=== PATIENT | male | born 1950 | race African-American/Black ===

== ENCOUNTER 2016-07-19 22:43 | Inpatient (IN) | payer MEDICARE ==
[2016-07-19 23:11] VITALS: BMI 27.8
--- NOTE | 2016-07-19 23:11 | HP ---
[id number] 4d 3 Anxiety: 4-Mod. Anxious/Guarded Agitation: 4-Moderately Restless Paroxysmal Sweats: 2 Orientation: 3-Disoriented Date>2 days Tacttile Disturbances: 0-None Auditory Disturbances: 0-None Visual Disturbances: 0-None Headache: 0-None Present CIWA-Ar Total Score: 17 Admission ROS BHS - HPI Chief Complaint: withdrawal sx Allergies/Adverse Reactions: Allergies Allergy/AdvReac Type Severity Reaction Status Date / Time No Known Allergies Allergy Verified 07/19/16 22:47 History of Present Illness: 66 years old male with long history of alcohol nicotine cocaine dependence denies medical denies mental illness is admitted to detox Exam Limitations: No Limitations - Ebola screening Have you traveled outside of the country in the last 21 days: No Have you had contact with anyone from an Ebola affected area: No Have you been sick,other than usual withdrawal symptoms: No Do you have a fever: No - Review of Systems Constitutional: Chills, Loss of Appetite, Changes in sleep, Unexplained wgt Loss EENT: reports: Dental Problems (few teeth missing), Other (eye glasses) Respiratory: reports: No Symptoms reported Cardiac: reports: No Symptoms Reported GI: reports: Nausea, Poor Appetite, Poor Fluid Intake, Abdominal cramping : reports: No Symptoms Reported Musculoskeletal: reports: No Symptoms Reported Integumentary: reports: No Symptoms Reported Neuro: reports: Tremors Endocrine: reports: No Symptoms Reported Hematology: reports: No Symptoms Reported Psychiatric: reports: Judgement Intact, Mood/Affect Appropiate Other Systems: Reviewed and Negative Patient History - Patient Medical History Hx Anemia: No Hx Asthma: No Hx Chronic Obstructive Pulmonary Disease (COPD): No Hx Cancer: No Hx Cardiac Disorders: No Hx Congestive Heart Failure: No Hx Hypertension: No Hx Hypercholesterolemia: No Hx Pacemaker: No HX Cerebrovascular Accident: No Hx Seizures: No Hx Dementia: No Hx Diabetes: No Hx Gastrointestinal Disorders: No Hx Liver Disease: No Hx Genitourinary Disorders: No Hx Sexually Transmitted Disorders: No Hx Renal Disease (ESRD): No Hx Thyroid Disease: No Hx Human Immunodeficiency Virus (HIV): No (neg in 2011) Hx Hepatitis C: No (Does not remember when last tested.) Hx Depression: No Hx Suicide Attempt: No Hx Bipolar Disorder: No Hx Schizophrenia: No - Patient Surgical History Past Surgical History: No Hx Neurologic Surgery: No Hx Cataract Extraction: No Hx Cardiac Surgery: No Hx Lung Surgery: No Hx Breast Surgery: No Hx Breast Biopsy: No Hx Abdominal Surgery: No Hx Appendectomy: No Hx Cholecystectomy: No Hx Genitourinary Surgery: No Hx Orthopedic Surgery: No - PPD History Previous Implant?: Yes Documented Results: Negative w/proof Implanted On Prior [facility] Admission?: Yes Date: 05/30/16 Results: 0 PPD to be Administered?: No - Smoking Cessation Smoking history: Current every day smoker Have you smoked in the past 12 months: Yes Aproximately how many cigarettes per day: 40 Cigars Per Day: 0 Hx Chewing Tobacco Use: No Initiated information on smoking cessation: Yes 'Breaking Loose' booklet given: 07/19/16 - Substance & Tx. History Hx Alcohol Use: Yes Hx Substance Use: Yes Substance Use Type: Alcohol, Cocaine Hx Substance Use Treatment: Yes - Substances Abused Alcohol Route: Oral Frequency: Daily Amount used: 6 beer 16 [id number] Age of first use: 16 Date of Last Use: 07/19/16 Cocaine Route: Smoking Frequency: Daily Amount used: $100 Age of first use: 36 Date of Last Use: 07/18/16 Family Disease History - Family Disease History Family Disease History: Diabetes: Mother, Brother (.), Other: Father ( no contact) Admission Physical Exam [facility] - Physical General Appearance: Yes: Nourished, Appropriately Dressed, Mild Distress, Alcohol on Breath, Tremorous, Sweating, Anxious HEENTM: Yes: Hearing grossly Normal, Normal ENT Inspection, Normocephalic, Normal Voice Respiratory: Yes: Chest Non-Tender, Lungs Clear, Normal Breath Sounds, No Respiratory Distress, No Accessory Muscle Use Neck: Yes: Supple, Trachea in good position Breast: Yes: Breasts Symetrical Cardiology: Yes: Regular Rhythm, Regular Rate, S1, S2 Abdominal: Yes: Non Tender, Soft Genitourinary: Yes: Within Normal Limits Musculoskeletal: Yes: full range of Motion, Gait Steady Extremities: Yes: Normal Range of Motion, Non-Tender, Tremors 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: Yes: Alert, Motor Strength 5/5, Normal Mood/Affect, Normal Response Integumentary: Yes: Warm Lymphatic: Yes: Within Normal Limits - Diagnostic (1) Alcohol dependence with uncomplicated withdrawal Current Visit: Yes Status: Acute (2) Nicotine dependence Current Visit: Yes Status: Acute Qualifiers: Nicotine product type: cigarettes Substance use status: in withdrawal Qualified Code(s): F17.213 - Nicotine dependence, cigarettes, with withdrawal (3) Cocaine dependence, uncomplicated Current Visit: Yes Status: Chronic Cleared for Admission [facility] - Detox or Rehab [facility] Level of Care: Medically Managed Detox Regimen/Protocol: Librium BHS Breath Alcohol Content Breath Alcohol Content: 0.039 Vital Signs - Vital Signs Vital Signs Refused: No Temperature: 97.6 F Temperature Source: Oral Pulse Rate: 94 Respiratory Rate: 20 Blood Pressure: 119/72 BP Location: Left Arm Blood Pressure Position: Sitting - Height Height: 5 ft 10 in - Weight Weight: 194 lb Weight Measurement Method: Standing Scale Body Mass Index (BMI): 27.8 - Bowel Function Bowel Movement: Yes Urine Drug Screen - Control Is Test Valid: Yes - Results Drug Screen Negative: No Urine Drug Screen Results: MADHURI-Cocaine
[2016-07-19] MEDS ORDERED: P-EPHED 60MG/TRIPROLIDI 2.5MG TABLET PO PRN (23:15)
[2016-07-19] MEDS ORDERED: MENTHOL/PHENOL 1 EACH UD MM PRN (23:15)
[2016-07-19] MEDS ORDERED: MAG HYDROX/AL HYDROX/SIMETH 30 ML UNIT-DOSE CUP PO PRN (23:15)
[2016-07-19] MEDS ORDERED: guaiFENesin/D-METHORPHAN HB 10 ML UNIT-DOSE CUPS PO PRN (23:15)
[2016-07-19] MEDS ORDERED: hydrOXYzine PAMOATE 50 MG CAPSULE (FP) PO PRN (23:15)
[2016-07-19] MEDS ORDERED: diphenhydrAMINE HCL 50 MG CAPSULE PO PRN (23:15)
[2016-07-19] MEDS ORDERED: IBUPROFEN 400 MG TABLET (FP) PO PRN (23:15)
[2016-07-19] MEDS ORDERED: NICOTINE POLACRILEX 4 MG GUM BC PRN (23:15)
[2016-07-19] MEDS ORDERED: MAGNESIUM CITRATE 300 ML BOTTLE PO PRN (23:15)
[2016-07-19] MEDS ORDERED: chlordiazePOXIDE HCL 25 MG CAPSULE PO PRN (23:15)
[2016-07-19] MEDS ORDERED: NICOTINE 21 MG/24 HOURS TOPICAL PATCH TD PRN (23:15)
[2016-07-19] MEDS ORDERED: ACETAMINOPHEN 325 MG TABLET (FP) PO PRN (23:15)
[2016-07-19] MEDS ORDERED: LOPERAMIDE HCL 2 MG CAPSULE PO PRN (23:15)
[2016-07-19] MEDS ORDERED: MAGNESIUM HYDROX 2400MG/30ML ORAL SUSPENSION 30 ML CUP PO PRN (23:15)
[2016-07-19] MEDS: chlordiazePOXIDE HCL 25 MG CAPSULE PO SCH (23:46)
[2016-07-20] MEDS: chlordiazePOXIDE HCL 25 MG CAPSULE PO SCH ×4 (05:28→22:09)
--- NOTE | 2016-07-20 09:54 | PN ---
S CIWA - CIWA Score Nausea/Vomitin Muscle Tremors: 3 Anxiety: 3 Agitation: 2 Paroxysmal Sweats: 1-Minimal Palms Moist Orientation: 0-Oriented Tacttile Disturbances: 1-Very Mild Itch/Numbness Auditory Disturbances: 1-Very Mild Visual Disturbances: 1-Very Mild Sensitivity Headache: 2-Mild CIWA-Ar Total Score: 17 BHS Progress Note (SOAP) Subjective: ALERT,IRRITABLE,ANXIOUS,INTERRUPTED SLEEP,TREMOR Objective: 07/20/16 09:52 Vital Signs Temperature 97.2 F L 07/20/16 09:46 Pulse Rate 84 07/20/16 09:46 Respiratory Rate 18 07/20/16 09:46 Blood Pressure 119/76 07/20/16 09:46 O2 Sat by Pulse Oximetry (%) EKG NSR LABS PENDING Assessment: 07/20/16 09:54 WITHDRAWAL SYMPTOM Plan: CONTINUE DETOX
[2016-07-20 09:59] LABS: MCH 27.4 pg (25.7-33.7); MCHC 33.4 g/dl (32.0-35.9); MEAN PLT VOLUME 7.9 fl (7.5-11.1); PLATELET COUNT 211 K/MM3 (134-434); RDW 15.2 % (11.9-15.9); WHITE BLOOD COUNT 4.3 K/mm3 (4.0-10.0)
[2016-07-20] MEDS: PRENATAL VITAMINS W/ FOLIC ACID TABLET (FP) PO SCH (10:21)
[2016-07-20 10:44] LABS: ALBUMIN 3.3 g/dl (3.4-5.0); ALK PHOS 73 U/L (45-117); ANION GAP 8 (8-16); BILIRUBIN,TOTAL 0.7 mg/dL (0.2-1.0); CALCIUM 8.8 mg/dL (8.5-10.1); CO2 28 mmol/L (21-32); GLUCOSE,RANDOM 83 mg/dL (74-106); SGOT/AST 37 U/L (15-37); SGPT/ALT 30 U/L (12-78)
--- NOTE | 2016-07-20 15:26 | EKG ---
Test Reason : Blood Pressure : / mmHG Vent. Rate : 076 BPM Atrial Rate : 076 BPM P-R Int : 186 ms QRS Dur : 106 ms QT Int : 394 ms P-R-T Axes : 082 -46 -03 degrees QTc Int : 443 ms NORMAL SINUS RHYTHM LEFT ANTERIOR FASCICULAR BLOCK MINIMAL VOLTAGE CRITERIA FOR LVH, MAY BE NORMAL VARIANT SEPTAL INFARCT (CITED ON OR BEFORE 28-MAY-2016) ABNORMAL ECG WHEN COMPARED WITH ECG OF 28-MAY-2016 13:35, QUESTIONABLE CHANGE IN INITIAL FORCES OF SEPTAL LEADS T WAVE AMPLITUDE HAS INCREASED IN LATERAL LEADS Confirmed by DEMETRIS YAÑEZ MD ([id number]) on 07/20/2016 3:25:45 PM Referred By: Confirmed By:DEMETRIS YAÑEZ MD
[2016-07-20] MEDS: THIAMINE HCL 100 MG TABLET (FP) PO SCH (22:09)
[2016-07-20 23:05] LABS: URINE APPEARANCE CLEAR; URINE BILIRUBIN NEGATIVE (NEGATIVE); URINE BLOOD NEGATIVE (NEGATIVE); URINE COLOR LTYELLOW; URINE GLUCOSE (UA) NEGATIVE (NEGATIVE); URINE KETONE NEGATIVE (NEGATIVE); URINE LEUK ESTERASE NEGATIVE (NEGATIVE); URINE NITRITE NEGATIVE (NEGATIVE); URINE PROTEIN NEGATIVE (NEGATIVE); URINE UROBILINOGEN NEGATIVE E.U./dl (0.2-1.0)
[2016-07-21] MEDS: chlordiazePOXIDE HCL 25 MG CAPSULE PO SCH ×3 (05:28→17:29)
[2016-07-21] MEDS: PRENATAL VITAMINS W/ FOLIC ACID TABLET (FP) PO SCH (11:54)
--- NOTE | 2016-07-21 14:27 | PN ---
[facility] CIWA - CIWA Score Nausea/Vomitin-Mild Nausea/No Vomiting Muscle Tremors: 4-Moderate,w/Arms Extend Anxiety: 1-Mildly Anxious Agitation: 0-Normal Activity Paroxysmal Sweats: 3 Orientation: 1-Uncertain about Date Tacttile Disturbances: 2-Mild Itch/Numbness/Burn Auditory Disturbances: 2-Mild Harshness/Frighten Visual Disturbances: 0-None Headache: 0-None Present CIWA-Ar Total Score: 14 S Progress Note (SOAP) Subjective: Fatigue, Sweating, Tremors. Objective: PT. A & 0 X 2 (DISORIENTED ABOUT DAY / DATE). 07/21/16 14:24 Vital Signs Temperature 98.4 F 07/21/16 14:17 Pulse Rate 86 07/21/16 14:17 Respiratory Rate 20 07/21/16 14:17 Blood Pressure 136/87 07/21/16 14:17 O2 Sat by Pulse Oximetry (%) Laboratory Last Values WBC 4.3 K/mm3 (4.0-10.0) 07/20/16 07:00 RBC 4.54 M/mm3 (4.00-5.60) 07/20/16 07:00 Hgb 12.5 GM/dL (11.7-16.9) 07/20/16 07:00 Hct 37.3 % (35.4-49) 07/20/16 07:00 MCV 82.0 fl (80-96) 07/20/16 07:00 MCHC 33.4 g/dl (32.0-35.9) 07/20/16 07:00 RDW 15.2 % (11.9-15.9) 07/20/16 07:00 Plt Count 211 K/MM3 (134-434) 07/20/16 07:00 MPV 7.9 fl (7.5-11.1) 07/20/16 07:00 Sodium 143 mmol/L (136-145) 07/20/16 07:00 Potassium 3.6 mmol/L (3.5-5.1) 07/20/16 07:00 Chloride 107 mmol/L (98-107) 07/20/16 07:00 Carbon Dioxide 28 mmol/L (21-32) 07/20/16 07:00 Anion Gap 8 (8-16) 07/20/16 07:00 BUN 10 mg/dL (7-18) D 07/20/16 07:00 Creatinine 1.0 mg/dL (0.7-1.3) 07/20/16 07:00 Creat Clearance w eGFR > 60 (>60) 07/20/16 07:00 Random Glucose 83 mg/dL (74-106) D 07/20/16 07:00 Calcium 8.8 mg/dL (8.5-10.1) 07/20/16 07:00 Total Bilirubin 0.7 mg/dL (0.2-1.0) D 07/20/16 07:00 AST 37 U/L (15-37) D 07/20/16 07:00 ALT 30 U/L (12-78) D 07/20/16 07:00 Alkaline Phosphatase 73 U/L (45-117) 07/20/16 07:00 Total Protein 6.0 g/dl (6.4-8.2) L 07/20/16 07:00 Albumin 3.3 g/dl (3.4-5.0) L 07/20/16 07:00 Urine Color Ltyellow 07/20/16 22:29 Urine Appearance Clear 07/20/16 22:29 Urine pH 6.0 (5.0-8.0) 07/20/16 22:29 Ur Specific [place] 1.014 (1.001-1.035) 07/20/16 22:29 Urine Protein Negative (NEGATIVE) 07/20/16 22:29 Urine Glucose (UA) Negative (NEGATIVE) 07/20/16 22:29 Urine Ketones Negative (NEGATIVE) 07/20/16 22:29 Urine Blood Negative (NEGATIVE) 07/20/16 22:29 Urine Nitrite Negative (NEGATIVE) 07/20/16 22:29 Urine Bilirubin Negative (NEGATIVE) 07/20/16 22:29 Urine Urobilinogen Negative E.U./dl (0.2-1.0) 07/20/16 22:29 Ur Leukocyte Esterase Negative (NEGATIVE) 07/20/16 22:29 RPR Titer Nonreactive (NONREACTIVE) 07/20/16 07:00 Hepatitis C Antibody 0.1 s/co ratio (0.0-0.9) 07/19/16 07:00 LABS NOTED. Assessment: 07/21/16 14:26 WITHDRAWAL SYMPTOMS. Plan: CONTINUE DETOX.
[2016-07-21] MEDS: THIAMINE HCL 100 MG TABLET (FP) PO SCH (22:18)
[2016-07-21] MEDS: chlordiazePOXIDE 5 MG CAPSULE PO SCH (22:18)
[2016-07-22] MEDS: chlordiazePOXIDE 5 MG CAPSULE PO SCH ×2 (05:16→10:18)
[2016-07-22 09:37] VITALS: BP 125/86; PULSE 85; TEMP 96.4
[2016-07-22] MEDS: PRENATAL VITAMINS W/ FOLIC ACID TABLET (FP) PO SCH (10:18)
--- NOTE | 2016-07-22 14:23 | DS ---
[facility] Detox Discharge Summary Admission Date: 07/19/16 Discharge Date: 07/22/16 - History Present History: Alcohol Dependence, Cocaine Dependence Additional Comments: ADVISED PATIENT TO FOLLOW-UP WITH [facility] FOR GENERAL MEDICAL ASSESSMENT. - Physical Exam Results Vital Signs: Vital Signs Temperature 96.4 F L 07/22/16 09:37 Pulse Rate 85 07/22/16 09:37 Respiratory Rate 18 07/22/16 09:37 Blood Pressure 125/86 07/22/16 09:37 O2 Sat by Pulse Oximetry (%) Pertinent Admission Physical Exam Findings: WITHDRAWAL SYMPTOMS. Laboratory Last Values WBC 4.3 K/mm3 (4.0-10.0) 07/20/16 07:00 RBC 4.54 M/mm3 (4.00-5.60) 07/20/16 07:00 Hgb 12.5 GM/dL (11.7-16.9) 07/20/16 07:00 Hct 37.3 % (35.4-49) 07/20/16 07:00 MCV 82.0 fl (80-96) 07/20/16 07:00 MCHC 33.4 g/dl (32.0-35.9) 07/20/16 07:00 RDW 15.2 % (11.9-15.9) 07/20/16 07:00 Plt Count 211 K/MM3 (134-434) 07/20/16 07:00 MPV 7.9 fl (7.5-11.1) 07/20/16 07:00 Sodium 143 mmol/L (136-145) 07/20/16 07:00 Potassium 3.6 mmol/L (3.5-5.1) 07/20/16 07:00 Chloride 107 mmol/L (98-107) 07/20/16 07:00 Carbon Dioxide 28 mmol/L (21-32) 07/20/16 07:00 Anion Gap 8 (8-16) 07/20/16 07:00 BUN 10 mg/dL (7-18) D 07/20/16 07:00 Creatinine 1.0 mg/dL (0.7-1.3) 07/20/16 07:00 Creat Clearance w eGFR > 60 (>60) 07/20/16 07:00 Random Glucose 83 mg/dL (74-106) D 07/20/16 07:00 Calcium 8.8 mg/dL (8.5-10.1) 07/20/16 07:00 Total Bilirubin 0.7 mg/dL (0.2-1.0) D 07/20/16 07:00 AST 37 U/L (15-37) D 07/20/16 07:00 ALT 30 U/L (12-78) D 07/20/16 07:00 Alkaline Phosphatase 73 U/L (45-117) 07/20/16 07:00 Total Protein 6.0 g/dl (6.4-8.2) L 07/20/16 07:00 Albumin 3.3 g/dl (3.4-5.0) L 07/20/16 07:00 Urine Color Ltyellow 07/20/16 22:29 Urine Appearance Clear 07/20/16 22:29 Urine pH 6.0 (5.0-8.0) 07/20/16 22:29 Ur Specific [place] 1.014 (1.001-1.035) 07/20/16 22:29 Urine Protein Negative (NEGATIVE) 07/20/16 22:29 Urine Glucose (UA) Negative (NEGATIVE) 07/20/16 22:29 Urine Ketones Negative (NEGATIVE) 07/20/16 22:29 Urine Blood Negative (NEGATIVE) 07/20/16 22:29 Urine Nitrite Negative (NEGATIVE) 07/20/16 22:29 Urine Bilirubin Negative (NEGATIVE) 07/20/16 22:29 Urine Urobilinogen Negative E.U./dl (0.2-1.0) 07/20/16 22:29 Ur Leukocyte Esterase Negative (NEGATIVE) 07/20/16 22:29 RPR Titer Nonreactive (NONREACTIVE) 07/20/16 07:00 Hepatitis C Antibody 0.1 s/co ratio (0.0-0.9) 07/19/16 07:00 LABS NOTED. - Treatment Hospital Course: Detoxed Safely - Medication Discharge Medications: Ambulatory Orders NK [No Known Home Medication] 03/19/14 - Diagnosis (1) Alcohol dependence with uncomplicated withdrawal Status: Acute (2) Nicotine dependence Status: Chronic Qualifiers: Nicotine product type: cigarettes Substance use status: in withdrawal Qualified Code(s): F17.213 - Nicotine dependence, cigarettes, with withdrawal (3) Cocaine dependence, uncomplicated Status: Acute - AMA Did Patient Leave Against Medical Advice: Yes (PATIENT DID NOT WANT TO STAY TO COMPLETE DETOX PROTOCOL.)
[2016-07-22] MEDS ORDERED: chlordiazePOXIDE HCL 10 MG CAPSULE PO SCH (23:00)
== END 2016-07-22 11:00 | disposition left against medical advice (07) | DRG 770 ==
LOC: YASAS 22:43 → Y3N 23:04
PROVIDERS: ADMIT Internal Medicine; ATTEND Internal Medicine
PROC: HZ2ZZZZ Detoxification Services for Substance Abuse Treatment (ICD-10-PCS; principal; 2016-07-22)
DX: F10.230 Alcohol dependence with withdrawal, uncomplicated (principal); F14.20 Cocaine dependence, uncomplicated; F17.213 Nicotine dependence, cigarettes, with withdrawal
CPT/HCPCS: 36415; 80053; 81003; 85027; 86593; 93005; 93010

== ENCOUNTER 2016-12-29 08:36 | Inpatient (IN) | payer SELFPAY ==
[2016-12-29 09:22] VITALS: BMI 22.9
--- NOTE | 2016-12-29 15:05 | HP ---
CIWA Score - CIWA Score Nausea/Vomitin Muscle Tremors: 3 Anxiety: 3 Agitation: 3 Paroxysmal Sweats: 1-Minimal Palms Moist Orientation: 0-Oriented Tacttile Disturbances: 2-Mild Itch/Numbness/Burn Auditory Disturbances: 2-Mild Harshness/Frighten Visual Disturbances: 2-Mild Sensitivity Headache: 2-Mild CIWA-Ar Total Score: 21 Admission ROS BHS - HPI Chief Complaint: i need help to stop drinking alcohol and cocaine Allergies/Adverse Reactions: Allergies Allergy/AdvReac Type Severity Reaction Status Date / Time No Known Allergies Allergy Verified 12/29/16 12:48 History of Present Illness: this 66 years old male with alcohol and cocaine dependence,seeking detox,last treatment [facility] 07/19/16 tp 07/22/16 syncope multiple admissions in detox nicotine dependence longest period of sobriety 2 years Exam Limitations: No Limitations - Ebola screening Have you traveled outside of the country in the last 21 days: No Have you been sick,other than usual withdrawal symptoms: No - Review of Systems Constitutional: Loss of Appetite, Malaise, Night Sweats, Changes in sleep, Unintentional Wgt. Loss EENT: reports: Nose Congestion Respiratory: reports: No Symptoms reported GI: reports: No Symptoms Reported : reports: No Symptoms Reported Musculoskeletal: reports: Back Pain, Muscle Pain Integumentary: reports: Dryness Neuro: reports: Tremors Endocrine: reports: No Symptoms Reported Hematology: reports: No Symptoms Reported Psychiatric: reports: No Sypmtoms Reported, Judgement Intact, Mood/Affect Appropiate, Orientated x3 Patient History - Patient Medical History Hx Anemia: No Hx Asthma: No Hx Chronic Obstructive Pulmonary Disease (COPD): No Hx Cancer: No Hx Cardiac Disorders: No Hx Congestive Heart Failure: No Hx Hypertension: No Hx Hypercholesterolemia: No Hx Pacemaker: No HX Cerebrovascular Accident: No Hx Seizures: No Hx Dementia: No Hx Diabetes: No Hx Gastrointestinal Disorders: No Hx Liver Disease: No Hx Genitourinary Disorders: No Hx Sexually Transmitted Disorders: No Hx Renal Disease (ESRD): No Hx Thyroid Disease: No Hx Human Immunodeficiency Virus (HIV): No (2014 last negative) Hx Hepatitis C: No Hx Depression: No Hx Suicide Attempt: No Hx Bipolar Disorder: No Hx Schizophrenia: No Other Medical History: no suicidal,no homicdal - Patient Surgical History Past Surgical History: No Hx Neurologic Surgery: No Hx Cataract Extraction: No Hx Cardiac Surgery: No Hx Lung Surgery: No Hx Breast Surgery: No Hx Breast Biopsy: No Hx Abdominal Surgery: No Hx Appendectomy: No Hx Cholecystectomy: No Hx Genitourinary Surgery: No Hx Section: No Hx Orthopedic Surgery: No Anesthesia Reaction: No - PPD History Previous Implant?: Yes Documented Results: Negative w/proof Implanted On Prior [facility] Admission?: Yes Date: 05/30/16 Results: 0 mm PPD to be Administered?: No - Smoking Cessation Smoking history: Current every day smoker Have you smoked in the past 12 months: Yes Aproximately how many cigarettes per day: 40 Cigars Per Day: 0 Hx Chewing Tobacco Use: No Initiated information on smoking cessation: Yes 'Breaking Loose' booklet given: 12/29/16 - Substance & Tx. History Hx Alcohol Use: Yes Hx Substance Use: Yes Substance Use Type: Alcohol, Cocaine Hx Substance Use Treatment: Yes ([facility] last 07/19 17 tp 09/21/16) - Substances Abused Crack Route: Smoking Frequency: Daily Amount used: $50-60 Age of first use: 36 Date of Last Use: 12/28/16 Alcohol-beer Route: Oral Frequency: Daily Amount used: 2-6 pks. Age of first use: 16 Date of Last Use: 12/28/16 Family Disease History - Family Disease History Family Disease History: Diabetes: Mother, Brother (.), Other: Father ( no contact) Admission Physical Exam BHS - Vital Signs Vital Signs: Vital Signs - 24 hr 12/29/16 09:10 Temperature 96.9 F L Pulse Rate 70 Respiratory 18 Rate Blood Pressure 134/60 - Physical General Appearance: Yes: Moderate Distress, Tremorous, Irritable, Anxious HEENTM: Yes: Normal ENT Inspection, DAVIS, Pharynx Normal Respiratory: Yes: Lungs Clear, Normal Breath Sounds, No Respiratory Distress Neck: Yes: Within Normal Limits Breast: Yes: Within Normal Limits Cardiology: Yes: Within Normal Limits, Regular Rhythm, Regular Rate, S1, S2 Abdominal: Yes: Normal Bowel Sounds, Non Tender, Soft, Organomegaly Genitourinary: Yes: Within Normal Limits Back: Yes: Muscle Spasm Musculoskeletal: Yes: full range of Motion, Back pain, Muscle Pain Extremities: Yes: Normal Range of Motion, Tremors 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: Yes: make up worker II-XII NML intact, Fully Oriented, Alert, Motor Strength 5/5 Integumentary: Yes: Dry Lymphatic: Yes: Within Normal Limits - Diagnostic (1) Alcohol dependence with uncomplicated withdrawal Current Visit: No Status: Acute (2) Cocaine dependence Current Visit: No Status: Acute Qualifiers: Substance use status: uncomplicated Qualified Code(s): F14.20 - Cocaine dependence, uncomplicated (3) Nicotine dependence Current Visit: No Status: Chronic Qualifiers: Nicotine product type: cigarettes Substance use status: in withdrawal Qualified Code(s): F17.213 - Nicotine dependence, cigarettes, with withdrawal (4) Syncope Current Visit: Yes Status: Acute (5) Weight loss Current Visit: Yes Status: Acute Cleared for Admission S - Detox or Rehab S Level of Care: Medically Managed Detox Regimen/Protocol: Librium S Breath Alcohol Content Breath Alcohol Content: 0 Urine Drug Screen - Results Drug Screen Negative: No Urine Drug Screen Results: MADHURI-Cocaine
[2016-12-29] MEDS ORDERED: hydrOXYzine PAMOATE 25 MG CAPSULE (FP) PO PRN (15:14)
[2016-12-29] MEDS ORDERED: MAG HYDROX/AL HYDROX/SIMETH 30 ML UNIT-DOSE CUP PO PRN (15:14)
[2016-12-29] MEDS ORDERED: IBUPROFEN 400 MG TABLET (FP) PO PRN (15:14)
[2016-12-29] MEDS ORDERED: diphenhydrAMINE HCL 50 MG CAPSULE PO PRN (15:14)
[2016-12-29] MEDS ORDERED: P-EPHED 60MG/TRIPROLIDI 2.5MG TABLET PO PRN (15:14)
[2016-12-29] MEDS ORDERED: LOPERAMIDE HCL 2 MG CAPSULE PO PRN (15:14)
[2016-12-29] MEDS ORDERED: MENTHOL/PHENOL 1 EACH UD MM PRN (15:14)
[2016-12-29] MEDS ORDERED: chlordiazePOXIDE HCL 25 MG CAPSULE PO PRN (15:14)
[2016-12-29] MEDS ORDERED: ACETAMINOPHEN 325 MG TABLET (FP) PO PRN (15:14)
[2016-12-29] MEDS ORDERED: guaiFENesin/D-METHORPHAN HB 10 ML UNIT-DOSE CUPS PO PRN (15:14)
[2016-12-29] MEDS ORDERED: MAGNESIUM HYDROX 2400MG/30ML ORAL SUSPENSION 30 ML CUP PO PRN (15:14)
[2016-12-29] MEDS ORDERED: MAGNESIUM CITRATE 300 ML BOTTLE PO PRN (15:14)
[2016-12-29] MEDS ORDERED: chlordiazePOXIDE HCL 25 MG CAPSULE PO ONE (15:45)
[2016-12-29] MEDS: chlordiazePOXIDE HCL 25 MG CAPSULE PO SCH ×2 (16:49→22:17)
[2016-12-29 18:21] LABS: URINE APPEARANCE CLEAR; URINE BILIRUBIN NEGATIVE (NEGATIVE); URINE BLOOD NEGATIVE (NEGATIVE); URINE COLOR YELLOW; URINE GLUCOSE (UA) NEGATIVE (NEGATIVE); URINE KETONE NEGATIVE (NEGATIVE); URINE LEUK ESTERASE NEGATIVE (NEGATIVE); URINE NITRITE NEGATIVE (NEGATIVE); URINE PROTEIN NEGATIVE (NEGATIVE); URINE UROBILINOGEN NEGATIVE mg/dL (0.2-1.0)
[2016-12-29] MEDS: THIAMINE HCL 100 MG TABLET (FP) PO SCH (22:17)
[2016-12-30] MEDS: chlordiazePOXIDE HCL 25 MG CAPSULE PO SCH ×4 (06:23→22:34)
[2016-12-30 10:39] LABS: MCH 29.1 pg (25.7-33.7); MCHC 33.3 g/dl (32.0-35.9); MEAN CELL VOLUME 87.4 fl (80-96); MEAN PLT VOLUME 8.5 fl (7.5-11.1); PLATELET COUNT 241 K/MM3 (134-434); RDW 14.9 % (11.9-15.9); WHITE BLOOD COUNT 3.6 K/mm3 (4.0-10.0)
[2016-12-30 10:50] LABS: ALBUMIN 3.9 g/dl (3.4-5.0); ANION GAP 5 (8-16); CALCIUM 9.7 mg/dL (8.5-10.1); CO2 32 mmol/L (21-32); GLUCOSE,RANDOM 109 mg/dL (74-106)
[2016-12-30 10:53] LABS: ALK PHOS 87 U/L (45-117); BILIRUBIN,TOTAL 0.7 mg/dL (0.2-1.0); CREATININE 1.2 mg/dL (0.7-1.3); SGOT/AST 43 U/L (15-37); SGPT/ALT 35 U/L (12-78); TOT PROT 7.3 g/dl (6.4-8.2)
[2016-12-30] MEDS: PRENATAL VITAMINS W/ FOLIC ACID TABLET (FP) PO SCH (11:26)
--- NOTE | 2016-12-30 14:47 | PN ---
S CIWA - CIWA Score Nausea/Vomitin Muscle Tremors: 3 Anxiety: 3 Agitation: 3 Paroxysmal Sweats: 1-Minimal Palms Moist Orientation: 0-Oriented Tacttile Disturbances: 1-Very Mild Itch/Numbness Auditory Disturbances: 1-Very Mild Visual Disturbances: 1-Very Mild Sensitivity Headache: 2-Mild CIWA-Ar Total Score: 18 S Progress Note (SOAP) Subjective: ALERT,IRRITABLE,ANXIOUS,INTERRUPTED SLEEP,TREMOR Objective: 12/30/16 14:44 Vital Signs Temperature 97.3 F L 12/30/16 14:32 Pulse Rate 78 12/30/16 14:32 Respiratory Rate 18 12/30/16 14:32 Blood Pressure 104/66 12/30/16 14:32 O2 Sat by Pulse Oximetry (%) EKS NSR,INVERTED TIN 2.3.AVF,V5 TO V6 RATE 59/MIN NO CHEST PAIN,NO SOB,NO DIZZINESS Laboratory Last Values WBC 3.6 K/mm3 (4.0-10.0) L 12/30/16 06:10 RBC 4.85 M/mm3 (4.00-5.60) 12/30/16 06:10 Hgb 14.1 GM/dL (11.7-16.9) D 12/30/16 06:10 Hct 42.4 % (35.4-49) 12/30/16 06:10 MCV 87.4 fl (80-96) 12/30/16 06:10 MCH 29.1 pg (25.7-33.7) 12/30/16 06:10 MCHC 33.3 g/dl (32.0-35.9) 12/30/16 06:10 RDW 14.9 % (11.9-15.9) 12/30/16 06:10 Plt Count 241 K/MM3 (134-434) 12/30/16 06:10 MPV 8.5 fl (7.5-11.1) 12/30/16 06:10 Sodium 142 mmol/L (136-145) 12/30/16 06:10 Potassium 4.5 mmol/L (3.5-5.1) D 12/30/16 06:10 Chloride 105 mmol/L (98-107) 12/30/16 06:10 Carbon Dioxide 32 mmol/L (21-32) 12/30/16 06:10 Anion Gap 5 (8-16) L 12/30/16 06:10 BUN 16 mg/dL (7-18) D 12/30/16 06:10 Creatinine 1.2 mg/dL (0.7-1.3) 12/30/16 06:10 Creat Clearance w eGFR > 60 (>60) 12/30/16 06:10 Random Glucose 109 mg/dL (74-106) H D 12/30/16 06:10 Calcium 9.7 mg/dL (8.5-10.1) 12/30/16 06:10 Total Bilirubin 0.7 mg/dL (0.2-1.0) 12/30/16 06:10 AST 43 U/L (15-37) H 12/30/16 06:10 ALT 35 U/L (12-78) 12/30/16 06:10 Alkaline Phosphatase 87 U/L (45-117) 12/30/16 06:10 Total Protein 7.3 g/dl (6.4-8.2) D 12/30/16 06:10 Albumin 3.9 g/dl (3.4-5.0) 12/30/16 06:10 Urine Color Yellow 12/29/16 17:50 Urine Appearance Clear 12/29/16 17:50 Urine pH 5.0 (5.0-8.0) 12/29/16 17:50 Ur Specific [place] 1.020 (1.005-1.025) 12/29/16 17:50 Urine Protein Negative (NEGATIVE) 12/29/16 17:50 Urine Glucose (UA) Negative (NEGATIVE) 12/29/16 17:50 Urine Ketones Negative (NEGATIVE) 12/29/16 17:50 Urine Blood Negative (NEGATIVE) 12/29/16 17:50 Urine Nitrite Negative (NEGATIVE) 12/29/16 17:50 Urine Bilirubin Negative (NEGATIVE) 12/29/16 17:50 Urine Urobilinogen Negative mg/dL (0.2-1.0) 12/29/16 17:50 Ur Leukocyte Esterase Negative (NEGATIVE) 12/29/16 17:50 RPR Titer Nonreactive (NONREACTIVE) 12/30/16 06:10 Assessment: 12/30/16 14:46 WITHDRAWAL SYMPTOM Plan: CONTINUE DETOX
[2016-12-30] MEDS: THIAMINE HCL 100 MG TABLET (FP) PO SCH (22:34)
[2016-12-31] MEDS: chlordiazePOXIDE HCL 25 MG CAPSULE PO SCH ×2 (06:47→11:28)
[2016-12-31] MEDS: PRENATAL VITAMINS W/ FOLIC ACID TABLET (FP) PO SCH (11:30)
--- NOTE | 2016-12-31 12:23 | PN ---
S CIWA - CIWA Score Nausea/Vomitin Muscle Tremors: 3 Anxiety: 3 Agitation: 2 Paroxysmal Sweats: 1-Minimal Palms Moist Orientation: 0-Oriented Tacttile Disturbances: 1-Very Mild Itch/Numbness Auditory Disturbances: 1-Very Mild Visual Disturbances: 1-Very Mild Sensitivity Headache: 1-Very Mild CIWA-Ar Total Score: 16 S Progress Note (SOAP) Subjective: ALERT,IRRITABLE,ANXIOUS,INTERRUPTED SLEEP,TREMOR Objective: 12/31/16 12:22 Vital Signs Temperature 98.1 F 12/31/16 10:00 Pulse Rate 69 12/31/16 10:00 Respiratory Rate 16 12/31/16 10:00 Blood Pressure 120/71 12/31/16 10:00 O2 Sat by Pulse Oximetry (%) 12/31/16 12:22 Laboratory Last Values WBC 3.6 K/mm3 (4.0-10.0) L 12/30/16 06:10 RBC 4.85 M/mm3 (4.00-5.60) 12/30/16 06:10 Hgb 14.1 GM/dL (11.7-16.9) D 12/30/16 06:10 Hct 42.4 % (35.4-49) 12/30/16 06:10 MCV 87.4 fl (80-96) 12/30/16 06:10 MCH 29.1 pg (25.7-33.7) 12/30/16 06:10 MCHC 33.3 g/dl (32.0-35.9) 12/30/16 06:10 RDW 14.9 % (11.9-15.9) 12/30/16 06:10 Plt Count 241 K/MM3 (134-434) 12/30/16 06:10 MPV 8.5 fl (7.5-11.1) 12/30/16 06:10 Sodium 142 mmol/L (136-145) 12/30/16 06:10 Potassium 4.5 mmol/L (3.5-5.1) D 12/30/16 06:10 Chloride 105 mmol/L (98-107) 12/30/16 06:10 Carbon Dioxide 32 mmol/L (21-32) 12/30/16 06:10 Anion Gap 5 (8-16) L 12/30/16 06:10 BUN 16 mg/dL (7-18) D 12/30/16 06:10 Creatinine 1.2 mg/dL (0.7-1.3) 12/30/16 06:10 Creat Clearance w eGFR > 60 (>60) 12/30/16 06:10 Random Glucose 109 mg/dL (74-106) H D 12/30/16 06:10 Calcium 9.7 mg/dL (8.5-10.1) 12/30/16 06:10 Total Bilirubin 0.7 mg/dL (0.2-1.0) 12/30/16 06:10 AST 43 U/L (15-37) H 12/30/16 06:10 ALT 35 U/L (12-78) 12/30/16 06:10 Alkaline Phosphatase 87 U/L (45-117) 12/30/16 06:10 Total Protein 7.3 g/dl (6.4-8.2) D 12/30/16 06:10 Albumin 3.9 g/dl (3.4-5.0) 12/30/16 06:10 Urine Color Yellow 12/29/16 17:50 Urine Appearance Clear 12/29/16 17:50 Urine pH 5.0 (5.0-8.0) 12/29/16 17:50 Ur Specific [place] 1.020 (1.005-1.025) 12/29/16 17:50 Urine Protein Negative (NEGATIVE) 12/29/16 17:50 Urine Glucose (UA) Negative (NEGATIVE) 12/29/16 17:50 Urine Ketones Negative (NEGATIVE) 12/29/16 17:50 Urine Blood Negative (NEGATIVE) 12/29/16 17:50 Urine Nitrite Negative (NEGATIVE) 12/29/16 17:50 Urine Bilirubin Negative (NEGATIVE) 12/29/16 17:50 Urine Urobilinogen Negative mg/dL (0.2-1.0) 12/29/16 17:50 Ur Leukocyte Esterase Negative (NEGATIVE) 12/29/16 17:50 RPR Titer Nonreactive (NONREACTIVE) 12/30/16 06:10 Assessment: 12/31/16 12:22 WITHDRAWAL SYMPTOM Plan: CONTINUE DETOX
[2016-12-31] MEDS: chlordiazePOXIDE 5 MG CAPSULE PO SCH ×2 (17:25→22:17)
[2016-12-31] MEDS: THIAMINE HCL 100 MG TABLET (FP) PO SCH (22:17)
--- NOTE | 2016-12-31 22:34 | EKG ---
Test Reason : Blood Pressure : / mmHG Vent. Rate : 059 BPM Atrial Rate : 059 BPM P-R Int : 170 ms QRS Dur : 120 ms QT Int : 416 ms P-R-T Axes : 074 -39 -44 degrees QTc Int : 411 ms SINUS BRADYCARDIA LEFT AXIS DEVIATION NON-SPECIFIC INTRA-VENTRICULAR CONDUCTION DELAY T WAVE ABNORMALITY, CONSIDER INFEROLATERAL ISCHEMIA ABNORMAL ECG WHEN COMPARED WITH ECG OF 19-JUL-2016 22:49, CRITERIA FOR SEPTAL INFARCT ARE NO LONGER PRESENT T WAVE INVERSION MORE EVIDENT IN INFERIOR LEADS T WAVE INVERSION NOW EVIDENT IN LATERAL LEADS Confirmed by OSCAR JAIME MD ([id number]) on 12/31/2016 10:33:56 PM Referred By: Frederick Metzger Confirmed By:OSCAR JAIME MD
[2017-01-01] MEDS: chlordiazePOXIDE 5 MG CAPSULE PO SCH ×2 (06:31→10:40)
[2017-01-01] MEDS: PRENATAL VITAMINS W/ FOLIC ACID TABLET (FP) PO SCH (10:40)
--- NOTE | 2017-01-01 11:10 | PN ---
S Progress Note (SOAP) Subjective: ALERT,IRRITABLE,ANXIOUS,INTERRUPTED SLEEP Objective: 01/01/17 11:09 Vital Signs Temperature 98.2 F 01/01/17 10:00 Pulse Rate 78 01/01/17 10:00 Respiratory Rate 18 01/01/17 10:00 Blood Pressure 104/71 01/01/17 10:00 O2 Sat by Pulse Oximetry (%) Assessment: 01/01/17 11:10 WITHDRAWAL SYMPTOM Plan: CONTINUE DETOX,DISCHARGE IN AM
[2017-01-01] MEDS: chlordiazePOXIDE HCL 10 MG CAPSULE PO SCH ×2 (17:05→22:11)
[2017-01-01] MEDS: THIAMINE HCL 100 MG TABLET (FP) PO SCH (22:11)
[2017-01-02 06:26] VITALS: BP 113/67; PULSE 67; TEMP 96.3
[2017-01-02] MEDS: chlordiazePOXIDE HCL 10 MG CAPSULE PO SCH (06:34)
--- NOTE | 2017-01-02 08:13 | DS ---
[facility] Detox Discharge Summary Admission Date: 12/29/16 Discharge Date: 01/02/17 - History Present History: Alcohol Dependence, Cocaine Dependence Additional Comments: follow up with after care program as arrangement Pertinent Past History: syncope nicotine dependence weight loss - Physical Exam Results Vital Signs: Vital Signs Temperature 96.3 F L 01/02/17 06:00 Pulse Rate 67 01/02/17 06:00 Respiratory Rate 18 01/02/17 06:00 Blood Pressure 113/67 01/02/17 06:00 O2 Sat by Pulse Oximetry (%) Pertinent Admission Physical Exam Findings: withdrawal symptom - Treatment Hospital Course: Detox Protocol Followed, Detoxed Safely, Responded well, Discharged Condition Good Patient has Accepted a Rehab Referral to: declined - Medication Discharge Medications: Ambulatory Orders NK [No Known Home Medication] 03/19/14 - Diagnosis (1) Alcohol dependence with uncomplicated withdrawal Current Visit: No Status: Acute (2) Cocaine dependence Current Visit: No Status: Acute Qualifiers: Substance use status: uncomplicated Qualified Code(s): F14.20 - Cocaine dependence, uncomplicated (3) Nicotine dependence Current Visit: No Status: Chronic Qualifiers: Nicotine product type: cigarettes Substance use status: in withdrawal Qualified Code(s): F17.213 - Nicotine dependence, cigarettes, with withdrawal (4) Syncope Current Visit: Yes Status: Acute (5) Weight loss Current Visit: Yes Status: Acute - AMA Did Patient Leave Against Medical Advice: No
== END 2017-01-02 09:02 | disposition home or self-care (01) | DRG 774 ==
LOC: YASAS 08:36 → Y6N 15:13
PROVIDERS: ADMIT Internal Medicine Addiction Medicine; ATTEND Internal Medicine Addiction Medicine
PROC: HZ2ZZZZ Detoxification Services for Substance Abuse Treatment (ICD-10-PCS; principal; 2017-01-02)
DX: F10.230 Alcohol dependence with withdrawal, uncomplicated (principal); F14.20 Cocaine dependence, uncomplicated; F17.210 Nicotine dependence, cigarettes, uncomplicated; R55 Syncope and collapse; R63.4 Abnormal weight loss; Z68.23 Body mass index [BMI] 23.0-23.9, adult
CPT/HCPCS: 36415; 80053; 81003; 85027; 86593; 93005; 93010

== ENCOUNTER 2017-02-21 12:50 | Inpatient (IN) | payer OTHER ==
[2017-02-21 15:27] VITALS: BMI 22.9
--- NOTE | 2017-02-21 16:40 | HP ---
CIWA Score - CIWA Score Nausea/Vomitin-No Nausea/No Vomiting Muscle Tremors: 4-Moderate,w/Arms Extend Anxiety: 4-Mod. Anxious/Guarded Agitation: 4-Moderately Restless Paroxysmal Sweats: 2 Orientation: 1-Uncertain about Date Tacttile Disturbances: 1-Very Mild Itch/Numbness Auditory Disturbances: 0-None Visual Disturbances: 0-None Headache: 0-None Present CIWA-Ar Total Score: 16 Admission ROS S - HPI Chief Complaint: Alcohol withdrawal Allergies/Adverse Reactions: Allergies Allergy/AdvReac Type Severity Reaction Status Date / Time No Known Allergies Allergy Verified 12/29/16 12:48 History of Present Illness: 66 years old AA male with a long hx of alcohol and cocaine dependence is admitted for detox. Patient has been in previous detox. Reports 8 months of sobriety. Exam Limitations: No Limitations - Ebola screening Have you traveled outside of the country in the last 21 days: No Have you had contact with anyone from an Ebola affected area: No Have you been sick,other than usual withdrawal symptoms: No Do you have a fever: No - Review of Systems Constitutional: Malaise, Night Sweats, Changes in sleep, Weakness, Unexplained wgt Loss EENT: reports: Other (missing upper teeth) Respiratory: reports: No Symptoms reported Cardiac: reports: No Symptoms Reported GI: reports: Poor Appetite, Poor Fluid Intake Musculoskeletal: reports: No Symptoms Reported Neuro: reports: Tingling, Tremors Endocrine: reports: Flushing Hematology: reports: No Symptoms Reported Psychiatric: reports: Mood/Affect Appropiate, Orientated x3, Anxious Other Systems: Reviewed and Negative Patient History - Patient Medical History Hx Anemia: No Hx Asthma: No Hx Chronic Obstructive Pulmonary Disease (COPD): No Hx Cancer: No Hx Cardiac Disorders: Yes (Diagnosis unknown. ) Hx Congestive Heart Failure: No Hx Hypertension: No Hx Hypercholesterolemia: No Hx Pacemaker: No HX Cerebrovascular Accident: No Hx Seizures: No Hx Dementia: No Hx Diabetes: No Hx Gastrointestinal Disorders: No Hx Liver Disease: No Hx Genitourinary Disorders: No Hx Sexually Transmitted Disorders: No Hx Renal Disease (ESRD): No Hx Thyroid Disease: No Hx Human Immunodeficiency Virus (HIV): No (NEGATIVE 2014) Hx Hepatitis C: No Hx Depression: No Hx Suicide Attempt: No Hx Bipolar Disorder: No Hx Schizophrenia: No - Patient Surgical History Past Surgical History: No Hx Neurologic Surgery: No Hx Cataract Extraction: No Hx Cardiac Surgery: No Hx Lung Surgery: No Hx Breast Surgery: No Hx Breast Biopsy: No Hx Abdominal Surgery: No Hx Appendectomy: No Hx Cholecystectomy: No Hx Genitourinary Surgery: No Hx Section: No Hx Orthopedic Surgery: No Anesthesia Reaction: No - PPD History Previous Implant?: Yes Documented Results: Negative w/proof Implanted On Prior [facility] Admission?: Yes Date: 05/30/16 Results: 0 mm PPD to be Administered?: No - Reproductive History Patient is a Female of Child Bearing Age (11 -55 yrs old): No (MALE) - Smoking Cessation Smoking history: Current every day smoker Have you smoked in the past 12 months: Yes Aproximately how many cigarettes per day: 40 Cigars Per Day: 0 Hx Chewing Tobacco Use: No Initiated information on smoking cessation: Yes 'Breaking Loose' booklet given: 02/21/17 - Substance & Tx. History Hx Alcohol Use: Yes (BEER) Hx Substance Use: Yes (COCAINE) Substance Use Type: Alcohol, Cocaine Hx Substance Use Treatment: Yes ([facility] 12/2016) - Substances Abused Alcohol Route: Oral Frequency: Daily Amount used: 2 X 6 PACKS Age of first use: 16 Date of Last Use: 02/20/17 Cocaine Route: Smoking Frequency: Daily Amount used: $50 (2 PACKS A DAY) Age of first use: 36 Date of Last Use: 02/20/17 Family Disease History - Family Disease History Family Disease History: Diabetes: Mother (), Brother (), Other: Father (no contact) Admission Physical Exam S - Vital Signs Vital Signs: Vital Signs - 24 hr 02/21/17 15:25 Temperature 96.2 F L Pulse Rate 78 Respiratory 20 Rate Blood Pressure 101/74 - Physical General Appearance: Yes: Moderate Distress, Tremorous, Anxious HEENTM: Yes: Normal Voice, DAVIS, Other (RIGHT UPPER EYELID STYE) Respiratory: Yes: Lungs Clear, Normal Breath Sounds, No Respiratory Distress Neck: Yes: Supple Breast: Yes: Breast Exam Deferred Cardiology: Yes: Regular Rhythm, Regular Rate, S1, S2 Abdominal: Yes: Normal Bowel Sounds, Non Tender, Soft Genitourinary: Yes: Within Normal Limits Back: Yes: Within Normal Limits Musculoskeletal: Yes: Within Normal Limits Extremities: Yes: Tremors 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: Yes: Alert, Normal Mood/Affect, Normal Response Integumentary: Yes: Dry Lymphatic: Yes: Within Normal Limits - Diagnostic (1) Alcohol dependence with uncomplicated withdrawal Current Visit: Yes Status: Acute (2) Cocaine dependence, uncomplicated Current Visit: Yes Status: Acute (3) Nicotine dependence Current Visit: Yes Status: Acute Qualifiers: Nicotine product type: cigarettes Substance use status: in withdrawal Qualified Code(s): F17.213 - Nicotine dependence, cigarettes, with withdrawal; F17.213 - Nicotine dependence, cigarettes, with withdrawal Cleared for Admission [facility] - Detox or Rehab [facility] Level of Care: Medically Managed Detox Regimen/Protocol: Librium [facility] Breath Alcohol Content Breath Alcohol Content: 0 Urine Drug Screen - Results Drug Screen Negative: No Urine Drug Screen Results: MADHURI-Cocaine
[2017-02-21] MEDS ORDERED: chlordiazePOXIDE HCL 25 MG CAPSULE PO PRN (17:03)
[2017-02-21] MEDS ORDERED: NICOTINE POLACRILEX 2 MG GUM BC PRN (17:03)
[2017-02-21] MEDS ORDERED: MENTHOL/PHENOL 1 EACH UD MM PRN (17:03)
[2017-02-21] MEDS ORDERED: MAGNESIUM CITRATE 300 ML BOTTLE PO PRN (17:03)
[2017-02-21] MEDS ORDERED: MAGNESIUM HYDROX 2400MG/30ML ORAL SUSPENSION 30 ML CUP PO PRN (17:03)
[2017-02-21] MEDS ORDERED: hydrOXYzine PAMOATE 50 MG CAPSULE (FP) PO PRN (17:03)
[2017-02-21] MEDS ORDERED: diphenhydrAMINE HCL 50 MG CAPSULE PO PRN (17:03)
[2017-02-21] MEDS ORDERED: MAG HYDROX/AL HYDROX/SIMETH 30 ML UNIT-DOSE CUP PO PRN (17:03)
[2017-02-21] MEDS ORDERED: IBUPROFEN 400 MG TABLET (FP) PO PRN (17:03)
[2017-02-21] MEDS ORDERED: guaiFENesin/D-METHORPHAN HB 10 ML UNIT-DOSE CUPS PO PRN (17:03)
[2017-02-21] MEDS ORDERED: LOPERAMIDE HCL 2 MG CAPSULE PO PRN (17:03)
[2017-02-21] MEDS ORDERED: P-EPHED 60MG/TRIPROLIDI 2.5MG TABLET PO PRN (17:03)
[2017-02-21] MEDS ORDERED: ACETAMINOPHEN 325 MG TABLET (FP) PO PRN (17:03)
[2017-02-21] MEDS: THIAMINE HCL 100 MG TABLET (FP) PO SCH (22:23)
[2017-02-21] MEDS: chlordiazePOXIDE HCL 25 MG CAPSULE PO SCH (22:24)
[2017-02-22] MEDS: chlordiazePOXIDE HCL 25 MG CAPSULE PO SCH ×4 (05:31→22:21)
[2017-02-22 10:45] LABS: MCH 28.9 pg (25.7-33.7); MCHC 33.7 g/dl (32.0-35.9); MEAN CELL VOLUME 85.7 fl (80-96); MEAN PLT VOLUME 8.1 fl (7.5-11.1); PLATELET COUNT 227 K/MM3 (134-434); RDW 14.4 % (11.9-15.9); WHITE BLOOD COUNT 3.5 K/mm3 (4.0-10.0)
[2017-02-22] MEDS: PRENATAL VITAMINS W/ FOLIC ACID TABLET (FP) PO SCH (10:52)
[2017-02-22] MEDS: NICOTINE 14 MG/24 HOURS TOPICAL PATCH TD SCH (10:53)
[2017-02-22 11:06] LABS: ALBUMIN 3.1 g/dl (3.4-5.0); ALK PHOS 72 U/L (45-117); ANION GAP 9 (8-16); BILIRUBIN,TOTAL 0.8 mg/dL (0.2-1.0); CALCIUM 8.4 mg/dL (8.5-10.1); CO2 27 mmol/L (21-32); CREATININE 0.9 mg/dL (0.7-1.3); GLUCOSE,RANDOM 82 mg/dL (74-106); SGOT/AST 23 U/L (15-37); SGPT/ALT 26 U/L (12-78); TOT PROT 5.8 g/dl (6.4-8.2)
--- NOTE | 2017-02-22 13:07 | EKG ---
Test Reason : Blood Pressure : / mmHG Vent. Rate : 072 BPM Atrial Rate : 072 BPM P-R Int : 162 ms QRS Dur : 108 ms QT Int : 386 ms P-R-T Axes : 074 -49 -30 degrees QTc Int : 422 ms NORMAL SINUS RHYTHM LEFT ANTERIOR FASCICULAR BLOCK SEPTAL INFARCT , AGE UNDETERMINED ABNORMAL ECG WHEN COMPARED WITH ECG OF 29-DEC-2016 15:51, SEPTAL INFARCT IS NOW PRESENT T WAVE INVERSION NO LONGER EVIDENT IN LATERAL LEADS Confirmed by DEMETRIS YAÑEZ MD ([id number]) on 02/22/2017 1:07:16 PM Referred By: Confirmed By:DEMETRIS YAÑEZ MD
--- NOTE | 2017-02-22 13:24 | PN ---
S CIWA - CIWA Score Nausea/Vomitin Muscle Tremors: 4-Moderate,w/Arms Extend Anxiety: 4-Mod. Anxious/Guarded Agitation: 4-Moderately Restless Paroxysmal Sweats: 5 Orientation: 0-Oriented Tacttile Disturbances: 1-Very Mild Itch/Numbness Auditory Disturbances: 0-None Visual Disturbances: 0-None Headache: 1-Very Mild CIWA-Ar Total Score: 22 [facility] Progress Note (SOAP) Subjective: Sweating, nausea, interrupted sleep, anxious Objective: 02/22/17 13:21 Last Vital Signs Temp Pulse Resp BP Pulse Ox 98.8 F 86 18 91/75 02/22/17 13:12 02/22/17 13:12 02/22/17 13:12 02/22/17 13:12 Noted with hypotension: b/p Laboratory Tests 02/22/17 02/22/17 02/22/17 07:20 07:20 07:20 WBC 3.5 L RBC 4.56 Hgb 13.2 Hct 39.1 MCV 85.7 MCH 28.9 MCHC 33.7 RDW 14.4 Plt Count 227 MPV 8.1 Sodium 144 Potassium 4.1 Chloride 108 H Carbon Dioxide 27 Anion Gap 9 BUN 14 Creatinine 0.9 D Creat Clearance w eGFR > 60 Random Glucose 82 D Calcium 8.4 L Total Bilirubin 0.8 AST 23 D ALT 26 D Alkaline Phosphatase 72 Total Protein 5.8 L D Albumin 3.1 L D RPR Titer Nonreactive Labs noted Assessment: 02/22/17 13:22 Withdrawal symptoms Noted with hypotension Plan: Continue detox Hypotension: asymptomatic, encouraged to drink lots of water (water pitcher ordered); librium dose held
[2017-02-22 18:14] LABS: URINE APPEARANCE CLEAR; URINE BILIRUBIN NEGATIVE (NEGATIVE); URINE BLOOD NEGATIVE (NEGATIVE); URINE COLOR LTYELLOW; URINE GLUCOSE (UA) NEGATIVE (NEGATIVE); URINE KETONE NEGATIVE (NEGATIVE); URINE NITRITE NEGATIVE (NEGATIVE); URINE PROTEIN NEGATIVE (NEGATIVE); URINE UROBILINOGEN NEGATIVE mg/dL (0.2-1.0)
[2017-02-22 21:08] LABS: URINE LEUK ESTERASE Negative (NEGATIVE)
[2017-02-22] MEDS: THIAMINE HCL 100 MG TABLET (FP) PO SCH (22:20)
[2017-02-23] MEDS: chlordiazePOXIDE HCL 25 MG CAPSULE PO SCH ×3 (05:59→17:04)
[2017-02-23] MEDS: PRENATAL VITAMINS W/ FOLIC ACID TABLET (FP) PO SCH (10:57)
[2017-02-23] MEDS: NICOTINE 14 MG/24 HOURS TOPICAL PATCH TD SCH (10:58)
--- NOTE | 2017-02-23 11:23 | PN ---
[facility] CIWA - CIWA Score Nausea/Vomitin-No Nausea/No Vomiting Muscle Tremors: 3 Anxiety: 2 Agitation: 2 Paroxysmal Sweats: 3 Orientation: 0-Oriented Tacttile Disturbances: 0-None Auditory Disturbances: 0-None Visual Disturbances: 0-None Headache: 0-None Present CIWA-Ar Total Score: 10 S Progress Note (SOAP) Subjective: Anxiety,tremors,sweating,interrupted sleep,restless Objective: 02/23/17 11:22 Vital Signs - 8 hr 02/23/17 02/23/17 04:04 06:33 Temperature 97.7 F Pulse Rate 64 Respiratory 18 18 Rate Blood Pressure 113/65 Laboratory Tests 02/22/17 02/22/17 02/22/17 07:20 07:20 07:20 WBC 3.5 L RBC 4.56 Hgb 13.2 Hct 39.1 MCV 85.7 MCH 28.9 MCHC 33.7 RDW 14.4 Plt Count 227 MPV 8.1 Sodium 144 Potassium 4.1 Chloride 108 H Carbon Dioxide 27 Anion Gap 9 BUN 14 Creatinine 0.9 D Creat Clearance w eGFR > 60 Random Glucose 82 D Calcium 8.4 L Total Bilirubin 0.8 AST 23 D ALT 26 D Alkaline Phosphatase 72 Total Protein 5.8 L D Albumin 3.1 L D Urine Color Urine Appearance Urine pH Ur Specific [place] Urine Protein Urine Glucose (UA) Urine Ketones Urine Blood Urine Nitrite Urine Bilirubin Urine Urobilinogen Ur Leukocyte Esterase RPR Titer Nonreactive 02/22/17 13:42 WBC RBC Hgb Hct MCV MCH MCHC RDW Plt Count MPV Sodium Potassium Chloride Carbon Dioxide Anion Gap BUN Creatinine Creat Clearance w eGFR Random Glucose Calcium Total Bilirubin AST ALT Alkaline Phosphatase Total Protein Albumin Urine Color Ltyellow Urine Appearance Clear Urine pH 7.0 D Ur Specific [place] 1.020 Urine Protein Negative Urine Glucose (UA) Negative Urine Ketones Negative Urine Blood Negative Urine Nitrite Negative Urine Bilirubin Negative Urine Urobilinogen Negative Ur Leukocyte Esterase Negative RPR Titer labs noted Assessment: 02/23/17 11:22 Withdrawal sx. Plan: Continue detox
--- NOTE | 2017-02-23 15:49 | PN ---
[facility] Progress Note Note: EKG x 2 reveal Septal infarct, new from previous admission in December 2016. When I informed pt. of findings he told me that he had cocaine induced ischemia a few weeks ago. He was hospitalized and told to stop using cocaine, he could not. Pt. denies chest pain, he feels fine. Vital Signs - 8 hr 02/23/17 02/23/17 11:29 13:59 Temperature 97.4 F L 97 F L Pulse Rate 73 70 Respiratory 18 20 Rate Blood Pressure 107/57 97/56 Dx. : Cocaine induced Ischemia P : Aspirin 81mg daily
[2017-02-23] MEDS: ASPIRIN COATED 81 MG TABLET.EC PO SCH (17:03)
[2017-02-23] MEDS: chlordiazePOXIDE 5 MG CAPSULE PO SCH (22:15)
[2017-02-23] MEDS: THIAMINE HCL 100 MG TABLET (FP) PO SCH (22:15)
[2017-02-24] MEDS: chlordiazePOXIDE 5 MG CAPSULE PO SCH ×3 (06:04→17:55)
[2017-02-24] MEDS: ASPIRIN COATED 81 MG TABLET.EC PO SCH (10:52)
[2017-02-24] MEDS: NICOTINE 14 MG/24 HOURS TOPICAL PATCH TD SCH (10:53)
[2017-02-24] MEDS: PRENATAL VITAMINS W/ FOLIC ACID TABLET (FP) PO SCH (10:53)
--- NOTE | 2017-02-24 12:52 | PN ---
[facility] Progress Note (SOAP) Subjective: Sweating,interrupted sleep,restless Objective: 02/24/17 12:51 Vital Signs - 8 hr 02/24/17 02/24/17 06:00 09:25 Temperature 97.7 F 97.2 F L Pulse Rate 66 82 Respiratory 18 18 Rate Blood Pressure 114/75 117/64 Laboratory Tests 02/22/17 02/22/17 02/22/17 07:20 07:20 07:20 WBC 3.5 L RBC 4.56 Hgb 13.2 Hct 39.1 MCV 85.7 MCH 28.9 MCHC 33.7 RDW 14.4 Plt Count 227 MPV 8.1 Sodium 144 Potassium 4.1 Chloride 108 H Carbon Dioxide 27 Anion Gap 9 BUN 14 Creatinine 0.9 D Creat Clearance w eGFR > 60 Random Glucose 82 D Calcium 8.4 L Total Bilirubin 0.8 AST 23 D ALT 26 D Alkaline Phosphatase 72 Total Protein 5.8 L D Albumin 3.1 L D Urine Color Urine Appearance Urine pH Ur Specific [place] Urine Protein Urine Glucose (UA) Urine Ketones Urine Blood Urine Nitrite Urine Bilirubin Urine Urobilinogen Ur Leukocyte Esterase RPR Titer Nonreactive 02/22/17 13:42 WBC RBC Hgb Hct MCV MCH MCHC RDW Plt Count MPV Sodium Potassium Chloride Carbon Dioxide Anion Gap BUN Creatinine Creat Clearance w eGFR Random Glucose Calcium Total Bilirubin AST ALT Alkaline Phosphatase Total Protein Albumin Urine Color Ltyellow Urine Appearance Clear Urine pH 7.0 D Ur Specific [place] 1.020 Urine Protein Negative Urine Glucose (UA) Negative Urine Ketones Negative Urine Blood Negative Urine Nitrite Negative Urine Bilirubin Negative Urine Urobilinogen Negative Ur Leukocyte Esterase Negative RPR Titer labs noted Assessment: 02/24/17 12:51 Withdrawal sx. Plan: Continue detox
--- NOTE | 2017-02-24 13:24 | EKG ---
Test Reason : Blood Pressure : / mmHG Vent. Rate : 073 BPM Atrial Rate : 073 BPM P-R Int : 180 ms QRS Dur : 102 ms QT Int : 380 ms P-R-T Axes : 069 -56 -05 degrees QTc Int : 418 ms NORMAL SINUS RHYTHM INCOMPLETE RIGHT BUNDLE BRANCH BLOCK LEFT ANTERIOR FASCICULAR BLOCK ABNORMAL ECG WHEN COMPARED WITH ECG OF 21-FEB-2017 18:43, NO SIGNIFICANT CHANGE WAS FOUND Confirmed by DIDIER SCOTT, CHICHI ([id number]) on 02/24/2017 1:24:28 PM Referred By: Confirmed By:CHICHI VELÁSQUEZ MD
[2017-02-24] MEDS: THIAMINE HCL 100 MG TABLET (FP) PO SCH (22:54)
[2017-02-24] MEDS: chlordiazePOXIDE HCL 10 MG CAPSULE PO SCH (22:54)
[2017-02-25] MEDS: chlordiazePOXIDE HCL 10 MG CAPSULE PO SCH ×2 (06:19→11:14)
[2017-02-25 09:27] VITALS: BP 144/69; PULSE 79; TEMP 97
[2017-02-25] MEDS: NICOTINE 14 MG/24 HOURS TOPICAL PATCH TD SCH (11:14)
[2017-02-25] MEDS: PRENATAL VITAMINS W/ FOLIC ACID TABLET (FP) PO SCH (11:14)
[2017-02-25] MEDS: ASPIRIN COATED 81 MG TABLET.EC PO SCH (11:14)
--- NOTE | 2017-02-25 13:59 | DS ---
[facility] Detox Discharge Summary Admission Date: 02/21/17 Discharge Date: 02/25/17 - History Present History: Alcohol Dependence, Cocaine Dependence Pertinent Past History: Denies - Physical Exam Results Vital Signs: Vital Signs Temperature 97.0 F L 02/25/17 09:26 Pulse Rate 79 02/25/17 09:26 Respiratory Rate 18 02/25/17 09:26 Blood Pressure 144/69 02/25/17 09:26 O2 Sat by Pulse Oximetry (%) Pertinent Admission Physical Exam Findings: Withdrawal symptoms Laboratory Tests 02/22/17 02/22/17 02/22/17 07:20 07:20 07:20 WBC 3.5 L RBC 4.56 Hgb 13.2 Hct 39.1 MCV 85.7 MCH 28.9 MCHC 33.7 RDW 14.4 Plt Count 227 MPV 8.1 Sodium 144 Potassium 4.1 Chloride 108 H Carbon Dioxide 27 Anion Gap 9 BUN 14 Creatinine 0.9 D Creat Clearance w eGFR > 60 Random Glucose 82 D Calcium 8.4 L Total Bilirubin 0.8 AST 23 D ALT 26 D Alkaline Phosphatase 72 Total Protein 5.8 L D Albumin 3.1 L D Urine Color Urine Appearance Urine pH Ur Specific [place] Urine Protein Urine Glucose (UA) Urine Ketones Urine Blood Urine Nitrite Urine Bilirubin Urine Urobilinogen Ur Leukocyte Esterase RPR Titer Nonreactive 02/22/17 13:42 WBC RBC Hgb Hct MCV MCH MCHC RDW Plt Count MPV Sodium Potassium Chloride Carbon Dioxide Anion Gap BUN Creatinine Creat Clearance w eGFR Random Glucose Calcium Total Bilirubin AST ALT Alkaline Phosphatase Total Protein Albumin Urine Color Ltyellow Urine Appearance Clear Urine pH 7.0 D Ur Specific [place] 1.020 Urine Protein Negative Urine Glucose (UA) Negative Urine Ketones Negative Urine Blood Negative Urine Nitrite Negative Urine Bilirubin Negative Urine Urobilinogen Negative Ur Leukocyte Esterase Negative RPR Titer Labs noted - Treatment Hospital Course: Detox Protocol Followed, Detoxed Safely, Responded well, Discharged Condition Good - Medication Discharge Medications: Ambulatory Orders NK [No Known Home Medication] 02/21/17 - Diagnosis (1) Alcohol dependence with uncomplicated withdrawal Status: Acute (2) Cocaine dependence, uncomplicated Status: Chronic (3) Nicotine dependence Status: Chronic Qualifiers: Nicotine product type: cigarettes Substance use status: in withdrawal Qualified Code(s): F17.213 - Nicotine dependence, cigarettes, with withdrawal; F17.213 - Nicotine dependence, cigarettes, with withdrawal - AMA Did Patient Leave Against Medical Advice: No (Follow up with your PCP in 1-2 weeks)
== END 2017-02-25 09:50 | disposition home or self-care (01) | DRG 774 ==
LOC: YASAS 12:50 → Y3N 18:02
PROVIDERS: ADMIT Internal Medicine; ATTEND Internal Medicine
PROC: HZ2ZZZZ Detoxification Services for Substance Abuse Treatment (ICD-10-PCS; principal; 2017-02-21)
DX: F10.230 Alcohol dependence with withdrawal, uncomplicated (principal); F14.20 Cocaine dependence, uncomplicated; F14.288 Cocaine dependence with other cocaine-induced disorder; F17.213 Nicotine dependence, cigarettes, with withdrawal; I95.9 Hypotension, unspecified; Z79.82 Long term (current) use of aspirin
CPT/HCPCS: 36415; 80053; 81003; 85027; 86593; 93005; 93010

== ENCOUNTER 2017-04-11 12:01 | Inpatient (IN) | payer OTHER ==
[2017-04-11] MEDS ORDERED: ACETAMINOPHEN 325 MG TABLET (FP) PO PRN (16:59)
[2017-04-11] MEDS ORDERED: MAGNESIUM HYDROX 2400MG/30ML ORAL SUSPENSION 30 ML CUP PO PRN (16:59)
[2017-04-11] MEDS ORDERED: chlordiazePOXIDE HCL 25 MG CAPSULE PO PRN (16:59)
[2017-04-11] MEDS ORDERED: guaiFENesin/D-METHORPHAN HB 10 ML UNIT-DOSE CUPS PO PRN (16:59)
[2017-04-11] MEDS ORDERED: MAGNESIUM CITRATE 300 ML BOTTLE PO PRN (16:59)
[2017-04-11] MEDS ORDERED: P-EPHED 60MG/TRIPROLIDI 2.5MG TABLET PO PRN (16:59)
[2017-04-11] MEDS ORDERED: IBUPROFEN 400 MG TABLET (FP) PO PRN (16:59)
[2017-04-11] MEDS ORDERED: MAG HYDROX/AL HYDROX/SIMETH 30 ML UNIT-DOSE CUP PO PRN (16:59)
[2017-04-11] MEDS ORDERED: NICOTINE POLACRILEX 4 MG GUM BC PRN (16:59)
[2017-04-11] MEDS ORDERED: MENTHOL/PHENOL 1 EACH UD MM PRN (16:59)
[2017-04-11] MEDS ORDERED: LOPERAMIDE HCL 2 MG CAPSULE PO PRN (16:59)
[2017-04-11] MEDS: THIAMINE HCL 100 MG TABLET (FP) PO SCH (22:23)
[2017-04-11] MEDS: chlordiazePOXIDE HCL 25 MG CAPSULE PO SCH (22:23)
[2017-04-11 23:45] LABS: URINE APPEARANCE CLEAR; URINE BILIRUBIN NEGATIVE (NEGATIVE); URINE BLOOD NEGATIVE (NEGATIVE); URINE COLOR YELLOW; URINE GLUCOSE (UA) 1+ (NEGATIVE); URINE KETONE NEGATIVE (NEGATIVE); URINE LEUK ESTERASE NEGATIVE (NEGATIVE); URINE NITRITE NEGATIVE (NEGATIVE); URINE PROTEIN NEGATIVE (NEGATIVE); URINE UROBILINOGEN NEGATIVE mg/dL (0.2-1.0)
[2017-04-12] MEDS: chlordiazePOXIDE HCL 25 MG CAPSULE PO SCH ×4 (05:36→22:08)
[2017-04-12 10:08] LABS: MCH 29.3 pg (25.7-33.7); MCHC 33.7 g/dl (32.0-35.9); MEAN CELL VOLUME 87.1 fl (80-96); MEAN PLT VOLUME 7.9 fl (7.5-11.1); PLATELET COUNT 214 K/MM3 (134-434); RDW 14.7 % (11.9-15.9); WHITE BLOOD COUNT 3.9 K/mm3 (4.0-10.0)
[2017-04-12 10:18] LABS: ALBUMIN 3.1 g/dl (3.4-5.0); ALK PHOS 61 U/L (45-117); ANION GAP 3 (8-16); BILIRUBIN,TOTAL 0.6 mg/dL (0.2-1.0); CALCIUM 8.5 mg/dL (8.5-10.1); CO2 31 mmol/L (21-32); CREATININE 0.9 mg/dL (0.7-1.3); GLUCOSE,RANDOM 91 mg/dL (74-106); SGOT/AST 20 U/L (15-37); SGPT/ALT 21 U/L (12-78); TOT PROT 5.9 g/dl (6.4-8.2)
[2017-04-12] MEDS: PRENATAL VITAMINS W/ FOLIC ACID TABLET (FP) PO SCH (11:15)
[2017-04-12] MEDS: NICOTINE 21 MG/24 HOURS TOPICAL PATCH TD SCH (11:16)
--- NOTE | 2017-04-12 11:45 | EKG ---
Test Reason : Blood Pressure : / mmHG Vent. Rate : 063 BPM Atrial Rate : 063 BPM P-R Int : 172 ms QRS Dur : 112 ms QT Int : 398 ms P-R-T Axes : 075 -31 -14 degrees QTc Int : 407 ms NORMAL SINUS RHYTHM LEFT AXIS DEVIATION INCOMPLETE RIGHT BUNDLE BRANCH BLOCK SEPTAL INFARCT (CITED ON OR BEFORE 11-APR-2017) ABNORMAL ECG WHEN COMPARED WITH ECG OF 23-FEB-2017 11:32, QUESTIONABLE CHANGE IN INITIAL FORCES OF SEPTAL LEADS Confirmed by DEMETRIS YAÑEZ MD ([id number]) on 04/12/2017 11:45:06 AM Referred By: Confirmed By:DEMETRIS YAÑEZ MD
[2017-04-12 15:18] LABS: URINE LEUK ESTERASE Negative (NEGATIVE)
--- NOTE | 2017-04-12 15:45 | PN ---
S CIWA - CIWA Score Nausea/Vomitin-No Nausea/No Vomiting Muscle Tremors: 4-Moderate,w/Arms Extend Anxiety: 3 Agitation: 2 Paroxysmal Sweats: 3 Orientation: 0-Oriented Tacttile Disturbances: 0-None Auditory Disturbances: 0-None Visual Disturbances: 0-None Headache: 1-Very Mild CIWA-Ar Total Score: 13 S Progress Note (SOAP) Subjective: night sweats, anxiety, tremors, tiredness, interrupted sleep Objective: 04/12/17 15:44 Vital Signs (72 hours) 04/11/17 04/12/17 04/12/17 23:02 00:30 03:30 Temperature 98 F Pulse Rate 89 Respiratory 18 18 18 Rate Blood Pressure 110/73 04/12/17 04/12/17 04/12/17 06:00 09:39 13:22 Temperature 97.5 F L 97.7 F 100.2 F H Pulse Rate 62 74 75 Respiratory 18 18 18 Rate Blood Pressure 108/68 98/63 100/66 Laboratory Last Values WBC 3.9 K/mm3 (4.0-10.0) L 04/12/17 07:30 RBC 4.40 M/mm3 (4.00-5.60) 04/12/17 07:30 Hgb 12.9 GM/dL (11.7-16.9) 04/12/17 07:30 Hct 38.3 % (35.4-49) 04/12/17 07:30 MCV 87.1 fl (80-96) 04/12/17 07:30 MCH 29.3 pg (25.7-33.7) 04/12/17 07:30 MCHC 33.7 g/dl (32.0-35.9) 04/12/17 07:30 RDW 14.7 % (11.9-15.9) 04/12/17 07:30 Plt Count 214 K/MM3 (134-434) 04/12/17 07:30 MPV 7.9 fl (7.5-11.1) 04/12/17 07:30 Sodium 143 mmol/L (136-145) 04/12/17 07:30 Potassium 4.2 mmol/L (3.5-5.1) 04/12/17 07:30 Chloride 109 mmol/L (98-107) H 04/12/17 07:30 Carbon Dioxide 31 mmol/L (21-32) 04/12/17 07:30 Anion Gap 3 (8-16) L 04/12/17 07:30 BUN 15 mg/dL (7-18) 04/12/17 07:30 Creatinine 0.9 mg/dL (0.7-1.3) 04/12/17 07:30 Creat Clearance w eGFR > 60 (>60) 04/12/17 07:30 Random Glucose 91 mg/dL (74-106) 04/12/17 07:30 Calcium 8.5 mg/dL (8.5-10.1) 04/12/17 07:30 Total Bilirubin 0.6 mg/dL (0.2-1.0) D 04/12/17 07:30 AST 20 U/L (15-37) 04/12/17 07:30 ALT 21 U/L (12-78) 04/12/17 07:30 Alkaline Phosphatase 61 U/L (45-117) 04/12/17 07:30 Total Protein 5.9 g/dl (6.4-8.2) L 04/12/17 07:30 Albumin 3.1 g/dl (3.4-5.0) L 04/12/17 07:30 Urine Color Yellow 04/11/17 21:35 Urine Appearance Clear 04/11/17 21:35 Urine pH 5.0 (5.0-8.0) D 04/11/17 21:35 Ur Specific [place] 1.020 (1.001-1.035) 04/11/17 21:35 Urine Protein Negative (NEGATIVE) 04/11/17 21:35 Urine Glucose (UA) 1+ (NEGATIVE) H 04/11/17 21:35 Urine Ketones Negative (NEGATIVE) 04/11/17 21:35 Urine Blood Negative (NEGATIVE) 04/11/17 21:35 Urine Nitrite Negative (NEGATIVE) 04/11/17 21:35 Urine Bilirubin Negative (NEGATIVE) 04/11/17 21:35 Urine Urobilinogen Negative mg/dL (0.2-1.0) 04/11/17 21:35 Ur Leukocyte Esterase Negative (NEGATIVE) 04/11/17 21:35 RPR Titer Nonreactive (NONREACTIVE) 04/12/17 07:30 labs reviewed Assessment: 04/12/17 15:46 withdrawal symptoms Plan: Continue detox, fluid hydration
[2017-04-12] MEDS: THIAMINE HCL 100 MG TABLET (FP) PO SCH (22:08)
[2017-04-13] MEDS: chlordiazePOXIDE HCL 25 MG CAPSULE PO SCH ×2 (06:03→11:07)
[2017-04-13 10:17] VITALS: BP 109/68; PULSE 72; TEMP 97.3
[2017-04-13] MEDS: PRENATAL VITAMINS W/ FOLIC ACID TABLET (FP) PO SCH (11:06)
[2017-04-13] MEDS: NICOTINE 21 MG/24 HOURS TOPICAL PATCH TD SCH (11:07)
--- NOTE | 2017-04-13 13:00 | DS ---
[facility] Detox Discharge Summary Admission Date: 04/11/17 Discharge Date: 04/13/17 - History Present History: Alcohol Dependence, Cocaine Dependence Pertinent Past History: Heart disease,not sure what - Physical Exam Results Vital Signs: Vital Signs Temperature 97.3 F L 04/13/17 10:00 Pulse Rate 72 04/13/17 10:00 Respiratory Rate 20 04/13/17 10:00 Blood Pressure 109/68 04/13/17 10:00 O2 Sat by Pulse Oximetry (%) Pertinent Admission Physical Exam Findings: Withdrawal sx. Laboratory Last Values WBC 3.9 K/mm3 (4.0-10.0) L 04/12/17 07:30 RBC 4.40 M/mm3 (4.00-5.60) 04/12/17 07:30 Hgb 12.9 GM/dL (11.7-16.9) 04/12/17 07:30 Hct 38.3 % (35.4-49) 04/12/17 07:30 MCV 87.1 fl (80-96) 04/12/17 07:30 MCH 29.3 pg (25.7-33.7) 04/12/17 07:30 MCHC 33.7 g/dl (32.0-35.9) 04/12/17 07:30 RDW 14.7 % (11.9-15.9) 04/12/17 07:30 Plt Count 214 K/MM3 (134-434) 04/12/17 07:30 MPV 7.9 fl (7.5-11.1) 04/12/17 07:30 Sodium 143 mmol/L (136-145) 04/12/17 07:30 Potassium 4.2 mmol/L (3.5-5.1) 04/12/17 07:30 Chloride 109 mmol/L (98-107) H 04/12/17 07:30 Carbon Dioxide 31 mmol/L (21-32) 04/12/17 07:30 Anion Gap 3 (8-16) L 04/12/17 07:30 BUN 15 mg/dL (7-18) 04/12/17 07:30 Creatinine 0.9 mg/dL (0.7-1.3) 04/12/17 07:30 Creat Clearance w eGFR > 60 (>60) 04/12/17 07:30 Random Glucose 91 mg/dL (74-106) 04/12/17 07:30 Calcium 8.5 mg/dL (8.5-10.1) 04/12/17 07:30 Total Bilirubin 0.6 mg/dL (0.2-1.0) D 04/12/17 07:30 AST 20 U/L (15-37) 04/12/17 07:30 ALT 21 U/L (12-78) 04/12/17 07:30 Alkaline Phosphatase 61 U/L (45-117) 04/12/17 07:30 Total Protein 5.9 g/dl (6.4-8.2) L 04/12/17 07:30 Albumin 3.1 g/dl (3.4-5.0) L 04/12/17 07:30 Urine Color Yellow 04/11/17 21:35 Urine Appearance Clear 04/11/17 21:35 Urine pH 5.0 (5.0-8.0) D 04/11/17 21:35 Ur Specific [place] 1.020 (1.001-1.035) 04/11/17 21:35 Urine Protein Negative (NEGATIVE) 04/11/17 21:35 Urine Glucose (UA) 1+ (NEGATIVE) H 04/11/17 21:35 Urine Ketones Negative (NEGATIVE) 04/11/17 21:35 Urine Blood Negative (NEGATIVE) 04/11/17 21:35 Urine Nitrite Negative (NEGATIVE) 04/11/17 21:35 Urine Bilirubin Negative (NEGATIVE) 04/11/17 21:35 Urine Urobilinogen Negative mg/dL (0.2-1.0) 04/11/17 21:35 Ur Leukocyte Esterase Negative (NEGATIVE) 04/11/17 21:35 RPR Titer Nonreactive (NONREACTIVE) 04/12/17 07:30 labs noted - Treatment Patient has Accepted a Rehab Referral to: Refused pending resolution of legal case - Medication Discharge Medications: Ambulatory Orders NK [No Known Home Medication] 02/21/17 - Diagnosis (1) Alcohol dependence with uncomplicated withdrawal Status: Acute (2) Cocaine dependence, uncomplicated Status: Acute (3) Nicotine dependence Status: Acute Qualifiers: Nicotine product type: cigarettes Substance use status: uncomplicated Qualified Code(s): F17.210 - Nicotine dependence, cigarettes, uncomplicated - AMA Did Patient Leave Against Medical Advice: Yes (pt. does not want to complete detox.)
[2017-04-13] MEDS ORDERED: chlordiazePOXIDE 5 MG CAPSULE PO SCH (23:00)
[2017-04-14] MEDS ORDERED: chlordiazePOXIDE HCL 10 MG CAPSULE PO SCH (23:00)
== END 2017-04-13 12:39 | disposition left against medical advice (07) | DRG 770 ==
LOC: YASAS 12:01 → Y6N 17:35
PROVIDERS: ADMIT Internal Medicine; ATTEND Internal Medicine
PROC: HZ2ZZZZ Detoxification Services for Substance Abuse Treatment (ICD-10-PCS; principal; 2017-04-11)
DX: F10.20 Alcohol dependence, uncomplicated (principal); F14.20 Cocaine dependence, uncomplicated; F17.210 Nicotine dependence, cigarettes, uncomplicated
CPT/HCPCS: 36415; 80053; 81003; 85027; 86593; 93005; 93010

== ENCOUNTER 2017-05-02 08:36 | Inpatient (IN) | payer OTHER ==
[2017-05-02 10:16] VITALS: BMI 22.6
--- NOTE | 2017-05-02 12:14 | HP ---
Admission [facility] - [facility] Chief Complaint: REHAB TX FOR ALCOHOL AND DRUG DEPENDENCE Allergies/Adverse Reactions: Allergies Allergy/AdvReac Type Severity Reaction Status Date / Time No Known Allergies Allergy Verified 05/02/17 10:55 History of Present Illness: 67 Y/O AA/MALE WITH A HX OF COCAINE AND ALCOHOL DEPENDENCE SEEKING REHAB TX. Exam Limitations: No Limitations - Ebola screening Have you traveled outside of the country in the last 21 days: No (N) Have you had contact with anyone from an Ebola affected area: No Have you been sick,other than usual withdrawal symptoms: No Do you have a fever: No - Review of Systems Constitutional: Chills, Night Sweats, Unintentional Wgt. Loss EENT: reports: Blurred Vision (WEARS GLASSES), Tearing, Nose Congestion, Dental Problems Respiratory: reports: No Symptoms reported Cardiac: reports: Chest Pain ("I WAS AT [facility] SOMETIM[facility] LAST WEEK OR SO FOR CHEST PAIN" DUE TO "SMOKING COCAINE"), Lightheadedness GI: reports: Poor Fluid Intake : reports: Frequency Musculoskeletal: reports: No Symptoms Reported Integumentary: reports: No Symptoms Reported Neuro: reports: Headache, Numbness, Tingling, Tremors Endocrine: reports: No Symptoms Reported Hematology: reports: No Symptoms Reported Psychiatric: reports: Orientated x3, Anxious Other Systems: Reviewed and Negative Patient History - Patient Medical History Hx Anemia: No Hx Asthma: No Hx Chronic Obstructive Pulmonary Disease (COPD): No Hx Cancer: No Hx Cardiac Disorders: Yes (was admitted in [facility], 2016 for chest pain) Hx Congestive Heart Failure: No Hx Hypertension: No Hx Hypercholesterolemia: No Hx Pacemaker: No HX Cerebrovascular Accident: No Hx Seizures: No Hx Dementia: No Hx Diabetes: No Hx Gastrointestinal Disorders: No Hx Liver Disease: No Hx Genitourinary Disorders: No Hx Sexually Transmitted Disorders: Yes (gonorrhea at age 22) Hx Renal Disease (ESRD): No Hx Thyroid Disease: No Hx Human Immunodeficiency Virus (HIV): No (NEGATIVE HX 2014) Hx Hepatitis C: No (NEGATIVE HX) Hx Depression: No Hx Suicide Attempt: No (DENIES) Hx Bipolar Disorder: No Hx Schizophrenia: No - Patient Surgical History Past Surgical History: No Hx Neurologic Surgery: No Hx Cataract Extraction: No Hx Cardiac Surgery: No Hx Lung Surgery: No Hx Breast Surgery: No Hx Breast Biopsy: No Hx Abdominal Surgery: No Hx Appendectomy: No Hx Cholecystectomy: No Hx Genitourinary Surgery: No Hx Orthopedic Surgery: No Anesthesia Reaction: No - PPD History Previous Implant?: Yes Documented Results: Negative w/proof Implanted On Prior [facility] Admission?: Yes Date: 05/30/16 Results: 0 mm PPD to be Administered?: No - Reproductive History Patient is a Female of Child Bearing Age (11 -55 yrs old): No (MALE) - Smoking Cessation Smoking history: Current every day smoker Have you smoked in the past 12 months: Yes Aproximately how many cigarettes per day: 40 Cigars Per Day: 0 Hx Chewing Tobacco Use: No Initiated information on smoking cessation: Yes 'Breaking Loose' booklet given: 05/02/17 - Substance & Tx. History Hx Alcohol Use: Yes (BEER) Hx Substance Use: Yes (COCAINE) Substance Use Type: Alcohol, Cocaine Hx Substance Use Treatment: Yes ([facility]) - Substances Abused Crack Route: Smoking Frequency: Daily Amount used: $50 Age of first use: 36 Date of Last Use: 04/24/17 Alcohol-beer Route: Oral Frequency: Daily Amount used: 1-6 pk. Age of first use: 16 Date of Last Use: 04/24/17 Family Disease History - Family Disease History Family Disease History: Diabetes: Mother (), Brother (), Other: Father (no contact) Admission Physical Exam BHS - Vital Signs Vital Signs: Vital Signs - 24 hr 05/02/17 10:12 Temperature 96.4 F L Pulse Rate 68 Respiratory 20 Rate Blood Pressure 109/73 - Physical General Appearance: Yes: No Apparent Distress, Anxious HEENTM: Yes: EOMI, Normocephalic, DAVIS, Pharynx Normal Respiratory: Yes: Chest Non-Tender, Lungs Clear, Normal Breath Sounds, No Respiratory Distress Neck: Yes: No masses,lesions,Nodules, Supple, Trachea in good position Breast: Yes: Breast Exam Deferred Cardiology: Yes: Regular Rhythm, Regular Rate, S1, S2 Abdominal: Yes: Normal Bowel Sounds, Non Tender, Flat Genitourinary: Yes: Other (N/C) Back: Yes: Within Normal Limits Musculoskeletal: Yes: full range of Motion, Gait Steady Extremities: Yes: Normal Range of Motion, Non-Tender 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 intact, Fully Oriented, Alert, Motor Strength 5/5 Integumentary: Yes: Dry, Warm Lymphatic: Yes: Within Normal Limits - Diagnostic (1) Alcohol dependence with uncomplicated withdrawal Current Visit: Yes Status: Chronic (2) Cocaine dependence, uncomplicated Current Visit: Yes Status: Chronic (3) Nicotine dependence Current Visit: Yes Status: Acute Qualifiers: Nicotine product type: cigarettes Substance use status: in withdrawal Qualified Code(s): F17.213 - Nicotine dependence, cigarettes, with withdrawal (4) Weight loss Current Visit: Yes Status: Acute (5) History of chest pain Current Visit: Yes Status: Acute Comment: DUE TO COCAINE SMOKING. Cleared for Admission [facility] - Detox or Rehab Claeared for Rehab Admission: Yes S Breath Alcohol Content Breath Alcohol Content: 0 Urine Drug Screen - Results Drug Screen Negative: No Urine Drug Screen Results: MADHURI-Cocaine, BZO-Benzodiazepines Inpatient Rehab Admission - Initial Determination Are CD services needed?: Yes Free of communicable disease: Yes Not in need of hospitalization: Yes - Rehab Admission Criteria Patient is meeting Inpatient Rehab admission criteria:: Yes
[2017-05-02] MEDS ORDERED: MAG HYDROX/AL HYDROX/SIMETH 30 ML UNIT-DOSE CUP PO PRN (12:34)
[2017-05-02] MEDS ORDERED: MAGNESIUM HYDROX 2400MG/30ML ORAL SUSPENSION 30 ML CUP PO PRN (12:34)
[2017-05-02] MEDS ORDERED: P-EPHED 60MG/TRIPROLIDI 2.5MG TABLET PO PRN (12:34)
[2017-05-02] MEDS ORDERED: ACETAMINOPHEN 325 MG TABLET (FP) PO PRN (12:34)
[2017-05-02] MEDS ORDERED: MENTHOL/PHENOL 1 EACH UD MM PRN (12:34)
[2017-05-02] MEDS ORDERED: MAGNESIUM CITRATE 300 ML BOTTLE PO PRN (12:34)
[2017-05-02] MEDS ORDERED: hydrOXYzine PAMOATE 25 MG CAPSULE (FP) PO PRN (12:34)
[2017-05-02] MEDS ORDERED: IBUPROFEN 400 MG TABLET (FP) PO PRN (12:34)
[2017-05-02] MEDS ORDERED: NICOTINE POLACRILEX 4 MG GUM BUC PRN (12:34)
[2017-05-02] MEDS ORDERED: guaiFENesin/D-METHORPHAN HB 10 ML UNIT-DOSE CUPS PO PRN (12:34)
[2017-05-02] MEDS ORDERED: LOPERAMIDE HCL 2 MG CAPSULE PO PRN (12:34)
[2017-05-02] MEDS: NICOTINE 21 MG/24 HOURS TOPICAL PATCH TD SCH (14:08)
[2017-05-02 17:45] LABS: URINE APPEARANCE CLEAR; URINE BILIRUBIN NEGATIVE (NEGATIVE); URINE BLOOD NEGATIVE (NEGATIVE); URINE COLOR LTYELLOW; URINE GLUCOSE (UA) NEGATIVE (NEGATIVE); URINE KETONE NEGATIVE (NEGATIVE); URINE LEUK ESTERASE NEGATIVE (NEGATIVE); URINE NITRITE NEGATIVE (NEGATIVE); URINE PROTEIN NEGATIVE (NEGATIVE); URINE UROBILINOGEN NEGATIVE mg/dL (0.2-1.0)
[2017-05-02] MEDS: THIAMINE HCL 100 MG TABLET (FP) PO SCH (21:40)
[2017-05-03] MEDS: PRENATAL VITAMINS W/ FOLIC ACID TABLET (FP) PO SCH (10:50)
[2017-05-03] MEDS: NICOTINE 21 MG/24 HOURS TOPICAL PATCH TD SCH (11:00)
--- NOTE | 2017-05-03 13:15 | HP ---
Psychiatrist Admission - Data Date of interview: 05/03/17 Admission source: [facility] Identifying data: This is the first 5N inpatient rehabilitation admission for this 67 year old single AA male , father of one, he is homeless. 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 Psychiatric History: Patient denies history of psychiatric treatment. Physical/Sexual Abuse/Trauma History: Patient denies. Vital Signs: Vital Signs - 24 hr 05/02/17 05/03/17 05/03/17 14:04 00:38 03:29 Temperature Pulse Rate 78 Respiratory 18 18 Rate Blood Pressure 110/70 05/03/17 07:05 Temperature 97.6 F Pulse Rate 57 L Respiratory 18 Rate Blood Pressure 117/74 Allergies/Adverse Reactions: Allergies Allergy/AdvReac Type Severity Reaction Status Date / Time No Known Allergies Allergy Verified 05/02/17 10:55 Date of last physical exam: 05/02/17 Concur with the findings of this exam: Yes - Substance Abuse/Tx History Hx Alcohol Use: Yes Hx Substance Use: Yes Substance Use Type: Alcohol (6 cans daily), Cocaine ($50 daily) Hx Substance Use Treatment: Yes ([facility] Mental Status Exam - Mental Status Exam Alert and Oriented to: Time, Place, Person Cognitive Function: Grossly Intact Patient Appearance: Well Groomed Mood: Sad Affect: Appropriate, Constricted Patient Behavior: Appropriate, Cooperative Speech Pattern: Clear, Appropriate Voice Loudness: Normal Thought Process: Intact, Goal Oriented Thought Disorder: Not Present Hallucinations: Denies Suicidal Ideation: Denies Insight/Judgement: Fair Appetite: Weight loss (lost 30 lbs over the year) Muscle strength/Tone: Normal Gait/Station: Normal Psychiatric Findings - Problem List ([place] 1, 2,3) (1) Alcohol dependence Current Visit: Yes Status: Acute (2) Cocaine dependence Current Visit: Yes Status: Acute (3) Nicotine dependence Current Visit: Yes Status: Acute Qualifiers: Nicotine product type: cigarettes Substance use status: in withdrawal Qualified Code(s): F17.213 - Nicotine dependence, cigarettes, with withdrawal - Initial Treatment Plan Initial Treatment Plan: Will monitor progress as needed.
[2017-05-03] MEDS: THIAMINE HCL 100 MG TABLET (FP) PO SCH (21:49)
[2017-05-04] MEDS: NICOTINE 21 MG/24 HOURS TOPICAL PATCH TD SCH (10:17)
[2017-05-04] MEDS: PRENATAL VITAMINS W/ FOLIC ACID TABLET (FP) PO SCH (10:17)
[2017-05-04] MEDS: THIAMINE HCL 100 MG TABLET (FP) PO SCH (21:33)
[2017-05-05] MEDS: PRENATAL VITAMINS W/ FOLIC ACID TABLET (FP) PO SCH (10:24)
[2017-05-05] MEDS: NICOTINE 21 MG/24 HOURS TOPICAL PATCH TD SCH (10:24)
[2017-05-05] MEDS: THIAMINE HCL 100 MG TABLET (FP) PO SCH (21:39)
[2017-05-06] MEDS: NICOTINE 21 MG/24 HOURS TOPICAL PATCH TD SCH (10:03)
[2017-05-06] MEDS: PRENATAL VITAMINS W/ FOLIC ACID TABLET (FP) PO SCH (10:03)
[2017-05-06] MEDS: THIAMINE HCL 100 MG TABLET (FP) PO SCH (21:50)
[2017-05-07] MEDS: NICOTINE 21 MG/24 HOURS TOPICAL PATCH TD SCH (10:13)
[2017-05-07] MEDS: PRENATAL VITAMINS W/ FOLIC ACID TABLET (FP) PO SCH (10:13)
[2017-05-07] MEDS: THIAMINE HCL 100 MG TABLET (FP) PO SCH (21:39)
[2017-05-08] MEDS: NICOTINE 21 MG/24 HOURS TOPICAL PATCH TD SCH (10:20)
[2017-05-08] MEDS: PRENATAL VITAMINS W/ FOLIC ACID TABLET (FP) PO SCH (10:20)
[2017-05-08] MEDS: THIAMINE HCL 100 MG TABLET (FP) PO SCH (21:49)
[2017-05-09] MEDS: NICOTINE 21 MG/24 HOURS TOPICAL PATCH TD SCH (10:05)
[2017-05-09] MEDS: PRENATAL VITAMINS W/ FOLIC ACID TABLET (FP) PO SCH (10:05)
[2017-05-09] MEDS: THIAMINE HCL 100 MG TABLET (FP) PO SCH (21:45)
[2017-05-10] MEDS: NICOTINE 21 MG/24 HOURS TOPICAL PATCH TD SCH (10:04)
[2017-05-10] MEDS: PRENATAL VITAMINS W/ FOLIC ACID TABLET (FP) PO SCH (10:04)
[2017-05-11] MEDS: NICOTINE 21 MG/24 HOURS TOPICAL PATCH TD SCH (10:20)
[2017-05-11] MEDS: PRENATAL VITAMINS W/ FOLIC ACID TABLET (FP) PO SCH (10:20)
[2017-05-12] MEDS: PRENATAL VITAMINS W/ FOLIC ACID TABLET (FP) PO SCH (11:03)
[2017-05-12] MEDS: NICOTINE 21 MG/24 HOURS TOPICAL PATCH TD SCH (11:03)
[2017-05-13] MEDS: NICOTINE 21 MG/24 HOURS TOPICAL PATCH TD SCH (10:40)
[2017-05-13] MEDS: PRENATAL VITAMINS W/ FOLIC ACID TABLET (FP) PO SCH (10:40)
[2017-05-14] MEDS: NICOTINE 21 MG/24 HOURS TOPICAL PATCH TD SCH (10:11)
[2017-05-14] MEDS: PRENATAL VITAMINS W/ FOLIC ACID TABLET (FP) PO SCH (10:11)
[2017-05-15] MEDS: PRENATAL VITAMINS W/ FOLIC ACID TABLET (FP) PO SCH (10:13)
[2017-05-15] MEDS: NICOTINE 21 MG/24 HOURS TOPICAL PATCH TD SCH (10:13)
[2017-05-16] MEDS: PRENATAL VITAMINS W/ FOLIC ACID TABLET (FP) PO SCH (10:11)
[2017-05-16] MEDS: NICOTINE 21 MG/24 HOURS TOPICAL PATCH TD SCH (10:11)
[2017-05-17] MEDS: PRENATAL VITAMINS W/ FOLIC ACID TABLET (FP) PO SCH (10:59)
[2017-05-17] MEDS: NICOTINE 21 MG/24 HOURS TOPICAL PATCH TD SCH (10:59)
[2017-05-18] MEDS: NICOTINE 21 MG/24 HOURS TOPICAL PATCH TD SCH (10:32)
[2017-05-18] MEDS: PRENATAL VITAMINS W/ FOLIC ACID TABLET (FP) PO SCH (10:32)
[2017-05-19] MEDS: NICOTINE 21 MG/24 HOURS TOPICAL PATCH TD SCH (09:24)
[2017-05-19] MEDS: PRENATAL VITAMINS W/ FOLIC ACID TABLET (FP) PO SCH (09:24)
[2017-05-20] MEDS: NICOTINE 21 MG/24 HOURS TOPICAL PATCH TD SCH (09:11)
[2017-05-20] MEDS: PRENATAL VITAMINS W/ FOLIC ACID TABLET (FP) PO SCH (09:11)
[2017-05-21] MEDS: NICOTINE 21 MG/24 HOURS TOPICAL PATCH TD SCH (10:42)
[2017-05-21] MEDS: PRENATAL VITAMINS W/ FOLIC ACID TABLET (FP) PO SCH (10:43)
[2017-05-22] MEDS: NICOTINE 21 MG/24 HOURS TOPICAL PATCH TD SCH (11:00)
[2017-05-22] MEDS: PRENATAL VITAMINS W/ FOLIC ACID TABLET (FP) PO SCH (11:00)
[2017-05-23] MEDS: NICOTINE 21 MG/24 HOURS TOPICAL PATCH TD SCH (10:27)
[2017-05-23] MEDS: PRENATAL VITAMINS W/ FOLIC ACID TABLET (FP) PO SCH (10:28)
[2017-05-24] MEDS: NICOTINE 21 MG/24 HOURS TOPICAL PATCH TD SCH (10:31)
[2017-05-24] MEDS: PRENATAL VITAMINS W/ FOLIC ACID TABLET (FP) PO SCH (10:31)
[2017-05-25] MEDS: PRENATAL VITAMINS W/ FOLIC ACID TABLET (FP) PO SCH (10:33)
[2017-05-25] MEDS: NICOTINE 21 MG/24 HOURS TOPICAL PATCH TD SCH (10:33)
[2017-05-26] MEDS: NICOTINE 21 MG/24 HOURS TOPICAL PATCH TD SCH (10:46)
[2017-05-26] MEDS: PRENATAL VITAMINS W/ FOLIC ACID TABLET (FP) PO SCH (10:46)
[2017-05-27] MEDS: NICOTINE 21 MG/24 HOURS TOPICAL PATCH TD SCH (10:32)
[2017-05-27] MEDS: PRENATAL VITAMINS W/ FOLIC ACID TABLET (FP) PO SCH (10:32)
[2017-05-28] MEDS: PRENATAL VITAMINS W/ FOLIC ACID TABLET (FP) PO SCH (10:34)
[2017-05-28] MEDS: NICOTINE 21 MG/24 HOURS TOPICAL PATCH TD SCH (10:34)
[2017-05-29 07:10] VITALS: PULSE 76
[2017-05-29] MEDS: PRENATAL VITAMINS W/ FOLIC ACID TABLET (FP) PO SCH (10:22)
[2017-05-29] MEDS: NICOTINE 21 MG/24 HOURS TOPICAL PATCH TD SCH (10:22)
[2017-05-30 07:01] VITALS: BP 113/75; TEMP 97.5
--- NOTE | 2017-05-30 10:05 | PN ---
Psychiatric Progress Note Vital Signs: Vital Signs Period Temp Pulse Resp BP Sys/Mon Pulse Ox Last 24 Hr 97.5 F 76 16-18 113/75 Date of Session: 05/30/17 Chief Complaint:: discharge visit HPI: Patient has addressed alcohol, cocaine and nicotine dependence. Current Medications: Active Medications Generic Name Dose Route Start Last Admin Trade Name Freq PRN Reason Stop Dose Admin Acetaminophen 650 mg 05/02/17 12:34 Tylenol - PO Q4H PRN PAIN Al Hydroxide/Mg Hydroxide 30 ml 05/02/17 12:34 Mylanta Oral Suspension - PO Q6H PRN DYSPEPSIA Eucalyptus/Menthol/Phenol/Sorbitol 1 each 05/02/17 12:34 Cepastat Lozenge - MM Q4H PRN SORE THROAT Guaifenesin 10 ml 05/02/17 12:34 Robitussin Dm - PO Q6H PRN COUGH Hydroxyzine Pamoate 25 mg 05/02/17 12:34 Vistaril - PO Q4H PRN AGITATION Ibuprofen 400 mg 05/02/17 12:34 Motrin - PO Q6H PRN SEVERE PAIN Loperamide HCl 4 mg 05/02/17 12:34 Imodium - PO Q6H PRN DIARRHEA Magnesium Citrate 300 ml 05/02/17 12:34 Citroma - PO Q48H PRN CONSTIPATION Magnesium Hydroxide 30 ml 05/02/17 12:34 Milk Of Magnesia - PO DAILY PRN CONSTIPATION Nicotine 21 mg 05/02/17 12:45 05/29/17 10:22 Nicoderm Patch - TD Not Given DAILY MIGUEL Nicotine Polacrilex 4 mg 05/02/17 12:34 Nicorette Gum - BUC Q2H PRN NICOTINE REPLACEMENT RX Multivit/Folic Acid/Iron 1 tab 05/03/17 10:00 05/29/17 10:22 Vitamins (Sjr) - PO Not Given DAILY MIGUEL Pseudoephedrine/Triprolidine 1 combo 05/02/17 12:34 Actifed - PO TID PRN NASAL CONGESTION Current Side Effect: No Lab tests ordered: No Lab tests reviewed: Yes Provider note:: Patient has completed today this program and has met his treatment goals and will continue to address his issues at [facility] program. Patient focuses on insight he gained in this treatment and identified behaviors which contribute to his relapse. Coping skills, support utilizations discussed with the patient, he was encouraged to utilize all supports to prevent relapses. Patient is stable for discharge today. Total face to face time:: 35 Mental Status Exam - Mental Status Exam Alert and Oriented to: Time, Place, Person Cognitive Function: Good Patient Appearance: Well Groomed Mood: Hopeful Affect: Appropriate, Mood Congruent Patient Behavior: Appropriate, Cooperative Speech Pattern: Clear, Appropriate Voice Loudness: Normal Thought Process: Intact, Goal Oriented Thought Disorder: Not Present Hallucinations: Denies Suicidal Ideation: Denies Homicidal Ideation: Denies Insight/Judgement: Fair Sleep: Fair Appetite: Fair Muscle strength/Tone: Normal Gait/Station: Normal Psychiatric Treatment Plan - Problem List (1) Alcohol dependence Current Visit: Yes (2) Cocaine dependence Current Visit: Yes (3) Nicotine dependence Current Visit: Yes Qualifiers: Nicotine product type: cigarettes Substance use status: in withdrawal Qualified Code(s): F17.213 - Nicotine dependence, cigarettes, with withdrawal
[2017-05-30] MEDS: NICOTINE 21 MG/24 HOURS TOPICAL PATCH TD SCH (10:24)
[2017-05-30] MEDS: PRENATAL VITAMINS W/ FOLIC ACID TABLET (FP) PO SCH (10:24)
== END 2017-05-30 11:00 | disposition home or self-care (01) | DRG 772 ==
LOC: YASAS 08:36 → Y5N 12:18
PROVIDERS: ADMIT Psychiatry & Neurology Psychiatry; ATTEND Psychiatry & Neurology Psychiatry
PROC: HZ42ZZZ Group Counseling for Substance Abuse Treatment, Cognitive-Behavioral (ICD-10-PCS; principal; 2017-05-02)
DX: F10.20 Alcohol dependence, uncomplicated (principal); F14.20 Cocaine dependence, uncomplicated; F17.213 Nicotine dependence, cigarettes, with withdrawal; Z87.438 Personal history of other diseases of male genital organs; Z87.898 Personal history of other specified conditions
CPT/HCPCS: 81003

== ENCOUNTER 2017-09-21 11:44 | Inpatient (IN) | payer OTHER ==
[2017-09-21 12:15] VITALS: BMI 25.8
--- NOTE | 2017-09-21 13:59 | HP ---
CIWA Score - CIWA Score Nausea/Vomitin-Mild Nausea/No Vomiting Muscle Tremors: 4-Moderate,w/Arms Extend Anxiety: 3 Agitation: 3 Paroxysmal Sweats: 1-Minimal Palms Moist Orientation: 0-Oriented Tacttile Disturbances: 1-Very Mild Itch/Numbness Auditory Disturbances: 0-None Visual Disturbances: 0-None Headache: 2-Mild CIWA-Ar Total Score: 15 Admission ROS BHS - HPI Chief Complaint: alcohol withdrawal sx Allergies/Adverse Reactions: Allergies Allergy/AdvReac Type Severity Reaction Status Date / Time No Known Allergies Allergy Verified 09/21/17 14:02 History of Present Illness: 67 years old male with long history of alcohol nicotine dependence denies medical issue denies psychiatric issue is admitted to detox Exam Limitations: No Limitations - Ebola screening Have you traveled outside of the country in the last 21 days: No (N) Have you had contact with anyone from an Ebola affected area: No Have you been sick,other than usual withdrawal symptoms: No Do you have a fever: No - Review of Systems Constitutional: Chills, Weight Stable EENT: reports: Blurred Vision (eye glasses) Respiratory: reports: SOB with Exertion Cardiac: reports: No Symptoms Reported GI: reports: Nausea, Poor Fluid Intake, Abdominal cramping : reports: No Symptoms Reported Musculoskeletal: reports: No Symptoms Reported Integumentary: reports: No Symptoms Reported Neuro: reports: Tremors Endocrine: reports: No Symptoms Reported Hematology: reports: No Symptoms Reported Psychiatric: reports: Judgement Intact, Mood/Affect Appropiate, Orientated x3 Other Systems: Reviewed and Negative Patient History - Patient Medical History Hx Anemia: No Hx Asthma: No Hx Chronic Obstructive Pulmonary Disease (COPD): No Hx Cancer: No Hx Cardiac Disorders: Yes (was admitted in [facility], 2016 for chest pain) Hx Congestive Heart Failure: No Hx Hypertension: No Hx Hypercholesterolemia: No Hx Pacemaker: No HX Cerebrovascular Accident: No Hx Seizures: No Hx Dementia: No Hx Diabetes: No Hx Gastrointestinal Disorders: No Hx Liver Disease: No Hx Genitourinary Disorders: No Hx Sexually Transmitted Disorders: Yes (gonorrhea at age 22) Hx Renal Disease (ESRD): No Hx Thyroid Disease: No Hx Human Immunodeficiency Virus (HIV): No (NEGATIVE HX 2014) Hx Hepatitis C: No (NEGATIVE HX) Hx Depression: Yes Hx Suicide Attempt: No (DENIES) Hx Bipolar Disorder: No Hx Schizophrenia: No - Patient Surgical History Past Surgical History: No Hx Neurologic Surgery: No Hx Cataract Extraction: No Hx Cardiac Surgery: No Hx Lung Surgery: No Hx Breast Surgery: No Hx Breast Biopsy: No Hx Abdominal Surgery: No Hx Appendectomy: No Hx Cholecystectomy: No Hx Genitourinary Surgery: No Hx Orthopedic Surgery: No - PPD History Previous Implant?: Yes Documented Results: Negative w/proof Implanted On Prior [facility] Admission?: Yes Date: 08/08/17 Results: 0 mm PPD to be Administered?: No - Smoking Cessation Smoking history: Current every day smoker Have you smoked in the past 12 months: Yes Aproximately how many cigarettes per day: 40 Cigars Per Day: 0 Hx Chewing Tobacco Use: No Initiated information on smoking cessation: Yes 'Breaking Loose' booklet given: 09/21/17 - Substance & Tx. History Hx Alcohol Use: Yes Hx Substance Use: Yes Substance Use Type: Alcohol, Cocaine Hx Substance Use Treatment: Yes (08/2017 [facility] Family Disease History - Family Disease History Family Disease History: Diabetes: Mother (), Brother (), Other: Father (no contact) Admission Physical Exam S - Vital Signs Vital Signs: Vital Signs - 24 hr 09/21/17 12:09 Temperature 97.0 F L Pulse Rate 80 Respiratory 18 Rate Blood Pressure 91/69 - Physical General Appearance: Yes: Nourished, Appropriately Dressed, Mild Distress, Tremorous, Irritable, Sweating, Anxious HEENTM: Yes: Hearing grossly Normal, Normocephalic, Normal Voice Respiratory: Yes: Chest Non-Tender, Lungs Clear, Normal Breath Sounds, No Respiratory Distress, No Accessory Muscle Use Neck: Yes: Supple, Trachea in good position Breast: Yes: Breasts Symetrical, No Discharge Cardiology: Yes: Regular Rhythm, S1, S2, Tachycardia Abdominal: Yes: Normal Bowel Sounds, Non Tender, Flat Genitourinary: Yes: Within Normal Limits Back: Yes: Normal Inspection Musculoskeletal: Yes: full range of Motion, Gait Steady Extremities: Yes: Normal Inspection, Normal Range of Motion, Non-Tender, Tremors , Other 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: Yes: Fully Oriented, Motor Strength 5/5, Normal Mood/Affect, Normal Response Integumentary: Yes: Warm Lymphatic: Yes: Within Normal Limits - Diagnostic (1) Nicotine dependence Current Visit: Yes Status: Acute Qualifiers: Nicotine product type: cigarettes Substance use status: in withdrawal Qualified Code(s): F17.213 - Nicotine dependence, cigarettes, with withdrawal (2) Alcohol dependence with uncomplicated withdrawal Current Visit: Yes Status: Acute Cleared for Admission S - Detox or Rehab [facility] Level of Care: Medically Managed Detox Regimen/Protocol: Librium BHS Breath Alcohol Content Breath Alcohol Content: 0 Urine Drug Screen - Results Drug Screen Negative: No Urine Drug Screen Results: MADHURI-Cocaine
[2017-09-21] MEDS ORDERED: ACETAMINOPHEN 325 MG TABLET (FP) PO PRN (14:06)
[2017-09-21] MEDS ORDERED: NICOTINE 21 MG/24 HOURS TOPICAL PATCH TD PRN (14:06)
[2017-09-21] MEDS ORDERED: chlordiazePOXIDE HCL 25 MG CAPSULE PO PRN (14:06)
[2017-09-21] MEDS ORDERED: MAGNESIUM CITRATE 300 ML BOTTLE PO PRN (14:06)
[2017-09-21] MEDS ORDERED: NICOTINE POLACRILEX 4 MG GUM BUC PRN (14:06)
[2017-09-21] MEDS ORDERED: IBUPROFEN 400 MG TABLET (FP) PO PRN (14:06)
[2017-09-21] MEDS ORDERED: MAG HYDROX/AL HYDROX/SIMETH 30 ML UNIT-DOSE CUP PO PRN (14:06)
[2017-09-21] MEDS ORDERED: MENTHOL/PHENOL 1 EACH UD MM PRN (14:06)
[2017-09-21] MEDS ORDERED: MAGNESIUM HYDROX 2400MG/30ML ORAL SUSPENSION 30 ML CUP PO PRN (14:06)
[2017-09-21] MEDS ORDERED: LOPERAMIDE HCL 2 MG CAPSULE PO PRN (14:06)
[2017-09-21] MEDS ORDERED: P-EPHED 60MG/TRIPROLIDI 2.5MG TABLET PO PRN (14:06)
[2017-09-21] MEDS ORDERED: guaiFENesin/D-METHORPHAN HB 10 ML UNIT-DOSE CUPS PO PRN (14:06)
[2017-09-21 19:40] LABS: URINE APPEARANCE CLOUDY; URINE BILIRUBIN NEGATIVE (<2.0 mg/dL); URINE COLOR AMBER; URINE GLUCOSE (UA) NEGATIVE (NEGATIVE); URINE KETONE NEGATIVE (NEGATIVE); URINE LEUK ESTERASE NEGATIVE (NEGATIVE); URINE NITRITE NEGATIVE (NEGATIVE); URINE PROTEIN NEGATIVE (NEGATIVE)
[2017-09-21 20:05] LABS: EPI CELLS RARE /HPF (FEW); URINE BACTERIA RARE /hpf (NONE SEEN); URINE MUCUS FEW
[2017-09-21] MEDS ORDERED: MELATONIN 5 MG TABLETS PO PRN (22:00)
[2017-09-21] MEDS: THIAMINE HCL 100 MG TABLET (FP) PO SCH (22:07)
[2017-09-21] MEDS: chlordiazePOXIDE HCL 25 MG CAPSULE PO SCH (22:07)
[2017-09-22] MEDS: chlordiazePOXIDE HCL 25 MG CAPSULE PO SCH ×4 (06:55→22:01)
[2017-09-22] MEDS: PRENATAL VITAMINS W/ FOLIC ACID TABLET (FP) PO SCH (10:11)
[2017-09-22 10:41] LABS: HEMATOCRIT 36.9 % (35.4-49); HEMOGLOBIN 12.7 GM/dL (11.7-16.9); MCH 28.5 pg (25.7-33.7); MCHC 34.4 g/dl (32.0-35.9); MEAN CELL VOLUME 82.7 fl (80-96); MEAN PLT VOLUME 7.9 fl (7.5-11.1); PLATELET COUNT 203 K/MM3 (134-434); RBC 4.46 M/mm3 (4.00-5.60); RDW 15.1 % (11.9-15.9); WHITE BLOOD COUNT 4.2 K/mm3 (4.0-10.0)
[2017-09-22 10:56] LABS: CHLORIDE 107 mmol/L (98-107); POTASSIUM 4.3 mmol/L (3.5-5.1); SODIUM 143 mmol/L (136-145)
[2017-09-22 11:26] LABS: ALBUMIN 3.3 g/dl (3.4-5.0); ALK PHOS 91 U/L (45-117); ANION GAP 7 (8-16); BILIRUBIN,TOTAL 0.4 mg/dL (0.2-1.0); BLOOD UREA NITROGEN 14 mg/dL (7-18); CALCIUM 8.4 mg/dL (8.5-10.1); CO2 29 mmol/L (21-32); GLUCOSE,RANDOM 99 mg/dL (74-106); SGOT/AST 24 U/L (15-37); SGPT/ALT 27 U/L (12-78); TOT PROT 6.7 g/dl (6.4-8.2)
--- NOTE | 2017-09-22 16:17 | PN ---
[facility] CIWA - CIWA Score Nausea/Vomitin-No Nausea/No Vomiting Muscle Tremors: 2 Anxiety: 4-Mod. Anxious/Guarded Agitation: 3 Paroxysmal Sweats: 2 Orientation: 0-Oriented Tacttile Disturbances: 2-Mild Itch/Numbness/Burn Auditory Disturbances: 0-None Visual Disturbances: 2-Mild Sensitivity Headache: 0-None Present CIWA-Ar Total Score: 15 S Progress Note (SOAP) Subjective: Fatigue, Sweating, Tremors, Anxious. Objective: PATIENT A & O X 3, OBSERVED AMBULATING ON UNIT. NO ACUTE DISTRESS. 09/22/17 16:15 Vital Signs Temperature 96.8 F L 09/22/17 13:05 Pulse Rate 77 09/22/17 13:05 Respiratory Rate 18 09/22/17 13:05 Blood Pressure 97/67 09/22/17 13:05 O2 Sat by Pulse Oximetry (%) Laboratory Tests 09/21/17 09/22/17 09/22/17 18:00 07:50 07:50 WBC 4.2 RBC 4.46 Hgb 12.7 Hct 36.9 MCV 82.7 MCH 28.5 MCHC 34.4 RDW 15.1 Plt Count 203 MPV 7.9 Sodium 143 Potassium 4.3 Chloride 107 Carbon Dioxide 29 Anion Gap 7 L BUN 14 Creatinine 1.0 Creat Clearance w eGFR > 60 Random Glucose 99 Calcium 8.4 L Total Bilirubin 0.4 D AST 24 ALT 27 D Alkaline Phosphatase 91 Total Protein 6.7 Albumin 3.3 L Urine Color Sherine Urine Appearance Cloudy Urine pH 5.0 Ur Specific [place] 1.025 Urine Protein Negative Urine Glucose (UA) Negative Urine Ketones Negative Urine Blood 1+ H Urine Nitrite Negative Urine Bilirubin Negative Urine Urobilinogen 2.0 Ur Leukocyte Esterase Negative Urine WBC (Auto) 5 Urine RBC (Auto) <1 Ur Epithelial Cells Rare Urine Bacteria Rare Urine Mucus Few RPR Titer 09/22/17 07:50 WBC RBC Hgb Hct MCV MCH MCHC RDW Plt Count MPV Sodium Potassium Chloride Carbon Dioxide Anion Gap BUN Creatinine Creat Clearance w eGFR Random Glucose Calcium Total Bilirubin AST ALT Alkaline Phosphatase Total Protein Albumin Urine Color Urine Appearance Urine pH Ur Specific [place] Urine Protein Urine Glucose (UA) Urine Ketones Urine Blood Urine Nitrite Urine Bilirubin Urine Urobilinogen Ur Leukocyte Esterase Urine WBC (Auto) Urine RBC (Auto) Ur Epithelial Cells Urine Bacteria Urine Mucus RPR Titer Nonreactive LABS NOTED. Assessment: 09/22/17 16:16 WITHDRAWAL SYMPTOMS. Plan: CONTINUE DETOX. INCREASE DAILY PO FLUID INTAKE.
[2017-09-22] MEDS: THIAMINE HCL 100 MG TABLET (FP) PO SCH (22:01)
[2017-09-23] MEDS: chlordiazePOXIDE HCL 25 MG CAPSULE PO SCH ×3 (05:45→17:22)
[2017-09-23] MEDS: PRENATAL VITAMINS W/ FOLIC ACID TABLET (FP) PO SCH (10:03)
--- NOTE | 2017-09-23 11:45 | PN ---
S CIWA - CIWA Score Nausea/Vomitin Muscle Tremors: 4-Moderate,w/Arms Extend Anxiety: 3 Agitation: 3 Paroxysmal Sweats: 3 Orientation: 0-Oriented Tacttile Disturbances: 1-Very Mild Itch/Numbness Auditory Disturbances: 0-None Visual Disturbances: 0-None Headache: 2-Mild CIWA-Ar Total Score: 18 BHS Progress Note (SOAP) Subjective: Sweating, anxious, interrupted sleep Objective: 09/23/17 11:43 Last Vital Signs Temp Pulse Resp BP Pulse Ox 97.7 F 76 18 106/69 09/23/17 09:20 09/23/17 09:20 09/23/17 09:20 09/23/17 09:20 Laboratory Tests 09/21/17 09/22/17 09/22/17 18:00 07:50 07:50 WBC 4.2 RBC 4.46 Hgb 12.7 Hct 36.9 MCV 82.7 MCH 28.5 MCHC 34.4 RDW 15.1 Plt Count 203 MPV 7.9 Sodium 143 Potassium 4.3 Chloride 107 Carbon Dioxide 29 Anion Gap 7 L BUN 14 Creatinine 1.0 Creat Clearance w eGFR > 60 Random Glucose 99 Calcium 8.4 L Total Bilirubin 0.4 D AST 24 ALT 27 D Alkaline Phosphatase 91 Total Protein 6.7 Albumin 3.3 L Urine Color Sherine Urine Appearance Cloudy Urine pH 5.0 Ur Specific [place] 1.025 Urine Protein Negative Urine Glucose (UA) Negative Urine Ketones Negative Urine Blood 1+ H Urine Nitrite Negative Urine Bilirubin Negative Urine Urobilinogen 2.0 Ur Leukocyte Esterase Negative Urine WBC (Auto) 5 Urine RBC (Auto) <1 Ur Epithelial Cells Rare Urine Bacteria Rare Urine Mucus Few RPR Titer 09/22/17 07:50 WBC RBC Hgb Hct MCV MCH MCHC RDW Plt Count MPV Sodium Potassium Chloride Carbon Dioxide Anion Gap BUN Creatinine Creat Clearance w eGFR Random Glucose Calcium Total Bilirubin AST ALT Alkaline Phosphatase Total Protein Albumin Urine Color Urine Appearance Urine pH Ur Specific [place] Urine Protein Urine Glucose (UA) Urine Ketones Urine Blood Urine Nitrite Urine Bilirubin Urine Urobilinogen Ur Leukocyte Esterase Urine WBC (Auto) Urine RBC (Auto) Ur Epithelial Cells Urine Bacteria Urine Mucus RPR Titer Nonreactive Labs reviewed: UA shows 1+ blood Assessment: 09/23/17 11:44 Withdrawal symptoms Noted with microscopic hematuria Plan: Continue detox Microscopic hematuria: encouraged PO hydration (water), repeat UA
[2017-09-23] MEDS: THIAMINE HCL 100 MG TABLET (FP) PO SCH (22:10)
[2017-09-23] MEDS: chlordiazePOXIDE 5 MG CAPSULE PO SCH (22:11)
[2017-09-24] MEDS: chlordiazePOXIDE 5 MG CAPSULE PO SCH ×3 (05:00→17:31)
--- NOTE | 2017-09-24 09:59 | PN ---
BHS Progress Note (SOAP) Subjective: Shakes sweats Objective: 09/24/17 09:57 In bed, A& O x 3 No new complaints offered No acute distress noted Vital Signs Temperature 97.8 F 09/24/17 09:15 Pulse Rate 84 09/24/17 09:15 Respiratory Rate 18 09/24/17 09:15 Blood Pressure 111/71 09/24/17 09:15 O2 Sat by Pulse Oximetry (%) Assessment: 09/24/17 09:58 withdrawal sx Plan: Continue detox continue hydration
[2017-09-24] MEDS: PRENATAL VITAMINS W/ FOLIC ACID TABLET (FP) PO SCH (10:17)
[2017-09-24] MEDS: THIAMINE HCL 100 MG TABLET (FP) PO SCH (22:04)
[2017-09-24] MEDS: chlordiazePOXIDE HCL 10 MG CAPSULE PO SCH (22:04)
--- NOTE | 2017-09-25 00:53 | EKG ---
Test Reason : Blood Pressure : / mmHG Vent. Rate : 079 BPM Atrial Rate : 079 BPM P-R Int : 136 ms QRS Dur : 108 ms QT Int : 406 ms P-R-T Axes : -86 -57 -32 degrees QTc Int : 465 ms UNUSUAL P AXIS, POSSIBLE ECTOPIC ATRIAL RHYTHM LEFT ANTERIOR FASCICULAR BLOCK ABNORMAL ECG WHEN COMPARED WITH ECG OF 07-AUG-2017 09:02, ECTOPIC ATRIAL RHYTHM IS PRESENT Confirmed by MONICA SCOTT, ENE ([id number]) on 09/25/2017 12:53:29 AM Referred By: Confirmed By:ENE ANDERSON MD
[2017-09-25 06:12] VITALS: BP 101/63; PULSE 73; TEMP 97.2
[2017-09-25] MEDS: chlordiazePOXIDE HCL 10 MG CAPSULE PO SCH (06:31)
--- NOTE | 2017-09-25 16:30 | PN ---
BHS Progress Note (SOAP) Subjective: Patient denies current Detox symptoms and reports that he feels well overall. Objective: PATIENT A & O X 3, OBSERVED AMBULATING ON UNIT. NO ACUTE DISTRESS. 09/25/17 16:28 Vital Signs Temperature 97.2 F L 09/25/17 06:12 Pulse Rate 73 09/25/17 06:12 Respiratory Rate 18 09/25/17 06:12 Blood Pressure 101/63 09/25/17 06:12 O2 Sat by Pulse Oximetry (%) Laboratory Tests 09/21/17 09/22/17 09/22/17 18:00 07:50 07:50 WBC 4.2 RBC 4.46 Hgb 12.7 Hct 36.9 MCV 82.7 MCH 28.5 MCHC 34.4 RDW 15.1 Plt Count 203 MPV 7.9 Sodium 143 Potassium 4.3 Chloride 107 Carbon Dioxide 29 Anion Gap 7 L BUN 14 Creatinine 1.0 Creat Clearance w eGFR > 60 Random Glucose 99 Calcium 8.4 L Total Bilirubin 0.4 D AST 24 ALT 27 D Alkaline Phosphatase 91 Total Protein 6.7 Albumin 3.3 L Urine Color Sherine Urine Appearance Cloudy Urine pH 5.0 Ur Specific [place] 1.025 Urine Protein Negative Urine Glucose (UA) Negative Urine Ketones Negative Urine Blood 1+ H Urine Nitrite Negative Urine Bilirubin Negative Urine Urobilinogen 2.0 Ur Leukocyte Esterase Negative Urine WBC (Auto) 5 Urine RBC (Auto) <1 Ur Epithelial Cells Rare Urine Bacteria Rare Urine Mucus Few RPR Titer 09/22/17 07:50 WBC RBC Hgb Hct MCV MCH MCHC RDW Plt Count MPV Sodium Potassium Chloride Carbon Dioxide Anion Gap BUN Creatinine Creat Clearance w eGFR Random Glucose Calcium Total Bilirubin AST ALT Alkaline Phosphatase Total Protein Albumin Urine Color Urine Appearance Urine pH Ur Specific [place] Urine Protein Urine Glucose (UA) Urine Ketones Urine Blood Urine Nitrite Urine Bilirubin Urine Urobilinogen Ur Leukocyte Esterase Urine WBC (Auto) Urine RBC (Auto) Ur Epithelial Cells Urine Bacteria Urine Mucus RPR Titer Nonreactive LABS NOTED. Assessment: 09/25/17 16:29 COMPLETION OF DETOX REGIMEN. Plan: PATIENT SCHEDULED FOR DISCHARGE FROM DETOX UNIT TODAY.
--- NOTE | 2017-09-25 16:34 | DS ---
[facility] Detox Discharge Summary Admission Date: 09/21/17 Discharge Date: 09/25/17 - History Present History: Alcohol Dependence Additional Comments: PATIENT GOING HOME. PATIENT ADVISED TO CONSIDER LOCAL 12- STEP / AA OUTPATIENT SUPPORT GROUPS FOR AFTERCARE. PATIENT WAS DISCHARGED FORM DETOX UNIT IN STABLE MEDICAL CONDITION. Pertinent Past History: Depression, Nicotine Dependence. - Physical Exam Results Vital Signs: Vital Signs Temperature 97.2 F L 09/25/17 06:12 Pulse Rate 73 09/25/17 06:12 Respiratory Rate 18 09/25/17 06:12 Blood Pressure 101/63 09/25/17 06:12 O2 Sat by Pulse Oximetry (%) Pertinent Admission Physical Exam Findings: WITHDRAWAL SYMPTOMS. Laboratory Tests 09/21/17 09/22/17 09/22/17 18:00 07:50 07:50 WBC 4.2 RBC 4.46 Hgb 12.7 Hct 36.9 MCV 82.7 MCH 28.5 MCHC 34.4 RDW 15.1 Plt Count 203 MPV 7.9 Sodium 143 Potassium 4.3 Chloride 107 Carbon Dioxide 29 Anion Gap 7 L BUN 14 Creatinine 1.0 Creat Clearance w eGFR > 60 Random Glucose 99 Calcium 8.4 L Total Bilirubin 0.4 D AST 24 ALT 27 D Alkaline Phosphatase 91 Total Protein 6.7 Albumin 3.3 L Urine Color [place] Urine Appearance Cloudy Urine pH 5.0 Ur Specific [place] 1.025 Urine Protein Negative Urine Glucose (UA) Negative Urine Ketones Negative Urine Blood 1+ H Urine Nitrite Negative Urine Bilirubin Negative Urine Urobilinogen 2.0 Ur Leukocyte Esterase Negative Urine WBC (Auto) 5 Urine RBC (Auto) <1 Ur Epithelial Cells Rare Urine Bacteria Rare Urine Mucus Few RPR Titer 09/22/17 07:50 WBC RBC Hgb Hct MCV MCH MCHC RDW Plt Count MPV Sodium Potassium Chloride Carbon Dioxide Anion Gap BUN Creatinine Creat Clearance w eGFR Random Glucose Calcium Total Bilirubin AST ALT Alkaline Phosphatase Total Protein Albumin Urine Color Urine Appearance Urine pH Ur Specific [place] Urine Protein Urine Glucose (UA) Urine Ketones Urine Blood Urine Nitrite Urine Bilirubin Urine Urobilinogen Ur Leukocyte Esterase Urine WBC (Auto) Urine RBC (Auto) Ur Epithelial Cells Urine Bacteria Urine Mucus RPR Titer Nonreactive LABS NOTED. - Treatment Hospital Course: Detox Protocol Followed, Detoxed Safely, Responded well, Discharged Condition Good Patient has Accepted a Rehab Referral to: PATIENT ADVISED TO CONSIDER LOCAL 12- STEP/AA OUTPATIENT SUPPORT GROUPS. - Medication Discharge Medications: Ambulatory Orders NK [No Known Home Medication] 02/21/17 - Diagnosis (1) Alcohol dependence with uncomplicated withdrawal Status: Acute (2) Nicotine dependence Status: Chronic Qualifiers: Nicotine product type: cigarettes Substance use status: in withdrawal Qualified Code(s): F17.213 - Nicotine dependence, cigarettes, with withdrawal - AMA Did Patient Leave Against Medical Advice: No
== END 2017-09-25 09:10 | disposition home or self-care (01) | DRG 774 ==
LOC: YASAS 11:44 → Y3N 15:04
PROVIDERS: ADMIT Internal Medicine; ATTEND Internal Medicine
PROC: HZ2ZZZZ Detoxification Services for Substance Abuse Treatment (ICD-10-PCS; principal; 2017-09-21)
DX: F10.230 Alcohol dependence with withdrawal, uncomplicated (principal); F14.20 Cocaine dependence, uncomplicated; F17.213 Nicotine dependence, cigarettes, with withdrawal; R31.29 Other microscopic hematuria; Z86.69 Personal history of other diseases of the nervous system and sense organs; Z59.0 Homelessness
CPT/HCPCS: 36415; 80053; 81003; 81015; 85027; 86593; 93005; 93010

== ENCOUNTER 2017-10-04 08:25 | Inpatient (IN) | payer OTHER ==
[2017-10-04 09:23] VITALS: BMI 24.0
--- NOTE | 2017-10-04 12:45 | HP ---
[facility] Rehab Assess/Revision - Admission History Admitted to Rehab from: [facility] Date of Admission to Rehab: 01/04/18 - Vital signs Vital Signs: Vital Signs Period Temp Pulse Resp BP Sys/Mon Pulse Ox Last 24 Hr 97.7 F 93 20 111/69 - Findings Detox History & Physical reviewed: Yes Concur with findings: Yes Comments/Additional Findings: for rehab as protocol Inpatient Rehab Admission - Initial Determination Are CD services needed?: Yes Free of communicable disease: Yes Not in need of hospitalization: Yes - Rehab Admission Criteria Previous failed treatment: Yes Poor recovery environment: Yes Comorbidities: Yes Lacks judgement: No Patient is meeting Inpatient Rehab admission criteria:: Yes
[2017-10-04] MEDS ORDERED: MAGNESIUM CITRATE 300 ML BOTTLE PO PRN (12:47)
[2017-10-04] MEDS ORDERED: ACETAMINOPHEN 325 MG TABLET (FP) PO PRN (12:47)
[2017-10-04] MEDS ORDERED: MAGNESIUM HYDROX 2400MG/30ML ORAL SUSPENSION 30 ML CUP PO PRN (12:47)
[2017-10-04] MEDS ORDERED: IBUPROFEN 400 MG TABLET (FP) PO PRN (12:47)
[2017-10-04] MEDS ORDERED: guaiFENesin/D-METHORPHAN HB 10 ML UNIT-DOSE CUPS PO PRN (12:47)
[2017-10-04] MEDS ORDERED: MENTHOL/PHENOL 1 EACH UD MM PRN (12:47)
[2017-10-04] MEDS ORDERED: LOPERAMIDE HCL 2 MG CAPSULE PO PRN (12:47)
[2017-10-04] MEDS ORDERED: P-EPHED 60MG/TRIPROLIDI 2.5MG TABLET PO PRN (12:47)
[2017-10-04] MEDS ORDERED: hydrOXYzine PAMOATE 50 MG CAPSULE (FP) PO PRN (12:47)
[2017-10-04] MEDS ORDERED: MAG HYDROX/AL HYDROX/SIMETH 30 ML UNIT-DOSE CUP PO PRN (12:47)
[2017-10-04] MEDS: THIAMINE HCL 100 MG TABLET (FP) PO SCH (21:19)
[2017-10-04] MEDS ORDERED: MELATONIN 5 MG TABLETS PO PRN (22:00)
--- NOTE | 2017-10-05 09:53 | HP ---
Psychiatrist Admission - Data Date of interview: 10/05/17 Admission source: 3N Identifying data: This is the second 5N inpatient rehabilitation admission for this 67 year old single AA male , father of one, he is homeless. 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 Psychiatric History: Patient denies history of psychiatric treatment Physical/Sexual Abuse/Trauma History: denies history of abuse Vital Signs: Vital Signs - 24 hr 10/05/17 10/05/17 10/05/17 00:30 03:30 07:00 Temperature 98.0 F Pulse Rate 81 Respiratory 18 18 Rate Blood Pressure 137/65 Allergies/Adverse Reactions: Allergies Allergy/AdvReac Type Severity Reaction Status Date / Time No Known Allergies Allergy Verified 10/04/17 09:36 Date of last physical exam: 10/05/17 Concur with the findings of this exam: Yes - Substance Abuse/Tx History Hx Alcohol Use: Yes Hx Substance Use: Yes Substance Use Type: Alcohol, Cocaine Hx Substance Use Treatment: Yes Mental Status Exam - Mental Status Exam Alert and Oriented to: Time, Place, Person Cognitive Function: Good Patient Appearance: Well Groomed Mood: Hopeful Affect: Appropriate, Mood Congruent Patient Behavior: Appropriate, Cooperative Speech Pattern: Clear, Appropriate Voice Loudness: Normal Thought Process: Intact, Goal Oriented Thought Disorder: Not Present Hallucinations: Denies Suicidal Ideation: Denies Homicidal Ideation: Denies Insight/Judgement: Fair Sleep: Fair Appetite: Fair Muscle strength/Tone: Normal Gait/Station: Normal Psychiatric Findings - Problem List ([place] 1, 2,3) (1) Alcohol dependence Current Visit: Yes Status: Acute (2) Cocaine dependence, uncomplicated Current Visit: No Status: Chronic (3) Nicotine dependence Current Visit: No Status: Chronic Qualifiers: - Initial Treatment Plan Initial Treatment Plan: monitor progress as needed.
[2017-10-05] MEDS: PRENATAL VITAMINS W/ FOLIC ACID TABLET (FP) PO SCH (10:39)
[2017-10-05] MEDS: THIAMINE HCL 100 MG TABLET (FP) PO SCH (21:10)
[2017-10-06] MEDS: PRENATAL VITAMINS W/ FOLIC ACID TABLET (FP) PO SCH (09:51)
[2017-10-06] MEDS: THIAMINE HCL 100 MG TABLET (FP) PO SCH (21:05)
[2017-10-07] MEDS: PRENATAL VITAMINS W/ FOLIC ACID TABLET (FP) PO SCH (09:56)
[2017-10-07] MEDS: THIAMINE HCL 100 MG TABLET (FP) PO SCH (22:03)
--- NOTE | 2017-10-07 22:48 | EKG ---
Test Reason : Blood Pressure : / mmHG Vent. Rate : 082 BPM Atrial Rate : 082 BPM P-R Int : 158 ms QRS Dur : 108 ms QT Int : 384 ms P-R-T Axes : 054 -60 022 degrees QTc Int : 448 ms NORMAL SINUS RHYTHM LEFT ANTERIOR FASCICULAR BLOCK ABNORMAL ECG Confirmed by BRITTANI OLIVA MD ([id number]) on 10/07/2017 10:47:58 PM Referred By: Confirmed By:BRITTANI OLIVA MD
[2017-10-08] MEDS: PRENATAL VITAMINS W/ FOLIC ACID TABLET (FP) PO SCH (10:22)
[2017-10-08] MEDS: THIAMINE HCL 100 MG TABLET (FP) PO SCH (21:38)
[2017-10-09] MEDS: PRENATAL VITAMINS W/ FOLIC ACID TABLET (FP) PO SCH (10:06)
[2017-10-09] MEDS: THIAMINE HCL 100 MG TABLET (FP) PO SCH (22:06)
[2017-10-10] MEDS: PRENATAL VITAMINS W/ FOLIC ACID TABLET (FP) PO SCH (10:16)
[2017-10-10] MEDS: THIAMINE HCL 100 MG TABLET (FP) PO SCH (21:09)
[2017-10-11] MEDS: PRENATAL VITAMINS W/ FOLIC ACID TABLET (FP) PO SCH (10:04)
[2017-10-11] MEDS: THIAMINE HCL 100 MG TABLET (FP) PO SCH (21:35)
[2017-10-12] MEDS: PRENATAL VITAMINS W/ FOLIC ACID TABLET (FP) PO SCH (10:39)
[2017-10-12] MEDS: THIAMINE HCL 100 MG TABLET (FP) PO SCH (21:26)
[2017-10-13] MEDS: PRENATAL VITAMINS W/ FOLIC ACID TABLET (FP) PO SCH (11:00)
[2017-10-13] MEDS: THIAMINE HCL 100 MG TABLET (FP) PO SCH (21:15)
[2017-10-14] MEDS: PRENATAL VITAMINS W/ FOLIC ACID TABLET (FP) PO SCH (10:12)
[2017-10-14] MEDS: THIAMINE HCL 100 MG TABLET (FP) PO SCH (21:15)
[2017-10-15] MEDS: PRENATAL VITAMINS W/ FOLIC ACID TABLET (FP) PO SCH (09:49)
[2017-10-15] MEDS: THIAMINE HCL 100 MG TABLET (FP) PO SCH (21:24)
[2017-10-16 06:40] VITALS: BP 107/74; PULSE 77; TEMP 98
[2017-10-16] MEDS: PRENATAL VITAMINS W/ FOLIC ACID TABLET (FP) PO SCH (10:01)
--- NOTE | 2017-10-16 10:34 | PN ---
Psychiatric Progress Note Vital Signs: Vital Signs Period Temp Pulse Resp BP Sys/Mon Pulse Ox Last 24 Hr 98.0 F 77 18-18 107/74 Date of Session: 10/16/17 Chief Complaint:: Discharge Note HPI: Patient addressing Alcohol and Cocaine Dependence comorbid with Nicotine Dependence Current Medications: Active Medications Generic Name Dose Route Start Last Admin Trade Name Freq PRN Reason Stop Dose Admin Acetaminophen 650 mg 10/04/17 12:47 Tylenol - PO Q4H PRN FEVER Al Hydroxide/Mg Hydroxide 30 ml 10/04/17 12:47 Mylanta Oral Suspension - PO Q6H PRN DYSPEPSIA Eucalyptus/Menthol/Phenol/Sorbitol 1 each 10/04/17 12:47 Cepastat Lozenge - MM Q4H PRN SORE THROAT Guaifenesin 10 ml 10/04/17 12:47 Robitussin Dm - PO Q6H PRN COUGH Hydroxyzine Pamoate 50 mg 10/04/17 12:47 Vistaril - PO Q4H PRN AGITATION Ibuprofen 400 mg 10/04/17 12:47 Motrin - PO Q6H PRN Pain Level 4-6 Loperamide HCl 4 mg 10/04/17 12:47 Imodium - PO Q6H PRN DIARRHEA Magnesium Citrate 300 ml 10/04/17 12:47 Citroma - PO Q48H PRN CONSTIPATION Magnesium Hydroxide 30 ml 10/04/17 12:47 Milk Of Magnesia - PO DAILY PRN CONSTIPATION Melatonin 5 mg 10/04/17 22:00 Melatonin PO HS PRN INSOMNIA Multivit/Folic Acid/Iron 1 tab 10/05/17 10:00 10/16/17 10:01 Vitamins ([facility]) - PO Not Given DAILY MIGUEL Pseudoephedrine/Triprolidine 1 combo 10/04/17 12:47 Actifed - PO TID PRN NASAL CONGESTION Thiamine HCl 100 mg 10/04/17 22:00 10/15/17 21:24 Vitamin B1 - PO Not Given HS MIGUEL Current Side Effect: No Lab tests ordered: Yes Lab tests reviewed: Yes Provider note:: Patient has completed this program today. He has met his treatment goals and will continue to address his issues in outpatient program at [facility]. 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.He is stable for discharge today Total face to face time:: 35 Mental Status Exam - Mental Status Exam Alert and Oriented to: Time, Place, Person Cognitive Function: Fair Patient Appearance: Well Groomed Mood: Hopeful, Euthymic Affect: Appropriate Patient Behavior: Cooperative Speech Pattern: Clear Voice Loudness: Normal Thought Process: Intact, Goal Oriented Thought Disorder: Not Present Hallucinations: Denies Suicidal Ideation: Denies Homicidal Ideation: Denies Insight/Judgement: Fair Sleep: Fair Appetite: Good Muscle strength/Tone: Normal Gait/Station: Normal Psychiatric Treatment Plan - Problem List (1) Alcohol dependence Current Visit: Yes (2) Cocaine dependence Current Visit: Yes (3) Nicotine dependence Current Visit: No Qualifiers: Initial treatment plan: Patient is discharged today and referred to [facility] for outpatient treatment
== END 2017-10-16 11:05 | disposition home or self-care (01) | DRG 772 ==
LOC: YASAS 08:25 → Y5N 12:56
PROVIDERS: ADMIT Psychiatry & Neurology Psychiatry; ATTEND Psychiatry & Neurology Psychiatry
PROC: HZ42ZZZ Group Counseling for Substance Abuse Treatment, Cognitive-Behavioral (ICD-10-PCS; principal; 2017-10-04)
DX: F10.20 Alcohol dependence, uncomplicated (principal); F14.20 Cocaine dependence, uncomplicated; F17.210 Nicotine dependence, cigarettes, uncomplicated; Z86.79 Personal history of other diseases of the circulatory system; Z87.898 Personal history of other specified conditions
CPT/HCPCS: 93005; 93010

== ENCOUNTER 2018-07-01 08:15 | Inpatient (IN) | payer OTHER ==
[2018-07-01 08:25] VITALS: BMI 22.4
--- NOTE | 2018-07-01 08:29 | HP ---
CIWA Score Nausea/Vomitin Muscle Tremors: 2 Anxiety: 2 Agitation: 2 Paroxysmal Sweats: 1-Minimal Palms Moist Orientation: 0-Oriented Tacttile Disturbances: 1-Very Mild Itch/Numbness Auditory Disturbances: 1-Very Mild Visual Disturbances: 0-None Headache: 2-Mild CIWA-Ar Total Score: 13 - Admission Criteria OASAS Guidelines: Admission for Medically Managed Detox: Requires at least one of the followin. CIWA greater than 12 2. Seizures within the past 24 hours 3. Delirium tremens within the past 24 hours 4. Hallucinations within the past 24 hours 5. Acute intervention needed for co occurring medical disorder 6. Acute intervention needed for co occurring psychiatric disorder 7. Severe withdrawal that cannot be handled at a lower level of care (continued vomiting, continued diarrhea, abnormal vital signs) requiring intravenous medication and/or fluids 8. Patient presents the following: CIWA greater than 12 Admission Criteria Met: Admission criteria met Admission ROS [facility] - HPI Chief Complaint: i need help to stop drinking alcohol and cocaine Allergies/Adverse Reactions: Allergies Allergy/AdvReac Type Severity Reaction Status Date / Time No Known Allergies Allergy Verified 07/01/18 09:43 History of Present Illness: this 68 years old male with alcohol and cocaine dependence,seeking detox, withdrawal symptom, multiple admissions but keep relapsing,syncope alcohol related last detox [facility] 09/21/17 to 09/25/17,rehab 10/04/17 to 10/16/17 nicotine dependence 1 pack/day weight loss need ed help to stop drinking alcohol and cocaine plan to got o rehab after detox Exam Limitations: No Limitations - Ebola screening Have you traveled outside of the country in the last 21 days: No Have you had contact with anyone from an Ebola affected area: No Have you been sick,other than usual withdrawal symptoms: No Do you have a fever: No - Review of Systems Constitutional: No Symptoms Reported, Loss of Appetite, Night Sweats, Unintentional Wgt. Loss EENT: reports: Nose Congestion Respiratory: reports: No Symptoms reported Cardiac: reports: No Symptoms Reported GI: reports: Nausea, Vomiting, Indigestion, Abdominal cramping : reports: No Symptoms Reported Musculoskeletal: reports: Back Pain, Muscle Pain Integumentary: reports: Dryness Neuro: reports: Headache, Tremors Endocrine: reports: No Symptoms Reported Hematology: reports: No Symptoms Reported Psychiatric: reports: No Sypmtoms Reported, Judgement Intact, Mood/Affect Appropiate, Orientated x3, other Other Systems: Reviewed and Negative Patient History - Patient Medical History Hx Anemia: No Hx Asthma: No Hx Chronic Obstructive Pulmonary Disease (COPD): No Hx Cancer: No Hx Cardiac Disorders: Yes (was admitted in [facility], 2016 for chest pain) Hx Congestive Heart Failure: No Hx Hypertension: No Hx Hypercholesterolemia: No Hx Pacemaker: No HX Cerebrovascular Accident: No Hx Seizures: No Hx Dementia: No Hx Diabetes: No Hx Gastrointestinal Disorders: No Hx Liver Disease: No Hx Genitourinary Disorders: No Hx Sexually Transmitted Disorders: Yes (gonorrhea at age 22) Hx Renal Disease (ESRD): No Hx Thyroid Disease: No Hx Human Immunodeficiency Virus (HIV): No (2018 negative) Hx Hepatitis C: No (NEGATIVE HX) Hx Depression: Yes (no med) Hx Suicide Attempt: No (DENIES) Hx Bipolar Disorder: No Hx Schizophrenia: No Other Medical History: no suicidal,no homicidal - Patient Surgical History Past Surgical History: No Hx Neurologic Surgery: No Hx Cataract Extraction: No Hx Cardiac Surgery: No Hx Lung Surgery: No Hx Breast Surgery: No Hx Breast Biopsy: No Hx Abdominal Surgery: No Hx Appendectomy: No Hx Cholecystectomy: No Hx Genitourinary Surgery: No Hx Section: No Hx Orthopedic Surgery: No Anesthesia Reaction: No - PPD History Previous Implant?: Yes Documented Results: Negative w/proof Date: 08/08/17 Results: 0 mm PPD to be Administered?: No - Smoking Cessation Smoking history: Current every day smoker Have you smoked in the past 12 months: Yes Aproximately how many cigarettes per day: 20 Cigars Per Day: 0 Hx Chewing Tobacco Use: No Initiated information on smoking cessation: Yes 'Breaking Loose' booklet given: 07/01/18 - Substance & Tx. History Hx Alcohol Use: Yes Hx Substance Use: Yes Substance Use Type: Alcohol, Cocaine Hx Substance Use Treatment: Yes ([facility] 09/21/17 to 09/25/17 detox,rehab 10/04/17 to 10/16/17) - Substances Abused Alcohol Route: Oral Frequency: Daily Amount used: 1/2 pint of bacardi,rum/6 packs of 16 ozs of beer Age of first use: 16 Date of Last Use: 06/30/18 Cocaine Route: Smoking Frequency: Daily Amount used: 50$ Age of first use: 36 Date of Last Use: 06/30/18 Family Disease History - Family Disease History Family Disease History: Diabetes: Mother (), Brother (), Other: Father (no contact) Admission Physical Exam [facility] - Vital Signs Vital Signs: Vital Signs Temperature 98.6 F 07/01/18 08:24 Pulse Rate 95 H 07/01/18 08:24 Respiratory Rate 18 07/01/18 08:24 Blood Pressure 115/69 07/01/18 08:24 O2 Sat by Pulse Oximetry (%) - Physical General Appearance: Yes: Moderate Distress, Tremorous, Irritable, Sweating, Anxious HEENTM: Yes: Normal ENT Inspection, Normocephalic, DAVIS, Pharynx Normal Respiratory: Yes: Lungs Clear, Normal Breath Sounds, No Respiratory Distress Neck: Yes: Within Normal Limits, Supple, Trachea in good position Breast: Yes: Within Normal Limits Cardiology: Yes: Within Normal Limits, Regular Rhythm, Regular Rate, S1, S2 Abdominal: Yes: Within Normal Limits, Normal Bowel Sounds, Non Tender, Soft Genitourinary: Yes: Within Normal Limits Back: Yes: Muscle Spasm Musculoskeletal: Yes: full range of Motion, Back pain, Muscle Pain Extremities: Yes: Within Normal Limits, Tremors 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 NML intact, Fully Oriented, Alert Integumentary: Yes: Dry Lymphatic: Yes: Within Normal Limits - Diagnostic (1) Alcohol dependence with uncomplicated withdrawal Current Visit: No Status: Acute (2) Cocaine dependence Current Visit: No Status: Acute (3) Weight loss Current Visit: No Status: Acute (4) Nicotine dependence Current Visit: No Status: Chronic Qualifiers: (5) Syncope Current Visit: No Status: Acute Cleared for Admission [facility] - Detox or Rehab [facility] Level of Care: Medically Managed Detox Regimen/Protocol: Librium [facility] Breath Alcohol Content Breath Alcohol Content: 0 Inpatient Rehab Admission - Rehab Decision to Admit Inpatient rehab admission?: No - Initial Determination Are CD services needed?: Yes Free of communicable disease: Yes Not in need of hospitalization: Yes - Rehab Admission Criteria Previous failed treatment: Yes Poor recovery environment: Yes Comorbidities: Yes Lacks judgement: No Patient is meeting Inpatient Rehab admission criteria:: Yes
[2018-07-01] MEDS ORDERED: chlordiazePOXIDE HCL 25 MG CAPSULE PO PRN (08:38)
[2018-07-01] MEDS ORDERED: MAGNESIUM CITRATE 300 ML BOTTLE PO PRN (08:38)
[2018-07-01] MEDS ORDERED: LOPERAMIDE HCL 2 MG CAPSULE PO PRN (08:38)
[2018-07-01] MEDS ORDERED: ACETAMINOPHEN 325 MG TABLET (FP) PO PRN (08:38)
[2018-07-01] MEDS ORDERED: hydrOXYzine PAMOATE 50 MG CAPSULE (FP) PO PRN (08:38)
[2018-07-01] MEDS ORDERED: P-EPHED 60MG/TRIPROLIDI 2.5MG TABLET PO PRN (08:38)
[2018-07-01] MEDS ORDERED: MENTHOL/PHENOL 1 EACH UD MM PRN (08:38)
[2018-07-01] MEDS ORDERED: guaiFENesin/D-METHORPHAN HB 10 ML UNIT-DOSE CUPS PO PRN (08:38)
[2018-07-01] MEDS ORDERED: MAGNESIUM HYDROX 2400MG/30ML ORAL SUSPENSION 30 ML CUP PO PRN (08:38)
[2018-07-01] MEDS ORDERED: IBUPROFEN 400 MG TABLET (FP) PO PRN (08:38)
[2018-07-01] MEDS ORDERED: MAG HYDROX/AL HYDROX/SIMETH 30 ML UNIT-DOSE CUP PO PRN (08:38)
[2018-07-01] MEDS: chlordiazePOXIDE HCL 25 MG CAPSULE PO SCH ×3 (10:50→23:01)
[2018-07-01] MEDS: PRENATAL VITAMINS W/ FOLIC ACID TABLET (FP) PO SCH (10:50)
[2018-07-01] MEDS ORDERED: MELATONIN 5 MG TABLETS PO PRN (22:00)
[2018-07-01] MEDS: THIAMINE HCL 100 MG TABLET (FP) PO SCH (23:01)
[2018-07-02 01:23] LABS: URINE APPEARANCE CLEAR; URINE BILIRUBIN NEGATIVE (<2.0 mg/dL); URINE COLOR YELLOW; URINE GLUCOSE (UA) NEGATIVE (NEGATIVE); URINE KETONE NEGATIVE (NEGATIVE); URINE LEUK ESTERASE NEGATIVE (NEGATIVE); URINE NITRITE NEGATIVE (NEGATIVE); URINE PROTEIN NEGATIVE (NEGATIVE)
[2018-07-02] MEDS: chlordiazePOXIDE HCL 25 MG CAPSULE PO SCH (05:12)
[2018-07-02 10:04] LABS: ALBUMIN 4.1 g/dl (3.4-5.0); ALK PHOS 125 U/L (45-117); ANION GAP 9 MMOL/L (8-16); BILIRUBIN,TOTAL 0.9 mg/dL (0.2-1); BLOOD UREA NITROGEN 12 mg/dL (7-18); CALCIUM 9.5 mg/dL (8.5-10.1); CHLORIDE 103 mmol/L (98-107); CO2 27 mmol/L (21-32); CREATININE 1.4 mg/dL (0.55-1.3); GLUCOSE,RANDOM 136 mg/dL (74-106); HEMATOCRIT 39.9 % (35.4-49); HEMOGLOBIN 13.5 GM/dL (11.7-16.9); MCH 27.1 pg (25.7-33.7); MCHC 33.9 g/dl (32.0-35.9); MEAN CELL VOLUME 79.9 fl (80-96); MEAN PLT VOLUME 8.4 fl (7.5-11.1); PLATELET COUNT 261 K/MM3 (134-434); POTASSIUM 4.5 mmol/L (3.5-5.1); RDW 16.9 % (11.9-15.9); SGOT/AST 36 U/L (15-37); SGPT/ALT 29 U/L (13-61); SODIUM 139 mmol/L (136-145); TOT PROT 7.8 g/dl (6.4-8.2); WHITE BLOOD COUNT 4.9 K/mm3 (4.0-10.0)
[2018-07-02] MEDS: PRENATAL VITAMINS W/ FOLIC ACID TABLET (FP) PO SCH (10:15)
--- NOTE | 2018-07-02 10:37 | PN ---
[facility] CIWA - CIWA Score Nausea/Vomitin-No Nausea/No Vomiting Muscle Tremors: 3 Anxiety: 2 Agitation: 2 Paroxysmal Sweats: 1-Minimal Palms Moist Orientation: 1-Uncertain about Date Tacttile Disturbances: 0-None Auditory Disturbances: 0-None Visual Disturbances: 0-None Headache: 1-Very Mild CIWA-Ar Total Score: 10 S Progress Note (SOAP) Subjective: requests adjusting librium dosage patient presenting tremor sweating anxiety review librium dosage reduce librium 25 mg to 15 mg Objective: 07/02/18 10:35 Vital Signs Temperature 97.1 F L 07/02/18 09:44 Pulse Rate 98 H 07/02/18 09:44 Respiratory Rate 20 07/02/18 09:44 Blood Pressure 101/54 L 07/02/18 09:44 O2 Sat by Pulse Oximetry (%) Laboratory Last Values WBC 4.9 K/mm3 (4.0-10.0) 07/02/18 06:00 RBC 5.00 M/mm3 (4.00-5.60) 07/02/18 06:00 Hgb 13.5 GM/dL (11.7-16.9) 07/02/18 06:00 Hct 39.9 % (35.4-49) 07/02/18 06:00 MCV 79.9 fl (80-96) L 07/02/18 06:00 MCH 27.1 pg (25.7-33.7) 07/02/18 06:00 MCHC 33.9 g/dl (32.0-35.9) 07/02/18 06:00 RDW 16.9 % (11.9-15.9) H 07/02/18 06:00 Plt Count 261 K/MM3 (134-434) D 07/02/18 06:00 MPV 8.4 fl (7.5-11.1) 07/02/18 06:00 Sodium 139 mmol/L (136-145) 07/02/18 06:00 Potassium 4.5 mmol/L (3.5-5.1) 07/02/18 06:00 Chloride 103 mmol/L (98-107) 07/02/18 06:00 Carbon Dioxide 27 mmol/L (21-32) 07/02/18 06:00 Anion Gap 9 MMOL/L (8-16) 07/02/18 06:00 BUN 12 mg/dL (7-18) 07/02/18 06:00 Creatinine 1.4 mg/dL (0.55-1.3) H 07/02/18 06:00 Creat Clearance w eGFR 50.55 (>60) 07/02/18 06:00 Random Glucose 136 mg/dL (74-106) H 07/02/18 06:00 Calcium 9.5 mg/dL (8.5-10.1) 07/02/18 06:00 Total Bilirubin 0.9 mg/dL (0.2-1) 07/02/18 06:00 AST 36 U/L (15-37) 07/02/18 06:00 ALT 29 U/L (13-61) 07/02/18 06:00 Alkaline Phosphatase 125 U/L (45-117) H 07/02/18 06:00 Total Protein 7.8 g/dl (6.4-8.2) 07/02/18 06:00 Albumin 4.1 g/dl (3.4-5.0) 07/02/18 06:00 Urine Color Yellow 07/01/18 20:34 Urine Appearance Clear 07/01/18 20:34 Urine pH 5.0 (5.0-8.0) 07/01/18 20:34 Ur Specific [place] 1.017 (1.010-1.035) 07/01/18 20:34 Urine Protein Negative (NEGATIVE) 07/01/18 20:34 Urine Glucose (UA) Negative (NEGATIVE) 07/01/18 20:34 Urine Ketones Negative (NEGATIVE) 07/01/18 20:34 Urine Blood Negative (NEGATIVE) 07/01/18 20:34 Urine Nitrite Negative (NEGATIVE) 07/01/18 20:34 Urine Bilirubin Negative (<2.0 mg/dL) 07/01/18 20:34 Urine Urobilinogen 2.0 mg/dL (0.2-1.0) 07/01/18 20:34 Ur Leukocyte Esterase Negative (NEGATIVE) 07/01/18 20:34 lab noted Assessment: 07/02/18 10:36 withdrawal sx Plan: continue detox
[2018-07-02] MEDS ORDERED: chlordiazePOXIDE HCL 25 MG CAPSULE PO SCH ×2 (11:00)
[2018-07-02] MEDS: chlordiazePOXIDE 5 MG CAPSULE PO SCH ×2 (17:24→23:00)
[2018-07-02] MEDS: THIAMINE HCL 100 MG TABLET (FP) PO SCH (22:59)
[2018-07-03] MEDS: chlordiazePOXIDE 5 MG CAPSULE PO SCH ×4 (05:23→22:45)
--- NOTE | 2018-07-03 09:40 | PN ---
[facility] CIWA - CIWA Score Nausea/Vomitin-No Nausea/No Vomiting Muscle Tremors: 2 Anxiety: 1-Mildly Anxious Agitation: 1-Slight > Activity Paroxysmal Sweats: 1-Minimal Palms Moist Orientation: 1-Uncertain about Date Tacttile Disturbances: 0-None Auditory Disturbances: 0-None Visual Disturbances: 0-None Headache: 1-Very Mild CIWA-Ar Total Score: 7 S Progress Note (SOAP) Subjective: tremor sweating trouble sleep at night low energy Objective: 07/03/18 09:39 Vital Signs Temperature 96.6 F L 07/03/18 09:06 Pulse Rate 90 07/03/18 09:06 Respiratory Rate 18 07/03/18 09:06 Blood Pressure 94/64 07/03/18 09:06 O2 Sat by Pulse Oximetry (%) Laboratory Last Values WBC 4.9 K/mm3 (4.0-10.0) 07/02/18 06:00 RBC 5.00 M/mm3 (4.00-5.60) 07/02/18 06:00 Hgb 13.5 GM/dL (11.7-16.9) 07/02/18 06:00 Hct 39.9 % (35.4-49) 07/02/18 06:00 MCV 79.9 fl (80-96) L 07/02/18 06:00 MCH 27.1 pg (25.7-33.7) 07/02/18 06:00 MCHC 33.9 g/dl (32.0-35.9) 07/02/18 06:00 RDW 16.9 % (11.9-15.9) H 07/02/18 06:00 Plt Count 261 K/MM3 (134-434) D 07/02/18 06:00 MPV 8.4 fl (7.5-11.1) 07/02/18 06:00 Sodium 139 mmol/L (136-145) 07/02/18 06:00 Potassium 4.5 mmol/L (3.5-5.1) 07/02/18 06:00 Chloride 103 mmol/L (98-107) 07/02/18 06:00 Carbon Dioxide 27 mmol/L (21-32) 07/02/18 06:00 Anion Gap 9 MMOL/L (8-16) 07/02/18 06:00 BUN 12 mg/dL (7-18) 07/02/18 06:00 Creatinine 1.4 mg/dL (0.55-1.3) H 07/02/18 06:00 Creat Clearance w eGFR 50.55 (>60) 07/02/18 06:00 Random Glucose 136 mg/dL (74-106) H 07/02/18 06:00 Calcium 9.5 mg/dL (8.5-10.1) 07/02/18 06:00 Total Bilirubin 0.9 mg/dL (0.2-1) 07/02/18 06:00 AST 36 U/L (15-37) 07/02/18 06:00 ALT 29 U/L (13-61) 07/02/18 06:00 Alkaline Phosphatase 125 U/L (45-117) H 07/02/18 06:00 Total Protein 7.8 g/dl (6.4-8.2) 07/02/18 06:00 Albumin 4.1 g/dl (3.4-5.0) 07/02/18 06:00 Urine Color Yellow 07/01/18 20:34 Urine Appearance Clear 07/01/18 20:34 Urine pH 5.0 (5.0-8.0) 07/01/18 20:34 Ur Specific [place] 1.017 (1.010-1.035) 07/01/18 20:34 Urine Protein Negative (NEGATIVE) 07/01/18 20:34 Urine Glucose (UA) Negative (NEGATIVE) 07/01/18 20:34 Urine Ketones Negative (NEGATIVE) 07/01/18 20:34 Urine Blood Negative (NEGATIVE) 07/01/18 20:34 Urine Nitrite Negative (NEGATIVE) 07/01/18 20:34 Urine Bilirubin Negative (<2.0 mg/dL) 07/01/18 20:34 Urine Urobilinogen 2.0 mg/dL (0.2-1.0) 07/01/18 20:34 Ur Leukocyte Esterase Negative (NEGATIVE) 07/01/18 20:34 RPR Titer Nonreactive (NONREACTIVE) 07/02/18 06:00 lab noted Assessment: 07/03/18 09:39 alcohol withdrawal sx Plan: continue alcohol detox regimen that the patient is doing well with the regimen
[2018-07-03] MEDS: PRENATAL VITAMINS W/ FOLIC ACID TABLET (FP) PO SCH (10:13)
[2018-07-03] MEDS: THIAMINE HCL 100 MG TABLET (FP) PO SCH (22:45)
[2018-07-04] MEDS: chlordiazePOXIDE 5 MG CAPSULE PO SCH (07:23)
--- NOTE | 2018-07-04 08:52 | PN ---
[facility] CIWA - CIWA Score Nausea/Vomitin-No Nausea/No Vomiting Muscle Tremors: 1-None Visible, but [place] Anxiety: 1-Mildly Anxious Agitation: 1-Slight > Activity Paroxysmal Sweats: No Perspiration Orientation: 0-Oriented Tacttile Disturbances: 0-None Auditory Disturbances: 0-None Visual Disturbances: 0-None Headache: 1-Very Mild CIWA-Ar Total Score: 4 BHS Progress Note (SOAP) Subjective: feeling better less tremor mild sweating tolerate food and fluid well Objective: 07/04/18 09:22 Vital Signs Temperature 98.2 F 07/04/18 09:10 Pulse Rate 95 H 07/04/18 09:10 Respiratory Rate 18 07/04/18 09:10 Blood Pressure 112/70 07/04/18 09:10 O2 Sat by Pulse Oximetry (%) Laboratory Last Values WBC 4.9 K/mm3 (4.0-10.0) 07/02/18 06:00 RBC 5.00 M/mm3 (4.00-5.60) 07/02/18 06:00 Hgb 13.5 GM/dL (11.7-16.9) 07/02/18 06:00 Hct 39.9 % (35.4-49) 07/02/18 06:00 MCV 79.9 fl (80-96) L 07/02/18 06:00 MCH 27.1 pg (25.7-33.7) 07/02/18 06:00 MCHC 33.9 g/dl (32.0-35.9) 07/02/18 06:00 RDW 16.9 % (11.9-15.9) H 07/02/18 06:00 Plt Count 261 K/MM3 (134-434) D 07/02/18 06:00 MPV 8.4 fl (7.5-11.1) 07/02/18 06:00 Sodium 139 mmol/L (136-145) 07/02/18 06:00 Potassium 4.5 mmol/L (3.5-5.1) 07/02/18 06:00 Chloride 103 mmol/L (98-107) 07/02/18 06:00 Carbon Dioxide 27 mmol/L (21-32) 07/02/18 06:00 Anion Gap 9 MMOL/L (8-16) 07/02/18 06:00 BUN 12 mg/dL (7-18) 07/02/18 06:00 Creatinine 1.4 mg/dL (0.55-1.3) H 07/02/18 06:00 Creat Clearance w eGFR 50.55 (>60) 07/02/18 06:00 Random Glucose 136 mg/dL (74-106) H 07/02/18 06:00 Calcium 9.5 mg/dL (8.5-10.1) 07/02/18 06:00 Total Bilirubin 0.9 mg/dL (0.2-1) 07/02/18 06:00 AST 36 U/L (15-37) 07/02/18 06:00 ALT 29 U/L (13-61) 07/02/18 06:00 Alkaline Phosphatase 125 U/L (45-117) H 07/02/18 06:00 Total Protein 7.8 g/dl (6.4-8.2) 07/02/18 06:00 Albumin 4.1 g/dl (3.4-5.0) 07/02/18 06:00 Urine Color Yellow 07/01/18 20:34 Urine Appearance Clear 07/01/18 20:34 Urine pH 5.0 (5.0-8.0) 07/01/18 20:34 Ur Specific [place] 1.017 (1.010-1.035) 07/01/18 20:34 Urine Protein Negative (NEGATIVE) 07/01/18 20:34 Urine Glucose (UA) Negative (NEGATIVE) 07/01/18 20:34 Urine Ketones Negative (NEGATIVE) 07/01/18 20:34 Urine Blood Negative (NEGATIVE) 07/01/18 20:34 Urine Nitrite Negative (NEGATIVE) 07/01/18 20:34 Urine Bilirubin Negative (<2.0 mg/dL) 07/01/18 20:34 Urine Urobilinogen 2.0 mg/dL (0.2-1.0) 07/01/18 20:34 Ur Leukocyte Esterase Negative (NEGATIVE) 07/01/18 20:34 RPR Titer Nonreactive (NONREACTIVE) 07/02/18 06:00 lab noted Assessment: 07/04/18 09:23 mild alcohol withdrawal sx Plan: continue detox
[2018-07-04] MEDS: PRENATAL VITAMINS W/ FOLIC ACID TABLET (FP) PO SCH (10:22)
[2018-07-04] MEDS: chlordiazePOXIDE HCL 10 MG CAPSULE PO SCH ×3 (10:23→22:35)
[2018-07-04] MEDS: THIAMINE HCL 100 MG TABLET (FP) PO SCH (22:35)
[2018-07-05 06:02] VITALS: BP 113/72; PULSE 80; TEMP 98.1
[2018-07-05] MEDS: chlordiazePOXIDE HCL 10 MG CAPSULE PO SCH (06:18)
--- NOTE | 2018-07-05 19:01 | DS ---
[facility] Detox Discharge Summary Admission Date: 07/01/18 Discharge Date: 07/05/18 - History Present History: Alcohol Dependence, Cocaine Dependence Additional Comments: PATIENT GOING HOME FOR TIME BEING TO ATTEND TO SOME PERSONAL AFFAIRS, THEN WILL EITHER ATTEND [facility] ([place], [place]) AND/OR [facility] OUTPATIENT SUBSTANCE USE TREATMENT PROGRAM ([place], [place]) FOR AFTERCARE. PATIENT WAS DISCHARGED FROM DETOX UNIT IN STABLE MEDICAL CONDITION. Pertinent Past History: Nicotine Dependence, Syncope, History of Weight Loss. - Physical Exam Results Vital Signs: Vital Signs Temperature 98.1 F 07/05/18 06:02 Pulse Rate 80 07/05/18 06:02 Respiratory Rate 18 07/05/18 06:30 Blood Pressure 113/72 07/05/18 06:02 O2 Sat by Pulse Oximetry (%) Pertinent Admission Physical Exam Findings: WITHDRAWAL SYMPTOMS. Laboratory Tests 07/01/18 07/02/18 07/02/18 20:34 06:00 06:00 WBC 4.9 RBC 5.00 Hgb 13.5 Hct 39.9 MCV 79.9 L MCH 27.1 MCHC 33.9 RDW 16.9 H Plt Count 261 D MPV 8.4 Sodium 139 Potassium 4.5 Chloride 103 Carbon Dioxide 27 Anion Gap 9 BUN 12 Creatinine 1.4 H Creat Clearance w eGFR 50.55 Random Glucose 136 H Calcium 9.5 Total Bilirubin 0.9 AST 36 ALT 29 Alkaline Phosphatase 125 H Total Protein 7.8 Albumin 4.1 Urine Color Yellow Urine Appearance Clear Urine pH 5.0 Ur Specific [place] 1.017 Urine Protein Negative Urine Glucose (UA) Negative Urine Ketones Negative Urine Blood Negative Urine Nitrite Negative Urine Bilirubin Negative Urine Urobilinogen 2.0 Ur Leukocyte Esterase Negative RPR Titer 07/02/18 06:00 WBC RBC Hgb Hct MCV MCH MCHC RDW Plt Count MPV Sodium Potassium Chloride Carbon Dioxide Anion Gap BUN Creatinine Creat Clearance w eGFR Random Glucose Calcium Total Bilirubin AST ALT Alkaline Phosphatase Total Protein Albumin Urine Color Urine Appearance Urine pH Ur Specific [place] Urine Protein Urine Glucose (UA) Urine Ketones Urine Blood Urine Nitrite Urine Bilirubin Urine Urobilinogen Ur Leukocyte Esterase RPR Titer Nonreactive LABS NOTED. - Treatment Hospital Course: Detox Protocol Followed, Detoxed Safely, Responded well, Discharged Condition Good Patient has Accepted a Rehab Referral to: PT. WILL CONSIDER [facility] ADMISSION FOR FUTURE. - Medication Discharge Medications: Ambulatory Orders NK [No Known Home Medication] 02/21/17 - Diagnosis (1) Alcohol dependence with uncomplicated withdrawal Status: Acute (2) Syncope Status: Acute Qualifiers: Syncope type: unspecified Qualified Code(s): R55 - Syncope and collapse (3) Weight loss Status: Acute (4) Cocaine dependence, uncomplicated Status: Chronic (5) Nicotine dependence Status: Chronic Qualifiers: Nicotine product type: cigarettes Substance use status: uncomplicated Qualified Code(s): F17.210 - Nicotine dependence, cigarettes, uncomplicated - AMA Did Patient Leave Against Medical Advice: No
== END 2018-07-05 09:10 | disposition home or self-care (01) | DRG 774 ==
LOC: YASAS 08:15 → Y3N 09:46
PROVIDERS: ADMIT Surgery; ATTEND Surgery
PROC: HZ2ZZZZ Detoxification Services for Substance Abuse Treatment (ICD-10-PCS; principal; 2018-07-01)
DX: F10.230 Alcohol dependence with withdrawal, uncomplicated (principal); F14.20 Cocaine dependence, uncomplicated; F17.210 Nicotine dependence, cigarettes, uncomplicated; R55 Syncope and collapse; R63.4 Abnormal weight loss; Z68.22 Body mass index [BMI] 22.0-22.9, adult; Z86.19 Personal history of other infectious and parasitic diseases
CPT/HCPCS: 36415; 80053; 81003; 85027; 86593

== ENCOUNTER 2018-07-08 09:18 | Inpatient (IN) | payer OTHER ==
[2018-07-08 10:18] VITALS: BMI 30.4
--- NOTE | 2018-07-08 10:18 | HP ---
[facility] Rehab Assess/Revision - Admission History Admitted to Rehab from: [facility] Date of Admission to Rehab: 07/08/18 - Findings Detox History & Physical reviewed: Yes Concur with findings: Yes Comments/Additional Findings: for rehab as protocol Inpatient Rehab Admission - Rehab Decision to Admit Inpatient rehab admission?: Yes - Initial Determination Are CD services needed?: Yes Free of communicable disease: Yes Not in need of hospitalization: Yes - Rehab Admission Criteria Previous failed treatment: Yes Poor recovery environment: Yes Comorbidities: Yes Lacks judgement: No Patient is meeting Inpatient Rehab admission criteria:: Yes
[2018-07-08] MEDS ORDERED: guaiFENesin/D-METHORPHAN HB 10 ML UNIT-DOSE CUPS PO PRN (10:19)
[2018-07-08] MEDS ORDERED: MAG HYDROX/AL HYDROX/SIMETH 30 ML UNIT-DOSE CUP PO PRN (10:19)
[2018-07-08] MEDS ORDERED: P-EPHED 60MG/TRIPROLIDI 2.5MG TABLET PO PRN (10:19)
[2018-07-08] MEDS ORDERED: hydrOXYzine PAMOATE 50 MG CAPSULE (FP) PO PRN (10:19)
[2018-07-08] MEDS ORDERED: ACETAMINOPHEN 325 MG TABLET (FP) PO PRN (10:19)
[2018-07-08] MEDS ORDERED: MAGNESIUM HYDROX 2400MG/30ML ORAL SUSPENSION 30 ML CUP PO PRN (10:19)
[2018-07-08] MEDS ORDERED: MAGNESIUM CITRATE 300 ML BOTTLE PO PRN (10:19)
[2018-07-08] MEDS ORDERED: MENTHOL/PHENOL 1 EACH UD MM PRN (10:19)
[2018-07-08] MEDS ORDERED: IBUPROFEN 400 MG TABLET (FP) PO PRN (10:19)
[2018-07-08] MEDS ORDERED: LOPERAMIDE HCL 2 MG CAPSULE PO PRN (10:19)
[2018-07-08] MEDS: THIAMINE HCL 100 MG TABLET (FP) PO SCH (21:49)
[2018-07-08] MEDS ORDERED: MELATONIN 5 MG TABLETS PO PRN (22:00)
[2018-07-09] MEDS: PRENATAL VITAMINS W/ FOLIC ACID TABLET (FP) PO SCH (10:15)
[2018-07-09] MEDS: THIAMINE HCL 100 MG TABLET (FP) PO SCH (21:58)
[2018-07-10 08:01] VITALS: BP 132/69; PULSE 75; TEMP 97.8
[2018-07-10] MEDS: PRENATAL VITAMINS W/ FOLIC ACID TABLET (FP) PO SCH (10:05)
--- NOTE | 2018-07-11 12:21 | PN ---
S Progress Note Note: LATE ENTRY: INFORMED THIS MORNING BY NURSE JEAN CLAUDE THAT PT SIGNED OUT AMA YESTERDAY WHO REPORTS PT DECLINED TO WAIT FOR THIS PROVIDER TO SEE HIM BEFORE EXITING. PLEASE SEE NURSES NOTES.
== END 2018-07-10 13:15 | disposition left against medical advice (07) | DRG 770 ==
LOC: YASAS 09:18 → Y5N 10:21
PROVIDERS: ADMIT Neuromusculoskeletal Medicine & OMM; ATTEND Neuromusculoskeletal Medicine & OMM
PROC: HZ42ZZZ Group Counseling for Substance Abuse Treatment, Cognitive-Behavioral (ICD-10-PCS; principal; 2018-07-08)
DX: F10.20 Alcohol dependence, uncomplicated (principal); F14.20 Cocaine dependence, uncomplicated; F17.210 Nicotine dependence, cigarettes, uncomplicated; Z87.438 Personal history of other diseases of male genital organs

== ENCOUNTER 2018-07-30 08:30 | Inpatient (IN) | payer OTHER ==
[2018-07-30 09:17] VITALS: BMI 29.5
--- NOTE | 2018-07-30 10:29 | HP ---
CIWA Score Nausea/Vomitin-No Nausea/No Vomiting Muscle Tremors: None Anxiety: 0-No Anxiety, at Ease Agitation: 0-Normal Activity Paroxysmal Sweats: 2 Orientation: 1-Uncertain about Date Tacttile Disturbances: 0-None Auditory Disturbances: 0-None Visual Disturbances: 1-Very Mild Sensitivity Headache: 0-None Present CIWA-Ar Total Score: 4 - Admission Criteria OASAS Guidelines: Admission for Medically Managed Detox: Requires at least one of the followin. CIWA greater than 12 2. Seizures within the past 24 hours 3. Delirium tremens within the past 24 hours 4. Hallucinations within the past 24 hours 5. Acute intervention needed for co occurring medical disorder 6. Acute intervention needed for co occurring psychiatric disorder 7. Severe withdrawal that cannot be handled at a lower level of care (continued vomiting, continued diarrhea, abnormal vital signs) requiring intravenous medication and/or fluids 8. Admission ROS S - HPI Allergies/Adverse Reactions: Allergies Allergy/AdvReac Type Severity Reaction Status Date / Time No Known Allergies Allergy Verified 07/30/18 09:19 History of Present Illness: pt here requesting detox from etoh use , reports 1 x 6-pk/day since , latest use yesterday evening , current symptoms as above , reports some tremors if not drinking , starts drinking in the mornings , denies seizures, blackouts , denies falls while intoxicated . Most recent detox per MR -07/05/18 , rehab 07/08/18 -07/10/18. cocaine : 50 $/day denies IVDU , first use , daily use tobacco: 1 ppd PMHX : denies PSHX : denies PSych : denies meds : denies Shx : lives in fpc , unemployed Exam Limitations: No Limitations - Ebola screening Have you traveled outside of the country in the last 21 days: No Have you had contact with anyone from an Ebola affected area: No Have you been sick,other than usual withdrawal symptoms: No Do you have a fever: No - Review of Systems Constitutional: See HPI EENT: reports: See HPI Respiratory: reports: No Symptoms reported Cardiac: reports: No Symptoms Reported GI: reports: No Symptoms Reported : reports: No Symptoms Reported Musculoskeletal: reports: Joint Pain (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, knees, hip R) Integumentary: reports: No Symptoms Reported Neuro: reports: No Symptoms reported Endocrine: reports: No Symptoms Reported Psychiatric: reports: Orientated x3 Patient History - Patient Medical History Hx Anemia: No Hx Asthma: No Hx Chronic Obstructive Pulmonary Disease (COPD): No Hx Cancer: No Hx Cardiac Disorders: No Hx Congestive Heart Failure: No Hx Hypertension: No Hx Hypercholesterolemia: No Hx Pacemaker: No HX Cerebrovascular Accident: No Hx Seizures: No Hx Dementia: No Hx Diabetes: No Hx Gastrointestinal Disorders: No Hx Liver Disease: No Hx Genitourinary Disorders: No Hx Sexually Transmitted Disorders: No Hx Renal Disease (ESRD): No Hx Thyroid Disease: No Hx Human Immunodeficiency Virus (HIV): No (2018 negative) Hx Hepatitis C: No (NEGATIVE HX) Hx Depression: No Hx Suicide Attempt: No Hx Bipolar Disorder: No Hx Schizophrenia: No - Patient Surgical History Past Surgical History: No Hx Neurologic Surgery: No Hx Cataract Extraction: No Hx Cardiac Surgery: No Hx Lung Surgery: No Hx Breast Surgery: No Hx Breast Biopsy: No Hx Abdominal Surgery: No Hx Appendectomy: No Hx Cholecystectomy: No Hx Genitourinary Surgery: No Hx Section: No Hx Orthopedic Surgery: No Anesthesia Reaction: No - PPD History Previous Implant?: Yes Documented Results: Negative w/proof Implanted On Prior R Admission?: Yes Date: 08/08/17 Results: 0 mm - Smoking Cessation Smoking history: Current every day smoker Have you smoked in the past 12 months: Yes Aproximately how many cigarettes per day: 40 Cigars Per Day: 0 Hx Chewing Tobacco Use: No Initiated information on smoking cessation: No - Substances Abused Alcohol Route: Oral Frequency: Daily Amount used: 2 6pk of beer Age of first use: 16 Date of Last Use: 07/29/18 Crack Route: Smoking Frequency: Daily Amount used: $50 Age of first use: 36 Date of Last Use: 07/29/18 Family Disease History - Family Disease History Family Disease History: Diabetes: Mother (), Brother (), Other: Father (no contact) Admission Physical Exam [facility] - Vital Signs Vital Signs: Vital Signs - 24 hr 07/30/18 09:13 Temperature 97.4 F L Pulse Rate 85 Respiratory 20 Rate Blood Pressure 109/66 - Physical General Appearance: Yes: No Apparent Distress HEENTM: Yes: EOMI, Hearing grossly Normal, Normocephalic, Normal Voice, Other ( poor dentition, many missing teeth) Respiratory: Yes: Chest Non-Tender, Lungs Clear, Normal Breath Sounds Neck: Yes: No masses,lesions,Nodules, Trachea in good position Cardiology: Yes: Regular Rhythm, Regular Rate, S1, S2 Abdominal: Yes: Non Tender, Soft Genitourinary: Yes: Within Normal Limits Back: Yes: Normal Inspection Musculoskeletal: Yes: Joint Stiffness Extremities: Yes: Normal Capillary Refill, Non-Tender 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: Yes: Motor Strength 5/5 Integumentary: Yes: Normal Color, Dry - Diagnostic (1) Alcohol dependence Current Visit: Yes Status: Chronic Qualifiers: Substance use status: uncomplicated Qualified Code(s): F10.20 - Alcohol dependence, uncomplicated (2) Cocaine dependence Current Visit: Yes Status: Chronic Qualifiers: Substance use status: uncomplicated Qualified Code(s): F14.20 - Cocaine dependence, uncomplicated (3) Nicotine dependence Current Visit: Yes Status: Chronic Qualifiers: Nicotine product type: cigarettes Substance use status: uncomplicated Qualified Code(s): F17.210 - Nicotine dependence, cigarettes, uncomplicated BHS Breath Alcohol Content Breath Alcohol Content: 0 Urine Drug Screen - Results Drug Screen Negative: No Urine Drug Screen Results: MADHURI-Cocaine, BZO-Benzodiazepines Inpatient Rehab Admission - Rehab Decision to Admit Inpatient rehab admission?: Yes - Initial Determination Are CD services needed?: Yes Free of communicable disease: Yes Not in need of hospitalization: Yes - Rehab Admission Criteria Previous failed treatment: Yes Poor recovery environment: Yes Comorbidities: No Lacks judgement: Yes Patient is meeting Inpatient Rehab admission criteria:: Yes
[2018-07-30] MEDS ORDERED: MAG HYDROX/AL HYDROX/SIMETH 30 ML UNIT-DOSE CUP PO PRN (10:31)
[2018-07-30] MEDS ORDERED: ACETAMINOPHEN 325 MG TABLET (FP) PO PRN (10:31)
[2018-07-30] MEDS ORDERED: MAGNESIUM CITRATE 300 ML BOTTLE PO PRN (10:31)
[2018-07-30] MEDS ORDERED: NICOTINE POLACRILEX 2 MG GUM BUC PRN (10:31)
[2018-07-30] MEDS ORDERED: MAGNESIUM HYDROX 2400MG/30ML ORAL SUSPENSION 30 ML CUP PO PRN (10:31)
[2018-07-30] MEDS ORDERED: P-EPHED 60MG/TRIPROLIDI 2.5MG TABLET PO PRN (10:31)
[2018-07-30] MEDS ORDERED: IBUPROFEN 400 MG TABLET (FP) PO PRN (10:31)
[2018-07-30] MEDS ORDERED: MENTHOL/PHENOL 1 EACH UD MM PRN (10:31)
[2018-07-30] MEDS ORDERED: guaiFENesin 200 MG/10 ML 10 ML UNIT-DOSE CUPS PO PRN (10:31)
[2018-07-30] MEDS ORDERED: TUBERCULIN PPD 5 TU/0.1ML VIAL ID ONE (19:50)
[2018-07-30] MEDS: THIAMINE HCL 100 MG TABLET (FP) PO SCH (21:47)
[2018-07-30] MEDS ORDERED: MELATONIN 5 MG TABLETS PO PRN (22:00)
[2018-07-31 01:27] LABS: URINE APPEARANCE CLEAR; URINE BILIRUBIN NEGATIVE (NEGATIVE); URINE COLOR YELLOW; URINE GLUCOSE (UA) 1+ (NEGATIVE); URINE KETONE NEGATIVE (NEGATIVE); URINE LEUK ESTERASE NEGATIVE (NEGATIVE); URINE NITRITE NEGATIVE (NEGATIVE); URINE PROTEIN NEGATIVE (NEGATIVE); URINE UROBILINOGEN 0.2 mg/dL (0.2-1.0)
[2018-07-31] MEDS: PRENATAL VITAMINS W/ FOLIC ACID TABLET (FP) PO SCH (10:40)
[2018-07-31 12:45] LABS: HEMATOCRIT 39.3 % (35.4-49); HEMOGLOBIN 13.1 GM/dL (11.7-16.9); MCH 27.3 pg (25.7-33.7); MCHC 33.4 g/dl (32.0-35.9); MEAN CELL VOLUME 81.6 fl (80-96); MEAN PLT VOLUME 8.5 fl (7.5-11.1); PLATELET COUNT 256 K/MM3 (134-434); RBC 4.82 M/mm3 (4.00-5.60); RDW 18.3 % (11.9-15.9); WHITE BLOOD COUNT 4.8 K/mm3 (4.0-10.0)
[2018-07-31 13:20] LABS: ANION GAP 9 MMOL/L (8-16); BLOOD UREA NITROGEN 19 mg/dL (7-18); CALCIUM 9.3 mg/dL (8.5-10.1); CHLORIDE 107 mmol/L (98-107); CO2 26 mmol/L (21-32); CREATININE 1.3 mg/dL (0.55-1.3); GLUCOSE,RANDOM 74 mg/dL (74-106); POTASSIUM 5.6 mmol/L (3.5-5.1); SODIUM 142 mmol/L (136-145)
[2018-07-31] MEDS: THIAMINE HCL 100 MG TABLET (FP) PO SCH (21:31)
[2018-08-01] MEDS: PRENATAL VITAMINS W/ FOLIC ACID TABLET (FP) PO SCH (09:14)
--- NOTE | 2018-08-01 14:19 | PN ---
S Progress Note Note: labs show elevated potassium 5.6 (upper level5.1). Asymptomatic. Labs to be re- drawn tomorrow. Nurses instructed to increase patient's fluids and decrease intake of potassium
[2018-08-01] MEDS: THIAMINE HCL 100 MG TABLET (FP) PO SCH (22:04)
[2018-08-02] MEDS: PRENATAL VITAMINS W/ FOLIC ACID TABLET (FP) PO SCH (10:25)
--- NOTE | 2018-08-02 15:13 | PN ---
[facility] Progress Note Note: REPEAT K+ TODAY 3.9. NO TREATMENT WARRANTED AT THIS TIME.
[2018-08-02] MEDS: THIAMINE HCL 100 MG TABLET (FP) PO SCH (22:39)
[2018-08-03] MEDS: PRENATAL VITAMINS W/ FOLIC ACID TABLET (FP) PO SCH (10:32)
[2018-08-03] MEDS: THIAMINE HCL 100 MG TABLET (FP) PO SCH (22:30)
[2018-08-04 07:11] VITALS: PULSE 73
[2018-08-04] MEDS: PRENATAL VITAMINS W/ FOLIC ACID TABLET (FP) PO SCH (10:28)
[2018-08-04] MEDS: THIAMINE HCL 100 MG TABLET (FP) PO SCH (22:13)
[2018-08-05 07:26] VITALS: BP 119/73; TEMP 97.7
--- NOTE | 2018-08-05 10:54 | PN ---
[facility] Progress Note Note: PATIENT REQUESTED TO SIGN OUT AMA HE HAS PERSONAL MATTERS TO ATTEND TO. PATIENT ENCOURAGED TO COMPLETE REHAB AND EXPLAINED RISK FACTORS OF RELAPSE WITH SIGNING OUT BUT PATIENT REFUSED TO STAY IN REHAB. PATIENT IS MEDICALLY STABLE AT THIS TIME AND DENIES SI/HI. DESPITE STAFF INTERVENTIONS PATIENT CONTINUED WITH AMA PROCESS. PATIENT ENCOURAGED TO ATTEND AA TO PREVENT RELAPSE AND TO FOLLOW UP WITH PCP WITHIN 72 HOURS TO CONTINUE MEDICAL MANAGEMENT. Vital Signs Temperature 97.7 F 08/05/18 06:00 Pulse Rate 73 08/05/18 06:00 Respiratory Rate 18 08/05/18 06:00 Blood Pressure 119/73 08/05/18 06:00 O2 Sat by Pulse Oximetry (%) Laboratory Tests 07/30/18 07/31/18 07/31/18 17:03 06:30 06:30 WBC 4.8 RBC 4.82 Hgb 13.1 Hct 39.3 MCV 81.6 MCH 27.3 MCHC 33.4 RDW 18.3 H Plt Count 256 MPV 8.5 Sodium 142 Potassium 5.6 H Chloride 107 Carbon Dioxide 26 Anion Gap 9 BUN 19 H Creatinine 1.3 Creat Clearance w eGFR 55.06 Random Glucose 74 Calcium 9.3 Urine Color Yellow Urine Appearance Clear Urine pH 5.0 Ur Specific [place] 1.021 Urine Protein Negative Urine Glucose (UA) 1+ H Urine Ketones Negative Urine Blood Negative Urine Nitrite Negative Urine Bilirubin Negative Urine Urobilinogen 0.2 Ur Leukocyte Esterase Negative 08/02/18 10:00 WBC RBC Hgb Hct MCV MCH MCHC RDW Plt Count MPV Sodium Potassium 3.9 Chloride Carbon Dioxide Anion Gap BUN Creatinine Creat Clearance w eGFR Random Glucose Calcium Urine Color Urine Appearance Urine pH Ur Specific [place] Urine Protein Urine Glucose (UA) Urine Ketones Urine Blood Urine Nitrite Urine Bilirubin Urine Urobilinogen Ur Leukocyte Esterase Home Medications Medication Instructions Recorded NK [No Known Home Medication] 02/21/17
== END 2018-08-05 10:25 | disposition left against medical advice (07) | DRG 770 ==
LOC: YASAS 08:30 → Y3W 10:50 → Y5N 08-01 14:01 → Y3W 08-01 14:03
PROVIDERS: ADMIT Neuromusculoskeletal Medicine & OMM; ATTEND Neuromusculoskeletal Medicine & OMM
PROC: HZ42ZZZ Group Counseling for Substance Abuse Treatment, Cognitive-Behavioral (ICD-10-PCS; principal; 2018-07-30)
DX: F10.20 Alcohol dependence, uncomplicated (principal); F14.20 Cocaine dependence, uncomplicated; F17.210 Nicotine dependence, cigarettes, uncomplicated
CPT/HCPCS: 36415; 80048; 81003; 84132; 85027

== ENCOUNTER 2018-08-16 08:44 | Inpatient (IN) | payer OTHER ==
[2018-08-16 09:37] VITALS: BMI 29.7
--- NOTE | 2018-08-16 10:10 | HP ---
CIWA Score Nausea/Vomitin-No Nausea/No Vomiting Muscle Tremors: 1-None Visible, but [place] Anxiety: 2 Agitation: 1-Slight > Activity Paroxysmal Sweats: 3 Orientation: 0-Oriented Tacttile Disturbances: 1-Very Mild Itch/Numbness Auditory Disturbances: 2-Mild Harshness/Frighten Visual Disturbances: 0-None Headache: 2-Mild CIWA-Ar Total Score: 12 - Admission Criteria OASAS Guidelines: Admission for Medically Managed Detox: Requires at least one of the followin. CIWA greater than 12 2. Seizures within the past 24 hours 3. Delirium tremens within the past 24 hours 4. Hallucinations within the past 24 hours 5. Acute intervention needed for co occurring medical disorder 6. Acute intervention needed for co occurring psychiatric disorder 7. Severe withdrawal that cannot be handled at a lower level of care (continued vomiting, continued diarrhea, abnormal vital signs) requiring intravenous medication and/or fluids 8. Admission ROS BHS - HPI Allergies/Adverse Reactions: Allergies Allergy/AdvReac Type Severity Reaction Status Date / Time No Known Allergies Allergy Verified 08/16/18 09:09 History of Present Illness: pt here requesting detox from etoh use , reports 12 x 6-pk/day since , latest use yesterday , current symptoms as above , reports tremors if not drinking , starts drinking around 9 am, denies seizures, blackouts , falls while intoxicated . Most recent detox at this facility , left rehab AMA , reports relapse since . cocaine : 50 $/day denies IVDU , first use tobacco: 1 ppd PMHX : denies PSHX : denies PSych : denies meds : denies Shx : lives in senior care , unemployed Exam Limitations: Clinical Condition - Ebola screening Have you traveled outside of the country in the last 21 days: No Have you had contact with anyone from an Ebola affected area: No - Review of Systems Constitutional: See HPI EENT: reports: Other (glasses) Respiratory: reports: No Symptoms reported Cardiac: reports: No Symptoms Reported GI: reports: No Symptoms Reported : reports: Frequency Musculoskeletal: reports: Other (" i have arthritis knees, hip ") Integumentary: reports: No Symptoms Reported Neuro: reports: See HPI Endocrine: reports: No Symptoms Reported Psychiatric: reports: Orientated x3, Agitated, Anxious Patient History - Patient Medical History Hx Anemia: No Hx Asthma: No Hx Chronic Obstructive Pulmonary Disease (COPD): No Hx Cancer: No Hx Cardiac Disorders: No Hx Congestive Heart Failure: No Hx Hypertension: No Hx Hypercholesterolemia: No Hx Pacemaker: No HX Cerebrovascular Accident: No Hx Seizures: No Hx Dementia: No Hx Diabetes: No Hx Gastrointestinal Disorders: No Hx Liver Disease: No Hx Genitourinary Disorders: No Hx Sexually Transmitted Disorders: No Hx Renal Disease (ESRD): No Hx Thyroid Disease: No Hx Human Immunodeficiency Virus (HIV): No (2018 negative) Hx Hepatitis C: No (NEGATIVE HX) Hx Depression: No Hx Suicide Attempt: No Hx Bipolar Disorder: No Hx Schizophrenia: No - Patient Surgical History Past Surgical History: No Hx Neurologic Surgery: No Hx Cataract Extraction: No Hx Cardiac Surgery: No Hx Lung Surgery: No Hx Breast Surgery: No Hx Breast Biopsy: No Hx Abdominal Surgery: No Hx Appendectomy: No Hx Cholecystectomy: No Hx Genitourinary Surgery: No Hx Section: No Hx Orthopedic Surgery: No Anesthesia Reaction: No - PPD History Date: 08/01/18 Results: 0 mm - Smoking Cessation Smoking history: Current every day smoker Have you smoked in the past 12 months: Yes Aproximately how many cigarettes per day: 40 Cigars Per Day: 0 Hx Chewing Tobacco Use: No Initiated information on smoking cessation: No - Substances abused Alcohol Substance route: Oral Frequency: Daily Amount used: 3 six pk beers ( 24 oz cans), 1 pt. rum Age of first use: 16 Date of last use: 08/15/18 Cocaine Substance route: Oral Frequency: Daily Amount used: $60 Age of first use: 36 Date of last use: 08/15/18 Family Disease History - Family Disease History Family Disease History: Diabetes: Mother (), Brother (), Other: Father (no contact) Admission Physical Exam BHS - Vital Signs Vital Signs: Vital Signs - 24 hr 08/16/18 08:55 Temperature 98.2 F Pulse Rate 83 Respiratory 18 Rate Blood Pressure 122/77 - Physical General Appearance: Yes: Disheveled, Mild Distress, Irritable, Anxious HEENTM: Yes: EOMI, Hearing grossly Normal, Normocephalic, Normal Voice, Other ( poor dentition , missing teeth) Respiratory: Yes: Chest Non-Tender, Lungs Clear, Normal Breath Sounds Neck: Yes: No masses,lesions,Nodules, Trachea in good position Cardiology: Yes: Regular Rhythm, Regular Rate, S1, S2 Abdominal: Yes: Non Tender, Soft Back: Yes: Normal Inspection Musculoskeletal: Yes: full range of Motion Extremities: Yes: Normal Range of Motion 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: Yes: Motor Strength 5/5 Integumentary: Yes: Normal Color, Warm - Addiitonal Findings: did not order bloodwork due to recent admission at this facility ( within last 3 weeks ) - Diagnostic (1) Alcohol dependence with uncomplicated withdrawal Current Visit: Yes Status: Acute (2) Cocaine dependence Current Visit: Yes Status: Chronic Qualifiers: Substance use status: uncomplicated Qualified Code(s): F14.20 - Cocaine dependence, uncomplicated (3) Nicotine dependence Current Visit: Yes Status: Chronic Qualifiers: Nicotine product type: cigarettes Breathalyzer - Breathalyzer Breathalyzer: 0 Urine Drug Screen - Test Device Lot number: [id number] Expiration date: 04/05/20 - Control Is test valid?: Yes - Results Drug screen NEGATIVE: No Urine drug screen results: MADHURI-Cocaine Inpatient Rehab Admission - Rehab Decision to Admit Inpatient rehab admission?: No
[2018-08-16] MEDS ORDERED: MAGNESIUM HYDROX 2400MG/30ML ORAL SUSPENSION 30 ML CUP PO PRN (10:17)
[2018-08-16] MEDS ORDERED: MAG HYDROX/AL HYDROX/SIMETH 30 ML UNIT-DOSE CUP PO PRN (10:17)
[2018-08-16] MEDS ORDERED: chlordiazePOXIDE HCL 10 MG CAPSULE PO PRN (10:17)
[2018-08-16] MEDS ORDERED: NICOTINE POLACRILEX 2 MG GUM BUC PRN (10:17)
[2018-08-16] MEDS ORDERED: MELATONIN 5 MG TABLETS PO PRN (10:17)
[2018-08-16] MEDS ORDERED: MENTHOL/PHENOL 1 EACH UD MM PRN (10:17)
[2018-08-16] MEDS ORDERED: IBUPROFEN 400 MG TABLET (FP) PO PRN (10:17)
[2018-08-16] MEDS ORDERED: ACETAMINOPHEN 325 MG TABLET (FP) PO PRN ×2 (10:17)
[2018-08-16] MEDS ORDERED: BISMUTH SUBSALICYLATE 262 MG/15 ML BTL PO PRN (10:17)
[2018-08-16] MEDS ORDERED: MAGNESIUM CITRATE 300 ML BOTTLE PO PRN (10:17)
[2018-08-16] MEDS: chlordiazePOXIDE HCL 25 MG CAPSULE PO SCH ×2 (14:00→22:35)
[2018-08-16 14:08] LABS: HEMATOCRIT 39.4 % (35.4-49); HEMOGLOBIN 13.2 GM/dL (11.7-16.9); MCH 26.9 pg (25.7-33.7); MCHC 33.5 g/dl (32.0-35.9); MEAN CELL VOLUME 80.2 fl (80-96); MEAN PLT VOLUME 8.1 fl (7.5-11.1); PLATELET COUNT 292 K/MM3 (134-434); RBC 4.91 M/mm3 (4.00-5.60); RDW 18.2 % (11.9-15.9); WHITE BLOOD COUNT 4.6 K/mm3 (4.0-10.0)
[2018-08-16 14:28] LABS: ALBUMIN 3.8 g/dl (3.4-5.0); ALK PHOS 107 U/L (45-117); ANION GAP 4 MMOL/L (8-16); BILIRUBIN,TOTAL 0.6 mg/dL (0.2-1); BLOOD UREA NITROGEN 15 mg/dL (7-18); CALCIUM 9.2 mg/dL (8.5-10.1); CHLORIDE 106 mmol/L (98-107); CO2 28 mmol/L (21-32); CREATININE 1.1 mg/dL (0.55-1.3); GLUCOSE,RANDOM 125 mg/dL (74-106); POTASSIUM 4.1 mmol/L (3.5-5.1); SGOT/AST 34 U/L (15-37); SGPT/ALT 33 U/L (13-61); SODIUM 137 mmol/L (136-145); TOT PROT 7.3 g/dl (6.4-8.2)
[2018-08-16] MEDS: THIAMINE HCL 100 MG TABLET (FP) PO SCH (22:35)
[2018-08-17] MEDS: chlordiazePOXIDE HCL 25 MG CAPSULE PO SCH (05:51)
[2018-08-17] MEDS: PRENATAL VITAMINS W/ FOLIC ACID TABLET (FP) PO SCH (09:46)
--- NOTE | 2018-08-17 11:08 | PN ---
S CIWA - CIWA Score Nausea/Vomitin Muscle Tremors: 2 Anxiety: 1-Mildly Anxious Agitation: 2 Paroxysmal Sweats: 2 Orientation: 0-Oriented Tacttile Disturbances: 1-Very Mild Itch/Numbness Auditory Disturbances: 0-None Visual Disturbances: 0-None Headache: 1-Very Mild CIWA-Ar Total Score: 11 S Progress Note (SOAP) Subjective: Mild shakes and sweats, back pain and interrupted sleep Objective: 08/17/18 11:07 Last Vital Signs Temp Pulse Resp BP Pulse Ox 97.9 F 77 18 106/51 L 08/17/18 10:16 08/17/18 10:16 08/17/18 10:16 08/17/18 10:16 Laboratory Last Values WBC 4.6 K/mm3 (4.0-10.0) 08/16/18 10:48 RBC 4.91 M/mm3 (4.00-5.60) 08/16/18 10:48 Hgb 13.2 GM/dL (11.7-16.9) 08/16/18 10:48 Hct 39.4 % (35.4-49) 08/16/18 10:48 MCV 80.2 fl (80-96) 08/16/18 10:48 MCH 26.9 pg (25.7-33.7) 08/16/18 10:48 MCHC 33.5 g/dl (32.0-35.9) 08/16/18 10:48 RDW 18.2 % (11.9-15.9) H 08/16/18 10:48 Plt Count 292 K/MM3 (134-434) 08/16/18 10:48 MPV 8.1 fl (7.5-11.1) 08/16/18 10:48 Sodium 137 mmol/L (136-145) 08/16/18 10:48 Potassium 4.1 mmol/L (3.5-5.1) 08/16/18 10:48 Chloride 106 mmol/L (98-107) 08/16/18 10:48 Carbon Dioxide 28 mmol/L (21-32) 08/16/18 10:48 Anion Gap 4 MMOL/L (8-16) L 08/16/18 10:48 BUN 15 mg/dL (7-18) 08/16/18 10:48 Creatinine 1.1 mg/dL (0.55-1.3) 08/16/18 10:48 Creat Clearance w eGFR 66.77 (>60) 08/16/18 10:48 Random Glucose 125 mg/dL (74-106) H 08/16/18 10:48 Calcium 9.2 mg/dL (8.5-10.1) 08/16/18 10:48 Total Bilirubin 0.6 mg/dL (0.2-1) 08/16/18 10:48 AST 34 U/L (15-37) 08/16/18 10:48 ALT 33 U/L (13-61) 08/16/18 10:48 Alkaline Phosphatase 107 U/L (45-117) 08/16/18 10:48 Total Protein 7.3 g/dl (6.4-8.2) 08/16/18 10:48 Albumin 3.8 g/dl (3.4-5.0) 08/16/18 10:48 RPR Titer Nonreactive (NONREACTIVE) 08/16/18 10:48 Labs noted Assessment: 08/17/18 11:07 Withdrawal sx Plan: Continue detox
[2018-08-17] MEDS: chlordiazePOXIDE 5 MG CAPSULE PO SCH ×2 (13:29→21:50)
[2018-08-17] MEDS: THIAMINE HCL 100 MG TABLET (FP) PO SCH (22:41)
[2018-08-18] MEDS: chlordiazePOXIDE 5 MG CAPSULE PO SCH (06:22)
[2018-08-18] MEDS: PRENATAL VITAMINS W/ FOLIC ACID TABLET (FP) PO SCH (10:11)
--- NOTE | 2018-08-18 10:51 | PN ---
[facility] CIWA - CIWA Score Nausea/Vomitin-No Nausea/No Vomiting Muscle Tremors: None Anxiety: 1-Mildly Anxious Agitation: 1-Slight > Activity Paroxysmal Sweats: No Perspiration Orientation: 0-Oriented Tacttile Disturbances: 0-None Auditory Disturbances: 0-None Visual Disturbances: 0-None Headache: 0-None Present CIWA-Ar Total Score: 2 BHS Progress Note (SOAP) Subjective: PATIENT CONTINUES WITH ETOH DETOX, C/O MILD ANXIETY AND INTERRUPTED SLEEP. Objective: 08/18/18 10:49 ALERT AND ORIENTED X 3 SKIN WARM AND DRY EXT NO VISIBLE TREMORS MILD ANXIOUS Assessment: 08/18/18 10:50 WITHDRAWAL SX Plan: CONTINUE DETOX ENCOURAGE FLUIDS CONTINUE TO MONITOR CLINICALLY
[2018-08-18] MEDS: chlordiazePOXIDE HCL 10 MG CAPSULE PO SCH ×2 (12:06→23:05)
[2018-08-18] MEDS ORDERED: chlordiazePOXIDE HCL 10 MG CAPSULE PO PRN (13:00)
[2018-08-18] MEDS: THIAMINE HCL 100 MG TABLET (FP) PO SCH (23:05)
[2018-08-19] MEDS: chlordiazePOXIDE HCL 10 MG CAPSULE PO SCH (06:55)
[2018-08-19 09:42] VITALS: BP 146/77; PULSE 93; TEMP 97.7
--- NOTE | 2018-08-19 14:20 | DS ---
[facility] Detox Discharge Summary Admission Date: 08/16/18 Discharge Date: 08/19/18 - History Present History: Alcohol Dependence, Cocaine Dependence Additional Comments: PATIENT RETURNING TO [facility] OUTPATIENT SUBSTANCE USE TREATMENT PROGRAM ( [place], [place]), WHERE HE HAS PREVIOUSLY BEEN A CLIENT, FOR AFTERCARE. PATIENT WAS DISCHARGED FROM DETOX UNIT IN STABLE MEDICAL CONDITION. Pertinent Past History: Nicotine Dependence. - Physical Exam Results Vital Signs: Vital Signs Temperature 97.7 F 08/19/18 09:40 Pulse Rate 93 H 08/19/18 09:40 Respiratory Rate 18 08/19/18 09:40 Blood Pressure 146/77 08/19/18 09:40 O2 Sat by Pulse Oximetry (%) Pertinent Admission Physical Exam Findings: WITHDRAWAL SYMPTOMS. Laboratory Tests 08/16/18 08/16/18 08/16/18 10:48 10:48 10:48 WBC 4.6 RBC 4.91 Hgb 13.2 Hct 39.4 MCV 80.2 MCH 26.9 MCHC 33.5 RDW 18.2 H Plt Count 292 MPV 8.1 Sodium 137 Potassium 4.1 Chloride 106 Carbon Dioxide 28 Anion Gap 4 L BUN 15 Creatinine 1.1 Creat Clearance w eGFR 66.77 Random Glucose 125 H Calcium 9.2 Total Bilirubin 0.6 AST 34 ALT 33 Alkaline Phosphatase 107 Total Protein 7.3 Albumin 3.8 RPR Titer Nonreactive LABS NOTED. - Treatment Hospital Course: Detox Protocol Followed, Detoxed Safely, Responded well, Discharged Condition Good Patient has Accepted a Rehab Referral to: PT. RETURNING TO [facility] SUBSTANCE USE TREATMENT OP PROGRAM ([place], [place]) - Medication Discharge Medications: Ambulatory Orders NK [No Known Home Medication] 02/21/17 - Diagnosis (1) Alcohol dependence with uncomplicated withdrawal Status: Acute (2) Cocaine dependence, uncomplicated Status: Chronic (3) Nicotine dependence Status: Chronic Qualifiers: Nicotine product type: cigarettes Substance use status: uncomplicated Qualified Code(s): F17.210 - Nicotine dependence, cigarettes, uncomplicated - AMA Did Patient Leave Against Medical Advice: No
== END 2018-08-19 09:37 | disposition home or self-care (01) | DRG 774 ==
LOC: YASAS 08:44 → Y6N 10:41
PROVIDERS: ADMIT Surgery; ATTEND Surgery
PROC: HZ2ZZZZ Detoxification Services for Substance Abuse Treatment (ICD-10-PCS; principal; 2018-08-16)
DX: F10.230 Alcohol dependence with withdrawal, uncomplicated (principal); F14.20 Cocaine dependence, uncomplicated; F17.210 Nicotine dependence, cigarettes, uncomplicated; Z59.0 Homelessness
CPT/HCPCS: 36415; 80053; 85027; 86593

== ENCOUNTER 2018-09-16 09:28 | Inpatient (IN) | payer OTHER ==
[2018-09-16 10:01] VITALS: BMI 28.7
--- NOTE | 2018-09-16 10:51 | HP ---
CIWA Score Nausea/Vomitin Muscle Tremors: 2 Anxiety: 2 Agitation: 2 Paroxysmal Sweats: 1-Minimal Palms Moist Orientation: 0-Oriented Tacttile Disturbances: 1-Very Mild Itch/Numbness Auditory Disturbances: 1-Very Mild Visual Disturbances: 0-None Headache: 2-Mild CIWA-Ar Total Score: 13 - Admission Criteria OASAS Guidelines: Admission for Medically Managed Detox: Requires at least one of the followin. CIWA greater than 12 2. Seizures within the past 24 hours 3. Delirium tremens within the past 24 hours 4. Hallucinations within the past 24 hours 5. Acute intervention needed for co occurring medical disorder 6. Acute intervention needed for co occurring psychiatric disorder 7. Severe withdrawal that cannot be handled at a lower level of care (continued vomiting, continued diarrhea, abnormal vital signs) requiring intravenous medication and/or fluids 8. Admission ROS BHS - HPI Chief Complaint: i need help to stop drinking alcohol and crack Allergies/Adverse Reactions: Allergies Allergy/AdvReac Type Severity Reaction Status Date / Time No Known Allergies Allergy Verified 09/16/18 09:52 History of Present Illness: this 68 years old male with alcohol and crack dependence,seeking detox, withdrawal symptom, multiple admissions in detox,last C 08/16/18 to 08/19/18 syncope alcohol related nicotine dependence 2 packs/day,does not want nicotine replacement longest sobriety 8 months plan for [facility] [employer] [facility] residential - Ebola screening Have you traveled outside of the country in the last 21 days: No Have you had contact with anyone from an Ebola affected area: No Do you have a fever: No - Review of Systems Constitutional: Loss of Appetite, Malaise, Night Sweats, Changes in sleep, Weakness EENT: reports: Nose Congestion Respiratory: reports: No Symptoms reported Cardiac: reports: No Symptoms Reported GI: reports: Nausea, Poor Appetite, Abdominal cramping : reports: No Symptoms Reported Musculoskeletal: reports: Back Pain, Muscle Pain Integumentary: reports: Dryness Neuro: reports: Headache, Tremors Endocrine: reports: No Symptoms Reported Hematology: reports: No Symptoms Reported Psychiatric: reports: No Sypmtoms Reported, Judgement Intact, Mood/Affect Appropiate, Orientated x3 Other Systems: Reviewed and Negative Patient History - Patient Medical History Hx Anemia: No Hx Asthma: No Hx Chronic Obstructive Pulmonary Disease (COPD): No Hx Cancer: No Hx Cardiac Disorders: No Hx Congestive Heart Failure: No Hx Hypertension: No Hx Hypercholesterolemia: No Hx Pacemaker: No HX Cerebrovascular Accident: No Hx Seizures: No Hx Dementia: No Hx Diabetes: No Hx Gastrointestinal Disorders: No Hx Liver Disease: No Hx Genitourinary Disorders: No Hx Sexually Transmitted Disorders: No Hx Renal Disease (ESRD): No Hx Thyroid Disease: No Hx Human Immunodeficiency Virus (HIV): No (2018 negative) Hx Hepatitis C: No (NEGATIVE HX) Hx Depression: No Hx Suicide Attempt: No Hx Bipolar Disorder: No Hx Schizophrenia: No Other Medical History: no suicidal,no homicidal - Patient Surgical History Past Surgical History: No Hx Neurologic Surgery: No Hx Cataract Extraction: No Hx Cardiac Surgery: No Hx Lung Surgery: No Hx Breast Surgery: No Hx Breast Biopsy: No Hx Abdominal Surgery: No Hx Appendectomy: No Hx Cholecystectomy: No Hx Genitourinary Surgery: No Hx Section: No Hx Orthopedic Surgery: No Anesthesia Reaction: No - PPD History Previous Implant?: Yes Documented Results: Negative w/proof Implanted On Prior [facility] Admission?: Yes Date: 08/01/18 Results: 0 mm PPD to be Administered?: No - Smoking Cessation Smoking history: Current every day smoker Have you smoked in the past 12 months: Yes Aproximately how many cigarettes per day: 40 Cigars Per Day: 0 Hx Chewing Tobacco Use: No Initiated information on smoking cessation: Yes 'Breaking Loose' booklet given: 09/16/18 - Substance & Tx. History Hx Alcohol Use: Yes Hx Substance Use: Yes Substance Use Type: Alcohol, Cocaine Hx Substance Use Treatment: Yes ([facility] 08/16/18 to 08/19/18) - Substances abused Alcohol Substance route: Oral Frequency: Daily Amount used: 3 six pk beers ( 24 oz cans), 1 pt. rum Age of first use: 16 Date of last use: 09/15/18 Cocaine Substance route: Smoking Frequency: Daily Amount used: $100 Age of first use: 16 Date of last use: 09/15/18 Crack Substance route: Smoking Frequency: Daily Amount used: $100 Age of first use: 16 Date of last use: 09/15/18 Family Disease History - Family Disease History Family Disease History: Diabetes: Mother (), Brother (), Other: Father (no contact) Admission Physical Exam BHS - Vital Signs Vital Signs: Vital Signs - 24 hr 09/16/18 09/16/18 09:51 10:42 Temperature 97.7 F 97.7 F Pulse Rate 75 75 Respiratory 20 20 Rate Blood Pressure 109/71 109/71 - Physical General Appearance: Yes: Moderate Distress, Tremorous, Irritable, Sweating HEENTM: Yes: Normal ENT Inspection, DAVIS, Pharynx Normal Respiratory: Yes: Lungs Clear, Normal Breath Sounds, No Respiratory Distress Neck: Yes: Within Normal Limits, Supple, Trachea in good position Breast: Yes: Within Normal Limits Cardiology: Yes: Within Normal Limits, Regular Rhythm, Regular Rate, S1, S2 Abdominal: Yes: Within Normal Limits, Normal Bowel Sounds, Non Tender, Flat, Soft Genitourinary: Yes: Within Normal Limits Back: Yes: Muscle Spasm Musculoskeletal: Yes: Back pain, Muscle Pain Extremities: Yes: Within Normal Limits, Normal Range of Motion, Tremors 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: Yes: behavioral services tech II-XII NML intact, Fully Oriented, Alert, Motor Strength 5/5 Integumentary: Yes: Dry Lymphatic: Yes: Within Normal Limits - Diagnostic (1) Alcohol dependence with uncomplicated withdrawal Current Visit: No Status: Acute (2) Syncope Current Visit: No Status: Acute Qualifiers: Syncope type: unspecified Qualified Code(s): R55 - Syncope and collapse (3) Weight loss Current Visit: No Status: Acute (4) Cocaine dependence, uncomplicated Current Visit: No Status: Chronic Cleared for Admission S - Detox or Rehab [facility] Level of Care: Medically Managed Detox Regimen/Protocol: Librium Breathalyzer - Breathalyzer Breathalyzer: 0 Urine Drug Screen - Test Device Lot number: [id number] Expiration date: 06/06/20 - Control Is test valid?: Yes - Results Drug screen NEGATIVE: No Urine drug screen results: MADHURI-Cocaine Inpatient Rehab Admission - Rehab Decision to Admit Inpatient rehab admission?: No
[2018-09-16] MEDS ORDERED: MAGNESIUM HYDROX 2400MG/30ML ORAL SUSPENSION 30 ML CUP PO PRN (10:57)
[2018-09-16] MEDS ORDERED: MELATONIN 5 MG TABLETS PO PRN (10:57)
[2018-09-16] MEDS ORDERED: METHOCARBAMOL 500 MG TABLET PO PRN (10:57)
[2018-09-16] MEDS ORDERED: hydrOXYzine PAMOATE 25 MG CAPSULE (FP) PO PRN (10:57)
[2018-09-16] MEDS ORDERED: ACETAMINOPHEN 325 MG TABLET (FP) PO PRN ×2 (10:57)
[2018-09-16] MEDS ORDERED: MENTHOL/PHENOL 1 EACH UD MM PRN (10:57)
[2018-09-16] MEDS ORDERED: MAG HYDROX/AL HYDROX/SIMETH 30 ML UNIT-DOSE CUP PO PRN (10:57)
[2018-09-16] MEDS ORDERED: chlordiazePOXIDE HCL 25 MG CAPSULE PO PRN (10:57)
[2018-09-16] MEDS ORDERED: BISMUTH SUBSALICYLATE 262 MG/15 ML BTL PO PRN (10:57)
[2018-09-16] MEDS ORDERED: MAGNESIUM CITRATE 300 ML BOTTLE PO PRN (10:57)
[2018-09-16 16:56] LABS: HEMATOCRIT 41.4 % (35.4-49); HEMOGLOBIN 13.6 GM/dL (11.7-16.9); MCH 26.9 pg (25.7-33.7); MCHC 32.8 g/dl (32.0-35.9); MEAN CELL VOLUME 81.8 fl (80-96); MEAN PLT VOLUME 8.3 fl (7.5-11.1); PLATELET COUNT 247 K/MM3 (134-434); RBC 5.07 M/mm3 (4.00-5.60); RDW 17.7 % (11.9-15.9); WHITE BLOOD COUNT 4.7 K/mm3 (4.0-10.0)
[2018-09-16 17:15] LABS: ALBUMIN 3.8 g/dl (3.4-5.0); BILIRUBIN,TOTAL 0.5 mg/dL (0.2-1); CALCIUM 9.2 mg/dL (8.5-10.1); POTASSIUM 4.8 mmol/L (3.5-5.1); TOT PROT 7.2 g/dl (6.4-8.2)
[2018-09-16] MEDS: chlordiazePOXIDE HCL 25 MG CAPSULE PO SCH ×2 (17:34→22:07)
[2018-09-16] MEDS: THIAMINE HCL 100 MG TABLET (FP) PO SCH (22:07)
[2018-09-17] MEDS: chlordiazePOXIDE HCL 25 MG CAPSULE PO SCH ×4 (05:26→21:59)
--- NOTE | 2018-09-17 09:34 | PN ---
S CIWA - CIWA Score Nausea/Vomitin-Mild Nausea/No Vomiting Muscle Tremors: 2 Anxiety: 2 Agitation: 2 Paroxysmal Sweats: 1-Minimal Palms Moist Orientation: 0-Oriented Tacttile Disturbances: 1-Very Mild Itch/Numbness Auditory Disturbances: 0-None Visual Disturbances: 0-None Headache: 1-Very Mild CIWA-Ar Total Score: 10 S Progress Note (SOAP) Subjective: doing ok with librium alcohol detox regimen mild headaches otherwise feeling fine Objective: 09/17/18 09:35 Vital Signs Temperature 96 F L 09/17/18 09:01 Pulse Rate 71 09/17/18 09:01 Respiratory Rate 20 09/17/18 09:01 Blood Pressure 107/59 L 09/17/18 09:01 O2 Sat by Pulse Oximetry (%) Laboratory Last Values WBC 4.7 K/mm3 (4.0-10.0) 09/16/18 11:20 RBC 5.07 M/mm3 (4.00-5.60) 09/16/18 11:20 Hgb 13.6 GM/dL (11.7-16.9) 09/16/18 11:20 Hct 41.4 % (35.4-49) 09/16/18 11:20 MCV 81.8 fl (80-96) 09/16/18 11:20 MCH 26.9 pg (25.7-33.7) 09/16/18 11:20 MCHC 32.8 g/dl (32.0-35.9) 09/16/18 11:20 RDW 17.7 % (11.9-15.9) H 09/16/18 11:20 Plt Count 247 K/MM3 (134-434) 09/16/18 11:20 MPV 8.3 fl (7.5-11.1) 09/16/18 11:20 Sodium 138 mmol/L (136-145) 09/16/18 11:20 Potassium 4.8 mmol/L (3.5-5.1) 09/16/18 11:20 Chloride 105 mmol/L (98-107) 09/16/18 11:20 Carbon Dioxide 29 mmol/L (21-32) 09/16/18 11:20 Anion Gap 4 MMOL/L (8-16) L 09/16/18 11:20 BUN 14 mg/dL (7-18) 09/16/18 11:20 Creatinine 1.0 mg/dL (0.55-1.3) 09/16/18 11:20 Est GFR (CKD-EPI)AfAm 89.86 09/16/18 11:20 Est GFR (CKD-EPI)NonAf 77.54 09/16/18 11:20 Random Glucose 80 mg/dL (74-106) 09/16/18 11:20 Calcium 9.2 mg/dL (8.5-10.1) 09/16/18 11:20 Total Bilirubin 0.5 mg/dL (0.2-1) 09/16/18 11:20 AST 33 U/L (15-37) 09/16/18 11:20 ALT 31 U/L (13-61) 09/16/18 11:20 Alkaline Phosphatase 96 U/L (45-117) 09/16/18 11:20 Total Protein 7.2 g/dl (6.4-8.2) 09/16/18 11:20 Albumin 3.8 g/dl (3.4-5.0) 09/16/18 11:20 Urine Color Yellow 09/16/18 18:40 Urine Appearance Clear 09/16/18 18:40 Urine pH Cancelled 09/16/18 15:20 Urine pH (Auto) 6.0 (5.0-8.0) 09/16/18 18:40 Ur Specific [place] Cancelled 09/16/18 15:20 Specific [place] (Auto) 1.015 (1.010-1.035) 09/16/18 18:40 Urine Protein Cancelled 09/16/18 15:20 Urine Protein (Auto) Negative (NEGATIVE) 09/16/18 18:40 Urine Glucose (UA) Cancelled 09/16/18 15:20 Glucose (UA)(Auto) Negative (NEGATIVE) 09/16/18 18:40 Urine Ketones Cancelled 09/16/18 15:20 Urine Ketones (Auto) Negative (NEGATIVE) 09/16/18 18:40 Urine Blood Cancelled 09/16/18 15:20 Urine Blood (Auto) Negative (NEGATIVE) 09/16/18 18:40 Urine Nitrite Cancelled 09/16/18 15:20 Urine Nitrite (Auto) Negative (NEGATIVE) 09/16/18 18:40 Urine Bilirubin Negative (<2.0 mg/dL) 09/16/18 18:40 Urine Urobilinogen Cancelled 09/16/18 15:20 Urine Urobilinogen (Auto) 0.2 mg/dL (0.2-1.0) 09/16/18 18:40 Ur Leukocyte Esterase Cancelled 09/16/18 15:20 Leukocyte Esterase (Auto) Negative (NEGATIVE) 09/16/18 18:40 Urine WBC (Auto) Cancelled 09/16/18 15:20 Urine RBC (Auto) Cancelled 09/16/18 15:20 Urine Casts (Auto) Cancelled 09/16/18 15:20 U Pathogenic Cast Auto Cancelled 09/16/18 15:20 U Epithel Cells (Auto) Cancelled 09/16/18 15:20 U Sm Round Cell (Auto) Cancelled 09/16/18 15:20 Urine Crystals (Auto) Cancelled 09/16/18 15:20 Urine Bacteria (Auto) Cancelled 09/16/18 15:20 Urine Yeast (Auto) Cancelled 09/16/18 15:20 RPR Titer Nonreactive (NONREACTIVE) 09/16/18 11:20 lab noted Assessment: 09/17/18 09:35 alcohol withdrawal sx Plan: continue detox
[2018-09-17] MEDS: PRENATAL VITAMINS W/ FOLIC ACID TABLET (FP) PO SCH (10:52)
[2018-09-17] MEDS: THIAMINE HCL 100 MG TABLET (FP) PO SCH (21:59)
[2018-09-18] MEDS: chlordiazePOXIDE HCL 25 MG CAPSULE PO SCH ×2 (06:11→11:09)
[2018-09-18] MEDS: IBUPROFEN 400 MG TABLET (FP) PO PRN (06:51)
[2018-09-18] MEDS: PRENATAL VITAMINS W/ FOLIC ACID TABLET (FP) PO SCH (11:11)
--- NOTE | 2018-09-18 14:56 | PN ---
S CIWA - CIWA Score Nausea/Vomitin-No Nausea/No Vomiting Muscle Tremors: 2 Anxiety: 2 Agitation: 1-Slight > Activity Paroxysmal Sweats: No Perspiration Orientation: 0-Oriented Tacttile Disturbances: 0-None Auditory Disturbances: 0-None Visual Disturbances: 0-None Headache: 1-Very Mild CIWA-Ar Total Score: 6 BHS Progress Note (SOAP) Subjective: patient preferring supportive therapy received tylenal for headache Objective: 09/18/18 14:55 Vital Signs Temperature 97 F L 09/18/18 13:17 Pulse Rate 74 09/18/18 13:17 Respiratory Rate 18 09/18/18 13:17 Blood Pressure 123/74 09/18/18 13:17 O2 Sat by Pulse Oximetry (%) Laboratory Last Values WBC 4.7 K/mm3 (4.0-10.0) 09/16/18 11:20 RBC 5.07 M/mm3 (4.00-5.60) 09/16/18 11:20 Hgb 13.6 GM/dL (11.7-16.9) 09/16/18 11:20 Hct 41.4 % (35.4-49) 09/16/18 11:20 MCV 81.8 fl (80-96) 09/16/18 11:20 MCH 26.9 pg (25.7-33.7) 09/16/18 11:20 MCHC 32.8 g/dl (32.0-35.9) 09/16/18 11:20 RDW 17.7 % (11.9-15.9) H 09/16/18 11:20 Plt Count 247 K/MM3 (134-434) 09/16/18 11:20 MPV 8.3 fl (7.5-11.1) 09/16/18 11:20 Sodium 138 mmol/L (136-145) 09/16/18 11:20 Potassium 4.8 mmol/L (3.5-5.1) 09/16/18 11:20 Chloride 105 mmol/L (98-107) 09/16/18 11:20 Carbon Dioxide 29 mmol/L (21-32) 09/16/18 11:20 Anion Gap 4 MMOL/L (8-16) L 09/16/18 11:20 BUN 14 mg/dL (7-18) 09/16/18 11:20 Creatinine 1.0 mg/dL (0.55-1.3) 09/16/18 11:20 Est GFR (CKD-EPI)AfAm 89.86 09/16/18 11:20 Est GFR (CKD-EPI)NonAf 77.54 09/16/18 11:20 Random Glucose 80 mg/dL (74-106) 09/16/18 11:20 Calcium 9.2 mg/dL (8.5-10.1) 09/16/18 11:20 Total Bilirubin 0.5 mg/dL (0.2-1) 09/16/18 11:20 AST 33 U/L (15-37) 09/16/18 11:20 ALT 31 U/L (13-61) 09/16/18 11:20 Alkaline Phosphatase 96 U/L (45-117) 09/16/18 11:20 Total Protein 7.2 g/dl (6.4-8.2) 09/16/18 11:20 Albumin 3.8 g/dl (3.4-5.0) 09/16/18 11:20 Urine Color Yellow 09/16/18 18:40 Urine Appearance Clear 09/16/18 18:40 Urine pH Cancelled 09/16/18 15:20 Urine pH (Auto) 6.0 (5.0-8.0) 09/16/18 18:40 Ur Specific [place] Cancelled 09/16/18 15:20 Specific [place] (Auto) 1.015 (1.010-1.035) 09/16/18 18:40 Urine Protein Cancelled 09/16/18 15:20 Urine Protein (Auto) Negative (NEGATIVE) 09/16/18 18:40 Urine Glucose (UA) Cancelled 09/16/18 15:20 Glucose (UA)(Auto) Negative (NEGATIVE) 09/16/18 18:40 Urine Ketones Cancelled 09/16/18 15:20 Urine Ketones (Auto) Negative (NEGATIVE) 09/16/18 18:40 Urine Blood Cancelled 09/16/18 15:20 Urine Blood (Auto) Negative (NEGATIVE) 09/16/18 18:40 Urine Nitrite Cancelled 09/16/18 15:20 Urine Nitrite (Auto) Negative (NEGATIVE) 09/16/18 18:40 Urine Bilirubin Negative (<2.0 mg/dL) 09/16/18 18:40 Urine Urobilinogen Cancelled 09/16/18 15:20 Urine Urobilinogen (Auto) 0.2 mg/dL (0.2-1.0) 09/16/18 18:40 Ur Leukocyte Esterase Cancelled 09/16/18 15:20 Leukocyte Esterase (Auto) Negative (NEGATIVE) 09/16/18 18:40 Urine WBC (Auto) Cancelled 09/16/18 15:20 Urine RBC (Auto) Cancelled 09/16/18 15:20 Urine Casts (Auto) Cancelled 09/16/18 15:20 U Pathogenic Cast Auto Cancelled 09/16/18 15:20 U Epithel Cells (Auto) Cancelled 09/16/18 15:20 U Sm Round Cell (Auto) Cancelled 09/16/18 15:20 Urine Crystals (Auto) Cancelled 09/16/18 15:20 Urine Bacteria (Auto) Cancelled 09/16/18 15:20 Urine Yeast (Auto) Cancelled 09/16/18 15:20 RPR Titer Nonreactive (NONREACTIVE) 09/16/18 11:20 lab noted Assessment: 09/18/18 14:56 withdrawal sx Plan: continue detox
[2018-09-18] MEDS ORDERED: chlordiazePOXIDE HCL 10 MG CAPSULE PO PRN (17:00)
[2018-09-18] MEDS: chlordiazePOXIDE HCL 10 MG CAPSULE PO SCH ×2 (17:21→23:08)
[2018-09-18] MEDS: THIAMINE HCL 100 MG TABLET (FP) PO SCH (23:08)
[2018-09-19] MEDS: IBUPROFEN 400 MG TABLET (FP) PO PRN (05:42)
[2018-09-19] MEDS: chlordiazePOXIDE HCL 10 MG CAPSULE PO SCH ×3 (05:43→19:14)
[2018-09-19] MEDS: PRENATAL VITAMINS W/ FOLIC ACID TABLET (FP) PO SCH (09:34)
--- NOTE | 2018-09-19 15:23 | PN ---
S CIWA - CIWA Score Nausea/Vomitin-No Nausea/No Vomiting Muscle Tremors: 1-None Visible, but [place] Anxiety: 1-Mildly Anxious Agitation: 1-Slight > Activity Paroxysmal Sweats: No Perspiration Orientation: 0-Oriented Tacttile Disturbances: 0-None Auditory Disturbances: 0-None Visual Disturbances: 0-None Headache: 0-None Present CIWA-Ar Total Score: 3 BHS Progress Note (SOAP) Subjective: feeling better today discuss aftercare with staff Objective: 09/19/18 15:23 Vital Signs Temperature 99.2 F 09/19/18 14:15 Pulse Rate 85 09/19/18 14:15 Respiratory Rate 18 09/19/18 14:15 Blood Pressure 107/63 09/19/18 14:15 O2 Sat by Pulse Oximetry (%) Laboratory Last Values WBC 4.7 K/mm3 (4.0-10.0) 09/16/18 11:20 RBC 5.07 M/mm3 (4.00-5.60) 09/16/18 11:20 Hgb 13.6 GM/dL (11.7-16.9) 09/16/18 11:20 Hct 41.4 % (35.4-49) 09/16/18 11:20 MCV 81.8 fl (80-96) 09/16/18 11:20 MCH 26.9 pg (25.7-33.7) 09/16/18 11:20 MCHC 32.8 g/dl (32.0-35.9) 09/16/18 11:20 RDW 17.7 % (11.9-15.9) H 09/16/18 11:20 Plt Count 247 K/MM3 (134-434) 09/16/18 11:20 MPV 8.3 fl (7.5-11.1) 09/16/18 11:20 Sodium 138 mmol/L (136-145) 09/16/18 11:20 Potassium 4.8 mmol/L (3.5-5.1) 09/16/18 11:20 Chloride 105 mmol/L (98-107) 09/16/18 11:20 Carbon Dioxide 29 mmol/L (21-32) 09/16/18 11:20 Anion Gap 4 MMOL/L (8-16) L 09/16/18 11:20 BUN 14 mg/dL (7-18) 09/16/18 11:20 Creatinine 1.0 mg/dL (0.55-1.3) 09/16/18 11:20 Est GFR (CKD-EPI)AfAm 89.86 09/16/18 11:20 Est GFR (CKD-EPI)NonAf 77.54 09/16/18 11:20 Random Glucose 80 mg/dL (74-106) 09/16/18 11:20 Calcium 9.2 mg/dL (8.5-10.1) 09/16/18 11:20 Total Bilirubin 0.5 mg/dL (0.2-1) 09/16/18 11:20 AST 33 U/L (15-37) 09/16/18 11:20 ALT 31 U/L (13-61) 09/16/18 11:20 Alkaline Phosphatase 96 U/L (45-117) 09/16/18 11:20 Total Protein 7.2 g/dl (6.4-8.2) 09/16/18 11:20 Albumin 3.8 g/dl (3.4-5.0) 09/16/18 11:20 Urine Color Yellow 09/16/18 18:40 Urine Appearance Clear 09/16/18 18:40 Urine pH Cancelled 09/16/18 15:20 Urine pH (Auto) 6.0 (5.0-8.0) 09/16/18 18:40 Ur Specific [place] Cancelled 09/16/18 15:20 Specific [place] (Auto) 1.015 (1.010-1.035) 09/16/18 18:40 Urine Protein Cancelled 09/16/18 15:20 Urine Protein (Auto) Negative (NEGATIVE) 09/16/18 18:40 Urine Glucose (UA) Cancelled 09/16/18 15:20 Glucose (UA)(Auto) Negative (NEGATIVE) 09/16/18 18:40 Urine Ketones Cancelled 09/16/18 15:20 Urine Ketones (Auto) Negative (NEGATIVE) 09/16/18 18:40 Urine Blood Cancelled 09/16/18 15:20 Urine Blood (Auto) Negative (NEGATIVE) 09/16/18 18:40 Urine Nitrite Cancelled 09/16/18 15:20 Urine Nitrite (Auto) Negative (NEGATIVE) 09/16/18 18:40 Urine Bilirubin Negative (<2.0 mg/dL) 09/16/18 18:40 Urine Urobilinogen Cancelled 09/16/18 15:20 Urine Urobilinogen (Auto) 0.2 mg/dL (0.2-1.0) 09/16/18 18:40 Ur Leukocyte Esterase Cancelled 09/16/18 15:20 Leukocyte Esterase (Auto) Negative (NEGATIVE) 09/16/18 18:40 Urine WBC (Auto) Cancelled 09/16/18 15:20 Urine RBC (Auto) Cancelled 09/16/18 15:20 Urine Casts (Auto) Cancelled 09/16/18 15:20 U Pathogenic Cast Auto Cancelled 09/16/18 15:20 U Epithel Cells (Auto) Cancelled 09/16/18 15:20 U Sm Round Cell (Auto) Cancelled 09/16/18 15:20 Urine Crystals (Auto) Cancelled 09/16/18 15:20 Urine Bacteria (Auto) Cancelled 09/16/18 15:20 Urine Yeast (Auto) Cancelled 09/16/18 15:20 RPR Titer Nonreactive (NONREACTIVE) 09/16/18 11:20 lab noted Assessment: 09/19/18 15:24 alcohol withdrawal sx Plan: continue detox
[2018-09-19] MEDS: THIAMINE HCL 100 MG TABLET (FP) PO SCH (22:32)
[2018-09-20] MEDS: chlordiazePOXIDE HCL 10 MG CAPSULE PO SCH (05:22)
[2018-09-20 06:15] VITALS: BP 108/66; PULSE 73; TEMP 97.6
--- NOTE | 2018-09-20 18:45 | DS ---
[facility] Detox Discharge Summary Admission Date: 09/16/18 Discharge Date: 09/20/18 - History Present History: Alcohol Dependence, Cocaine Dependence Additional Comments: PATIENT INITIALLY INTENT ON GOING ON TO [facility] ([place], [place]) FOR AFTERCARE. HOWEVER, PATIENT DECLINED REHAB REFERRAL BEFORE DISCHARGE FORM DETOX UNIT AND ELECTED TO GO HOME INSTEAD. PATIENT ADVISED TO CONSIDER LOCAL 12-STEP / NA / AA OUTPATIENT SUPPORT GROUP PROGRAM FOR AFTERCARE. PATIENT WAS DISCHARGED FROM DETOX UNIT IN STABLE MEDICAL CONDITION. Pertinent Past History: Nicotine Dependence, History Of Syncope, Weight Loss. - Physical Exam Results Vital Signs: Vital Signs Temperature 97.6 F 09/20/18 06:13 Pulse Rate 73 09/20/18 06:13 Respiratory Rate 18 09/20/18 06:13 Blood Pressure 108/66 09/20/18 06:13 O2 Sat by Pulse Oximetry (%) Pertinent Admission Physical Exam Findings: WITHDRAWAL SYMPTOMS. Laboratory Tests 09/16/18 09/16/18 09/16/18 11:20 11:20 11:20 WBC 4.7 RBC 5.07 Hgb 13.6 Hct 41.4 MCV 81.8 MCH 26.9 MCHC 32.8 RDW 17.7 H Plt Count 247 MPV 8.3 Sodium 138 Potassium 4.8 Chloride 105 Carbon Dioxide 29 Anion Gap 4 L BUN 14 Creatinine 1.0 Est GFR (CKD-EPI)AfAm 89.86 Est GFR (CKD-EPI)NonAf 77.54 Random Glucose 80 Calcium 9.2 Total Bilirubin 0.5 AST 33 ALT 31 Alkaline Phosphatase 96 Total Protein 7.2 Albumin 3.8 Urine Color Urine Appearance Urine pH Urine pH (Auto) Ur Specific [place] Specific [place] (Auto) Urine Protein Urine Protein (Auto) Urine Glucose (UA) Glucose (UA)(Auto) Urine Ketones Urine Ketones (Auto) Urine Blood Urine Blood (Auto) Urine Nitrite Urine Nitrite (Auto) Urine Bilirubin Urine Urobilinogen Urine Urobilinogen (Auto) Ur Leukocyte Esterase Leukocyte Esterase (Auto) Urine WBC (Auto) Urine RBC (Auto) Urine Casts (Auto) U Pathogenic Cast Auto U Epithel Cells (Auto) U Sm Round Cell (Auto) Urine Crystals (Auto) Urine Bacteria (Auto) Urine Yeast (Auto) RPR Titer Nonreactive 09/16/18 09/16/18 15:20 18:40 WBC RBC Hgb Hct MCV MCH MCHC RDW Plt Count MPV Sodium Potassium Chloride Carbon Dioxide Anion Gap BUN Creatinine Est GFR (CKD-EPI)AfAm Est GFR (CKD-EPI)NonAf Random Glucose Calcium Total Bilirubin AST ALT Alkaline Phosphatase Total Protein Albumin Urine Color Cancelled Yellow Urine Appearance Cancelled Clear Urine pH Cancelled Urine pH (Auto) 6.0 Ur Specific [place] Cancelled Specific [place] (Auto) 1.015 Urine Protein Cancelled Urine Protein (Auto) Negative Urine Glucose (UA) Cancelled Glucose (UA)(Auto) Negative Urine Ketones Cancelled Urine Ketones (Auto) Negative Urine Blood Cancelled Urine Blood (Auto) Negative Urine Nitrite Cancelled Urine Nitrite (Auto) Negative Urine Bilirubin Cancelled Negative Urine Urobilinogen Cancelled Urine Urobilinogen (Auto) 0.2 Ur Leukocyte Esterase Cancelled Leukocyte Esterase (Auto) Negative Urine WBC (Auto) Cancelled Urine RBC (Auto) Cancelled Urine Casts (Auto) Cancelled U Pathogenic Cast Auto Cancelled U Epithel Cells (Auto) Cancelled U Sm Round Cell (Auto) Cancelled Urine Crystals (Auto) Cancelled Urine Bacteria (Auto) Cancelled Urine Yeast (Auto) Cancelled RPR Titer LABS NOTED. - Treatment Hospital Course: Detox Protocol Followed, Detoxed Safely, Responded well, Discharged Condition Good Patient has Accepted a Rehab Referral to: PATIENT ADVISED TO CONSIDER LOCAL 12- STEP/NA/AA OUTPATIENT SUPPORT GROUPS. - Medication Discharge Medications: Ambulatory Orders NK [No Known Home Medication] 02/21/17 - Diagnosis (1) Alcohol dependence with uncomplicated withdrawal Status: Acute (2) Syncope Status: Acute Qualifiers: Syncope type: unspecified Qualified Code(s): R55 - Syncope and collapse (3) Weight loss Status: Acute (4) Cocaine dependence, uncomplicated Status: Chronic - AMA Did Patient Leave Against Medical Advice: No
== END 2018-09-20 09:00 | disposition home or self-care (01) | DRG 774 ==
LOC: YASAS 09:28 → Y3N 11:23
PROVIDERS: ADMIT Surgery; ATTEND Surgery
PROC: HZ2ZZZZ Detoxification Services for Substance Abuse Treatment (ICD-10-PCS; principal; 2018-09-16)
DX: F10.230 Alcohol dependence with withdrawal, uncomplicated (principal); F14.20 Cocaine dependence, uncomplicated; F17.210 Nicotine dependence, cigarettes, uncomplicated; R63.4 Abnormal weight loss
CPT/HCPCS: 36415; 80053; 81003; 85027; 86593

== ENCOUNTER 2018-10-01 11:11 | Inpatient (IN) | payer OTHER ==
[2018-10-01 12:38] VITALS: BMI 27.2
--- NOTE | 2018-10-01 14:10 | HP ---
CIWA Score Nausea/Vomitin-No Nausea/No Vomiting Muscle Tremors: 1-None Visible, but [place] Anxiety: 1-Mildly Anxious Agitation: 0-Normal Activity Paroxysmal Sweats: No Perspiration Orientation: 0-Oriented Tacttile Disturbances: 0-None Auditory Disturbances: 0-None Visual Disturbances: 0-None Headache: 1-Very Mild CIWA-Ar Total Score: 3 - Admission Criteria OASAS Guidelines: Admission for Medically Managed Detox: Requires at least one of the followin. CIWA greater than 12 2. Seizures within the past 24 hours 3. Delirium tremens within the past 24 hours 4. Hallucinations within the past 24 hours 5. Acute intervention needed for co occurring medical disorder 6. Acute intervention needed for co occurring psychiatric disorder 7. Severe withdrawal that cannot be handled at a lower level of care (continued vomiting, continued diarrhea, abnormal vital signs) requiring intravenous medication and/or fluids 8. Admission ROS S - HPI Chief Complaint: I am here for rehab from alcohol and cocaine Allergies/Adverse Reactions: Allergies Allergy/AdvReac Type Severity Reaction Status Date / Time No Known Allergies Allergy Verified 10/01/18 12:32 History of Present Illness: this 68 years old male with alcohol and cocaine dependence,seeking rehab multiple admissions in detox ,last detox 09/16/18 to 09/20/18 here for rehab nicotine dependence 2 packs/day,did not want any nicotine replacement denied psychiatric problem need rehab Exam Limitations: No Limitations - Ebola screening Have you traveled outside of the country in the last 21 days: No (N) Have you had contact with anyone from an Ebola affected area: No Do you have a fever: No - Review of Systems Constitutional: No Symptoms Reported EENT: reports: No Symptoms Reported Respiratory: reports: No Symptoms reported Cardiac: reports: No Symptoms Reported GI: reports: No Symptoms Reported : reports: No Symptoms Reported Musculoskeletal: reports: No Symptoms Reported Integumentary: reports: No Symptoms Reported Neuro: reports: No Symptoms reported Endocrine: reports: No Symptoms Reported Hematology: reports: No Symptoms Reported Psychiatric: reports: No Sypmtoms Reported, Judgement Intact, Orientated x3, Disorientated Other Systems: Reviewed and Negative Patient History - Patient Medical History Hx Anemia: No Hx Asthma: No Hx Chronic Obstructive Pulmonary Disease (COPD): No Hx Cancer: No Hx Cardiac Disorders: No Hx Congestive Heart Failure: No Hx Hypertension: No Hx Hypercholesterolemia: No Hx Pacemaker: No HX Cerebrovascular Accident: No Hx Seizures: No Hx Dementia: No Hx Diabetes: No Hx Gastrointestinal Disorders: No Hx Liver Disease: No Hx Genitourinary Disorders: No Hx Sexually Transmitted Disorders: No Hx Renal Disease (ESRD): No Hx Thyroid Disease: No Hx Human Immunodeficiency Virus (HIV): No (2018 negative) Hx Hepatitis C: No (NEGATIVE HX) Hx Depression: No Hx Suicide Attempt: No Hx Bipolar Disorder: No Hx Schizophrenia: No Other Medical History: no suicidal,no homicidal - Patient Surgical History Past Surgical History: No Hx Neurologic Surgery: No Hx Cataract Extraction: No Hx Cardiac Surgery: No Hx Lung Surgery: No Hx Breast Surgery: No Hx Breast Biopsy: No Hx Abdominal Surgery: No Hx Appendectomy: No Hx Cholecystectomy: No Hx Genitourinary Surgery: No Hx Section: No Hx Orthopedic Surgery: No Anesthesia Reaction: No - PPD History Previous Implant?: Yes Documented Results: Negative w/proof Implanted On Prior [facility] Admission?: Yes Date: 08/01/18 Results: 0 mm PPD to be Administered?: No - Smoking Cessation Smoking history: Current every day smoker Have you smoked in the past 12 months: Yes Aproximately how many cigarettes per day: 40 Cigars Per Day: 0 Hx Chewing Tobacco Use: No Initiated information on smoking cessation: Yes 'Breaking Loose' booklet given: 10/01/18 - Substance & Tx. History Hx Alcohol Use: Yes Hx Substance Use: Yes Substance Use Type: Alcohol, Cocaine Hx Substance Use Treatment: Yes ([facility] 09/16/18 to 09/20/18) - Substances abused Alcohol Substance route: Oral Frequency: Daily Amount used: 3 six pk beers ( 24 oz cans), 1 pt. rum Age of first use: 16 Date of last use: 09/30/18 Cocaine Substance route: Smoking Frequency: Daily Amount used: $100 Age of first use: 16 Date of last use: 09/30/18 Crack Substance route: Smoking Frequency: Daily Amount used: $100 Age of first use: 16 Date of last use: 09/30/18 Family Disease History - Family Disease History Family Disease History: Diabetes: Mother (), Brother (), Other: Father (no contact) Admission Physical Exam BHS - Vital Signs Vital Signs: Vital Signs - 24 hr 10/01/18 10/01/18 12:33 13:55 Temperature 97.6 F 97.6 F Pulse Rate 67 67 Respiratory 20 20 Rate Blood Pressure 127/81 127/81 - Physical General Appearance: Yes: Within Normal Limits HEENTM: Yes: Normal ENT Inspection, Normal Voice, DAVIS, Pharynx Normal Respiratory: Yes: Within Normal Limits, Lungs Clear, Normal Breath Sounds Neck: Yes: Within Normal Limits, Supple, Trachea in good position Breast: Yes: Within Normal Limits Cardiology: Yes: Within Normal Limits, Regular Rhythm, Regular Rate, S1, S2 Abdominal: Yes: Within Normal Limits, Normal Bowel Sounds, Non Tender, Flat, Soft Genitourinary: Yes: Within Normal Limits Back: Yes: Within Normal Limits Musculoskeletal: Yes: Within Normal Limits Extremities: Yes: Within Normal Limits 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: Yes: seat installer II-XII NML intact, Fully Oriented, Alert, Motor Strength 5/5 Integumentary: Yes: Within Normal Limits Lymphatic: Yes: Within Normal Limits - Diagnostic (1) Alcohol dependence Current Visit: No Status: Chronic Qualifiers: Substance use status: uncomplicated Qualified Code(s): F10.20 - Alcohol dependence, uncomplicated (2) Cocaine dependence Current Visit: No Status: Chronic Qualifiers: Substance use status: uncomplicated Qualified Code(s): F14.20 - Cocaine dependence, uncomplicated (3) Nicotine dependence Current Visit: No Status: Chronic Qualifiers: Nicotine product type: cigarettes Substance use status: uncomplicated Qualified Code(s): F17.210 - Nicotine dependence, cigarettes, uncomplicated Cleared for Admission BHS - Detox or Rehab Claeared for Rehab Admission: Yes Breathalyzer - Breathalyzer Breathalyzer: 0 Urine Drug Screen - Test Device Lot number: [id number] Expiration date: 09/04/19 - Control Is test valid?: Yes - Results Drug screen NEGATIVE: No Urine drug screen results: MADHURI-Cocaine, BZO-Benzodiazepines Inpatient Rehab Admission - Rehab Decision to Admit Inpatient rehab admission?: Yes - Initial Determination Are CD services needed?: Yes Free of communicable disease: Yes Not in need of hospitalization: Yes - Rehab Admission Criteria Previous failed treatment: Yes Poor recovery environment: Yes Comorbidities: Yes Lacks judgement: No Patient is meeting Inpatient Rehab admission criteria:: Yes
[2018-10-01] MEDS ORDERED: MAGNESIUM CITRATE 300 ML BOTTLE PO PRN (14:15)
[2018-10-01] MEDS ORDERED: LOPERAMIDE HCL 2 MG CAPSULE PO PRN (14:15)
[2018-10-01] MEDS ORDERED: IBUPROFEN 400 MG TABLET (FP) PO PRN (14:15)
[2018-10-01] MEDS ORDERED: hydrOXYzine PAMOATE 50 MG CAPSULE (FP) PO PRN (14:15)
[2018-10-01] MEDS ORDERED: MAG HYDROX/AL HYDROX/SIMETH 30 ML UNIT-DOSE CUP PO PRN (14:15)
[2018-10-01] MEDS ORDERED: ACETAMINOPHEN 325 MG TABLET (FP) PO PRN (14:15)
[2018-10-01] MEDS ORDERED: P-EPHED 60MG/TRIPROLIDI 2.5MG TABLET PO PRN (14:15)
[2018-10-01] MEDS ORDERED: MAGNESIUM HYDROX 2400MG/30ML ORAL SUSPENSION 30 ML CUP PO PRN (14:15)
[2018-10-01] MEDS ORDERED: MENTHOL/PHENOL 1 EACH UD MM PRN (14:15)
[2018-10-01] MEDS ORDERED: guaiFENesin 200 MG/10 ML 10 ML UNIT-DOSE CUPS PO PRN (14:15)
[2018-10-01 20:45] LABS: PH,URINE 5.5 (5.0-8.0); URINE APPEARANCE CLEAR; URINE BILIRUBIN NEGATIVE (NEGATIVE); URINE COLOR YELLOW; URINE GLUCOSE (UA) 2+ (NEGATIVE); URINE KETONE NEGATIVE (NEGATIVE); URINE LEUK ESTERASE NEGATIVE (NEGATIVE); URINE NITRITE NEGATIVE (NEGATIVE); URINE PROTEIN NEGATIVE (NEGATIVE)
[2018-10-01] MEDS: THIAMINE HCL 100 MG TABLET (FP) PO SCH (21:28)
[2018-10-01] MEDS ORDERED: MELATONIN 5 MG TABLETS PO PRN (22:00)
[2018-10-02] MEDS: PRENATAL VITAMINS W/ FOLIC ACID TABLET (FP) PO SCH (10:07)
[2018-10-02] MEDS: THIAMINE HCL 100 MG TABLET (FP) PO SCH (21:42)
[2018-10-03] MEDS: PRENATAL VITAMINS W/ FOLIC ACID TABLET (FP) PO SCH (10:11)
[2018-10-03] MEDS: THIAMINE HCL 100 MG TABLET (FP) PO SCH (22:00)
[2018-10-04] MEDS: PRENATAL VITAMINS W/ FOLIC ACID TABLET (FP) PO SCH (10:01)
[2018-10-04] MEDS: THIAMINE HCL 100 MG TABLET (FP) PO SCH (21:36)
[2018-10-05] MEDS: PRENATAL VITAMINS W/ FOLIC ACID TABLET (FP) PO SCH (09:46)
[2018-10-05] MEDS: THIAMINE HCL 100 MG TABLET (FP) PO SCH (21:42)
[2018-10-06] MEDS: PRENATAL VITAMINS W/ FOLIC ACID TABLET (FP) PO SCH (10:26)
[2018-10-06] MEDS: THIAMINE HCL 100 MG TABLET (FP) PO SCH (21:38)
[2018-10-07 06:56] VITALS: BP 132/66; PULSE 69; TEMP 98.1
[2018-10-07] MEDS: PRENATAL VITAMINS W/ FOLIC ACID TABLET (FP) PO SCH (10:45)
--- NOTE | 2018-10-07 14:51 | PN ---
[facility] Progress Note (SOAP) Subjective: PT WAS ADMITTED ON 10/01/18 BUT NOW WANTS TO DISCONTINUE REHAB TREATMENT STATING "I HAVE MANY THINGS TO DO". PT WAS SEEN BY [facility] BEFORE EXITING AND HAS BEEN REFERRED TO [facility], [address] [place] [address]. PT REPORTS WILL SEEK PRIMARY CARE AT [facility] FOR MEDICAL MANAGEMENT. AMBULATING WITH [facility]. PT IS ALERT O X 3. DENIES S/H/I. Objective: 10/07/18 14:51 Vital Signs 10/07/18 06:55 Temperature 98.1 F Pulse Rate 69 Respiratory 18 Rate Blood Pressure 132/66 Laboratory Tests 10/01/18 14:23 Urine Color Yellow Urine Appearance Clear Urine pH 5.5 Ur Specific [place] 1.019 Urine Protein Negative Urine Glucose (UA) 2+ H Urine Ketones Negative Urine Blood Negative Urine Nitrite Negative Urine Bilirubin Negative Urine Urobilinogen 1.0 Ur Leukocyte Esterase Negative Assessment: 10/07/18 14:51 NAD Plan: PT SIGNED OUT AMA FOLLOW UP AT [facility] FOR CD AFTERCARE RECOMMENDED. FOLLOW UP WITH PRIMARY CARE AT [facility] CENTER [facility] WITHIN 1- 2 WEEKS AFTER DISCHARGE.
== END 2018-10-07 13:22 | disposition left against medical advice (07) | DRG 770 ==
LOC: YASAS 11:11 → Y3W 14:04
PROVIDERS: ADMIT Neuromusculoskeletal Medicine & OMM; ATTEND Neuromusculoskeletal Medicine & OMM
PROC: HZ42ZZZ Group Counseling for Substance Abuse Treatment, Cognitive-Behavioral (ICD-10-PCS; principal; 2018-10-01)
DX: F10.20 Alcohol dependence, uncomplicated (principal); F14.20 Cocaine dependence, uncomplicated; F17.210 Nicotine dependence, cigarettes, uncomplicated
CPT/HCPCS: 81003

== ENCOUNTER 2018-10-24 08:41 | Inpatient (IN) | payer OTHER ==
[2018-10-24 09:54] VITALS: BMI 28.7
--- NOTE | 2018-10-24 12:24 | HP ---
CIWA Score Nausea/Vomitin Muscle Tremors: 4-Moderate,w/Arms Extend Anxiety: 4-Mod. Anxious/Guarded Agitation: 1-Slight > Activity Paroxysmal Sweats: 2 Orientation: 0-Oriented Tacttile Disturbances: 0-None Auditory Disturbances: 2-Mild Harshness/Frighten Visual Disturbances: 2-Mild Sensitivity Headache: 0-None Present CIWA-Ar Total Score: 17 - Admission Criteria OASAS Guidelines: Admission for Medically Managed Detox: Requires at least one of the followin. CIWA greater than 12 2. Seizures within the past 24 hours 3. Delirium tremens within the past 24 hours 4. Hallucinations within the past 24 hours 5. Acute intervention needed for co occurring medical disorder 6. Acute intervention needed for co occurring psychiatric disorder 7. Severe withdrawal that cannot be handled at a lower level of care (continued vomiting, continued diarrhea, abnormal vital signs) requiring intravenous medication and/or fluids 8. Admission ROS S - HPI Allergies/Adverse Reactions: Allergies Allergy/AdvReac Type Severity Reaction Status Date / Time No Known Allergies Allergy Verified 10/24/18 09:50 History of Present Illness: pt here requesting detox from etoh use , reports 12 beers /day since , latest use yesterday , current symptoms as above , reports tremors if not drinking , starts drinking around 9 am, denies seizures, blackouts or falls while intoxicated . Most recent detox at this facility , left rehab 10/07/18 , reports relapse since . cocaine : 50 $/day denies IVDU , first use tobacco: 1 ppd PMHX : denies PSHX : denies PSych : denies meds : denies Shx : lives in group home , unemployed Exam Limitations: No Limitations - Ebola screening Have you traveled outside of the country in the last 21 days: No Have you had contact with anyone from an Ebola affected area: No Do you have a fever: No - Review of Systems Constitutional: See HPI, Loss of Appetite EENT: reports: See HPI, Other (glasses) Respiratory: reports: No Symptoms reported Cardiac: reports: No Symptoms Reported GI: reports: See HPI, Nausea : reports: No Symptoms Reported Musculoskeletal: reports: Joint Pain (chronic OA r hip , r knee) Integumentary: reports: No Symptoms Reported Neuro: reports: See HPI Endocrine: reports: No Symptoms Reported Psychiatric: reports: Orientated x3, Anxious Patient History - Patient Medical History Hx Anemia: No Hx Asthma: No Hx Chronic Obstructive Pulmonary Disease (COPD): No Hx Cancer: No Hx Cardiac Disorders: No Hx Congestive Heart Failure: No Hx Hypertension: No Hx Hypercholesterolemia: No Hx Pacemaker: No HX Cerebrovascular Accident: No Hx Seizures: No Hx Dementia: No Hx Diabetes: No Hx Gastrointestinal Disorders: No Hx Liver Disease: No Hx Genitourinary Disorders: No Hx Sexually Transmitted Disorders: No Hx Renal Disease (ESRD): No Hx Thyroid Disease: No Hx Human Immunodeficiency Virus (HIV): No (2018 negative) Hx Hepatitis C: No (NEGATIVE HX) Hx Depression: No Hx Suicide Attempt: No Hx Bipolar Disorder: No Hx Schizophrenia: No - Patient Surgical History Past Surgical History: No Hx Neurologic Surgery: No Hx Cataract Extraction: No Hx Cardiac Surgery: No Hx Lung Surgery: No Hx Breast Surgery: No Hx Breast Biopsy: No Hx Abdominal Surgery: No Hx Appendectomy: No Hx Cholecystectomy: No Hx Genitourinary Surgery: No Hx Section: No Hx Orthopedic Surgery: No Anesthesia Reaction: No - PPD History Date: 08/01/18 Results: 0 mm - Smoking Cessation Smoking history: Current every day smoker Have you smoked in the past 12 months: Yes Aproximately how many cigarettes per day: 40 Cigars Per Day: 0 Hx Chewing Tobacco Use: No Initiated information on smoking cessation: No - Substances abused Alcohol Substance route: Oral Frequency: Daily Amount used: 3 six pk beers ( 24 oz cans), 1 pt. rum Age of first use: 16 Date of last use: 10/23/18 Cocaine Substance route: Smoking Frequency: Daily Amount used: $100 Age of first use: 16 Date of last use: 09/30/18 Crack Substance route: Smoking Frequency: Daily Amount used: $50 Age of first use: 36 Date of last use: 10/23/18 Family Disease History - Family Disease History Family Disease History: Diabetes: Mother (), Brother (), Other: Father (no contact) Admission Physical Exam BHS - Vital Signs Vital Signs: Vital Signs - 24 hr 10/24/18 09:50 Temperature 97.5 F L Pulse Rate 70 Respiratory 16 Rate Blood Pressure 139/80 - Physical General Appearance: Yes: Mild Distress, Irritable, Anxious HEENTM: Yes: EOMI, Normocephalic, Normal Voice Respiratory: Yes: Lungs Clear, Normal Breath Sounds, No Respiratory Distress, No Accessory Muscle Use Neck: Yes: No masses,lesions,Nodules, Trachea in good position Cardiology: Yes: Regular Rhythm, Regular Rate, S1, S2 Abdominal: Yes: Non Tender, Soft Musculoskeletal: Yes: Gait Steady Extremities: Yes: Normal Range of Motion, Tremors 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: Yes: Alert, Motor Strength 5/5 Integumentary: Yes: Warm - Diagnostic (1) Alcohol dependence with uncomplicated withdrawal Current Visit: Yes Status: Acute (2) Cocaine dependence, uncomplicated Current Visit: Yes Status: Chronic (3) Nicotine dependence Current Visit: Yes Status: Chronic Qualifiers: Nicotine product type: cigarettes Breathalyzer - Breathalyzer Breathalyzer: 0 Urine Drug Screen - Test Device Lot number: [id number] Expiration date: 07/04/20 - Control Is test valid?: Yes - Results Drug screen NEGATIVE: No Urine drug screen results: MADHURI-Cocaine Inpatient Rehab Admission - Rehab Decision to Admit Inpatient rehab admission?: No
[2018-10-24] MEDS ORDERED: MAGNESIUM HYDROX 2400MG/30ML ORAL SUSPENSION 30 ML CUP PO PRN (12:29)
[2018-10-24] MEDS ORDERED: MENTHOL/PHENOL 1 EACH UD MM PRN (12:29)
[2018-10-24] MEDS ORDERED: MAG HYDROX/AL HYDROX/SIMETH 30 ML UNIT-DOSE CUP PO PRN (12:29)
[2018-10-24] MEDS ORDERED: METHOCARBAMOL 500 MG TABLET PO PRN (12:29)
[2018-10-24] MEDS ORDERED: MELATONIN 5 MG TABLETS PO PRN (12:29)
[2018-10-24] MEDS ORDERED: IBUPROFEN 400 MG TABLET (FP) PO PRN (12:29)
[2018-10-24] MEDS ORDERED: BISMUTH SUBSALICYLATE 524 MG/30 ML UD PO PRN (12:29)
[2018-10-24] MEDS ORDERED: MAGNESIUM CITRATE 300 ML BOTTLE PO PRN (12:29)
[2018-10-24] MEDS ORDERED: hydrOXYzine PAMOATE 25 MG CAPSULE (FP) PO PRN (12:29)
[2018-10-24] MEDS ORDERED: ACETAMINOPHEN 325 MG TABLET (FP) PO PRN ×2 (12:29)
[2018-10-24] MEDS ORDERED: chlordiazePOXIDE HCL 10 MG CAPSULE PO PRN (12:33)
[2018-10-24] MEDS: chlordiazePOXIDE HCL 25 MG CAPSULE PO SCH ×2 (13:44→22:14)
[2018-10-24] MEDS: THIAMINE HCL 100 MG TABLET (FP) PO SCH (22:15)
[2018-10-25] MEDS: chlordiazePOXIDE HCL 25 MG CAPSULE PO SCH (05:22)
[2018-10-25] MEDS: PRENATAL VITAMINS W/ FOLIC ACID TABLET (FP) PO SCH (11:04)
[2018-10-25 11:41] LABS: HEMATOCRIT 41.4 % (35.4-49); HEMOGLOBIN 13.9 GM/dL (11.7-16.9); MCH 27.4 pg (25.7-33.7); MCHC 33.5 g/dl (32.0-35.9); MEAN CELL VOLUME 81.9 fl (80-96); PLATELET COUNT 241 K/MM3 (134-434); RBC 5.06 M/mm3 (4.00-5.60); RDW 16.8 % (11.9-15.9); WHITE BLOOD COUNT 3.4 K/mm3 (4.0-10.0)
--- NOTE | 2018-10-25 12:05 | PN ---
S CIWA - CIWA Score Nausea/Vomitin-No Nausea/No Vomiting Muscle Tremors: 4-Moderate,w/Arms Extend Anxiety: 3 Agitation: 3 Paroxysmal Sweats: 2 Orientation: 0-Oriented Tacttile Disturbances: 0-None Auditory Disturbances: 0-None Visual Disturbances: 0-None Headache: 0-None Present CIWA-Ar Total Score: 12 S Progress Note (SOAP) Subjective: body aches sweats shakes irritable Objective: 10/25/18 12:04 Vital Signs Temperature 97.5 F L 10/25/18 10:16 Pulse Rate 85 10/25/18 10:16 Respiratory Rate 19 10/25/18 10:16 Blood Pressure 115/56 L 10/25/18 10:16 O2 Sat by Pulse Oximetry (%) Laboratory Tests 10/25/18 07:00 WBC 3.4 L RBC 5.06 Hgb 13.9 Hct 41.4 MCV 81.9 MCH 27.4 MCHC 33.5 RDW 16.8 H Plt Count 241 MPV 8.0 rest of labs pending aaox3 ambulating no acute distress Assessment: 10/25/18 12:04 withdrawal sx Plan: continue detox increase fluids f/u pending labs
[2018-10-25] MEDS: chlordiazePOXIDE 5 MG CAPSULE PO SCH ×2 (12:48→22:41)
[2018-10-25 14:14] LABS: ALBUMIN 3.7 g/dl (3.4-5.0); BILIRUBIN,TOTAL 0.4 mg/dL (0.2-1); BLOOD UREA NITROGEN 14.7 mg/dL (7-18); CALCIUM 9.2 mg/dL (8.5-10.1); CREATININE 1.1 mg/dL (0.55-1.3); POTASSIUM 4.2 mmol/L (3.5-5.1)
[2018-10-25] MEDS: THIAMINE HCL 100 MG TABLET (FP) PO SCH (22:41)
[2018-10-26] MEDS: chlordiazePOXIDE 5 MG CAPSULE PO SCH (06:47)
[2018-10-26] MEDS: PRENATAL VITAMINS W/ FOLIC ACID TABLET (FP) PO SCH (10:27)
[2018-10-26] MEDS ORDERED: chlordiazePOXIDE HCL 10 MG CAPSULE PO PRN (13:00)
--- NOTE | 2018-10-26 13:03 | PN ---
BHS CIWA - CIWA Score Nausea/Vomitin Muscle Tremors: 1-None Visible, but [place] Anxiety: 1-Mildly Anxious Agitation: 1-Slight > Activity Paroxysmal Sweats: 1-Minimal Palms Moist Orientation: 0-Oriented Tacttile Disturbances: 2-Mild Itch/Numbness/Burn Auditory Disturbances: 0-None Visual Disturbances: 0-None Headache: 2-Mild CIWA-Ar Total Score: 10 BHS Progress Note (SOAP) Subjective: PATIENT C/O MILD ANXIETY, NIGHT SWEATS AND HEADACHE. Objective: 10/26/18 13:00 Vital Signs Temperature 97.3 F L 10/26/18 09:56 Pulse Rate 86 10/26/18 09:56 Respiratory Rate 18 10/26/18 09:56 Blood Pressure 105/66 10/26/18 09:56 O2 Sat by Pulse Oximetry (%) Laboratory Tests 10/25/18 10/25/18 07:00 07:00 WBC 3.4 L RBC 5.06 Hgb 13.9 Hct 41.4 MCV 81.9 MCH 27.4 MCHC 33.5 RDW 16.8 H Plt Count 241 MPV 8.0 Sodium 142 Potassium 4.2 Chloride 108 H Carbon Dioxide 27 Anion Gap 7 L BUN 14.7 Creatinine 1.1 Est GFR (CKD-EPI)AfAm 80.08 Est GFR (CKD-EPI)NonAf 69.10 Random Glucose 104 Calcium 9.2 Total Bilirubin 0.4 AST 23 ALT 21 Alkaline Phosphatase 100 Total Protein 7.0 Albumin 3.7 PE: ALERT AND ORIENTED X 3 SKIN WARM AND DRY +PERRLA, EOMS INTACT BL EXT FULL ROM, NO TREMORS AMB AD JUAN Assessment: 10/26/18 13:02 WITHDRAWAL SX Plan: CONTINUE DETOX MONITOR CLINICALLY
[2018-10-26] MEDS: chlordiazePOXIDE HCL 10 MG CAPSULE PO SCH ×2 (13:47→22:53)
[2018-10-26] MEDS: THIAMINE HCL 100 MG TABLET (FP) PO SCH (22:54)
[2018-10-27] MEDS: chlordiazePOXIDE HCL 10 MG CAPSULE PO SCH (06:19)
[2018-10-27 10:10] VITALS: BP 108/69; PULSE 49; TEMP 98.6
--- NOTE | 2018-10-27 14:20 | DS ---
[facility] Detox Discharge Summary Admission Date: 10/24/18 Discharge Date: 10/27/18 - History Present History: Alcohol Dependence, Cannabis Dependence, Cocaine Dependence Additional Comments: Patient completed detox and was discharged safely Pertinent Past History: Nicotine dependence Alcohol dependence Cocaine dependence - Physical Exam Results Vital Signs: Vital Signs Temperature 98.6 F 10/27/18 09:56 Pulse Rate 49 L 10/27/18 09:56 Respiratory Rate 18 10/27/18 09:56 Blood Pressure 108/69 10/27/18 09:56 O2 Sat by Pulse Oximetry (%) Pertinent Admission Physical Exam Findings: Withdrawal symptoms Laboratory Tests 10/25/18 10/25/18 07:00 07:00 WBC 3.4 L RBC 5.06 Hgb 13.9 Hct 41.4 MCV 81.9 MCH 27.4 MCHC 33.5 RDW 16.8 H Plt Count 241 MPV 8.0 Sodium 142 Potassium 4.2 Chloride 108 H Carbon Dioxide 27 Anion Gap 7 L BUN 14.7 Creatinine 1.1 Est GFR (CKD-EPI)AfAm 80.08 Est GFR (CKD-EPI)NonAf 69.10 Random Glucose 104 Calcium 9.2 Total Bilirubin 0.4 AST 23 ALT 21 Alkaline Phosphatase 100 Total Protein 7.0 Albumin 3.7 Labs reviewed - Treatment Hospital Course: Detox Protocol Followed, Detoxed Safely, Responded well, Discharged Condition Good - Medication Discharge Medications: Ambulatory Orders NK [No Known Home Medication] 02/21/17 - Diagnosis (1) Alcohol dependence with uncomplicated withdrawal Status: Acute (2) Cocaine dependence, uncomplicated Status: Chronic (3) Nicotine dependence Status: Chronic Qualifiers: Nicotine product type: cigarettes - AMA Did Patient Leave Against Medical Advice: No (F/U with PCP within 1-2 weeks)
== END 2018-10-27 09:51 | disposition home or self-care (01) | DRG 774 ==
LOC: YASAS 08:41 → Y6N 12:46
PROVIDERS: ADMIT Surgery; ATTEND Surgery
PROC: HZ2ZZZZ Detoxification Services for Substance Abuse Treatment (ICD-10-PCS; principal; 2018-10-24)
DX: F10.230 Alcohol dependence with withdrawal, uncomplicated (principal); F14.20 Cocaine dependence, uncomplicated; F12.20 Cannabis dependence, uncomplicated; F17.213 Nicotine dependence, cigarettes, with withdrawal; Z59.0 Homelessness
CPT/HCPCS: 36415; 80053; 85027

== ENCOUNTER 2018-11-13 08:24 | Inpatient (IN) | payer OTHER ==
[2018-11-13 09:47] VITALS: BMI 28.7
--- NOTE | 2018-11-13 10:08 | HP ---
CIWA Score Nausea/Vomitin Muscle Tremors: 2 Anxiety: 2 Agitation: 2 Paroxysmal Sweats: 1-Minimal Palms Moist Orientation: 0-Oriented Tacttile Disturbances: 1-Very Mild Itch/Numbness Auditory Disturbances: 1-Very Mild Visual Disturbances: 0-None Headache: 2-Mild CIWA-Ar Total Score: 13 - Admission Criteria OASAS Guidelines: Admission for Medically Managed Detox: Requires at least one of the followin. CIWA greater than 12 2. Seizures within the past 24 hours 3. Delirium tremens within the past 24 hours 4. Hallucinations within the past 24 hours 5. Acute intervention needed for co occurring medical disorder 6. Acute intervention needed for co occurring psychiatric disorder 7. Severe withdrawal that cannot be handled at a lower level of care (continued vomiting, continued diarrhea, abnormal vital signs) requiring intravenous medication and/or fluids 8. Admission ROS BHS - HPI Chief Complaint: i need help to stop drinking alcohol and cocaine Allergies/Adverse Reactions: Allergies Allergy/AdvReac Type Severity Reaction Status Date / Time No Known Allergies Allergy Verified 11/13/18 09:33 History of Present Illness: this 68 years - Ebola screening Have you traveled outside of the country in the last 21 days: No (N) Have you had contact with anyone from an Ebola affected area: No Do you have a fever: No - Review of Systems Constitutional: Loss of Appetite, Malaise, Night Sweats, Changes in sleep, Weakness EENT: reports: Nose Congestion Respiratory: reports: No Symptoms reported Cardiac: reports: No Symptoms Reported GI: reports: Nausea, Poor Appetite, Abdominal cramping Musculoskeletal: reports: Back Pain, Muscle Pain Integumentary: reports: Dryness Neuro: reports: No Symptoms reported, Headache, Tremors Endocrine: reports: No Symptoms Reported Hematology: reports: No Symptoms Reported Psychiatric: reports: No Sypmtoms Reported, Judgement Intact, Mood/Affect Appropiate, Orientated x3 Other Systems: Reviewed and Negative Patient History - Patient Medical History Hx Anemia: No Hx Asthma: No Hx Chronic Obstructive Pulmonary Disease (COPD): No Hx Cancer: No Hx Cardiac Disorders: No Hx Congestive Heart Failure: No Hx Hypertension: No Hx Hypercholesterolemia: No Hx Pacemaker: No HX Cerebrovascular Accident: No Hx Seizures: No Hx Dementia: No Hx Diabetes: No Hx Gastrointestinal Disorders: No Hx Liver Disease: No Hx Genitourinary Disorders: No Hx Sexually Transmitted Disorders: No Hx Renal Disease (ESRD): No Hx Thyroid Disease: No Hx Human Immunodeficiency Virus (HIV): No (2018 negative) Hx Hepatitis C: No (NEGATIVE HX) Hx Depression: No Hx Suicide Attempt: No Hx Bipolar Disorder: No Hx Schizophrenia: No Other Medical History: no suicidal,no homicidal - Patient Surgical History Past Surgical History: No Hx Neurologic Surgery: No Hx Cataract Extraction: No Hx Cardiac Surgery: No Hx Lung Surgery: No Hx Breast Surgery: No Hx Breast Biopsy: No Hx Abdominal Surgery: No Hx Appendectomy: No Hx Cholecystectomy: No Hx Genitourinary Surgery: No Hx Section: No Hx Orthopedic Surgery: No Anesthesia Reaction: No - PPD History Previous Implant?: Yes Documented Results: Negative w/o proof Date: 08/01/18 Results: 0 mm PPD to be Administered?: No - Smoking Cessation Smoking history: Current every day smoker Have you smoked in the past 12 months: Yes Aproximately how many cigarettes per day: 40 Cigars Per Day: 0 Hx Chewing Tobacco Use: No Initiated information on smoking cessation: Yes 'Breaking Loose' booklet given: 11/13/18 - Substance & Tx. History Substance Use Type: Alcohol, Cocaine Hx Substance Use Treatment: Yes ([facility] 10/24/18 to ) - Substances abused Alcohol Substance route: Oral Frequency: Daily Amount used: 2-3 6pks beer Age of first use: 16 Date of last use: 11/12/18 Cocaine Substance route: Smoking Frequency: Daily Amount used: $100 Age of first use: 16 Date of last use: 11/12/18 Crack Substance route: Smoking Frequency: Daily Amount used: $50 Age of first use: 36 Date of last use: 11/12/18 Family Disease History - Family Disease History Family Disease History: Diabetes: Mother (), Brother (), Other: Father (no contact) Admission Physical Exam B[facility] - Vital Signs Vital Signs: Vital Signs - 24 hr 11/13/18 09:40 Temperature 97.1 F L Pulse Rate 78 Respiratory 18 Rate Blood Pressure 126/70 - Physical General Appearance: Yes: Moderate Distress, Tremorous, Irritable, Anxious HEENTM: Yes: Normal ENT Inspection, DAVIS, Pharynx Normal Respiratory: Yes: Lungs Clear, Normal Breath Sounds, No Respiratory Distress Neck: Yes: Within Normal Limits, Supple, Trachea in good position Breast: Yes: Within Normal Limits Cardiology: Yes: Within Normal Limits, Regular Rhythm, Regular Rate, S1, S2 Abdominal: Yes: Within Normal Limits, Normal Bowel Sounds, Non Tender, Flat, Soft Genitourinary: Yes: Within Normal Limits Back: Yes: Within Normal Limits Musculoskeletal: Yes: Back pain, Muscle Pain Extremities: Yes: Within Normal Limits, Normal Range of Motion, Tremors 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: 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: 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, Alert, Motor Strength 5/5 Integumentary: Yes: Dry Lymphatic: Yes: Within Normal Limits - Diagnostic (1) Alcohol dependence with uncomplicated withdrawal Current Visit: No Status: Acute (2) Syncope Current Visit: No Status: Acute Qualifiers: Syncope type: unspecified Qualified Code(s): R55 - Syncope and collapse (3) Weight loss Current Visit: No Status: Acute (4) Cocaine dependence Current Visit: No Status: Chronic Qualifiers: Substance use status: uncomplicated Qualified Code(s): F14.20 - Cocaine dependence, uncomplicated (5) Nicotine dependence Current Visit: No Status: Chronic Qualifiers: Nicotine product type: cigarettes Cleared for Admission S - Detox or Rehab [facility] Level of Care: Medically Managed Detox Regimen/Protocol: Librium Breathalyzer - Breathalyzer Breathalyzer: 0 Urine Drug Screen - Test Device Lot number: [id number] Expiration date: 07/04/20 - Control Is test valid?: Yes - Results Drug screen NEGATIVE: No Urine drug screen results: MADHURI-Cocaine, BZO-Benzodiazepines Inpatient Rehab Admission - Rehab Decision to Admit Inpatient rehab admission?: No
[2018-11-13] MEDS ORDERED: chlordiazePOXIDE HCL 25 MG CAPSULE PO PRN (10:20)
[2018-11-13] MEDS ORDERED: hydrOXYzine HCL 25 MG TABLET (FP) PO PRN (10:20)
[2018-11-13] MEDS ORDERED: MELATONIN 5 MG TABLETS PO PRN (10:20)
[2018-11-13] MEDS ORDERED: MENTHOL/PHENOL 1 EACH UD MM PRN (10:20)
[2018-11-13] MEDS ORDERED: METHOCARBAMOL 500 MG TABLET PO PRN (10:20)
[2018-11-13] MEDS ORDERED: IBUPROFEN 400 MG TABLET (FP) PO PRN (10:20)
[2018-11-13] MEDS ORDERED: BISMUTH SUBSALICYLATE 524 MG/30 ML UD PO PRN (10:20)
[2018-11-13] MEDS ORDERED: ACETAMINOPHEN 325 MG TABLET (FP) PO PRN ×2 (10:20)
[2018-11-13] MEDS ORDERED: MAG HYDROX/AL HYDROX/SIMETH 30 ML UNIT-DOSE CUP PO PRN (10:20)
[2018-11-13] MEDS ORDERED: MAGNESIUM CITRATE 300 ML BOTTLE PO PRN (10:20)
[2018-11-13] MEDS ORDERED: MAGNESIUM HYDROX 2400MG/30ML ORAL SUSPENSION 30 ML CUP PO PRN (10:20)
[2018-11-13 14:27] LABS: HEMATOCRIT 38.7 % (35.4-49); HEMOGLOBIN 13.2 GM/dL (11.7-16.9); MCH 27.8 pg (25.7-33.7); MEAN CELL VOLUME 81.9 fl (80-96); MEAN PLT VOLUME 7.7 fl (7.5-11.1); RBC 4.73 M/mm3 (4.00-5.60); RDW 16.2 % (11.9-15.9); WHITE BLOOD COUNT 4.5 K/mm3 (4.0-10.0)
[2018-11-13 14:38] LABS: ALBUMIN 3.6 g/dl (3.4-5.0); BILIRUBIN,TOTAL 0.5 mg/dL (0.2-1); BLOOD UREA NITROGEN 17.5 mg/dL (7-18); CREATININE 1.2 mg/dL (0.55-1.3); POTASSIUM 4.7 mmol/L (3.5-5.1); TOT PROT 7.1 g/dl (6.4-8.2)
[2018-11-13 14:40] LABS: PLATELET COUNT 252 K/MM3 (134-434)
[2018-11-13 14:41] LABS: URINE APPEARANCE CLEAR; URINE BILIRUBIN NEGATIVE (NEGATIVE); URINE COLOR YELLOW; URINE GLUCOSE (UA) TRACE (NEGATIVE); URINE KETONE NEGATIVE (NEGATIVE); URINE LEUK ESTERASE NEGATIVE (NEGATIVE); URINE NITRITE NEGATIVE (NEGATIVE); URINE PROTEIN NEGATIVE (NEGATIVE); URINE UROBILINOGEN 0.2 mg/dL (0.2-1.0)
[2018-11-13] MEDS: chlordiazePOXIDE HCL 25 MG CAPSULE PO SCH ×2 (17:10→22:17)
[2018-11-13] MEDS: THIAMINE HCL 100 MG TABLET (FP) PO SCH (22:17)
[2018-11-14] MEDS: chlordiazePOXIDE HCL 25 MG CAPSULE PO SCH ×4 (05:47→22:33)
--- NOTE | 2018-11-14 10:06 | PN ---
S CIWA - CIWA Score Nausea/Vomitin-Mild Nausea/No Vomiting Muscle Tremors: 1-None Visible, but [place] Anxiety: 3 Agitation: 2 Paroxysmal Sweats: 1-Minimal Palms Moist Orientation: 1-Uncertain about Date Tacttile Disturbances: 1-Very Mild Itch/Numbness Auditory Disturbances: 0-None Visual Disturbances: 0-None Headache: 2-Mild CIWA-Ar Total Score: 12 BHS Progress Note (SOAP) Subjective: 68 years old male admitted on 11/13/18 for alcohol withdrawal sx patient has long history of battling with alcohol addiction denies medical condition discuss preventable alcohol related health issues report feeling tired prefers sleeping on bed today Objective: 11/14/18 10:05 Vital Signs Temperature 97.3 F L 11/14/18 09:22 Pulse Rate 72 11/14/18 09:22 Respiratory Rate 18 11/14/18 09:22 Blood Pressure 109/68 11/14/18 09:22 O2 Sat by Pulse Oximetry (%) Laboratory Last Values WBC 4.5 K/mm3 (4.0-10.0) 11/13/18 10:40 RBC 4.73 M/mm3 (4.00-5.60) 11/13/18 10:40 Hgb 13.2 GM/dL (11.7-16.9) 11/13/18 10:40 Hct 38.7 % (35.4-49) 11/13/18 10:40 MCV 81.9 fl (80-96) 11/13/18 10:40 MCH 27.8 pg (25.7-33.7) 11/13/18 10:40 MCHC 34.0 g/dl (32.0-35.9) 11/13/18 10:40 RDW 16.2 % (11.9-15.9) H 11/13/18 10:40 Plt Count 252 K/MM3 (134-434) 11/13/18 10:40 MPV 7.7 fl (7.5-11.1) 11/13/18 10:40 Sodium 143 mmol/L (136-145) 11/13/18 10:40 Potassium 4.7 mmol/L (3.5-5.1) 11/13/18 10:40 Chloride 108 mmol/L (98-107) H 11/13/18 10:40 Carbon Dioxide 29 mmol/L (21-32) 11/13/18 10:40 Anion Gap 6 MMOL/L (8-16) L 11/13/18 10:40 BUN 17.5 mg/dL (7-18) 11/13/18 10:40 Creatinine 1.2 mg/dL (0.55-1.3) 11/13/18 10:40 Est GFR (CKD-EPI)AfAm 72.09 11/13/18 10:40 Est GFR (CKD-EPI)NonAf 62.20 11/13/18 10:40 Random Glucose 68 mg/dL (74-106) L 11/13/18 10:40 Calcium 9.0 mg/dL (8.5-10.1) 11/13/18 10:40 Total Bilirubin 0.5 mg/dL (0.2-1) 11/13/18 10:40 AST 26 U/L (15-37) 11/13/18 10:40 ALT 31 U/L (13-61) 11/13/18 10:40 Alkaline Phosphatase 92 U/L (45-117) 11/13/18 10:40 Total Protein 7.1 g/dl (6.4-8.2) 11/13/18 10:40 Albumin 3.6 g/dl (3.4-5.0) 11/13/18 10:40 Urine Color Yellow 11/13/18 11:30 Urine Appearance Clear 11/13/18 11:30 Urine pH 5.0 (5.0-8.0) 11/13/18 11:30 Ur Specific [place] 1.020 (1.010-1.035) 11/13/18 11:30 Urine Protein Negative (NEGATIVE) 11/13/18 11:30 Urine Glucose (UA) Trace (NEGATIVE) 11/13/18 11:30 Urine Ketones Negative (NEGATIVE) 11/13/18 11:30 Urine Blood Negative (NEGATIVE) 11/13/18 11:30 Urine Nitrite Negative (NEGATIVE) 11/13/18 11:30 Urine Bilirubin Negative (NEGATIVE) 11/13/18 11:30 Urine Urobilinogen 0.2 mg/dL (0.2-1.0) 11/13/18 11:30 Ur Leukocyte Esterase Negative (NEGATIVE) 11/13/18 11:30 RPR Titer Nonreactive (NONREACTIVE) 11/13/18 10:40 lab noted Assessment: 11/14/18 10:06 alcohol withdrawal sx Plan: continue alcohol detox
[2018-11-14] MEDS: PRENATAL VITAMINS W/ FOLIC ACID TABLET (FP) PO SCH (10:47)
[2018-11-14] MEDS: THIAMINE HCL 100 MG TABLET (FP) PO SCH (22:33)
[2018-11-15] MEDS: chlordiazePOXIDE HCL 25 MG CAPSULE PO SCH ×4 (06:24→22:13)
[2018-11-15] MEDS: PRENATAL VITAMINS W/ FOLIC ACID TABLET (FP) PO SCH (10:29)
--- NOTE | 2018-11-15 14:51 | PN ---
[facility] CIWA - CIWA Score Nausea/Vomitin-No Nausea/No Vomiting Muscle Tremors: None Anxiety: 3 Agitation: 1-Slight > Activity Paroxysmal Sweats: 3 Orientation: 2-Disoriented Date<2 days Tacttile Disturbances: 0-None Auditory Disturbances: 0-None Visual Disturbances: 2-Mild Sensitivity Headache: 0-None Present CIWA-Ar Total Score: 11 S Progress Note (SOAP) Subjective: Fatigue, Sweating, Anxious. Objective: PATIENT A & O X 2 (UNCERTAIN ABOUT CURRENT DAY / DATE). PATIENT OBSERVED AMBULATING ON UNIT UNASSISTED. IN NO ACUTE DISTRESS. 11/15/18 14:51 Vital Signs Temperature 97 F L 11/15/18 13:23 Pulse Rate 67 11/15/18 13:23 Respiratory Rate 17 11/15/18 13:23 Blood Pressure 115/71 11/15/18 13:23 O2 Sat by Pulse Oximetry (%) Laboratory Tests 11/13/18 11/13/18 11/13/18 10:40 10:40 10:40 WBC 4.5 RBC 4.73 Hgb 13.2 Hct 38.7 MCV 81.9 MCH 27.8 MCHC 34.0 RDW 16.2 H Plt Count 252 MPV 7.7 Sodium 143 Potassium 4.7 Chloride 108 H Carbon Dioxide 29 Anion Gap 6 L BUN 17.5 Creatinine 1.2 Est GFR (CKD-EPI)AfAm 72.09 Est GFR (CKD-EPI)NonAf 62.20 Random Glucose 68 L Calcium 9.0 Total Bilirubin 0.5 AST 26 ALT 31 Alkaline Phosphatase 92 Total Protein 7.1 Albumin 3.6 Urine Color Urine Appearance Urine pH Ur Specific [place] Urine Protein Urine Glucose (UA) Urine Ketones Urine Blood Urine Nitrite Urine Bilirubin Urine Urobilinogen Ur Leukocyte Esterase RPR Titer Nonreactive 11/13/18 11:30 WBC RBC Hgb Hct MCV MCH MCHC RDW Plt Count MPV Sodium Potassium Chloride Carbon Dioxide Anion Gap BUN Creatinine Est GFR (CKD-EPI)AfAm Est GFR (CKD-EPI)NonAf Random Glucose Calcium Total Bilirubin AST ALT Alkaline Phosphatase Total Protein Albumin Urine Color Yellow Urine Appearance Clear Urine pH 5.0 Ur Specific [place] 1.020 Urine Protein Negative Urine Glucose (UA) Trace Urine Ketones Negative Urine Blood Negative Urine Nitrite Negative Urine Bilirubin Negative Urine Urobilinogen 0.2 Ur Leukocyte Esterase Negative RPR Titer LABS NOTED. Assessment: 11/15/18 14:52 WITHDRAWAL SYMPTOMS. Plan: CONTINUE DETOX.
[2018-11-15] MEDS: THIAMINE HCL 100 MG TABLET (FP) PO SCH (22:13)
[2018-11-16] MEDS ORDERED: chlordiazePOXIDE HCL 10 MG CAPSULE PO PRN
[2018-11-16] MEDS: chlordiazePOXIDE HCL 10 MG CAPSULE PO SCH ×4 (07:12→22:17)
[2018-11-16] MEDS: PRENATAL VITAMINS W/ FOLIC ACID TABLET (FP) PO SCH (10:23)
--- NOTE | 2018-11-16 15:13 | PN ---
S CIWA - CIWA Score Nausea/Vomitin-No Nausea/No Vomiting Muscle Tremors: None Anxiety: 3 Agitation: 1-Slight > Activity Paroxysmal Sweats: 2 Orientation: 2-Disoriented Date<2 days Tacttile Disturbances: 0-None Auditory Disturbances: 0-None Visual Disturbances: 2-Mild Sensitivity Headache: 0-None Present CIWA-Ar Total Score: 10 BHS Progress Note (SOAP) Subjective: Anxious, Sweating. Objective: PATIENT A & O X 2 (UNCERTAIN ABOUT CURRENT DAY / DATE). PATIENT OBSERVED AMBULATING ON UNIT UNASSISTED. IN NO ACUTE DISTRESS. 11/16/18 15:13 Vital Signs Temperature 96.9 F L 11/16/18 14:30 Pulse Rate 78 11/16/18 14:30 Respiratory Rate 16 11/16/18 14:30 Blood Pressure 140/83 11/16/18 14:30 O2 Sat by Pulse Oximetry (%) Laboratory Tests 11/13/18 11/13/18 11/13/18 10:40 10:40 10:40 WBC 4.5 RBC 4.73 Hgb 13.2 Hct 38.7 MCV 81.9 MCH 27.8 MCHC 34.0 RDW 16.2 H Plt Count 252 MPV 7.7 Sodium 143 Potassium 4.7 Chloride 108 H Carbon Dioxide 29 Anion Gap 6 L BUN 17.5 Creatinine 1.2 Est GFR (CKD-EPI)AfAm 72.09 Est GFR (CKD-EPI)NonAf 62.20 Random Glucose 68 L Calcium 9.0 Total Bilirubin 0.5 AST 26 ALT 31 Alkaline Phosphatase 92 Total Protein 7.1 Albumin 3.6 Urine Color Urine Appearance Urine pH Ur Specific [place] Urine Protein Urine Glucose (UA) Urine Ketones Urine Blood Urine Nitrite Urine Bilirubin Urine Urobilinogen Ur Leukocyte Esterase RPR Titer Nonreactive 11/13/18 11:30 WBC RBC Hgb Hct MCV MCH MCHC RDW Plt Count MPV Sodium Potassium Chloride Carbon Dioxide Anion Gap BUN Creatinine Est GFR (CKD-EPI)AfAm Est GFR (CKD-EPI)NonAf Random Glucose Calcium Total Bilirubin AST ALT Alkaline Phosphatase Total Protein Albumin Urine Color Yellow Urine Appearance Clear Urine pH 5.0 Ur Specific [place] 1.020 Urine Protein Negative Urine Glucose (UA) Trace Urine Ketones Negative Urine Blood Negative Urine Nitrite Negative Urine Bilirubin Negative Urine Urobilinogen 0.2 Ur Leukocyte Esterase Negative RPR Titer LABS NOTED. Assessment: 11/16/18 15:14 WITHDRAWAL SYMPTOMS. Plan: CONTINUE DETOX.
[2018-11-16] MEDS: THIAMINE HCL 100 MG TABLET (FP) PO SCH (22:18)
[2018-11-17] MEDS: chlordiazePOXIDE HCL 10 MG CAPSULE PO SCH ×2 (06:49→17:54)
[2018-11-17] MEDS: PRENATAL VITAMINS W/ FOLIC ACID TABLET (FP) PO SCH (10:43)
--- NOTE | 2018-11-17 14:26 | PN ---
[facility] CIWA - CIWA Score Nausea/Vomitin-No Nausea/No Vomiting Muscle Tremors: 2 Anxiety: 1-Mildly Anxious Agitation: 2 Paroxysmal Sweats: No Perspiration Orientation: 0-Oriented Tacttile Disturbances: 0-None Auditory Disturbances: 0-None Visual Disturbances: 0-None Headache: 0-None Present CIWA-Ar Total Score: 5 S Progress Note (SOAP) Subjective: 68 years old male admitted on 11/13/18 for alcohol withdrawal sx denies medical problem ambulating on hallway discuss aftercare with peers patient prefers to go to [facility] for alcohol recovery Objective: 11/17/18 14:30 Vital Signs Temperature 97.0 F L 11/17/18 13:09 Pulse Rate 64 11/17/18 13:09 Respiratory Rate 18 11/17/18 13:09 Blood Pressure 131/75 11/17/18 13:09 O2 Sat by Pulse Oximetry (%) Laboratory Last Values WBC 4.5 K/mm3 (4.0-10.0) 11/13/18 10:40 RBC 4.73 M/mm3 (4.00-5.60) 11/13/18 10:40 Hgb 13.2 GM/dL (11.7-16.9) 11/13/18 10:40 Hct 38.7 % (35.4-49) 11/13/18 10:40 MCV 81.9 fl (80-96) 11/13/18 10:40 MCH 27.8 pg (25.7-33.7) 11/13/18 10:40 MCHC 34.0 g/dl (32.0-35.9) 11/13/18 10:40 RDW 16.2 % (11.9-15.9) H 11/13/18 10:40 Plt Count 252 K/MM3 (134-434) 11/13/18 10:40 MPV 7.7 fl (7.5-11.1) 11/13/18 10:40 Sodium 143 mmol/L (136-145) 11/13/18 10:40 Potassium 4.7 mmol/L (3.5-5.1) 11/13/18 10:40 Chloride 108 mmol/L (98-107) H 11/13/18 10:40 Carbon Dioxide 29 mmol/L (21-32) 11/13/18 10:40 Anion Gap 6 MMOL/L (8-16) L 11/13/18 10:40 BUN 17.5 mg/dL (7-18) 11/13/18 10:40 Creatinine 1.2 mg/dL (0.55-1.3) 11/13/18 10:40 Est GFR (CKD-EPI)AfAm 72.09 11/13/18 10:40 Est GFR (CKD-EPI)NonAf 62.20 11/13/18 10:40 Random Glucose 68 mg/dL (74-106) L 11/13/18 10:40 Calcium 9.0 mg/dL (8.5-10.1) 11/13/18 10:40 Total Bilirubin 0.5 mg/dL (0.2-1) 11/13/18 10:40 AST 26 U/L (15-37) 11/13/18 10:40 ALT 31 U/L (13-61) 11/13/18 10:40 Alkaline Phosphatase 92 U/L (45-117) 11/13/18 10:40 Total Protein 7.1 g/dl (6.4-8.2) 11/13/18 10:40 Albumin 3.6 g/dl (3.4-5.0) 11/13/18 10:40 Urine Color Yellow 11/13/18 11:30 Urine Appearance Clear 11/13/18 11:30 Urine pH 5.0 (5.0-8.0) 11/13/18 11:30 Ur Specific [place] 1.020 (1.010-1.035) 11/13/18 11:30 Urine Protein Negative (NEGATIVE) 11/13/18 11:30 Urine Glucose (UA) Trace (NEGATIVE) 11/13/18 11:30 Urine Ketones Negative (NEGATIVE) 11/13/18 11:30 Urine Blood Negative (NEGATIVE) 11/13/18 11:30 Urine Nitrite Negative (NEGATIVE) 11/13/18 11:30 Urine Bilirubin Negative (NEGATIVE) 11/13/18 11:30 Urine Urobilinogen 0.2 mg/dL (0.2-1.0) 11/13/18 11:30 Ur Leukocyte Esterase Negative (NEGATIVE) 11/13/18 11:30 RPR Titer Nonreactive (NONREACTIVE) 11/13/18 10:40 lab noted Assessment: 11/17/18 14:30 alcohol withdrawal sx Plan: continue alcohol detox
[2018-11-17] MEDS: THIAMINE HCL 100 MG TABLET (FP) PO SCH (22:47)
[2018-11-18] MEDS ORDERED: chlordiazePOXIDE HCL 10 MG CAPSULE PO ONE (05:00)
[2018-11-18 06:15] VITALS: BP 102/68; PULSE 64; TEMP 97
--- NOTE | 2018-11-18 14:13 | DS ---
[facility] Detox Discharge Summary Admission Date: 11/13/18 Discharge Date: 11/18/18 - History Present History: Alcohol Dependence Additional Comments: 68 years old male admitted on 11/13/18 for alcohol withdrawal sx denies medical history doing well through out the detox stay aftercare new focus - Physical Exam Results Vital Signs: Vital Signs Temperature 97.0 F L 11/18/18 06:14 Pulse Rate 64 11/18/18 06:14 Respiratory Rate 18 11/18/18 06:30 Blood Pressure 102/68 11/18/18 06:14 O2 Sat by Pulse Oximetry (%) Pertinent Admission Physical Exam Findings: alcohol withdrawal sx Laboratory Last Values WBC 4.5 K/mm3 (4.0-10.0) 11/13/18 10:40 RBC 4.73 M/mm3 (4.00-5.60) 11/13/18 10:40 Hgb 13.2 GM/dL (11.7-16.9) 11/13/18 10:40 Hct 38.7 % (35.4-49) 11/13/18 10:40 MCV 81.9 fl (80-96) 11/13/18 10:40 MCH 27.8 pg (25.7-33.7) 11/13/18 10:40 MCHC 34.0 g/dl (32.0-35.9) 11/13/18 10:40 RDW 16.2 % (11.9-15.9) H 11/13/18 10:40 Plt Count 252 K/MM3 (134-434) 11/13/18 10:40 MPV 7.7 fl (7.5-11.1) 11/13/18 10:40 Sodium 143 mmol/L (136-145) 11/13/18 10:40 Potassium 4.7 mmol/L (3.5-5.1) 11/13/18 10:40 Chloride 108 mmol/L (98-107) H 11/13/18 10:40 Carbon Dioxide 29 mmol/L (21-32) 11/13/18 10:40 Anion Gap 6 MMOL/L (8-16) L 11/13/18 10:40 BUN 17.5 mg/dL (7-18) 11/13/18 10:40 Creatinine 1.2 mg/dL (0.55-1.3) 11/13/18 10:40 Est GFR (CKD-EPI)AfAm 72.09 11/13/18 10:40 Est GFR (CKD-EPI)NonAf 62.20 11/13/18 10:40 Random Glucose 68 mg/dL (74-106) L 11/13/18 10:40 Calcium 9.0 mg/dL (8.5-10.1) 11/13/18 10:40 Total Bilirubin 0.5 mg/dL (0.2-1) 11/13/18 10:40 AST 26 U/L (15-37) 11/13/18 10:40 ALT 31 U/L (13-61) 11/13/18 10:40 Alkaline Phosphatase 92 U/L (45-117) 11/13/18 10:40 Total Protein 7.1 g/dl (6.4-8.2) 11/13/18 10:40 Albumin 3.6 g/dl (3.4-5.0) 11/13/18 10:40 Urine Color Yellow 11/13/18 11:30 Urine Appearance Clear 11/13/18 11:30 Urine pH 5.0 (5.0-8.0) 11/13/18 11:30 Ur Specific [place] 1.020 (1.010-1.035) 11/13/18 11:30 Urine Protein Negative (NEGATIVE) 11/13/18 11:30 Urine Glucose (UA) Trace (NEGATIVE) 11/13/18 11:30 Urine Ketones Negative (NEGATIVE) 11/13/18 11:30 Urine Blood Negative (NEGATIVE) 11/13/18 11:30 Urine Nitrite Negative (NEGATIVE) 11/13/18 11:30 Urine Bilirubin Negative (NEGATIVE) 11/13/18 11:30 Urine Urobilinogen 0.2 mg/dL (0.2-1.0) 11/13/18 11:30 Ur Leukocyte Esterase Negative (NEGATIVE) 11/13/18 11:30 RPR Titer Nonreactive (NONREACTIVE) 11/13/18 10:40 lab noted - Treatment Hospital Course: Detox Protocol Followed, Detoxed Safely, Responded well, Discharged Condition Good, Rehab Referral Accepted Patient has Accepted a Rehab Referral to: new focus - Medication Discharge Medications: Ambulatory Orders NK [No Known Home Medication] 02/21/17 - Diagnosis (1) Alcohol dependence with uncomplicated withdrawal Status: Acute (2) Nicotine dependence Status: Acute Qualifiers: Nicotine product type: cigarettes Substance use status: in withdrawal Qualified Code(s): F17.213 - Nicotine dependence, cigarettes, with withdrawal (3) Substance induced mood disorder Status: Suspected - AMA Did Patient Leave Against Medical Advice: No
== END 2018-11-18 09:17 | disposition home or self-care (01) | DRG 774 ==
LOC: YASAS 08:24 → Y3N 11:06
PROVIDERS: ADMIT Surgery; ATTEND Surgery
PROC: HZ2ZZZZ Detoxification Services for Substance Abuse Treatment (ICD-10-PCS; principal; 2018-11-13)
DX: F10.230 Alcohol dependence with withdrawal, uncomplicated (principal); F14.20 Cocaine dependence, uncomplicated; F17.213 Nicotine dependence, cigarettes, with withdrawal; F19.24 Other psychoactive substance dependence with psychoactive substance-induced mood disorder; R63.4 Abnormal weight loss
CPT/HCPCS: 36415; 80053; 81003; 85027; 86593

== ENCOUNTER 2018-12-13 01:01 | Inpatient (IN) | payer OTHER ==
--- NOTE | 2018-12-13 01:18 | HP ---
CIWA Score Nausea/Vomitin-No Nausea/No Vomiting Muscle Tremors: 4-Moderate,w/Arms Extend Anxiety: 1-Mildly Anxious Agitation: 1-Slight > Activity Paroxysmal Sweats: 3 (Increased facial moisture.) Orientation: 0-Oriented Tacttile Disturbances: 0-None Auditory Disturbances: 0-None Visual Disturbances: 0-None Headache: 2-Mild CIWA-Ar Total Score: 11 - Admission Criteria OASAS Guidelines: Admission for Medically Managed Detox: Requires at least one of the followin. CIWA greater than 12 2. Seizures within the past 24 hours 3. Delirium tremens within the past 24 hours 4. Hallucinations within the past 24 hours 5. Acute intervention needed for co occurring medical disorder 6. Acute intervention needed for co occurring psychiatric disorder 7. Severe withdrawal that cannot be handled at a lower level of care (continued vomiting, continued diarrhea, abnormal vital signs) requiring intravenous medication and/or fluids 8. Patient presents the following: Acute intervention needed for co-occurring med or psych disorder (KIA 0.038) Admission Criteria Met: Admission criteria met Admission ROS [facility] Chief Complaint: I'm having alcohol withdrawal symptoms and I want detox. Allergies/Adverse Reactions: Allergies Allergy/AdvReac Type Severity Reaction Status Date / Time No Known Allergies Allergy Verified 12/13/18 02:07 History of Present Illness: 68 y.o. presents w/ mild alcohol withdrawal and a KIA 0.038. Requesting detox and rehab. UTox: + MADHURI Multiple monthly detox and rehab admissions to [facility] for past several months. Last discharge from rehab on 11/18/18. Alcohol use since age 16. States currently 3- six pack 16 oz beers daily. States drank just before coming into [facility]. States relapsed a couple of days after leaving last rehab on 11/18. States did not not utilize community support after discharge. Cocaine use since age16/Crack use since age 36. Current use is $50/day - smokes. Last smoked 12/12/18. Nicotine use since age 16. Current use is 2 packs/day. Declines nicotine replacement. Hx: alcohol related syncope Denies hx seizures, DT's, or overdoses States longest sobriety 1 yr in 2015. Lives in a senior living. Unemployed. PMHx: Urinary frequency (Encouraged to f/u w/ PCP); Last EKG @ [facility]: 10/04/17: NSR w/ (L) [employer]. MHHx: c/o nervousness. Denies depression. Denies thoughts of harming self or others. Search Terms: Cruz Carrington, 1950 Search Date: 12/13/2018 01:21:32 AM The Drug Utilization Report below displays all of the controlled substance prescriptions, if any, that your patient has filled in the last twelve months. The information displayed on this report is compiled from pharmacy submissions to the Department, and accurately reflects the information as submitted by the pharmacies. This report was requested by: Meme Modi | Reference #: [id number] There are no results for the search terms that you entered. Exam Limitations: No Limitations - Ebola screening Have you traveled outside of the country in the last 21 days: No Have you had contact with anyone from an Ebola affected area: No Have you been sick,other than usual withdrawal symptoms: No (Denies recent exposure to measles) Do you have a fever: No - Review of Systems Constitutional: No Symptoms Reported EENT: reports: Blurred Vision, Dental Problems ("Teeth messed up". Chews and swallows ok.) Respiratory: reports: No Symptoms reported Cardiac: reports: No Symptoms Reported GI: reports: Diarrhea (3 days ago.) : reports: Frequency (4-5 x/ night nocturia.) Musculoskeletal: reports: No Symptoms Reported Integumentary: reports: No Symptoms Reported Neuro: reports: Headache ((L) frontal area - moderate. Denies head injury) Endocrine: reports: Increased Thirst, Increased Urine Hematology: reports: No Symptoms Reported Psychiatric: reports: Judgement Intact, Orientated x3, Agitated Patient History - Patient Medical History Hx Anemia: No Hx Asthma: No Hx Chronic Obstructive Pulmonary Disease (COPD): No Hx Cancer: No Hx Cardiac Disorders: No Hx Congestive Heart Failure: No Hx Hypertension: No Hx Hypercholesterolemia: No Hx Pacemaker: No HX Cerebrovascular Accident: No Hx Seizures: No Hx Dementia: No Hx Diabetes: No Hx Gastrointestinal Disorders: No Hx Liver Disease: No Hx Genitourinary Disorders: No Hx Sexually Transmitted Disorders: No Hx Renal Disease (ESRD): No Hx Thyroid Disease: No Hx Human Immunodeficiency Virus (HIV): No (2018 negative) Hx Hepatitis C: No (NEGATIVE HX) Hx Depression: No Hx Suicide Attempt: No Hx Bipolar Disorder: No Hx Schizophrenia: No - Patient Surgical History Past Surgical History: No Hx Neurologic Surgery: No Hx Cataract Extraction: No Hx Cardiac Surgery: No Hx Lung Surgery: No Hx Breast Surgery: No Hx Breast Biopsy: No Hx Abdominal Surgery: No Hx Appendectomy: No Hx Cholecystectomy: No Hx Genitourinary Surgery: No Hx Section: No Hx Orthopedic Surgery: No Anesthesia Reaction: No - PPD History Previous Implant?: Yes Documented Results: Negative w/proof Implanted On Prior [facility] Admission?: Yes Date: 08/01/18 Results: 0 mm PPD to be Administered?: No - Smoking Cessation Smoking history: Current every day smoker Have you smoked in the past 12 months: Yes Aproximately how many cigarettes per day: 40 Cigars Per Day: 0 Hx Chewing Tobacco Use: No Initiated information on smoking cessation: Yes 'Breaking Loose' booklet given: 12/13/18 - Substance & Tx. History Hx Substance Use: Yes Substance Use Type: Alcohol, Cocaine Hx Substance Use Treatment: Yes (DETOX, REHAB) - Substances abused Alcohol Substance route: Oral Frequency: Daily Amount used: 2-3 6pks beer Age of first use: 16 Date of last use: 11/12/18 Cocaine Substance route: Smoking Frequency: Daily Amount used: $100 Age of first use: 16 Date of last use: 11/12/18 Crack Substance route: Smoking Frequency: Daily Amount used: $50 Age of first use: 36 Date of last use: 11/12/18 Family Disease History - Family Disease History Family Disease History: Diabetes: Mother (), Brother (), Other: Father (no contact) Admission Physical Exam [facility] Physical General Appearance: Yes: Nourished, Mild Distress, Tremorous, Irritable, Sweating (Increased facial moisture.), Anxious HEENTM: Yes: EOMI, Hearing grossly Normal, Normocephalic, Normal Voice, Pharynx Normal, Other (Irregular shaped pupil (R) eye. (L) eye responds slowly to light. Jean arcus senilis present.) Respiratory: Yes: Lungs Clear, Normal Breath Sounds, No Respiratory Distress Neck: Yes: No masses,lesions,Nodules, Supple Breast: Yes: Breast Exam Deferred Cardiology: Yes: Regular Rhythm, Regular Rate, S1, S2 Abdominal: Yes: Non Tender, Soft, Increased Bowel Sounds, Protuberent ( Increased abdominal adiposity) Genitourinary: Yes: Frequency (w/o burning or pain.), Nocturia (4 x/ night nocturia) Back: Yes: Normal Inspection Musculoskeletal: Yes: full range of Motion, Gait Steady Extremities: Yes: Normal Capillary Refill, Tremors (Gross tremors of hands w/ arms elevated) 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, Fully Oriented, Alert, Motor Strength 5/5 Integumentary: Yes: Normal Color, Warm, Moist (Increased facial moisture) Lymphatic: Yes: Within Normal Limits - Diagnostic (1) History of urinary frequency Current Visit: Yes Status: Chronic Comment: w/ nocturia (2) Alcohol dependence with uncomplicated withdrawal Current Visit: Yes Status: Acute (3) Nicotine dependence Current Visit: Yes Status: Chronic Qualifiers: Nicotine product type: cigarettes Substance use status: uncomplicated Qualified Code(s): F17.210 - Nicotine dependence, cigarettes, uncomplicated (4) Cocaine dependence, uncomplicated Current Visit: Yes Status: Chronic (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
[2018-12-13 01:27] VITALS: BMI 28.7
[2018-12-13] MEDS ORDERED: MAGNESIUM HYDROX 2400MG/30ML ORAL SUSPENSION 30 ML CUP PO PRN (02:37)
[2018-12-13] MEDS ORDERED: METHOCARBAMOL 500 MG TABLET PO PRN (02:37)
[2018-12-13] MEDS ORDERED: MENTHOL/PHENOL 1 EACH UD MM PRN (02:37)
[2018-12-13] MEDS ORDERED: MAG HYDROX/AL HYDROX/SIMETH 30 ML UNIT-DOSE CUP PO PRN (02:37)
[2018-12-13] MEDS ORDERED: MELATONIN 5 MG TABLETS PO PRN (02:37)
[2018-12-13] MEDS ORDERED: BISMUTH SUBSALICYLATE 524 MG/30 ML UD PO PRN (02:37)
[2018-12-13] MEDS ORDERED: IBUPROFEN 400 MG TABLET (FP) PO PRN (02:37)
[2018-12-13] MEDS ORDERED: MAGNESIUM CITRATE 300 ML BOTTLE PO PRN (02:37)
[2018-12-13] MEDS ORDERED: ACETAMINOPHEN 325 MG TABLET (FP) PO PRN ×2 (02:37)
[2018-12-13] MEDS ORDERED: hydrOXYzine PAMOATE 25 MG CAPSULE (FP) PO PRN (02:37)
[2018-12-13] MEDS ORDERED: chlordiazePOXIDE HCL 10 MG CAPSULE PO PRN (02:37)
[2018-12-13] MEDS ORDERED: ONDANSETRON *ODT* 4 MG TABLET SL PRN (02:37)
[2018-12-13] MEDS: chlordiazePOXIDE HCL 25 MG CAPSULE PO SCH ×3 (06:24→23:01)
[2018-12-13] MEDS: PRENATAL VITAMINS W/ FOLIC ACID TABLET (FP) PO SCH (10:28)
--- NOTE | 2018-12-13 13:21 | PN ---
S CIWA - CIWA Score Nausea/Vomitin-No Nausea/No Vomiting Muscle Tremors: 2 Anxiety: 3 Agitation: 1-Slight > Activity Paroxysmal Sweats: 2 Orientation: 0-Oriented Tacttile Disturbances: 2-Mild Itch/Numbness/Burn Auditory Disturbances: 0-None Visual Disturbances: 1-Very Mild Sensitivity Headache: 3-Moderate CIWA-Ar Total Score: 14 BHS Progress Note (SOAP) Subjective: Tremors, Anxious, Sweating, H/A. Objective: PATIENT A & O X 3, OBSERVED AMBULATING ON DETOX UNIT UNASSISTED. IN NO ACUTE DISTRESS. 12/13/18 13:20 Vital Signs Temperature 97.5 F L 12/13/18 09:10 Pulse Rate 55 L 12/13/18 09:10 Respiratory Rate 16 12/13/18 09:10 Blood Pressure 106/59 L 12/13/18 09:10 O2 Sat by Pulse Oximetry (%) DETOX ADMISSION LAB RESULTS PENDING. ADMISSION LAB RESULTS FROM DETOX ADMISSION ON 11/13/2018 NOTED. Assessment: 12/13/18 13:18 WITHDRAWAL SYMPTOMS. Plan: CONTINUE DETOX.
[2018-12-13] MEDS: THIAMINE HCL 100 MG TABLET (FP) PO SCH (23:01)
[2018-12-14] MEDS: chlordiazePOXIDE 5 MG CAPSULE PO SCH ×3 (05:29→22:53)
[2018-12-14 10:07] LABS: HEMATOCRIT 37.5 % (35.4-49); HEMOGLOBIN 12.9 GM/dL (11.7-16.9); MCH 28.3 pg (25.7-33.7); MCHC 34.4 g/dl (32.0-35.9); MEAN CELL VOLUME 82.2 fl (80-96); MEAN PLT VOLUME 7.9 fl (7.5-11.1); PLATELET COUNT 261 K/MM3 (134-434); RBC 4.57 M/mm3 (4.00-5.60); RDW 15.8 % (11.9-15.9); WHITE BLOOD COUNT 6.6 K/mm3 (4.0-10.0)
[2018-12-14 10:08] LABS: ALBUMIN 3.3 g/dl (3.4-5.0); BILIRUBIN,TOTAL 0.4 mg/dL (0.2-1); BLOOD UREA NITROGEN 14.4 mg/dL (7-18); CALCIUM 8.9 mg/dL (8.5-10.1); POTASSIUM 4.2 mmol/L (3.5-5.1); TOT PROT 6.6 g/dl (6.4-8.2)
--- NOTE | 2018-12-14 10:33 | PN ---
S CIWA - CIWA Score Nausea/Vomitin-No Nausea/No Vomiting Muscle Tremors: 2 Anxiety: 2 Agitation: 2 Paroxysmal Sweats: 3 Orientation: 0-Oriented Tacttile Disturbances: 0-None Auditory Disturbances: 0-None Visual Disturbances: 0-None Headache: 2-Mild CIWA-Ar Total Score: 11 S Progress Note (SOAP) Subjective: c/o anxiety, sweats, shakes, and headache. Objective: 12/14/18 10:33 Vital Signs 12/14/18 12/14/18 12/14/18 03:30 06:29 09:20 Temperature 97 F L 97.5 F L Pulse Rate 70 76 Respiratory 18 18 18 Rate Blood Pressure 107/70 120/81 Lab Results WBC 6.6 K/mm3 (4.0-10.0) 12/14/18 08:00 RBC 4.57 M/mm3 (4.00-5.60) 12/14/18 08:00 Hgb 12.9 GM/dL (11.7-16.9) 12/14/18 08:00 Hct 37.5 % (35.4-49) 12/14/18 08:00 MCV 82.2 fl (80-96) 12/14/18 08:00 MCHC 34.4 g/dl (32.0-35.9) 12/14/18 08:00 RDW 15.8 % (11.9-15.9) 12/14/18 08:00 Plt Count 261 K/MM3 (134-434) 12/14/18 08:00 Sodium 142 mmol/L (136-145) 12/14/18 08:00 Potassium 4.2 mmol/L (3.5-5.1) 12/14/18 08:00 Chloride 107 mmol/L (98-107) 12/14/18 08:00 Carbon Dioxide 28 mmol/L (21-32) 12/14/18 08:00 Anion Gap 7 MMOL/L (8-16) L 12/14/18 08:00 BUN 14.4 mg/dL (7-18) 12/14/18 08:00 Creatinine 1.0 mg/dL (0.55-1.3) 12/14/18 08:00 Random Glucose 95 mg/dL (74-106) 12/14/18 08:00 Calcium 8.9 mg/dL (8.5-10.1) 12/14/18 08:00 Labs noted. Assessment: 12/14/18 10:33 AOX3, in no acute respiratory distress Full ROM, ambulating in the unit. withdrawal symptoms. Plan: continue detox.
[2018-12-14] MEDS: PRENATAL VITAMINS W/ FOLIC ACID TABLET (FP) PO SCH (11:15)
[2018-12-14] MEDS: THIAMINE HCL 100 MG TABLET (FP) PO SCH (22:53)
[2018-12-15] MEDS ORDERED: chlordiazePOXIDE HCL 10 MG CAPSULE PO PRN
[2018-12-15] MEDS: chlordiazePOXIDE HCL 10 MG CAPSULE PO SCH ×3 (06:17→23:15)
--- NOTE | 2018-12-15 10:07 | PN ---
[facility] CIWA - CIWA Score Nausea/Vomitin-No Nausea/No Vomiting Muscle Tremors: 3 Anxiety: 2 Agitation: 2 Paroxysmal Sweats: No Perspiration Orientation: 0-Oriented Tacttile Disturbances: 0-None Auditory Disturbances: 0-None Visual Disturbances: 0-None Headache: 0-None Present CIWA-Ar Total Score: 7 S Progress Note (SOAP) Subjective: 68years old male admitted on 12/13/18 for acute alcohol sx management report doing well with librium detox regimen less tremor no headache hesitate to discuss aftercare with staff Objective: 12/15/18 10:12 Vital Signs Temperature 98.4 F 12/15/18 09:28 Pulse Rate 82 12/15/18 09:28 Respiratory Rate 18 12/15/18 09:28 Blood Pressure 128/77 12/15/18 09:28 O2 Sat by Pulse Oximetry (%) Laboratory Last Values WBC 6.6 K/mm3 (4.0-10.0) 12/14/18 08:00 RBC 4.57 M/mm3 (4.00-5.60) 12/14/18 08:00 Hgb 12.9 GM/dL (11.7-16.9) 12/14/18 08:00 Hct 37.5 % (35.4-49) 12/14/18 08:00 MCV 82.2 fl (80-96) 12/14/18 08:00 MCH 28.3 pg (25.7-33.7) 12/14/18 08:00 MCHC 34.4 g/dl (32.0-35.9) 12/14/18 08:00 RDW 15.8 % (11.9-15.9) 12/14/18 08:00 Plt Count 261 K/MM3 (134-434) 12/14/18 08:00 MPV 7.9 fl (7.5-11.1) 12/14/18 08:00 Sodium 142 mmol/L (136-145) 12/14/18 08:00 Potassium 4.2 mmol/L (3.5-5.1) 12/14/18 08:00 Chloride 107 mmol/L (98-107) 12/14/18 08:00 Carbon Dioxide 28 mmol/L (21-32) 12/14/18 08:00 Anion Gap 7 MMOL/L (8-16) L 12/14/18 08:00 BUN 14.4 mg/dL (7-18) 12/14/18 08:00 Creatinine 1.0 mg/dL (0.55-1.3) 12/14/18 08:00 Est GFR (CKD-EPI)AfAm 89.86 12/14/18 08:00 Est GFR (CKD-EPI)NonAf 77.54 12/14/18 08:00 Random Glucose 95 mg/dL (74-106) 12/14/18 08:00 Calcium 8.9 mg/dL (8.5-10.1) 12/14/18 08:00 Total Bilirubin 0.4 mg/dL (0.2-1) 12/14/18 08:00 AST 20 U/L (15-37) 12/14/18 08:00 ALT 25 U/L (13-61) 12/14/18 08:00 Alkaline Phosphatase 104 U/L (45-117) 12/14/18 08:00 Total Protein 6.6 g/dl (6.4-8.2) 12/14/18 08:00 Albumin 3.3 g/dl (3.4-5.0) L 12/14/18 08:00 lab noted Assessment: 12/15/18 10:13 mild alcohol withdrawal sx Plan: continue librium detox regimen
[2018-12-15] MEDS: PRENATAL VITAMINS W/ FOLIC ACID TABLET (FP) PO SCH (11:18)
[2018-12-15] MEDS: THIAMINE HCL 100 MG TABLET (FP) PO SCH (23:15)
[2018-12-16] MEDS ORDERED: chlordiazePOXIDE HCL 10 MG CAPSULE PO ONE (05:00)
[2018-12-16 06:00] VITALS: BP 114/76; PULSE 66; TEMP 97.1
--- NOTE | 2018-12-16 14:33 | DS ---
[facility] Detox Discharge Summary Admission Date: 12/13/18 Discharge Date: 12/16/18 - History Present History: Alcohol Dependence Additional Comments: 68 years old male admitted on 12/13/18 for acute alcohol withdrawal sx management doing well with librium detox regimen no complication through out the detox stay denies pain denies dizziness no burning urination denies suicidal ideation no muscle spasm - Physical Exam Results Vital Signs: Vital Signs Temperature 97.1 F L 12/16/18 05:59 Pulse Rate 66 12/16/18 05:59 Respiratory Rate 18 12/16/18 05:59 Blood Pressure 114/76 12/16/18 05:59 O2 Sat by Pulse Oximetry (%) Pertinent Admission Physical Exam Findings: alcohol withdrawal sx Laboratory Last Values WBC 6.6 K/mm3 (4.0-10.0) 12/14/18 08:00 RBC 4.57 M/mm3 (4.00-5.60) 12/14/18 08:00 Hgb 12.9 GM/dL (11.7-16.9) 12/14/18 08:00 Hct 37.5 % (35.4-49) 12/14/18 08:00 MCV 82.2 fl (80-96) 12/14/18 08:00 MCH 28.3 pg (25.7-33.7) 12/14/18 08:00 MCHC 34.4 g/dl (32.0-35.9) 12/14/18 08:00 RDW 15.8 % (11.9-15.9) 12/14/18 08:00 Plt Count 261 K/MM3 (134-434) 12/14/18 08:00 MPV 7.9 fl (7.5-11.1) 12/14/18 08:00 Sodium 142 mmol/L (136-145) 12/14/18 08:00 Potassium 4.2 mmol/L (3.5-5.1) 12/14/18 08:00 Chloride 107 mmol/L (98-107) 12/14/18 08:00 Carbon Dioxide 28 mmol/L (21-32) 12/14/18 08:00 Anion Gap 7 MMOL/L (8-16) L 12/14/18 08:00 BUN 14.4 mg/dL (7-18) 12/14/18 08:00 Creatinine 1.0 mg/dL (0.55-1.3) 12/14/18 08:00 Est GFR (CKD-EPI)AfAm 89.86 12/14/18 08:00 Est GFR (CKD-EPI)NonAf 77.54 12/14/18 08:00 Random Glucose 95 mg/dL (74-106) 12/14/18 08:00 Calcium 8.9 mg/dL (8.5-10.1) 12/14/18 08:00 Total Bilirubin 0.4 mg/dL (0.2-1) 12/14/18 08:00 AST 20 U/L (15-37) 12/14/18 08:00 ALT 25 U/L (13-61) 12/14/18 08:00 Alkaline Phosphatase 104 U/L (45-117) 12/14/18 08:00 Total Protein 6.6 g/dl (6.4-8.2) 12/14/18 08:00 Albumin 3.3 g/dl (3.4-5.0) L 12/14/18 08:00 lab noted alert oriented x 3 S1S2 clear lung bilaterally abdomen soft none tender - Treatment Hospital Course: Detox Protocol Followed, Detoxed Safely, Responded well, Discharged Condition Good, Rehab Referral Accepted Patient has Accepted a Rehab Referral to: community support approach - Medication Discharge Medications: Ambulatory Orders NK [No Known Home Medication] 02/21/17 - Diagnosis (1) Alcohol dependence with uncomplicated withdrawal Status: Acute (2) Nicotine dependence Status: Acute Qualifiers: Nicotine product type: cigarettes Substance use status: in withdrawal Qualified Code(s): F17.213 - Nicotine dependence, cigarettes, with withdrawal (3) Substance induced mood disorder Status: Suspected - AMA Did Patient Leave Against Medical Advice: No CIWA Score - CIWA Score Nausea/Vomitin-No Nausea/No Vomiting Muscle Tremors: 1-None Visible, but [place] Anxiety: 1-Mildly Anxious Agitation: 1-Slight > Activity Paroxysmal Sweats: No Perspiration Orientation: 0-Oriented Tacttile Disturbances: 0-None Auditory Disturbances: 0-None Visual Disturbances: 0-None Headache: 0-None Present CIWA-Ar Total Score: 3
== END 2018-12-16 09:04 | disposition home or self-care (01) | DRG 774 ==
LOC: YASAS 01:01 → Y3N 01:51
PROVIDERS: ADMIT Surgery; ATTEND Surgery
PROC: HZ2ZZZZ Detoxification Services for Substance Abuse Treatment (ICD-10-PCS; principal; 2018-12-13)
DX: F10.230 Alcohol dependence with withdrawal, uncomplicated (principal); F14.20 Cocaine dependence, uncomplicated; F17.213 Nicotine dependence, cigarettes, with withdrawal; F19.24 Other psychoactive substance dependence with psychoactive substance-induced mood disorder; H18.413 Arcus senilis, bilateral; H21.569 Pupillary abnormality, unspecified eye; Z87.440 Personal history of urinary (tract) infections
CPT/HCPCS: 36415; 80053; 85027

== ENCOUNTER 2019-02-17 08:41 | Inpatient (IN) | payer OTHER ==
--- NOTE | 2019-02-17 09:13 | HP ---
CIWA Score Nausea/Vomitin Muscle Tremors: 3 Anxiety: 1-Mildly Anxious Agitation: 1-Slight > Activity Paroxysmal Sweats: 1-Minimal Palms Moist Orientation: 0-Oriented Tacttile Disturbances: 1-Very Mild Itch/Numbness Auditory Disturbances: 0-None Visual Disturbances: 0-None Headache: 0-None Present (not appropriate for detox but can e admitted for rehab) CIWA-Ar Total Score: 9 - Admission Criteria OASAS Guidelines: Admission for Medically Managed Detox: Requires at least one of the followin. CIWA greater than 12 2. Seizures within the past 24 hours 3. Delirium tremens within the past 24 hours 4. Hallucinations within the past 24 hours 5. Acute intervention needed for co occurring medical disorder 6. Acute intervention needed for co occurring psychiatric disorder 7. Severe withdrawal that cannot be handled at a lower level of care (continued vomiting, continued diarrhea, abnormal vital signs) requiring intravenous medication and/or fluids 8. Admitting History and Physical - Admission Chief Complaint: " I want to be admitted for rehab." History of Present Illness: 68 year old black male with alcohol dependence with withdrawals. He denies any black outs. No seizures from withdrawals. He drinks 2 six packs of beer per day. He last drank yesterday morning. He smokes crack $50 per day. He last smoked yesterday morning. He is here for rehab. CIWA was 9 PMH: None Psurg: None Psych: None Meds: None All: NKDA Patient is homeless and not in prison system. He stays on occasion in friends ' houses. - Smoking History Smoking history: Current every day smoker Have you smoked in the past 12 months: Yes Aproximately how many cigarettes per day: 20 - Alcohol/Substance Use Hx Alcohol Use: Yes Admission ROS [facility] Chief Complaint: " I want to be admitted for rehab." Allergies/Adverse Reactions: Allergies Allergy/AdvReac Type Severity Reaction Status Date / Time No Known Allergies Allergy Verified 01/12/19 08:49 History of Present Illness: 68 year old black male with alcohol dependence with withdrawals. He denies any black outs. No seizures from withdrawals. He drinks 2 six packs of beer per day. He last drank yesterday morning. He smokes crack $50 per day. He last smoked yesterday morning. He is here for rehab. CIWA was 9 PMH: None Psurg: None Psych: None Meds: None All: NKDA Patient is homeless and not in prison system. He stays on occasion in friends ' houses. Patient has poor coping skills and poor support systems. - Ebola screening Have you traveled outside of the country in the last 21 days: No Have you had contact with anyone from an Ebola affected area: No Do you have a fever: No Patient History - Patient Medical History Hx Anemia: No Hx Asthma: No Hx Chronic Obstructive Pulmonary Disease (COPD): No Hx Cancer: No Hx Cardiac Disorders: No Hx Congestive Heart Failure: No Hx Hypertension: No Hx Hypercholesterolemia: No Hx Pacemaker: No HX Cerebrovascular Accident: No Hx Seizures: No Hx Dementia: No Hx Diabetes: No Hx Gastrointestinal Disorders: No Hx Liver Disease: No Hx Genitourinary Disorders: No Hx Sexually Transmitted Disorders: No Hx Renal Disease (ESRD): No Hx Thyroid Disease: No Hx Human Immunodeficiency Virus (HIV): No (2018 negative) Hx Hepatitis C: No (NEGATIVE HX) Hx Depression: No Hx Suicide Attempt: No Hx Bipolar Disorder: No Hx Schizophrenia: No - Patient Surgical History Past Surgical History: No Hx Neurologic Surgery: No Hx Cataract Extraction: No Hx Cardiac Surgery: No Hx Lung Surgery: No Hx Breast Surgery: No Hx Breast Biopsy: No Hx Abdominal Surgery: No Hx Appendectomy: No Hx Cholecystectomy: No Hx Genitourinary Surgery: No Hx Section: No Hx Orthopedic Surgery: No Anesthesia Reaction: No - PPD History Previous Implant?: Yes Documented Results: Negative w/proof Implanted On Prior [facility] Admission?: Yes Date: 08/01/18 Results: 0 mm PPD to be Administered?: Yes - Smoking Cessation Smoking history: Current every day smoker Have you smoked in the past 12 months: Yes Aproximately how many cigarettes per day: 20 Cigars Per Day: 0 Hx Chewing Tobacco Use: No Initiated information on smoking cessation: Yes 'Breaking Loose' booklet given: 02/17/19 - Substances abused Alcohol Substance route: Oral Frequency: Daily Amount used: 2-3 6pks beer Age of first use: 16 Date of last use: 02/16/19 Cocaine Substance route: Smoking Frequency: Daily Amount used: $100 Age of first use: 16 Date of last use: 02/16/19 Crack Substance route: Smoking Frequency: Daily Amount used: $50 Age of first use: 36 Date of last use: 02/16/19 Admission Physical Exam [facility] - Vital Signs Vital Signs: Vital Signs - 24 hr 02/17/19 08:52 Temperature 97.2 F L Pulse Rate 82 Respiratory 14 Rate Blood Pressure 103/60 - Physical General Appearance: Yes: Mild Distress HEENTM: Yes: EOMI, Hearing grossly Normal, Normocephalic, Pharynx Normal, Tm's normal Respiratory: Yes: Chest Non-Tender, Lungs Clear, Normal Breath Sounds, No Respiratory Distress, No Accessory Muscle Use Neck: Yes: No masses,lesions,Nodules, Trachea in good position Breast: Yes: Within Normal Limits Abdominal: Yes: Normal Bowel Sounds, Non Tender, Protuberent Genitourinary: Yes: Within Normal Limits Back: Yes: Normal Inspection Musculoskeletal: Yes: full range of Motion, Gait Steady Extremities: Yes: Normal Capillary Refill, Normal Inspection, Normal Range of Motion, Non-Tender 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 - Detox or Rehab [facility] Level of Care: Medically Supervised Screened but not Admitted - Documentation of Visit Screened but not Admitted: No Breathalyzer - Breathalyzer Breathalyzer: 0 Vital Signs - Vital Signs Vital signs refused: No Temperature: 97.2 F Temperature source: Oral Pulse Rate: 82 Respiratory Rate: 14 Blood Pressure: 103/60 BP Location: Left Arm Blood Pressure position: Sitting - Height Height: 5 ft 9 in - Weight Weight: 192 lb Weight measurement method: Standing scale - BMI Body Mass Index (BMI): 28.3 - Bowel Function Bowel Movement: Yes Urine Drug Screen - Test Device Lot number: [id number] Expiration date: 10/04/20 - Control Is test valid?: Yes - Results Drug screen NEGATIVE: No Urine drug screen results: [facility] Inpatient Rehab Admission - Rehab Decision to Admit Inpatient rehab admission?: Yes - Initial Determination Are CD services needed?: Yes Free of communicable disease: Yes Not in need of hospitalization: Yes - Rehab Admission Criteria Previous failed treatment: Yes Poor recovery environment: Yes Comorbidities: Yes Lacks judgement: Yes Patient is meeting Inpatient Rehab admission criteria:: Yes
[2019-02-17 09:22] VITALS: BMI 28.3
[2019-02-17] MEDS ORDERED: MAGNESIUM CITRATE 300 ML BOTTLE PO PRN (09:22)
[2019-02-17] MEDS ORDERED: MAGNESIUM HYDROX 2400MG/30ML ORAL SUSPENSION 30 ML CUP PO PRN (09:22)
[2019-02-17] MEDS ORDERED: MENTHOL/PHENOL 1 EACH UD MM PRN (09:22)
[2019-02-17] MEDS ORDERED: ACETAMINOPHEN 325 MG TABLET (FP) PO PRN (09:22)
[2019-02-17] MEDS ORDERED: MAG HYDROX/AL HYDROX/SIMETH 30 ML UNIT-DOSE CUP PO PRN (09:22)
[2019-02-17] MEDS ORDERED: P-EPHED 60MG/TRIPROLIDI 2.5MG TABLET PO PRN (09:22)
[2019-02-17] MEDS ORDERED: LOPERAMIDE HCL 2 MG CAPSULE PO PRN (09:22)
[2019-02-17] MEDS ORDERED: guaiFENesin 200 MG/10 ML 10 ML UNIT-DOSE CUPS PO PRN (09:22)
[2019-02-17] MEDS: PRENATAL VITAMINS W/ FOLIC ACID TABLET (FP) PO SCH (11:09)
[2019-02-17 13:00] LABS: HEMATOCRIT 41.9 % (35.4-49); HEMOGLOBIN 14.3 GM/dL (11.7-16.9); MCH 28.5 pg (25.7-33.7); MEAN CELL VOLUME 83.8 fl (80-96); MEAN PLT VOLUME 8.1 fl (7.5-11.1); PLATELET COUNT 271 K/MM3 (134-434); RDW 15.3 % (11.9-15.9)
[2019-02-17 13:57] LABS: ALBUMIN 3.8 g/dl (3.4-5.0); BILIRUBIN,TOTAL 0.5 mg/dL (0.2-1); BLOOD UREA NITROGEN 20.6 mg/dL (7-18); CALCIUM 9.5 mg/dL (8.5-10.1); CREATININE 1.2 mg/dL (0.55-1.3); POTASSIUM 4.1 mmol/L (3.5-5.1); TOT PROT 7.4 g/dl (6.4-8.2)
[2019-02-17] MEDS: THIAMINE HCL 100 MG TABLET (FP) PO SCH (21:46)
[2019-02-17] MEDS ORDERED: MELATONIN 5 MG TABLETS PO PRN (22:00)
[2019-02-18] MEDS: PRENATAL VITAMINS W/ FOLIC ACID TABLET (FP) PO SCH (10:31)
[2019-02-18 12:09] LABS: URINE APPEARANCE CLEAR; URINE BILIRUBIN NEGATIVE (NEGATIVE); URINE COLOR YELLOW; URINE GLUCOSE (UA) NEGATIVE (NEGATIVE); URINE KETONE NEGATIVE (NEGATIVE); URINE LEUK ESTERASE NEGATIVE (NEGATIVE); URINE NITRITE NEGATIVE (NEGATIVE); URINE PROTEIN NEGATIVE (NEGATIVE); URINE UROBILINOGEN 0.2 mg/dL (0.2-1.0)
[2019-02-18] MEDS: THIAMINE HCL 100 MG TABLET (FP) PO SCH (21:33)
[2019-02-19] MEDS: IBUPROFEN 400 MG TABLET (FP) PO PRN (04:55)
[2019-02-19] MEDS: PRENATAL VITAMINS W/ FOLIC ACID TABLET (FP) PO SCH (10:54)
[2019-02-19] MEDS: THIAMINE HCL 100 MG TABLET (FP) PO SCH (21:32)
[2019-02-20] MEDS: IBUPROFEN 400 MG TABLET (FP) PO PRN (10:30)
[2019-02-20] MEDS: PRENATAL VITAMINS W/ FOLIC ACID TABLET (FP) PO SCH (10:30)
[2019-02-20] MEDS: THIAMINE HCL 100 MG TABLET (FP) PO SCH (21:44)
[2019-02-21] MEDS: PRENATAL VITAMINS W/ FOLIC ACID TABLET (FP) PO SCH (10:55)
[2019-02-21] MEDS: IBUPROFEN 400 MG TABLET (FP) PO PRN (10:56)
[2019-02-21] MEDS: THIAMINE HCL 100 MG TABLET (FP) PO SCH (21:32)
[2019-02-22 07:36] VITALS: BP 121/68; PULSE 67; TEMP 97.6
[2019-02-22] MEDS: PRENATAL VITAMINS W/ FOLIC ACID TABLET (FP) PO SCH (10:31)
--- NOTE | 2019-02-22 10:49 | DS ---
[facility] Rehab Discharge Summary - [facility] Rehab Discharge Summary Admission Date: 02/17/19 Discharge Date: 02/22/19 - History Present History: Alcohol dependence, Cannabis dependence, Cocaine dependence - Discharge Physical Exam Vital Signs: Vital Signs Temperature 97.6 F 02/22/19 07:34 Pulse Rate 67 02/22/19 07:34 Respiratory Rate 18 02/22/19 07:34 Blood Pressure 121/68 02/22/19 07:34 O2 Sat by Pulse Oximetry (%) Pertinent Admission Physical Exam Findings: Requesting rehab Laboratory Last Values WBC 4.0 K/mm3 (4.0-10.0) 02/17/19 09:30 RBC 5.00 M/mm3 (4.00-5.60) 02/17/19 09:30 Hgb 14.3 GM/dL (11.7-16.9) 02/17/19 09:30 Hct 41.9 % (35.4-49) 02/17/19 09:30 MCV 83.8 fl (80-96) 02/17/19 09:30 MCH 28.5 pg (25.7-33.7) 02/17/19 09:30 MCHC 34.0 g/dl (32.0-35.9) 02/17/19 09:30 RDW 15.3 % (11.9-15.9) 02/17/19 09:30 Plt Count 271 K/MM3 (134-434) 02/17/19 09:30 MPV 8.1 fl (7.5-11.1) 02/17/19 09:30 Sodium 140 mmol/L (136-145) 02/17/19 09:30 Potassium 4.1 mmol/L (3.5-5.1) 02/17/19 09:30 Chloride 109 mmol/L (98-107) H 02/17/19 09:30 Carbon Dioxide 25 mmol/L (21-32) 02/17/19 09:30 Anion Gap 7 MMOL/L (8-16) L 02/17/19 09:30 BUN 20.6 mg/dL (7-18) H 02/17/19 09:30 Creatinine 1.2 mg/dL (0.55-1.3) 02/17/19 09:30 Est GFR (CKD-EPI)AfAm 72.09 02/17/19 09:30 Est GFR (CKD-EPI)NonAf 62.20 02/17/19 09:30 Random Glucose 104 mg/dL (74-106) 02/17/19 09:30 Calcium 9.5 mg/dL (8.5-10.1) 02/17/19 09:30 Total Bilirubin 0.5 mg/dL (0.2-1) 02/17/19 09:30 AST 34 U/L (15-37) 02/17/19 09:30 ALT 33 U/L (13-61) 02/17/19 09:30 Alkaline Phosphatase 111 U/L (45-117) 02/17/19 09:30 Total Protein 7.4 g/dl (6.4-8.2) 02/17/19 09:30 Albumin 3.8 g/dl (3.4-5.0) 02/17/19 09:30 Urine Color Yellow 02/18/19 08:43 Urine Appearance Clear 02/18/19 08:43 Urine pH 5.0 (5.0-8.0) 02/18/19 08:43 Ur Specific [place] 1.018 (1.010-1.035) 02/18/19 08:43 Urine Protein Negative (NEGATIVE) 02/18/19 08:43 Urine Glucose (UA) Negative (NEGATIVE) 02/18/19 08:43 Urine Ketones Negative (NEGATIVE) 02/18/19 08:43 Urine Blood Negative (NEGATIVE) 02/18/19 08:43 Urine Nitrite Negative (NEGATIVE) 02/18/19 08:43 Urine Bilirubin Negative (NEGATIVE) 02/18/19 08:43 Urine Urobilinogen 0.2 mg/dL (0.2-1.0) 02/18/19 08:43 Ur Leukocyte Esterase Negative (NEGATIVE) 02/18/19 08:43 RPR Titer Nonreactive (NONREACTIVE) 02/17/19 09:30 HIV 1&2 Antibody Screen Negative 02/17/19 09:30 HIV P24 Antigen Negative 02/17/19 09:30 - Treatment Discharge Condition: Responded well Hospital Course: Patient with no incidents during the course of stay, he has requested early discharge with no significant reason - Medication Discharge Medications: Ambulatory Orders NK [No Known Home Medication] 02/21/17 - Medication-Assisted Treatment (MAT) Medication-Assisted Treatment (MAT): No - Discharge Instructions Diet, activity, other medical instructions: Diet: Regular Activity: No restrictions Other medical instructions: NA - Diagnosis (1) Alcohol dependence with uncomplicated withdrawal Current Visit: Yes Status: Acute (2) Cocaine dependence, uncomplicated Current Visit: Yes Status: Chronic (3) Nicotine dependence Current Visit: No Status: Acute Qualifiers: Nicotine product type: cigarettes Substance use status: in withdrawal Qualified Code(s): F17.213 - Nicotine dependence, cigarettes, with withdrawal - AMA Did Patient Leave Against Medical Advice: No Additional Comments: Early discharge
== END 2019-02-22 11:00 | disposition home or self-care (01) | DRG 772 ==
LOC: YASAS 08:41 → Y5N 10:01
PROVIDERS: ADMIT Neuromusculoskeletal Medicine & OMM; ATTEND Neuromusculoskeletal Medicine & OMM
PROC: HZ42ZZZ Group Counseling for Substance Abuse Treatment, Cognitive-Behavioral (ICD-10-PCS; principal; 2019-02-17)
DX: F10.20 Alcohol dependence, uncomplicated (principal); F14.20 Cocaine dependence, uncomplicated; F12.20 Cannabis dependence, uncomplicated; F17.210 Nicotine dependence, cigarettes, uncomplicated; Z59.0 Homelessness
CPT/HCPCS: 36415; 80053; 81003; 85027; 86593; 87389

== ENCOUNTER 2019-11-17 09:43 | Inpatient (IN) | payer OTHER ==
--- NOTE | 2019-11-17 10:04 | BHS.RME ---
Substance Use & Tx History - Substance Use History Alcohol Substance amount: 6 pack beers Frequency of use: Daily Substance route: Oral Date of Last Use: 11/16/19 Cocaine-Crack Substance amount: $50 Frequency of use: Daily Substance route: Smoking Date of Last Use: 11/16/19 Nicotine Substance amount: 2 packs Frequency of use: Daily Substance route: Smoking Date of Last Use: 11/17/19 Physical/Psych/Mental Status - Behavior General Behavior: Increased activity (restlessness, agitation) Eye Contact: Normal - Cooperativeness Cooperativeness: Cooperative - Thinking Thought Processes: Tight, Logical, Goal Directed - Physical Health Problems Is patient presently having any pain?: No Does patient presently have any injuries (include location): No Does patient currently have a fever: No Is patient : No CIWA Nausea/Vomitin-No Nausea/No Vomiting Muscle Tremors: 3 Anxiety: 3 Agitation: 3 Paroxysmal Sweats: 2 Orientation: 1-Uncertain about Date Tacttile Disturbances: 0-None Auditory Disturbances: 0-None Visual Disturbances: 0-None Headache: 2-Mild CIWA-Ar Total Score: 14
[2019-11-17 10:48] VITALS: BMI 25.4
--- NOTE | 2019-11-17 11:25 | HP ---
CIWA Score Nausea/Vomitin-No Nausea/No Vomiting Muscle Tremors: 3 Anxiety: 3 Agitation: 3 Paroxysmal Sweats: 2 Orientation: 1-Uncertain about Date Tacttile Disturbances: 0-None Auditory Disturbances: 0-None Visual Disturbances: 0-None Headache: 2-Mild CIWA-Ar Total Score: 14 - Admission Criteria OASAS Guidelines: Admission for Medically Managed Detox: Requires at least one of the followin. CIWA greater than 12 2. Seizures within the past 24 hours 3. Delirium tremens within the past 24 hours 4. Hallucinations within the past 24 hours 5. Acute intervention needed for co occurring medical disorder 6. Acute intervention needed for co occurring psychiatric disorder 7. Severe withdrawal that cannot be handled at a lower level of care (continued vomiting, continued diarrhea, abnormal vital signs) requiring intravenous medication and/or fluids 8. Admitting History and Physical - Admission Chief Complaint: Mr. Carrington is a 69 yo man who presents to [facility] stating "I need help". He is here requesting detox from alcohol. History of Present Illness: Mr. Carrington is a 69 yo man who presents to [facility] stating "I need help". He is here requesting detox from alcohol. He was last here between October 17 an 2019. He completed detox and left, "on the streets", and relapsed immediately. PMH/PSH/Psych/Legal: none SoC: homeless, on the streets Substance Use History Alcohol Substance amount: 6 pack beers Frequency of use: Daily Substance route: Oral Date of Last Use: 11/16/19 First use age 16 y No seizures. Blackout 2 days ago Cocaine-Crack Substance amount: $50 Frequency of use: Daily Substance route: Smoking Date of Last Use: 11/16/19 First use age 36 y Nicotine Substance amount: 2 packs Frequency of use: Daily Substance route: Smoking Date of Last Use: 11/17/19 First use age 16 y History Source: Patient Limitations to Obtaining History: No Limitations - Smoking History Smoking history: Current every day smoker Have you smoked in the past 12 months: Yes Aproximately how many cigarettes per day: 30 - Alcohol/Substance Use Hx Alcohol Use: Yes Admission ROS S - HPI Allergies/Adverse Reactions: Allergies Allergy/AdvReac Type Severity Reaction Status Date / Time No Known Allergies Allergy Verified 11/17/19 10:43 Exam Limitations: No Limitations - Ebola screening Have you been sick,other than usual withdrawal symptoms: No Do you have a fever: No - Review of Systems Constitutional: Unintentional Wgt. Loss (15 lbs in an unspecified period of time) EENT: reports: Blurred Vision (reading glasses with him) Respiratory: reports: No Symptoms reported Cardiac: reports: No Symptoms Reported GI: reports: No Symptoms Reported : reports: No Symptoms Reported Musculoskeletal: reports: Joint Pain (knees, arthritis) Integumentary: reports: No Symptoms Reported Neuro: reports: Headache Endocrine: reports: No Symptoms Reported Hematology: reports: No Symptoms Reported Psychiatric: reports: No Sypmtoms Reported Patient History - Patient Medical History Hx Anemia: No Hx Asthma: No Hx Chronic Obstructive Pulmonary Disease (COPD): No Hx Cancer: No Hx Cardiac Disorders: No Hx Congestive Heart Failure: No Hx Hypertension: No Hx Hypercholesterolemia: No Hx Pacemaker: No HX Cerebrovascular Accident: No Hx Seizures: No Hx Dementia: No Hx Diabetes: No Hx Gastrointestinal Disorders: No Hx Liver Disease: No Hx Genitourinary Disorders: No Hx Sexually Transmitted Disorders: No Hx Renal Disease (ESRD): No Hx Thyroid Disease: No Hx Human Immunodeficiency Virus (HIV): No Hx Hepatitis C: No Hx Depression: No Hx Suicide Attempt: No Hx Bipolar Disorder: No Hx Schizophrenia: No - Patient Surgical History Past Surgical History: No Hx Neurologic Surgery: No Hx Cataract Extraction: No Hx Cardiac Surgery: No Hx Lung Surgery: No Hx Breast Surgery: No Hx Breast Biopsy: No Hx Abdominal Surgery: No Hx Appendectomy: No Hx Cholecystectomy: No Hx Genitourinary Surgery: No Hx Section: No Hx Orthopedic Surgery: No Anesthesia Reaction: No - PPD History Previous Implant?: Yes Documented Results: Negative w/proof Implanted On Prior R Admission?: Yes Date: 10/20/19 Results: neg - Smoking Cessation Smoking history: Current every day smoker Have you smoked in the past 12 months: Yes Aproximately how many cigarettes per day: 30 Cigars Per Day: 0 Hx Chewing Tobacco Use: No Initiated information on smoking cessation: Yes 'Breaking Loose' booklet given: 11/17/19 - Substances abused Alcohol Substance route: Oral Frequency: Daily Amount used: 2 six pk beer Age of first use: 16 Date of last use: 11/16/19 Crack Substance route: Smoking Frequency: Daily Amount used: $50-100 Age of first use: 16 Date of last use: 11/16/19 Admission Physical Exam [facility] - Vital Signs Vital Signs: Vital Signs - 24 hr 11/17/19 10:44 Temperature 97.1 F L Pulse Rate 79 Respiratory 20 Rate Blood Pressure 140/82 - Physical General Appearance: Yes: No Apparent Distress, Nourished, Appropriately Dressed HEENTM: Yes: EOMI, Hearing grossly Normal, Normocephalic, Normal Voice, Other (increased blink frequency) Respiratory: Yes: Lungs Clear, Normal Breath Sounds, No Accessory Muscle Use Neck: Yes: Within Normal Limits, Supple Breast: Yes: Breast Exam Deferred Cardiology: Yes: Regular Rhythm, Regular Rate, S1, S2 Abdominal: Yes: Normal Bowel Sounds, Non Tender, Flat, Soft Back: Yes: Normal Inspection Musculoskeletal: Yes: Gait Steady Extremities: Yes: Normal Inspection, Non-Tender 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: Yes: Within Normal Limits Integumentary: Yes: Normal Color, Dry, Warm - Diagnostic (1) Alcohol dependence with uncomplicated withdrawal Current Visit: Yes Status: Acute (2) Cocaine dependence, uncomplicated Current Visit: Yes Status: Acute (3) Nicotine dependence Current Visit: Yes Status: Acute Qualifiers: Nicotine product type: cigarettes Substance use status: in withdrawal Qualified Code(s): F17.213 - Nicotine dependence, cigarettes, with withdrawal Cleared for Admission [facility] - Detox or Rehab [facility] Level of Care: Medically Managed Detox Regimen/Protocol: Librium Breathalyzer - Breathalyzer Breathalyzer: 0 Urine Drug Screen - Test Device Lot number: [id number] Expiration date: 01/04/21 - Control Is test valid?: Yes - Results Drug screen NEGATIVE: No Urine drug screen results: [facility] Inpatient Rehab Admission - Rehab Decision to Admit Inpatient rehab admission?: No
[2019-11-17] MEDS ORDERED: MAGNESIUM CITRATE 300 ML BOTTLE PO PRN (11:31)
[2019-11-17] MEDS ORDERED: MENTHOL/PHENOL 1 EACH UD MM PRN (11:31)
[2019-11-17] MEDS ORDERED: MAGNESIUM HYDROX 2400MG/30ML ORAL SUSPENSION 30 ML CUP PO PRN (11:31)
[2019-11-17] MEDS ORDERED: MAG HYDROX/AL HYDROX/SIMETH 30 ML UNIT-DOSE CUP PO PRN (11:31)
[2019-11-17] MEDS ORDERED: NICOTINE POLACRILEX 2 MG GUM BUC PRN (11:31)
[2019-11-17] MEDS ORDERED: IBUPROFEN 400 MG TABLET (FP) PO PRN (11:31)
[2019-11-17] MEDS ORDERED: ONDANSETRON *ODT* 4 MG TABLET SL PRN (11:31)
[2019-11-17] MEDS ORDERED: ACETAMINOPHEN 325 MG TABLET (FP) PO PRN ×2 (11:31)
[2019-11-17] MEDS ORDERED: METHOCARBAMOL 500 MG TABLET PO PRN (11:31)
[2019-11-17] MEDS ORDERED: chlordiazePOXIDE HCL 25 MG CAPSULE PO PRN (11:31)
[2019-11-17] MEDS ORDERED: BISMUTH SUBSALICYLATE 262 MG/15 ML BTL PO PRN (11:31)
[2019-11-17] MEDS ORDERED: hydrOXYzine PAMOATE 25 MG CAPSULE (FP) PO PRN (11:47)
[2019-11-17] MEDS: NICOTINE 21 MG/24 HOURS TOPICAL PATCH TD SCH (12:14)
[2019-11-17] MEDS: PRENATAL VITAMINS W/ FOLIC ACID TABLET (FP) PO SCH (12:15)
[2019-11-17] MEDS ORDERED: hydrOXYzine PAMOATE 25 MG CAPSULE (FP) PO SCH (14:00)
[2019-11-17 16:15] LABS: HEMATOCRIT 40.1 % (35.4-49); HEMOGLOBIN 13.3 GM/dL (11.7-16.9); MCH 28.8 pg (25.7-33.7); MCHC 33.2 g/dl (32.0-35.9); MEAN CELL VOLUME 86.9 fl (80-96); MEAN PLT VOLUME 8.1 fl (7.5-11.1); PLATELET COUNT 258 K/MM3 (134-434); RBC 4.61 M/mm3 (4.00-5.60); RDW 15.4 % (11.9-15.9); WHITE BLOOD COUNT 4.1 K/mm3 (4.0-10.0)
[2019-11-17] MEDS: chlordiazePOXIDE HCL 25 MG CAPSULE PO SCH ×2 (17:36→22:37)
[2019-11-17 18:05] LABS: ALBUMIN 3.7 g/dl (3.4-5.0); ALK PHOS 81 U/L (45-117); BLOOD UREA NITROGEN 11.9 mg/dL (7-18); CALCIUM 9.3 mg/dL (8.5-10.1); CHLORIDE 108 mmol/L (98-107); CO2 25 mmol/L (21-32); CREATININE 1.1 mg/dL (0.55-1.3); GLUCOSE,RANDOM 97 mg/dL (74-106); POTASSIUM 3.9 mmol/L (3.5-5.1); SGOT/AST 26 U/L (15-37); SGPT/ALT 21 U/L (13-61); SODIUM 143 mmol/L (136-145)
[2019-11-17] MEDS: THIAMINE HCL 100 MG TABLET (FP) PO SCH (22:37)
[2019-11-17] MEDS: MELATONIN 5 MG TABLETS PO SCH (22:42)
[2019-11-18] MEDS: chlordiazePOXIDE HCL 25 MG CAPSULE PO SCH ×4 (05:39→22:03)
--- NOTE | 2019-11-18 10:29 | PN ---
[facility] CIWA - CIWA Score Nausea/Vomitin-No Nausea/No Vomiting Muscle Tremors: 3 Anxiety: 2 Agitation: 3 Paroxysmal Sweats: 2 Orientation: 0-Oriented Tacttile Disturbances: 0-None Auditory Disturbances: 0-None Visual Disturbances: 0-None Headache: 0-None Present CIWA-Ar Total Score: 10 S Progress Note (SOAP) Subjective: body aches sweats shakes interrupted sleep irritable Objective: 11/18/19 10:20 Vital Signs Temperature 97.3 F L 11/18/19 08:43 Pulse Rate 73 11/18/19 08:43 Respiratory Rate 17 11/18/19 08:43 Blood Pressure 115/63 11/18/19 08:43 O2 Sat by Pulse Oximetry (%) 98 11/18/19 05:35 Laboratory Tests 11/17/19 11/17/19 11/17/19 11:40 11:40 11:40 WBC 4.1 RBC 4.61 Hgb 13.3 Hct 40.1 MCV 86.9 MCH 28.8 MCHC 33.2 RDW 15.4 Plt Count 258 MPV 8.1 Sodium 143 Potassium 3.9 Chloride 108 H Carbon Dioxide 25 Anion Gap No Result Required. BUN 11.9 Creatinine 1.1 Est GFR (CKD-EPI)AfAm 79.52 Est GFR (CKD-EPI)NonAf 68.61 Random Glucose 97 Calcium 9.3 Total Bilirubin 1.0 AST 26 ALT 21 Alkaline Phosphatase 81 Total Protein 7.0 Albumin 3.7 Syphilis Serology Non-reactive COVID-19 (AIRAM) 11/17/19 11:40 WBC RBC Hgb Hct MCV MCH MCHC RDW Plt Count MPV Sodium Potassium Chloride Carbon Dioxide Anion Gap BUN Creatinine Est GFR (CKD-EPI)AfAm Est GFR (CKD-EPI)NonAf Random Glucose Calcium Total Bilirubin AST ALT Alkaline Phosphatase Total Protein Albumin Syphilis Serology COVID-19 (AIRAM) Not detected lab noted aaox3 ambulating no acute distress Assessment: 11/18/19 10:29 withdrawals Plan: continue detox increase fluids
[2019-11-18] MEDS: PRENATAL VITAMINS W/ FOLIC ACID TABLET (FP) PO SCH (10:56)
[2019-11-18] MEDS: NICOTINE 21 MG/24 HOURS TOPICAL PATCH TD SCH (10:56)
[2019-11-18] MEDS: THIAMINE HCL 100 MG TABLET (FP) PO SCH (22:03)
[2019-11-18] MEDS: MELATONIN 5 MG TABLETS PO SCH (22:04)
[2019-11-19] MEDS: chlordiazePOXIDE HCL 25 MG CAPSULE PO SCH ×4 (05:35→22:26)
[2019-11-19] MEDS: PRENATAL VITAMINS W/ FOLIC ACID TABLET (FP) PO SCH (11:03)
[2019-11-19] MEDS: NICOTINE 21 MG/24 HOURS TOPICAL PATCH TD SCH (11:03)
--- NOTE | 2019-11-19 13:47 | PN ---
S CIWA - CIWA Score Nausea/Vomitin-Mild Nausea/No Vomiting Muscle Tremors: 2 Anxiety: 2 Agitation: 2 Paroxysmal Sweats: No Perspiration Orientation: 0-Oriented Tacttile Disturbances: 0-None Auditory Disturbances: 0-None Visual Disturbances: 0-None Headache: 1-Very Mild CIWA-Ar Total Score: 8 BHS Progress Note (SOAP) Subjective: alert,irritable,anxious ,interrupted sleep,aching pain in the body,tremor Objective: 11/19/19 13:46 Vital Signs Temperature 97.5 F L 11/19/19 08:55 Pulse Rate 70 11/19/19 08:55 Respiratory Rate 19 11/19/19 08:55 Blood Pressure 123/67 11/19/19 08:55 O2 Sat by Pulse Oximetry (%) 95 11/19/19 08:55 11/19/19 13:46 Laboratory Last Values WBC 4.1 K/mm3 (4.0-10.0) 11/17/19 11:40 RBC 4.61 M/mm3 (4.00-5.60) 11/17/19 11:40 Hgb 13.3 GM/dL (11.7-16.9) 11/17/19 11:40 Hct 40.1 % (35.4-49) 11/17/19 11:40 MCV 86.9 fl (80-96) 11/17/19 11:40 MCH 28.8 pg (25.7-33.7) 11/17/19 11:40 MCHC 33.2 g/dl (32.0-35.9) 11/17/19 11:40 RDW 15.4 % (11.9-15.9) 11/17/19 11:40 Plt Count 258 K/MM3 (134-434) 11/17/19 11:40 MPV 8.1 fl (7.5-11.1) 11/17/19 11:40 Sodium 143 mmol/L (136-145) 11/17/19 11:40 Potassium 3.9 mmol/L (3.5-5.1) 11/17/19 11:40 Chloride 108 mmol/L (98-107) H 11/17/19 11:40 Carbon Dioxide 25 mmol/L (21-32) 11/17/19 11:40 Anion Gap No Result Required. 11/17/19 11:40 BUN 11.9 mg/dL (7-18) 11/17/19 11:40 Creatinine 1.1 mg/dL (0.55-1.3) 11/17/19 11:40 Est GFR (CKD-EPI)AfAm 79.52 11/17/19 11:40 Est GFR (CKD-EPI)NonAf 68.61 11/17/19 11:40 Random Glucose 97 mg/dL (74-106) 11/17/19 11:40 Calcium 9.3 mg/dL (8.5-10.1) 11/17/19 11:40 Total Bilirubin 1.0 mg/dL (0.2-1) 11/17/19 11:40 AST 26 U/L (15-37) 11/17/19 11:40 ALT 21 U/L (13-61) 11/17/19 11:40 Alkaline Phosphatase 81 U/L (45-117) 11/17/19 11:40 Total Protein 7.0 g/dl (6.4-8.2) 11/17/19 11:40 Albumin 3.7 g/dl (3.4-5.0) 11/17/19 11:40 Syphilis Serology Non-reactive (NONREACTIVE) 11/17/19 11:40 COVID-19 (AIRAM) Not detected (Not Detected) 11/17/19 11:40 Assessment: 11/19/19 13:47 withdrawal symptom Plan: continue detox librium regimen
[2019-11-19] MEDS: THIAMINE HCL 100 MG TABLET (FP) PO SCH (22:26)
[2019-11-19] MEDS: MELATONIN 5 MG TABLETS PO SCH (22:27)
[2019-11-20] MEDS ORDERED: chlordiazePOXIDE HCL 10 MG CAPSULE PO PRN
[2019-11-20] MEDS: chlordiazePOXIDE HCL 10 MG CAPSULE PO SCH ×4 (06:37→23:00)
--- NOTE | 2019-11-20 09:45 | PN ---
S CIWA - CIWA Score Nausea/Vomitin-No Nausea/No Vomiting Muscle Tremors: 2 Anxiety: 2 Agitation: 2 Paroxysmal Sweats: 2 Orientation: 0-Oriented Tacttile Disturbances: 0-None Auditory Disturbances: 0-None Visual Disturbances: 0-None Headache: 0-None Present CIWA-Ar Total Score: 8 BHS Progress Note (SOAP) Subjective: tired body aches Objective: 11/20/19 09:47 Vital Signs Temperature 98.0 F 11/20/19 05:28 Pulse Rate 61 11/20/19 05:28 Respiratory Rate 16 11/20/19 05:28 Blood Pressure 116/74 11/20/19 05:28 O2 Sat by Pulse Oximetry (%) 95 11/20/19 05:28 aaox3 ambulating no acute distress Assessment: 11/20/19 09:47 withdrawals Plan: continue detox
[2019-11-20] MEDS: NICOTINE 21 MG/24 HOURS TOPICAL PATCH TD SCH (10:56)
[2019-11-20] MEDS: PRENATAL VITAMINS W/ FOLIC ACID TABLET (FP) PO SCH (10:56)
[2019-11-20] MEDS: MELATONIN 5 MG TABLETS PO SCH (23:00)
[2019-11-20] MEDS: THIAMINE HCL 100 MG TABLET (FP) PO SCH (23:00)
[2019-11-21] MEDS ORDERED: chlordiazePOXIDE HCL 10 MG CAPSULE PO SCH (05:00)
--- NOTE | 2019-11-21 10:06 | PN ---
[facility] CIWA - CIWA Score Nausea/Vomitin-No Nausea/No Vomiting Muscle Tremors: None Anxiety: 1-Mildly Anxious Agitation: 0-Normal Activity Paroxysmal Sweats: No Perspiration Orientation: 0-Oriented Tacttile Disturbances: 0-None Auditory Disturbances: 0-None Visual Disturbances: 0-None Headache: 0-None Present CIWA-Ar Total Score: 1 BHS Progress Note (SOAP) Subjective: alert,no complaint Objective: 11/21/19 10:05 Vital Signs Temperature 97.8 F 11/21/19 08:30 Pulse Rate 75 11/21/19 08:30 Respiratory Rate 16 11/21/19 08:30 Blood Pressure 120/62 11/21/19 08:30 O2 Sat by Pulse Oximetry (%) 96 11/21/19 05:29 Assessment: 11/21/19 10:05 no withdrawal symptom Plan: stable for discharge today ,follow up with after care as arrangement revelation
--- NOTE | 2019-11-21 10:12 | DS ---
[facility] Detox Discharge Summary Admission Date: 11/17/19 Discharge Date: 11/21/19 - History Present History: Alcohol Dependence, Cocaine Dependence Additional Comments: alert,oriented x 3 ambulation on the unit lung clear on auscultation bilaterally abdomen soft,no pain,no tenderness no withdrawal symptom stable for discharge today follow up with after care program as arrangement revelation total time spending on discharge 35 minutes Pertinent Past History: syncope nicotine dependence - Physical Exam Results Vital Signs: Vital Signs Temperature 97.8 F 11/21/19 08:30 Pulse Rate 75 11/21/19 08:30 Respiratory Rate 16 11/21/19 08:30 Blood Pressure 120/62 11/21/19 08:30 O2 Sat by Pulse Oximetry (%) 96 11/21/19 05:29 Pertinent Admission Physical Exam Findings: withdrawal signs and symptom Laboratory Last Values WBC 4.1 K/mm3 (4.0-10.0) 11/17/19 11:40 RBC 4.61 M/mm3 (4.00-5.60) 11/17/19 11:40 Hgb 13.3 GM/dL (11.7-16.9) 11/17/19 11:40 Hct 40.1 % (35.4-49) 11/17/19 11:40 MCV 86.9 fl (80-96) 11/17/19 11:40 MCH 28.8 pg (25.7-33.7) 11/17/19 11:40 MCHC 33.2 g/dl (32.0-35.9) 11/17/19 11:40 RDW 15.4 % (11.9-15.9) 11/17/19 11:40 Plt Count 258 K/MM3 (134-434) 11/17/19 11:40 MPV 8.1 fl (7.5-11.1) 11/17/19 11:40 Sodium 143 mmol/L (136-145) 11/17/19 11:40 Potassium 3.9 mmol/L (3.5-5.1) 11/17/19 11:40 Chloride 108 mmol/L (98-107) H 11/17/19 11:40 Carbon Dioxide 25 mmol/L (21-32) 11/17/19 11:40 Anion Gap No Result Required. 11/17/19 11:40 BUN 11.9 mg/dL (7-18) 11/17/19 11:40 Creatinine 1.1 mg/dL (0.55-1.3) 11/17/19 11:40 Est GFR (CKD-EPI)AfAm 79.52 11/17/19 11:40 Est GFR (CKD-EPI)NonAf 68.61 11/17/19 11:40 Random Glucose 97 mg/dL (74-106) 11/17/19 11:40 Calcium 9.3 mg/dL (8.5-10.1) 11/17/19 11:40 Total Bilirubin 1.0 mg/dL (0.2-1) 11/17/19 11:40 AST 26 U/L (15-37) 11/17/19 11:40 ALT 21 U/L (13-61) 11/17/19 11:40 Alkaline Phosphatase 81 U/L (45-117) 11/17/19 11:40 Total Protein 7.0 g/dl (6.4-8.2) 11/17/19 11:40 Albumin 3.7 g/dl (3.4-5.0) 11/17/19 11:40 Syphilis Serology Non-reactive (NONREACTIVE) 11/17/19 11:40 COVID-19 (AIRAM) Not detected (Not Detected) 11/17/19 11:40 Vital Signs Temperature 97.8 F 11/21/19 08:30 Pulse Rate 75 11/21/19 08:30 Respiratory Rate 16 11/21/19 08:30 Blood Pressure 120/62 11/21/19 08:30 O2 Sat by Pulse Oximetry (%) 96 11/21/19 05:29 - Treatment Hospital Course: Detox Protocol Followed, Detoxed Safely, Responded well, Rehab Referral Accepted (revelation) - Medication Discharge Medications: Ambulatory Orders NK [No Known Home Medication] 02/21/17 - Diagnosis (1) Alcohol dependence with uncomplicated withdrawal Current Visit: Yes Status: Acute (2) Cocaine dependence, uncomplicated Current Visit: Yes Status: Acute (3) Nicotine dependence Current Visit: Yes Status: Acute Qualifiers: Nicotine product type: cigarettes Substance use status: in withdrawal Qualified Code(s): F17.213 - Nicotine dependence, cigarettes, with withdrawal (4) Syncope Current Visit: No Status: Acute Qualifiers: Syncope type: unspecified Qualified Code(s): R55 - Syncope and collapse (5) Syncope Current Visit: Yes Status: Acute - AMA Did Patient Leave Against Medical Advice: No
[2019-11-21] MEDS: NICOTINE 21 MG/24 HOURS TOPICAL PATCH TD SCH (11:11)
[2019-11-21] MEDS: PRENATAL VITAMINS W/ FOLIC ACID TABLET (FP) PO SCH (11:11)
[2019-11-21 14:10] VITALS: BP 132/56; PULSE 79; TEMP 97.3
[2019-11-22] MEDS ORDERED: chlordiazePOXIDE HCL 10 MG CAPSULE PO ONE (05:00)
== END 2019-11-21 15:03 | disposition other institution (70) | DRG 774 ==
LOC: YASAS 09:43 → Y6N 11:02
PROVIDERS: ADMIT Allergy & Immunology; ATTEND Allergy & Immunology
PROC: HZ2ZZZZ Detoxification Services for Substance Abuse Treatment (ICD-10-PCS; principal; 2019-11-17)
DX: F10.230 Alcohol dependence with withdrawal, uncomplicated (principal); F14.20 Cocaine dependence, uncomplicated; F17.210 Nicotine dependence, cigarettes, uncomplicated; M17.0 Bilateral primary osteoarthritis of knee; R55 Syncope and collapse; R63.4 Abnormal weight loss; Z68.25 Body mass index [BMI] 25.0-25.9, adult; Z59.0 Homelessness
CPT/HCPCS: 36415; 80053; 85027; 86780; U0003

== ENCOUNTER 2019-11-21 15:05 | Inpatient (IN) | payer OTHER ==
[2019-11-21] MEDS ORDERED: NICOTINE POLACRILEX 2 MG GUM BUC PRN (15:09)
[2019-11-21] MEDS ORDERED: P-EPHED 60MG/TRIPROLIDI 2.5MG TABLET PO PRN (15:09)
[2019-11-21] MEDS ORDERED: MENTHOL/PHENOL 1 EACH UD MM PRN (15:09)
[2019-11-21] MEDS ORDERED: MAG HYDROX/AL HYDROX/SIMETH 30 ML UNIT-DOSE CUP PO PRN (15:09)
[2019-11-21] MEDS ORDERED: MAGNESIUM HYDROX 2400MG/30ML ORAL SUSPENSION 30 ML CUP PO PRN (15:09)
[2019-11-21] MEDS ORDERED: guaiFENesin 200 MG/10 ML 10 ML UNIT-DOSE CUPS PO PRN (15:09)
[2019-11-21] MEDS ORDERED: IBUPROFEN 400 MG TABLET (FP) PO PRN (15:09)
[2019-11-21] MEDS ORDERED: MAGNESIUM CITRATE 300 ML BOTTLE PO PRN (15:09)
[2019-11-21] MEDS ORDERED: ACETAMINOPHEN 325 MG TABLET (FP) PO PRN (15:09)
[2019-11-21] MEDS ORDERED: LOPERAMIDE HCL 2 MG CAPSULE PO PRN (15:09)
--- NOTE | 2019-11-21 15:09 | HP ---
[facility] Rehab Assess/Revision - Admission History Admitted to Rehab from: [facility] Date of Admission to Rehab: 11/21/2019 - Findings Detox History & Physical reviewed: Yes Concur with findings: Yes Comments/Additional Findings: for rehab as protocol Inpatient Rehab Admission - Rehab Decision to Admit Inpatient rehab admission?: Yes - Initial Determination Are CD services needed?: Yes Free of communicable disease: Yes Not in need of hospitalization: Yes - Rehab Admission Criteria Previous failed treatment: Yes Poor recovery environment: Yes Comorbidities: Yes Lacks judgement: No Patient is meeting Inpatient Rehab admission criteria:: Yes
[2019-11-21] MEDS: hydrOXYzine PAMOATE 25 MG CAPSULE (FP) PO SCH ×2 (18:20→22:00)
[2019-11-21] MEDS ORDERED: MELATONIN 5 MG TABLETS PO SCH (22:00)
[2019-11-21] MEDS ORDERED: THIAMINE HCL 100 MG TABLET (FP) PO SCH (22:00)
[2019-11-22] MEDS: hydrOXYzine PAMOATE 25 MG CAPSULE (FP) PO SCH ×3 (05:56→14:33)
[2019-11-22 07:00] VITALS: BP 114/70; PULSE 67; TEMP 97.5
[2019-11-22] MEDS ORDERED: NICOTINE 21 MG/24 HOURS TOPICAL PATCH TD SCH (10:00)
[2019-11-22] MEDS ORDERED: PRENATAL VITAMINS W/ FOLIC ACID TABLET (FP) PO SCH (10:00)
[2019-11-22] MEDS ORDERED: NICOTINE 7 MG/24 HOURS TOPICAL PATCH TD SCH (10:00)
--- NOTE | 2019-11-22 16:06 | DS ---
[facility] Rehab Discharge Summary - [facility] Rehab Discharge Summary Admission Date: 11/21/19 Discharge Date: 11/24/19 - History Present History: Alcohol dependence, Cocaine dependence Additional Comments: alert,oriented x 3 ambulation on the unit lung clear on auscultation bilaterally no abdominal pain stable for discharge total time spending 30 minutes follow up with after care program as arrangement,he stated he will go to [facility] by himself - Discharge Physical Exam Vital Signs: Vital Signs Temperature 97.5 F L 11/22/19 06:58 Pulse Rate 67 11/22/19 06:58 Respiratory Rate 18 11/22/19 06:58 Blood Pressure 114/70 11/22/19 06:58 O2 Sat by Pulse Oximetry (%) 97 11/22/19 15:55 Pertinent Admission Physical Exam Findings: Vital Signs Temperature 97.5 F L 11/22/19 06:58 Pulse Rate 67 11/22/19 06:58 Respiratory Rate 18 11/22/19 06:58 Blood Pressure 114/70 11/22/19 06:58 O2 Sat by Pulse Oximetry (%) 97 11/22/19 15:55 - Treatment Discharge Condition: Responded well Hospital Course: patient has to leave due to personal issue - Medication Discharge Medications: Ambulatory Orders NK [No Known Home Medication] 02/21/17 - Medication-Assisted Treatment (MAT) Medication-Assisted Treatment (MAT): No - Discharge Instructions Diet, activity, other medical instructions: Diet: Activity: Other medical instructions: - Diagnosis (1) Alcohol dependence Status: Acute (2) Cocaine dependence, uncomplicated Status: Acute (3) Nicotine dependence Status: Acute Qualifiers: Nicotine product type: cigarettes Substance use status: in withdrawal Qualified Code(s): F17.213 - Nicotine dependence, cigarettes, with withdrawal - AMA Did Patient Leave Against Medical Advice: No
--- NOTE | 2019-11-22 20:20 | PN ---
[facility] Progress Note Note: patient did not want to continue treatment due to personal issue to be taken care off
== END 2019-11-22 15:40 | disposition home or self-care (01) | DRG 772 ==
LOC: YASAS 15:05 → Y3W 15:06 → UNDOADMIN 15:06 → UNDODISIN 11-22 15:40
PROVIDERS: ADMIT Allergy & Immunology; ATTEND Allergy & Immunology
PROC: HZ42ZZZ Group Counseling for Substance Abuse Treatment, Cognitive-Behavioral (ICD-10-PCS; principal; 2019-11-21)
DX: F10.20 Alcohol dependence, uncomplicated (principal); F14.20 Cocaine dependence, uncomplicated; F17.210 Nicotine dependence, cigarettes, uncomplicated; Z59.0 Homelessness

== ENCOUNTER 2020-02-03 11:03 | Inpatient (IN) | payer OTHER ==
--- NOTE | 2020-02-03 11:13 | BHS.RME ---
Substance Use & Tx History - Substance Use History Alcohol Substance amount: 3 six packs beer + 1/2 pint vodka Frequency of use: Daily Substance route: Oral Date of Last Use: 02/03/20 (started age 16) Cocaine-Crack Substance amount: $100 Frequency of use: Daily Substance route: Smoking Date of Last Use: 02/02/20 (started age 36) Nicotine Substance amount: 2 packs Frequency of use: Daily Substance route: Smoking Date of Last Use: 02/03/20 (started age 14) - Last Treatment Date of last treatment: 12/28-01/02/20 Treatment type: Substance Use Disorder (SANDRO) Where was last treatment: Detox Physical/Psych/Mental Status - Behavior General Behavior: Increased activity (restlessness, agitation) Eye Contact: Normal - Cooperativeness Cooperativeness: Cooperative - Thinking Thought Processes: Tight, Logical, Goal Directed - Physical Health Problems Is patient presently having any pain?: No Does patient presently have any injuries (include location): No Does patient currently have a fever: No Is patient : No CIWA Nausea/Vomitin-No Nausea/No Vomiting Muscle Tremors: 3 Anxiety: 3 Agitation: 3 Paroxysmal Sweats: 4-Forehead w/Sweat Beads Orientation: 1-Uncertain about Date Tacttile Disturbances: 0-None Auditory Disturbances: 0-None Visual Disturbances: 0-None Headache: 2-Mild CIWA-Ar Total Score: 16
[2020-02-03 11:30] VITALS: BMI 25.0
--- NOTE | 2020-02-03 11:42 | HP ---
CIWA Score Nausea/Vomitin-No Nausea/No Vomiting Muscle Tremors: 3 Anxiety: 3 Agitation: 3 Paroxysmal Sweats: 4-Forehead w/Sweat Beads Orientation: 1-Uncertain about Date Tacttile Disturbances: 0-None Auditory Disturbances: 0-None Visual Disturbances: 0-None Headache: 2-Mild CIWA-Ar Total Score: 16 - Admission Criteria [facility]ASAS Guidelines: Admission for Medically Managed Detox: Requires at least one of the followin. CIWA greater than 12 2. Seizures within the past 24 hours 3. Delirium tremens within the past 24 hours 4. Hallucinations within the past 24 hours 5. Acute intervention needed for co occurring medical disorder 6. Acute intervention needed for co occurring psychiatric disorder 7. Severe withdrawal that cannot be handled at a lower level of care (continued vomiting, continued diarrhea, abnormal vital signs) requiring intravenous medication and/or fluids 8. Admitting History and Physical - Admission Chief Complaint: Mr. Carrington is a 69 yo man who presents to [facility] stating "I want to stop getting high, I'm tired". He is requesting admission to detox. History of Present Illness: Mr. Carrington is a 69 yo man who presents to [facility] stating "I want to stop getting high, I'm tired". He is requesting admission to detox. PMH: [place] associated with cocaine use, last was one year ago PSH/Psych/Legal: none SOC: homeless on the streets Substance Use History Alcohol Substance amount: 3 six packs beer + 1/2 pint vodka Frequency of use: Daily Substance route: Oral Date of Last Use: 02/03/20 (started age 16) No seizures Blackouts, last was 2 days ago Cocaine-Crack Substance amount: $100 Frequency of use: Daily Substance route: Smoking Date of Last Use: 02/02/20 (started age 36) Nicotine Substance amount: 2 packs Frequency of use: Daily Substance route: Smoking Date of Last Use: 02/03/20 (started age 14) - Last Treatment Date of last treatment: 12/28-01/02/20 Treatment type: Substance Use Disorder (SANDRO) Where was last treatment: Detox - Past Surgical History Past Surgical History: Yes: None - Smoking History Smoking history: Current every day smoker Have you smoked in the past 12 months: Yes Aproximately how many cigarettes per day: 40 - Alcohol/Substance Use Hx Alcohol Use: Yes - Social History ADL: Independent Occupation: unemployed and homeless History of Recent Travel: No Admission ROS S - HPI Allergies/Adverse Reactions: Allergies Allergy/AdvReac Type Severity Reaction Status Date / Time No Known Allergies Allergy Verified 02/03/20 11:31 Exam Limitations: No Limitations - Ebola screening Have you traveled outside of the country in the last 21 days: No Have you been sick,other than usual withdrawal symptoms: No Do you have a fever: No - Review of Systems Constitutional: Unintentional Wgt. Loss (lost about 20 lbs over the past 5 weeks) EENT: reports: Blurred Vision (has glasses on, for reading and distance), Other (no diplopia) Respiratory: reports: No Symptoms reported Cardiac: reports: No Symptoms Reported GI: reports: No Symptoms Reported : reports: No Symptoms Reported Musculoskeletal: reports: Joint Pain (knees, he attributes to arthritis) Integumentary: reports: No Symptoms Reported Neuro: reports: Headache Endocrine: reports: No Symptoms Reported, Unexplained Weight Loss Psychiatric: reports: No Sypmtoms Reported Patient History - Patient Medical History Hx Anemia: No Hx Asthma: No Hx Chronic Obstructive Pulmonary Disease (COPD): No Hx Cancer: No Hx Cardiac Disorders: No Hx Congestive Heart Failure: No Hx Hypertension: No Hx Hypercholesterolemia: No Hx Pacemaker: No HX Cerebrovascular Accident: No Hx Seizures: No Hx Dementia: No Hx Diabetes: No Hx Gastrointestinal Disorders: No Hx Liver Disease: No Hx Genitourinary Disorders: No Hx Sexually Transmitted Disorders: No Hx Renal Disease (ESRD): No Hx Thyroid Disease: No Hx Human Immunodeficiency Virus (HIV): No Hx Hepatitis C: No Hx Depression: No Hx Suicide Attempt: No Hx Bipolar Disorder: No Hx Schizophrenia: No - Patient Surgical History Past Surgical History: No Hx Neurologic Surgery: No Hx Cataract Extraction: No Hx Cardiac Surgery: No Hx Lung Surgery: No Hx Breast Surgery: No Hx Breast Biopsy: No Hx Abdominal Surgery: No Hx Appendectomy: No Hx Cholecystectomy: No Hx Genitourinary Surgery: No Hx Section: No Hx Orthopedic Surgery: No Anesthesia Reaction: No - PPD History Previous Implant?: Yes Documented Results: Negative w/proof Implanted On Prior [facility] Admission?: Yes Date: 10/20/19 Results: 0 mm - Smoking Cessation Smoking history: Current every day smoker Have you smoked in the past 12 months: Yes Aproximately how many cigarettes per day: 40 Cigars Per Day: 0 Hx Chewing Tobacco Use: No Initiated information on smoking cessation: Yes 'Breaking Loose' booklet given: 02/03/20 Admission Physical Exam [facility] - Vital Signs Vital Signs: Vital Signs - 24 hr 02/03/20 11:29 Temperature 97.3 F L Pulse Rate 87 Respiratory 20 Rate Blood Pressure 110/70 - Physical General Appearance: Yes: No Apparent Distress, Nourished, Appropriately Dressed HEENTM: Yes: EOMI, Hearing grossly Normal, Normocephalic, Normal Voice, Other (forehead muscles twitching,he attributes to cocaine, ? bilateral ptosis) Respiratory: Yes: Lungs Clear, No Respiratory Distress, No Accessory Muscle Use Neck: Yes: Within Normal Limits, Supple Breast: Yes: Breast Exam Deferred Cardiology: Yes: Regular Rhythm, Regular Rate Abdominal: Yes: Normal Bowel Sounds, Non Tender, Flat, Soft Genitourinary: Yes: Other (deferred) Back: Yes: Normal Inspection Musculoskeletal: Yes: Gait Steady Extremities: Yes: Normal Inspection, Non-Tender 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: Yes: Alert, Normal Response Integumentary: Yes: Normal Color, Dry, Warm - Diagnostic (1) Alcohol dependence with uncomplicated withdrawal Current Visit: Yes Status: Acute (2) Cocaine dependence Current Visit: Yes Status: Acute Qualifiers: (3) Nicotine dependence Current Visit: Yes Status: Chronic Qualifiers: Nicotine product type: cigarettes Substance use status: uncomplicated Qualified Code(s): F17.210 - Nicotine dependence, cigarettes, uncomplicated Cleared for Admission [facility] - Detox or Rehab [facility] Level of Care: Medically Managed Detox Regimen/Protocol: Librium Breathalyzer - Breathalyzer Breathalyzer: 0.030 Urine Drug Screen - Test Device Lot number: [id number] Expiration date: 08/12/21 - Control Is test valid?: Yes - Results Drug screen NEGATIVE: No Urine drug screen results: MADHURI-Cocaine Inpatient Rehab Admission - Rehab Decision to Admit Inpatient rehab admission?: No
[2020-02-03] MEDS ORDERED: BISMUTH SUBSALICYLATE 262 MG/15 ML BTL PO PRN (11:46)
[2020-02-03] MEDS ORDERED: MAGNESIUM CITRATE 300 ML BOTTLE PO PRN (11:46)
[2020-02-03] MEDS ORDERED: NICOTINE POLACRILEX 2 MG GUM BUC PRN (11:46)
[2020-02-03] MEDS ORDERED: ACETAMINOPHEN 325 MG TABLET (FP) PO PRN ×2 (11:46)
[2020-02-03] MEDS ORDERED: MAG HYDROX/AL HYDROX/SIMETH 30 ML UNIT-DOSE CUP PO PRN (11:46)
[2020-02-03] MEDS ORDERED: MAGNESIUM HYDROX 2400MG/30ML ORAL SUSPENSION 30 ML CUP PO PRN (11:46)
[2020-02-03] MEDS ORDERED: METHOCARBAMOL 500 MG TABLET PO PRN (11:46)
[2020-02-03] MEDS ORDERED: chlordiazePOXIDE HCL 25 MG CAPSULE PO PRN (11:46)
[2020-02-03] MEDS ORDERED: MENTHOL/PHENOL 1 EACH UD MM PRN (11:46)
[2020-02-03] MEDS ORDERED: ONDANSETRON *ODT* 4 MG TABLET SL PRN (11:46)
[2020-02-03 12:53] LABS: HEMOGLOBIN 14.2 GM/dL (11.7-16.9); MCH 28.5 pg (25.7-33.7); MCHC 33.8 g/dl (32.0-35.9); MEAN CELL VOLUME 84.3 fl (80-96); MEAN PLT VOLUME 7.9 fl (7.5-11.1); PLATELET COUNT 244 K/MM3 (134-434); RBC 4.98 M/mm3 (4.00-5.60); RDW 14.1 % (11.9-15.9)
[2020-02-03] MEDS: NICOTINE 21 MG/24 HOURS TOPICAL PATCH TD SCH (13:01)
[2020-02-03 13:10] LABS: BILIRUBIN,TOTAL 0.7 mg/dL (0.2-1); BLOOD UREA NITROGEN 13.7 mg/dL (7-18); CALCIUM 8.9 mg/dL (8.5-10.1); CREATININE 1.3 mg/dL (0.55-1.3); POTASSIUM 3.8 mmol/L (3.5-5.1); TOT PROT 7.5 g/dl (6.4-8.2)
[2020-02-03] MEDS ORDERED: hydrOXYzine PAMOATE 25 MG CAPSULE (FP) PO SCH (14:00)
[2020-02-03] MEDS ORDERED: hydrOXYzine PAMOATE 25 MG CAPSULE (FP) PO PRN (14:48)
[2020-02-03] MEDS: chlordiazePOXIDE HCL 25 MG CAPSULE PO SCH ×2 (18:25→22:42)
[2020-02-03] MEDS: MELATONIN 5 MG TABLETS PO SCH (22:42)
[2020-02-03] MEDS: THIAMINE HCL 100 MG TABLET (FP) PO SCH (22:42)
[2020-02-04] MEDS: chlordiazePOXIDE HCL 25 MG CAPSULE PO SCH ×4 (05:08→22:56)
[2020-02-04] MEDS: PRENATAL VITAMINS W/ FOLIC ACID TABLET (FP) PO SCH (10:42)
[2020-02-04] MEDS: NICOTINE 21 MG/24 HOURS TOPICAL PATCH TD SCH (10:43)
--- NOTE | 2020-02-04 12:00 | PN ---
S CIWA - CIWA Score Nausea/Vomitin-No Nausea/No Vomiting Muscle Tremors: 3 Anxiety: 2 Agitation: 2 Paroxysmal Sweats: 1-Minimal Palms Moist Orientation: 0-Oriented Tacttile Disturbances: 0-None Auditory Disturbances: 0-None Visual Disturbances: 0-None Headache: 0-None Present CIWA-Ar Total Score: 8 BHS Progress Note (SOAP) Subjective: agitation sweats body aches Objective: 02/04/20 12:00 Vital Signs Temperature 97.8 F 02/04/20 05:03 Pulse Rate 62 02/04/20 05:03 Respiratory Rate 16 02/04/20 05:03 Blood Pressure 115/66 02/04/20 05:03 O2 Sat by Pulse Oximetry (%) 95 02/04/20 05:03 Laboratory Tests 02/03/20 02/03/20 02/03/20 11:50 11:50 11:50 WBC 4.0 RBC 4.98 Hgb 14.2 Hct 42.0 MCV 84.3 MCH 28.5 MCHC 33.8 RDW 14.1 Plt Count 244 MPV 7.9 Sodium 140 Potassium 3.8 Chloride 107 Carbon Dioxide 28 Anion Gap 5 L BUN 13.7 Creatinine 1.3 Est GFR (CKD-EPI)AfAm 64.98 Est GFR (CKD-EPI)NonAf 56.06 Random Glucose 130 H Calcium 8.9 Total Bilirubin 0.7 AST 28 ALT 24 Alkaline Phosphatase 105 Total Protein 7.5 Albumin 4.0 Syphilis Serology Non-reactive COVID-19 (AIRAM) 02/03/20 13:10 WBC RBC Hgb Hct MCV MCH MCHC RDW Plt Count MPV Sodium Potassium Chloride Carbon Dioxide Anion Gap BUN Creatinine Est GFR (CKD-EPI)AfAm Est GFR (CKD-EPI)NonAf Random Glucose Calcium Total Bilirubin AST ALT Alkaline Phosphatase Total Protein Albumin Syphilis Serology COVID-19 (AIRAM) Not detected labs noted aaox3 ambulating no acute distress Assessment: 02/04/20 12:00 withdrawal Plan: continue detox
[2020-02-04] MEDS: THIAMINE HCL 100 MG TABLET (FP) PO SCH (22:56)
[2020-02-04] MEDS: MELATONIN 5 MG TABLETS PO SCH (22:56)
[2020-02-05] MEDS: chlordiazePOXIDE HCL 25 MG CAPSULE PO SCH ×4 (07:17→23:05)
--- NOTE | 2020-02-05 10:41 | PN ---
[facility] CIWA - CIWA Score Nausea/Vomitin-No Nausea/No Vomiting Muscle Tremors: 2 Anxiety: 1-Mildly Anxious Agitation: 1-Slight > Activity Paroxysmal Sweats: 1-Minimal Palms Moist Orientation: 0-Oriented Tacttile Disturbances: 0-None Auditory Disturbances: 0-None Visual Disturbances: 0-None Headache: 0-None Present CIWA-Ar Total Score: 5 BHS Progress Note (SOAP) Subjective: feeling good sweats Objective: 02/05/20 10:40 Vital Signs Temperature 96.6 F L 02/05/20 08:56 Pulse Rate 73 02/05/20 08:56 Respiratory Rate 16 02/05/20 08:56 Blood Pressure 107/60 02/05/20 08:56 O2 Sat by Pulse Oximetry (%) 97 02/05/20 05:13 Laboratory Tests 02/03/20 02/03/20 02/03/20 11:50 11:50 11:50 WBC 4.0 RBC 4.98 Hgb 14.2 Hct 42.0 MCV 84.3 MCH 28.5 MCHC 33.8 RDW 14.1 Plt Count 244 MPV 7.9 Sodium 140 Potassium 3.8 Chloride 107 Carbon Dioxide 28 Anion Gap 5 L BUN 13.7 Creatinine 1.3 Est GFR (CKD-EPI)AfAm 64.98 Est GFR (CKD-EPI)NonAf 56.06 Random Glucose 130 H Calcium 8.9 Total Bilirubin 0.7 AST 28 ALT 24 Alkaline Phosphatase 105 Total Protein 7.5 Albumin 4.0 Syphilis Serology Non-reactive COVID-19 (AIRAM) 02/03/20 13:10 WBC RBC Hgb Hct MCV MCH MCHC RDW Plt Count MPV Sodium Potassium Chloride Carbon Dioxide Anion Gap BUN Creatinine Est GFR (CKD-EPI)AfAm Est GFR (CKD-EPI)NonAf Random Glucose Calcium Total Bilirubin AST ALT Alkaline Phosphatase Total Protein Albumin Syphilis Serology COVID-19 (AIRAM) Not detected labs noted aaox3 ambulating no acute distress Assessment: 02/05/20 10:41 withdrawals Plan: continue detox
[2020-02-05] MEDS: NICOTINE 21 MG/24 HOURS TOPICAL PATCH TD SCH (11:40)
[2020-02-05] MEDS: PRENATAL VITAMINS W/ FOLIC ACID TABLET (FP) PO SCH (11:40)
[2020-02-05] MEDS: IBUPROFEN 400 MG TABLET (FP) PO PRN (17:17)
[2020-02-05] MEDS: THIAMINE HCL 100 MG TABLET (FP) PO SCH (23:05)
[2020-02-05] MEDS: MELATONIN 5 MG TABLETS PO SCH (23:05)
[2020-02-06] MEDS ORDERED: chlordiazePOXIDE HCL 10 MG CAPSULE PO PRN
[2020-02-06] MEDS: chlordiazePOXIDE HCL 10 MG CAPSULE PO SCH ×2 (05:35→10:14)
--- NOTE | 2020-02-06 09:11 | DS ---
[facility] Detox Discharge Summary Admission Date: 02/03/20 Discharge Date: 02/06/20 - History Present History: Alcohol Dependence, Cocaine Dependence - Physical Exam Results Vital Signs: Vital Signs Temperature 97.3 F L 02/06/20 05:06 Pulse Rate 64 02/06/20 05:06 Respiratory Rate 16 02/06/20 05:06 Blood Pressure 110/63 02/06/20 05:06 O2 Sat by Pulse Oximetry (%) 95 02/06/20 05:06 Pertinent Admission Physical Exam Findings: Vital Signs Temperature 97.3 F L 02/06/20 05:06 Pulse Rate 64 02/06/20 05:06 Respiratory Rate 16 02/06/20 05:06 Blood Pressure 110/63 02/06/20 05:06 O2 Sat by Pulse Oximetry (%) 95 02/06/20 05:06 Laboratory Tests 02/03/20 02/03/20 02/03/20 11:50 11:50 11:50 WBC 4.0 RBC 4.98 Hgb 14.2 Hct 42.0 MCV 84.3 MCH 28.5 MCHC 33.8 RDW 14.1 Plt Count 244 MPV 7.9 Sodium 140 Potassium 3.8 Chloride 107 Carbon Dioxide 28 Anion Gap 5 L BUN 13.7 Creatinine 1.3 Est GFR (CKD-EPI)AfAm 64.98 Est GFR (CKD-EPI)NonAf 56.06 Random Glucose 130 H Calcium 8.9 Total Bilirubin 0.7 AST 28 ALT 24 Alkaline Phosphatase 105 Total Protein 7.5 Albumin 4.0 Syphilis Serology Non-reactive COVID-19 ([facility]) 02/03/20 13:10 WBC RBC Hgb Hct MCV MCH MCHC RDW Plt Count MPV Sodium Potassium Chloride Carbon Dioxide Anion Gap BUN Creatinine Est GFR (CKD-EPI)AfAm Est GFR (CKD-EPI)NonAf Random Glucose Calcium Total Bilirubin AST ALT Alkaline Phosphatase Total Protein Albumin Syphilis Serology COVID-19 ([facility]) Not detected labs noted aaox3 ambulating no acute distress lungs CTA - Treatment Hospital Course: Detox Protocol Followed, Detoxed Safely, Responded well, Discharged Condition Good, Rehab Referral Accepted - Medication Discharge Medications: Ambulatory Orders NK [No Known Home Medication] 02/21/17 - Diagnosis (1) Alcohol dependence with uncomplicated withdrawal Current Visit: Yes Status: Chronic (2) Cocaine dependence Current Visit: Yes Status: Chronic Qualifiers: Substance use status: uncomplicated (3) Nicotine dependence Current Visit: Yes Status: Chronic Qualifiers: Nicotine product type: cigarettes Substance use status: uncomplicated Qualified Code(s): F17.210 - Nicotine dependence, cigarettes, uncomplicated (4) At risk for dehydration due to poor fluid intake Current Visit: No Status: Acute (5) Risk for falls Current Visit: No Status: Acute (6) Syncope Current Visit: No Status: Acute Qualifiers: Syncope type: unspecified Qualified Code(s): R55 - Syncope and collapse (7) Syncope Current Visit: No Status: Acute (8) Weight loss Current Visit: No Status: Acute (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
[2020-02-06 09:23] VITALS: BP 114/69; PULSE 84; TEMP 97.1
[2020-02-06] MEDS: PRENATAL VITAMINS W/ FOLIC ACID TABLET (FP) PO SCH (10:14)
[2020-02-06] MEDS: IBUPROFEN 400 MG TABLET (FP) PO PRN (10:14)
[2020-02-06] MEDS: NICOTINE 21 MG/24 HOURS TOPICAL PATCH TD SCH (10:14)
[2020-02-07] MEDS ORDERED: chlordiazePOXIDE HCL 10 MG CAPSULE PO SCH (05:00)
[2020-02-08] MEDS ORDERED: chlordiazePOXIDE HCL 10 MG CAPSULE PO ONE (05:00)
== END 2020-02-06 11:28 | disposition home or self-care (01) | DRG 774 ==
LOC: YASAS 11:03 → Y6N 12:00
PROVIDERS: ADMIT Allergy & Immunology; ATTEND Allergy & Immunology
PROC: HZ2ZZZZ Detoxification Services for Substance Abuse Treatment (ICD-10-PCS; principal; 2020-02-03)
DX: F10.230 Alcohol dependence with withdrawal, uncomplicated (principal); F14.20 Cocaine dependence, uncomplicated; F17.210 Nicotine dependence, cigarettes, uncomplicated; F19.24 Other psychoactive substance dependence with psychoactive substance-induced mood disorder; H18.413 Arcus senilis, bilateral; R55 Syncope and collapse; I25.2 Old myocardial infarction; R63.8 Other symptoms and signs concerning food and fluid intake; R63.4 Abnormal weight loss; Z68.25 Body mass index [BMI] 25.0-25.9, adult; Z91.81 History of falling
CPT/HCPCS: 36415; 80053; 85027; 86780; U0003

== ENCOUNTER 2020-02-16 20:37 | Inpatient (IN) | payer OTHER ==
--- OUTSIDE RECORDS SUMMARY | 2020-02-16 20:45 | XMS ---
:1950 Author Organization [facility] Care Team Providers Name Role Phone CHELE JOEL Unavailable Unavailable ED STAFF PHYSICIAN, STAFF Unavailable Unavailable ED STAFF PHYSICIAN Unavailable Unavailable ED STAFF PHYSICIAN Unavailable Unavailable JESUS Urban Unavailable Unavailable ED STAFF PHYSICIAN Unavailable Unavailable Re-disclosure Warning The records that you are about to access may contain information from federally- assisted alcohol or drug abuse programs. If such information is present, then the following federally mandated warning applies: This information has been disclosed to you from records protected by federal confidentiality rules (42 CFR part 2). The federal rules prohibit you from making any further disclosure of this information unless further disclosure is expressly permitted by the written consent of the person to whom it pertains or as otherwise permitted by 42 CFR part 2. A general authorization for the release of medical or other information is NOT sufficient for this purpose. The Federal rules restrict any use of the information to criminally investigate or prosecute any alcohol or drug abuse patient.The records that you are about to access may contain highly sensitive health information, the redisclosure of which is protected by Article 27-F of the [place] State Public Health law. If you continue you may haveaccess to information: Regarding HIV / AIDS; Provided by facilities licensed or operated by the [facility] Office of Mental Health; or Provided by the [facility] Office for People With Developmental Disabilities. If such information is present, then the following [facility] mandated warning applies: This information has been disclosed to you from confidential records which are protected by state law. State law prohibits you from making any further disclosure of this information without the specific written consent of the person to whom it pertains, or as otherwise permitted by law. Any unauthorized further disclosure in violation of state law may result in a fine or penitentiary sentence or both. A general authorization for the release of medical or other information is NOT sufficient authorization for further disclosure. Encounters Encounter Providers Location Date Indications Data Source(s ) Outpatient STV 02/06/2020 12:21:00 [facility] PM EDT - 02/06/2020 03:37:00 PM EDT Patient discharged. Emergency Attender: ED STAFF H 08/20/2019 07:13:00 PM [facility] PHYSICIANAttender: ED STAFF EDT - 08/20/2019 [facility] PHYSICIANAttender: STAFF ED 09:29:00 PM EDT STAFF PHYSICIANAdmitter: ED STAFF PHYSICIAN Patient discharged. Emergency Attender: JESUS Miranda 08/20/2019 05:07:00 AM [facility] Stephanie: STAFF ED STAFF EDT - 08/20/2019 [facility] PHYSICIANAdmitter: JESUS 10:05:00 AM EDT ALFONSO Urban Patient discharged. Emergency Attender: JESUS Miranda 08/17/2019 11:51:00 PM [facility] Stephanie: STAFF ED STAFF EDT - 08/18/2019 [facility] PHYSICIANAdmitter: JESUS 04:26:00 AM EDT ALFONSO Garcia: STAFF ED STAFF PHYSICIAN Patient discharged. Emergency Attender: ED STAFF H 05/19/2019 01:33:00 AM [facility] PHYSICIANAttender: STAFF ED EST - 05/19/2019 [facility] STAFF PHYSICIANAdmitter: ED 05:14:00 AM EST STAFF PHYSICIAN Patient discharged. Emergency Attender: STAFF ED STAFF H 04/03/2019 01:11:00 AM [facility] PHYSICIAN EST - 04/03/2019 05:15:00 Center AM EST Patient discharged. Inpatient Attender: CHELE JACKSON H-HAL5 01/31/2019 09:00:00 A M [facility] MAHERAdmitter: CHELE EDT - 02/03/2019 [facility] RENETTA BARAHONAeferrer: 08:50:00 AM EDT CHELE ELAINE Patient discharged. Insurance Providers Payer name Policy type Policy ID Covered Covered democrat's Policy P yanick / Coverage democrat ID relationship to Jama Inf ormation type jama [employer] MEDICAID [id number] SP [id number] COMM PL[employer] [facility] MED[facility]ID [id number] SP [id number] COMM PLAN MEDICAID [id number] SP [id number] SELF PAY SP INSURANCE PEND. ([facility]) HMO MEDICAID W [id number] 01 [id number] [facility] OP O HMO MEDICAID W [id number] 01 [id number] 31 [facility] OP W [id number] HMO MEDICAID W [id number] [facility] IP DRG [employer] MEDICAID [id number] SP [id number] COMM PLAN W [id number] Problems, Conditions, and Diagnoses Code Display Name Description Problem Type Effective Data Dates Source(s) F17.210 Nicotine dependence, NICOTINE Diagnosis 08/20/2019 [facility] cigarettes, DEPENDENCE, 07:13:00 PM Medical uncomplicated CIGARETTES, EDT Center UNCOMPLICATED I10 Essential (primary) ESSENTIAL Diagnosis 08/20/2019 [facility] hypertension (PRIMARY) 07:13:00 PM Medical HYPERTENSION EDT Center R50.9 Fever, unspecified FEVER, UNSPECIFIED Diagnosis 0 [place] 07:13:00 PM Medical EDT Center J06.9 Acute upper ACUTE UPPER Diagnosis 08/20/2019 [facility] respiratory RESPIRATORY 07:13:00 PM Medical infection, INFECTION, EDT Center unspecified UNSPECIFIED R05 Cough COUGH Diagnosis 08/20/2019 [place] 07:13:00 PM Medical EDT Center Z20.828 Contact with and CONTACT W AND Diagnosis 08/20/2019 [facility] (suspected) exposure EXPOSURE TO OTH 05:07:00 A M Medical to other viral VIRAL COMMUNICABLE EDT Ce nter communicable DISEASES diseases B34.9 Viral infection, VIRAL INFECTION, Diagnosis 08/20/2019 [facility] unspecified UNSPECIFIED 05:07:00 AM Medical EDT Center R52 Pain, unspecified PAIN, UNSPECIFIED Diagnosis 08/20/2019 [facility] 05:07:00 AM Medical EDT Center Z72.0 Tobacco use TOBACCO USE Diagnosis 05/19/2019 [facility] 01:33:00 AM Medical EST Center R07.89 Other chest pain OTHER CHEST PAIN Diagnosis 05/19/2019 [facility] 01:33:00 AM Medical EST Center R07.9 Chest pain, CHEST PAIN, Diagnosis 05/19/2019 [facility] unspecified UNSPECIFIED 01:33:00 AM Medical EST Center F10.10 Alcohol abuse, ALCOHOL ABUSE, Diagnosis 04/03/2019 [facility] uncomplicated UNCOMPLICATED 01:11:00 AM Medical EST Center Z87.898 Personal history of PERSONAL HISTORY Diagnosis 04/03/2019 [facility] other specified OF OTHER SPECIFIED 01:11:00 AM Medical conditions CONDITIONS EST Center Z00.00 Encounter for ENCNTR FOR GENERAL Diagnosis 04/03/2019 [facility] general adult ADULT MEDICAL EXAM 01:11:00 AM Me dical medical examination W/O ABNORMAL EST [address] without abnormal FINDINGS findings I25.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 02/03/2019 [facility] heart disease of DISEASE OF [place] 08:50:00 AM Medical [place] coronary CORONARY ARTERY EDT Cent er artery without W/O ANG PCTRS angina pectoris I11.0 Hypertensive heart HYPERTENSIVE HEART Diagnosis 9 [facility] disease with heart DISEASE WITH HEART 08:50:00 AM Medical failure FAILURE EDT Center Y90.0 Blood alcohol level BLOOD ALCOHOL Diagnosis 02/03/2019 [facility] of less than 20 LEVEL OF LESS THAN 08:50:00 AM Medical mg/100 ml 20 MG/100 ML EDT Center I50.22 Chronic systolic CHRONIC SYSTOLIC Diagnosis 02/03/2019 [facility] (congestive) heart (CONGESTIVE) HEART 08:50:00 AM Medical failure FAILURE EDT Center 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 ID Date Data Source [id number] 12/29/2019 12:40:00 PM EDT [facility] Name Value Range Interpretation Description Data Sup porting Code Source(s) Document(s ) SARS [facility] coronavirus 2 RNA This lab was ordered by [facility] and reported by [facility]. ID Date Data Source [id number] 11/17/2019 11:40:00 AM EDT [facility] Name Value Range Interpretation Description Data Sup porting Code Source(s) Document(s ) SARS [facility] coronavirus 2 RNA This lab was ordered by [facility] and reported by [facility]. ID Date Data Source Urinalysis.[id number] 08/20/2019 08:32:00 AM EDT [facility] 0 Name Value Range Interpretation Description Data Sup porting Code Source(s) Document(s ) UNK CLEAR <content Saint styleCode="Rodney Anthony d">Urine Medical Clarity Center </content>PAM R <content styleCode="Eliza lics"> (CLEAR )</content> Color of Urine YELLOW <content Saint styleCode="Rodney Anthony d">Color, Medical Urine Center </content>YELL OW <content styleCode="Eliza lics"> (YELLOW )</content> Specific 1.015-1.02 Below low normal <content [facility] gravity of 5 styleCode="Rodney Anthony Urine by Test d">Urine Medical strip Specific Center [place] </content><= 1.005 L<content styleCode="Eliza lics"> (1.015-1.025 )</content> Ketones NEGATIVE <content Saint [Mass/volume] styleCode="Rodney Anthony in Urine by d">Urine Medical Test strip Ketone Center </content>NEGA TIVE MG/DL<content styleCode="Eliza lics"> (NEGATIVE MG/DL)</conten t> UNK NEGATIVE <content Saint styleCode="Rodney Anthony d">Urine Medical Bilirubin Center </content>NEGA TIVE <content styleCode="Eliza lics"> (NEGATIVE )</content> Hemoglobin NEGATIVE <content Saint [Presence] in styleCode="Rodney Anthony Urine by Test d">Urine Blood Medical strip </content>TRAC Center E <content styleCode="Eliza lics"> (NEGATIVE )</content> Glucose NEGATIVE <content Saint [Mass/volume] styleCode="Rodney Anthony in Urine by d">Urine Medical Test strip Glucose Center </content>NEGA TIVE MG/DL<content styleCode="Eliza lics"> (NEGATIVE MG/DL)</conten t> Nitrite NEGATIVE <content Saint [Presence] in styleCode="Rodney Newtons Urine by Test d">Urine Medical strip Nitrite Center </content>POSI TIVE <content styleCode="Eliza lics"> (NEGATIVE )</content> Urobilinogen 0.2-1.0 <content Saint [Units/volume] styleCode="Rodney Newtons in Urine by d">Urine Medical Test strip Urobilinogen Center </content>0.2 MG/DL<content styleCode="Eliza lics"> (0.2-1.0 MG/DL)</conten t> Protein NEGATIVE <content Saint [Mass/volume] styleCode="Rodney Newtons in Urine by d">Urine Medical Test strip Protein Center </content>NEGA TIVE MG/DL<content styleCode="Eliza lics"> (NEGATIVE MG/DL)</conten t> pH of Urine by 4.5-8.0 <content Saint Test strip styleCode="Rodney Anthony d">Urine pH Medical </content>6.0 Center <content styleCode="Eliza lics"> (4.5-8.0 )</content> UNK 0-3 <content Saint styleCode="Rodney Anthony d">Urine Red Medical Blood Cell Center </content>5 - 10 HPF<content styleCode="Eliza lics"> (0-3 HPF)</content> UNK 0-3 <content Saint styleCode="Rodney Anthony d">Urine White Medical Blood Cell Center </content>3-5 HPF<content styleCode="Eliza lics"> (0-3 HPF)</content> UNK NEGATIVE <content Saint styleCode="Rodney Anthony d">Urine Medical Bacteria Center </content>FEW HPF<content styleCode="Eliza lics"> (NEGATIVE HPF)</content> Leukocyte NEGATIVE <content Saint esterase styleCode="Rodney Cruz [Presence] in d">Urine Medical Urine by Test Leukocyte Center strip </content>NEGA TIVE <content styleCode="Eliza lics"> (NEGATIVE )</content> ID Date Data Source Microbiology.[id number] 08/20/2019 08:32:00 AM EDT [facility] Name Value Range Interpretation Code Description Data Ofelia rce(s) Supporting Document(s ) UNK <item><content [facility] styleCode="Bold"> Medical [facility] er Culture Status </content>
<t able><tbody><tr>< td>Specimen Number:</td><td>[id number]</td></tr ><tr><td>Sample Collection Date/Time: </td><td> 0 8:32 AM</td></tr><tr>< td>Specimen Source:</td><td>U RINE</td></tr><tr ><td>Culture Status:</td><td>P reliminary </td></tr><tr><td >Culture Report:</td><td>C ulture in progress </td></tr><tr><td >Urine Culture:</td><td> Collection Plate Date: 08/20/2019 08:38 </td></tr></tbody ></table></item> UNK <item><content [facility] styleCode="Bold"> Medical [facility] er Culture Report </content>
<t able><tbody><tr>< td>Specimen Number:</td><td>[id number]</td></tr ><tr><td>Sample Collection Date/Time: </td><td> 0 8:32 AM</td></tr><tr>< td>Specimen Source:</td><td>U RINE</td></tr><tr ><td>Urine Culture:</td><td> Collection Plate Date: 08/20/2019 08:38 </td></tr><tr><td >Culture Status:</td><td>P reliminary </td></tr><tr><td >Culture Report:</td><td>C ulture in progress </td></tr></tbody ></table></item> ID Date Data Source Liver 08/20/2019 06:17:00 AM EDT [facility] Profile.[id number] Name Value Range Interpretation Description Data Sup porting Code Source(s) Document(s ) Aspartate 17-59 Above high <content [facility] aminotransferase normal styleCode="Bold"> [facility] [Enzymatic Aspartate Medical activity/volume] Aminotransferase Center in Serum or Plasma (AST) </content>73 IU/L H<content styleCode="Italic s"> (17-59 IU/L)</content> Albumin 3.5-5.0 <content [facility] [Mass/volume] in styleCode="Bold"> [facility] hs Serum or Plasma Albumin Medical </content>3.8 Center G/DL<content styleCode="Italic s"> (3.5-5.0 G/DL)</content> UNK 0.0-0.3 <content Saint styleCode="Bold"> [facility] Bilirubin, Direct Medical </content>< 0.2 Center MG/DL<content styleCode="Italic s"> (0.0-0.3 MG/DL)</content> Alkaline 38-126 <content Saint phosphatase styleCode="Bold"> [facility] [Enzymatic Alkaline Medical activity/volume] Phosphatase (ALP) Cente r in Serum or Plasma </content>79 IU/L<content styleCode="Italic s"> (38-126 IU/L)</content> Alanine 7-50 <content [facility] aminotransferase styleCode="Bold"> [facility] [Enzymatic Alanine Medical activity/volume] Aminotransferase Center in Serum or Plasma (ALT) </content>32 IU/L<content styleCode="Italic s"> (7-50 IU/L)</content> Bilirubin.total 0.2-1.3 <content [facility] [Mass/volume] in styleCode="Bold"> [facility] hs Serum or Plasma Bilirubin Total Medical </content>1.0 Center MG/DL<content styleCode="Italic s"> (0.2-1.3 MG/DL)</content> ID Date Data Source CHMROUTINECCDA.[id number] 08/20/2019 06:17:00 AM EDT [facility] -0400 Name Value Range Interpretation Description Data Sup porting Code Source(s) Document(s ) Lipase 23-300 <content [facility] [Enzymatic styleCode="Bold Medical activity/vo ">Lipase Center lume] in </content>161 Serum or IU/L<content Plasma styleCode="Ital ics"> (23-300 IU/L)</content> ID Date Data Source [facility].[id number] 08/20/2019 06:17:00 AM EDT [facility] Name Value Range Interpretation Description Data Sup porting Code Source(s) Document(s ) Aspartate 17-59 Above high <content [facility] aminotransferase normal styleCode="Bold"> [facility] [Enzymatic Aspartate Medical activity/volume] Aminotransferase Center in Serum or Plasma (AST) </content>73 IU/L H<content styleCode="Italic s"> (17-59 IU/L)</content> Albumin 3.5-5.0 <content Saint [Mass/volume] in styleCode="Bold"> [facility] Serum or Plasma Albumin Medical </content>3.8 Center G/DL<content styleCode="Italic s"> (3.5-5.0 G/DL)</content> Bilirubin.total 0.2-1.3 <content [facility] [Mass/volume] in styleCode="Bold"> [facility] Serum or Plasma Bilirubin Total Medical </content>1.0 Center MG/DL<content styleCode="Italic s"> (0.2-1.3 MG/DL)</content> Alanine 7-50 <content [facility] aminotransferase styleCode="Bold"> [facility] [Enzymatic Alanine Medical activity/volume] Aminotransferase Center in Serum or Plasma (ALT) </content>32 IU/L<content styleCode="Italic s"> (7-50 IU/L)</content> Alkaline 38-126 <content [facility] phosphatase styleCode="Bold"> [facility] [Enzymatic Alkaline Medical activity/volume] Phosphatase (ALP) [place] r in Serum or Plasma </content>79 IU/L<content styleCode="Italic s"> (38-126 IU/L)</content> ID Date Data Source [id number] 08/20/2019 06:15:00 AM EDT [facility] Name Value Range Interpretation Code Description Data Ofelia rce(s) Supporting Document(s ) COV2 [facility] This lab was ordered by [facility] and reported by [facility]. ID Date Data Source Microbiology.[id number] 08/20/2019 06:10:00 AM EDT [facility] 400 Name Value Range Interpretation Code Description Data Ofelia rce(s) Supporting Document(s ) UNK <item><content [facility] styleCode="Bold"> Medical Cent er Culture Status </content>
<t able><tbody><tr>< td>Specimen Number:</td><td>[id number]</td></tr ><tr><td>Sample Collection Date/Time: </td><td> 0 6:10 AM</td></tr><tr>< td>Specimen Source:</td><td>B LOOD</td></tr><tr ><td>Blood Culture:</td><td> Collection Plate Date: 08/20/2019 06:16 </td></tr><tr><td >Culture Report:</td><td>C ulture in progress </td></tr><tr><td >Culture Status:</td><td>P reliminary </td></tr></tbody ></table></item> UNK <item><content [facility] styleCode="Bold"> Medical Cent er Culture Report </content>
<t able><tbody><tr>< td>Specimen Number:</td><td>[id number]</td></tr ><tr><td>Sample Collection Date/Time: </td><td> 0 6:10 AM</td></tr><tr>< td>Specimen Source:</td><td>B LOOD</td></tr><tr ><td>Blood Culture:</td><td> Collection Plate Date: 08/20/2019 06:16 </td></tr><tr><td >Culture Status:</td><td>P reliminary </td></tr><tr><td >Culture Report:</td><td>C ulture in progress </td></tr></tbody ></table></item> ID Date Data Source MROUTINECC.[id number] 08/20/2019 06:08:00 AM EDT [facility] -0400 Name Value Range Interpretation Description Data Sup porting Code Source(s) Document(s ) Lactate 0.7-2.0 <content [facility] [Mass/volum styleCode="Bold Medical e] in Serum ">Lactic Acid Center or Plasma </content>1.0 MMOLL<content styleCode="Ital ics"> (0.7-2.0 MMOLL)</content > ID Date Data Source Microbiology.[id number] 08/20/2019 05:50:00 AM EDT [facility] 400 Name Value Range Interpretation Code Description Data Ofelia rce(s) Supporting Document(s ) UNK <item><content [facility] styleCode="Bold"> Medical Cent er Culture Status </content>
<t able><tbody><tr>< td>Specimen Number:</td><td>[id number]</td></tr ><tr><td>Sample Collection Date/Time: </td><td> 0 5:50 AM</td></tr><tr>< td>Specimen Source:</td><td>B LOOD</td></tr><tr ><td>Culture Report:</td><td>C ulture in progress </td></tr><tr><td >Culture Status:</td><td>P reliminary </td></tr><tr><td >Blood Culture:</td><td> Collection Plate Date: 08/20/2019 06:17 </td></tr></tbody ></table></item> UNK <item><content [facility] styleCode="Bold"> Medical [facility] Culture Report </content>
<t able><tbody><tr>< td>Specimen Number:</td><td>[id number]</td></tr ><tr><td>Sample Collection Date/Time: </td><td> 0 5:50 AM</td></tr><tr>< td>Specimen Source:</td><td>B LOOD</td></tr><tr ><td>Blood Culture:</td><td> Collection Plate Date: 08/20/2019 06:17 </td></tr><tr><td >Culture Status:</td><td>P reliminary </td></tr><tr><td >Culture Report:</td><td>C ulture in progress </td></tr></tbody ></table></item> ID Date Data Source HematologyRou.[id number] 08/20/2019 05:50:00 AM EDT [facility] 0400 Name Value Range Interpretation Description Data Sup porting Code Source(s) Document(s ) Erythrocytes 4.4-5.9 <content [facility] [#/volume] in styleCode="Bold [facility] Blood by ">Red Blood Medical Automated count Cell Count Center </content>4.72 MCUMM<content styleCode="Ital ics"> (4.4-5.9 MCUMM)</content > Leukocytes 4.4-11.0 <content [facility] [#/volume] in styleCode="Bold [facility] Blood by ">White Blood Medical Automated count Cell Count Center </content>7.76 KCUMM<content styleCode="Ital ics"> (4.4-11.0 KCUMM)</content > Hematocrit 41.0-53. Below low normal <content [facility] [Volume 0 styleCode="Bold Anthony Fraction] of ">Hematocrit Medical Blood by </content>38.0 Center Automated count % L<content styleCode="Ital ics"> (41.0-53.0 %)</content> Erythrocyte mean 26.0-34. <content [facility] corpuscular 0 styleCode="Bold Anthony hemoglobin ">Mean Medical [Entitic mass] Corposcular Center by Automated Hemoglobin count </content>28.4 PG<content styleCode="Ital ics"> (26.0-34.0 PG)</content> Hemoglobin 13.5-17. Below low normal <content [facility] [Mass/volume] in 5 styleCode="Bold Anthony Blood ">Hemoglobin Medical </content>13.4 Center G/DL L<content styleCode="Ital ics"> (13.5-17.5 G/DL)</content> Erythrocyte mean 80.0-100 <content [facility] corpuscular .0 styleCode="Bold Anthony volume [Entitic ">Mean Medical volume] by Corpuscular Center Automated count Volume </content>80.5 FL<content styleCode="Ital ics"> (80.0-100.0 FL)</content> Erythrocyte mean 32.0-37. <content [facility] corpuscular 0 styleCode="Bold Anthony hemoglobin ">Mean Corpus. Medical concentration Hgb Center [Mass/volume] by Concentration Automated count (MCHC) </content>35.3 G/DL<content styleCode="Ital ics"> (32.0-37.0 G/DL)</content> Platelet mean 8.0-11.0 Above high <content Saint volume [Entitic normal styleCode="Bold Anthony volume] in Blood ">Mean Platelet Medical by Automated Volume Center count </content>11.7 FL H<content styleCode="Ital ics"> (8.0-11.0 FL)</content> Erythrocyte 11.5-14. <content [facility] distribution 5 styleCode="Bold Anthony width [Ratio] by ">Red Cell Medical Automated count Distribution Center Width </content>13.3 %<content styleCode="Ital ics"> (11.5-14.5 %)</content> Neutrophils 36-66 Above high <content Saint [#/volume] in normal styleCode="Bold [facility] Blood by ">Neutrophil Medical Automated count </content>74.8 Center % H<content styleCode="Ital ics"> (36-66 %)</content> Platelets 130-400 <content Saint [#/volume] in styleCode="Bold [facility] Blood by ">Platelet Medical Automated count Count Center </content>207 KCUMM<content styleCode="Ital ics"> (130-400 KCUMM)</content > UNK 1.6-7.3 <content Saint styleCode="Bold Anthony ">Neutrophil Medical Count Center </content>5.81 KCUMM<content styleCode="Ital ics"> (1.6-7.3 KCUMM)</content > UNK 0.2-0.9 <content Saint styleCode="Bold Anthony ">Monocyte Medical Count Center </content>0.75 KCUMM<content styleCode="Ital ics"> (0.2-0.9 KCUMM)</content > UNK 1.0-4.8 <content Saint styleCode="Bold Anthony ">Lymphocyte Medical Count Center </content>1.17 KCUMM<content styleCode="Ital ics"> (1.0-4.8 KCUMM)</content > Eosinophils 0-5.0 <content Saint [#/volume] in styleCode="Bold [facility] Blood by ">Eosinophil Medical Automated count </content>0.0 Center %<content styleCode="Ital ics"> (0-5.0 %)</content> Lymphocytes 24.0-44. Below low normal <content Saint [#/volume] in 0 styleCode="Bold Anthony Blood by ">Lymphocyte Medical Automated count </content>15.1 Center % L<content styleCode="Ital ics"> (24.0-44.0 %)</content> UNK 0.0-0.6 <content Saint styleCode="Bold Anthony ">Eosinophil Medical Count Center </content>0.00 KCUMM<content styleCode="Ital ics"> (0.0-0.6 KCUMM)</content > Monocytes 3.0-10.0 <content Saint [#/volume] in styleCode="Bold Anthony Blood by ">Monocyte Medical Automated count </content>9.7 Center %<content styleCode="Ital ics"> (3.0-10.0 %)</content> Basophils 0.0-1.0 <content [facility] [#/volume] in styleCode="Bold Anthony Blood by ">Basophil Medical Automated count </content>0.1 Center %<content styleCode="Ital ics"> (0.0-1.0 %)</content> UNK 0 <content Saint styleCode="Bold Anthony ">Nucleated Red Medical Blood Cell Center </content>0.0 /100<content styleCode="Ital ics"> (0 /100)</content> UNK 0-0.1 <content [facility] styleCode="Bold Anthony ">Immature Medical Granulocyte Center Count </content>0.02 KCUMM<content styleCode="Ital ics"> (0-0.1 KCUMM)</content > UNK 0.0-0.3 <content Saint styleCode="Bold Anthony ">Basophil Medical Count Center </content>0.01 KCUMM<content styleCode="Ital ics"> (0.0-0.3 KCUMM)</content > UNK 0.0 <content Saint styleCode="Bold Anthony ">Nucleated Red Medical Blood Cell Center Count </content>0.00 KCUMM<content styleCode="Ital ics"> (0.0 KCUMM)</content > UNK < 1 <content [facility] styleCode="Bold Anthony ">Immature Medical Granulocyte Center Ratio </content>0.3 %<content styleCode="Ital ics"> (< 1 %)</content> ID Date Data Source GFR(Creatinine).[id number] 08/20/2019 05:50:00 AM EDT [facility] 0-0400 Name Value Range Interpretation Code Description Data Ofelia rce(s) Supporting Document(s ) UNK > 60 <content [facility] styleCode="Bold"> Medical Cent er EGFR </content>64 GFR<content styleCode="Italic s"> (> 60 GFR)</content> ID Date Data Source Coagulation 08/20/2019 05:50:00 AM [facility] Center Rout.[id number] EDT Name Value Range Interpretation Description Data Sup porting Code Source(s) Document(s ) UNK 9.0-13.0 Above high normal <content [facility] styleCode="Bold" Anthony >Protime Medical </content>14.0 Center SEC H<content styleCode="Itali cs"> (9.0-13.0 SEC)</content> INR in 0.80-1.2 Above high normal <content [facility] Platelet poor 0 styleCode="Bold" Anthony plasma by >INR Medical Coagulation </content>1.26 # Center assay H<content styleCode="Itali cs"> (0.80-1.20 #)</content> aPTT in 25.1-36. Below low normal <content [facility] Platelet poor 5 styleCode="Bold" Anthony plasma by >Partial Medical Coagulation Thromboplastin Center assay Time </content>22.8 SEC L<content styleCode="Itali cs"> (25.1-36.5 SEC)</content> ID Date Data Source BMP.[id number] 08/20/2019 05:50:00 AM EDT [facility] Name Value Range Interpretation Description Data Sup porting Code Source(s) Document(s ) Chloride 98-107 <content [facility] [Moles/volume] styleCode="Rodney Anthony in Serum or d">Chloride Medical Plasma </content>100 Center MEQ/L<content styleCode="Eliza lics"> (98-107 MEQ/L)</conten t> UNK 9-20 <content [facility] styleCode="Rodney Anthony d">BUN Medical </content>16 Center MG/DL<content styleCode="Eliza lics"> (9-20 MG/DL)</conten t> Potassium 3.5-5.3 <content [facility] [Moles/volume] styleCode="Rodney Anthony in Serum or d">Potassium Medical Plasma </content>5.0 Center MEQ/L<content styleCode="Eliza lics"> (3.5-5.3 MEQ/L)</conten t> Creatinine 0.5-1.3 <content [facility] [Mass/volume] styleCode="Rodney Anthony in Serum or d">Creatinine Medical Plasma </content>1.2 Center MG/DL<content styleCode="Eliza lics"> (0.5-1.3 MG/DL)</conten t> Carbon 22-30 <content [facility] dioxide, total styleCode="Rodney Anthony [Moles/volume] d">Carbon Medical in Serum or Dioxide Center Plasma </content>23 MEQ/L<content styleCode="Eliza lics"> (22-30 MEQ/L)</conten t> Sodium 137-145 Below low normal <content [facility] [Moles/volume] styleCode="Rodney Anthony in Serum or d">Sodium Medical Plasma </content>133 Center MEQ/L L<content styleCode="Eliza lics"> (137-145 MEQ/L)</conten t> Glucose 74-106 Above high normal <content [facility] [Mass/volume] styleCode="Rodney Anthony in Serum or d">Glucose Medical Plasma </content>109 Center MG/DL H<content styleCode="Eliza lics"> (74-106 MG/DL)</conten t> UNK > 60 <content [facility] styleCode="Rodney Anthony d">EGFR Medical </content>64 Center GFR<content styleCode="Eliza lics"> (> 60 GFR)</content> Calcium 8.4-10.2 <content [facility] [Mass/volume] styleCode="Rodney Anthony in Serum or d">Calcium Medical Plasma </content>8.7 Center MG/DL<content styleCode="Eliza lics"> (8.4-10.2 MG/DL)</conten t> ID Date Data Source Urinalysis.[id number] 05/19/2019 02:05:00 AM [facility] 0 Name Value Range Interpretation Description Data Sup porting Code Source(s) Document(s ) Glucose NEGATIVE <content [facility] [Mass/volume] styleCode="Rodney Cruz in Urine by d">Urine Medical Test strip Glucose Center </content>NEGA TIVE MG/DL<content styleCode="Eliza lics"> (NEGATIVE MG/DL)</conten t> UNK NEGATIVE <content [facility] styleCode="Rodney Newtons d">Urine Medical Bilirubin Center </content>NEGA TIVE <content styleCode="Eliza lics"> (NEGATIVE )</content> Color of Urine YELLOW <content [facility] styleCode="Rodney Newtons d">Color, Medical Urine Center </content>YELL OW <content styleCode="Eliza lics"> (YELLOW )</content> UNK CLEAR <content [facility] styleCode="Rodney Newtons d">Urine Medical Clarity Center </content>PAM R <content styleCode="Eliza lics"> (CLEAR )</content> Ketones NEGATIVE <content [facility] [Mass/volume] styleCode="Rodney Cruz in Urine by d">Urine Medical Test strip Ketone Center </content>NEGA TIVE MG/DL<content styleCode="Eliza lics"> (NEGATIVE MG/DL)</conten t> Specific 1.015-1.02 Below low normal <content [facility] gravity of 5 styleCode="Rodney Cruz Urine by Test d">Urine Medical strip Specific Center [place] </content>1.01 0 L<content styleCode="Eliza lics"> (1.015-1.025 )</content> Protein NEGATIVE <content [facility] [Mass/volume] styleCode="Rodney Cruz in Urine by d">Urine Medical Test strip Protein Center </content>NEGA TIVE MG/DL<content styleCode="Eliza lics"> (NEGATIVE MG/DL)</conten t> pH of Urine by 4.5-8.0 <content [facility] Test strip styleCode="Rodney Anthony d">Urine pH Medical </content>5.5 Center <content styleCode="Eliza lics"> (4.5-8.0 )</content> Nitrite NEGATIVE <content [facility] [Presence] in styleCode="Rodney Anthony Urine by Test d">Urine Medical strip Nitrite Center </content>NEGA TIVE <content styleCode="Eliza lics"> (NEGATIVE )</content> Hemoglobin NEGATIVE <content [facility] [Presence] in styleCode="Rodney Newtons Urine by Test d">Urine Blood Medical strip </content>TRAC Center E <content styleCode="Eliza lics"> (NEGATIVE )</content> Urobilinogen 0.2-1.0 <content [facility] [Units/volume] styleCode="Rodney Anthony in Urine by d">Urine Medical Test strip Urobilinogen Center </content>0.2 MG/DL<content styleCode="Eliza lics"> (0.2-1.0 MG/DL)</conten t> UNK NEGATIVE <content [facility] styleCode="Rodney Anthony d">Urine Medical Bacteria Center </content>FEW HPF<content styleCode="Eliza lics"> (NEGATIVE HPF)</content> UNK 0-3 <content [facility] styleCode="Rodney Anthony d">Urine White Medical Blood Cell Center </content>0-3 HPF<content styleCode="Eliza lics"> (0-3 HPF)</content> UNK 0-3 <content [facility] styleCode="Rodney Anthony d">Urine Red Medical Blood Cell Center </content>0-3 HPF<content styleCode="Eliza lics"> (0-3 HPF)</content> Leukocyte NEGATIVE <content [facility] esterase styleCode="Rodney Anthony [Presence] in d">Urine Medical Urine by Test Leukocyte Center strip </content>NEGA TIVE <content styleCode="Eliza lics"> (NEGATIVE )</content> ID Date Data Source HematologyRou.[id number] 05/19/2019 02:05:00 AM [facility] 0500 Name Value Range Interpretation Description Data Sup porting Code Source(s) Document(s ) Leukocytes 4.4-11.0 <content [facility] [#/volume] in styleCode="Bold Anthony Blood by ">White Blood Medical Automated count Cell Count Center </content>5.06 KCUMM<content styleCode="Ital ics"> (4.4-11.0 KCUMM)</content > Erythrocytes 4.4-5.9 <content [facility] [#/volume] in styleCode="Bold Anthony Blood by ">Red Blood Medical Automated count Cell Count Center </content>5.20 MCUMM<content styleCode="Ital ics"> (4.4-5.9 MCUMM)</content > Hemoglobin 13.5-17. <content [facility] [Mass/volume] in 5 styleCode="Bold Anthony Blood ">Hemoglobin Medical </content>14.6 Center G/DL<content styleCode="Ital ics"> (13.5-17.5 G/DL)</content> Hematocrit 41.0-53. <content [facility] [Volume 0 styleCode="Bold [facility] Fraction] of ">Hematocrit Medical Blood by </content>41.2 Center Automated count %<content styleCode="Ital ics"> (41.0-53.0 %)</content> Erythrocyte mean 80.0-100 Below low normal <content [facility] corpuscular .0 styleCode="Bold Anthony volume [Entitic ">Mean Medical volume] by Corpuscular Center Automated count Volume </content>79.2 FL L<content styleCode="Ital ics"> (80.0-100.0 FL)</content> Erythrocyte mean 26.0-34. <content [facility] corpuscular 0 styleCode="Bold Anthony hemoglobin ">Mean Medical [Entitic mass] Corposcular Center by Automated Hemoglobin count </content>28.1 PG<content styleCode="Ital ics"> (26.0-34.0 PG)</content> Platelet mean 8.0-11.0 <content [facility] volume [Entitic styleCode="Bold Anthony volume] in Blood ">Mean Platelet Medical by Automated Volume Center count </content>9.3 FL<content styleCode="Ital ics"> (8.0-11.0 FL)</content> Erythrocyte mean 32.0-37. <content [facility] corpuscular 0 styleCode="Bold Anthony hemoglobin ">Mean Corpus. Medical concentration Hgb Center [Mass/volume] by Concentration Automated count (MCHC) </content>35.4 G/DL<content styleCode="Ital ics"> (32.0-37.0 G/DL)</content> UNK 0.0 <content [facility] styleCode="Bold Anthony ">Nucleated Red Medical Blood Cell Center Count </content>0.00 KCUMM<content styleCode="Ital ics"> (0.0 KCUMM)</content > Platelets 130-400 <content [facility] [#/volume] in styleCode="Bold Anthony Blood by ">Platelet Medical Automated count Count Center </content>275 KCUMM<content styleCode="Ital ics"> (130-400 KCUMM)</content > UNK 0 <content [facility] styleCode="Bold Anthony ">Nucleated Red Medical Blood Cell Center </content>0.0 /100<content styleCode="Ital ics"> (0 /100)</content> Erythrocyte 11.5-14. <content [facility] distribution 5 styleCode="Ray Cruz width [Ratio] by ">Red Cell Medical Automated count Distribution Center Width </content>14.5 %<content styleCode="Ital ics"> (11.5-14.5 %)</content> ID Date Data Source GFR(Creatinine).[id number] 05/19/2019 02:05:00 AM EST [facility] 0-0500 Name Value Range Interpretation Code Description Data Ofelia rce(s) Supporting Document(s ) UNK > 60 <content [facility] styleCode="Bold"> Medical Cent er EGFR </content>77 GFR<content styleCode="Italic s"> (> 60 GFR)</content> ID Date Data Source GIOOUTINECCDA.[id number] 05/19/2019 02:05:00 AM [facility] -0500 Name Value Range Interpretation Description Data Sup porting Code Source(s) Document(s ) Cannabinoids <content [facility] [Presence] in styleCode="Rodney Newtons Urine by Screen d">Cannabinoid Medical method >50 ng/mL s Center </content>NEGA TIVE NG/ML (Reference Range: not available)<br/ > ID Date Data Source CardiacMarkers.[id number] 05/19/2019 02:05:00 AM [facility] -0500 Name Value Range Interpretation Description Data Sup porting Code Source(s) Document(s ) Troponin < 0.034 <content [facility] I.cardiac styleCode="Bold Anthony [Mass/volume ">Troponin I Medical ] in Serum </content>< Center or Plasma 0.012 NG/ML<content styleCode="Ital ics"> (< 0.034 NG/ML)</content > ID Date Data Source BMP.[id number] 05/19/2019 02:05:00 AM EST [facility] Name Value Range Interpretation Description Data Sup porting Code Source(s) Document(s ) UNK 9-20 <content [facility] styleCode="Rodney Anthony d">BUN Medical </content>19 Center MG/DL<content styleCode="Eliza lics"> (9-20 MG/DL)</conten t> Creatinine 0.5-1.3 <content [facility] [Mass/volume] styleCode="Rodney Anthony in Serum or d">Creatinine Medical Plasma </content>1.2 Center MG/DL<content styleCode="Eliza lics"> (0.5-1.3 MG/DL)</conten t> Potassium 3.5-5.3 <content [facility] [Moles/volume] styleCode="Rodney Anthony in Serum or d">Potassium Medical Plasma </content>4.3 Center MEQ/L<content styleCode="Eliza lics"> (3.5-5.3 MEQ/L)</conten t> Carbon 22-30 <content [facility] dioxide, total styleCode="Rodney Anthony [Moles/volume] d">Carbon Medical in Serum or Dioxide Center Plasma </content>27 MEQ/L<content styleCode="Eliza lics"> (22-30 MEQ/L)</conten t> Sodium 137-145 <content [facility] [Moles/volume] styleCode="Rodney Newtons in Serum or d">Sodium Medical Plasma </content>141 Center MEQ/L<content styleCode="Eliza lics"> (137-145 MEQ/L)</conten t> Chloride 98-107 <content [facility] [Moles/volume] styleCode="Rodney Newtons in Serum or d">Chloride Medical Plasma </content>104 Center MEQ/L<content styleCode="Eliza lics"> (98-107 MEQ/L)</conten t> Calcium 8.4-10.2 <content [facility] [Mass/volume] styleCode="Rodney Cruz in Serum or d">Calcium Medical Plasma </content>10.1 Center MG/DL<content styleCode="Eliza lics"> (8.4-10.2 MG/DL)</conten t> Glucose 74-106 <content [facility] [Mass/volume] styleCode="Rodney Cruz in Serum or d">Glucose Medical Plasma </content>84 Center MG/DL<content styleCode="Eliza lics"> (74-106 MG/DL)</conten t> UNK > 60 <content [facility] styleCode="Rodney Cruz d">EGFR Medical </content>77 Center GFR<content styleCode="Eliza lics"> (> 60 GFR)</content> ID Date Data Source Liver 04/03/2019 02:00:00 AM EST [facility] Profile.[id number] Name Value Range Interpretation Description Data Sup porting Code Source(s) Document(s ) Alanine 7-50 <content [facility] aminotransferase styleCode="Bold"> Torin hs [Enzymatic Alanine Medical activity/volume] Aminotransferase Center in Serum or Plasma (ALT) </content>25 IU/L<content styleCode="Italic s"> (7-50 IU/L)</content> Aspartate 17-59 <content [facility] aminotransferase styleCode="Bold"> Torin hs [Enzymatic Aspartate Medical activity/volume] Aminotransferase Center in Serum or Plasma (AST) </content>41 IU/L<content styleCode="Italic s"> (17-59 IU/L)</content> UNK 0.0-0.3 <content [facility] styleCode="Bold"> Anthony Bilirubin, Direct Medical </content>< 0.2 Center MG/DL<content styleCode="Italic s"> (0.0-0.3 MG/DL)</content> Albumin 3.5-5.0 <content [facility] [Mass/volume] in styleCode="Bold"> Torin hs Serum or Plasma Albumin Medical </content>4.4 Center G/DL<content styleCode="Italic s"> (3.5-5.0 G/DL)</content> Bilirubin.total 0.2-1.3 <content [facility] [Mass/volume] in styleCode="Bold"> Torin hs Serum or Plasma Bilirubin Total Medical </content>0.7 Center MG/DL<content styleCode="Italic s"> (0.2-1.3 MG/DL)</content> Alkaline 38-126 <content [facility] phosphatase styleCode="Bold"> Anthony [Enzymatic Alkaline Medical activity/volume] Phosphatase (ALP) Cente r in Serum or Plasma </content>93 IU/L<content styleCode="Italic s"> (38-126 IU/L)</content> ID Date Data Source HematologyRou.[id number] 04/03/2019 02:00:00 AM [facility] 0500 Name Value Range Interpretation Description Data Sup porting Code Source(s) Document(s ) Leukocytes 4.4-11.0 <content [facility] [#/volume] in styleCode="Bold [facility] Blood by ">White Blood Medical Automated count Cell Count Center </content>5.39 KCUMM<content styleCode="Ital ics"> (4.4-11.0 KCUMM)</content > Hemoglobin 13.5-17. <content [facility] [Mass/volume] in 5 styleCode="Bold Anthony Blood ">Hemoglobin Medical </content>13.8 Center G/DL<content styleCode="Ital ics"> (13.5-17.5 G/DL)</content> Erythrocytes 4.4-5.9 <content [facility] [#/volume] in styleCode="Bold Anthony Blood by ">Red Blood Medical Automated count Cell Count Center </content>4.96 MCUMM<content styleCode="Ital ics"> (4.4-5.9 MCUMM)</content > Erythrocyte mean 80.0-100 Below low normal <content [facility] corpuscular .0 styleCode="Bold Anthony volume [Entitic ">Mean Medical volume] by Corpuscular Center Automated count Volume </content>79.6 FL L<content styleCode="Ital ics"> (80.0-100.0 FL)</content> Hematocrit 41.0-53. Below low normal <content [facility] [Volume 0 styleCode="Bold Anthony Fraction] of ">Hematocrit Medical Blood by </content>39.5 Center Automated count % L<content styleCode="Ital ics"> (41.0-53.0 %)</content> Platelets 130-400 <content [facility] [#/volume] in styleCode="Bold Anthony Blood by ">Platelet Medical Automated count Count Center </content>254 KCUMM<content styleCode="Ital ics"> (130-400 KCUMM)</content > Erythrocyte mean 26.0-34. <content [facility] corpuscular 0 styleCode="Bold Anthony hemoglobin ">Mean Medical [Entitic mass] Corposcular Center by Automated Hemoglobin count </content>27.8 PG<content styleCode="Ital ics"> (26.0-34.0 PG)</content> Erythrocyte 11.5-14. Above high <content [facility] distribution 5 normal styleCode="Bold Anthony width [Ratio] by ">Red Cell Medical Automated count Distribution Center Width </content>14.6 % H<content styleCode="Ital ics"> (11.5-14.5 %)</content> Erythrocyte mean 32.0-37. <content [facility] corpuscular 0 styleCode="Bold Anthony hemoglobin ">Mean Corpus. Medical concentration Hgb Center [Mass/volume] by Concentration Automated count (MCHC) </content>34.9 G/DL<content styleCode="Ital ics"> (32.0-37.0 G/DL)</content> Platelet mean 8.0-11.0 <content [facility] volume [Entitic styleCode="Bold Anthony volume] in Blood ">Mean Platelet Medical by Automated Volume Center count </content>9.5 FL<content styleCode="Ital ics"> (8.0-11.0 FL)</content> UNK 0.0 <content [facility] styleCode="Bold Anthony ">Nucleated Red Medical Blood Cell Center Count </content>0.00 KCUMM<content styleCode="Ital ics"> (0.0 KCUMM)</content > UNK 0 <content [facility] styleCode="Bold Anthony ">Nucleated Red Medical Blood Cell Center </content>0.0 /100<content styleCode="Ital ics"> (0 /100)</content> ID Date Data Source GFR(Creatinine).[id number] 04/03/2019 02:00:00 AM [facility] 0-0500 Name Value Range Interpretation Code Description Data Ofelia rce(s) Supporting Document(s ) UNK > 60 <content [facility] styleCode="Bold"> Medical Cent er EGFR </content>86 GFR<content styleCode="Italic s"> (> 60 GFR)</content> ID Date Data Source BMP.[id number] 04/03/2019 02:00:00 AM [facility] Name Value Range Interpretation Description Data Sup porting Code Source(s) Document(s ) Sodium 137-145 <content [facility] [Moles/volume] in styleCode="Bold"> [facility] Serum or Plasma Sodium Medical </content>143 Center MEQ/L<content styleCode="Italic s"> (137-145 MEQ/L)</content> Chloride 98-107 <content [facility] [Moles/volume] in styleCode="Bold"> [facility] Serum or Plasma Chloride Medical </content>106 Center MEQ/L<content styleCode="Italic s"> (98-107 MEQ/L)</content> Potassium 3.5-5.3 <content [facility] [Moles/volume] in styleCode="Bold"> [facility] Serum or Plasma Potassium Medical </content>3.9 Center MEQ/L<content styleCode="Italic s"> (3.5-5.3 MEQ/L)</content> Glucose 74-106 <content [facility] [Mass/volume] in styleCode="Bold"> Torin hs Serum or Plasma Glucose Medical </content>89 Center MG/DL<content styleCode="Italic s"> (74-106 MG/DL)</content> Carbon dioxide, 22-30 <content [facility] total styleCode="Bold"> Anthony [Moles/volume] in Carbon Dioxide Medical Serum or Plasma </content>24 Center MEQ/L<content styleCode="Italic s"> (22-30 MEQ/L)</content> UNK 9-20 <content [facility] styleCode="Bold"> Anthony BUN </content>19 Medical MG/DL<content Center styleCode="Italic s"> (9-20 MG/DL)</content> Creatinine 0.5-1.3 <content [facility] [Mass/volume] in styleCode="Bold"> Torin hs Serum or Plasma Creatinine Medical </content>1.1 Center MG/DL<content styleCode="Italic s"> (0.5-1.3 MG/DL)</content> Calcium 8.4-10. <content [facility] [Mass/volume] in 2 styleCode="Bold"> Torin hs Serum or Plasma Calcium Medical </content>9.9 Center MG/DL<content styleCode="Italic s"> (8.4-10.2 MG/DL)</content> Alkaline 38-126 <content [facility] phosphatase styleCode="Bold"> Anthony [Enzymatic Alkaline Medical activity/volume] Phosphatase (ALP) Cente r in Serum or Plasma </content>93 IU/L<content styleCode="Italic s"> (38-126 IU/L)</content> UNK > 60 <content [facility] styleCode="Bold"> Anthony EGFR </content>86 Medical GFR<content Center styleCode="Italic s"> (> 60 GFR)</content> Aspartate 17-59 <content [facility] aminotransferase styleCode="Bold"> Torin hs [Enzymatic Aspartate Medical activity/volume] Aminotransferase Center in Serum or Plasma (AST) </content>41 IU/L<content styleCode="Italic s"> (17-59 IU/L)</content> Alanine 7-50 <content [facility] aminotransferase styleCode="Bold"> Tor[place] hs [Enzymatic Alanine Medical activity/volume] Aminotransferase Center in Serum or Plasma (ALT) </content>25 IU/L<content styleCode="Italic s"> (7-50 IU/L)</content> Bilirubin.total 0.2-1.3 <content [facility] [Mass/volume] in styleCode="Bold"> Tor[place] hs Serum or Plasma Bilirubin Total Medical </content>0.7 Center MG/DL<content styleCode="Italic s"> (0.2-1.3 MG/DL)</content> Albumin 3.5-5.0 <content [facility] [Mass/volume] in styleCode="Bold"> Torin hs Serum or Plasma Albumin Medical </content>4.4 Center G/DL<content styleCode="Italic s"> (3.5-5.0 G/DL)</content> ID Date Data Source Liver 01/31/2019 10:54:00 AM EDT [facility] Profile.[id number] Name Value Range Interpretation Description Data Sup porting Code Source(s) Document(s ) Aspartate 17-59 <content [facility] aminotransferase styleCode="Bold"> Torin hs [Enzymatic Aspartate Medical activity/volume] Aminotransferase Center in Serum or Plasma (AST) </content>37 IU/L<content styleCode="Italic s"> (17-59 IU/L)</content> Alkaline 38-126 <content [facility] phosphatase styleCode="Bold"> Anthony [Enzymatic Alkaline Medical activity/volume] Phosphatase (ALP) Cente r in Serum or Plasma </content>106 IU/L<content styleCode="Italic s"> (38-126 IU/L)</content> Alanine 7-50 <content [facility] aminotransferase styleCode="Bold"> Tor[place] hs [Enzymatic Alanine Medical activity/volume] Aminotransferase Center in Serum or Plasma (ALT) </content>21 IU/L<content styleCode="Italic s"> (7-50 IU/L)</content> Albumin 3.5-5.0 <content [facility] [Mass/volume] in styleCode="Bold"> Torin hs Serum or Plasma Albumin Medical </content>4.5 Center G/DL<content styleCode="Italic s"> (3.5-5.0 G/DL)</content> UNK 0.0-0.3 <content Saint styleCode="Bold"> [facility] Bilirubin, Direct Medical </content>< 0.2 Center MG/DL<content styleCode="Italic s"> (0.0-0.3 MG/DL)</content> Bilirubin.total 0.2-1.3 <content [facility] [Mass/volume] in styleCode="Bold"> Torin hs Serum or Plasma Bilirubin Total Medical </content>0.6 Center MG/DL<content styleCode="Italic s"> (0.2-1.3 MG/DL)</content> ID Date Data Source HematologyRou.[id number] 01/31/2019 10:54:00 AM EDT [facility] 0400 Name Value Range Interpretation Description Data Sup porting Code Source(s) Document(s ) Erythrocytes 4.4-5.9 <content [facility] [#/volume] in styleCode="Bold [facility] Blood by ">Red Blood Medical Automated count Cell Count Center </content>5.14 MCUMM<content styleCode="Ital ics"> (4.4-5.9 MCUMM)</content > Leukocytes 4.4-11.0 <content Saint [#/volume] in styleCode="Bold Anthony Blood by ">White Blood Medical Automated count Cell Count Center </content>4.80 KCUMM<content styleCode="Ital ics"> (4.4-11.0 KCUMM)</content > Erythrocyte mean 26.0-34. <content [facility] corpuscular 0 styleCode="Bold [facility] hemoglobin ">Mean Medical [Entitic mass] Corposcular Center by Automated Hemoglobin count </content>28.0 PG<content styleCode="Ital ics"> (26.0-34.0 PG)</content> Erythrocyte mean 80.0-100 <content [facility] corpuscular .0 styleCode="Bold Anthony volume [Entitic ">Mean Medical volume] by Corpuscular Center Automated count Volume </content>80.7 FL<content styleCode="Ital ics"> (80.0-100.0 FL)</content> Hematocrit 41.0-53. <content [facility] [Volume 0 styleCode="Bold Anthony Fraction] of ">Hematocrit Medical Blood by </content>41.5 Center Automated count %<content styleCode="Ital ics"> (41.0-53.0 %)</content> Hemoglobin 13.5-17. <content [facility] [Mass/volume] in 5 styleCode="Bold Anthony Blood ">Hemoglobin Medical </content>14.4 Center G/DL<content styleCode="Ital ics"> (13.5-17.5 G/DL)</content> UNK 0 <content Saint styleCode="Bold Anthony ">Nucleated Red Medical Blood Cell Center </content>0.0 /100<content styleCode="Ital ics"> (0 /100)</content> Platelets 130-400 <content Saint [#/volume] in styleCode="Bold Anthony Blood by ">Platelet Medical Automated count Count Center </content>266 KCUMM<content styleCode="Ital ics"> (130-400 KCUMM)</content > Erythrocyte mean 32.0-37. <content [facility] corpuscular 0 styleCode="Bold Anthony hemoglobin ">Mean Corpus. Medical concentration Hgb Center [Mass/volume] by Concentration Automated count (MCHC) </content>34.7 G/DL<content styleCode="Ital ics"> (32.0-37.0 G/DL)</content> Platelet mean 8.0-11.0 <content [facility] volume [Entitic styleCode="Bold Anthony volume] in Blood ">Mean Platelet Medical by Automated Volume Center count </content>9.2 FL<content styleCode="Ital ics"> (8.0-11.0 FL)</content> Erythrocyte 11.5-14. Above high <content [facility] distribution 5 normal styleCode="Ray Newtons width [Ratio] by ">Red Cell Medical Automated count Distribution Center Width </content>14.7 % H<content styleCode="Ital ics"> (11.5-14.5 %)</content> UNK 0.0 <content Saint styleCode="Bold Anthony ">Nucleated Red Medical Blood Cell Center Count </content>0.00 KCUMM<content styleCode="Ital ics"> (0.0 KCUMM)</content > ID Date Data Source GFR(Creatinine).[id number] 01/31/2019 10:54:00 AM EDT [facility] 0-0400 Name Value Range Interpretation Code Description Data Ofelia rce(s) Supporting Document(s ) UNK > 60 <content [facility] styleCode="Bold"> Medical Cent er EGFR </content>86 GFR<content styleCode="Italic s"> (> 60 GFR)</content> ID Date Data Source [facility].[id number] 01/31/2019 10:54:00 AM EDT [facility] Name Value Range Interpretation Description Data Sup porting Code Source(s) Document(s ) Sodium 137-145 <content [facility] [Moles/volume] in styleCode="Bold"> [facility] Serum or Plasma Sodium Medical </content>143 Center MEQ/L<content styleCode="Italic s"> (137-145 MEQ/L)</content> Potassium 3.5-5.3 <content [facility] [Moles/volume] in styleCode="Bold"> [facility] Serum or Plasma Potassium Medical </content>4.5 Center MEQ/L<content styleCode="Italic s"> (3.5-5.3 MEQ/L)</content> Chloride 98-107 <content [facility] [Moles/volume] in styleCode="Bold"> [facility] Serum or Plasma Chloride Medical </content>105 Center MEQ/L<content styleCode="Italic s"> (98-107 MEQ/L)</content> Creatinine 0.5-1.3 <content [facility] [Mass/volume] in styleCode="Bold"> [facility] Serum or Plasma Creatinine Medical </content>1.1 Center MG/DL<content styleCode="Italic s"> (0.5-1.3 MG/DL)</content> UNK 9-20 <content [facility] styleCode="Bold"> [facility] BUN </content>13 Medical MG/DL<content Center styleCode="Italic s"> (9-20 MG/DL)</content> Carbon dioxide, 22-30 <content [facility] total styleCode="Bold"> [facility] [Moles/volume] in Carbon Dioxide Medical Serum or Plasma </content>28 Center MEQ/L<content styleCode="Italic s"> (22-30 MEQ/L)</content> UNK > 60 <content [facility] styleCode="Bold"> [facility] EGFR </content>86 Medical GFR<content Center styleCode="Italic s"> (> 60 GFR)</content> Alanine 7-50 <content [facility] aminotransferase styleCode="Bold"> [facility] [Enzymatic Alanine Medical activity/volume] Aminotransferase Center in Serum or Plasma (ALT) </content>21 IU/L<content styleCode="Italic s"> (7-50 IU/L)</content> Aspartate 17-59 <content [facility] aminotransferase styleCode="Bold"> [facility] [Enzymatic Aspartate Medical activity/volume] Aminotransferase Center in Serum or Plasma (AST) </content>37 IU/L<content styleCode="Italic s"> (17-59 IU/L)</content> Calcium 8.4-10. <content [facility] [Mass/volume] in 2 styleCode="Bold"> [facility] [facility] Serum or Plasma Calcium Medical </content>10.0 Center MG/DL<content styleCode="Italic s"> (8.4-10.2 MG/DL)</content> Alkaline 38-126 <content [facility] phosphatase styleCode="Bold"> Anthony [Enzymatic Alkaline Medical activity/volume] Phosphatase (ALP) Cente r in Serum or Plasma </content>106 IU/L<content styleCode="Italic s"> (38-126 IU/L)</content> Glucose 74-106 <content [facility] [Mass/volume] in styleCode="Bold"> [facility] Serum or Plasma Glucose Medical </content>86 Center MG/DL<content styleCode="Italic s"> (74-106 MG/DL)</content> Bilirubin.total 0.2-1.3 <content [facility] [Mass/volume] in styleCode="Bold"> [facility] [facility] Serum or Plasma Bilirubin Total Medical </content>0.6 Center MG/DL<content styleCode="Italic s"> (0.2-1.3 MG/DL)</content> Albumin 3.5-5.0 <content [facility] [Mass/volume] in styleCode="Bold"> [facility] Serum or Plasma Albumin Medical </content>4.5 Center G/DL<content styleCode="Italic s"> (3.5-5.0 G/DL)</content> ID Date Data Source Urinalysis.[id number] 01/31/2019 10:45:00 AM EDT [facility] 0 Name Value Range Interpretation Description Data Sup porting Code Source(s) Document(s ) Color of Urine YELLOW <content [facility] styleCode="Rodney Newtons d">Color, Medical Urine Center </content>YELL OW <content styleCode="Eliza lics"> (YELLOW )</content> UNK CLEAR <content [facility] styleCode="[facility] d">Urine Medical Clarity Center </content>PAM R <content styleCode="Eliza lics"> (CLEAR )</content> Glucose NEGATIVE <content [facility] [Mass/volume] styleCode="Rodney Cruz in Urine by d">Urine Medical Test strip Glucose Center </content>NEGA TIVE MG/DL<content styleCode="Eliza lics"> (NEGATIVE MG/DL)</conten t> Specific 1.015-1.02 <content [facility] gravity of 5 styleCode="Rodney [facility] Urine by Test d">Urine Medical strip Specific Center [place] </content>1.02 5 <content styleCode="Eliza lics"> (1.015-1.025 )</content> Hemoglobin NEGATIVE <content [facility] [Presence] in styleCode="Rodney Cruz Urine by Test d">Urine Blood Medical strip </content>TRAC Center E <content styleCode="Eliza lics"> (NEGATIVE )</content> Ketones NEGATIVE <content [facility] [Mass/volume] styleCode="Rodney Newtons in Urine by d">Urine Medical Test strip Ketone Center </content>NEGA TIVE MG/DL<content styleCode="Eliza lics"> (NEGATIVE MG/DL)</conten t> UNK NEGATIVE <content Saint styleCode="Rodney Anthony d">Urine Medical Bilirubin Center </content>NEGA TIVE <content styleCode="Eliza lics"> (NEGATIVE )</content> Protein NEGATIVE <content [facility] [Mass/volume] styleCode="Rodney Newtons in Urine by d">Urine Medical Test strip Protein Center </content>NEGA TIVE MG/DL<content styleCode="Eliza lics"> (NEGATIVE MG/DL)</conten t> Nitrite NEGATIVE <content [facility] [Presence] in styleCode="Rodney Newtons Urine by Test d">Urine Medical strip Nitrite Center </content>NEGA TIVE <content styleCode="Eliza lics"> (NEGATIVE )</content> Urobilinogen 0.2-1.0 <content [facility] [Units/volume] styleCode="Rodney Newtons in Urine by d">Urine Medical Test strip Urobilinogen Center </content>0.2 MG/DL<content styleCode="Eliza lics"> (0.2-1.0 MG/DL)</conten t> Leukocyte NEGATIVE <content [facility] esterase styleCode="Rodney Anthony [Presence] in d">Urine Medical Urine by Test Leukocyte Center strip </content>NEGA TIVE <content styleCode="Eliza lics"> (NEGATIVE )</content> pH of Urine by 4.5-8.0 <content [facility] Test strip styleCode="Rodney Anthony d">Urine pH Medical </content>5.5 Center <content styleCode="Eliza lics"> (4.5-8.0 )</content> UNK 0-3 <content Saint styleCode="Rodney Anthony d">Urine Red Medical Blood Cell Center </content>0-3 HPF<content styleCode="Eliza lics"> (0-3 HPF)</content> ID Date Data Source SILVESTREMROUTFLASHCCYOKO.[id number] 01/31/2019 10:45:00 AM EDT [facility] -0400 Name Value Range Interpretation Description Data Sup porting Code Source(s) Document(s ) Cannabinoids <content Saint [Presence] in styleCode="Rodney Cruz Urine by Screen d">Cannabinoid Medical method >50 ng/mL s Center </content>NEGA TIVE NG/ML (Reference Range: not available)<br/ > Procedure Social History Code Duration Value Status Description Data Source(s ) Smoking 08/20/2019 07:45:00 Daily Smoker completed Daily Smoker S [facility] EDT Center Smoking 08/20/2019 07:35:00 Daily Smoker completed Daily Smoker S [facility] EDT Center Smoking 08/20/2019 07:17:00 Daily Smoker completed Daily Smoker S [facility] EDT Center Smoking 08/20/2019 07:02:00 Daily Smoker completed Daily Smoker S [facility] EDT Center Smoking 08/20/2019 06:42:00 Daily Smoker completed Daily Smoker S [facility] EDT Center Smoking 08/20/2019 05:42:00 Daily Smoker completed Daily Smoker S [facility] EDT Center Smoking 08/20/2019 05:22:00 Daily Smoker completed Daily Smoker S [facility] EDT Center Smoking 05/19/2019 02:37:00 Daily Smoker completed Daily Smoker S [facility] EST Center Smoking 05/19/2019 02:12:00 Daily Smoker completed Daily Smoker S [facility] EST Center Smoking 05/19/2019 01:36:00 Daily Smoker completed Daily Smoker S [facility] EST Center Smoking 04/03/2019 03:33:00 Daily Smoker completed Daily Smoker S [facility] EST Center Smoking 04/03/2019 01:30:00 Daily Smoker completed Daily Smoker S [facility] EST Center Smoking 04/03/2019 01:23:00 Daily Smoker completed Daily Smoker S [facility] EST Center Smoking 01/31/2019 06:00:00 Daily Smoker completed Daily Smoker S [facility] EDT Center Smoking 01/31/2019 12:12:00 Daily Smoker completed Daily Smoker S [facility] EDT Center Smoking 01/31/2019 10:18:00 Daily Smoker completed Daily Smoker S [facility] EDT Center Smoking 01/31/2019 09:08:00 Daily Smoker completed Daily Smoker S [facility] EDT Center Vital Signs ID Date Data Source UNK Name Value Range Interpretation Code Description Data Source(s) Body weight 86.562667 kg 86.143717 kg [facility] Body temperature 37.622102 37.181183 [facility] Respiratory rate 18 /min 18 /min [facility] Oxygen saturation 97 % 97 % [facility] by Pulse oximetry Heart rate 80 /min 80 /min [facility] Body height 177.187531 177.287342 cm [facility] Diastolic blood 80 mm[Hg] 80 mm[Hg] [facility] Systolic blood 132 mm[Hg] 132 mm[Hg] [facility] Body mass index 27.2 kg/m2 27.2 kg/m2 [facility] (BMI) [Ratio] Medical [facility] ter Body temperature 36.028543 36.905020 [facility] Respiratory rate 18 /min 18 /min [facility] Oxygen saturation 94 % 94 % [facility] by Pulse oximetry Heart rate 85 /min 85 /min [facility] Diastolic blood 57 mm[Hg] 57 mm[Hg] [facility] Systolic blood 110 mm[Hg] 110 mm[Hg] [facility] Body temperature 37.920154 37.533452 [facility] Respiratory rate 20 /min 20 /min [facility] Oxygen saturation 94 % 94 % [facility] by Pulse oximetry Heart rate 90 /min 90 /min [facility] Diastolic blood 65 mm[Hg] 65 mm[Hg] [facility] Systolic blood 106 mm[Hg] 106 mm[Hg] [facility] Body temperature 39.831263 39.954922 [facility] Respiratory rate 20 /min 20 /min [facility] Oxygen saturation 94 % 94 % [facility] in Arterial blood Medical Center by Pulse oximetry Heart rate 83 /min 83 /min [facility] Diastolic blood 98 mm[Hg] 98 mm[Hg] [facility] pressure Medical [place] Systolic blood 154 mm[Hg] 154 mm[Hg] [facility] Body temperature 36.228345 36.526112 [facility] Respiratory rate 16 /min 16 /min [facility] Oxygen saturation 98 % 98 % [facility] in Arterial blood Medical Center by Pulse oximetry Heart rate 82 /min 82 /min [facility] Diastolic blood 77 mm[Hg] 77 mm[Hg] [facility] Systolic blood 130 mm[Hg] 130 mm[Hg] [facility] Body temperature 36.411265 36.215239 [facility] Respiratory rate 18 /min 18 /min [facility] Oxygen saturation 99 % 99 % [facility] Arterial blood Medical Center by Pulse oximetry Heart rate 86 /min 86 /min [facility] Diastolic blood 77 mm[Hg] 77 mm[Hg] [facility] Systolic blood 127 mm[Hg] 127 mm[Hg] [facility] Body temperature 36.213964 36.277238 [facility] Respiratory rate 17 /min 17 /min [facility] Oxygen saturation 97 % 97 % [facility] Arterial blood Medical Center by Pulse oximetry Heart rate 105 /min 105 /min [facility] Diastolic blood 100 mm[Hg] 100 mm[Hg] [facility] Systolic blood 160 mm[Hg] 160 mm[Hg] [facility] Body temperature 36.643607 36.815101 [facility] Respiratory rate 17 /min 17 /min [facility] Oxygen saturation 98 % 98 % [facility] Arterial blood Medical Center by Pulse oximetry Heart rate 75 /min 75 /min [facility] Diastolic blood 70 mm[Hg] 70 mm[Hg] [facility] Systolic blood 124 mm[Hg] 124 mm[Hg] [facility] Body weight 77.105035 kg 77.945632 kg [facility] Measured [facility] Body temperature 36.179780 36.675094 [facility] Respiratory rate 18 /min 18 /min [facility] Oxygen saturation 97 % 97 % [facility] Nohelia osephs in Arterial blood Medical Center by Pulse oximetry Heart rate 86 /min 86 /min [facility] Body height 177.082731 177.053230 cm [facility] Medical [place] Diastolic blood 75 mm[Hg] 75 mm[Hg] [facility] pressure Medical Center Systolic blood 129 mm[Hg] 129 mm[Hg] [facility] Body mass index 24.3 kg/m2 24.3 kg/m2 [facility] (BMI) [Ratio] Medical [facility] ter Body weight 85.705914 kg 85.451137 kg [facility] Measured [facility] Body height 177.871250 177.929312 cm [facility] Body mass index 26.95 kg/m2 26.95 kg/m2 [facility] J osephs (BMI) [Ratio] Medical [place] ter Body temperature 36.143891 36.795136 [facility] Respiratory rate 18 /min 18 /min [facility] Heart rate 76 /min 76 /min [facility] Diastolic blood 68 mm[Hg] 68 mm[Hg] [facility] Center Systolic blood 110 mm[Hg] 110 mm[Hg] [facility] Body temperature 36.307040 36.851346 [facility] Respiratory rate 18 /min 18 /min [facility] Heart rate 76 /min 76 /min [facility] Diastolic blood 70 mm[Hg] 70 mm[Hg] [facility] Center Systolic blood 125 mm[Hg] 125 mm[Hg] [facility] Body weight 85.475887 kg 85.294370 kg [facility] Measured Medical Center Body height 177.842226 177.013227 cm [facility] Body mass index 26.95 kg/m2 26.95 kg/m2 [facility] (BMI) [Ratio] Medical [facility] ter Body temperature 36.717458 36.582167 [facility] Respiratory rate 18 /min 18 /min [facility] Heart rate 79 /min 79 /min [facility] Diastolic blood 59 mm[Hg] 59 mm[Hg] [facility] Center Systolic blood 120 mm[Hg] 120 mm[Hg] [facility] Body temperature 36.206603 36.125713 Val[facility] Respiratory rate 18 /min 18 /min [facility] Heart rate 75 /min 75 /min [facility] Diastolic blood 74 mm[Hg] 74 mm[Hg] [facility] Systolic blood 106 mm[Hg] 106 mm[Hg] [facility] Body temperature 36.094810 36.892258 [facility] Respiratory rate 20 /min 20 /min [facility] Heart rate 76 /min 76 /min [facility] Diastolic blood 60 mm[Hg] 60 mm[Hg] [facility] Systolic blood 120 mm[Hg] 120 mm[Hg] [facility] Body weight 85.399792 kg 85.709181 kg [facility] Measured [facility] Center Body height 177.766832 177.718036 cm [facility] Body mass index 26.95 kg/m2 26.95 kg/m2 [facility] Medical [facility] ter Body weight 85.673650 kg 85.289904 kg [facility] Measured [facility] Center Body height 177.297821 177.484662 cm [facility] Body mass index 26.89 kg/m2 26.89 kg/m2 [facility] osephs (BMI) [Ratio] Medical [facility] ter Body temperature 36.063638 36.796394 [facility] Respiratory rate 18 /min 18 /min [facility] Heart rate 73 /min 73 /min [facility] Diastolic blood 76 mm[Hg] 76 mm[Hg] [facility] Systolic blood 116 mm[Hg] 116 mm[Hg] [facility] Center Body weight 85.776622 kg 85.316463 kg [facility] Measured Medical Center Body height 177.591764 177.901016 cm [facility] Body mass index 26.89 kg/m2 26.89 kg/m2 [facility] Nohelia osep (BMI) [Ratio] Medical [facility] ter Body temperature 35.844359 35.290111 [facility] Respiratory rate 18 /min 18 /min [facility] Heart rate 74 /min 74 /min [facility] Diastolic blood 61 mm[Hg] 61 mm[Hg] [facility] pressure Medical Center Systolic blood 126 mm[Hg] 126 mm[Hg] [facility] Body temperature 36.632156 36.509638 [facility] Respiratory rate 20 /min 20 /min [facility] Heart rate 78 /min 78 /min [facility] Diastolic blood 66 mm[Hg] 66 mm[Hg] [facility] Center Systolic blood 110 mm[Hg] 110 mm[Hg] [facility] Body weight 85.450202 kg 85.292062 kg [facility] Measured Medical Center Body height 177.922602 177.174516 cm [facility] Body mass index 26.89 kg/m2 26.89 kg/m2 [facility] Medical [facility] ter Body weight 85.915465 kg 85.072843 kg [facility] Measured Medical Center Body temperature 36.947501 36.722211 [facility] Respiratory rate 20 /min 20 /min [facility] Heart rate 72 /min 72 /min [facility] Body height 177.217936 177.695810 cm [facility] Diastolic blood 87 mm[Hg] 87 mm[Hg] [facility] Center Systolic blood 134 mm[Hg] 134 mm[Hg] [facility] Center Body mass index 26.89 kg/m2 26.89 kg/m2 [facility] osep (BMI) [Ratio] Medical [facility] ter Oxygen saturation 97 % 97 % [facility] Nohelia garner in Arterial blood Medical Center by Pulse oximetry Body temperature 36.081569 36.894800 [facility] Respiratory rate 18 /min 18 /min [facility] Heart rate 68 /min 68 /min [facility] Diastolic blood 82 mm[Hg] 82 mm[Hg] [facility] pressure Medical Center Systolic blood 131 mm[Hg] 131 mm[Hg] [facility] pressure Medical Center Oxygen saturation 98 % 98 % [facility] Nohelia garner in Arterial blood Medical Center by Pulse oximetry
[2020-02-16 23:13] VITALS: BMI 25.8
--- NOTE | 2020-02-17 00:23 | HP ---
CIWA Score Nausea/Vomitin Muscle Tremors: 1-None Visible, but [place] Anxiety: 0-No Anxiety, at Ease Agitation: 1-Slight > Activity Paroxysmal Sweats: 3 Orientation: 0-Oriented Tacttile Disturbances: 0-None Auditory Disturbances: 0-None Visual Disturbances: 2-Mild Sensitivity (to light) Headache: 4-Moderately Severe (8/10) CIWA-Ar Total Score: 16 - Admission Criteria OASAS Guidelines: Admission for Medically Managed Detox: Requires at least one of the followin. CIWA greater than 12 2. Seizures within the past 24 hours 3. Delirium tremens within the past 24 hours 4. Hallucinations within the past 24 hours 5. Acute intervention needed for co occurring medical disorder 6. Acute intervention needed for co occurring psychiatric disorder 7. Severe withdrawal that cannot be handled at a lower level of care (continued vomiting, continued diarrhea, abnormal vital signs) requiring intravenous medication and/or fluids 8. Admitting History and Physical - Past Surgical History Past Surgical History: Yes: None - Smoking History Smoking history: Current every day smoker Have you smoked in the past 12 months: Yes Aproximately how many cigarettes per day: 40 - Alcohol/Substance Use Hx Alcohol Use: Yes - Social History ADL: Independent Occupation: unemployed and homeless History of Recent Travel: No Admission ROS [facility] - [facility] Chief Complaint: c/o withdrawal sx'. seeking detox Allergies/Adverse Reactions: Allergies Allergy/AdvReac Type Severity Reaction Status Date / Time No Known Allergies Allergy Verified 02/03/20 11:31 History of Present Illness: HERE FOR ALCOHOL DETOX. CLIENT IS SELF REFERRED. KNOWN TO PROGRAM. DC 10 DAYS AGO . CLIENT REPORTS IMMEDIATELY RELAPSING AFTER DC. DRINK 2 SIX PACKS DAILY. LAST USE THIS MORNING. DENIES ANY SIGNIFICANT PERIOD OF CLEAN TIME IN THE PAST 12 MONTHS. + HX/O BLACK OUTS, MOST RECENT 2 DAYS AGO. DENIES HX/O SZ. LIVES ALONE, UNEMPLOYED, DENIES LEGALS. Exam Limitations: No Limitations - Ebola screening Have you traveled outside of the country in the last 21 days: No Have you had contact with anyone from an Ebola affected area: No Have you been sick,other than usual withdrawal symptoms: No Do you have a fever: No - Review of Systems Constitutional: Chills, Night Sweats, Unintentional Wgt. Loss EENT: reports: Blurred Vision (CORRECTIVE LENSES), Dental Problems (MISSING TEETH) Respiratory: reports: No Symptoms reported Cardiac: reports: No Symptoms Reported GI: reports: Diarrhea, Nausea, Poor Fluid Intake, Vomiting : reports: No Symptoms Reported Musculoskeletal: reports: Back Pain Integumentary: reports: No Symptoms Reported Neuro: reports: Headache, Tremors Endocrine: reports: No Symptoms Reported Hematology: reports: No Symptoms Reported Psychiatric: reports: Orientated x3, Agitated (IRRITABLE), Depressed (DENIES SI/HI/AVH) Other Systems: Reviewed and Negative Patient History - Patient Medical History Hx Anemia: No Hx Asthma: No Hx Chronic Obstructive Pulmonary Disease (COPD): No Hx Cancer: No Hx Cardiac Disorders: No Hx Congestive Heart Failure: No Hx Hypertension: No Hx Hypercholesterolemia: No Hx Pacemaker: No HX Cerebrovascular Accident: No Hx Seizures: No Hx Dementia: No Hx Diabetes: No Hx Gastrointestinal Disorders: No Hx Liver Disease: No Hx Genitourinary Disorders: No Hx Sexually Transmitted Disorders: No Hx Renal Disease (ESRD): No Hx Thyroid Disease: No Hx Human Immunodeficiency Virus (HIV): No Hx Hepatitis C: No Hx Depression: No Hx Suicide Attempt: No Hx Bipolar Disorder: No Hx Schizophrenia: No Other Medical History: DENIES - Patient Surgical History Past Surgical History: No Hx Neurologic Surgery: No Hx Cataract Extraction: No Hx Cardiac Surgery: No Hx Lung Surgery: No Hx Breast Surgery: No Hx Breast Biopsy: No Hx Abdominal Surgery: No Hx Appendectomy: No Hx Cholecystectomy: No Hx Genitourinary Surgery: No Hx Section: No Hx Orthopedic Surgery: No Anesthesia Reaction: No - PPD History Previous Implant?: Yes Documented Results: Negative w/proof Implanted On Prior [facility] Admission?: Yes Date: 10/20/19 Results: 0 mm PPD to be Administered?: No - Smoking Cessation Smoking history: Current every day smoker Have you smoked in the past 12 months: Yes Aproximately how many cigarettes per day: 40 Cigars Per Day: 0 Hx Chewing Tobacco Use: No Initiated information on smoking cessation: Yes 'Breaking Loose' booklet given: 02/17/20 - Substance & Tx. History Hx Alcohol Use: Yes Hx Substance Use: Yes Substance Use Type: Alcohol Hx Substance Use Treatment: Yes ([facility]) - Substances abused Alcohol Other (specify): BEER Substance route: Oral Frequency: Daily Amount used: 2-3 -6 PACKS Age of first use: 16 Date of last use: 02/16/20 Admission Physical Exam [facility] - Vital Signs Vital Signs: Vital Signs - 24 hr 02/16/20 23:12 Temperature 98.3 F Pulse Rate 83 Respiratory 18 Rate Blood Pressure 106/52 L - Physical General Appearance: Yes: Tremorous, Anxious HEENTM: Yes: EOMI, Normocephalic, Normal Voice, DAVIS, Pharynx Normal, Other (missing teeth) Respiratory: Yes: Chest Non-Tender, Lungs Clear, Normal Breath Sounds, No Respiratory Distress, No Accessory Muscle Use Neck: Yes: No masses,lesions,Nodules, Supple, Trachea in good position Breast: Yes: Breasts Symetrical Cardiology: Yes: Regular Rhythm, Regular Rate, S1, S2 Abdominal: Yes: Normal Bowel Sounds, Non Tender, Soft Genitourinary: Yes: Within Normal Limits Back: Yes: Normal Inspection Musculoskeletal: Yes: full range of Motion, Gait Steady Extremities: Yes: Normal Capillary Refill, Normal Range of Motion, Non-Tender, Tremors 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: Yes: Fully Oriented, Alert, Motor Strength 5/5 Integumentary: Yes: Dry, Warm, Other (dry calluses of feet.) Lymphatic: Yes: Within Normal Limits - Diagnostic (1) At risk for dehydration due to poor fluid intake Current Visit: Yes Status: Acute (2) Risk for falls Current Visit: Yes Status: Acute (3) Alcohol dependence with uncomplicated withdrawal Current Visit: Yes Status: Acute (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 (5) Cocaine dependence, uncomplicated Current Visit: Yes Status: Chronic (6) Nicotine dependence Current Visit: Yes Status: Chronic Qualifiers: Nicotine product type: cigarettes Substance use status: uncomplicated Qualified Code(s): F17.210 - Nicotine dependence, cigarettes, uncomplicated (7) Substance induced mood disorder Current Visit: Yes Status: Acute Cleared for Admission [facility] - Detox or Rehab [facility] Level of Care: Medically Managed Detox Regimen/Protocol: Ativan Claeared for Rehab Admission: No Breathalyzer - Breathalyzer Breathalyzer: 0 Urine Drug Screen - Test Device Lot number: [id number] Expiration date: 08/12/21 - Control Is test valid?: Yes - Results Drug screen NEGATIVE: No Urine drug screen results: MADHURI-Cocaine, BZO-Benzodiazepines Inpatient Rehab Admission - Rehab Decision to Admit Inpatient rehab admission?: No
[2020-02-17] MEDS ORDERED: IBUPROFEN 400 MG TABLET (FP) PO PRN (00:26)
[2020-02-17] MEDS ORDERED: MENTHOL/PHENOL 1 EACH UD MM PRN (00:26)
[2020-02-17] MEDS ORDERED: DICYCLOMINE HCL 10 MG CAPSULE PO PRN (00:26)
[2020-02-17] MEDS ORDERED: METHOCARBAMOL 500 MG TABLET PO PRN (00:26)
[2020-02-17] MEDS ORDERED: guaiFENesin 200 MG/10 ML 10 ML UNIT-DOSE CUPS PO PRN (00:26)
[2020-02-17] MEDS ORDERED: ACETAMINOPHEN 325 MG TABLET (FP) PO PRN ×2 (00:26)
[2020-02-17] MEDS ORDERED: ONDANSETRON *ODT* 4 MG TABLET SL PRN (00:26)
[2020-02-17] MEDS ORDERED: P-EPHED 60MG/TRIPROLIDI 2.5MG TABLET PO PRN (00:26)
[2020-02-17] MEDS ORDERED: BISMUTH SUBSALICYLATE 524 MG/30 ML UD PO PRN (00:26)
[2020-02-17] MEDS ORDERED: NICOTINE POLACRILEX 4 MG GUM BUC PRN (00:26)
[2020-02-17] MEDS ORDERED: MAG HYDROX/AL HYDROX/SIMETH 30 ML UNIT-DOSE CUP PO PRN (00:26)
[2020-02-17] MEDS ORDERED: MAGNESIUM HYDROX 2400MG/30ML ORAL SUSPENSION 30 ML CUP PO PRN (00:26)
[2020-02-17] MEDS ORDERED: MAGNESIUM CITRATE 300 ML BOTTLE PO PRN (00:26)
[2020-02-17] MEDS ORDERED: LORazepam 1 MG TABLET PO PRN (00:26)
--- OUTSIDE RECORDS SUMMARY | 2020-02-17 01:07 | XMS ---
:1950 Author Organization [facility] Care Team Providers Name Role Phone CHELE [...] is protected by Article 27-F of the [place] State Public Health law. If you continue you may haveaccess to information: Regarding HIV / AIDS; Provided by facilities licensed or operated by the [facility] Office of Mental Health; or Provided by the [facility] Office for People With Developmental Disabilities. If such information is present, then the following [facility] mandated warning applies: This information has been [...] law may result in a fine or correction sentence or both. A general authorization for the release of medical or other information is NOT sufficient authorization for further disclosure. Encounters Encounter Providers Location Date Indications Data Source(s ) Outpatient STV 02/06/2020 12:21:00 [facility] PM EDT - 02/06/2020 03:37:00 PM EDT Patient discharged. Emergency Attender: ED STAFF H 08/20/2019 07:13:00 PM [facility] PHYSICIANAttender: ED STAFF EDT - 08/20/2019 [facility] PHYSICIANAttender: STAFF ED 09:29:00 PM EDT STAFF PHYSICIANAdmitter: ED STAFF PHYSICIAN Patient discharged. Emergency Attender: JESUS Miranda 08/20/2019 05:07:00 AM [facility] Stephanie: STAFF ED STAFF EDT - 08/20/2019 [facility] PHYSICIANAdmitter: JESUS 10:05:00 AM EDT ALFONSO Urban Patient discharged. Emergency Attender: JESUS Miranda 08/17/2019 11:51:00 PM [facility] Stephanie: STAFF ED STAFF EDT - 08/18/2019 [facility] PHYSICIANAdmitter: JESUS 04:26:00 AM EDT ALFONSO Garcia: STAFF ED STAFF PHYSICIAN Patient discharged. Emergency Attender: ED STAFF H 05/19/2019 01:33:00 AM [facility] PHYSICIANAttender: STAFF ED EST - 05/19/2019 [facility] STAFF PHYSICIANAdmitter: ED 05:14:00 AM EST STAFF PHYSICIAN Patient discharged. Emergency Attender: STAFF ED STAFF H 04/03/2019 01:11:00 AM [facility] PHYSICIAN EST - 04/03/2019 05:15:00 Center AM EST Patient discharged. Inpatient Attender: CHELE JACKSON H-HAL5 01/31/2019 09:00:00 A M [facility] MAHERAdmitter: CHELE EDT - 02/03/2019 [facility] RENETTA BARAHONAeferrer: 08:50:00 AM EDT CHELE ELAINE Patient discharged. Insurance Providers Payer name Policy type Policy ID Covered Covered constitution party's Policy P yanick / Coverage constitution party ID relationship to Jama Inf ormation type jama [employer] MEDICAID [id number] SP [id number] [address]AN [facility] MEDICAID [id number] SP [id number] COMM PLAN MEDICAID [id number] SP [id number] SELF PAY SP INSURANCE PEND. ([facility]) HMO MEDICAID W [id number] 01 [id number] [facility] OP O HMO MEDICAID W [id number] 01 [id number] 31 [facility] OP W [id number] HMO MEDICAID W [id number] 31 [facility] IP DRG [employer] MEDICAID [id number] SP [id number] COMM PLAN W [id number] Problems, Conditions, and Diagnoses Code Display Name Description Problem Type Effective Data Dates Source(s) F17.210 Nicotine dependence, NICOTINE Diagnosis 08/20/2019 Radhika Cruz cigarettes, DEPENDENCE, 07:13:00 PM Medical uncomplicated CIGARETTES, EDT Center UNCOMPLICATED I10 Essential (primary) ESSENTIAL Diagnosis 08/20/2019 [facility] hypertension (PRIMARY) 07:13:00 PM Medical HYPERTENSION EDT Center R50.9 Fever, unspecified FEVER, UNSPECIFIED Diagnosis 0 [place] 07:13:00 PM Medical EDT Center J06.9 Acute upper ACUTE UPPER Diagnosis 08/20/2019 [place] respiratory RESPIRATORY 07:13:00 PM Medical infection, INFECTION, EDT Center unspecified UNSPECIFIED R05 Cough COUGH Diagnosis 08/20/2019 [place] 07:13:00 PM Medical EDT Center Z20.828 Contact with and CONTACT W AND Diagnosis 08/20/2019 [facility] (suspected) exposure EXPOSURE TO OTH 05:07:00 A M Medical to other viral VIRAL COMMUNICABLE EDT Ce nter communicable DISEASES diseases B34.9 Viral infection, VIRAL INFECTION, Diagnosis 08/20/2019 int [facility] unspecified UNSPECIFIED 05:07:00 AM Medical EDT Center R52 Pain, unspecified PAIN, UNSPECIFIED Diagnosis 08/20/2019 [facility] 05:07:00 AM Medical EDT Center Z72.0 Tobacco use TOBACCO USE Diagnosis 05/19/2019 [place] 01:33:00 AM Medical EST Center R07.89 [...] findings I25.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 02/03/2019 [facility] heart disease of DISEASE OF [place] 08:50:00 AM Medical [place] coronary CORONARY ARTERY EDT Cent er artery [...] EDT Center Results ID Date Data Source [id number] 02/03/2020 01:10:00 PM EDT [facility] Name Value Range Interpretation Description Data Sup porting Code Source(s) Document(s ) SARS [facility] coronavirus 2 RNA This lab was ordered by [facility] and reported by [facility]. ID Date Data Source [id number] 12/29/2019 12:40:00 PM EDT [facility] Name Value Range Interpretation Description Data Sup porting Code Source(s) Document(s ) SARS [facility] coronavirus 2 RNA This lab was ordered by [facility] and reported by [facility]. ID Date Data Source [id number] 11/17/2019 11:40:00 AM EDT [facility] Name Value Range Interpretation Description Data Sup porting Code Source(s) Document(s ) SARS [facility] coronavirus 2 RNA This lab was ordered by [facility] and reported by [facility]. ID Date Data Source Urinalysis.[id number] 08/20/2019 08:32:00 AM EDT [facility] 0 Name Value Range Interpretation Description [...] by Test d">Urine Medical strip Specific [place] </content><= 1.005 L<content styleCode="Eliza lics"> (1.015-1.025 )</content> [...] lics"> (NEGATIVE )</content> ID Date Data Source Microbiology.[id number] 08/20/2019 08:32:00 AM [facility] Name Value Range Interpretation Code Description Data Ofelia rce(s) Supporting Document(s ) UNK <item><content [facility] styleCode="Bold"> Medical [facility] er Culture Status </content>
<t able><tbody><tr>< td>Specimen Number:</td><td>[id number]</td></tr ><tr><td>Sample Collection Date/Time: </td><td> 0 8:32 AM</td></tr><tr>< td>Specimen Source:</td><td>U RINE</td></tr><tr ><td>Culture Status:</td><td>P reliminary </td></tr><tr><td >Culture Report:</td><td>C ulture in progress </td></tr><tr><td >Urine Culture:</td><td> Collection Plate Date: 08/20/2019 08:38 </td></tr></tbody ></table></item> UNK <item><content [facility] styleCode="Bold"> Medical [facility] er Culture Report </content>
<t able><tbody><tr>< td>Specimen Number:</td><td>[id number]</td></tr ><tr><td>Sample Collection Date/Time: </td><td> 0 8:32 AM</td></tr><tr>< td>Specimen Source:</td><td>U RINE</td></tr><tr ><td>Urine Culture:</td><td> Collection Plate Date: 08/20/2019 08:38 </td></tr><tr><td >Culture Status:</td><td>P reliminary </td></tr><tr><td >Culture Report:</td><td>C ulture in progress </td></tr></tbody ></table></item> ID Date Data Source Liver 08/20/2019 06:17:00 AM EDT [facility] Profile.[id number] Name Value Range Interpretation Description Data Sup [...] s"> (0.2-1.3 MG/DL)</content> ID Date Data Source CHMROUTINECCDA.[id number] 08/20/2019 06:17:00 AM EDT [facility] -0400 Name Value Range Interpretation Description Data Sup porting Code Source(s) Document(s ) Lipase 23-300 <content [facility] [Enzymatic styleCode="Bold Medical activity/vo ">Lipase Center lume] in </content>161 Serum or IU/L<content Plasma styleCode="Ital ics"> (23-300 IU/L)</content> ID Date Data Source [facility].[id number] 08/20/2019 06:17:00 AM EDT [facility] Name Value Range Interpretation Description Data [...] IU/L)</content> Alkaline 38-126 <content [facility] phosphatase styleCode="Bold"> [facility] [Enzymatic Alkaline Medical activity/volume] Phosphatase (ALP) Mandye r in Serum or Plasma </content>79 IU/L<content styleCode="Italic s"> (38-126 IU/L)</content> ID Date Data Source [id number] 08/20/2019 06:15:00 AM EDT [facility] Name Value Range Interpretation Code Description Data Ofelia rce(s) Supporting Document(s ) COV2 [facility] This lab was ordered by [facility] and reported by [facility]. ID Date Data Source Microbiology.[id number] 08/20/2019 06:10:00 AM EDT [facility] 400 Name Value Range Interpretation Code Description Data Ofelia rce(s) Supporting Document(s ) UNK <item><content [facility] styleCode="Bold"> Medical Cent er Culture Status </content>
<t able><tbody><tr>< td>Specimen Number:</td><td>[id number]</td></tr ><tr><td>Sample Collection Date/Time: </td><td> 0 6:10 AM</td></tr><tr>< td>Specimen Source:</td><td>B LOOD</td></tr><tr ><td>Blood Culture:</td><td> Collection Plate Date: 08/20/2019 06:16 </td></tr><tr><td >Culture Report:</td><td>C ulture in progress </td></tr><tr><td >Culture Status:</td><td>P reliminary </td></tr></tbody ></table></item> UNK <item><content [facility] styleCode="Bold"> Medical Cent er Culture Report </content>
<t able><tbody><tr>< td>Specimen Number:</td><td>[id number]</td></tr ><tr><td>Sample Collection Date/Time: </td><td> 0 6:10 AM</td></tr><tr>< td>Specimen Source:</td><td>B LOOD</td></tr><tr ><td>Blood Culture:</td><td> Collection Plate Date: 08/20/2019 06:16 </td></tr><tr><td >Culture Status:</td><td>P reliminary </td></tr><tr><td >Culture Report:</td><td>C ulture in progress </td></tr></tbody ></table></item> ID Date Data Source MROUTINECC.[id number] 08/20/2019 06:08:00 AM EDT [facility] -0400 Name Value Range Interpretation Description Data Sup porting Code Source(s) Document(s ) Lactate 0.7-2.0 <content [facility] [Mass/volum styleCode="Bold Medical e] in Serum ">Lactic Acid Center or Plasma </content>1.0 MMOLL<content styleCode="Ital ics"> (0.7-2.0 MMOLL)</content > ID Date Data Source Microbiology.[id number] 08/20/2019 05:50:00 AM EDT [facility] 400 Name Value Range Interpretation Code Description Data Ofelia rce(s) Supporting Document(s ) UNK <item><content [facility] styleCode="Bold"> Medical Cent er Culture Status </content>
<t able><tbody><tr>< td>Specimen Number:</td><td>[id number]</td></tr ><tr><td>Sample Collection Date/Time: </td><td> 0 5:50 AM</td></tr><tr>< td>Specimen Source:</td><td>B LOOD</td></tr><tr ><td>Culture Report:</td><td>C ulture in progress </td></tr><tr><td >Culture Status:</td><td>P reliminary </td></tr><tr><td >Blood Culture:</td><td> Collection Plate Date: 08/20/2019 06:17 </td></tr></tbody ></table></item> UNK <item><content [facility] styleCode="Bold"> Medical [facility] Culture Report </content>
<t able><tbody><tr>< td>Specimen Number:</td><td>[id number]</td></tr ><tr><td>Sample Collection Date/Time: </td><td> 0 5:50 AM</td></tr><tr>< td>Specimen Source:</td><td>B LOOD</td></tr><tr ><td>Blood Culture:</td><td> Collection Plate Date: 08/20/2019 06:17 </td></tr><tr><td >Culture Status:</td><td>P reliminary </td></tr><tr><td >Culture Report:</td><td>C ulture in progress </td></tr></tbody ></table></item> ID Date Data Source HematologyRou.[id number] 08/20/2019 05:50:00 AM EDT [facility] 0400 Name Value Range Interpretation Description Data Sup porting Code Source(s) Document(s ) Erythrocytes 4.4-5.9 <content Saint [#/volume] in styleCode="Bold [facility] Blood by ">Red Blood Medical Automated count [...] (< 1 %)</content> ID Date Data Source GFR(Creatinine).[id number] 08/20/2019 05:50:00 AM EDT [facility] 0-0400 Name Value Range Interpretation Code Description Data Ofelia rce(s) Supporting Document(s ) UNK > 60 <content [facility] styleCode="Bold"> Medical Cent er EGFR </content>64 GFR<content styleCode="Italic s"> (> 60 GFR)</content> ID Date Data Source Coagulation 08/20/2019 05:50:00 AM [facility] Center Rout.[id number] EDT Name Value Range Interpretation Description Data [...] normal <content Saint Platelet poor 5 styleCode="Bold" [place] plasma by >Partial Medical Coagulation Thromboplastin Center assay Time </content>22.8 SEC L<content styleCode="Itali cs"> (25.1-36.5 SEC)</content> ID Date Data Source BMP.[id number] 08/20/2019 05:50:00 AM EDT [facility] Name Value Range Interpretation Description Data [...] Below low normal <content Saint [Moles/volume] styleCode="Rodney Nathony in Serum or d">Sodium Medical Plasma </content>133 [...] (8.4-10.2 MG/DL)</conten t> ID Date Data Source Urinalysis.[id number] 05/19/2019 02:05:00 AM [facility] 0 Name Value Range Interpretation Description [...] by Test d">Urine Medical strip Specific [place] </content>1.01 0 L<content styleCode="Eliza lics"> (1.015-1.025 )</content> [...] lics"> (NEGATIVE )</content> ID Date Data Source HematologyRou.[id number] 05/19/2019 02:05:00 AM [facility] 0500 Name Value Range Interpretation Description [...] Hematocrit 41.0-53. <content Saint [Volume 0 styleCode="Bold [facility] Fraction] of ">Hematocrit Medical Blood by </content>41.2 [...] ics"> (11.5-14.5 %)</content> ID Date Data Source GFR(Creatinine).[id number] 05/19/2019 02:05:00 AM EST [facility] 0-0500 Name Value Range Interpretation Code Description Data Ofelia rce(s) Supporting Document(s ) UNK > 60 <content [facility] styleCode="Bold"> Medical Cent er EGFR </content>77 GFR<content styleCode="Italic s"> (> 60 GFR)</content> ID Date Data Source GIOOUTINECCDA.[id number] 05/19/2019 02:05:00 AM [facility] -0500 Name Value Range Interpretation Description Data Sup porting Code Source(s) Document(s ) Cannabinoids <content Saint [Presence] in styleCode="Rodney Newtons Urine by Screen d">Cannabinoid Medical method >50 ng/mL s Center </content>NEGA TIVE NG/ML (Reference Range: not available)<br/ > ID Date Data Source CardiacMarkers.[id number] 05/19/2019 02:05:00 AM [facility] -0500 Name Value Range Interpretation Description Data Sup porting Code Source(s) Document(s ) Troponin < 0.034 <content Saint I.cardiac styleCode="Bold [facility] [Mass/volume ">Troponin I Medical ] in Serum </content>< Center or Plasma 0.012 NG/ML<content styleCode="Ital ics"> (< 0.034 NG/ML)</content > ID Date Data Source BMP.[id number] 05/19/2019 02:05:00 AM EST [facility] Name Value Range Interpretation Description Data Sup [...] Data Source Liver 04/03/2019 02:00:00 AM EST [facility] Profile.[id number] Name Value Range Interpretation Description Data Sup [...] s"> (38-126 IU/L)</content> ID Date Data Source HematologyRou.[id number] 04/03/2019 02:00:00 AM [facility] 0500 Name Value Range Interpretation Description Data Sup porting Code Source(s) Document(s ) Leukocytes 4.4-11.0 <content Saint [#/volume] in styleCode="Bold [facility] Blood by ">White Blood Medical Automated count [...] ics"> (0 /100)</content> ID Date Data Source GFR(Creatinine).[id number] 04/03/2019 02:00:00 AM [facility] 0-0500 Name Value Range Interpretation Code Description Data Ofelia rce(s) Supporting Document(s ) UNK > 60 <content [facility] styleCode="Bold"> Medical Cent er EGFR </content>86 GFR<content styleCode="Italic s"> (> 60 GFR)</content> ID Date Data Source BMP.[id number] 04/03/2019 02:00:00 AM [facility] Name Value Range Interpretation Description Data [...] Data Source Liver 01/31/2019 10:54:00 AM EDT [facility] Profile.[id number] Name Value Range Interpretation Description Data Sup [...] (3.5-5.0 G/DL)</content> UNK 0.0-0.3 <content Saint styleCode="Bold"> [facility] Bilirubin, Direct Medical </content>< 0.2 Center MG/DL<content styleCode="Italic s"> (0.0-0.3 MG/DL)</content> Bilirubin.total 0.2-1.3 <content [facility] [Mass/volume] in styleCode="Bold"> [place] hs Serum or Plasma Bilirubin Total Medical </content>0.6 Center MG/DL<content styleCode="Italic s"> (0.2-1.3 MG/DL)</content> ID Date Data Source HematologyRou.[id number] 01/31/2019 10:54:00 AM EDT [facility] 0400 Name Value Range Interpretation Description Data Sup porting Code Source(s) Document(s ) Erythrocytes 4.4-5.9 <content Saint [#/volume] in styleCode="Bold [facility] Blood by ">Red Blood Medical Automated count Cell Count Center </content>5.14 MCUMM<content styleCode="Ital ics"> (4.4-5.9 MCUMM)</content > Leukocytes 4.4-11.0 <content [facility] [#/volume] in styleCode="Bold [facility] Blood by ">White Blood Medical Automated count Cell Count Center </content>4.80 KCUMM<content styleCode="Ital ics"> (4.4-11.0 KCUMM)</content > Erythrocyte mean 26.0-34. <content Saint corpuscular 0 styleCode="Bold [facility] hemoglobin ">Mean Medical [Entitic mass] Corposcular Center [...] (0.0 KCUMM)</content > ID Date Data Source GFR(Creatinine).[id number] 01/31/2019 10:54:00 AM EDT [facility] 0-0400 Name Value Range Interpretation Code Description Data Ofelia rce(s) Supporting Document(s ) UNK > 60 <content [facility] styleCode="Bold"> Medical Cent er EGFR </content>86 GFR<content styleCode="Italic s"> (> 60 GFR)</content> ID Date Data Source [facility].[id number] 01/31/2019 10:54:00 AM EDT [facility] Name Value Range Interpretation Description Data Sup porting Code Source(s) Document(s ) Sodium 137-145 <content [facility] [Moles/volume] in styleCode="Bold"> [facility] Serum or Plasma Sodium Medical </content>143 Center MEQ/L<content styleCode="Italic s"> (137-145 MEQ/L)</content> Potassium 3.5-5.3 <content [facility] [Moles/volume] in styleCode="Bold"> [facility] Serum or Plasma Potassium Medical </content>4.5 Center MEQ/L<content styleCode="Italic s"> (3.5-5.3 MEQ/L)</content> Chloride 98-107 <content [facility] [Moles/volume] in styleCode="Bold"> [facility] Serum or Plasma Chloride Medical </content>105 Center [...] s"> (3.5-5.0 G/DL)</content> ID Date Data Source Urinalysis.[id number] 01/31/2019 10:45:00 AM EDT [facility] 0 Name Value Range Interpretation Description Data Sup porting Code Source(s) Document(s ) Color of Urine YELLOW <content Saint styleCode="Rodney Newtons d">Color, Medical Urine Center </content>YELL OW <content styleCode="Eliza lics"> (YELLOW )</content> UNK CLEAR <content Saint styleCode="[facility] d">Urine Medical Clarity Center </content>PAM R <content styleCode="Eliza lics"> (CLEAR )</content> Glucose NEGATIVE <content [facility] [Mass/volume] styleCode="Rodney Cruz in Urine by d">Urine Medical Test strip Glucose Center </content>NEGA TIVE MG/DL<content styleCode="Eliza lics"> (NEGATIVE MG/DL)</conten t> Specific 1.015-1.02 <content Saint gravity of 5 styleCode="Rodney [facility] Urine by Test d">Urine Medical strip Specific [facility] [place] </content>1.02 5 <content styleCode="Eliza lics"> (1.015-1.025 )</content> [...] Medical strip Nitrite Center </content>NEGA TIVE <content styleCode="Leiza lics"> (NEGATIVE )</content> Urobilinogen 0.2-1.0 <content Saint [...] lics"> (0-3 HPF)</content> ID Date Data Source SILVESTREMROUTFLASHCCYOKO.[id number] 01/31/2019 10:45:00 AM EDT [facility] -0400 Name Value Range Interpretation Description Data Sup porting Code Source(s) Document(s ) Cannabinoids <content [facility] [Presence] in styleCode="Rodney Cruz Urine by Screen d">Cannabinoid Medical method >50 ng/mL s Center </content>NEGA TIVE NG/ML (Reference Range: not available)<br/ > Procedure Social History Code Duration Value Status Description Data Source(s ) Smoking 08/20/2019 07:45:00 Daily Smoker completed Daily Smoker S [facility] EDT Center Smoking 08/20/2019 07:35:00 Daily Smoker completed Daily Smoker S [facility] EDT Center Smoking 08/20/2019 07:17:00 Daily Smoker completed Daily Smoker S [facility] EDT Center Smoking 08/20/2019 07:02:00 Daily Smoker completed Daily Smoker S [facility] EDT Center Smoking 08/20/2019 06:42:00 Daily Smoker completed Daily Smoker S [facility] EDT Center Smoking 08/20/2019 05:42:00 Daily Smoker completed Daily Smoker S [facility] EDT Center Smoking 08/20/2019 05:22:00 Daily Smoker completed Daily Smoker S [facility] EDT Center Smoking 05/19/2019 02:37:00 Daily Smoker completed Daily Smoker S [facility] EST Center Smoking 05/19/2019 02:12:00 Daily Smoker completed Daily Smoker S [facility] EST Center Smoking 05/19/2019 01:36:00 Daily Smoker completed Daily Smoker S [facility] EST Center Smoking 04/03/2019 03:33:00 Daily Smoker completed Daily Smoker S [facility] EST Center Smoking 04/03/2019 01:30:00 Daily Smoker completed Daily Smoker S [facility] EST Center Smoking 04/03/2019 01:23:00 Daily Smoker completed Daily Smoker S [facility] EST Center Smoking 01/31/2019 06:00:00 Daily Smoker completed Daily Smoker S [facility] EDT Center Smoking 01/31/2019 12:12:00 Daily Smoker completed Daily Smoker S [facility] EDT Center Smoking 01/31/2019 10:18:00 Daily Smoker completed Daily Smoker S [facility] EDT Center Smoking 01/31/2019 09:08:00 Daily Smoker completed Daily Smoker S [facility] EDT Center Vital Signs ID Date Data Source UNK Name Value Range Interpretation Code Description Data Source(s) Body weight 86.195974 kg 86.293664 kg [facility] Body temperature 37.788900 37.477139 [facility] Respiratory rate 18 /min 18 /min [facility] Oxygen saturation 97 % 97 % [facility] by Pulse oximetry Heart rate 80 /min 80 /min [facility] Body height 177.388032 177.820221 cm [facility] Diastolic blood 80 mm[Hg] 80 mm[Hg] [facility] Systolic blood 132 mm[Hg] 132 mm[Hg] [facility] Body mass index 27.2 kg/m2 27.2 kg/m2 [facility] (BMI) [Ratio] Medical [facility] ter Body temperature 36.131727 36.975141 [facility] Respiratory rate 18 /min 18 /min [facility] Oxygen saturation 94 % 94 % [facility] by Pulse oximetry Heart rate 85 /min 85 /min [facility] Diastolic blood 57 mm[Hg] 57 mm[Hg] [facility] Systolic blood 110 mm[Hg] 110 mm[Hg] [facility] Body temperature 37.245253 37.703029 [facility] Respiratory rate 20 /min 20 /min [facility] Oxygen saturation 94 % 94 % [facility] by Pulse oximetry Heart rate 90 /min 90 /min [facility] Diastolic blood 65 mm[Hg] 65 mm[Hg] [facility] Systolic blood 106 mm[Hg] 106 mm[Hg] [facility] Body temperature 39.775220 39.613489 [facility] Respiratory rate 20 /min 20 /min [facility] Oxygen saturation 94 % 94 % [facility] Center by Pulse oximetry Heart rate 83 /min 83 /min [facility] Diastolic blood 98 mm[Hg] 98 mm[Hg] [facility] pressure Medical [place] Systolic blood 154 mm[Hg] 154 mm[Hg] [facility] Body temperature 36.154665 36.775799 [facility] Respiratory rate 16 /min 16 /min [facility] Oxygen saturation 98 % 98 % [facility] by Pulse oximetry Heart rate 82 /min 82 /min [facility] Diastolic blood 77 mm[Hg] 77 mm[Hg] [facility] Systolic blood 130 mm[Hg] 130 mm[Hg] [facility] Body temperature 36.391833 36.978159 [facility] Respiratory rate 18 /min 18 /min [facility] Oxygen saturation 99 % 99 % [facility] by Pulse oximetry Heart rate 86 /min 86 /min [facility] Diastolic blood 77 mm[Hg] 77 mm[Hg] [facility] Systolic blood 127 mm[Hg] 127 mm[Hg] [facility] Body temperature 36.894122 36.789101 [facility] Respiratory rate 17 /min 17 /min [facility] Oxygen saturation 97 % 97 % [facility] by Pulse oximetry Heart rate 105 /min 105 /min [facility] Diastolic blood 100 mm[Hg] 100 mm[Hg] [facility] Systolic blood 160 mm[Hg] 160 mm[Hg] [facility] Body temperature 36.118762 36.074788 [facility] Respiratory rate 17 /min 17 /min [facility] Oxygen saturation 98 % 98 % [facility] by Pulse oximetry Heart rate 75 /min 75 /min [facility] Diastolic blood 70 mm[Hg] 70 mm[Hg] [facility] Systolic blood 124 mm[Hg] 124 mm[Hg] [facility] Body weight 77.580536 kg 77.438554 kg [facility] Center Body temperature 36.109387 36.362799 [facility] Respiratory rate 18 /min 18 /min [facility] Oxygen saturation 97 % 97 % [facility] in Arter[facility] blood [facility] by Pulse oximetry Heart rate 86 /min 86 /min [facility] Body height 177.486117 177.973474 cm [facility] [place] Diastolic blood 75 mm[Hg] 75 mm[Hg] [facility] pressure Medical Center Systolic blood 129 mm[Hg] 129 mm[Hg] [facility] Body mass index 24.3 kg/m2 24.3 kg/m2 [facility] (BMI) [Ratio] Medical [facility] ter Body weight 85.812390 kg 85.902859 kg [facility] Center Body height 177.598086 177.064009 cm [facility] Body mass index 26.95 kg/m2 26.95 kg/m2 [facility] (BMI) [Ratio] Medical [address] Body temperature 36.098956 36.319181 [facility] Respiratory rate 18 /min 18 /min [facility] Heart rate 76 /min 76 /min [facility] Diastolic blood 68 mm[Hg] 68 mm[Hg] [facility] Systolic blood 110 mm[Hg] 110 mm[Hg] [facility] Body temperature 36.958978 36.520409 [facility] Respiratory rate 18 /min 18 /min [facility] Heart rate 76 /min 76 /min [facility] Diastolic blood 70 mm[Hg] 70 mm[Hg] [facility] Systolic blood 125 mm[Hg] 125 mm[Hg] [facility] Body weight 85.107115 kg 85.150799 kg [facility] Body height 177.359081 177.108930 cm [facility] Body mass index 26.95 kg/m2 26.95 kg/m2 [facility] (BMI) [Ratio] Medical [facility] ter Body temperature 36.149181 36.816965 [facility] Respiratory rate 18 /min 18 /min [facility] Heart rate 79 /min 79 /min [facility] Diastolic blood 59 mm[Hg] 59 mm[Hg] [facility] Systolic blood 120 mm[Hg] 120 mm[Hg] [facility] Body temperature 36.692729 36.922097 [facility] Respiratory rate 18 /min 18 /min [facility] Heart rate 75 /min 75 /min [facility] Diastolic blood 74 mm[Hg] 74 mm[Hg] [facility] Systolic blood 106 mm[Hg] 106 mm[Hg] [facility] Body temperature 36.953460 36.491421 [facility] Respiratory rate 20 /min 20 /min [facility] Heart rate 76 /min 76 /min [facility] Diastolic blood 60 mm[Hg] 60 mm[Hg] [facility] Systolic blood 120 mm[Hg] 120 mm[Hg] [facility] Body weight 85.361312 kg 85.141284 kg [facility] Center Body height 177.920574 177.051694 cm [facility] Body mass index 26.95 kg/m2 26.95 kg/m2 [facility] (BMI) [Ratio] Medical [facility] ter Body weight 85.544239 kg 85.048951 kg [facility] Center Body height 177.830952 177.363871 cm [facility] Body mass index 26.89 kg/m2 26.89 kg/m2 [facility] (BMI) [Ratio] Medical [facility] ter Body temperature 36.583608 36.953631 [facility] Respiratory rate 18 /min 18 /min [facility] Heart rate 73 /min 73 /min [facility] Diastolic blood 76 mm[Hg] 76 mm[Hg] [facility] Center Systolic blood 116 mm[Hg] 116 mm[Hg] [facility] Body weight 85.684143 kg 85.790037 kg [facility]asured [facility] Body height 177.866966 177.805374 cm [facility] Body mass index 26.89 kg/m2 26.89 kg/m2 [facility] (BMI) [Ratio] Medical [facility] ter Body temperature 35.685810 35.043894 [facility] Respiratory rate 18 /min 18 /min [facility] Heart rate 74 /min 74 /min [facility] Diastolic blood 61 mm[Hg] 61 mm[Hg] [facility] pressure Medical Center Systolic blood 126 mm[Hg] 126 mm[Hg] [facility] Body temperature 36.431219 36.710713 [facility] Respiratory rate 20 /min 20 /min [facility] Heart rate 78 /min 78 /min [facility] Diastolic blood 66 mm[Hg] 66 mm[Hg] [facility] Systolic blood 110 mm[Hg] 110 mm[Hg] [facility] Body weight 85.896702 kg 85.426992 kg [facility]asured [facility] Body height 177.107083 177.577157 cm [facility] Body mass index 26.89 kg/m2 26.89 kg/m2 [facility] (BMI) [Ratio] Medical [facility] ter Body weight 85.721123 kg 85.265399 kg [facility] Body temperature 36.511101 36.872367 [facility] Respiratory rate 20 /min 20 /min [facility] Heart rate 72 /min 72 /min [facility] Body height 177.620086 177.111109 cm [facility] Diastolic blood 87 mm[Hg] 87 mm[Hg] [facility] Center Systolic blood 134 mm[Hg] 134 mm[Hg] [facility] Body mass index 26.89 kg/m2 26.89 kg/m2 [facility] (BMI) [Ratio] Medical [facility] ter Oxygen saturation 97 % 97 % [facility] in Arterial blood [facility] by Pulse oximetry Body temperature 36.400700 36.870620 [facility] Respiratory rate 18 /min 18 /min [facility] Heart rate 68 /min 68 /min [facility] Diastolic blood 82 mm[Hg] 82 mm[Hg] [facility] Systolic blood 131 mm[Hg] 131 mm[Hg] [facility] pressure [facility] Center Oxygen saturation 98 % 98 % [facility] in Ar[facility] blood [facility] by Pulse oximetry
[2020-02-17] MEDS ORDERED: LORazepam 2 MG TABLET PO SCH (05:00)
[2020-02-17] MEDS: LORazepam 1 MG TABLET PO SCH ×4 (06:23→22:29)
[2020-02-17] MEDS: PRENATAL VITAMINS W/ FOLIC ACID TABLET (FP) PO SCH (10:48)
[2020-02-17] MEDS: NICOTINE 21 MG/24 HOURS TOPICAL PATCH TD SCH (10:48)
--- NOTE | 2020-02-17 13:19 | CONSULT ---
[facility] Psychiatric Consult - Data Date of interview: 02/17/20 Admission source: [facility] Identifying data: Patient is a 69 year old black male, father of one, unemployed, homeless, and is supported with welfare. This is one of multiple admissions for patient. Patient admitted to for alcohol dependence. Substance Abuse History: - Smoking Cessation. Smoking history: Current every day smoker. Have you smoked in the past 12 months: Yes. Aproximately how many cigarettes per day: 40. Cigars Per Day: 0. Hx Chewing Tobacco Use: No. Initiated information on smoking cessation: Yes. 'Breaking Loose' booklet given: 02/17/20. - Substance & Tx. History. Hx Alcohol Use: Yes. Hx Substance Use: Yes. Substance Use Type: Alcohol. Hx Substance Use Treatment: Yes ([facility]). - Substances abused. Alcohol. Other (specify): BEER. Substance route: Oral. Frequency: Daily. Amount used: 2-3 -6 PACKS. Age of first use: 16. Date of last use: 02/16/20 Medical History: [place] associated with cocaine use, last was one year ago Psychiatric History: Patient denies history of psychiatric hospitalizations, outpatient psychiatric care, and suicide attempt. Physical/Sexual Abuse/Trauma History: denies. Mental Status Exam - Mental Status Exam Alert and Oriented to: Time, Place, Person Cognitive Function: Good Patient Appearance: Disheveled Mood: Withdrawn Affect: Mood Congruent Patient Behavior: Fatigued, Cooperative Speech Pattern: Slurred (Patient presents as fatigue.) Voice Loudness: Normal Thought Process: Goal Oriented Thought Disorder: Not Present Hallucinations: Denies Suicidal Ideation: Denies Homicidal Ideation: Denies Insight/Judgement: Poor Sleep: Fair Appetite: Fair Muscle strength/Tone: Normal Gait/Station: Normal Psychiatric Findings - Problem List ([place] 1, 2,3) (1) Alcohol dependence with uncomplicated withdrawal Current Visit: Yes Status: Acute (2) Substance induced mood disorder Current Visit: Yes Status: Acute (3) Cocaine dependence, uncomplicated Current Visit: Yes Status: Chronic - Initial Treatment Plan Initial Treatment Plan: Psychoeducation provided. Detoxification in progress. Observation.
--- NOTE | 2020-02-17 14:43 | PN ---
S CIWA - CIWA Score Nausea/Vomitin-Mild Nausea/No Vomiting Muscle Tremors: 3 Anxiety: 3 Agitation: 2 Paroxysmal Sweats: 1-Minimal Palms Moist Orientation: 0-Oriented Tacttile Disturbances: 0-None Auditory Disturbances: 0-None Visual Disturbances: 1-Very Mild Sensitivity Headache: 1-Very Mild CIWA-Ar Total Score: 12 S Progress Note (SOAP) Subjective: 69 years old male was admitted on 02/17/20 for alcohol withdrawal sx management treating with ativan detox regiment feels tired "came up here late" ate small amount of meals resting in bed limited conversation with staff Objective: 02/17/20 14:45 Vital Signs - 24 hr 02/16/20 02/17/20 02/17/20 23:12 01:32 06:28 Temperature 98.3 F 97.5 F L 97.3 F L Pulse Rate 83 76 69 Respiratory 18 18 18 Rate Blood Pressure 106/52 L 151/86 122/69 O2 Sat by Pulse 97 95 Oximetry (%) 02/17/20 09:10 Temperature 96.9 F L Pulse Rate 68 Respiratory 18 Rate Blood Pressure 125/77 O2 Sat by Pulse Oximetry (%) Assessment: 02/17/20 14:49 alcohol withdrawal Plan: ativan regiment
[2020-02-17] MEDS: THIAMINE HCL 100 MG TABLET (FP) PO SCH (22:28)
[2020-02-17] MEDS: MELATONIN 5 MG TABLETS PO SCH (22:28)
[2020-02-18] MEDS ORDERED: LORazepam 1 MG TABLET PO SCH (05:00)
[2020-02-18] MEDS: LORazepam 0.5 MG TABLET PO SCH ×4 (07:41→22:37)
[2020-02-18] MEDS: PRENATAL VITAMINS W/ FOLIC ACID TABLET (FP) PO SCH (10:09)
[2020-02-18] MEDS: NICOTINE 21 MG/24 HOURS TOPICAL PATCH TD SCH (10:10)
--- NOTE | 2020-02-18 13:55 | PN ---
S CIWA - CIWA Score Nausea/Vomitin-Mild Nausea/No Vomiting Muscle Tremors: 2 Anxiety: 2 Agitation: 0-Normal Activity Paroxysmal Sweats: No Perspiration Orientation: 0-Oriented Tacttile Disturbances: 1-Very Mild Itch/Numbness Auditory Disturbances: 0-None Visual Disturbances: 2-Mild Sensitivity Headache: 2-Mild CIWA-Ar Total Score: 10 [facility] Progress Note (SOAP) Subjective: 69 years old male was admitted on 02/17/20 for alcohol withdrawal sx management treating with ativan detox regiment feels ok today but tired and prefers to resting in bed limited conversation with staff Objective: 02/18/20 14:03 Vital Signs - 24 hr 02/17/20 02/17/20 02/18/20 16:47 20:54 06:27 Temperature 98.1 F 97.5 F L 97.3 F L Pulse Rate 75 81 64 Respiratory 18 16 18 Rate Blood Pressure 135/80 131/77 121/77 O2 Sat by Pulse 96 95 Oximetry (%) 02/18/20 02/18/20 08:58 12:39 Temperature 98.0 F 98.6 F Pulse Rate 81 75 Respiratory 18 18 Rate Blood Pressure 118/67 122/70 O2 Sat by Pulse 99 Oximetry (%) 02/18/20 14:07 lab see 10 days ago 6N admission Assessment: 02/18/20 14:08 alcohol withdrawal Plan: ativan regiment
[2020-02-18] MEDS: MELATONIN 5 MG TABLETS PO SCH (22:37)
[2020-02-18] MEDS: THIAMINE HCL 100 MG TABLET (FP) PO SCH (22:37)
[2020-02-19] MEDS ORDERED: LORazepam 0.5 MG TABLET PO PRN
[2020-02-19] MEDS: LORazepam 0.5 MG TABLET PO SCH ×4 (06:31→22:48)
[2020-02-19] MEDS: PRENATAL VITAMINS W/ FOLIC ACID TABLET (FP) PO SCH (10:21)
[2020-02-19] MEDS: NICOTINE 21 MG/24 HOURS TOPICAL PATCH TD SCH (10:23)
--- NOTE | 2020-02-19 10:56 | PN ---
[facility] CIWA - CIWA Score Nausea/Vomitin-No Nausea/No Vomiting Muscle Tremors: None Anxiety: 2 Agitation: 0-Normal Activity Paroxysmal Sweats: 2 Orientation: 0-Oriented Tacttile Disturbances: 0-None Auditory Disturbances: 0-None Visual Disturbances: 0-None Headache: 1-Very Mild CIWA-Ar Total Score: 5 [facility] Progress Note (SOAP) Subjective: c/o mild withdrawal symptoms. Objective: 02/19/20 10:52 Vital Signs 02/19/20 02/19/20 06:14 08:34 Temperature 97.9 F 97.3 F L Pulse Rate 62 84 Respiratory 18 18 Rate Blood Pressure 115/68 101/66 O2 Sat by Pulse 98 Oximetry (%) Laboratory Last Values COVID-19 ([facility]) Not detected (Not Detected) 02/17/20 01:35 02/19/20 10:52 Assessment: 02/19/20 10:52 AOX3, in no acute respiratory distress. Full ROM, ambulating in the unit. Mild Withdrawal symptoms. For d/c tomorrow. Plan: continue detox. D/C in AM.
[2020-02-19 17:29] VITALS: TEMP 97.5
[2020-02-19 21:17] VITALS: BP 122/76; PULSE 76
[2020-02-19] MEDS: MELATONIN 5 MG TABLETS PO SCH (22:48)
[2020-02-19] MEDS: THIAMINE HCL 100 MG TABLET (FP) PO SCH (22:48)
[2020-02-20] MEDS ORDERED: LORazepam 0.5 MG TABLET PO ONE (05:00)
--- NOTE | 2020-02-20 09:45 | DS ---
[facility] Detox Discharge Summary Admission Date: 02/17/20 Discharge Date: 02/20/20 - History Present History: Alcohol Dependence Additional Comments: HERE FOR ALCOHOL DETOX. CLIENT IS SELF REFERRED. KNOWN TO PROGRAM. DC 10 DAYS AGO . CLIENT REPORTS IMMEDIATELY RELAPSING AFTER DC. DRINK 2 SIX PACKS DAILY. LAST USE THIS MORNING. DENIES ANY SIGNIFICANT PERIOD OF CLEAN TIME IN THE PAST 12 MONTHS. + HX/O BLACK OUTS, MOST RECENT 2 DAYS AGO. DENIES HX/O SZ. LIVES ALONE, UNEMPLOYED, DENIES LEGALS. PE Gnl: WDWN, in no disress MS: agitated "everyone is calling my name" Motor: moves limbs well Gait: steady Laboratory Tests 02/17/20 01:35 COVID-19 ([facility]) Not detected Home Medication List Medication Instructions Recorded Confirmed Type NK [No Known Home Medication] 02/21/17 02/17/20 History Active Medications Generic Name Dose Route Start Last Admin Trade Name Lowellq PRN Reason Stop Dose Admin Acetaminophen 650 mg 02/17/20 00:26 Tylenol - PO Q6H PRN PAIN LEVEL 4 - 6 Acetaminophen 650 mg 02/17/20 00:26 Tylenol - PO Q6H PRN FEVER Al Hydroxide/Mg Hydroxide 30 ml 02/17/20 00:26 Mylanta Oral Suspension - PO Q6H PRN DYSPEPSIA Bismuth Subsalicylate 524 mg 02/17/20 00:26 Pepto-Bismol - PO Q1H PRN DIARRHEA Dicyclomine HCl 10 mg 02/17/20 00:26 Bentyl - PO 02/23/20 00:28 Q6H PRN Abdominal Cramping Eucalyptus/Menthol/Phenol/Sorbitol 1 each 02/17/20 00:26 Cepastat Lozenge - MM 02/23/20 00:27 Q4H PRN SORE THROAT Guaifenesin 10 ml 02/17/20 00:26 Robitussin - PO Q6H PRN COUGH Ibuprofen 400 mg 02/17/20 00:26 Motrin - PO Q6H PRN PAIN LEVEL 1 - 3 Magnesium Citrate 300 ml 02/17/20 00:26 Citroma - PO Q48H PRN CONSTIPATION Magnesium Hydroxide 30 ml 02/17/20 00:26 Milk Of Magnesia - PO PRN PRN CONSTIPATION Melatonin 5 mg 02/17/20 22:00 02/19/20 22:48 Melatonin PO Not Given HS MIGUEL Methocarbamol 500 mg 02/17/20 00:26 02/17/20 22:28 Robaxin - PO 02/23/20 00:27 500 mg Q6H PRN Administration MUSCLE SPASMS Nicotine 21 mg 02/17/20 10:00 02/19/20 10:23 Nicoderm Patch - TD Not Given DAILY MIGUEL Nicotine Polacrilex 4 mg 02/17/20 00:26 Nicorette Gum - BUC Q2H PRN NICOTINE REPLACEMENT RX Ondansetron HCl 4 mg 02/17/20 00:26 Zofran Odt - SL Q8H PRN Nausea/Vomiting Multivit/Folic Acid/Iron 1 tab 02/17/20 10:00 02/19/20 10:21 Vitamins (Sjr) - PO 1 tab DAILY MIGUEL Administration Pseudoephedrine/Triprolidine 1 combo 02/17/20 00:26 Actifed - PO Q6H PRN NASAL CONGESTION Thiamine HCl 100 mg 02/17/20 22:00 02/19/20 22:48 Vitamin B1 - PO Not Given HS MIGUEL 1. Alcohol withdrawal uncomplicated Plan 1. Discharge today s/p Ativan detox protocol - Physical Exam Results Vital Signs: Vital Signs Temperature 97.5 F L 02/19/20 20:01 Pulse Rate 76 02/19/20 20:01 Respiratory Rate 18 02/19/20 20:01 Blood Pressure 122/76 02/19/20 20:01 O2 Sat by Pulse Oximetry (%) 96 02/19/20 20:01 - Medication Discharge Medications: Ambulatory Orders NK [No Known Home Medication] 02/21/17
== END 2020-02-20 09:45 | disposition home or self-care (01) | DRG 774 ==
LOC: YASAS 20:37 → Y3N 02-17 01:03
PROVIDERS: ADMIT Allergy & Immunology; ATTEND Allergy & Immunology
PROC: HZ2ZZZZ Detoxification Services for Substance Abuse Treatment (ICD-10-PCS; principal; 2020-02-17)
DX: F10.230 Alcohol dependence with withdrawal, uncomplicated (principal); F14.20 Cocaine dependence, uncomplicated; F17.210 Nicotine dependence, cigarettes, uncomplicated; F19.24 Other psychoactive substance dependence with psychoactive substance-induced mood disorder; I25.2 Old myocardial infarction; Z56.0 Unemployment, unspecified; Z59.0 Homelessness; Z87.898 Personal history of other specified conditions
CPT/HCPCS: C9803; U0003

== ENCOUNTER 2020-05-31 22:51 | Inpatient (IN) | payer OTHER ==
[2020-05-31 23:12] VITALS: BMI 25.1
[2020-05-31] MEDS ORDERED: ACETAMINOPHEN 325 MG TABLET (FP) PO PRN ×2 (23:46)
[2020-05-31] MEDS ORDERED: BISMUTH SUBSALICYLATE 524 MG/30 ML UD PO PRN (23:46)
[2020-05-31] MEDS ORDERED: NICOTINE POLACRILEX 2 MG GUM BUC PRN (23:46)
[2020-05-31] MEDS ORDERED: ONDANSETRON *ODT* 4 MG TABLET SL PRN (23:46)
[2020-05-31] MEDS ORDERED: MENTHOL/PHENOL 1 EACH UD MM PRN (23:46)
[2020-05-31] MEDS ORDERED: MAGNESIUM HYDROX 2400MG/30ML ORAL SUSPENSION 30 ML CUP PO PRN (23:46)
[2020-05-31] MEDS ORDERED: MAG HYDROX/AL HYDROX/SIMETH 30 ML UNIT-DOSE CUP PO PRN (23:46)
[2020-05-31] MEDS ORDERED: MAGNESIUM CITRATE 300 ML BOTTLE PO PRN (23:46)
[2020-06-01] MEDS ORDERED: chlordiazePOXIDE HCL 25 MG CAPSULE PO PRN (00:06)
[2020-06-01] MEDS: chlordiazePOXIDE HCL 25 MG CAPSULE PO SCH ×4 (05:54→22:26)
[2020-06-01] MEDS: NICOTINE 14 MG/24 HOURS TOPICAL PATCH TD SCH (10:50)
[2020-06-01] MEDS: PRENATAL VITAMINS W/ FOLIC ACID TABLET (FP) PO SCH (10:50)
[2020-06-01 11:34] LABS: HEMATOCRIT 37.9 % (35.4-49); HEMOGLOBIN 12.9 GM/dL (11.7-16.9); MCH 28.8 pg (25.7-33.7); MCHC 34.1 g/dl (32.0-35.9); MEAN CELL VOLUME 84.4 fl (80-96); MEAN PLT VOLUME 7.9 fl (7.5-11.1); PLATELET COUNT 215 K/MM3 (134-434); RBC 4.49 M/mm3 (4.00-5.60); RDW 14.6 % (11.9-15.9); WHITE BLOOD COUNT 4.3 K/mm3 (4.0-10.0)
[2020-06-01 11:40] LABS: POTASSIUM 3.7 mmol/L (3.5-5.1)
[2020-06-01 11:50] LABS: ALBUMIN 3.3 g/dl (3.4-5.0)
[2020-06-01 11:51] LABS: BLOOD UREA NITROGEN 15.6 mg/dL (7-18); CALCIUM 8.9 mg/dL (8.5-10.1)
[2020-06-01 11:54] LABS: CREATININE 1.1 mg/dL (0.55-1.3)
[2020-06-01 11:55] LABS: BILIRUBIN,TOTAL 0.4 mg/dL (0.2-1); TOT PROT 6.5 g/dl (6.4-8.2)
[2020-06-01] MEDS: IBUPROFEN 400 MG TABLET (FP) PO PRN ×2 (14:59→22:25)
[2020-06-01] MEDS: METHOCARBAMOL 500 MG TABLET PO PRN ×2 (14:59→22:25)
[2020-06-01] MEDS: THIAMINE HCL 100 MG TABLET (FP) PO SCH (22:23)
[2020-06-01] MEDS: MELATONIN 5 MG TABLETS PO SCH (22:24)
[2020-06-02] MEDS: chlordiazePOXIDE HCL 25 MG CAPSULE PO SCH ×4 (06:04→23:23)
[2020-06-02] MEDS: PRENATAL VITAMINS W/ FOLIC ACID TABLET (FP) PO SCH (10:24)
[2020-06-02] MEDS: METHOCARBAMOL 500 MG TABLET PO PRN ×2 (10:24→17:45)
[2020-06-02] MEDS: IBUPROFEN 400 MG TABLET (FP) PO PRN ×2 (10:25→17:45)
[2020-06-02] MEDS: NICOTINE 14 MG/24 HOURS TOPICAL PATCH TD SCH (10:26)
[2020-06-02] MEDS: THIAMINE HCL 100 MG TABLET (FP) PO SCH (23:23)
[2020-06-02] MEDS: MELATONIN 5 MG TABLETS PO SCH (23:23)
[2020-06-03] MEDS ORDERED: chlordiazePOXIDE HCL 10 MG CAPSULE PO PRN
[2020-06-03] MEDS: chlordiazePOXIDE HCL 10 MG CAPSULE PO SCH ×4 (05:59→22:26)
[2020-06-03] MEDS: IBUPROFEN 400 MG TABLET (FP) PO PRN ×3 (06:02→17:24)
[2020-06-03] MEDS: METHOCARBAMOL 500 MG TABLET PO PRN ×3 (06:02→17:24)
[2020-06-03] MEDS: NICOTINE 14 MG/24 HOURS TOPICAL PATCH TD SCH (10:22)
[2020-06-03] MEDS: PRENATAL VITAMINS W/ FOLIC ACID TABLET (FP) PO SCH (10:24)
[2020-06-03] MEDS: THIAMINE HCL 100 MG TABLET (FP) PO SCH (22:25)
[2020-06-03] MEDS: MELATONIN 5 MG TABLETS PO SCH (22:25)
[2020-06-04] MEDS: chlordiazePOXIDE HCL 10 MG CAPSULE PO SCH ×2 (06:37→17:33)
[2020-06-04] MEDS: NICOTINE 14 MG/24 HOURS TOPICAL PATCH TD SCH (09:53)
[2020-06-04] MEDS: PRENATAL VITAMINS W/ FOLIC ACID TABLET (FP) PO SCH (09:53)
[2020-06-04] MEDS: IBUPROFEN 400 MG TABLET (FP) PO PRN (17:34)
[2020-06-04] MEDS: METHOCARBAMOL 500 MG TABLET PO PRN (17:34)
[2020-06-04 21:43] VITALS: TEMP 97.5
[2020-06-04] MEDS: MELATONIN 5 MG TABLETS PO SCH (22:31)
[2020-06-04] MEDS: THIAMINE HCL 100 MG TABLET (FP) PO SCH (22:31)
[2020-06-05] MEDS ORDERED: chlordiazePOXIDE HCL 10 MG CAPSULE PO ONE (05:00)
[2020-06-05 09:58] VITALS: BP 125/82; PULSE 69
[2020-06-05] MEDS: PRENATAL VITAMINS W/ FOLIC ACID TABLET (FP) PO SCH (10:37)
[2020-06-05] MEDS: NICOTINE 14 MG/24 HOURS TOPICAL PATCH TD SCH (10:37)
== END 2020-06-05 10:07 | disposition home or self-care (01) | DRG 774 ==
LOC: YASAS 22:51 → Y3N 23:46
PROVIDERS: ADMIT Allergy & Immunology; ATTEND Allergy & Immunology
PROC: HZ2ZZZZ Detoxification Services for Substance Abuse Treatment (ICD-10-PCS; principal; 2020-05-31)
DX: F10.230 Alcohol dependence with withdrawal, uncomplicated (principal); F14.20 Cocaine dependence, uncomplicated; F17.210 Nicotine dependence, cigarettes, uncomplicated; Z56.0 Unemployment, unspecified
CPT/HCPCS: 36415; 80053; 85027; 86780; 93005; 93010; C9803; U0003

== ENCOUNTER 2020-07-01 21:37 | Inpatient (IN) | payer OTHER ==
[2020-07-01] MEDS ORDERED: MAG HYDROX/AL HYDROX/SIMETH 30 ML UNIT-DOSE CUP PO PRN (23:45)
[2020-07-01] MEDS ORDERED: BISMUTH SUBSALICYLATE 524 MG/30 ML UD PO PRN (23:45)
[2020-07-01] MEDS ORDERED: MENTHOL/PHENOL 1 EACH UD MM PRN (23:45)
[2020-07-01] MEDS ORDERED: MAGNESIUM CITRATE 300 ML BOTTLE PO PRN (23:45)
[2020-07-01] MEDS ORDERED: NICOTINE POLACRILEX 4 MG GUM BUC PRN (23:45)
[2020-07-01] MEDS ORDERED: guaiFENesin 200 MG/10 ML 10 ML UNIT-DOSE CUPS PO PRN (23:45)
[2020-07-01] MEDS ORDERED: ACETAMINOPHEN 325 MG TABLET (FP) PO PRN ×2 (23:45)
[2020-07-01] MEDS ORDERED: ONDANSETRON *ODT* 4 MG TABLET SL PRN (23:45)
[2020-07-01] MEDS ORDERED: MAGNESIUM HYDROX 2400MG/30ML ORAL SUSPENSION 30 ML CUP PO PRN (23:45)
[2020-07-01] MEDS ORDERED: DICYCLOMINE HCL 10 MG CAPSULE PO PRN (23:45)
[2020-07-01] MEDS ORDERED: LORazepam 1 MG TABLET PO PRN (23:45)
[2020-07-01] MEDS ORDERED: METHOCARBAMOL 500 MG TABLET PO PRN (23:45)
[2020-07-01] MEDS ORDERED: P-EPHED 60MG/TRIPROLIDI 2.5MG TABLET PO PRN (23:45)
[2020-07-01 23:51] VITALS: BMI 27.2
[2020-07-02] MEDS: LORazepam 2 MG TABLET PO SCH ×5 (03:34→23:09)
[2020-07-02] MEDS: PRENATAL VITAMINS W/ FOLIC ACID TABLET (FP) PO SCH (10:39)
[2020-07-02] MEDS: NICOTINE 21 MG/24 HOURS TOPICAL PATCH TD SCH (10:39)
[2020-07-02 11:55] LABS: HEMATOCRIT 39.1 % (35.4-49); HEMOGLOBIN 13.4 GM/dL (11.7-16.9); MCH 28.8 pg (25.7-33.7); MCHC 34.4 g/dl (32.0-35.9); MEAN CELL VOLUME 83.8 fl (80-96); MEAN PLT VOLUME 7.7 fl (7.5-11.1); PLATELET COUNT 239 K/MM3 (134-434); RBC 4.66 M/mm3 (4.00-5.60); RDW 15.1 % (11.9-15.9); WHITE BLOOD COUNT 4.1 K/mm3 (4.0-10.0)
[2020-07-02 12:09] LABS: POTASSIUM 3.9 mmol/L (3.5-5.1)
[2020-07-02 13:06] LABS: CALCIUM 9.5 mg/dL (8.5-10.1)
[2020-07-02 13:07] LABS: ALBUMIN 3.6 g/dl (3.4-5.0); BLOOD UREA NITROGEN 17.2 mg/dL (7-18)
[2020-07-02 13:08] LABS: CREATININE 1.1 mg/dL (0.55-1.3)
[2020-07-02 13:09] LABS: BILIRUBIN,TOTAL 0.6 mg/dL (0.2-1)
[2020-07-02 13:10] LABS: TOT PROT 7.1 g/dl (6.4-8.2)
[2020-07-02] MEDS: MELATONIN 5 MG TABLETS PO SCH (23:09)
[2020-07-02] MEDS: THIAMINE HCL 100 MG TABLET (FP) PO SCH (23:09)
[2020-07-03] MEDS: LORazepam 1 MG TABLET PO SCH ×4 (07:02→22:56)
[2020-07-03] MEDS: PRENATAL VITAMINS W/ FOLIC ACID TABLET (FP) PO SCH (10:29)
[2020-07-03] MEDS: NICOTINE 21 MG/24 HOURS TOPICAL PATCH TD SCH (10:29)
[2020-07-03] MEDS: MELATONIN 5 MG TABLETS PO SCH (22:56)
[2020-07-03] MEDS: THIAMINE HCL 100 MG TABLET (FP) PO SCH (22:56)
[2020-07-04] MEDS ORDERED: LORazepam 0.5 MG TABLET PO PRN
[2020-07-04 02:14] LABS: PH,URINE 6.5 (5.0-8.0); URINE APPEARANCE CLEAR; URINE BILIRUBIN NEGATIVE (NEGATIVE); URINE COLOR YELLOW; URINE GLUCOSE (UA) NEGATIVE (NEGATIVE); URINE KETONE NEGATIVE (NEGATIVE); URINE LEUK ESTERASE NEGATIVE (NEGATIVE); URINE NITRITE NEGATIVE (NEGATIVE); URINE PROTEIN NEGATIVE (NEGATIVE); URINE UROBILINOGEN 0.2 mg/dL (0.2-1.0)
[2020-07-04] MEDS: LORazepam 0.5 MG TABLET PO SCH ×4 (07:02→22:28)
[2020-07-04] MEDS: PRENATAL VITAMINS W/ FOLIC ACID TABLET (FP) PO SCH (10:48)
[2020-07-04] MEDS: NICOTINE 21 MG/24 HOURS TOPICAL PATCH TD SCH (10:48)
[2020-07-04] MEDS: IBUPROFEN 400 MG TABLET (FP) PO PRN ×2 (10:49→17:15)
[2020-07-04] MEDS: MELATONIN 5 MG TABLETS PO SCH (22:28)
[2020-07-04] MEDS: THIAMINE HCL 100 MG TABLET (FP) PO SCH (22:28)
[2020-07-05] MEDS ORDERED: LORazepam 0.5 MG TABLET PO ONE (05:00)
[2020-07-05] MEDS: IBUPROFEN 400 MG TABLET (FP) PO PRN (06:40)
[2020-07-05 08:16] VITALS: BP 112/69; PULSE 64; TEMP 97.3
== END 2020-07-05 09:20 | disposition home or self-care (01) | DRG 774 ==
LOC: YASAS 21:37 → Y3N 07-02 09:19
PROVIDERS: ADMIT Allergy & Immunology; ATTEND Allergy & Immunology
PROC: HZ2ZZZZ Detoxification Services for Substance Abuse Treatment (ICD-10-PCS; principal; 2020-07-02)
DX: F10.230 Alcohol dependence with withdrawal, uncomplicated (principal); F14.20 Cocaine dependence, uncomplicated; F17.210 Nicotine dependence, cigarettes, uncomplicated; F19.24 Other psychoactive substance dependence with psychoactive substance-induced mood disorder; F32.9 Major depressive disorder, single episode, unspecified; H18.413 Arcus senilis, bilateral; R63.8 Other symptoms and signs concerning food and fluid intake; Z91.81 History of falling
CPT/HCPCS: 36415; 80053; 81003; 85027; 86780; C9803; U0003

== ENCOUNTER 2020-07-22 12:46 | Inpatient (IN) | payer OTHER ==
[2020-07-22 13:42] VITALS: BMI 26.6
[2020-07-22] MEDS ORDERED: NICOTINE POLACRILEX 2 MG GUM BUC PRN (14:15)
[2020-07-22] MEDS ORDERED: MENTHOL/PHENOL 1 EACH UD MM PRN (14:15)
[2020-07-22] MEDS ORDERED: BISMUTH SUBSALICYLATE 262 MG/15 ML BTL PO PRN (14:15)
[2020-07-22] MEDS ORDERED: MAGNESIUM CITRATE 300 ML BOTTLE PO PRN (14:15)
[2020-07-22] MEDS ORDERED: chlordiazePOXIDE HCL 25 MG CAPSULE PO PRN (14:15)
[2020-07-22] MEDS ORDERED: MAGNESIUM HYDROX 2400MG/30ML ORAL SUSPENSION 30 ML CUP PO PRN (14:15)
[2020-07-22] MEDS ORDERED: MAG HYDROX/AL HYDROX/SIMETH 30 ML UNIT-DOSE CUP PO PRN (14:15)
[2020-07-22] MEDS ORDERED: ONDANSETRON *ODT* 4 MG TABLET SL PRN (14:15)
[2020-07-22] MEDS ORDERED: ACETAMINOPHEN 325 MG TABLET (FP) PO PRN ×2 (14:15)
[2020-07-22] MEDS: PRENATAL VITAMINS W/ FOLIC ACID TABLET (FP) PO SCH (15:01)
[2020-07-22] MEDS: NICOTINE 21 MG/24 HOURS TOPICAL PATCH TD SCH (15:03)
[2020-07-22 16:25] LABS: POTASSIUM 4.1 mmol/L (3.5-5.1)
[2020-07-22 16:28] LABS: HEMATOCRIT 41.9 % (35.4-49); HEMOGLOBIN 14.1 GM/dL (11.7-16.9); MCH 28.6 pg (25.7-33.7); MCHC 33.6 g/dl (32.0-35.9); MEAN CELL VOLUME 85.2 fl (80-96); MEAN PLT VOLUME 8.2 fl (7.5-11.1); PLATELET COUNT 277 K/MM3 (134-434); RBC 4.91 M/mm3 (4.00-5.60); WHITE BLOOD COUNT 4.9 K/mm3 (4.0-10.0)
[2020-07-22 16:32] LABS: BLOOD UREA NITROGEN 26.4 mg/dL (7-18); CALCIUM 9.9 mg/dL (8.5-10.1)
[2020-07-22 16:33] LABS: ALBUMIN 3.9 g/dl (3.4-5.0)
[2020-07-22 16:36] LABS: CREATININE 1.2 mg/dL (0.55-1.3)
[2020-07-22 16:37] LABS: BILIRUBIN,TOTAL 0.6 mg/dL (0.2-1); TOT PROT 7.9 g/dl (6.4-8.2)
[2020-07-22] MEDS: hydrOXYzine PAMOATE 25 MG CAPSULE (FP) PO SCH ×2 (17:40→22:35)
[2020-07-22] MEDS: chlordiazePOXIDE HCL 25 MG CAPSULE PO SCH ×2 (17:40→22:35)
[2020-07-22] MEDS: THIAMINE HCL 100 MG TABLET (FP) PO SCH (22:35)
[2020-07-22] MEDS: MELATONIN 5 MG TABLETS PO SCH (22:35)
[2020-07-23] MEDS: hydrOXYzine PAMOATE 25 MG CAPSULE (FP) PO SCH ×5 (07:03→23:05)
[2020-07-23] MEDS: chlordiazePOXIDE HCL 25 MG CAPSULE PO SCH ×4 (07:04→23:06)
[2020-07-23] MEDS: PRENATAL VITAMINS W/ FOLIC ACID TABLET (FP) PO SCH (10:49)
[2020-07-23] MEDS: NICOTINE 21 MG/24 HOURS TOPICAL PATCH TD SCH (10:49)
[2020-07-23] MEDS: MELATONIN 5 MG TABLETS PO SCH (23:05)
[2020-07-23] MEDS: THIAMINE HCL 100 MG TABLET (FP) PO SCH (23:05)
[2020-07-24] MEDS: chlordiazePOXIDE HCL 25 MG CAPSULE PO SCH ×4 (05:42→22:40)
[2020-07-24] MEDS: IBUPROFEN 400 MG TABLET (FP) PO PRN (05:43)
[2020-07-24] MEDS: hydrOXYzine PAMOATE 25 MG CAPSULE (FP) PO SCH ×5 (05:43→22:40)
[2020-07-24] MEDS: NICOTINE 21 MG/24 HOURS TOPICAL PATCH TD SCH (10:55)
[2020-07-24] MEDS: PRENATAL VITAMINS W/ FOLIC ACID TABLET (FP) PO SCH (10:55)
[2020-07-24] MEDS: THIAMINE HCL 100 MG TABLET (FP) PO SCH (22:40)
[2020-07-24] MEDS: METHOCARBAMOL 500 MG TABLET PO PRN (22:41)
[2020-07-24] MEDS: MELATONIN 5 MG TABLETS PO SCH (22:41)
[2020-07-25] MEDS ORDERED: chlordiazePOXIDE HCL 10 MG CAPSULE PO PRN
[2020-07-25] MEDS: IBUPROFEN 400 MG TABLET (FP) PO PRN ×2 (06:18→22:11)
[2020-07-25] MEDS: hydrOXYzine PAMOATE 25 MG CAPSULE (FP) PO SCH ×5 (06:18→22:12)
[2020-07-25] MEDS: chlordiazePOXIDE HCL 10 MG CAPSULE PO SCH ×4 (06:18→22:12)
[2020-07-25] MEDS: NICOTINE 21 MG/24 HOURS TOPICAL PATCH TD SCH (10:42)
[2020-07-25] MEDS: PRENATAL VITAMINS W/ FOLIC ACID TABLET (FP) PO SCH (10:42)
[2020-07-25] MEDS: MELATONIN 5 MG TABLETS PO SCH (22:11)
[2020-07-25] MEDS: METHOCARBAMOL 500 MG TABLET PO PRN (22:11)
[2020-07-25] MEDS: THIAMINE HCL 100 MG TABLET (FP) PO SCH (22:12)
[2020-07-26] MEDS: hydrOXYzine PAMOATE 25 MG CAPSULE (FP) PO SCH ×5 (06:52→22:11)
[2020-07-26] MEDS: chlordiazePOXIDE HCL 10 MG CAPSULE PO SCH ×2 (06:52→18:58)
[2020-07-26] MEDS: NICOTINE 21 MG/24 HOURS TOPICAL PATCH TD SCH (10:28)
[2020-07-26] MEDS: PRENATAL VITAMINS W/ FOLIC ACID TABLET (FP) PO SCH (10:28)
[2020-07-26] MEDS: THIAMINE HCL 100 MG TABLET (FP) PO SCH (22:11)
[2020-07-26] MEDS: MELATONIN 5 MG TABLETS PO SCH (22:11)
[2020-07-26] MEDS: IBUPROFEN 400 MG TABLET (FP) PO PRN (22:12)
[2020-07-27] MEDS ORDERED: chlordiazePOXIDE HCL 10 MG CAPSULE PO ONE (05:00)
[2020-07-27] MEDS: hydrOXYzine PAMOATE 25 MG CAPSULE (FP) PO SCH ×3 (06:27→14:46)
[2020-07-27] MEDS: NICOTINE 21 MG/24 HOURS TOPICAL PATCH TD SCH (10:30)
[2020-07-27] MEDS: PRENATAL VITAMINS W/ FOLIC ACID TABLET (FP) PO SCH (10:30)
[2020-07-27 16:46] VITALS: BP 143/82; PULSE 82; TEMP 97.3
== END 2020-07-27 17:26 | disposition other institution (70) | DRG 774 ==
LOC: YASAS 12:46 → Y6N 14:08
PROVIDERS: ADMIT Allergy & Immunology; ATTEND Allergy & Immunology
PROC: HZ2ZZZZ Detoxification Services for Substance Abuse Treatment (ICD-10-PCS; principal; 2020-07-22)
DX: F10.230 Alcohol dependence with withdrawal, uncomplicated (principal); F14.20 Cocaine dependence, uncomplicated; F17.213 Nicotine dependence, cigarettes, with withdrawal; F19.24 Other psychoactive substance dependence with psychoactive substance-induced mood disorder; M17.11 Unilateral primary osteoarthritis, right knee; R79.89 Other specified abnormal findings of blood chemistry; R73.9 Hyperglycemia, unspecified
CPT/HCPCS: 36415; 80053; 82947; 84520; 85027; 86780; C9803; U0003

== ENCOUNTER 2020-07-27 17:36 | Inpatient (IN) | payer OTHER ==
[2020-07-28] MEDS ORDERED: hydrOXYzine PAMOATE 25 MG CAPSULE (FP) PO PRN (00:31)
[2020-07-28] MEDS ORDERED: P-EPHED 60MG/TRIPROLIDI 2.5MG TABLET PO PRN (00:31)
[2020-07-28] MEDS ORDERED: MENTHOL/PHENOL 1 EACH UD MM PRN (00:31)
[2020-07-28] MEDS ORDERED: ACETAMINOPHEN 325 MG TABLET (FP) PO PRN (00:31)
[2020-07-28] MEDS ORDERED: MAGNESIUM CITRATE 300 ML BOTTLE PO PRN (00:31)
[2020-07-28] MEDS ORDERED: MAG HYDROX/AL HYDROX/SIMETH 30 ML UNIT-DOSE CUP PO PRN (00:31)
[2020-07-28] MEDS ORDERED: guaiFENesin 200 MG/10 ML 10 ML UNIT-DOSE CUPS PO PRN (00:31)
[2020-07-28] MEDS ORDERED: LOPERAMIDE HCL 2 MG CAPSULE PO PRN (00:31)
[2020-07-28] MEDS ORDERED: NICOTINE POLACRILEX 2 MG GUM BUC PRN (00:31)
[2020-07-28] MEDS ORDERED: MAGNESIUM HYDROX 2400MG/30ML ORAL SUSPENSION 30 ML CUP PO PRN (00:31)
[2020-07-28] MEDS ORDERED: METHOCARBAMOL 500 MG TABLET PO PRN (10:10)
[2020-07-28] MEDS: NICOTINE 14 MG/24 HOURS TOPICAL PATCH TD SCH (11:11)
[2020-07-28] MEDS: PRENATAL VITAMINS W/ FOLIC ACID TABLET (FP) PO SCH (11:12)
[2020-07-28] MEDS: IBUPROFEN 400 MG TABLET (FP) PO PRN ×2 (11:12→21:21)
[2020-07-28] MEDS: BACLOFEN 10 MG TABLET (FP) PO PRN ×2 (11:13→21:21)
[2020-07-28] MEDS: MELATONIN 5 MG TABLETS PO SCH (21:23)
[2020-07-28] MEDS: THIAMINE HCL 100 MG TABLET (FP) PO SCH (21:23)
[2020-07-29] MEDS: PRENATAL VITAMINS W/ FOLIC ACID TABLET (FP) PO SCH (10:16)
[2020-07-29] MEDS: BACLOFEN 10 MG TABLET (FP) PO PRN ×2 (10:16→21:36)
[2020-07-29] MEDS: IBUPROFEN 400 MG TABLET (FP) PO PRN ×2 (10:17→21:36)
[2020-07-29] MEDS: NICOTINE 14 MG/24 HOURS TOPICAL PATCH TD SCH (10:18)
[2020-07-29] MEDS: MELATONIN 5 MG TABLETS PO SCH (21:37)
[2020-07-29] MEDS: THIAMINE HCL 100 MG TABLET (FP) PO SCH (21:37)
[2020-07-30] MEDS: NICOTINE 14 MG/24 HOURS TOPICAL PATCH TD SCH (10:03)
[2020-07-30] MEDS: PRENATAL VITAMINS W/ FOLIC ACID TABLET (FP) PO SCH (10:03)
[2020-07-30] MEDS: BACLOFEN 10 MG TABLET (FP) PO PRN ×2 (10:04→21:14)
[2020-07-30] MEDS: IBUPROFEN 400 MG TABLET (FP) PO PRN ×2 (10:04→21:14)
[2020-07-30] MEDS: MELATONIN 5 MG TABLETS PO SCH (21:13)
[2020-07-30] MEDS: THIAMINE HCL 100 MG TABLET (FP) PO SCH (21:13)
[2020-07-31] MEDS: PRENATAL VITAMINS W/ FOLIC ACID TABLET (FP) PO SCH (09:42)
[2020-07-31] MEDS: NICOTINE 14 MG/24 HOURS TOPICAL PATCH TD SCH (09:43)
[2020-07-31] MEDS: IBUPROFEN 400 MG TABLET (FP) PO PRN ×2 (09:44→21:14)
[2020-07-31] MEDS: BACLOFEN 10 MG TABLET (FP) PO PRN ×2 (09:44→21:14)
[2020-07-31] MEDS: THIAMINE HCL 100 MG TABLET (FP) PO SCH (21:15)
[2020-07-31] MEDS: MELATONIN 5 MG TABLETS PO SCH (21:15)
[2020-08-01] MEDS: BACLOFEN 10 MG TABLET (FP) PO PRN ×2 (09:39→22:09)
[2020-08-01] MEDS: PRENATAL VITAMINS W/ FOLIC ACID TABLET (FP) PO SCH (09:39)
[2020-08-01] MEDS: IBUPROFEN 400 MG TABLET (FP) PO PRN ×2 (09:40→22:08)
[2020-08-01] MEDS: NICOTINE 14 MG/24 HOURS TOPICAL PATCH TD SCH (09:40)
[2020-08-01] MEDS: MELATONIN 5 MG TABLETS PO SCH (22:06)
[2020-08-01] MEDS: THIAMINE HCL 100 MG TABLET (FP) PO SCH (22:08)
[2020-08-02] MEDS: BACLOFEN 10 MG TABLET (FP) PO PRN ×2 (09:36→21:39)
[2020-08-02] MEDS: PRENATAL VITAMINS W/ FOLIC ACID TABLET (FP) PO SCH (09:36)
[2020-08-02] MEDS: NICOTINE 14 MG/24 HOURS TOPICAL PATCH TD SCH (09:36)
[2020-08-02] MEDS: IBUPROFEN 400 MG TABLET (FP) PO PRN ×2 (09:36→21:40)
[2020-08-02] MEDS: THIAMINE HCL 100 MG TABLET (FP) PO SCH (21:38)
[2020-08-02] MEDS: MELATONIN 5 MG TABLETS PO SCH (21:38)
[2020-08-03] MEDS: NICOTINE 14 MG/24 HOURS TOPICAL PATCH TD SCH (09:36)
[2020-08-03] MEDS: PRENATAL VITAMINS W/ FOLIC ACID TABLET (FP) PO SCH (09:36)
[2020-08-03] MEDS: THIAMINE HCL 100 MG TABLET (FP) PO SCH (21:24)
[2020-08-03] MEDS: IBUPROFEN 400 MG TABLET (FP) PO PRN (21:24)
[2020-08-03] MEDS: MELATONIN 5 MG TABLETS PO SCH (21:24)
[2020-08-03] MEDS: BACLOFEN 10 MG TABLET (FP) PO PRN (21:25)
[2020-08-04] MEDS: NICOTINE 14 MG/24 HOURS TOPICAL PATCH TD SCH (09:19)
[2020-08-04] MEDS: PRENATAL VITAMINS W/ FOLIC ACID TABLET (FP) PO SCH (09:19)
[2020-08-04] MEDS: MELATONIN 5 MG TABLETS PO SCH (22:21)
[2020-08-04] MEDS: THIAMINE HCL 100 MG TABLET (FP) PO SCH (22:21)
[2020-08-05] MEDS: IBUPROFEN 400 MG TABLET (FP) PO PRN ×2 (09:52→21:32)
[2020-08-05] MEDS: PRENATAL VITAMINS W/ FOLIC ACID TABLET (FP) PO SCH (09:52)
[2020-08-05] MEDS: NICOTINE 14 MG/24 HOURS TOPICAL PATCH TD SCH (09:56)
[2020-08-05] MEDS: BACLOFEN 10 MG TABLET (FP) PO PRN (21:32)
[2020-08-05] MEDS: MELATONIN 5 MG TABLETS PO SCH (21:33)
[2020-08-05] MEDS: THIAMINE HCL 100 MG TABLET (FP) PO SCH (21:33)
[2020-08-06] MEDS: NICOTINE 14 MG/24 HOURS TOPICAL PATCH TD SCH (09:40)
[2020-08-06] MEDS: PRENATAL VITAMINS W/ FOLIC ACID TABLET (FP) PO SCH (09:40)
[2020-08-06] MEDS: IBUPROFEN 400 MG TABLET (FP) PO PRN (21:15)
[2020-08-06] MEDS: BACLOFEN 10 MG TABLET (FP) PO PRN (21:15)
[2020-08-06] MEDS: MELATONIN 5 MG TABLETS PO SCH (21:16)
[2020-08-06] MEDS: THIAMINE HCL 100 MG TABLET (FP) PO SCH (21:16)
[2020-08-07] MEDS: NICOTINE 14 MG/24 HOURS TOPICAL PATCH TD SCH (10:17)
[2020-08-07] MEDS: BACLOFEN 10 MG TABLET (FP) PO PRN ×2 (10:17→21:14)
[2020-08-07] MEDS: PRENATAL VITAMINS W/ FOLIC ACID TABLET (FP) PO SCH (10:17)
[2020-08-07] MEDS: IBUPROFEN 400 MG TABLET (FP) PO PRN ×2 (10:18→21:14)
[2020-08-07] MEDS: THIAMINE HCL 100 MG TABLET (FP) PO SCH (21:14)
[2020-08-07] MEDS: MELATONIN 5 MG TABLETS PO SCH (21:16)
[2020-08-08] MEDS: NICOTINE 14 MG/24 HOURS TOPICAL PATCH TD SCH (10:11)
[2020-08-08] MEDS: PRENATAL VITAMINS W/ FOLIC ACID TABLET (FP) PO SCH (10:11)
[2020-08-08] MEDS: IBUPROFEN 400 MG TABLET (FP) PO PRN (21:05)
[2020-08-08] MEDS: BACLOFEN 10 MG TABLET (FP) PO PRN (21:05)
[2020-08-08] MEDS: MELATONIN 5 MG TABLETS PO SCH (21:05)
[2020-08-08] MEDS: THIAMINE HCL 100 MG TABLET (FP) PO SCH (21:06)
[2020-08-09] MEDS: PRENATAL VITAMINS W/ FOLIC ACID TABLET (FP) PO SCH (09:59)
[2020-08-09] MEDS: NICOTINE 14 MG/24 HOURS TOPICAL PATCH TD SCH (10:00)
[2020-08-09] MEDS: THIAMINE HCL 100 MG TABLET (FP) PO SCH (21:26)
[2020-08-09] MEDS: IBUPROFEN 400 MG TABLET (FP) PO PRN (21:26)
[2020-08-09] MEDS: MELATONIN 5 MG TABLETS PO SCH (21:26)
[2020-08-10] MEDS: PRENATAL VITAMINS W/ FOLIC ACID TABLET (FP) PO SCH (09:37)
[2020-08-10] MEDS: NICOTINE 14 MG/24 HOURS TOPICAL PATCH TD SCH (09:37)
[2020-08-10] MEDS: IBUPROFEN 400 MG TABLET (FP) PO PRN ×2 (09:38→21:10)
[2020-08-10] MEDS: BACLOFEN 10 MG TABLET (FP) PO PRN (09:38)
[2020-08-10] MEDS: THIAMINE HCL 100 MG TABLET (FP) PO SCH (21:10)
[2020-08-10] MEDS: MELATONIN 5 MG TABLETS PO SCH (21:10)
[2020-08-11] MEDS: BACLOFEN 10 MG TABLET (FP) PO PRN ×2 (09:40→21:19)
[2020-08-11] MEDS: IBUPROFEN 400 MG TABLET (FP) PO PRN ×2 (09:40→21:19)
[2020-08-11] MEDS: PRENATAL VITAMINS W/ FOLIC ACID TABLET (FP) PO SCH (09:40)
[2020-08-11] MEDS: NICOTINE 14 MG/24 HOURS TOPICAL PATCH TD SCH (09:46)
[2020-08-11] MEDS: THIAMINE HCL 100 MG TABLET (FP) PO SCH (21:18)
[2020-08-11] MEDS: MELATONIN 5 MG TABLETS PO SCH (21:18)
[2020-08-12 06:54] VITALS: BP 137/79; PULSE 69; TEMP 97.6
[2020-08-12] MEDS: BACLOFEN 10 MG TABLET (FP) PO PRN (09:10)
[2020-08-12] MEDS: IBUPROFEN 400 MG TABLET (FP) PO PRN (09:10)
[2020-08-12] MEDS: PRENATAL VITAMINS W/ FOLIC ACID TABLET (FP) PO SCH (09:10)
[2020-08-12] MEDS: NICOTINE 14 MG/24 HOURS TOPICAL PATCH TD SCH (09:55)
== END 2020-08-12 09:15 | disposition home or self-care (01) | DRG 772 ==
LOC: YASAS 17:36 → Y5N 17:38
PROVIDERS: ADMIT Allergy & Immunology; ATTEND Allergy & Immunology
PROC: HZ42ZZZ Group Counseling for Substance Abuse Treatment, Cognitive-Behavioral (ICD-10-PCS; principal; 2020-07-27)
DX: F10.20 Alcohol dependence, uncomplicated (principal); F14.20 Cocaine dependence, uncomplicated; F17.210 Nicotine dependence, cigarettes, uncomplicated
CPT/HCPCS: C9803; J0475; U0003

== ENCOUNTER 2020-09-12 13:05 | Inpatient (IN) | payer OTHER ==
[2020-09-12 13:34] VITALS: BMI 24.8
[2020-09-12] MEDS ORDERED: ACETAMINOPHEN 325 MG TABLET (FP) PO PRN ×2 (14:09)
[2020-09-12] MEDS ORDERED: MAGNESIUM CITRATE 300 ML BOTTLE PO PRN (14:09)
[2020-09-12] MEDS ORDERED: ONDANSETRON *ODT* 4 MG TABLET SL PRN (14:09)
[2020-09-12] MEDS ORDERED: NICOTINE POLACRILEX 2 MG GUM BUC PRN (14:09)
[2020-09-12] MEDS ORDERED: MAG HYDROX/AL HYDROX/SIMETH 30 ML UNIT-DOSE CUP PO PRN (14:09)
[2020-09-12] MEDS ORDERED: MAGNESIUM HYDROX 2400MG/30ML ORAL SUSPENSION 30 ML CUP PO PRN (14:09)
[2020-09-12] MEDS ORDERED: chlordiazePOXIDE HCL 25 MG CAPSULE PO PRN (14:09)
[2020-09-12] MEDS ORDERED: MENTHOL/PHENOL 1 EACH UD MM PRN (14:09)
[2020-09-12] MEDS ORDERED: METHOCARBAMOL 500 MG TABLET PO PRN (14:09)
[2020-09-12] MEDS ORDERED: BISMUTH SUBSALICYLATE 524 MG/30 ML UD PO PRN (14:09)
[2020-09-12] MEDS: chlordiazePOXIDE HCL 25 MG CAPSULE PO SCH ×2 (17:27→22:48)
[2020-09-12] MEDS: hydrOXYzine PAMOATE 25 MG CAPSULE (FP) PO SCH ×2 (17:28→22:48)
[2020-09-12 19:51] LABS: EPI CELLS 1 /uL (0-25.1); HYALINE CASTS 0 /uL (0-3.1); URINE APPEARANCE CLEAR; URINE BACTERIA 61 /uL (0-1359); URINE BILIRUBIN NEGATIVE (NEGATIVE); URINE COLOR YELLOW; URINE GLUCOSE (UA) NEGATIVE (NEGATIVE); URINE KETONE NEGATIVE (NEGATIVE); URINE LEUK ESTERASE NEGATIVE (NEGATIVE); URINE NITRITE NEGATIVE (NEGATIVE); URINE PROTEIN NEGATIVE (NEGATIVE); URINE RBC 13 /uL (0-23.9); URINE UROBILINOGEN 0.2 mg/dL (0.2-1.0); URINE WBC 2 /uL (0-25.8)
[2020-09-12] MEDS: THIAMINE HCL 100 MG TABLET (FP) PO SCH (22:48)
[2020-09-12] MEDS: MELATONIN 5 MG TABLETS PO SCH (22:48)
[2020-09-13] MEDS: chlordiazePOXIDE HCL 25 MG CAPSULE PO SCH ×4 (05:10→22:25)
[2020-09-13] MEDS: hydrOXYzine PAMOATE 25 MG CAPSULE (FP) PO SCH ×5 (05:11→22:25)
[2020-09-13] MEDS: IBUPROFEN 400 MG TABLET (FP) PO PRN ×2 (05:13→22:26)
[2020-09-13 10:35] LABS: HEMATOCRIT 39.3 % (35.4-49); HEMOGLOBIN 13.5 GM/dL (11.7-16.9); MCH 29.3 pg (25.7-33.7); MCHC 34.5 g/dl (32.0-35.9); MEAN CELL VOLUME 84.9 fl (80-96); MEAN PLT VOLUME 7.9 fl (7.5-11.1); PLATELET COUNT 254 K/MM3 (134-434); RBC 4.62 M/mm3 (4.00-5.60); RDW 14.8 % (11.9-15.9); WHITE BLOOD COUNT 3.8 K/mm3 (4.0-10.0)
[2020-09-13 10:42] LABS: CALCIUM 8.7 mg/dL (8.5-10.1)
[2020-09-13 10:43] LABS: ALBUMIN 3.6 g/dl (3.4-5.0); BLOOD UREA NITROGEN 18.1 mg/dL (7-18)
[2020-09-13 10:46] LABS: CREATININE 1.2 mg/dL (0.55-1.3)
[2020-09-13 10:48] LABS: TOT PROT 7.2 g/dl (6.4-8.2)
[2020-09-13 10:49] LABS: BILIRUBIN,TOTAL 0.4 mg/dL (0.2-1)
[2020-09-13] MEDS: PRENATAL VITAMINS W/ FOLIC ACID TABLET (FP) PO SCH (11:02)
[2020-09-13] MEDS: MELATONIN 5 MG TABLETS PO SCH (22:25)
[2020-09-13] MEDS: THIAMINE HCL 100 MG TABLET (FP) PO SCH (22:25)
[2020-09-14] MEDS: chlordiazePOXIDE HCL 25 MG CAPSULE PO SCH ×4 (07:03→23:06)
[2020-09-14] MEDS: hydrOXYzine PAMOATE 25 MG CAPSULE (FP) PO SCH ×5 (07:03→23:05)
[2020-09-14] MEDS: PRENATAL VITAMINS W/ FOLIC ACID TABLET (FP) PO SCH (10:35)
[2020-09-14] MEDS ORDERED: MASKS NR ONE (17:14)
[2020-09-14] MEDS: IBUPROFEN 400 MG TABLET (FP) PO PRN (17:16)
[2020-09-14] MEDS: MELATONIN 5 MG TABLETS PO SCH (23:05)
[2020-09-14] MEDS: THIAMINE HCL 100 MG TABLET (FP) PO SCH (23:05)
[2020-09-15] MEDS ORDERED: chlordiazePOXIDE HCL 10 MG CAPSULE PO PRN
[2020-09-15] MEDS: chlordiazePOXIDE HCL 10 MG CAPSULE PO SCH ×2 (05:51→11:10)
[2020-09-15] MEDS: hydrOXYzine PAMOATE 25 MG CAPSULE (FP) PO SCH ×3 (05:51→14:14)
[2020-09-15 06:07] LABS: SARS-CoV-2 NAA Not Detected (Not Detected)
[2020-09-15] MEDS: PRENATAL VITAMINS W/ FOLIC ACID TABLET (FP) PO SCH (10:57)
[2020-09-15 17:11] VITALS: BP 138/86; PULSE 73; TEMP 97.5
[2020-09-16] MEDS ORDERED: chlordiazePOXIDE HCL 10 MG CAPSULE PO SCH (05:00)
[2020-09-17] MEDS ORDERED: chlordiazePOXIDE HCL 10 MG CAPSULE PO ONE (05:00)
== END 2020-09-15 18:35 | disposition left against medical advice (07) | DRG 770 ==
LOC: YASAS 13:05 → Y3N 15:13
PROVIDERS: ADMIT Allergy & Immunology; ATTEND Allergy & Immunology
PROC: HZ2ZZZZ Detoxification Services for Substance Abuse Treatment (ICD-10-PCS; principal; 2020-09-12)
DX: F10.230 Alcohol dependence with withdrawal, uncomplicated (principal); F14.20 Cocaine dependence, uncomplicated; F17.210 Nicotine dependence, cigarettes, uncomplicated; M17.0 Bilateral primary osteoarthritis of knee; I25.2 Old myocardial infarction; Z56.0 Unemployment, unspecified; Z59.0 Homelessness
CPT/HCPCS: 36415; 80053; 81003; 85027; 86780; C9803; U0003; U0005

== ENCOUNTER 2020-09-19 00:47 | Inpatient (IN) | payer OTHER ==
[2020-09-19] MEDS ORDERED: P-EPHED 60MG/TRIPROLIDI 2.5MG TABLET PO PRN (01:06)
[2020-09-19] MEDS ORDERED: LOPERAMIDE HCL 2 MG CAPSULE PO PRN (01:06)
[2020-09-19] MEDS ORDERED: MAGNESIUM HYDROX 2400MG/30ML ORAL SUSPENSION 30 ML CUP PO PRN (01:06)
[2020-09-19] MEDS ORDERED: MENTHOL/PHENOL 1 EACH UD MM PRN (01:06)
[2020-09-19] MEDS ORDERED: guaiFENesin 200 MG/10 ML 10 ML UNIT-DOSE CUPS PO PRN (01:06)
[2020-09-19] MEDS ORDERED: NICOTINE POLACRILEX 4 MG GUM BUC PRN (01:06)
[2020-09-19] MEDS ORDERED: MAG HYDROX/AL HYDROX/SIMETH 30 ML UNIT-DOSE CUP PO PRN (01:06)
[2020-09-19] MEDS ORDERED: hydrOXYzine PAMOATE 25 MG CAPSULE (FP) PO PRN (01:06)
[2020-09-19] MEDS ORDERED: MAGNESIUM CITRATE 300 ML BOTTLE PO PRN (01:06)
[2020-09-19 01:18] VITALS: BMI 27.2
[2020-09-19] MEDS: PRENATAL VITAMINS W/ FOLIC ACID TABLET (FP) PO SCH (11:09)
[2020-09-19] MEDS: NICOTINE 21 MG/24 HOURS TOPICAL PATCH TD SCH (11:09)
[2020-09-19] MEDS: IBUPROFEN 400 MG TABLET (FP) PO PRN ×2 (14:31→21:33)
[2020-09-19] MEDS: THIAMINE HCL 100 MG TABLET (FP) PO SCH (21:33)
[2020-09-19] MEDS: MELATONIN 5 MG TABLETS PO SCH (21:33)
[2020-09-20] MEDS: ACETAMINOPHEN 325 MG TABLET (FP) PO PRN (05:59)
[2020-09-20] MEDS: NICOTINE 21 MG/24 HOURS TOPICAL PATCH TD SCH (09:53)
[2020-09-20] MEDS: IBUPROFEN 400 MG TABLET (FP) PO PRN ×2 (09:53→21:32)
[2020-09-20] MEDS: PRENATAL VITAMINS W/ FOLIC ACID TABLET (FP) PO SCH (09:53)
[2020-09-20] MEDS: THIAMINE HCL 100 MG TABLET (FP) PO SCH (21:32)
[2020-09-20] MEDS: MELATONIN 5 MG TABLETS PO SCH (21:33)
[2020-09-21] MEDS: IBUPROFEN 400 MG TABLET (FP) PO PRN ×2 (09:46→21:42)
[2020-09-21] MEDS: PRENATAL VITAMINS W/ FOLIC ACID TABLET (FP) PO SCH (09:47)
[2020-09-21] MEDS: NICOTINE 21 MG/24 HOURS TOPICAL PATCH TD SCH (09:47)
[2020-09-21] MEDS ORDERED: MASKS NR ONE (18:22)
[2020-09-21] MEDS: MELATONIN 5 MG TABLETS PO SCH (21:41)
[2020-09-21] MEDS: THIAMINE HCL 100 MG TABLET (FP) PO SCH (21:41)
[2020-09-22] MEDS: PRENATAL VITAMINS W/ FOLIC ACID TABLET (FP) PO SCH (09:55)
[2020-09-22] MEDS: ACETAMINOPHEN 325 MG TABLET (FP) PO PRN (09:55)
[2020-09-22] MEDS: NICOTINE 21 MG/24 HOURS TOPICAL PATCH TD SCH (10:25)
[2020-09-22] MEDS ORDERED: IBUPROFEN 600 MG TABLET (FP) PO PRN (15:32)
[2020-09-22] MEDS: MELATONIN 5 MG TABLETS PO SCH (21:18)
[2020-09-22] MEDS: THIAMINE HCL 100 MG TABLET (FP) PO SCH (21:18)
[2020-09-22] MEDS: IBUPROFEN 600 MG TABLET (FP) PO PRN (21:19)
[2020-09-23] MEDS: PRENATAL VITAMINS W/ FOLIC ACID TABLET (FP) PO SCH (09:47)
[2020-09-23] MEDS: IBUPROFEN 600 MG TABLET (FP) PO PRN ×2 (09:47→21:39)
[2020-09-23] MEDS: NICOTINE 21 MG/24 HOURS TOPICAL PATCH TD SCH (10:27)
[2020-09-23] MEDS: THIAMINE HCL 100 MG TABLET (FP) PO SCH (21:38)
[2020-09-23] MEDS: MELATONIN 5 MG TABLETS PO SCH (21:39)
[2020-09-24 00:06] LABS: SARS-CoV-2 NAA Not Detected (Not Detected)
[2020-09-24] MEDS: PRENATAL VITAMINS W/ FOLIC ACID TABLET (FP) PO SCH (10:01)
[2020-09-24] MEDS: IBUPROFEN 600 MG TABLET (FP) PO PRN ×2 (10:01→21:23)
[2020-09-24] MEDS: ACETAMINOPHEN 325 MG TABLET (FP) PO PRN (10:02)
[2020-09-24] MEDS: NICOTINE 21 MG/24 HOURS TOPICAL PATCH TD SCH (10:03)
[2020-09-24] MEDS: MELATONIN 5 MG TABLETS PO SCH (21:24)
[2020-09-24] MEDS: THIAMINE HCL 100 MG TABLET (FP) PO SCH (21:24)
[2020-09-25] MEDS: NICOTINE 21 MG/24 HOURS TOPICAL PATCH TD SCH (10:06)
[2020-09-25] MEDS: PRENATAL VITAMINS W/ FOLIC ACID TABLET (FP) PO SCH (10:31)
[2020-09-25] MEDS: THIAMINE HCL 100 MG TABLET (FP) PO SCH (22:00)
[2020-09-25] MEDS: MELATONIN 5 MG TABLETS PO SCH (22:00)
[2020-09-26] MEDS: NICOTINE 21 MG/24 HOURS TOPICAL PATCH TD SCH (09:52)
[2020-09-26] MEDS: PRENATAL VITAMINS W/ FOLIC ACID TABLET (FP) PO SCH (09:52)
[2020-09-26] MEDS: IBUPROFEN 600 MG TABLET (FP) PO PRN (21:33)
[2020-09-26] MEDS: MELATONIN 5 MG TABLETS PO SCH (21:33)
[2020-09-26] MEDS: THIAMINE HCL 100 MG TABLET (FP) PO SCH (21:33)
[2020-09-27] MEDS: NICOTINE 21 MG/24 HOURS TOPICAL PATCH TD SCH (10:03)
[2020-09-27] MEDS: PRENATAL VITAMINS W/ FOLIC ACID TABLET (FP) PO SCH (10:03)
[2020-09-27] MEDS: MELATONIN 5 MG TABLETS PO SCH (22:18)
[2020-09-27] MEDS: THIAMINE HCL 100 MG TABLET (FP) PO SCH (22:18)
[2020-09-28 06:46] VITALS: BP 134/84; PULSE 71; TEMP 97.5
== END 2020-09-28 09:08 | disposition home or self-care (01) | DRG 772 ==
LOC: YASAS 00:47 → Y5N 07:43
PROVIDERS: ADMIT Allergy & Immunology; ATTEND Allergy & Immunology
PROC: HZ42ZZZ Group Counseling for Substance Abuse Treatment, Cognitive-Behavioral (ICD-10-PCS; principal; 2020-09-19)
DX: F10.20 Alcohol dependence, uncomplicated (principal); F14.20 Cocaine dependence, uncomplicated; F17.210 Nicotine dependence, cigarettes, uncomplicated; H18.413 Arcus senilis, bilateral; M17.0 Bilateral primary osteoarthritis of knee; R26.2 Difficulty in walking, not elsewhere classified; Z99.89 Dependence on other enabling machines and devices; Z87.448 Personal history of other diseases of urinary system
CPT/HCPCS: C9803; U0003; U0005

== ENCOUNTER 2020-10-10 14:42 | Inpatient (IN) | payer OTHER ==
[2020-10-10 16:06] VITALS: BMI 27.6
[2020-10-10] MEDS ORDERED: BISMUTH SUBSALICYLATE 524 MG/30 ML PO PRN (16:28)
[2020-10-10] MEDS ORDERED: MAG HYDROX/AL HYDROX/SIMETH 30 ML UNIT-DOSE CUP PO PRN (16:28)
[2020-10-10] MEDS ORDERED: MAGNESIUM CITRATE 300 ML BOTTLE PO PRN (16:28)
[2020-10-10] MEDS ORDERED: ACETAMINOPHEN 325 MG TABLET (FP) PO PRN ×2 (16:28)
[2020-10-10] MEDS ORDERED: MAGNESIUM HYDROX 2400MG/30ML ORAL SUSPENSION 30 ML CUP PO PRN (16:28)
[2020-10-10] MEDS ORDERED: MENTHOL/PHENOL 1 EACH UD MM PRN (16:28)
[2020-10-10] MEDS ORDERED: ONDANSETRON *ODT* 4 MG TABLET SL PRN (16:28)
[2020-10-10] MEDS ORDERED: diazePAM 5 MG TABLET PO PRN (16:32)
[2020-10-10] MEDS: diazePAM 5 MG TABLET PO SCH ×2 (18:56→22:55)
[2020-10-10] MEDS: THIAMINE HCL 100 MG TABLET (FP) PO SCH (22:55)
[2020-10-10] MEDS: MELATONIN 5 MG TABLETS PO SCH (22:55)
[2020-10-11] MEDS: diazePAM 5 MG TABLET PO SCH ×4 (05:52→23:06)
[2020-10-11] MEDS: PRENATAL VITAMINS W/ FOLIC ACID TABLET (FP) PO SCH (10:30)
[2020-10-11] MEDS: IBUPROFEN 400 MG TABLET (FP) PO PRN ×2 (10:30→17:30)
[2020-10-11] MEDS: THIAMINE HCL 100 MG TABLET (FP) PO SCH (23:06)
[2020-10-11] MEDS: MELATONIN 5 MG TABLETS PO SCH (23:06)
[2020-10-12] MEDS: diazePAM 5 MG TABLET PO SCH ×2 (05:49→17:48)
[2020-10-12] MEDS: IBUPROFEN 400 MG TABLET (FP) PO PRN (05:50)
[2020-10-12] MEDS: PRENATAL VITAMINS W/ FOLIC ACID TABLET (FP) PO SCH (10:52)
[2020-10-12] MEDS: THIAMINE HCL 100 MG TABLET (FP) PO SCH (22:45)
[2020-10-12] MEDS: MELATONIN 5 MG TABLETS PO SCH (22:45)
[2020-10-13] MEDS: IBUPROFEN 400 MG TABLET (FP) PO PRN (05:32)
[2020-10-13] MEDS ORDERED: diazePAM 5 MG TABLET PO ONE (06:00)
[2020-10-13 06:11] VITALS: PULSE 72
[2020-10-13 10:03] VITALS: BP 133/77; TEMP 98
== END 2020-10-13 10:14 | disposition home or self-care (01) | DRG 774 ==
LOC: YASAS 14:42 → Y6N 17:52
PROVIDERS: ADMIT Allergy & Immunology; ATTEND Allergy & Immunology
PROC: HZ2ZZZZ Detoxification Services for Substance Abuse Treatment (ICD-10-PCS; principal; 2020-10-10)
DX: F10.230 Alcohol dependence with withdrawal, uncomplicated (principal); F14.20 Cocaine dependence, uncomplicated; F17.213 Nicotine dependence, cigarettes, with withdrawal; F19.24 Other psychoactive substance dependence with psychoactive substance-induced mood disorder; M17.11 Unilateral primary osteoarthritis, right knee; I25.2 Old myocardial infarction
CPT/HCPCS: C9803; U0003; U0005

== ENCOUNTER 2020-10-26 12:58 | Inpatient (IN) | payer OTHER ==
[2020-10-26 14:15] VITALS: BMI 27.9
[2020-10-26] MEDS ORDERED: MENTHOL/PHENOL 1 EACH UD MM PRN (15:15)
[2020-10-26] MEDS ORDERED: MAGNESIUM CITRATE 300 ML BOTTLE PO PRN (15:15)
[2020-10-26] MEDS ORDERED: diazePAM 5 MG TABLET PO PRN (15:15)
[2020-10-26] MEDS ORDERED: MAGNESIUM HYDROX 2400MG/30ML ORAL SUSPENSION 30 ML CUP PO PRN (15:15)
[2020-10-26] MEDS ORDERED: METHOCARBAMOL 500 MG TABLET PO PRN (15:15)
[2020-10-26] MEDS ORDERED: ACETAMINOPHEN 325 MG TABLET (FP) PO PRN (15:15)
[2020-10-26] MEDS ORDERED: ONDANSETRON *ODT* 4 MG TABLET SL PRN (15:15)
[2020-10-26] MEDS ORDERED: BISMUTH SUBSALICYLATE 524 MG/30 ML PO PRN (15:15)
[2020-10-26] MEDS ORDERED: MAG HYDROX/AL HYDROX/SIMETH 30 ML UNIT-DOSE CUP PO PRN (15:15)
[2020-10-26] MEDS: diazePAM 5 MG TABLET PO SCH ×3 (17:30→22:26)
[2020-10-26] MEDS: hydrOXYzine PAMOATE 25 MG CAPSULE (FP) PO SCH ×2 (17:30→22:26)
[2020-10-26] MEDS: PRENATAL VITAMINS W/ FOLIC ACID TABLET (FP) PO SCH (17:30)
[2020-10-26] MEDS: ACETAMINOPHEN 325 MG TABLET (FP) PO PRN (17:31)
[2020-10-26] MEDS: MELATONIN 5 MG TABLETS PO SCH (22:26)
[2020-10-26] MEDS: THIAMINE HCL 100 MG TABLET (FP) PO SCH (22:26)
[2020-10-26] MEDS: IBUPROFEN 400 MG TABLET (FP) PO PRN (22:28)
[2020-10-27] MEDS: hydrOXYzine PAMOATE 25 MG CAPSULE (FP) PO SCH ×5 (05:54→23:06)
[2020-10-27] MEDS: diazePAM 5 MG TABLET PO SCH ×4 (05:54→23:06)
[2020-10-27] MEDS: PRENATAL VITAMINS W/ FOLIC ACID TABLET (FP) PO SCH (10:26)
[2020-10-27 13:37] LABS: HEMATOCRIT 38.7 % (35.4-49); HEMOGLOBIN 12.9 GM/dL (11.7-16.9); MCH 28.4 pg (25.7-33.7); MCHC 33.3 g/dl (32.0-35.9); MEAN CELL VOLUME 85.2 fl (80-96); MEAN PLT VOLUME 7.6 fl (7.5-11.1); PLATELET COUNT 238 10^3/uL (134-434); RBC 4.54 M/mm3 (4.00-5.60); RDW 14.8 % (11.9-15.9); WHITE BLOOD COUNT 2.9 K/mm3 (4.0-10.0)
[2020-10-27 14:20] LABS: ALBUMIN 3.4 g/dl (3.4-5.0); BILIRUBIN,TOTAL 0.4 mg/dL (0.2-1)
[2020-10-27 14:21] LABS: TOT PROT 6.4 g/dl (6.4-8.2)
[2020-10-27 14:22] LABS: CALCIUM 8.5 mg/dL (8.5-10.1)
[2020-10-27] MEDS: IBUPROFEN 400 MG TABLET (FP) PO PRN (17:30)
[2020-10-27] MEDS: MELATONIN 5 MG TABLETS PO SCH (23:06)
[2020-10-27] MEDS: THIAMINE HCL 100 MG TABLET (FP) PO SCH (23:06)
[2020-10-28] MEDS: IBUPROFEN 400 MG TABLET (FP) PO PRN ×2 (05:50→18:14)
[2020-10-28] MEDS: diazePAM 5 MG TABLET PO SCH ×3 (05:50→23:04)
[2020-10-28] MEDS: hydrOXYzine PAMOATE 25 MG CAPSULE (FP) PO SCH ×5 (05:50→23:04)
[2020-10-28] MEDS: PRENATAL VITAMINS W/ FOLIC ACID TABLET (FP) PO SCH (10:10)
[2020-10-28] MEDS: ACETAMINOPHEN 325 MG TABLET (FP) PO PRN (10:13)
[2020-10-28] MEDS: MELATONIN 5 MG TABLETS PO SCH (23:03)
[2020-10-28] MEDS: THIAMINE HCL 100 MG TABLET (FP) PO SCH (23:04)
[2020-10-29] MEDS: diazePAM 5 MG TABLET PO SCH ×2 (05:54→18:02)
[2020-10-29] MEDS: hydrOXYzine PAMOATE 25 MG CAPSULE (FP) PO SCH ×2 (05:54→09:25)
[2020-10-29] MEDS: IBUPROFEN 400 MG TABLET (FP) PO PRN (06:00)
[2020-10-29] MEDS: PRENATAL VITAMINS W/ FOLIC ACID TABLET (FP) PO SCH (09:25)
[2020-10-29 11:41] LABS: HEMATOCRIT 38.7 % (35.4-49); HEMOGLOBIN 12.7 GM/dL (11.7-16.9); MCH 27.8 pg (25.7-33.7); MCHC 32.9 g/dl (32.0-35.9); MEAN CELL VOLUME 84.5 fl (80-96); MEAN PLT VOLUME 7.5 fl (7.5-11.1); PLATELET COUNT 263 10^3/uL (134-434); RBC 4.57 M/mm3 (4.00-5.60); RDW 14.9 % (11.9-15.9); WHITE BLOOD COUNT 3.6 K/mm3 (4.0-10.0)
[2020-10-29] MEDS ORDERED: hydrOXYzine PAMOATE 25 MG CAPSULE (FP) PO PRN (11:42)
[2020-10-29] MEDS: THIAMINE HCL 100 MG TABLET (FP) PO SCH (22:51)
[2020-10-29] MEDS: MELATONIN 5 MG TABLETS PO SCH (22:51)
[2020-10-30] MEDS: ACETAMINOPHEN 325 MG TABLET (FP) PO PRN (05:44)
[2020-10-30] MEDS ORDERED: diazePAM 5 MG TABLET PO ONE (06:00)
[2020-10-30 06:44] VITALS: BP 122/79
[2020-10-30 09:18] VITALS: PULSE 80; TEMP 98.1
[2020-10-30] MEDS: PRENATAL VITAMINS W/ FOLIC ACID TABLET (FP) PO SCH (10:56)
== END 2020-10-30 12:45 | disposition other institution (70) | DRG 774 ==
LOC: YASAS 12:58 → Y3N 16:31
PROVIDERS: ADMIT Allergy & Immunology; ATTEND Allergy & Immunology
PROC: HZ2ZZZZ Detoxification Services for Substance Abuse Treatment (ICD-10-PCS; principal; 2020-10-26)
DX: F10.230 Alcohol dependence with withdrawal, uncomplicated (principal); F14.20 Cocaine dependence, uncomplicated; F17.213 Nicotine dependence, cigarettes, with withdrawal; I25.10 Atherosclerotic heart disease of native coronary artery without angina pectoris; I25.2 Old myocardial infarction; M17.11 Unilateral primary osteoarthritis, right knee; Z59.0 Homelessness
CPT/HCPCS: 36415; 80053; 85027; 86780; C9803; U0003; U0005

== ENCOUNTER 2020-10-30 12:50 | Inpatient (IN) | payer OTHER ==
[2020-10-30] MEDS ORDERED: LOPERAMIDE HCL 2 MG CAPSULE PO PRN (13:46)
[2020-10-30] MEDS ORDERED: guaiFENesin 200 MG/10 ML 10 ML UNIT-DOSE CUPS PO PRN (13:46)
[2020-10-30] MEDS ORDERED: MAGNESIUM HYDROX 2400MG/30ML ORAL SUSPENSION 30 ML CUP PO PRN (13:46)
[2020-10-30] MEDS ORDERED: MAG HYDROX/AL HYDROX/SIMETH 30 ML UNIT-DOSE CUP PO PRN (13:46)
[2020-10-30] MEDS ORDERED: MENTHOL/PHENOL 1 EACH UD MM PRN (13:46)
[2020-10-30] MEDS ORDERED: MAGNESIUM CITRATE 300 ML BOTTLE PO PRN (13:46)
[2020-10-30] MEDS ORDERED: NICOTINE POLACRILEX 2 MG GUM BUC PRN (13:46)
[2020-10-30] MEDS ORDERED: P-EPHED 60MG/TRIPROLIDI 2.5MG TABLET PO PRN (13:46)
[2020-10-30] MEDS ORDERED: TUBERCULIN PPD 5 TU/0.1ML VIAL ID ONE (15:22)
[2020-10-30] MEDS: hydrOXYzine PAMOATE 25 MG CAPSULE (FP) PO SCH ×3 (15:23→21:37)
[2020-10-30] MEDS: MELATONIN 5 MG TABLETS PO SCH (21:37)
[2020-10-30] MEDS: THIAMINE HCL 100 MG TABLET (FP) PO SCH (21:37)
[2020-10-31] MEDS: hydrOXYzine PAMOATE 25 MG CAPSULE (FP) PO SCH ×5 (06:49→21:44)
[2020-10-31] MEDS: NICOTINE 7 MG/24 HOURS TOPICAL PATCH TD SCH (10:39)
[2020-10-31] MEDS: PRENATAL VITAMINS W/ FOLIC ACID TABLET (FP) PO SCH (10:39)
[2020-10-31] MEDS ORDERED: MASKS NR ONE (10:53)
[2020-10-31] MEDS: THIAMINE HCL 100 MG TABLET (FP) PO SCH (21:40)
[2020-10-31] MEDS: MELATONIN 5 MG TABLETS PO SCH (21:41)
[2020-11-01] MEDS: hydrOXYzine PAMOATE 25 MG CAPSULE (FP) PO SCH ×5 (06:19→22:55)
[2020-11-01] MEDS: ACETAMINOPHEN 325 MG TABLET (FP) PO PRN (06:44)
[2020-11-01] MEDS: NICOTINE 7 MG/24 HOURS TOPICAL PATCH TD SCH (09:55)
[2020-11-01] MEDS: PRENATAL VITAMINS W/ FOLIC ACID TABLET (FP) PO SCH (09:55)
[2020-11-01] MEDS: THIAMINE HCL 100 MG TABLET (FP) PO SCH (22:55)
[2020-11-01] MEDS: MELATONIN 5 MG TABLETS PO SCH (22:55)
[2020-11-02] MEDS: hydrOXYzine PAMOATE 25 MG CAPSULE (FP) PO SCH ×5 (06:22→23:08)
[2020-11-02] MEDS: NICOTINE 7 MG/24 HOURS TOPICAL PATCH TD SCH (09:55)
[2020-11-02] MEDS: PRENATAL VITAMINS W/ FOLIC ACID TABLET (FP) PO SCH (09:55)
[2020-11-02] MEDS: ACETAMINOPHEN 325 MG TABLET (FP) PO PRN (10:36)
[2020-11-02] MEDS: MELATONIN 5 MG TABLETS PO SCH (23:08)
[2020-11-02] MEDS: THIAMINE HCL 100 MG TABLET (FP) PO SCH (23:08)
[2020-11-03] MEDS: hydrOXYzine PAMOATE 25 MG CAPSULE (FP) PO SCH ×5 (06:12→22:09)
[2020-11-03] MEDS: NICOTINE 7 MG/24 HOURS TOPICAL PATCH TD SCH (10:09)
[2020-11-03] MEDS: PRENATAL VITAMINS W/ FOLIC ACID TABLET (FP) PO SCH (10:09)
[2020-11-03] MEDS: ACETAMINOPHEN 325 MG TABLET (FP) PO PRN (10:10)
[2020-11-03] MEDS: THIAMINE HCL 100 MG TABLET (FP) PO SCH (22:09)
[2020-11-03] MEDS: MELATONIN 5 MG TABLETS PO SCH (22:09)
[2020-11-04] MEDS: hydrOXYzine PAMOATE 25 MG CAPSULE (FP) PO SCH ×5 (06:09→22:53)
[2020-11-04] MEDS: PRENATAL VITAMINS W/ FOLIC ACID TABLET (FP) PO SCH (09:42)
[2020-11-04] MEDS: NICOTINE 7 MG/24 HOURS TOPICAL PATCH TD SCH (09:42)
[2020-11-04] MEDS: ACETAMINOPHEN 325 MG TABLET (FP) PO PRN (09:43)
[2020-11-04] MEDS: MELATONIN 5 MG TABLETS PO SCH (22:53)
[2020-11-04] MEDS: THIAMINE HCL 100 MG TABLET (FP) PO SCH (22:53)
[2020-11-05] MEDS: hydrOXYzine PAMOATE 25 MG CAPSULE (FP) PO SCH ×5 (06:22→22:48)
[2020-11-05] MEDS: NICOTINE 7 MG/24 HOURS TOPICAL PATCH TD SCH (09:45)
[2020-11-05] MEDS: ACETAMINOPHEN 325 MG TABLET (FP) PO PRN (09:45)
[2020-11-05] MEDS: PRENATAL VITAMINS W/ FOLIC ACID TABLET (FP) PO SCH (09:45)
[2020-11-05] MEDS: MELATONIN 5 MG TABLETS PO SCH (22:48)
[2020-11-05] MEDS: THIAMINE HCL 100 MG TABLET (FP) PO SCH (22:48)
[2020-11-06] MEDS: hydrOXYzine PAMOATE 25 MG CAPSULE (FP) PO SCH ×5 (07:10→21:39)
[2020-11-06] MEDS: IBUPROFEN 400 MG TABLET (FP) PO PRN (10:03)
[2020-11-06] MEDS: NICOTINE 7 MG/24 HOURS TOPICAL PATCH TD SCH (10:04)
[2020-11-06] MEDS: PRENATAL VITAMINS W/ FOLIC ACID TABLET (FP) PO SCH (10:04)
[2020-11-06] MEDS: THIAMINE HCL 100 MG TABLET (FP) PO SCH (21:39)
[2020-11-06] MEDS: MELATONIN 5 MG TABLETS PO SCH (21:39)
[2020-11-07] MEDS: hydrOXYzine PAMOATE 25 MG CAPSULE (FP) PO SCH ×5 (06:38→23:03)
[2020-11-07] MEDS: IBUPROFEN 400 MG TABLET (FP) PO PRN (09:53)
[2020-11-07] MEDS: NICOTINE 7 MG/24 HOURS TOPICAL PATCH TD SCH (09:54)
[2020-11-07] MEDS: PRENATAL VITAMINS W/ FOLIC ACID TABLET (FP) PO SCH (09:54)
[2020-11-07] MEDS: MELATONIN 5 MG TABLETS PO SCH (23:03)
[2020-11-07] MEDS: THIAMINE HCL 100 MG TABLET (FP) PO SCH (23:03)
[2020-11-08] MEDS: hydrOXYzine PAMOATE 25 MG CAPSULE (FP) PO SCH ×2 (06:29→09:56)
[2020-11-08] MEDS: NICOTINE 7 MG/24 HOURS TOPICAL PATCH TD SCH (09:56)
[2020-11-08] MEDS: PRENATAL VITAMINS W/ FOLIC ACID TABLET (FP) PO SCH (09:56)
[2020-11-08] MEDS ORDERED: hydrOXYzine PAMOATE 25 MG CAPSULE (FP) PO PRN (10:45)
[2020-11-08] MEDS: MELATONIN 5 MG TABLETS PO SCH (21:31)
[2020-11-08] MEDS: THIAMINE HCL 100 MG TABLET (FP) PO SCH (21:31)
[2020-11-09] MEDS: NICOTINE 7 MG/24 HOURS TOPICAL PATCH TD SCH (09:39)
[2020-11-09] MEDS: PRENATAL VITAMINS W/ FOLIC ACID TABLET (FP) PO SCH (09:39)
[2020-11-09] MEDS: IBUPROFEN 400 MG TABLET (FP) PO PRN (09:40)
[2020-11-09] MEDS: THIAMINE HCL 100 MG TABLET (FP) PO SCH (23:13)
[2020-11-09] MEDS: MELATONIN 5 MG TABLETS PO SCH (23:13)
[2020-11-10] MEDS ORDERED: MASKS NR ONE (09:02)
[2020-11-10] MEDS: NICOTINE 7 MG/24 HOURS TOPICAL PATCH TD SCH (10:23)
[2020-11-10] MEDS: PRENATAL VITAMINS W/ FOLIC ACID TABLET (FP) PO SCH (10:23)
[2020-11-10] MEDS: IBUPROFEN 400 MG TABLET (FP) PO PRN (10:26)
[2020-11-10] MEDS: THIAMINE HCL 100 MG TABLET (FP) PO SCH (22:19)
[2020-11-10] MEDS: MELATONIN 5 MG TABLETS PO SCH (22:19)
[2020-11-11 05:22] VITALS: BP 137/93; PULSE 73; TEMP 97.3
[2020-11-11] MEDS: NICOTINE 7 MG/24 HOURS TOPICAL PATCH TD SCH (09:04)
[2020-11-11] MEDS: PRENATAL VITAMINS W/ FOLIC ACID TABLET (FP) PO SCH (09:04)
== END 2020-11-11 09:07 | disposition home or self-care (01) | DRG 772 ==
LOC: YASAS 12:50 → Y5N 12:53
PROVIDERS: ADMIT Allergy & Immunology; ATTEND Allergy & Immunology
PROC: HZ42ZZZ Group Counseling for Substance Abuse Treatment, Cognitive-Behavioral (ICD-10-PCS; principal; 2020-10-30)
DX: F10.20 Alcohol dependence, uncomplicated (principal); F14.20 Cocaine dependence, uncomplicated; F17.213 Nicotine dependence, cigarettes, with withdrawal; I25.10 Atherosclerotic heart disease of native coronary artery without angina pectoris; I25.2 Old myocardial infarction; M17.0 Bilateral primary osteoarthritis of knee; R63.4 Abnormal weight loss; Z68.28 Body mass index [BMI] 28.0-28.9, adult

== ENCOUNTER 2020-11-26 04:32 | Inpatient (IN) | payer OTHER ==
[2020-11-26 04:49] VITALS: BMI 28.1
[2020-11-26] MEDS ORDERED: ONDANSETRON *ODT* 4 MG TABLET SL PRN (08:22)
[2020-11-26] MEDS ORDERED: MENTHOL/PHENOL 1 EACH UD MM PRN (08:22)
[2020-11-26] MEDS ORDERED: BISMUTH SUBSALICYLATE 262 MG/15 ML BTL PO PRN (08:22)
[2020-11-26] MEDS ORDERED: NICOTINE POLACRILEX 2 MG GUM BUC PRN (08:22)
[2020-11-26] MEDS ORDERED: MAGNESIUM CITRATE 300 ML BOTTLE PO PRN (08:22)
[2020-11-26] MEDS ORDERED: ACETAMINOPHEN 325 MG TABLET (FP) PO PRN (08:22)
[2020-11-26] MEDS ORDERED: MAGNESIUM HYDROX 2400MG/30ML ORAL SUSPENSION 30 ML CUP PO PRN (08:22)
[2020-11-26] MEDS ORDERED: MAG HYDROX/AL HYDROX/SIMETH 30 ML UNIT-DOSE CUP PO PRN (08:22)
[2020-11-26] MEDS ORDERED: hydrOXYzine PAMOATE 25 MG CAPSULE (FP) PO SCH (10:00)
[2020-11-26] MEDS ORDERED: hydrOXYzine PAMOATE 25 MG CAPSULE (FP) PO PRN (10:23)
[2020-11-26] MEDS: PRENATAL VITAMINS W/ FOLIC ACID TABLET (FP) PO SCH (11:21)
[2020-11-26] MEDS: NICOTINE 21 MG/24 HOURS TOPICAL PATCH TD SCH (11:21)
[2020-11-26 12:57] LABS: CALCIUM 9.4 mg/dL (8.5-10.1)
[2020-11-26 12:58] LABS: ALBUMIN 4.1 g/dl (3.4-5.0); BLOOD UREA NITROGEN 16.1 mg/dL (7-18); HEMATOCRIT 40.2 % (35.4-49); HEMOGLOBIN 13.9 GM/dL (11.7-16.9); MCH 28.6 pg (25.7-33.7); MCHC 34.5 g/dl (32.0-35.9); MEAN CELL VOLUME 83.1 fl (80-96); MEAN PLT VOLUME 7.5 fl (7.5-11.1); PLATELET COUNT 254 10^3/uL (134-434); RBC 4.84 M/mm3 (4.00-5.60); WHITE BLOOD COUNT 7.4 K/mm3 (4.0-10.0)
[2020-11-26 13:02] LABS: CREATININE 1.2 mg/dL (0.55-1.3)
[2020-11-26 13:03] LABS: BILIRUBIN,TOTAL 0.5 mg/dL (0.2-1)
[2020-11-26] MEDS: IBUPROFEN 400 MG TABLET (FP) PO PRN (17:34)
[2020-11-26] MEDS: THIAMINE HCL 100 MG TABLET (FP) PO SCH (22:48)
[2020-11-26] MEDS: MELATONIN 5 MG TABLETS PO SCH (23:09)
[2020-11-27] MEDS: NICOTINE 21 MG/24 HOURS TOPICAL PATCH TD SCH (10:47)
[2020-11-27] MEDS: PRENATAL VITAMINS W/ FOLIC ACID TABLET (FP) PO SCH (10:47)
[2020-11-27] MEDS ORDERED: LORazepam 1 MG TABLET PO PRN (12:28)
[2020-11-27] MEDS ORDERED: LORazepam 2 MG TABLET PO ONE (12:28)
[2020-11-27] MEDS: ACETAMINOPHEN 325 MG TABLET (FP) PO PRN (13:39)
[2020-11-27] MEDS: LORazepam 2 MG TABLET PO SCH ×2 (17:45→22:08)
[2020-11-27] MEDS: IBUPROFEN 400 MG TABLET (FP) PO PRN (17:46)
[2020-11-27] MEDS: MELATONIN 5 MG TABLETS PO SCH (22:08)
[2020-11-27] MEDS: THIAMINE HCL 100 MG TABLET (FP) PO SCH (22:08)
[2020-11-27] MEDS: METHOCARBAMOL 500 MG TABLET PO PRN (22:09)
[2020-11-28] MEDS: LORazepam 2 MG TABLET PO SCH ×4 (05:58→23:31)
[2020-11-28] MEDS: METHOCARBAMOL 500 MG TABLET PO PRN (05:59)
[2020-11-28] MEDS: PRENATAL VITAMINS W/ FOLIC ACID TABLET (FP) PO SCH (10:31)
[2020-11-28] MEDS: ACETAMINOPHEN 325 MG TABLET (FP) PO PRN (10:33)
[2020-11-28] MEDS: NICOTINE 21 MG/24 HOURS TOPICAL PATCH TD SCH (10:33)
[2020-11-28] MEDS: THIAMINE HCL 100 MG TABLET (FP) PO SCH (22:26)
[2020-11-28] MEDS: MELATONIN 5 MG TABLETS PO SCH (22:26)
[2020-11-29] MEDS: LORazepam 1 MG TABLET PO SCH ×4 (05:16→23:21)
[2020-11-29] MEDS: PRENATAL VITAMINS W/ FOLIC ACID TABLET (FP) PO SCH (10:21)
[2020-11-29] MEDS: ACETAMINOPHEN 325 MG TABLET (FP) PO PRN (10:22)
[2020-11-29] MEDS: NICOTINE 21 MG/24 HOURS TOPICAL PATCH TD SCH (10:23)
[2020-11-29] MEDS: MELATONIN 5 MG TABLETS PO SCH (23:21)
[2020-11-29] MEDS: THIAMINE HCL 100 MG TABLET (FP) PO SCH (23:21)
[2020-11-30] MEDS ORDERED: LORazepam 0.5 MG TABLET PO PRN
[2020-11-30] MEDS: ACETAMINOPHEN 325 MG TABLET (FP) PO PRN (05:32)
[2020-11-30] MEDS: METHOCARBAMOL 500 MG TABLET PO PRN (05:34)
[2020-11-30] MEDS: LORazepam 0.5 MG TABLET PO SCH ×2 (06:21→11:09)
[2020-11-30 09:34] VITALS: BP 105/69; PULSE 86; TEMP 97.1
[2020-11-30] MEDS: PRENATAL VITAMINS W/ FOLIC ACID TABLET (FP) PO SCH (11:09)
[2020-11-30] MEDS: NICOTINE 21 MG/24 HOURS TOPICAL PATCH TD SCH (11:09)
[2020-12-01] MEDS ORDERED: LORazepam 0.5 MG TABLET PO ONE (05:00)
== END 2020-11-30 13:34 | disposition home or self-care (01) | DRG 774 ==
LOC: YASAS 04:32 → Y3N 08:31 → UNDOADMIN 08:31
PROVIDERS: ADMIT Allergy & Immunology; ATTEND Allergy & Immunology
PROC: HZ2ZZZZ Detoxification Services for Substance Abuse Treatment (ICD-10-PCS; principal; 2020-11-26)
DX: F10.230 Alcohol dependence with withdrawal, uncomplicated (principal); F14.20 Cocaine dependence, uncomplicated; F17.210 Nicotine dependence, cigarettes, uncomplicated; M17.0 Bilateral primary osteoarthritis of knee; Z86.69 Personal history of other diseases of the nervous system and sense organs
CPT/HCPCS: 36415; 80053; 85027; 86780; C9803; U0003; U0005

== ENCOUNTER 2020-12-06 00:48 | Inpatient (IN) | payer OTHER ==
[2020-12-06 01:38] VITALS: BMI 28.5
[2020-12-06] MEDS ORDERED: MENTHOL/PHENOL 1 EACH UD MM PRN (02:07)
[2020-12-06] MEDS ORDERED: ACETAMINOPHEN 325 MG TABLET (FP) PO PRN ×2 (02:07)
[2020-12-06] MEDS ORDERED: BISMUTH SUBSALICYLATE 524 MG/30 ML PO PRN (02:07)
[2020-12-06] MEDS ORDERED: MAGNESIUM CITRATE 300 ML BOTTLE PO PRN (02:07)
[2020-12-06] MEDS ORDERED: NICOTINE POLACRILEX 2 MG GUM BUC PRN (02:07)
[2020-12-06] MEDS ORDERED: METHOCARBAMOL 500 MG TABLET PO PRN (02:07)
[2020-12-06] MEDS ORDERED: ONDANSETRON *ODT* 4 MG TABLET SL PRN (02:07)
[2020-12-06] MEDS ORDERED: MAG HYDROX/AL HYDROX/SIMETH 30 ML UNIT-DOSE CUP PO PRN (02:07)
[2020-12-06] MEDS ORDERED: MAGNESIUM HYDROX 2400MG/30ML ORAL SUSPENSION 30 ML CUP PO PRN (02:07)
[2020-12-06] MEDS: NICOTINE 21 MG/24 HOURS TOPICAL PATCH TD SCH (10:17)
[2020-12-06] MEDS: PRENATAL VITAMINS W/ FOLIC ACID TABLET (FP) PO SCH (10:17)
[2020-12-06] MEDS ORDERED: MELATONIN 5 MG TABLETS PO SCH (22:00)
[2020-12-06] MEDS ORDERED: THIAMINE HCL 100 MG TABLET (FP) PO SCH (22:00)
[2020-12-06] MEDS: IBUPROFEN 400 MG TABLET (FP) PO PRN (23:34)
[2020-12-07 09:37] VITALS: BP 121/69; PULSE 69; TEMP 97.1
[2020-12-07] MEDS: PRENATAL VITAMINS W/ FOLIC ACID TABLET (FP) PO SCH (10:39)
[2020-12-07] MEDS: IBUPROFEN 400 MG TABLET (FP) PO PRN (10:41)
[2020-12-07] MEDS: NICOTINE 21 MG/24 HOURS TOPICAL PATCH TD SCH (10:43)
== END 2020-12-07 12:24 | disposition home or self-care (01) | DRG 774 ==
LOC: YASAS 00:48 → Y3N 03:35 → UNDOADMIN 03:35
PROVIDERS: ADMIT Allergy & Immunology; ATTEND Allergy & Immunology
PROC: HZ2ZZZZ Detoxification Services for Substance Abuse Treatment (ICD-10-PCS; principal; 2020-12-06)
DX: F10.230 Alcohol dependence with withdrawal, uncomplicated (principal); F14.20 Cocaine dependence, uncomplicated; F17.210 Nicotine dependence, cigarettes, uncomplicated; F19.24 Other psychoactive substance dependence with psychoactive substance-induced mood disorder; I25.2 Old myocardial infarction; H18.413 Arcus senilis, bilateral; M17.11 Unilateral primary osteoarthritis, right knee; R00.0 Tachycardia, unspecified; Z86.69 Personal history of other diseases of the nervous system and sense organs; Z56.0 Unemployment, unspecified
CPT/HCPCS: 36415; 86780; C9803; U0003; U0005

== ENCOUNTER 2020-12-19 04:23 | Inpatient (IN) | payer OTHER ==
[2020-12-19 04:44] VITALS: BMI 28.5
[2020-12-19] MEDS ORDERED: MAG HYDROX/AL HYDROX/SIMETH 30 ML UNIT-DOSE CUP PO PRN (11:36)
[2020-12-19] MEDS ORDERED: ACETAMINOPHEN 325 MG TABLET (FP) PO PRN (11:36)
[2020-12-19] MEDS ORDERED: ONDANSETRON *ODT* 4 MG TABLET SL PRN (11:36)
[2020-12-19] MEDS ORDERED: NICOTINE POLACRILEX 2 MG GUM BUC PRN (11:36)
[2020-12-19] MEDS ORDERED: MENTHOL/PHENOL 1 EACH UD MM PRN (11:36)
[2020-12-19] MEDS ORDERED: BISMUTH SUBSALICYLATE 524 MG/30 ML PO PRN (11:36)
[2020-12-19] MEDS ORDERED: diazePAM 5 MG TABLET PO PRN (11:36)
[2020-12-19] MEDS ORDERED: NICOTINE 10 MG CARTRIDGE (INHALER) IH PRN (11:36)
[2020-12-19] MEDS ORDERED: MAGNESIUM HYDROX 2400MG/30ML ORAL SUSPENSION 30 ML CUP PO PRN (11:36)
[2020-12-19] MEDS ORDERED: MAGNESIUM CITRATE 300 ML BOTTLE PO PRN (11:36)
[2020-12-19] MEDS: diazePAM 5 MG TABLET PO SCH ×2 (17:38→23:09)
[2020-12-19] MEDS: IBUPROFEN 400 MG TABLET (FP) PO PRN (17:38)
[2020-12-19] MEDS: hydrOXYzine PAMOATE 25 MG CAPSULE (FP) PO SCH ×2 (18:55→23:09)
[2020-12-19] MEDS: MELATONIN 5 MG TABLETS PO SCH (23:09)
[2020-12-19] MEDS: THIAMINE HCL 100 MG TABLET (FP) PO SCH (23:10)
[2020-12-20] MEDS: diazePAM 5 MG TABLET PO SCH ×4 (05:51→23:13)
[2020-12-20] MEDS: hydrOXYzine PAMOATE 25 MG CAPSULE (FP) PO SCH ×4 (05:52→23:13)
[2020-12-20 10:18] LABS: HEMATOCRIT 37.8 % (35.4-49); HEMOGLOBIN 13.1 GM/dL (11.7-16.9); MCH 29.1 pg (25.7-33.7); MCHC 34.6 g/dl (32.0-35.9); MEAN CELL VOLUME 83.9 fl (80-96); MEAN PLT VOLUME 7.7 fl (7.5-11.1); PLATELET COUNT 262 10^3/uL (134-434); RBC 4.51 M/mm3 (4.00-5.60); RDW 15.1 % (11.9-15.9); WHITE BLOOD COUNT 3.3 K/mm3 (4.0-10.0)
[2020-12-20] MEDS: METHOCARBAMOL 500 MG TABLET PO PRN (10:24)
[2020-12-20] MEDS: PRENATAL VITAMINS W/ FOLIC ACID TABLET (FP) PO SCH (10:24)
[2020-12-20] MEDS: NICOTINE 21 MG/24 HOURS TOPICAL PATCH TD SCH (10:26)
[2020-12-20 12:30] LABS: BLOOD UREA NITROGEN 15.6 mg/dL (7-18)
[2020-12-20 12:31] LABS: ALBUMIN 3.4 g/dl (3.4-5.0); CALCIUM 8.7 mg/dL (8.5-10.1)
[2020-12-20 12:34] LABS: CREATININE 1.1 mg/dL (0.55-1.3)
[2020-12-20 12:36] LABS: BILIRUBIN,TOTAL 0.4 mg/dL (0.2-1); TOT PROT 6.6 g/dl (6.4-8.2)
[2020-12-20] MEDS: MELATONIN 5 MG TABLETS PO SCH (23:12)
[2020-12-20] MEDS: THIAMINE HCL 100 MG TABLET (FP) PO SCH (23:13)
[2020-12-21] MEDS: diazePAM 5 MG TABLET PO SCH ×2 (05:23→13:07)
[2020-12-21] MEDS: hydrOXYzine PAMOATE 25 MG CAPSULE (FP) PO SCH ×3 (05:24→13:08)
[2020-12-21] MEDS: NICOTINE 21 MG/24 HOURS TOPICAL PATCH TD SCH (10:13)
[2020-12-21] MEDS: PRENATAL VITAMINS W/ FOLIC ACID TABLET (FP) PO SCH (10:13)
[2020-12-21] MEDS: ACETAMINOPHEN 325 MG TABLET (FP) PO PRN (10:14)
[2020-12-21] MEDS: METHOCARBAMOL 500 MG TABLET PO PRN (10:15)
[2020-12-21] MEDS ORDERED: diazePAM 5 MG TABLET PO PRN ×2 (13:53→13:56)
[2020-12-21] MEDS ORDERED: hydrOXYzine PAMOATE 25 MG CAPSULE (FP) PO PRN (17:00)
[2020-12-21] MEDS ORDERED: diazePAM 5 MG TABLET PO SCH (22:00)
[2020-12-21] MEDS: MELATONIN 5 MG TABLETS PO SCH (22:22)
[2020-12-21] MEDS: THIAMINE HCL 100 MG TABLET (FP) PO SCH (22:22)
[2020-12-22] MEDS ORDERED: diazePAM 5 MG TABLET PO SCH (06:00)
[2020-12-22] MEDS: diazePAM 5 MG TABLET PO SCH ×3 (06:02→17:58)
[2020-12-22] MEDS: IBUPROFEN 400 MG TABLET (FP) PO PRN (06:10)
[2020-12-22] MEDS: PRENATAL VITAMINS W/ FOLIC ACID TABLET (FP) PO SCH (10:06)
[2020-12-22] MEDS: NICOTINE 21 MG/24 HOURS TOPICAL PATCH TD SCH (10:06)
[2020-12-22 11:01] LABS: BASO % 1.3 % (0-2.0); EOS % 4.6 % (0-4.5); HEMATOCRIT 38.6 % (35.4-49); HEMOGLOBIN 13.4 GM/dL (11.7-16.9); MCHC 34.6 g/dl (32.0-35.9); MEAN CELL VOLUME 83.7 fl (80-96); MEAN PLT VOLUME 7.7 fl (7.5-11.1); MONO % 13.5 % (3.8-10.2); NEUT % 33.6 % (42.8-82.8); PLATELET COUNT 261 10^3/uL (134-434); RBC 4.61 M/mm3 (4.00-5.60); RDW 15.1 % (11.9-15.9); WHITE BLOOD COUNT 3.9 K/mm3 (4.0-10.0)
[2020-12-22] MEDS: ACETAMINOPHEN 325 MG TABLET (FP) PO PRN (17:58)
[2020-12-22 22:32] VITALS: TEMP 97.8
[2020-12-22] MEDS: MELATONIN 5 MG TABLETS PO SCH (23:14)
[2020-12-22] MEDS: THIAMINE HCL 100 MG TABLET (FP) PO SCH (23:14)
[2020-12-23] MEDS ORDERED: diazePAM 5 MG TABLET PO ONE ×2 (06:00)
[2020-12-23] MEDS: PRENATAL VITAMINS W/ FOLIC ACID TABLET (FP) PO SCH (10:32)
[2020-12-23] MEDS: NICOTINE 21 MG/24 HOURS TOPICAL PATCH TD SCH (10:32)
[2020-12-23 11:13] VITALS: BP 114/75; PULSE 78
== END 2020-12-23 10:38 | disposition other institution (70) | DRG 774 ==
LOC: YASAS 04:23 → Y6N 15:38
PROVIDERS: ADMIT Allergy & Immunology; ATTEND Allergy & Immunology
PROC: HZ2ZZZZ Detoxification Services for Substance Abuse Treatment (ICD-10-PCS; principal; 2020-12-19)
DX: F10.230 Alcohol dependence with withdrawal, uncomplicated (principal); F14.20 Cocaine dependence, uncomplicated; F17.213 Nicotine dependence, cigarettes, with withdrawal; Z86.69 Personal history of other diseases of the nervous system and sense organs; Z86.79 Personal history of other diseases of the circulatory system; I25.2 Old myocardial infarction; Z59.0 Homelessness
CPT/HCPCS: 36415; 80053; 85025; 85027; 86780; C9803; U0003; U0005

== ENCOUNTER 2020-12-23 10:04 | Inpatient (IN) | payer OTHER ==
[2020-12-23] MEDS ORDERED: P-EPHED 60MG/TRIPROLIDI 2.5MG TABLET PO PRN (12:25)
[2020-12-23] MEDS ORDERED: hydrOXYzine PAMOATE 25 MG CAPSULE (FP) PO PRN (12:25)
[2020-12-23] MEDS ORDERED: NICOTINE POLACRILEX 2 MG GUM BUC PRN (12:25)
[2020-12-23] MEDS ORDERED: IBUPROFEN 400 MG TABLET (FP) PO PRN (12:25)
[2020-12-23] MEDS ORDERED: LOPERAMIDE HCL 2 MG CAPSULE PO PRN (12:25)
[2020-12-23] MEDS ORDERED: MAGNESIUM CITRATE 300 ML BOTTLE PO PRN (12:25)
[2020-12-23] MEDS ORDERED: MAGNESIUM HYDROX 2400MG/30ML ORAL SUSPENSION 30 ML CUP PO PRN (12:25)
[2020-12-23] MEDS ORDERED: MAG HYDROX/AL HYDROX/SIMETH 30 ML UNIT-DOSE CUP PO PRN (12:25)
[2020-12-23] MEDS ORDERED: guaiFENesin 200 MG/10 ML 10 ML UNIT-DOSE CUPS PO PRN (12:25)
[2020-12-23] MEDS ORDERED: ACETAMINOPHEN 325 MG TABLET (FP) PO PRN (12:25)
[2020-12-23] MEDS ORDERED: NICOTINE 10 MG CARTRIDGE (INHALER) IH PRN (12:25)
[2020-12-23] MEDS ORDERED: MENTHOL/PHENOL 1 EACH UD MM PRN (12:25)
[2020-12-23] MEDS ORDERED: MELATONIN 5 MG TABLETS PO SCH (22:00)
[2020-12-23] MEDS ORDERED: THIAMINE HCL 100 MG TABLET (FP) PO SCH (22:00)
[2020-12-24 07:20] VITALS: BP 122/80; PULSE 57; TEMP 97.6
[2020-12-24] MEDS ORDERED: PRENATAL VITAMINS W/ FOLIC ACID TABLET (FP) PO SCH (10:00)
[2020-12-24] MEDS ORDERED: NICOTINE 7 MG/24 HOURS TOPICAL PATCH TD SCH (10:00)
== END 2020-12-24 11:15 | disposition left against medical advice (07) | DRG 770 ==
LOC: YASAS 10:04 → Y3E 10:07
PROVIDERS: ADMIT Allergy & Immunology; ATTEND Allergy & Immunology
PROC: HZ42ZZZ Group Counseling for Substance Abuse Treatment, Cognitive-Behavioral (ICD-10-PCS; principal; 2020-12-23)
DX: F10.20 Alcohol dependence, uncomplicated (principal); F14.20 Cocaine dependence, uncomplicated; F17.210 Nicotine dependence, cigarettes, uncomplicated

== ENCOUNTER 2021-01-26 08:26 | Inpatient (IN) | payer OTHER ==
[2021-01-26 11:57] VITALS: BMI 26.6
[2021-01-26] MEDS ORDERED: MAGNESIUM HYDROX 2400MG/30ML ORAL SUSPENSION 30 ML CUP PO PRN (12:18)
[2021-01-26] MEDS ORDERED: ONDANSETRON *ODT* 4 MG TABLET SL PRN (12:18)
[2021-01-26] MEDS ORDERED: MENTHOL/PHENOL 1 EACH UD MM PRN (12:18)
[2021-01-26] MEDS ORDERED: diazePAM 5 MG TABLET PO PRN (12:18)
[2021-01-26] MEDS ORDERED: BISMUTH SUBSALICYLATE 524 MG/30 ML PO PRN (12:18)
[2021-01-26] MEDS ORDERED: IBUPROFEN 400 MG TABLET (FP) PO PRN (12:18)
[2021-01-26] MEDS ORDERED: MAG HYDROX/AL HYDROX/SIMETH 30 ML UNIT-DOSE CUP PO PRN (12:18)
[2021-01-26] MEDS ORDERED: NICOTINE 10 MG CARTRIDGE (INHALER) IH PRN (12:18)
[2021-01-26] MEDS ORDERED: METHOCARBAMOL 500 MG TABLET PO PRN (12:18)
[2021-01-26] MEDS ORDERED: MAGNESIUM CITRATE 300 ML BOTTLE PO PRN (12:18)
[2021-01-26] MEDS ORDERED: ACETAMINOPHEN 325 MG TABLET (FP) PO PRN ×2 (12:18)
[2021-01-26 15:02] LABS: HEMATOCRIT 38.5 % (35.4-49); HEMOGLOBIN 13.2 GM/dL (11.7-16.9); MCH 28.5 pg (25.7-33.7); MCHC 34.2 g/dl (32.0-35.9); MEAN CELL VOLUME 83.2 fl (80-96); MEAN PLT VOLUME 7.9 fl (7.5-11.1); PLATELET COUNT 293 10^3/uL (134-434); RBC 4.63 M/mm3 (4.00-5.60); RDW 15.6 % (11.9-15.9); WHITE BLOOD COUNT 5.7 K/mm3 (4.0-10.0)
[2021-01-26] MEDS: hydrOXYzine PAMOATE 25 MG CAPSULE (FP) PO SCH ×3 (15:09→23:12)
[2021-01-26] MEDS: diazePAM 5 MG TABLET PO SCH ×3 (15:09→23:11)
[2021-01-26] MEDS: PRENATAL VITAMINS W/ FOLIC ACID TABLET (FP) PO SCH (15:09)
[2021-01-26 15:13] LABS: ALBUMIN 3.5 g/dl (3.4-5.0); BLOOD UREA NITROGEN 18.4 mg/dL (7-18); CALCIUM 9.4 mg/dL (8.5-10.1)
[2021-01-26 15:17] LABS: CREATININE 1.3 mg/dL (0.55-1.3)
[2021-01-26 15:18] LABS: BILIRUBIN,TOTAL 0.5 mg/dL (0.2-1); TOT PROT 7.5 g/dl (6.4-8.2)
[2021-01-26] MEDS: THIAMINE HCL 100 MG TABLET (FP) PO SCH (23:11)
[2021-01-26] MEDS: MELATONIN 5 MG TABLETS PO SCH (23:12)
[2021-01-27] MEDS: diazePAM 5 MG TABLET PO SCH ×4 (06:08→22:22)
[2021-01-27] MEDS: hydrOXYzine PAMOATE 25 MG CAPSULE (FP) PO SCH ×5 (06:08→22:22)
[2021-01-27] MEDS: PRENATAL VITAMINS W/ FOLIC ACID TABLET (FP) PO SCH (10:43)
[2021-01-27] MEDS: MELATONIN 5 MG TABLETS PO SCH (22:22)
[2021-01-27] MEDS: THIAMINE HCL 100 MG TABLET (FP) PO SCH (22:22)
[2021-01-28] MEDS: hydrOXYzine PAMOATE 25 MG CAPSULE (FP) PO SCH ×5 (06:37→22:41)
[2021-01-28] MEDS: diazePAM 5 MG TABLET PO SCH ×3 (06:37→22:41)
[2021-01-28] MEDS: PRENATAL VITAMINS W/ FOLIC ACID TABLET (FP) PO SCH (10:19)
[2021-01-28] MEDS: THIAMINE HCL 100 MG TABLET (FP) PO SCH (22:41)
[2021-01-28] MEDS: MELATONIN 5 MG TABLETS PO SCH (22:41)
[2021-01-29] MEDS: hydrOXYzine PAMOATE 25 MG CAPSULE (FP) PO SCH ×5 (06:00→23:35)
[2021-01-29] MEDS: diazePAM 5 MG TABLET PO SCH ×2 (06:00→19:07)
[2021-01-29] MEDS: PRENATAL VITAMINS W/ FOLIC ACID TABLET (FP) PO SCH (11:08)
[2021-01-29] MEDS: MELATONIN 5 MG TABLETS PO SCH (23:35)
[2021-01-29] MEDS: THIAMINE HCL 100 MG TABLET (FP) PO SCH (23:35)
[2021-01-30] MEDS ORDERED: diazePAM 5 MG TABLET PO ONE (06:00)
[2021-01-30] MEDS: hydrOXYzine PAMOATE 25 MG CAPSULE (FP) PO SCH ×2 (06:57→12:15)
[2021-01-30 09:16] VITALS: BP 142/84; PULSE 75; TEMP 97.3
[2021-01-30] MEDS: PRENATAL VITAMINS W/ FOLIC ACID TABLET (FP) PO SCH (12:15)
== END 2021-01-30 09:33 | disposition home or self-care (01) | DRG 774 ==
LOC: YASAS 08:26 → Y3N 13:52
PROVIDERS: ADMIT Allergy & Immunology; ATTEND Allergy & Immunology
PROC: HZ2ZZZZ Detoxification Services for Substance Abuse Treatment (ICD-10-PCS; principal; 2021-01-26)
DX: F10.230 Alcohol dependence with withdrawal, uncomplicated (principal); F14.20 Cocaine dependence, uncomplicated; F17.210 Nicotine dependence, cigarettes, uncomplicated; M17.0 Bilateral primary osteoarthritis of knee; Z59.0 Homelessness
CPT/HCPCS: 36415; 80053; 82947; 85027; 86780; C9803; U0003; U0005

== ENCOUNTER 2021-04-26 04:54 | Inpatient (IN) | payer OTHER ==
[2021-04-26 08:30] VITALS: BMI 25.7
[2021-04-26] MEDS ORDERED: METHOCARBAMOL 500 MG TABLET PO PRN (08:43)
[2021-04-26] MEDS ORDERED: MAGNESIUM HYDROX 2400MG/30ML ORAL SUSPENSION 30 ML CUP PO PRN (08:43)
[2021-04-26] MEDS ORDERED: MENTHOL/PHENOL 1 EACH UD MM PRN (08:43)
[2021-04-26] MEDS ORDERED: NICOTINE 10 MG CARTRIDGE (INHALER) IH PRN (08:43)
[2021-04-26] MEDS ORDERED: ONDANSETRON *ODT* 4 MG TABLET SL PRN (08:43)
[2021-04-26] MEDS ORDERED: BISMUTH SUBSALICYLATE 262 MG/15 ML BTL PO PRN (08:43)
[2021-04-26] MEDS ORDERED: MAGNESIUM CITRATE 300 ML BOTTLE PO PRN (08:43)
[2021-04-26] MEDS ORDERED: MAG HYDROX/AL HYDROX/SIMETH 30 ML UNIT-DOSE CUP PO PRN (08:43)
[2021-04-26] MEDS ORDERED: ACETAMINOPHEN 325 MG TABLET (FP) PO PRN ×2 (08:43)
[2021-04-26] MEDS ORDERED: IBUPROFEN 400 MG TABLET (FP) PO PRN (08:43)
[2021-04-26] MEDS ORDERED: hydrOXYzine PAMOATE 25 MG CAPSULE (FP) PO PRN (10:00)
[2021-04-26] MEDS: PRENATAL VITAMINS W/ FOLIC ACID TABLET (FP) PO SCH (10:10)
[2021-04-26 14:35] LABS: HEMATOCRIT 42.8 % (35.4-49); HEMOGLOBIN 14.7 GM/dL (11.7-16.9); MCH 28.7 pg (25.7-33.7); MCHC 34.3 g/dl (32.0-35.9); MEAN CELL VOLUME 83.7 fl (80-96); MEAN PLT VOLUME 7.5 fl (7.5-11.1); PLATELET COUNT 270 10^3/uL (134-434); RBC 5.11 M/mm3 (4.00-5.60); RDW 15.4 % (11.9-15.9); WHITE BLOOD COUNT 5.1 K/mm3 (4.0-10.0)
[2021-04-26 14:41] LABS: CALCIUM 9.7 mg/dL (8.5-10.1)
[2021-04-26 14:42] LABS: CREATININE 1.3 mg/dL (0.55-1.3)
[2021-04-26 14:43] LABS: BILIRUBIN,TOTAL 0.9 mg/dL (0.2-1); TOT PROT 7.9 g/dl (6.4-8.2)
[2021-04-26] MEDS: MELATONIN 5 MG TABLETS PO SCH (22:39)
[2021-04-26] MEDS: THIAMINE HCL 100 MG TABLET (FP) PO SCH (22:39)
[2021-04-27] MEDS ORDERED: chlordiazePOXIDE HCL 25 MG CAPSULE PO PRN ×2 (09:35→09:52)
[2021-04-27] MEDS: chlordiazePOXIDE HCL 25 MG CAPSULE PO SCH ×3 (10:33→22:36)
[2021-04-27] MEDS: PRENATAL VITAMINS W/ FOLIC ACID TABLET (FP) PO SCH (10:33)
[2021-04-27] MEDS ORDERED: chlordiazePOXIDE HCL 25 MG CAPSULE PO SCH (11:00)
[2021-04-27] MEDS: THIAMINE HCL 100 MG TABLET (FP) PO SCH (22:38)
[2021-04-27] MEDS: MELATONIN 5 MG TABLETS PO SCH (22:39)
[2021-04-28] MEDS: chlordiazePOXIDE HCL 25 MG CAPSULE PO SCH ×4 (05:17→22:46)
[2021-04-28] MEDS: PRENATAL VITAMINS W/ FOLIC ACID TABLET (FP) PO SCH (10:31)
[2021-04-28] MEDS: THIAMINE HCL 100 MG TABLET (FP) PO SCH (22:46)
[2021-04-28] MEDS: MELATONIN 5 MG TABLETS PO SCH (22:46)
[2021-04-29] MEDS ORDERED: chlordiazePOXIDE HCL 25 MG CAPSULE PO SCH (05:00)
[2021-04-29] MEDS: chlordiazePOXIDE HCL 25 MG CAPSULE PO SCH ×4 (05:49→22:04)
[2021-04-29] MEDS: PRENATAL VITAMINS W/ FOLIC ACID TABLET (FP) PO SCH (11:00)
[2021-04-29] MEDS: MELATONIN 5 MG TABLETS PO SCH (22:03)
[2021-04-29] MEDS: THIAMINE HCL 100 MG TABLET (FP) PO SCH (22:04)
[2021-04-30] MEDS ORDERED: chlordiazePOXIDE HCL 10 MG CAPSULE PO PRN ×2
[2021-04-30] MEDS ORDERED: chlordiazePOXIDE HCL 10 MG CAPSULE PO SCH (05:00)
[2021-04-30] MEDS: chlordiazePOXIDE HCL 10 MG CAPSULE PO SCH ×2 (06:29→10:53)
[2021-04-30] MEDS: PRENATAL VITAMINS W/ FOLIC ACID TABLET (FP) PO SCH (10:52)
[2021-04-30 11:28] VITALS: BP 110/60; PULSE 78; TEMP 97.1
[2021-05-01] MEDS ORDERED: chlordiazePOXIDE HCL 10 MG CAPSULE PO SCH ×2 (05:00)
[2021-05-02] MEDS ORDERED: chlordiazePOXIDE HCL 10 MG CAPSULE PO ONE ×2 (05:00)
== END 2021-04-30 13:49 | disposition home or self-care (01) | DRG 774 ==
LOC: YASAS 04:54 → Y3N 09:41
PROVIDERS: ADMIT Allergy & Immunology; ATTEND Allergy & Immunology
PROC: HZ2ZZZZ Detoxification Services for Substance Abuse Treatment (ICD-10-PCS; principal; 2021-04-26)
DX: F10.230 Alcohol dependence with withdrawal, uncomplicated (principal); F14.20 Cocaine dependence, uncomplicated; F17.213 Nicotine dependence, cigarettes, with withdrawal; U07.1 COVID-19; I25.2 Old myocardial infarction; M17.0 Bilateral primary osteoarthritis of knee; Z86.16 Personal history of COVID-19; Z86.69 Personal history of other diseases of the nervous system and sense organs; Z56.0 Unemployment, unspecified; Z59.02 Unsheltered homelessness
CPT/HCPCS: 36415; 80053; 85027; 86780; C9803; U0003; U0005

== ENCOUNTER 2021-05-26 13:50 | Inpatient (IN) | payer OTHER ==
[2021-05-26] MEDS ORDERED: MENTHOL/PHENOL 1 EACH UD MM PRN (14:29)
[2021-05-26] MEDS ORDERED: ONDANSETRON *ODT* 4 MG TABLET SL PRN (14:29)
[2021-05-26] MEDS ORDERED: MAG HYDROX/AL HYDROX/SIMETH 30 ML UNIT-DOSE CUP PO PRN (14:29)
[2021-05-26] MEDS ORDERED: ACETAMINOPHEN 325 MG TABLET (FP) PO PRN ×2 (14:29)
[2021-05-26] MEDS ORDERED: MAGNESIUM CITRATE 300 ML BOTTLE PO PRN (14:29)
[2021-05-26] MEDS ORDERED: MAGNESIUM HYDROX 2400MG/30ML ORAL SUSPENSION 30 ML CUP PO PRN (14:29)
[2021-05-26] MEDS ORDERED: diazePAM 5 MG TABLET PO PRN (14:29)
[2021-05-26] MEDS ORDERED: BISMUTH SUBSALICYLATE 524 MG/30 ML PO PRN (14:29)
[2021-05-26] MEDS ORDERED: IBUPROFEN 400 MG TABLET (FP) PO PRN (14:29)
[2021-05-26] MEDS ORDERED: NICOTINE 10 MG CARTRIDGE (INHALER) IH PRN (14:29)
[2021-05-26 15:23] VITALS: BMI 25.4
[2021-05-26 17:31] LABS: ALBUMIN 3.6 g/dl (3.4-5.0)
[2021-05-26 17:32] LABS: HEMATOCRIT 38.8 % (35.4-49); HEMOGLOBIN 13.2 GM/dL (11.7-16.9); MCH 28.7 pg (25.7-33.7); MCHC 34.1 g/dl (32.0-35.9); MEAN PLT VOLUME 7.9 fl (7.5-11.1); PLATELET COUNT 262 10^3/uL (134-434); RBC 4.62 M/mm3 (4.00-5.60); RDW 14.9 % (11.9-15.9); WHITE BLOOD COUNT 4.5 K/mm3 (4.0-10.0)
[2021-05-26 17:34] LABS: CREATININE 1.2 mg/dL (0.55-1.3)
[2021-05-26 17:36] LABS: BILIRUBIN,TOTAL 0.5 mg/dL (0.2-1); TOT PROT 6.8 g/dl (6.4-8.2)
[2021-05-26] MEDS: NICOTINE 14 MG/24 HOURS TOPICAL PATCH TD SCH (21:57)
[2021-05-26] MEDS: hydrOXYzine PAMOATE 25 MG CAPSULE (FP) PO SCH ×2 (21:58→22:30)
[2021-05-26] MEDS: diazePAM 5 MG TABLET PO SCH ×2 (21:58→22:28)
[2021-05-26] MEDS: THIAMINE HCL 100 MG TABLET (FP) PO SCH (22:28)
[2021-05-26] MEDS: MELATONIN 5 MG TABLETS PO SCH (22:29)
[2021-05-26] MEDS: PRENATAL VITAMINS W/ FOLIC ACID TABLET (FP) PO SCH (22:29)
[2021-05-27] MEDS: hydrOXYzine PAMOATE 25 MG CAPSULE (FP) PO SCH ×5 (05:47→23:16)
[2021-05-27] MEDS: diazePAM 5 MG TABLET PO SCH ×4 (05:47→23:16)
[2021-05-27] MEDS: PRENATAL VITAMINS W/ FOLIC ACID TABLET (FP) PO SCH (10:31)
[2021-05-27] MEDS: NICOTINE 14 MG/24 HOURS TOPICAL PATCH TD SCH (10:33)
[2021-05-27] MEDS: MELATONIN 5 MG TABLETS PO SCH (23:16)
[2021-05-27] MEDS: THIAMINE HCL 100 MG TABLET (FP) PO SCH (23:17)
[2021-05-28] MEDS: hydrOXYzine PAMOATE 25 MG CAPSULE (FP) PO SCH ×5 (07:27→23:01)
[2021-05-28] MEDS: diazePAM 5 MG TABLET PO SCH ×3 (07:27→23:00)
[2021-05-28] MEDS: NICOTINE 14 MG/24 HOURS TOPICAL PATCH TD SCH (10:28)
[2021-05-28] MEDS: PRENATAL VITAMINS W/ FOLIC ACID TABLET (FP) PO SCH (10:28)
[2021-05-28] MEDS: METHOCARBAMOL 500 MG TABLET PO PRN (10:29)
[2021-05-28] MEDS: MELATONIN 5 MG TABLETS PO SCH (23:00)
[2021-05-28] MEDS: THIAMINE HCL 100 MG TABLET (FP) PO SCH (23:01)
[2021-05-29] MEDS: hydrOXYzine PAMOATE 25 MG CAPSULE (FP) PO SCH ×5 (05:52→22:40)
[2021-05-29] MEDS: diazePAM 5 MG TABLET PO SCH ×2 (05:52→18:11)
[2021-05-29] MEDS: NICOTINE 14 MG/24 HOURS TOPICAL PATCH TD SCH (10:40)
[2021-05-29] MEDS: METHOCARBAMOL 500 MG TABLET PO PRN (10:40)
[2021-05-29] MEDS: PRENATAL VITAMINS W/ FOLIC ACID TABLET (FP) PO SCH (10:40)
[2021-05-29] MEDS: MELATONIN 5 MG TABLETS PO SCH (22:39)
[2021-05-29] MEDS: THIAMINE HCL 100 MG TABLET (FP) PO SCH (22:40)
[2021-05-30] MEDS: hydrOXYzine PAMOATE 25 MG CAPSULE (FP) PO SCH ×2 (05:42→10:22)
[2021-05-30] MEDS ORDERED: diazePAM 5 MG TABLET PO ONE (06:00)
[2021-05-30 08:58] VITALS: BP 101/60; PULSE 81; TEMP 98.6
[2021-05-30] MEDS: PRENATAL VITAMINS W/ FOLIC ACID TABLET (FP) PO SCH (10:22)
[2021-05-30] MEDS: NICOTINE 14 MG/24 HOURS TOPICAL PATCH TD SCH (10:22)
== END 2021-05-30 09:58 | disposition other institution (70) | DRG 774 ==
LOC: YASAS 13:50 → Y6N 19:56
PROVIDERS: ADMIT Allergy & Immunology; ATTEND Allergy & Immunology
PROC: HZ2ZZZZ Detoxification Services for Substance Abuse Treatment (ICD-10-PCS; principal; 2021-05-26)
DX: F10.230 Alcohol dependence with withdrawal, uncomplicated (principal); F14.20 Cocaine dependence, uncomplicated; F17.213 Nicotine dependence, cigarettes, with withdrawal; M17.0 Bilateral primary osteoarthritis of knee; Z59.02 Unsheltered homelessness
CPT/HCPCS: 36415; 80053; 85027; 86780; C9803; U0003; U0005

== ENCOUNTER 2021-06-28 00:39 | Inpatient (IN) | payer OTHER ==
[2021-06-28 00:56] VITALS: BMI 24.8
[2021-06-28] MEDS ORDERED: MAGNESIUM HYDROX 2400MG/30ML ORAL SUSPENSION 30 ML CUP PO PRN (01:24)
[2021-06-28] MEDS ORDERED: MAG HYDROX/AL HYDROX/SIMETH 30 ML UNIT-DOSE CUP PO PRN (01:24)
[2021-06-28] MEDS ORDERED: ONDANSETRON *ODT* 4 MG TABLET SL PRN (01:24)
[2021-06-28] MEDS ORDERED: MENTHOL/PHENOL 1 EACH UD MM PRN (01:24)
[2021-06-28] MEDS ORDERED: BISMUTH SUBSALICYLATE 524 MG/30 ML PO PRN (01:24)
[2021-06-28] MEDS ORDERED: LOPERAMIDE HCL 2 MG CAPSULE PO PRN (01:24)
[2021-06-28] MEDS ORDERED: ACETAMINOPHEN 325 MG TABLET (FP) PO PRN ×2 (01:24)
[2021-06-28] MEDS ORDERED: IBUPROFEN 400 MG TABLET (FP) PO PRN (01:24)
[2021-06-28] MEDS ORDERED: NICOTINE POLACRILEX 2 MG GUM BUC PRN (01:24)
[2021-06-28] MEDS ORDERED: chlordiazePOXIDE HCL 25 MG CAPSULE PO PRN (01:24)
[2021-06-28] MEDS ORDERED: MAGNESIUM CITRATE 300 ML BOTTLE PO PRN (01:24)
[2021-06-28] MEDS: chlordiazePOXIDE HCL 25 MG CAPSULE PO SCH ×4 (06:00→23:23)
[2021-06-28] MEDS: PRENATAL VITAMINS W/ FOLIC ACID TABLET (FP) PO SCH (10:35)
[2021-06-28] MEDS: METHOCARBAMOL 500 MG TABLET PO PRN (10:35)
[2021-06-28] MEDS: NICOTINE 21 MG/24 HOURS TOPICAL PATCH TD SCH (10:37)
[2021-06-28 14:19] LABS: HEMOGLOBIN 12.2 GM/dL (11.7-16.9); MCH 27.9 pg (25.7-33.7); MEAN CELL VOLUME 84.3 fl (80-96); MEAN PLT VOLUME 7.7 fl (7.5-11.1); PLATELET COUNT 259 10^3/uL (134-434); RBC 4.39 M/mm3 (4.00-5.60); RDW 14.9 % (11.9-15.9); WHITE BLOOD COUNT 3.7 K/mm3 (4.0-10.0)
[2021-06-28 14:37] LABS: CALCIUM 9.2 mg/dL (8.5-10.1)
[2021-06-28 14:38] LABS: ALBUMIN 3.2 g/dl (3.4-5.0)
[2021-06-28 14:40] LABS: CREATININE 1.3 mg/dL (0.55-1.3)
[2021-06-28 14:42] LABS: BILIRUBIN,TOTAL 0.6 mg/dL (0.2-1); TOT PROT 6.3 g/dl (6.4-8.2)
[2021-06-28] MEDS: THIAMINE HCL 100 MG TABLET (FP) PO SCH (23:23)
[2021-06-28] MEDS: MELATONIN 5 MG TABLETS PO SCH (23:23)
[2021-06-29] MEDS: chlordiazePOXIDE HCL 25 MG CAPSULE PO SCH ×5 (06:42→23:09)
[2021-06-29] MEDS: METHOCARBAMOL 500 MG TABLET PO PRN (10:57)
[2021-06-29] MEDS: PRENATAL VITAMINS W/ FOLIC ACID TABLET (FP) PO SCH (10:57)
[2021-06-29] MEDS: NICOTINE 21 MG/24 HOURS TOPICAL PATCH TD SCH (10:58)
[2021-06-29] MEDS: MELATONIN 5 MG TABLETS PO SCH (22:47)
[2021-06-29] MEDS: THIAMINE HCL 100 MG TABLET (FP) PO SCH (22:48)
[2021-06-30] MEDS ORDERED: chlordiazePOXIDE HCL 10 MG CAPSULE PO PRN
[2021-06-30] MEDS: chlordiazePOXIDE HCL 10 MG CAPSULE PO SCH ×4 (06:50→23:53)
[2021-06-30] MEDS: PRENATAL VITAMINS W/ FOLIC ACID TABLET (FP) PO SCH (10:57)
[2021-06-30] MEDS: NICOTINE 21 MG/24 HOURS TOPICAL PATCH TD SCH (10:57)
[2021-06-30] MEDS: MELATONIN 5 MG TABLETS PO SCH (23:53)
[2021-06-30] MEDS: THIAMINE HCL 100 MG TABLET (FP) PO SCH (23:53)
[2021-07-01] MEDS ORDERED: chlordiazePOXIDE HCL 10 MG CAPSULE PO SCH (05:00)
[2021-07-01 10:01] VITALS: BP 122/69; PULSE 77; TEMP 97.5
[2021-07-01] MEDS: NICOTINE 21 MG/24 HOURS TOPICAL PATCH TD SCH (11:01)
[2021-07-01] MEDS: PRENATAL VITAMINS W/ FOLIC ACID TABLET (FP) PO SCH (11:01)
[2021-07-01 16:09] LABS: SARS-CoV-2 NAA Not Detected (Not Detected)
[2021-07-02] MEDS ORDERED: chlordiazePOXIDE HCL 10 MG CAPSULE PO ONE (05:00)
== END 2021-07-01 17:35 | disposition other institution (70) | DRG 774 ==
LOC: YASAS 00:39 → Y6N 01:57
PROVIDERS: ADMIT Allergy & Immunology; ATTEND Allergy & Immunology
PROC: HZ2ZZZZ Detoxification Services for Substance Abuse Treatment (ICD-10-PCS; principal; 2021-06-28)
DX: F10.230 Alcohol dependence with withdrawal, uncomplicated (principal); F14.20 Cocaine dependence, uncomplicated; F17.210 Nicotine dependence, cigarettes, uncomplicated; F32.A Depression, unspecified; M17.0 Bilateral primary osteoarthritis of knee; I25.2 Old myocardial infarction; Z86.19 Personal history of other infectious and parasitic diseases; Z56.0 Unemployment, unspecified; Z59.01 Sheltered homelessness
CPT/HCPCS: 36415; 80053; 85027; 86780; 87811; 93005; 93010; C9803; U0003; U0005

== ENCOUNTER 2021-07-01 18:05 | Inpatient (IN) | payer OTHER ==
[2021-07-01] MEDS ORDERED: MELATONIN 5 MG TABLETS PO SCH (22:00)
[2021-07-01] MEDS ORDERED: MENTHOL/PHENOL 1 EACH UD MM PRN (22:49)
[2021-07-01] MEDS ORDERED: LOPERAMIDE HCL 2 MG CAPSULE PO PRN (22:49)
[2021-07-01] MEDS ORDERED: ACETAMINOPHEN 325 MG TABLET (FP) PO PRN (22:49)
[2021-07-01] MEDS ORDERED: P-EPHED 60MG/TRIPROLIDI 2.5MG TABLET PO PRN (22:49)
[2021-07-01] MEDS ORDERED: guaiFENesin 200 MG/10 ML 10 ML UNIT-DOSE CUPS PO PRN (22:49)
[2021-07-01] MEDS ORDERED: MAGNESIUM CITRATE 300 ML BOTTLE PO PRN (22:49)
[2021-07-01] MEDS ORDERED: NICOTINE POLACRILEX 2 MG GUM BUC PRN (22:49)
[2021-07-01] MEDS ORDERED: MAGNESIUM HYDROX 2400MG/30ML ORAL SUSPENSION 30 ML CUP PO PRN (22:49)
[2021-07-01] MEDS ORDERED: IBUPROFEN 400 MG TABLET (FP) PO PRN (22:49)
[2021-07-01] MEDS ORDERED: hydrOXYzine PAMOATE 25 MG CAPSULE (FP) PO PRN (22:49)
[2021-07-01] MEDS ORDERED: MAG HYDROX/AL HYDROX/SIMETH 30 ML UNIT-DOSE CUP PO PRN (22:49)
[2021-07-02 07:24] VITALS: BP 117/77; PULSE 70; TEMP 98.6
[2021-07-02] MEDS ORDERED: NICOTINE 14 MG/24 HOURS TOPICAL PATCH TD SCH (10:00)
[2021-07-02] MEDS ORDERED: PRENATAL VITAMINS W/ FOLIC ACID TABLET (FP) PO SCH (10:00)
[2021-07-02] MEDS ORDERED: THIAMINE HCL 100 MG TABLET (FP) PO SCH (22:00)
== END 2021-07-02 09:40 | disposition home or self-care (01) | DRG 772 ==
LOC: YASAS 18:05 → Y3W 18:07
PROVIDERS: ADMIT Allergy & Immunology; ATTEND Allergy & Immunology
PROC: HZ42ZZZ Group Counseling for Substance Abuse Treatment, Cognitive-Behavioral (ICD-10-PCS; principal; 2021-07-01)
DX: F10.20 Alcohol dependence, uncomplicated (principal); F14.20 Cocaine dependence, uncomplicated; F17.210 Nicotine dependence, cigarettes, uncomplicated; I25.2 Old myocardial infarction

== ENCOUNTER 2021-07-09 00:12 | Inpatient (IN) | payer OTHER ==
[2021-07-09] MEDS ORDERED: MAGNESIUM CITRATE 300 ML BOTTLE PO PRN (03:04)
[2021-07-09] MEDS ORDERED: METHOCARBAMOL 500 MG TABLET PO PRN (03:04)
[2021-07-09] MEDS ORDERED: LOPERAMIDE HCL 2 MG CAPSULE PO PRN (03:04)
[2021-07-09] MEDS ORDERED: NICOTINE POLACRILEX 2 MG GUM BUC PRN (03:04)
[2021-07-09] MEDS ORDERED: ACETAMINOPHEN 325 MG TABLET (FP) PO PRN ×2 (03:04)
[2021-07-09] MEDS ORDERED: MAG HYDROX/AL HYDROX/SIMETH 30 ML UNIT-DOSE CUP PO PRN (03:04)
[2021-07-09] MEDS ORDERED: MAGNESIUM HYDROX 2400MG/30ML ORAL SUSPENSION 30 ML CUP PO PRN (03:04)
[2021-07-09] MEDS ORDERED: MENTHOL/PHENOL 1 EACH UD MM PRN (03:04)
[2021-07-09] MEDS ORDERED: BISMUTH SUBSALICYLATE 524 MG/30 ML PO PRN (03:04)
[2021-07-09] MEDS ORDERED: ONDANSETRON *ODT* 4 MG TABLET SL PRN (03:04)
[2021-07-09] MEDS ORDERED: IBUPROFEN 400 MG TABLET (FP) PO PRN (03:04)
[2021-07-09] MEDS: PRENATAL VITAMINS W/ FOLIC ACID TABLET (FP) PO SCH (11:03)
[2021-07-09] MEDS: NICOTINE 21 MG/24 HOURS TOPICAL PATCH TD SCH (11:04)
[2021-07-09] MEDS ORDERED: MELATONIN 5 MG TABLETS PO SCH (22:00)
[2021-07-09] MEDS ORDERED: THIAMINE HCL 100 MG TABLET (FP) PO SCH (22:00)
[2021-07-10 07:35] VITALS: PULSE 70
[2021-07-10] MEDS: NICOTINE 21 MG/24 HOURS TOPICAL PATCH TD SCH (11:19)
[2021-07-10] MEDS: PRENATAL VITAMINS W/ FOLIC ACID TABLET (FP) PO SCH (11:19)
[2021-07-10 11:31] VITALS: BP 117/78; TEMP 97.7
[2021-07-12 00:08] LABS: SARS-CoV-2 NAA Not Detected (Not Detected)
== END 2021-07-10 13:10 | disposition home or self-care (01) | DRG 774 ==
LOC: YASAS 00:12 → Y6N 11:22
PROVIDERS: ADMIT Allergy & Immunology; ATTEND Allergy & Immunology
PROC: HZ2ZZZZ Detoxification Services for Substance Abuse Treatment (ICD-10-PCS; principal; 2021-07-09)
DX: F10.230 Alcohol dependence with withdrawal, uncomplicated (principal); F14.20 Cocaine dependence, uncomplicated; F17.213 Nicotine dependence, cigarettes, with withdrawal; M17.11 Unilateral primary osteoarthritis, right knee; Z56.0 Unemployment, unspecified; Z59.00 Homelessness unspecified
CPT/HCPCS: 93005; 93010; C9803; U0003; U0005

== ENCOUNTER 2021-08-13 02:39 | Inpatient (IN) | payer OTHER ==
[2021-08-13] MEDS ORDERED: ACETAMINOPHEN 325 MG TABLET (FP) PO PRN (02:54)
[2021-08-13] MEDS ORDERED: BISMUTH SUBSALICYLATE 524 MG/30 ML PO PRN (02:54)
[2021-08-13] MEDS ORDERED: METHOCARBAMOL 500 MG TABLET PO PRN (02:54)
[2021-08-13] MEDS ORDERED: LOPERAMIDE HCL 2 MG CAPSULE PO PRN (02:54)
[2021-08-13] MEDS ORDERED: ONDANSETRON *ODT* 4 MG TABLET SL PRN (02:54)
[2021-08-13] MEDS ORDERED: P-EPHED 60MG/TRIPROLIDI 2.5MG TABLET PO PRN (02:54)
[2021-08-13] MEDS ORDERED: guaiFENesin 200 MG/10 ML 10 ML UNIT-DOSE CUPS PO PRN (02:54)
[2021-08-13] MEDS ORDERED: MAGNESIUM CITRATE 300 ML BOTTLE PO PRN (02:54)
[2021-08-13] MEDS ORDERED: NICOTINE POLACRILEX 4 MG GUM BUC PRN (02:54)
[2021-08-13] MEDS ORDERED: MAGNESIUM HYDROX 2400MG/30ML ORAL SUSPENSION 30 ML CUP PO PRN (02:54)
[2021-08-13] MEDS ORDERED: hydrOXYzine PAMOATE 25 MG CAPSULE (FP) PO PRN (02:54)
[2021-08-13] MEDS ORDERED: MAG HYDROX/AL HYDROX/SIMETH 30 ML UNIT-DOSE CUP PO PRN (02:54)
[2021-08-13] MEDS ORDERED: BENZOCAINE/MENTHOL (CHLORASEPTIC ) LOZENGE MM PRN (02:54)
[2021-08-13] MEDS ORDERED: DICYCLOMINE HCL 10 MG CAPSULE PO PRN (02:54)
[2021-08-13 03:21] VITALS: BMI 24.3
[2021-08-13] MEDS ORDERED: IBUPROFEN 400 MG TABLET (FP) PO ONE (06:47)
[2021-08-13] MEDS: IBUPROFEN 400 MG TABLET (FP) PO PRN ×2 (06:49→17:58)
[2021-08-13] MEDS ORDERED: chlordiazePOXIDE HCL 25 MG CAPSULE PO PRN (10:03)
[2021-08-13] MEDS: PRENATAL VITAMINS W/ FOLIC ACID TABLET (FP) PO SCH (11:00)
[2021-08-13] MEDS: chlordiazePOXIDE HCL 25 MG CAPSULE PO SCH ×3 (11:57→23:11)
[2021-08-13] MEDS ORDERED: chlordiazePOXIDE HCL 25 MG CAPSULE ONE (11:58)
[2021-08-13] MEDS: NICOTINE 21 MG/24 HOURS TOPICAL PATCH TD SCH (13:18)
[2021-08-13] MEDS: THIAMINE HCL 100 MG TABLET (FP) PO SCH (23:11)
[2021-08-13] MEDS: MELATONIN 5 MG TABLETS PO SCH (23:11)
[2021-08-14] MEDS: IBUPROFEN 400 MG TABLET (FP) PO PRN ×2 (06:00→17:51)
[2021-08-14] MEDS: chlordiazePOXIDE HCL 25 MG CAPSULE PO SCH ×4 (06:01→23:07)
[2021-08-14] MEDS: PRENATAL VITAMINS W/ FOLIC ACID TABLET (FP) PO SCH (10:22)
[2021-08-14] MEDS: ACETAMINOPHEN 325 MG TABLET (FP) PO PRN (10:23)
[2021-08-14] MEDS: NICOTINE 21 MG/24 HOURS TOPICAL PATCH TD SCH (10:43)
[2021-08-14 13:00] LABS: HEMATOCRIT 37.6 % (35.4-49); HEMOGLOBIN 12.7 GM/dL (11.7-16.9); MCH 28.3 pg (25.7-33.7); MCHC 33.7 g/dl (32.0-35.9); MEAN PLT VOLUME 7.7 fl (7.5-11.1); PLATELET COUNT 222 10^3/uL (134-434); RBC 4.48 M/mm3 (4.00-5.60); RDW 15.7 % (11.9-15.9); WHITE BLOOD COUNT 2.3 K/mm3 (4.0-10.0)
[2021-08-14 13:06] LABS: BLOOD UREA NITROGEN 12.9 mg/dL (7-18); CALCIUM 8.7 mg/dL (8.5-10.1); CREATININE 0.9 mg/dL (0.55-1.3)
[2021-08-14 13:10] LABS: TOT PROT 5.8 g/dl (6.4-8.2)
[2021-08-14] MEDS: MELATONIN 5 MG TABLETS PO SCH (23:07)
[2021-08-14] MEDS: THIAMINE HCL 100 MG TABLET (FP) PO SCH (23:07)
[2021-08-15] MEDS: IBUPROFEN 400 MG TABLET (FP) PO PRN (04:02)
[2021-08-15] MEDS: chlordiazePOXIDE HCL 25 MG CAPSULE PO SCH ×2 (07:34→10:31)
[2021-08-15] MEDS: PRENATAL VITAMINS W/ FOLIC ACID TABLET (FP) PO SCH (10:30)
[2021-08-15] MEDS: ACETAMINOPHEN 325 MG TABLET (FP) PO PRN (10:33)
[2021-08-15] MEDS: NICOTINE 21 MG/24 HOURS TOPICAL PATCH TD SCH (10:37)
[2021-08-15] MEDS ORDERED: ACETAMINOPHEN 325 MG TABLET (FP) PO ONE (10:45)
[2021-08-15 12:13] LABS: EOS % 6.4 % (0-4.5); HEMATOCRIT 38.4 % (35.4-49); HEMOGLOBIN 12.9 GM/dL (11.7-16.9); LYMPH % 53.6 % (8-40); MCH 28.2 pg (25.7-33.7); MCHC 33.6 g/dl (32.0-35.9); MEAN CELL VOLUME 84.1 fl (80-96); MEAN PLT VOLUME 7.8 fl (7.5-11.1); MONO % 16.7 % (3.8-10.2); NEUT % 22.3 % (42.8-82.8); PLATELET COUNT 229 10^3/uL (134-434); RBC 4.57 M/mm3 (4.00-5.60); RDW 15.5 % (11.9-15.9); WHITE BLOOD COUNT 2.9 K/mm3 (4.0-10.0)
[2021-08-15 13:13] VITALS: BP 130/74; PULSE 87; TEMP 97.9
[2021-08-16] MEDS ORDERED: chlordiazePOXIDE HCL 10 MG CAPSULE PO PRN
[2021-08-16] MEDS ORDERED: chlordiazePOXIDE HCL 10 MG CAPSULE PO SCH (05:00)
[2021-08-17] MEDS ORDERED: chlordiazePOXIDE HCL 10 MG CAPSULE PO SCH (05:00)
[2021-08-18] MEDS ORDERED: chlordiazePOXIDE HCL 10 MG CAPSULE PO ONE (05:00)
== END 2021-08-15 14:18 | disposition left against medical advice (07) | DRG 770 ==
LOC: YASAS 02:39 → UNDOADMIN 12:09 → Y6N 12:09
PROVIDERS: ADMIT Allergy & Immunology; ATTEND Allergy & Immunology
PROC: HZ2ZZZZ Detoxification Services for Substance Abuse Treatment (ICD-10-PCS; principal; 2021-08-13)
DX: F10.230 Alcohol dependence with withdrawal, uncomplicated (principal); F14.20 Cocaine dependence, uncomplicated; F17.210 Nicotine dependence, cigarettes, uncomplicated; F19.24 Other psychoactive substance dependence with psychoactive substance-induced mood disorder; D72.819 Decreased white blood cell count, unspecified; M17.11 Unilateral primary osteoarthritis, right knee; Z86.19 Personal history of other infectious and parasitic diseases; Z59.01 Sheltered homelessness
CPT/HCPCS: 36415; 80053; 85025; 85027; 86780; 87811; 93005; 93010; C9803-CS; U0003; U0005

== ENCOUNTER 2021-08-21 01:56 | Inpatient (IN) | payer OTHER ==
[2021-08-21 02:18] VITALS: BMI 22.9
[2021-08-21] MEDS ORDERED: MAGNESIUM HYDROX 2400MG/30ML ORAL SUSPENSION 30 ML CUP PO PRN (02:30)
[2021-08-21] MEDS ORDERED: ACETAMINOPHEN 325 MG TABLET (FP) PO PRN (02:30)
[2021-08-21] MEDS ORDERED: ONDANSETRON *ODT* 4 MG TABLET SL PRN (02:30)
[2021-08-21] MEDS ORDERED: BENZOCAINE/MENTHOL (CHLORASEPTIC ) LOZENGE MM PRN (02:30)
[2021-08-21] MEDS ORDERED: DICYCLOMINE HCL 10 MG CAPSULE PO PRN (02:30)
[2021-08-21] MEDS ORDERED: MAG HYDROX/AL HYDROX/SIMETH 30 ML UNIT-DOSE CUP PO PRN (02:30)
[2021-08-21] MEDS ORDERED: LOPERAMIDE HCL 2 MG CAPSULE PO PRN (02:30)
[2021-08-21] MEDS ORDERED: NICOTINE 10 MG CARTRIDGE (INHALER) IH PRN (02:30)
[2021-08-21] MEDS ORDERED: BISMUTH SUBSALICYLATE 524 MG/30 ML PO PRN (02:30)
[2021-08-21] MEDS ORDERED: MAGNESIUM CITRATE 300 ML BOTTLE PO PRN (02:30)
[2021-08-21] MEDS: IBUPROFEN 400 MG TABLET (FP) PO PRN ×2 (03:39→18:17)
[2021-08-21] MEDS: METHOCARBAMOL 500 MG TABLET PO PRN ×3 (03:39→22:27)
[2021-08-21] MEDS: hydrOXYzine PAMOATE 25 MG CAPSULE (FP) PO SCH ×5 (07:44→22:27)
[2021-08-21] MEDS: PRENATAL VITAMINS W/ FOLIC ACID TABLET (FP) PO SCH (11:42)
[2021-08-21] MEDS: THIAMINE HCL 100 MG TABLET (FP) PO SCH (22:27)
[2021-08-21] MEDS: MELATONIN 5 MG TABLETS PO SCH (22:27)
[2021-08-21] MEDS: ACETAMINOPHEN 325 MG TABLET (FP) PO PRN (22:28)
[2021-08-22] MEDS: IBUPROFEN 400 MG TABLET (FP) PO PRN ×2 (02:31→23:21)
[2021-08-22] MEDS: hydrOXYzine PAMOATE 25 MG CAPSULE (FP) PO SCH ×4 (06:26→23:22)
[2021-08-22] MEDS: PRENATAL VITAMINS W/ FOLIC ACID TABLET (FP) PO SCH (10:09)
[2021-08-22] MEDS: METHOCARBAMOL 500 MG TABLET PO PRN (10:09)
[2021-08-22] MEDS: ACETAMINOPHEN 325 MG TABLET (FP) PO PRN ×2 (10:09→16:31)
[2021-08-22 11:28] LABS: HEMATOCRIT 41.4 % (35.4-49); HEMOGLOBIN 13.6 GM/dL (11.7-16.9); MCHC 32.9 g/dl (32.0-35.9); MEAN PLT VOLUME 8.3 fl (7.5-11.1); PLATELET COUNT 222 10^3/uL (134-434); RBC 4.87 M/mm3 (4.00-5.60); RDW 15.8 % (11.9-15.9); WHITE BLOOD COUNT 7.9 K/mm3 (4.0-10.0)
[2021-08-22 11:44] LABS: CALCIUM 9.1 mg/dL (8.5-10.1)
[2021-08-22 11:45] LABS: ALBUMIN 3.4 g/dl (3.4-5.0); BLOOD UREA NITROGEN 15.6 mg/dL (7-18)
[2021-08-22 11:48] LABS: CREATININE 1.1 mg/dL (0.55-1.3)
[2021-08-22 11:49] LABS: TOT PROT 6.6 g/dl (6.4-8.2)
[2021-08-22 11:50] LABS: BILIRUBIN,TOTAL 0.4 mg/dL (0.2-1)
[2021-08-22] MEDS: THIAMINE HCL 100 MG TABLET (FP) PO SCH (23:22)
[2021-08-22] MEDS: MELATONIN 5 MG TABLETS PO SCH (23:47)
[2021-08-23] MEDS: IBUPROFEN 400 MG TABLET (FP) PO PRN (05:59)
[2021-08-23] MEDS: hydrOXYzine PAMOATE 25 MG CAPSULE (FP) PO SCH ×2 (06:00→10:30)
[2021-08-23 09:31] VITALS: BP 116/66; PULSE 86; TEMP 98.4
[2021-08-23] MEDS: PRENATAL VITAMINS W/ FOLIC ACID TABLET (FP) PO SCH (10:30)
== END 2021-08-23 10:00 | disposition home or self-care (01) | DRG 774 ==
LOC: YASAS 01:56 → Y6N 02:50
PROVIDERS: ADMIT Allergy & Immunology; ATTEND Allergy & Immunology
PROC: HZ2ZZZZ Detoxification Services for Substance Abuse Treatment (ICD-10-PCS; principal; 2021-08-21)
DX: F10.230 Alcohol dependence with withdrawal, uncomplicated (principal); F14.20 Cocaine dependence, uncomplicated; F17.210 Nicotine dependence, cigarettes, uncomplicated; B02.29 Other postherpetic nervous system involvement; M17.11 Unilateral primary osteoarthritis, right knee; I25.2 Old myocardial infarction
CPT/HCPCS: 36415; 80053; 85027; 86780; 87811; C9803-CS; U0003; U0005

== ENCOUNTER 2021-08-29 00:51 | Inpatient (IN) | payer OTHER ==
[2021-08-29] MEDS ORDERED: IBUPROFEN 400 MG TABLET (FP) PO PRN (01:52)
[2021-08-29] MEDS ORDERED: DICYCLOMINE HCL 10 MG CAPSULE PO PRN (01:52)
[2021-08-29] MEDS ORDERED: ONDANSETRON *ODT* 4 MG TABLET SL PRN (01:52)
[2021-08-29] MEDS ORDERED: LOPERAMIDE HCL 2 MG CAPSULE PO PRN (01:52)
[2021-08-29] MEDS ORDERED: MAGNESIUM CITRATE 300 ML BOTTLE PO PRN (01:52)
[2021-08-29] MEDS ORDERED: BENZOCAINE/MENTHOL (CHLORASEPTIC ) LOZENGE MM PRN (01:52)
[2021-08-29] MEDS ORDERED: MAG HYDROX/AL HYDROX/SIMETH 30 ML UNIT-DOSE CUP PO PRN (01:52)
[2021-08-29] MEDS ORDERED: METHOCARBAMOL 500 MG TABLET PO PRN (01:52)
[2021-08-29] MEDS ORDERED: ACETAMINOPHEN 325 MG TABLET (FP) PO PRN ×2 (01:52)
[2021-08-29] MEDS ORDERED: BISMUTH SUBSALICYLATE 524 MG/30 ML PO PRN (01:52)
[2021-08-29] MEDS ORDERED: MAGNESIUM HYDROX 2400MG/30ML ORAL SUSPENSION 30 ML CUP PO PRN (01:52)
[2021-08-29] MEDS: PRENATAL VITAMINS W/ FOLIC ACID TABLET (FP) PO SCH (10:05)
[2021-08-29] MEDS ORDERED: MELATONIN 5 MG TABLETS PO SCH (22:00)
[2021-08-29] MEDS ORDERED: THIAMINE HCL 100 MG TABLET (FP) PO SCH (22:00)
[2021-08-30] MEDS: PRENATAL VITAMINS W/ FOLIC ACID TABLET (FP) PO SCH (10:58)
[2021-08-30 13:07] VITALS: BP 130/76; PULSE 73; TEMP 98.4
[2021-08-31 10:07] LABS: SARS-CoV-2 NAA Not Detected (Not Detected)
== END 2021-08-30 13:16 | disposition home or self-care (01) | DRG 774 ==
LOC: YASAS 00:51 → Y6N 02:06 → Y3N 02:11
PROVIDERS: ADMIT Allergy & Immunology; ATTEND Allergy & Immunology
PROC: HZ2ZZZZ Detoxification Services for Substance Abuse Treatment (ICD-10-PCS; principal; 2021-08-29)
DX: F10.230 Alcohol dependence with withdrawal, uncomplicated (principal); F14.20 Cocaine dependence, uncomplicated; F17.210 Nicotine dependence, cigarettes, uncomplicated; F32.A Depression, unspecified; M17.11 Unilateral primary osteoarthritis, right knee; I25.2 Old myocardial infarction; Z86.19 Personal history of other infectious and parasitic diseases; Z56.0 Unemployment, unspecified; Z59.00 Homelessness unspecified
CPT/HCPCS: C9803-CS; U0003; U0005

== ENCOUNTER 2021-09-08 01:47 | Inpatient (IN) | payer OTHER ==
[2021-09-08 02:02] VITALS: BMI 22.8
[2021-09-08] MEDS ORDERED: LOPERAMIDE HCL 2 MG CAPSULE PO PRN (02:03)
[2021-09-08] MEDS ORDERED: BENZOCAINE/MENTHOL (CHLORASEPTIC ) LOZENGE MM PRN (02:03)
[2021-09-08] MEDS ORDERED: ACETAMINOPHEN 325 MG TABLET (FP) PO PRN (02:03)
[2021-09-08] MEDS ORDERED: MAGNESIUM HYDROX 2400MG/30ML ORAL SUSPENSION 30 ML CUP PO PRN (02:03)
[2021-09-08] MEDS ORDERED: P-EPHED 60MG/TRIPROLIDI 2.5MG TABLET PO PRN (02:03)
[2021-09-08] MEDS ORDERED: BISMUTH SUBSALICYLATE 524 MG/30 ML PO PRN (02:03)
[2021-09-08] MEDS ORDERED: NICOTINE POLACRILEX 4 MG GUM BUC PRN (02:03)
[2021-09-08] MEDS ORDERED: guaiFENesin 200 MG/10 ML 10 ML UNIT-DOSE CUPS PO PRN (02:03)
[2021-09-08] MEDS ORDERED: MAGNESIUM CITRATE 300 ML BOTTLE PO PRN (02:03)
[2021-09-08] MEDS ORDERED: MAG HYDROX/AL HYDROX/SIMETH 30 ML UNIT-DOSE CUP PO PRN (02:03)
[2021-09-08] MEDS ORDERED: ONDANSETRON *ODT* 4 MG TABLET SL PRN (02:03)
[2021-09-08] MEDS ORDERED: DICYCLOMINE HCL 10 MG CAPSULE PO PRN (02:03)
[2021-09-08] MEDS: IBUPROFEN 400 MG TABLET (FP) PO PRN ×2 (05:56→11:04)
[2021-09-08] MEDS: PRENATAL VITAMINS W/ FOLIC ACID TABLET (FP) PO SCH ×2 (10:58→11:03)
[2021-09-08] MEDS: NICOTINE 21 MG/24 HOURS TOPICAL PATCH TD SCH (10:58)
[2021-09-08] MEDS: METHOCARBAMOL 500 MG TABLET PO PRN (11:03)
[2021-09-08] MEDS: hydrOXYzine PAMOATE 25 MG CAPSULE (FP) PO PRN (11:04)
[2021-09-08 13:17] LABS: HEMOGLOBIN 13.7 GM/dL (11.7-16.9); MCH 28.4 pg (25.7-33.7); MCHC 34.2 g/dl (32.0-35.9); MEAN CELL VOLUME 83.1 fl (80-96); MEAN PLT VOLUME 7.5 fl (7.5-11.1); PLATELET COUNT 302 10^3/uL (134-434); RBC 4.82 M/mm3 (4.00-5.60); RDW 15.8 % (11.9-15.9)
[2021-09-08 13:27] LABS: CALCIUM 9.7 mg/dL (8.5-10.1)
[2021-09-08 13:28] LABS: ALBUMIN 3.8 g/dl (3.4-5.0)
[2021-09-08 13:29] LABS: BLOOD UREA NITROGEN 19.2 mg/dL (7-18)
[2021-09-08 13:32] LABS: CREATININE 1.2 mg/dL (0.55-1.3)
[2021-09-08 13:33] LABS: BILIRUBIN,TOTAL 0.8 mg/dL (0.2-1); TOT PROT 7.2 g/dl (6.4-8.2)
[2021-09-08] MEDS: MELATONIN 5 MG TABLETS PO SCH (23:08)
[2021-09-08] MEDS: THIAMINE HCL 100 MG TABLET (FP) PO SCH (23:08)
[2021-09-09] MEDS: IBUPROFEN 400 MG TABLET (FP) PO PRN ×3 (06:16→20:12)
[2021-09-09] MEDS: METHOCARBAMOL 500 MG TABLET PO PRN ×2 (06:18→12:54)
[2021-09-09] MEDS: hydrOXYzine PAMOATE 25 MG CAPSULE (FP) PO PRN ×2 (10:49→12:55)
[2021-09-09] MEDS: NICOTINE 21 MG/24 HOURS TOPICAL PATCH TD SCH (10:50)
[2021-09-09] MEDS: PRENATAL VITAMINS W/ FOLIC ACID TABLET (FP) PO SCH (10:50)
[2021-09-09] MEDS: MELATONIN 5 MG TABLETS PO SCH (22:18)
[2021-09-09] MEDS: THIAMINE HCL 100 MG TABLET (FP) PO SCH (22:18)
[2021-09-09] MEDS: ACETAMINOPHEN 325 MG TABLET (FP) PO PRN (22:19)
[2021-09-09 22:25] LABS: PH,URINE 5.5 (5.0-8.0); URINE APPEARANCE CLEAR; URINE BILIRUBIN NEGATIVE (NEGATIVE); URINE COLOR YELLOW; URINE GLUCOSE (UA) NEGATIVE (NEGATIVE); URINE KETONE NEGATIVE (NEGATIVE); URINE LEUK ESTERASE NEGATIVE (NEGATIVE); URINE NITRITE NEGATIVE (NEGATIVE); URINE PROTEIN NEGATIVE (NEGATIVE); URINE UROBILINOGEN 0.2 mg/dL (0.2-1.0)
[2021-09-10] MEDS: IBUPROFEN 400 MG TABLET (FP) PO PRN (06:56)
[2021-09-10] MEDS: NICOTINE 21 MG/24 HOURS TOPICAL PATCH TD SCH (10:48)
[2021-09-10] MEDS: ACETAMINOPHEN 325 MG TABLET (FP) PO PRN (10:49)
[2021-09-10] MEDS: METHOCARBAMOL 500 MG TABLET PO PRN (10:49)
[2021-09-10] MEDS: PRENATAL VITAMINS W/ FOLIC ACID TABLET (FP) PO SCH (10:52)
[2021-09-10 14:05] VITALS: BP 112/67; PULSE 73; TEMP 97.1
[2021-09-10 14:08] LABS: SARS-CoV-2 NAA Not Detected (Not Detected)
== END 2021-09-10 15:54 | disposition other institution (70) | DRG 774 ==
LOC: YASAS 01:47 → Y6N 02:26
PROVIDERS: ADMIT Allergy & Immunology; ATTEND Allergy & Immunology
PROC: HZ2ZZZZ Detoxification Services for Substance Abuse Treatment (ICD-10-PCS; principal; 2021-09-08)
DX: F10.230 Alcohol dependence with withdrawal, uncomplicated (principal); F14.20 Cocaine dependence, uncomplicated; F17.210 Nicotine dependence, cigarettes, uncomplicated; I25.2 Old myocardial infarction; M17.11 Unilateral primary osteoarthritis, right knee; Z59.01 Sheltered homelessness; Z86.69 Personal history of other diseases of the nervous system and sense organs
CPT/HCPCS: 36415; 80053; 81003; 85027; 86780; C9803-CS; U0003; U0005

== ENCOUNTER 2021-09-10 16:13 | Inpatient (IN) | payer OTHER ==
[2021-09-10] MEDS ORDERED: MAGNESIUM CITRATE 300 ML BOTTLE PO PRN (19:03)
[2021-09-10] MEDS ORDERED: P-EPHED 60MG/TRIPROLIDI 2.5MG TABLET PO PRN (19:03)
[2021-09-10] MEDS ORDERED: MAGNESIUM HYDROX 2400MG/30ML ORAL SUSPENSION 30 ML CUP PO PRN (19:03)
[2021-09-10] MEDS ORDERED: NICOTINE POLACRILEX 4 MG GUM BUC PRN (19:03)
[2021-09-10] MEDS ORDERED: MAG HYDROX/AL HYDROX/SIMETH 30 ML UNIT-DOSE CUP PO PRN (19:03)
[2021-09-10] MEDS ORDERED: LOPERAMIDE HCL 2 MG CAPSULE PO PRN (19:03)
[2021-09-10] MEDS ORDERED: guaiFENesin 200 MG/10 ML 10 ML UNIT-DOSE CUPS PO PRN (19:03)
[2021-09-10] MEDS ORDERED: NICOTINE 10 MG CARTRIDGE (INHALER) IH PRN (19:03)
[2021-09-10] MEDS ORDERED: hydrOXYzine PAMOATE 25 MG CAPSULE (FP) PO PRN (19:03)
[2021-09-10] MEDS ORDERED: BENZOCAINE/MENTHOL (CHLORASEPTIC ) LOZENGE MM PRN (19:03)
[2021-09-10] MEDS: IBUPROFEN 400 MG TABLET (FP) PO PRN (19:50)
[2021-09-10] MEDS: MELATONIN 5 MG TABLETS PO SCH (21:56)
[2021-09-10] MEDS: THIAMINE HCL 100 MG TABLET (FP) PO SCH (21:57)
[2021-09-11] MEDS: IBUPROFEN 400 MG TABLET (FP) PO PRN ×2 (06:23→17:55)
[2021-09-11] MEDS: PRENATAL VITAMINS W/ FOLIC ACID TABLET (FP) PO SCH (10:42)
[2021-09-11] MEDS: ACETAMINOPHEN 325 MG TABLET (FP) PO PRN ×2 (10:42→21:28)
[2021-09-11] MEDS: MELATONIN 5 MG TABLETS PO SCH (21:28)
[2021-09-11] MEDS: THIAMINE HCL 100 MG TABLET (FP) PO SCH (21:28)
[2021-09-12 07:18] VITALS: BP 99/65; PULSE 64; TEMP 97.5
[2021-09-12] MEDS: IBUPROFEN 400 MG TABLET (FP) PO PRN (10:24)
[2021-09-12] MEDS: PRENATAL VITAMINS W/ FOLIC ACID TABLET (FP) PO SCH (10:24)
== END 2021-09-12 11:40 | disposition left against medical advice (07) | DRG 770 ==
LOC: YASAS 16:13 → Y3W 16:14
PROVIDERS: ADMIT Allergy & Immunology; ATTEND Allergy & Immunology
PROC: HZ42ZZZ Group Counseling for Substance Abuse Treatment, Cognitive-Behavioral (ICD-10-PCS; principal; 2021-09-10)
DX: F10.20 Alcohol dependence, uncomplicated (principal); F14.20 Cocaine dependence, uncomplicated; F17.210 Nicotine dependence, cigarettes, uncomplicated; M17.11 Unilateral primary osteoarthritis, right knee; Z59.01 Sheltered homelessness

== ENCOUNTER 2021-09-22 05:21 | Inpatient (IN) | payer OTHER ==
[2021-09-22 05:33] VITALS: BMI 23.3
[2021-09-22] MEDS ORDERED: MAG HYDROX/AL HYDROX/SIMETH 30 ML UNIT-DOSE CUP PO PRN (09:32)
[2021-09-22] MEDS ORDERED: METHOCARBAMOL 500 MG TABLET PO PRN (09:32)
[2021-09-22] MEDS ORDERED: DICYCLOMINE HCL 10 MG CAPSULE PO PRN (09:32)
[2021-09-22] MEDS ORDERED: ACETAMINOPHEN 325 MG TABLET (FP) PO PRN (09:32)
[2021-09-22] MEDS ORDERED: NICOTINE 10 MG CARTRIDGE (INHALER) IH PRN (09:32)
[2021-09-22] MEDS ORDERED: MAGNESIUM HYDROX 2400MG/30ML ORAL SUSPENSION 30 ML CUP PO PRN (09:32)
[2021-09-22] MEDS ORDERED: BENZOCAINE/MENTHOL (CHLORASEPTIC ) LOZENGE MM PRN (09:32)
[2021-09-22] MEDS ORDERED: LOPERAMIDE HCL 2 MG CAPSULE PO PRN (09:32)
[2021-09-22] MEDS ORDERED: MAGNESIUM CITRATE 300 ML BOTTLE PO PRN (09:32)
[2021-09-22] MEDS ORDERED: chlordiazePOXIDE HCL 25 MG CAPSULE PO PRN (09:32)
[2021-09-22] MEDS ORDERED: ONDANSETRON *ODT* 4 MG TABLET SL PRN (09:32)
[2021-09-22] MEDS ORDERED: BISMUTH SUBSALICYLATE 262 MG/15 ML BTL PO PRN (09:32)
[2021-09-22] MEDS ORDERED: hydrOXYzine PAMOATE 25 MG CAPSULE (FP) PO PRN (10:00)
[2021-09-22] MEDS ORDERED: chlordiazePOXIDE HCL 25 MG CAPSULE PO SCH (11:00)
[2021-09-22] MEDS: chlordiazePOXIDE HCL 25 MG CAPSULE PO SCH ×3 (14:11→23:16)
[2021-09-22] MEDS: PRENATAL VITAMINS W/ FOLIC ACID TABLET (FP) PO SCH (14:12)
[2021-09-22 17:18] LABS: HEMATOCRIT 39.9 % (35.4-49); HEMOGLOBIN 13.2 GM/dL (11.7-16.9); MCH 28.1 pg (25.7-33.7); MCHC 33.1 g/dl (32.0-35.9); MEAN CELL VOLUME 84.9 fl (80-96); MEAN PLT VOLUME 8.4 fl (7.5-11.1); PLATELET COUNT 243 10^3/uL (134-434); RDW 16.4 % (11.9-15.9); WHITE BLOOD COUNT 4.2 K/mm3 (4.0-10.0)
[2021-09-22 17:37] LABS: CALCIUM 9.6 mg/dL (8.5-10.1)
[2021-09-22 17:38] LABS: ALBUMIN 3.6 g/dl (3.4-5.0); BLOOD UREA NITROGEN 13.9 mg/dL (7-18)
[2021-09-22 17:40] LABS: BILIRUBIN,TOTAL 0.3 mg/dL (0.2-1)
[2021-09-22] MEDS: IBUPROFEN 400 MG TABLET (FP) PO PRN (18:26)
[2021-09-22] MEDS: THIAMINE HCL 100 MG TABLET (FP) PO SCH (23:15)
[2021-09-22] MEDS: MELATONIN 5 MG TABLETS PO SCH (23:15)
[2021-09-23] MEDS: chlordiazePOXIDE HCL 25 MG CAPSULE PO SCH ×4 (07:13→22:41)
[2021-09-23] MEDS: PRENATAL VITAMINS W/ FOLIC ACID TABLET (FP) PO SCH (10:00)
[2021-09-23] MEDS: ACETAMINOPHEN 325 MG TABLET (FP) PO PRN (10:01)
[2021-09-23] MEDS: IBUPROFEN 400 MG TABLET (FP) PO PRN (17:13)
[2021-09-23] MEDS: THIAMINE HCL 100 MG TABLET (FP) PO SCH (22:41)
[2021-09-23] MEDS: MELATONIN 5 MG TABLETS PO SCH (22:43)
[2021-09-24] MEDS: chlordiazePOXIDE HCL 25 MG CAPSULE PO SCH ×4 (05:48→23:13)
[2021-09-24 10:14] LABS: SARS-CoV-2 NAA Not Detected (Not Detected)
[2021-09-24] MEDS: PRENATAL VITAMINS W/ FOLIC ACID TABLET (FP) PO SCH (11:57)
[2021-09-24] MEDS: ACETAMINOPHEN 325 MG TABLET (FP) PO PRN (18:48)
[2021-09-24] MEDS: MELATONIN 5 MG TABLETS PO SCH (23:13)
[2021-09-24] MEDS: THIAMINE HCL 100 MG TABLET (FP) PO SCH (23:13)
[2021-09-25] MEDS ORDERED: chlordiazePOXIDE HCL 10 MG CAPSULE PO PRN
[2021-09-25] MEDS: chlordiazePOXIDE HCL 10 MG CAPSULE PO SCH ×4 (06:31→22:47)
[2021-09-25] MEDS: PRENATAL VITAMINS W/ FOLIC ACID TABLET (FP) PO SCH (10:23)
[2021-09-25] MEDS: IBUPROFEN 400 MG TABLET (FP) PO PRN (10:24)
[2021-09-25] MEDS: MELATONIN 5 MG TABLETS PO SCH (22:47)
[2021-09-25] MEDS: THIAMINE HCL 100 MG TABLET (FP) PO SCH (22:47)
[2021-09-26] MEDS: chlordiazePOXIDE HCL 10 MG CAPSULE PO SCH ×2 (06:11→18:24)
[2021-09-26] MEDS: ACETAMINOPHEN 325 MG TABLET (FP) PO PRN (09:53)
[2021-09-26] MEDS: PRENATAL VITAMINS W/ FOLIC ACID TABLET (FP) PO SCH (09:55)
[2021-09-26] MEDS: MELATONIN 5 MG TABLETS PO SCH (22:43)
[2021-09-26] MEDS: THIAMINE HCL 100 MG TABLET (FP) PO SCH (22:43)
[2021-09-27] MEDS ORDERED: chlordiazePOXIDE HCL 10 MG CAPSULE PO ONE (05:00)
[2021-09-27 08:51] VITALS: BP 130/71; PULSE 79; TEMP 98
== END 2021-09-27 09:30 | disposition home or self-care (01) | DRG 774 ==
LOC: YASAS 05:21 → Y3N 11:47
PROVIDERS: ADMIT Allergy & Immunology; ATTEND Surgery
PROC: HZ2ZZZZ Detoxification Services for Substance Abuse Treatment (ICD-10-PCS; principal; 2021-09-22)
DX: F10.230 Alcohol dependence with withdrawal, uncomplicated (principal); F14.20 Cocaine dependence, uncomplicated; F17.210 Nicotine dependence, cigarettes, uncomplicated; F32.A Depression, unspecified; M19.90 Unspecified osteoarthritis, unspecified site; Z59.01 Sheltered homelessness
CPT/HCPCS: 36415; 80053; 85027; 86780; 87811; C9803-CS; U0003; U0005

== ENCOUNTER 2021-10-10 06:20 | Inpatient (IN) | payer OTHER ==
[2021-10-10 06:40] VITALS: BMI 23.8
[2021-10-10] MEDS ORDERED: ACETAMINOPHEN 325 MG TABLET (FP) PO PRN ×2 (08:54)
[2021-10-10] MEDS ORDERED: ONDANSETRON *ODT* 4 MG TABLET SL PRN (08:54)
[2021-10-10] MEDS ORDERED: NALOXONE HCL (KLOXXADO) 8 MG SPRAY NS PRN (08:54)
[2021-10-10] MEDS ORDERED: IBUPROFEN 600 MG TABLET (FP) PO PRN (08:54)
[2021-10-10] MEDS ORDERED: NICOTINE 10 MG CARTRIDGE (INHALER) IH PRN (08:54)
[2021-10-10] MEDS ORDERED: DICYCLOMINE HCL 10 MG CAPSULE PO PRN (08:54)
[2021-10-10] MEDS ORDERED: METHOCARBAMOL 500 MG TABLET PO PRN (08:54)
[2021-10-10] MEDS ORDERED: MAG HYDROX/AL HYDROX/SIMETH 30 ML UNIT-DOSE CUP PO PRN (08:54)
[2021-10-10] MEDS ORDERED: BISMUTH SUBSALICYLATE 524 MG/30 ML PO PRN (08:54)
[2021-10-10] MEDS ORDERED: MAGNESIUM CITRATE 300 ML BOTTLE PO PRN (08:54)
[2021-10-10] MEDS ORDERED: BENZOCAINE/MENTHOL (CHLORASEPTIC ) LOZENGE MM PRN (08:54)
[2021-10-10] MEDS ORDERED: MAGNESIUM HYDROX 2400MG/30ML ORAL SUSPENSION 30 ML CUP PO PRN (08:54)
[2021-10-10] MEDS ORDERED: chlordiazePOXIDE HCL 25 MG CAPSULE PO PRN (08:54)
[2021-10-10] MEDS ORDERED: LOPERAMIDE HCL 2 MG CAPSULE PO PRN (08:54)
[2021-10-10] MEDS ORDERED: chlordiazePOXIDE HCL 25 MG CAPSULE ONE (10:43)
[2021-10-10] MEDS: hydrOXYzine PAMOATE 25 MG CAPSULE (FP) PO SCH ×4 (10:47→22:30)
[2021-10-10] MEDS: chlordiazePOXIDE HCL 25 MG CAPSULE PO SCH ×3 (10:48→22:30)
[2021-10-10] MEDS: PRENATAL VITAMINS W/ FOLIC ACID TABLET (FP) PO SCH (11:17)
[2021-10-10] MEDS: MELATONIN 5 MG TABLETS PO SCH (22:30)
[2021-10-10] MEDS: THIAMINE HCL 100 MG TABLET (FP) PO SCH (22:30)
[2021-10-11] MEDS: hydrOXYzine PAMOATE 25 MG CAPSULE (FP) PO SCH ×5 (05:27→22:20)
[2021-10-11] MEDS: chlordiazePOXIDE HCL 25 MG CAPSULE PO SCH ×4 (05:28→22:20)
[2021-10-11] MEDS: IBUPROFEN 400 MG TABLET (FP) PO PRN ×2 (05:29→22:22)
[2021-10-11] MEDS: PRENATAL VITAMINS W/ FOLIC ACID TABLET (FP) PO SCH (10:57)
[2021-10-11 10:58] LABS: HEMOGLOBIN 12.6 GM/dL (11.7-16.9); MCH 28.1 pg (25.7-33.7); MCHC 33.2 g/dl (32.0-35.9); MEAN CELL VOLUME 84.7 fl (80-96); MEAN PLT VOLUME 8.7 fl (7.5-11.1); PLATELET COUNT 262 10^3/uL (134-434); RBC 4.48 M/mm3 (4.00-5.60); WHITE BLOOD COUNT 4.3 K/mm3 (4.0-10.0)
[2021-10-11 10:59] LABS: CALCIUM 8.9 mg/dL (8.5-10.1)
[2021-10-11 11:00] LABS: ALBUMIN 3.4 g/dl (3.4-5.0); BLOOD UREA NITROGEN 19.3 mg/dL (7-18)
[2021-10-11 11:03] LABS: CREATININE 1.1 mg/dL (0.55-1.3)
[2021-10-11 11:04] LABS: BILIRUBIN,TOTAL 0.5 mg/dL (0.2-1)
[2021-10-11] MEDS: NALTREXONE HCL 50 MG TABLET PO SCH (15:43)
[2021-10-11] MEDS: THIAMINE HCL 100 MG TABLET (FP) PO SCH (22:20)
[2021-10-11] MEDS: MELATONIN 5 MG TABLETS PO SCH (23:42)
[2021-10-12] MEDS: chlordiazePOXIDE HCL 25 MG CAPSULE PO SCH ×2 (06:57→11:20)
[2021-10-12] MEDS: hydrOXYzine PAMOATE 25 MG CAPSULE (FP) PO SCH ×3 (06:58→14:01)
[2021-10-12] MEDS: NALTREXONE HCL 50 MG TABLET PO SCH (11:19)
[2021-10-12] MEDS: PRENATAL VITAMINS W/ FOLIC ACID TABLET (FP) PO SCH (11:20)
[2021-10-12 13:30] VITALS: BP 125/69; PULSE 60; TEMP 96.8
[2021-10-13] MEDS ORDERED: chlordiazePOXIDE HCL 10 MG CAPSULE PO PRN
[2021-10-13] MEDS ORDERED: chlordiazePOXIDE HCL 10 MG CAPSULE PO SCH (05:00)
[2021-10-14] MEDS ORDERED: chlordiazePOXIDE HCL 10 MG CAPSULE PO SCH (05:00)
[2021-10-15] MEDS ORDERED: chlordiazePOXIDE HCL 10 MG CAPSULE PO ONE (05:00)
== END 2021-10-12 16:03 | disposition left against medical advice (07) | DRG 770 ==
LOC: YASAS 06:20 → Y6N 10:31
PROVIDERS: ADMIT Allergy & Immunology; ATTEND Surgery
PROC: HZ2ZZZZ Detoxification Services for Substance Abuse Treatment (ICD-10-PCS; principal; 2021-10-10)
DX: F10.230 Alcohol dependence with withdrawal, uncomplicated (principal); F14.20 Cocaine dependence, uncomplicated; F17.210 Nicotine dependence, cigarettes, uncomplicated; F32.A Depression, unspecified; I25.2 Old myocardial infarction; M17.11 Unilateral primary osteoarthritis, right knee; Z86.69 Personal history of other diseases of the nervous system and sense organs; Z59.00 Homelessness unspecified
CPT/HCPCS: 36415; 80053; 85027; 86780; 87811; C9803-CS; U0003; U0005

== ENCOUNTER 2021-10-22 07:01 | Inpatient (IN) | payer OTHER ==
[2021-10-22 09:22] VITALS: BMI 22.9
[2021-10-22] MEDS ORDERED: BISMUTH SUBSALICYLATE 524 MG/30 ML PO PRN (17:18)
[2021-10-22] MEDS ORDERED: MAGNESIUM HYDROX 2400MG/30ML ORAL SUSPENSION 30 ML CUP PO PRN (17:18)
[2021-10-22] MEDS ORDERED: DICYCLOMINE HCL 10 MG CAPSULE PO PRN (17:18)
[2021-10-22] MEDS ORDERED: ONDANSETRON *ODT* 4 MG TABLET SL PRN (17:18)
[2021-10-22] MEDS ORDERED: IBUPROFEN 400 MG TABLET (FP) PO PRN (17:18)
[2021-10-22] MEDS ORDERED: ACETAMINOPHEN 325 MG TABLET (FP) PO PRN ×2 (17:18)
[2021-10-22] MEDS ORDERED: LOPERAMIDE HCL 2 MG CAPSULE PO PRN (17:18)
[2021-10-22] MEDS ORDERED: NICOTINE 10 MG CARTRIDGE (INHALER) IH PRN (17:18)
[2021-10-22] MEDS ORDERED: IBUPROFEN 600 MG TABLET (FP) PO PRN (17:18)
[2021-10-22] MEDS ORDERED: BENZOCAINE/MENTHOL (CHLORASEPTIC ) LOZENGE MM PRN (17:18)
[2021-10-22] MEDS ORDERED: MAGNESIUM CITRATE 300 ML BOTTLE PO PRN (17:18)
[2021-10-22] MEDS ORDERED: METHOCARBAMOL 500 MG TABLET PO PRN (17:18)
[2021-10-22] MEDS ORDERED: MAG HYDROX/AL HYDROX/SIMETH 30 ML UNIT-DOSE CUP PO PRN (17:18)
[2021-10-22] MEDS: hydrOXYzine PAMOATE 25 MG CAPSULE (FP) PO SCH ×2 (18:15→23:34)
[2021-10-22] MEDS: THIAMINE HCL 100 MG TABLET (FP) PO SCH (23:34)
[2021-10-22] MEDS: MELATONIN 5 MG TABLETS PO SCH (23:34)
[2021-10-23] MEDS: hydrOXYzine PAMOATE 25 MG CAPSULE (FP) PO SCH ×5 (05:19→22:53)
[2021-10-23] MEDS ORDERED: amLODIPine BESYLATE 5 MG TABLET (FP) PO SCH (10:00)
[2021-10-23] MEDS ORDERED: PRENATAL VITAMINS W/ FOLIC ACID TABLET (FP) PO SCH (10:00)
[2021-10-23 10:03] LABS: HEMATOCRIT 38.9 % (35.4-49); HEMOGLOBIN 13.4 GM/dL (11.7-16.9); MCH 28.7 pg (25.7-33.7); MCHC 34.4 g/dl (32.0-35.9); MEAN CELL VOLUME 83.3 fl (80-96); MEAN PLT VOLUME 7.5 fl (7.5-11.1); PLATELET COUNT 283 10^3/uL (134-434); RBC 4.67 M/mm3 (4.00-5.60); RDW 15.5 % (11.9-15.9); WHITE BLOOD COUNT 5.1 K/mm3 (4.0-10.0)
[2021-10-23 10:19] LABS: ALBUMIN 3.1 g/dl (3.4-5.0); CALCIUM 9.1 mg/dL (8.5-10.1)
[2021-10-23 10:21] LABS: BILIRUBIN,TOTAL 0.6 mg/dL (0.2-1); TOT PROT 6.6 g/dl (6.4-8.2)
[2021-10-23] MEDS: MELATONIN 5 MG TABLETS PO SCH (22:53)
[2021-10-23] MEDS: THIAMINE HCL 100 MG TABLET (FP) PO SCH (22:53)
[2021-10-24] MEDS: hydrOXYzine PAMOATE 25 MG CAPSULE (FP) PO SCH (06:15)
[2021-10-24 06:39] VITALS: BP 136/84; PULSE 73; TEMP 96.4
== END 2021-10-24 08:53 | disposition home or self-care (01) | DRG 774 ==
LOC: YASAS 07:01 → Y6N 15:23 → UNDOADMIN 15:23 → UNDODISIN 10-24 08:53
PROVIDERS: ADMIT Allergy & Immunology; ATTEND Surgery
PROC: HZ2ZZZZ Detoxification Services for Substance Abuse Treatment (ICD-10-PCS; principal; 2021-10-22)
DX: F10.230 Alcohol dependence with withdrawal, uncomplicated (principal); F14.20 Cocaine dependence, uncomplicated; F17.210 Nicotine dependence, cigarettes, uncomplicated; I10 Essential (primary) hypertension; M17.11 Unilateral primary osteoarthritis, right knee
CPT/HCPCS: 36415; 80053; 85027; 86780; C9803-CS; U0003; U0005

== ENCOUNTER 2021-11-02 00:50 | Inpatient (IN) | payer OTHER ==
[2021-11-02 01:40] VITALS: BMI 23.1
[2021-11-02] MEDS ORDERED: MAG HYDROX/AL HYDROX/SIMETH 30 ML UNIT-DOSE CUP PO PRN (01:49)
[2021-11-02] MEDS ORDERED: LOPERAMIDE HCL 2 MG CAPSULE PO PRN (01:49)
[2021-11-02] MEDS ORDERED: BISMUTH SUBSALICYLATE 524 MG/30 ML PO PRN (01:49)
[2021-11-02] MEDS ORDERED: MAGNESIUM HYDROX 2400MG/30ML ORAL SUSPENSION 30 ML CUP PO PRN (01:49)
[2021-11-02] MEDS ORDERED: ONDANSETRON *ODT* 4 MG TABLET SL PRN (01:49)
[2021-11-02] MEDS ORDERED: NICOTINE 10 MG CARTRIDGE (INHALER) IH PRN (01:49)
[2021-11-02] MEDS ORDERED: IBUPROFEN 400 MG TABLET (FP) PO PRN (01:49)
[2021-11-02] MEDS ORDERED: DICYCLOMINE HCL 10 MG CAPSULE PO PRN (01:49)
[2021-11-02] MEDS ORDERED: ACETAMINOPHEN 325 MG TABLET (FP) PO PRN ×2 (01:49)
[2021-11-02] MEDS ORDERED: BENZOCAINE/MENTHOL (CHLORASEPTIC ) LOZENGE MM PRN (01:49)
[2021-11-02] MEDS ORDERED: MAGNESIUM CITRATE 300 ML BOTTLE PO PRN (01:49)
[2021-11-02] MEDS: PRENATAL VITAMINS W/ FOLIC ACID TABLET (FP) PO SCH (11:41)
[2021-11-02] MEDS: NICOTINE 21 MG/24 HOURS TOPICAL PATCH TD SCH (11:41)
[2021-11-02 15:16] LABS: CALCIUM 9.4 mg/dL (8.5-10.1)
[2021-11-02 15:17] LABS: ALBUMIN 3.5 g/dl (3.4-5.0); BLOOD UREA NITROGEN 19.7 mg/dL (7-18)
[2021-11-02 15:20] LABS: CREATININE 1.1 mg/dL (0.55-1.3)
[2021-11-02 15:22] LABS: BILIRUBIN,TOTAL 0.6 mg/dL (0.2-1)
[2021-11-02 15:23] LABS: HEMATOCRIT 40.3 % (35.4-49); HEMOGLOBIN 13.5 GM/dL (11.7-16.9); MCH 28.2 pg (25.7-33.7); MCHC 33.4 g/dl (32.0-35.9); MEAN CELL VOLUME 84.4 fl (80-96); PLATELET COUNT 283 10^3/uL (134-434); RBC 4.77 M/mm3 (4.00-5.60); RDW 15.4 % (11.9-15.9); WHITE BLOOD COUNT 3.8 K/mm3 (4.0-10.0)
[2021-11-02] MEDS: IBUPROFEN 600 MG TABLET (FP) PO PRN (19:40)
[2021-11-02] MEDS: METHOCARBAMOL 500 MG TABLET PO PRN (19:41)
[2021-11-02] MEDS: MELATONIN 5 MG TABLETS PO SCH (23:37)
[2021-11-02] MEDS: THIAMINE HCL 100 MG TABLET (FP) PO SCH (23:37)
[2021-11-03] MEDS: NICOTINE 21 MG/24 HOURS TOPICAL PATCH TD SCH (10:08)
[2021-11-03] MEDS: PRENATAL VITAMINS W/ FOLIC ACID TABLET (FP) PO SCH (10:08)
[2021-11-03] MEDS: IBUPROFEN 600 MG TABLET (FP) PO PRN (10:10)
[2021-11-03] MEDS: METHOCARBAMOL 500 MG TABLET PO PRN (10:10)
[2021-11-03] MEDS: THIAMINE HCL 100 MG TABLET (FP) PO SCH (23:39)
[2021-11-03] MEDS: MELATONIN 5 MG TABLETS PO SCH (23:39)
[2021-11-04 06:36] VITALS: BP 129/74; PULSE 74; TEMP 97.8
[2021-11-04] MEDS: PRENATAL VITAMINS W/ FOLIC ACID TABLET (FP) PO SCH (10:05)
[2021-11-04] MEDS: NICOTINE 21 MG/24 HOURS TOPICAL PATCH TD SCH (10:05)
== END 2021-11-04 11:18 | disposition home or self-care (01) | DRG 774 ==
LOC: YASAS 00:50 → Y3N 01:43
PROVIDERS: ADMIT Allergy & Immunology; ATTEND Surgery
PROC: HZ2ZZZZ Detoxification Services for Substance Abuse Treatment (ICD-10-PCS; principal; 2021-11-02)
DX: F10.230 Alcohol dependence with withdrawal, uncomplicated (principal); F14.20 Cocaine dependence, uncomplicated; F17.210 Nicotine dependence, cigarettes, uncomplicated; I10 Essential (primary) hypertension; M17.11 Unilateral primary osteoarthritis, right knee; I25.2 Old myocardial infarction; Z86.69 Personal history of other diseases of the nervous system and sense organs; Z56.0 Unemployment, unspecified; Z59.00 Homelessness unspecified
CPT/HCPCS: 36415; 80053; 85027; 86780; C9803-CS; U0003; U0005

== ENCOUNTER 2021-12-04 09:52 | Inpatient (IN) | payer OTHER ==
[2021-12-04 10:58] VITALS: BMI 22.4
[2021-12-04] MEDS ORDERED: chlordiazePOXIDE HCL 25 MG CAPSULE PO PRN (11:53)
[2021-12-04] MEDS ORDERED: NICOTINE 10 MG CARTRIDGE (INHALER) IH PRN (11:53)
[2021-12-04] MEDS ORDERED: LOPERAMIDE HCL 2 MG CAPSULE PO PRN (11:53)
[2021-12-04] MEDS ORDERED: IBUPROFEN 400 MG TABLET (FP) PO PRN (11:53)
[2021-12-04] MEDS ORDERED: DICYCLOMINE HCL 10 MG CAPSULE PO PRN (11:53)
[2021-12-04] MEDS ORDERED: ACETAMINOPHEN 325 MG TABLET (FP) PO PRN ×2 (11:53)
[2021-12-04] MEDS ORDERED: MAGNESIUM HYDROX 2400MG/30ML ORAL SUSPENSION 30 ML CUP PO PRN (11:53)
[2021-12-04] MEDS ORDERED: BISMUTH SUBSALICYLATE 524 MG/30 ML PO PRN (11:53)
[2021-12-04] MEDS ORDERED: MAG HYDROX/AL HYDROX/SIMETH 30 ML UNIT-DOSE CUP PO PRN (11:53)
[2021-12-04] MEDS ORDERED: ONDANSETRON *ODT* 4 MG TABLET SL PRN (11:53)
[2021-12-04] MEDS ORDERED: MAGNESIUM CITRATE 300 ML BOTTLE PO PRN (11:53)
[2021-12-04] MEDS ORDERED: BENZOCAINE/MENTHOL (CHLORASEPTIC ) LOZENGE MM PRN (11:53)
[2021-12-04] MEDS: hydrOXYzine PAMOATE 25 MG CAPSULE (FP) PO SCH ×3 (13:24→23:37)
[2021-12-04] MEDS: chlordiazePOXIDE HCL 25 MG CAPSULE PO SCH ×2 (18:14→23:38)
[2021-12-04] MEDS: MELATONIN 5 MG TABLETS PO SCH (23:37)
[2021-12-04] MEDS: THIAMINE HCL 100 MG TABLET (FP) PO SCH (23:38)
[2021-12-05] MEDS: hydrOXYzine PAMOATE 25 MG CAPSULE (FP) PO SCH ×5 (05:32→23:39)
[2021-12-05] MEDS: chlordiazePOXIDE HCL 25 MG CAPSULE PO SCH ×4 (05:32→23:34)
[2021-12-05 09:43] LABS: HEMOGLOBIN 13.3 GM/dL (11.7-16.9); MCH 28.3 pg (25.7-33.7); MCHC 33.4 g/dl (32.0-35.9); MEAN CELL VOLUME 84.7 fl (80-96); MEAN PLT VOLUME 7.9 fl (7.5-11.1); PLATELET COUNT 244 10^3/uL (134-434); RBC 4.72 M/mm3 (4.00-5.60); RDW 14.7 % (11.9-15.9)
[2021-12-05 09:49] LABS: ALBUMIN 3.1 g/dl (3.4-5.0); BLOOD UREA NITROGEN 14.9 mg/dL (7-18)
[2021-12-05 09:50] LABS: CALCIUM 9.2 mg/dL (8.5-10.1)
[2021-12-05 09:53] LABS: CREATININE 0.9 mg/dL (0.55-1.3); TOT PROT 6.2 g/dl (6.4-8.2)
[2021-12-05 09:54] LABS: BILIRUBIN,TOTAL 0.4 mg/dL (0.2-1)
[2021-12-05] MEDS: PRENATAL VITAMINS W/ FOLIC ACID TABLET (FP) PO SCH (10:51)
[2021-12-05] MEDS: MELATONIN 5 MG TABLETS PO SCH (23:39)
[2021-12-05] MEDS: THIAMINE HCL 100 MG TABLET (FP) PO SCH (23:40)
[2021-12-06] MEDS: chlordiazePOXIDE HCL 25 MG CAPSULE PO SCH ×4 (05:49→23:12)
[2021-12-06] MEDS: hydrOXYzine PAMOATE 25 MG CAPSULE (FP) PO SCH ×5 (05:49→23:12)
[2021-12-06] MEDS: PRENATAL VITAMINS W/ FOLIC ACID TABLET (FP) PO SCH (10:28)
[2021-12-06] MEDS: METHOCARBAMOL 500 MG TABLET PO PRN (10:28)
[2021-12-06] MEDS: THIAMINE HCL 100 MG TABLET (FP) PO SCH (23:12)
[2021-12-06] MEDS: MELATONIN 5 MG TABLETS PO SCH (23:12)
[2021-12-07] MEDS ORDERED: chlordiazePOXIDE HCL 10 MG CAPSULE PO PRN
[2021-12-07] MEDS: chlordiazePOXIDE HCL 10 MG CAPSULE PO SCH ×4 (05:45→23:44)
[2021-12-07] MEDS: hydrOXYzine PAMOATE 25 MG CAPSULE (FP) PO SCH ×5 (05:46→23:44)
[2021-12-07] MEDS: METHOCARBAMOL 500 MG TABLET PO PRN (10:50)
[2021-12-07] MEDS: PRENATAL VITAMINS W/ FOLIC ACID TABLET (FP) PO SCH (10:50)
[2021-12-07] MEDS: MELATONIN 5 MG TABLETS PO SCH (23:44)
[2021-12-07] MEDS: THIAMINE HCL 100 MG TABLET (FP) PO SCH (23:44)
[2021-12-08] MEDS: hydrOXYzine PAMOATE 25 MG CAPSULE (FP) PO SCH ×4 (06:03→18:45)
[2021-12-08] MEDS: chlordiazePOXIDE HCL 10 MG CAPSULE PO SCH ×2 (06:03→18:45)
[2021-12-08] MEDS: IBUPROFEN 600 MG TABLET (FP) PO PRN (07:27)
[2021-12-08] MEDS: PRENATAL VITAMINS W/ FOLIC ACID TABLET (FP) PO SCH (10:49)
[2021-12-08] MEDS: METHOCARBAMOL 500 MG TABLET PO PRN (18:45)
[2021-12-08 21:40] VITALS: RESP 18
[2021-12-09] MEDS: MELATONIN 5 MG TABLETS PO SCH (00:01)
[2021-12-09] MEDS: THIAMINE HCL 100 MG TABLET (FP) PO SCH (00:01)
[2021-12-09] MEDS: hydrOXYzine PAMOATE 25 MG CAPSULE (FP) PO SCH ×3 (00:01→10:43)
[2021-12-09] MEDS ORDERED: chlordiazePOXIDE HCL 10 MG CAPSULE PO ONE (05:00)
[2021-12-09] MEDS: IBUPROFEN 600 MG TABLET (FP) PO PRN (06:11)
[2021-12-09 09:31] VITALS: BP 118/70; PULSE 78; TEMP 98.1
[2021-12-09] MEDS: PRENATAL VITAMINS W/ FOLIC ACID TABLET (FP) PO SCH (10:43)
== END 2021-12-09 12:30 | disposition home or self-care (01) | DRG 774 ==
LOC: YASAS 09:52 → Y6N 12:02
PROVIDERS: ADMIT Allergy & Immunology; ATTEND Surgery
PROC: HZ2ZZZZ Detoxification Services for Substance Abuse Treatment (ICD-10-PCS; principal; 2021-12-04)
DX: F10.230 Alcohol dependence with withdrawal, uncomplicated (principal); F14.20 Cocaine dependence, uncomplicated; F17.210 Nicotine dependence, cigarettes, uncomplicated; I10 Essential (primary) hypertension; I25.2 Old myocardial infarction; M17.11 Unilateral primary osteoarthritis, right knee; Z56.0 Unemployment, unspecified; Z59.01 Sheltered homelessness
CPT/HCPCS: 36415; 80053; 85027; 86780; 93005; 93010; C9803-CS; U0003; U0005

== ENCOUNTER 2021-12-20 10:10 | Inpatient (IN) | payer OTHER ==
[2021-12-20 10:52] VITALS: BMI 22.9
[2021-12-20] MEDS ORDERED: BISMUTH SUBSALICYLATE 262 MG/15 ML BTL PO PRN (12:19)
[2021-12-20] MEDS ORDERED: MAGNESIUM CITRATE 300 ML BOTTLE PO PRN (12:19)
[2021-12-20] MEDS ORDERED: ACETAMINOPHEN 325 MG TABLET (FP) PO PRN ×2 (12:19)
[2021-12-20] MEDS ORDERED: METHOCARBAMOL 500 MG TABLET PO PRN (12:19)
[2021-12-20] MEDS ORDERED: BENZOCAINE/MENTHOL (CHLORASEPTIC ) LOZENGE MM PRN (12:19)
[2021-12-20] MEDS ORDERED: DICYCLOMINE HCL 10 MG CAPSULE PO PRN (12:19)
[2021-12-20] MEDS ORDERED: NICOTINE 10 MG CARTRIDGE (INHALER) IH PRN (12:19)
[2021-12-20] MEDS ORDERED: IBUPROFEN 600 MG TABLET (FP) PO PRN (12:19)
[2021-12-20] MEDS ORDERED: IBUPROFEN 400 MG TABLET (FP) PO PRN (12:19)
[2021-12-20] MEDS ORDERED: MAGNESIUM HYDROX 2400MG/30ML ORAL SUSPENSION 30 ML CUP PO PRN (12:19)
[2021-12-20] MEDS ORDERED: LOPERAMIDE HCL 2 MG CAPSULE PO PRN (12:19)
[2021-12-20] MEDS ORDERED: ONDANSETRON *ODT* 4 MG TABLET SL PRN (12:19)
[2021-12-20] MEDS ORDERED: MAG HYDROX/AL HYDROX/SIMETH 30 ML UNIT-DOSE CUP PO PRN (12:19)
[2021-12-20] MEDS ORDERED: chlordiazePOXIDE HCL 25 MG CAPSULE PO PRN (12:19)
[2021-12-20] MEDS: PRENATAL VITAMINS W/ FOLIC ACID TABLET (FP) PO SCH (13:04)
[2021-12-20] MEDS ORDERED: hydrOXYzine PAMOATE 25 MG CAPSULE (FP) PO PRN (14:00)
[2021-12-20 16:40] LABS: HEMATOCRIT 37.1 % (35.4-49); HEMOGLOBIN 12.8 GM/dL (11.7-16.9); MCH 28.5 pg (25.7-33.7); MCHC 34.6 g/dl (32.0-35.9); MEAN CELL VOLUME 82.5 fl (80-96); MEAN PLT VOLUME 8.2 fl (7.5-11.1); PLATELET COUNT 271 10^3/uL (134-434); RBC 4.49 M/mm3 (4.00-5.60); RDW 14.3 % (11.9-15.9)
[2021-12-20 16:51] LABS: CALCIUM 9.2 mg/dL (8.5-10.1)
[2021-12-20 16:52] LABS: ALBUMIN 3.3 g/dl (3.4-5.0); BLOOD UREA NITROGEN 14.6 mg/dL (7-18)
[2021-12-20 16:55] LABS: CREATININE 1.1 mg/dL (0.55-1.3)
[2021-12-20 16:56] LABS: TOT PROT 6.8 g/dl (6.4-8.2)
[2021-12-20 16:57] LABS: BILIRUBIN,TOTAL 0.5 mg/dL (0.2-1)
[2021-12-20] MEDS: chlordiazePOXIDE HCL 25 MG CAPSULE PO SCH ×2 (19:08→23:39)
[2021-12-20] MEDS: MELATONIN 5 MG TABLETS PO SCH (23:38)
[2021-12-20] MEDS: THIAMINE HCL 100 MG TABLET (FP) PO SCH (23:38)
[2021-12-21] MEDS: chlordiazePOXIDE HCL 25 MG CAPSULE PO SCH (07:29)
[2021-12-21] MEDS ORDERED: LORazepam 1 MG TABLET PO PRN (10:37)
[2021-12-21] MEDS: LORazepam 2 MG TABLET PO SCH ×2 (11:04→18:09)
[2021-12-21] MEDS: PRENATAL VITAMINS W/ FOLIC ACID TABLET (FP) PO SCH (11:05)
[2021-12-21] MEDS: LORazepam 1 MG TABLET PO SCH (22:45)
[2021-12-21] MEDS: THIAMINE HCL 100 MG TABLET (FP) PO SCH (22:45)
[2021-12-21] MEDS: MELATONIN 5 MG TABLETS PO SCH (22:45)
[2021-12-22] MEDS ORDERED: chlordiazePOXIDE HCL 25 MG CAPSULE PO SCH (05:00)
[2021-12-22] MEDS: LORazepam 1 MG TABLET PO SCH ×4 (06:39→23:30)
[2021-12-22] MEDS: PRENATAL VITAMINS W/ FOLIC ACID TABLET (FP) PO SCH (10:44)
[2021-12-22] MEDS: MELATONIN 5 MG TABLETS PO SCH (23:31)
[2021-12-22] MEDS: THIAMINE HCL 100 MG TABLET (FP) PO SCH (23:31)
[2021-12-23] MEDS ORDERED: chlordiazePOXIDE HCL 10 MG CAPSULE PO PRN
[2021-12-23] MEDS ORDERED: chlordiazePOXIDE HCL 10 MG CAPSULE PO SCH (05:00)
[2021-12-23] MEDS: LORazepam 1 MG TABLET PO SCH ×4 (06:33→22:37)
[2021-12-23] MEDS: PRENATAL VITAMINS W/ FOLIC ACID TABLET (FP) PO SCH (10:52)
[2021-12-23] MEDS: THIAMINE HCL 100 MG TABLET (FP) PO SCH (22:36)
[2021-12-23] MEDS: MELATONIN 5 MG TABLETS PO SCH (22:36)
[2021-12-24] MEDS ORDERED: LORazepam 0.5 MG TABLET PO PRN
[2021-12-24] MEDS ORDERED: chlordiazePOXIDE HCL 10 MG CAPSULE PO SCH (05:00)
[2021-12-24] MEDS: LORazepam 0.5 MG TABLET PO SCH ×4 (06:34→22:37)
[2021-12-24] MEDS: PRENATAL VITAMINS W/ FOLIC ACID TABLET (FP) PO SCH (10:47)
[2021-12-24] MEDS: THIAMINE HCL 100 MG TABLET (FP) PO SCH (22:37)
[2021-12-24] MEDS: MELATONIN 5 MG TABLETS PO SCH (22:37)
[2021-12-24 23:15] VITALS: RESP 18
[2021-12-25] MEDS ORDERED: LORazepam 0.5 MG TABLET PO ONE (05:00)
[2021-12-25] MEDS ORDERED: chlordiazePOXIDE HCL 10 MG CAPSULE PO ONE (05:00)
[2021-12-25 06:41] VITALS: BP 127/67; PULSE 69; TEMP 97.3
[2021-12-25] MEDS: PRENATAL VITAMINS W/ FOLIC ACID TABLET (FP) PO SCH (09:11)
== END 2021-12-25 09:20 | disposition home or self-care (01) | DRG 774 ==
LOC: YASAS 10:10 → Y3N 12:17
PROVIDERS: ADMIT Allergy & Immunology; ATTEND Surgery
PROC: HZ2ZZZZ Detoxification Services for Substance Abuse Treatment (ICD-10-PCS; principal; 2021-12-20)
DX: F10.230 Alcohol dependence with withdrawal, uncomplicated (principal); F14.20 Cocaine dependence, uncomplicated; F17.210 Nicotine dependence, cigarettes, uncomplicated; I10 Essential (primary) hypertension; I25.2 Old myocardial infarction; M17.11 Unilateral primary osteoarthritis, right knee; Z20.822 Contact with and (suspected) exposure to COVID-19; Z28.311 Partially vaccinated for COVID-19; Z59.01 Sheltered homelessness
CPT/HCPCS: 36415; 80053; 85027; 86780; C9803-CS; U0003; U0005

== ENCOUNTER 2022-01-03 08:33 | Inpatient (IN) | payer OTHER ==
[2022-01-03 09:32] VITALS: BMI 21.5
[2022-01-03] MEDS ORDERED: METHOCARBAMOL 500 MG TABLET PO PRN (10:05)
[2022-01-03] MEDS ORDERED: MAGNESIUM HYDROX 2400MG/30ML ORAL SUSPENSION 30 ML CUP PO PRN (10:05)
[2022-01-03] MEDS ORDERED: BISMUTH SUBSALICYLATE 524 MG/30 ML PO PRN (10:05)
[2022-01-03] MEDS ORDERED: MAGNESIUM CITRATE 300 ML BOTTLE PO PRN (10:05)
[2022-01-03] MEDS ORDERED: DICYCLOMINE HCL 10 MG CAPSULE PO PRN (10:05)
[2022-01-03] MEDS ORDERED: MAG HYDROX/AL HYDROX/SIMETH 30 ML UNIT-DOSE CUP PO PRN (10:05)
[2022-01-03] MEDS ORDERED: chlordiazePOXIDE HCL 25 MG CAPSULE PO PRN (10:05)
[2022-01-03] MEDS ORDERED: NICOTINE 10 MG CARTRIDGE (INHALER) IH PRN (10:05)
[2022-01-03] MEDS ORDERED: ONDANSETRON *ODT* 4 MG TABLET SL PRN (10:05)
[2022-01-03] MEDS ORDERED: LOPERAMIDE HCL 2 MG CAPSULE PO PRN (10:05)
[2022-01-03] MEDS ORDERED: IBUPROFEN 400 MG TABLET (FP) PO PRN (10:05)
[2022-01-03] MEDS ORDERED: ACETAMINOPHEN 325 MG TABLET (FP) PO PRN ×2 (10:05)
[2022-01-03] MEDS ORDERED: IBUPROFEN 600 MG TABLET (FP) PO PRN (10:05)
[2022-01-03] MEDS ORDERED: BENZOCAINE/MENTHOL (CHLORASEPTIC ) LOZENGE MM PRN (10:05)
[2022-01-03] MEDS: chlordiazePOXIDE HCL 25 MG CAPSULE PO SCH ×3 (11:42→22:37)
[2022-01-03] MEDS: NICOTINE 21 MG/24 HOURS TOPICAL PATCH TD SCH (11:43)
[2022-01-03] MEDS: PRENATAL VITAMINS W/ FOLIC ACID TABLET (FP) PO SCH (11:43)
[2022-01-03] MEDS ORDERED: hydrOXYzine PAMOATE 25 MG CAPSULE (FP) PO PRN (14:00)
[2022-01-03 17:17] LABS: HEMATOCRIT 41.7 % (35.4-49); HEMOGLOBIN 13.8 GM/dL (11.7-16.9); MCHC 33.2 g/dl (32.0-35.9); MEAN CELL VOLUME 84.5 fl (80-96); MEAN PLT VOLUME 8.2 fl (7.5-11.1); PLATELET COUNT 302 10^3/uL (134-434); RBC 4.93 M/mm3 (4.00-5.60); RDW 15.1 % (11.9-15.9); WHITE BLOOD COUNT 4.3 K/mm3 (4.0-10.0)
[2022-01-03 17:34] LABS: CALCIUM 9.5 mg/dL (8.5-10.1)
[2022-01-03 17:35] LABS: ALBUMIN 3.6 g/dl (3.4-5.0); BLOOD UREA NITROGEN 20.3 mg/dL (7-18)
[2022-01-03 17:38] LABS: CREATININE 1.3 mg/dL (0.55-1.3)
[2022-01-03 17:39] LABS: BILIRUBIN,TOTAL 0.7 mg/dL (0.2-1); TOT PROT 7.3 g/dl (6.4-8.2)
[2022-01-03] MEDS: THIAMINE HCL 100 MG TABLET (FP) PO SCH (22:37)
[2022-01-03] MEDS: MELATONIN 5 MG TABLETS PO SCH (22:37)
[2022-01-04] MEDS: chlordiazePOXIDE HCL 25 MG CAPSULE PO SCH ×2 (07:01→10:48)
[2022-01-04] MEDS: PRENATAL VITAMINS W/ FOLIC ACID TABLET (FP) PO SCH (10:47)
[2022-01-04] MEDS: NICOTINE 21 MG/24 HOURS TOPICAL PATCH TD SCH (10:48)
[2022-01-04] MEDS ORDERED: LORazepam 1 MG TABLET PO PRN (13:22)
[2022-01-04] MEDS ORDERED: LORazepam 2 MG TABLET PO SCH (17:00)
[2022-01-04] MEDS: MELATONIN 5 MG TABLETS PO SCH (23:16)
[2022-01-04] MEDS: THIAMINE HCL 100 MG TABLET (FP) PO SCH (23:16)
[2022-01-04] MEDS: LORazepam 1 MG TABLET PO SCH (23:16)
[2022-01-05] MEDS ORDERED: chlordiazePOXIDE HCL 25 MG CAPSULE PO SCH (05:00)
[2022-01-05] MEDS: LORazepam 1 MG TABLET PO SCH ×4 (07:19→23:13)
[2022-01-05] MEDS: PRENATAL VITAMINS W/ FOLIC ACID TABLET (FP) PO SCH (10:18)
[2022-01-05] MEDS: NICOTINE 21 MG/24 HOURS TOPICAL PATCH TD SCH (10:20)
[2022-01-05] MEDS: THIAMINE HCL 100 MG TABLET (FP) PO SCH (23:13)
[2022-01-05] MEDS: MELATONIN 5 MG TABLETS PO SCH (23:13)
[2022-01-06] MEDS ORDERED: chlordiazePOXIDE HCL 10 MG CAPSULE PO PRN
[2022-01-06] MEDS ORDERED: chlordiazePOXIDE HCL 10 MG CAPSULE PO SCH (05:00)
[2022-01-06 06:14] VITALS: RESP 18
[2022-01-06] MEDS: LORazepam 0.5 MG TABLET PO SCH ×2 (07:16→10:10)
[2022-01-06 08:52] VITALS: BP 123/77; PULSE 64; TEMP 98.1
[2022-01-06] MEDS: NICOTINE 21 MG/24 HOURS TOPICAL PATCH TD SCH (10:10)
[2022-01-06] MEDS: PRENATAL VITAMINS W/ FOLIC ACID TABLET (FP) PO SCH (10:10)
[2022-01-07] MEDS ORDERED: LORazepam 0.5 MG TABLET PO PRN
[2022-01-07] MEDS ORDERED: chlordiazePOXIDE HCL 10 MG CAPSULE PO SCH (05:00)
[2022-01-07] MEDS ORDERED: LORazepam 0.5 MG TABLET PO ONE (05:00)
[2022-01-08] MEDS ORDERED: chlordiazePOXIDE HCL 10 MG CAPSULE PO ONE (05:00)
== END 2022-01-06 10:13 | disposition home or self-care (01) | DRG 774 ==
LOC: YASAS 08:33 → Y3N 10:41
PROVIDERS: ADMIT Allergy & Immunology; ATTEND Surgery
PROC: HZ2ZZZZ Detoxification Services for Substance Abuse Treatment (ICD-10-PCS; principal; 2022-01-03)
DX: F10.230 Alcohol dependence with withdrawal, uncomplicated (principal); F14.20 Cocaine dependence, uncomplicated; F17.210 Nicotine dependence, cigarettes, uncomplicated; I10 Essential (primary) hypertension; I25.2 Old myocardial infarction; M17.11 Unilateral primary osteoarthritis, right knee
CPT/HCPCS: 36415; 80053; 85027; 86780; C9803-CS; U0003; U0005

== ENCOUNTER 2022-01-20 11:25 | Inpatient (IN) | payer OTHER ==
[2022-01-20 12:50] VITALS: BMI 21.5
[2022-01-20] MEDS ORDERED: METHOCARBAMOL 500 MG TABLET PO PRN (14:20)
[2022-01-20] MEDS ORDERED: MAG HYDROX/AL HYDROX/SIMETH 30 ML UNIT-DOSE CUP PO PRN (14:20)
[2022-01-20] MEDS ORDERED: MAGNESIUM CITRATE 300 ML BOTTLE PO PRN (14:20)
[2022-01-20] MEDS ORDERED: DICYCLOMINE HCL 10 MG CAPSULE PO PRN (14:20)
[2022-01-20] MEDS ORDERED: ACETAMINOPHEN 325 MG TABLET (FP) PO PRN ×2 (14:20)
[2022-01-20] MEDS ORDERED: ONDANSETRON *ODT* 4 MG TABLET SL PRN (14:20)
[2022-01-20] MEDS ORDERED: LOPERAMIDE HCL 2 MG CAPSULE PO PRN (14:20)
[2022-01-20] MEDS ORDERED: MAGNESIUM HYDROX 2400MG/30ML ORAL SUSPENSION 30 ML CUP PO PRN (14:20)
[2022-01-20] MEDS ORDERED: NALOXONE HCL (KLOXXADO) 8 MG SPRAY NS PRN (14:20)
[2022-01-20] MEDS ORDERED: BISMUTH SUBSALICYLATE 524 MG/30 ML PO PRN (14:20)
[2022-01-20] MEDS ORDERED: IBUPROFEN 600 MG TABLET (FP) PO PRN (14:20)
[2022-01-20] MEDS ORDERED: IBUPROFEN 400 MG TABLET (FP) PO PRN (14:20)
[2022-01-20] MEDS ORDERED: BENZOCAINE/MENTHOL (CHLORASEPTIC ) LOZENGE MM PRN (14:20)
[2022-01-20] MEDS ORDERED: chlordiazePOXIDE HCL 25 MG CAPSULE PO PRN (14:20)
[2022-01-20] MEDS ORDERED: hydrOXYzine PAMOATE 25 MG CAPSULE (FP) PO PRN (18:00)
[2022-01-20] MEDS: chlordiazePOXIDE HCL 25 MG CAPSULE PO SCH ×2 (18:24→23:09)
[2022-01-20] MEDS: THIAMINE HCL 100 MG TABLET (FP) PO SCH (23:09)
[2022-01-20] MEDS: MELATONIN 5 MG TABLETS PO SCH (23:09)
[2022-01-21] MEDS: chlordiazePOXIDE HCL 25 MG CAPSULE PO SCH ×4 (05:29→22:30)
[2022-01-21 09:42] LABS: HEMATOCRIT 37.6 % (35.4-49); MCH 29.2 pg (25.7-33.7); MCHC 34.7 g/dl (32.0-35.9); MEAN CELL VOLUME 84.3 fl (80-96); MEAN PLT VOLUME 7.5 fl (7.5-11.1); PLATELET COUNT 217 10^3/uL (134-434); RBC 4.46 M/mm3 (4.00-5.60); RDW 14.7 % (11.9-15.9); WHITE BLOOD COUNT 4.1 K/mm3 (4.0-10.0)
[2022-01-21 09:46] LABS: CREATININE 0.9 mg/dL (0.55-1.3)
[2022-01-21 09:47] LABS: ALBUMIN 3.2 g/dl (3.4-5.0); BILIRUBIN,TOTAL 0.4 mg/dL (0.2-1); BLOOD UREA NITROGEN 15.5 mg/dL (7-18); CALCIUM 9.3 mg/dL (8.5-10.1); TOT PROT 6.3 g/dl (6.4-8.2)
[2022-01-21] MEDS: PRENATAL VITAMINS W/ FOLIC ACID TABLET (FP) PO SCH (11:11)
[2022-01-21] MEDS: THIAMINE HCL 100 MG TABLET (FP) PO SCH (22:30)
[2022-01-21] MEDS: MELATONIN 5 MG TABLETS PO SCH (22:30)
[2022-01-22] MEDS: chlordiazePOXIDE HCL 25 MG CAPSULE PO SCH ×4 (06:11→22:59)
[2022-01-22] MEDS: PRENATAL VITAMINS W/ FOLIC ACID TABLET (FP) PO SCH (10:24)
[2022-01-22] MEDS: MELATONIN 5 MG TABLETS PO SCH (22:59)
[2022-01-22] MEDS: THIAMINE HCL 100 MG TABLET (FP) PO SCH (22:59)
[2022-01-23] MEDS ORDERED: chlordiazePOXIDE HCL 10 MG CAPSULE PO PRN
[2022-01-23] MEDS: chlordiazePOXIDE HCL 10 MG CAPSULE PO SCH ×4 (05:08→23:01)
[2022-01-23] MEDS: PRENATAL VITAMINS W/ FOLIC ACID TABLET (FP) PO SCH (10:09)
[2022-01-23] MEDS: THIAMINE HCL 100 MG TABLET (FP) PO SCH (23:01)
[2022-01-23] MEDS: MELATONIN 5 MG TABLETS PO SCH (23:01)
[2022-01-24] MEDS: chlordiazePOXIDE HCL 10 MG CAPSULE PO SCH ×2 (05:33→18:35)
[2022-01-24] MEDS: PRENATAL VITAMINS W/ FOLIC ACID TABLET (FP) PO SCH (11:25)
[2022-01-24 21:33] VITALS: RESP 18
[2022-01-24] MEDS: THIAMINE HCL 100 MG TABLET (FP) PO SCH (22:45)
[2022-01-24] MEDS: MELATONIN 5 MG TABLETS PO SCH (22:45)
[2022-01-25] MEDS ORDERED: chlordiazePOXIDE HCL 10 MG CAPSULE PO ONE (05:00)
[2022-01-25] MEDS: PRENATAL VITAMINS W/ FOLIC ACID TABLET (FP) PO SCH (11:10)
[2022-01-25 12:30] VITALS: BP 116/65; PULSE 82; TEMP 97.1
== END 2022-01-25 13:45 | disposition home or self-care (01) | DRG 774 ==
LOC: YASAS 11:25 → Y6N 14:21
PROVIDERS: ADMIT Allergy & Immunology; ATTEND Surgery
PROC: HZ2ZZZZ Detoxification Services for Substance Abuse Treatment (ICD-10-PCS; principal; 2022-01-20)
DX: F10.230 Alcohol dependence with withdrawal, uncomplicated (principal); F14.20 Cocaine dependence, uncomplicated; F17.210 Nicotine dependence, cigarettes, uncomplicated; I10 Essential (primary) hypertension; I25.2 Old myocardial infarction; M17.11 Unilateral primary osteoarthritis, right knee
CPT/HCPCS: 36415; 80053; 85027; 86780; C9803-CS; U0003; U0005

== ENCOUNTER 2022-02-14 02:51 | Inpatient (IN) | payer OTHER ==
[2022-02-14] MEDS ORDERED: MAGNESIUM CITRATE 300 ML BOTTLE PO PRN (03:35)
[2022-02-14] MEDS ORDERED: LOPERAMIDE HCL 2 MG CAPSULE PO PRN (03:35)
[2022-02-14] MEDS ORDERED: ONDANSETRON *ODT* 4 MG TABLET SL PRN (03:35)
[2022-02-14] MEDS ORDERED: chlordiazePOXIDE HCL 25 MG CAPSULE PO PRN (03:35)
[2022-02-14] MEDS ORDERED: NICOTINE POLACRILEX 4 MG GUM BUC PRN (03:35)
[2022-02-14] MEDS ORDERED: NALOXONE HCL (KLOXXADO) 8 MG SPRAY NS PRN (03:35)
[2022-02-14] MEDS ORDERED: ACETAMINOPHEN 325 MG TABLET (FP) PO PRN (03:35)
[2022-02-14] MEDS ORDERED: MAG HYDROX/AL HYDROX/SIMETH 30 ML UNIT-DOSE CUP PO PRN (03:35)
[2022-02-14] MEDS ORDERED: DICYCLOMINE HCL 10 MG CAPSULE PO PRN (03:35)
[2022-02-14] MEDS ORDERED: BISMUTH SUBSALICYLATE 524 MG/30 ML PO PRN (03:35)
[2022-02-14] MEDS ORDERED: MAGNESIUM HYDROX 2400MG/30ML ORAL SUSPENSION 30 ML CUP PO PRN (03:35)
[2022-02-14] MEDS ORDERED: IBUPROFEN 400 MG TABLET (FP) PO PRN (03:35)
[2022-02-14 04:09] VITALS: BMI 25.1
[2022-02-14] MEDS: chlordiazePOXIDE HCL 25 MG CAPSULE PO SCH ×4 (05:46→22:42)
[2022-02-14] MEDS: PRENATAL VITAMINS W/ FOLIC ACID TABLET (FP) PO SCH (12:06)
[2022-02-14] MEDS: NICOTINE 21 MG/24 HOURS TOPICAL PATCH TD SCH (12:06)
[2022-02-14] MEDS: ACETAMINOPHEN 325 MG TABLET (FP) PO PRN (12:08)
[2022-02-14] MEDS: BENZOCAINE/MENTHOL (CHLORASEPTIC ) LOZENGE MM PRN ×2 (12:08→17:44)
[2022-02-14] MEDS: MELATONIN 5 MG TABLETS PO SCH (22:43)
[2022-02-14] MEDS: THIAMINE HCL 100 MG TABLET (FP) PO SCH (22:43)
[2022-02-14] MEDS: METHOCARBAMOL 500 MG TABLET PO PRN (22:43)
[2022-02-15] MEDS: chlordiazePOXIDE HCL 25 MG CAPSULE PO SCH ×4 (06:30→22:53)
[2022-02-15] MEDS: NICOTINE 21 MG/24 HOURS TOPICAL PATCH TD SCH (11:18)
[2022-02-15] MEDS: PRENATAL VITAMINS W/ FOLIC ACID TABLET (FP) PO SCH (11:18)
[2022-02-15 13:50] LABS: ALBUMIN 3.2 g/dl (3.4-5.0); BLOOD UREA NITROGEN 12.6 mg/dL (7-18); CALCIUM 9.1 mg/dL (8.5-10.1)
[2022-02-15 13:50] LABS: HEMATOCRIT 38.9 % (35.4-49); HEMOGLOBIN 12.9 GM/dL (11.7-16.9); MCH 27.7 pg (25.7-33.7); MCHC 33.2 g/dl (32.0-35.9); MEAN CELL VOLUME 83.2 fl (80-96); MEAN PLT VOLUME 7.9 fl (7.5-11.1); PLATELET COUNT 255 10^3/uL (134-434); RBC 4.67 M/mm3 (4.00-5.60); RDW 15.1 % (11.9-15.9); WHITE BLOOD COUNT 5.9 K/mm3 (4.0-10.0)
[2022-02-15 13:54] LABS: BILIRUBIN,TOTAL 0.4 mg/dL (0.2-1); TOT PROT 6.4 g/dl (6.4-8.2)
[2022-02-15] MEDS: METHOCARBAMOL 500 MG TABLET PO PRN (17:52)
[2022-02-15] MEDS: MELATONIN 5 MG TABLETS PO SCH (22:53)
[2022-02-15] MEDS: THIAMINE HCL 100 MG TABLET (FP) PO SCH (22:53)
[2022-02-15] MEDS: IBUPROFEN 600 MG TABLET (FP) PO PRN (22:54)
[2022-02-16] MEDS ORDERED: chlordiazePOXIDE HCL 10 MG CAPSULE PO PRN
[2022-02-16] MEDS: chlordiazePOXIDE HCL 10 MG CAPSULE PO SCH ×4 (05:21→22:33)
[2022-02-16] MEDS: METHOCARBAMOL 500 MG TABLET PO PRN ×2 (05:23→17:31)
[2022-02-16] MEDS: NICOTINE 21 MG/24 HOURS TOPICAL PATCH TD SCH (10:46)
[2022-02-16] MEDS: ACETAMINOPHEN 325 MG TABLET (FP) PO PRN (10:47)
[2022-02-16] MEDS: PRENATAL VITAMINS W/ FOLIC ACID TABLET (FP) PO SCH (10:47)
[2022-02-16] MEDS: MELATONIN 5 MG TABLETS PO SCH (22:33)
[2022-02-16] MEDS: THIAMINE HCL 100 MG TABLET (FP) PO SCH (22:33)
[2022-02-17] MEDS: chlordiazePOXIDE HCL 10 MG CAPSULE PO SCH ×2 (06:13→18:39)
[2022-02-17] MEDS: PRENATAL VITAMINS W/ FOLIC ACID TABLET (FP) PO SCH (10:43)
[2022-02-17] MEDS: IBUPROFEN 600 MG TABLET (FP) PO PRN (10:43)
[2022-02-17] MEDS: NICOTINE 21 MG/24 HOURS TOPICAL PATCH TD SCH (10:44)
[2022-02-17 21:14] VITALS: RESP 19; TEMP 97.7
[2022-02-17] MEDS: MELATONIN 5 MG TABLETS PO SCH (22:19)
[2022-02-17] MEDS: THIAMINE HCL 100 MG TABLET (FP) PO SCH (22:19)
[2022-02-18] MEDS ORDERED: chlordiazePOXIDE HCL 10 MG CAPSULE PO ONE (05:00)
[2022-02-18 06:48] VITALS: BP 111/69; PULSE 80
[2022-02-18] MEDS: IBUPROFEN 600 MG TABLET (FP) PO PRN (08:55)
== END 2022-02-18 09:36 | disposition home or self-care (01) | DRG 774 ==
LOC: YASAS 02:51 → Y3N 04:09
PROVIDERS: ADMIT Allergy & Immunology; ATTEND Surgery
PROC: HZ2ZZZZ Detoxification Services for Substance Abuse Treatment (ICD-10-PCS; principal; 2022-02-14)
DX: F10.230 Alcohol dependence with withdrawal, uncomplicated (principal); F14.20 Cocaine dependence, uncomplicated; F17.210 Nicotine dependence, cigarettes, uncomplicated; F32.A Depression, unspecified; I10 Essential (primary) hypertension; I25.2 Old myocardial infarction; M17.11 Unilateral primary osteoarthritis, right knee
CPT/HCPCS: 36415; 80053; 85027; 86780; 87811; C9803-CS; U0003; U0005

== ENCOUNTER 2022-02-24 01:37 | Inpatient (IN) | payer OTHER ==
[2022-02-24 01:40] VITALS: BMI 24.3
[2022-02-24] MEDS ORDERED: guaiFENesin 200 MG/10 ML 10 ML UNIT-DOSE CUPS PO PRN (01:53)
[2022-02-24] MEDS ORDERED: BISMUTH SUBSALICYLATE 524 MG/30 ML PO PRN (01:53)
[2022-02-24] MEDS ORDERED: DICYCLOMINE HCL 10 MG CAPSULE PO PRN (01:53)
[2022-02-24] MEDS ORDERED: MAG HYDROX/AL HYDROX/SIMETH 30 ML UNIT-DOSE CUP PO PRN (01:53)
[2022-02-24] MEDS ORDERED: hydrOXYzine PAMOATE 25 MG CAPSULE (FP) PO PRN (01:53)
[2022-02-24] MEDS ORDERED: ACETAMINOPHEN 325 MG TABLET (FP) PO PRN ×2 (01:53)
[2022-02-24] MEDS ORDERED: METHOCARBAMOL 500 MG TABLET PO PRN (01:53)
[2022-02-24] MEDS ORDERED: LOPERAMIDE HCL 2 MG CAPSULE PO PRN (01:53)
[2022-02-24] MEDS ORDERED: NALOXONE HCL (KLOXXADO) 8 MG SPRAY NS PRN (01:53)
[2022-02-24] MEDS ORDERED: MAGNESIUM CITRATE 300 ML BOTTLE PO PRN (01:53)
[2022-02-24] MEDS ORDERED: NICOTINE POLACRILEX 4 MG GUM BUC PRN (01:53)
[2022-02-24] MEDS ORDERED: IBUPROFEN 600 MG TABLET (FP) PO PRN (01:53)
[2022-02-24] MEDS ORDERED: P-EPHED 60MG/TRIPROLIDI 2.5MG TABLET PO PRN (01:53)
[2022-02-24] MEDS ORDERED: MAGNESIUM HYDROX 2400MG/30ML ORAL SUSPENSION 30 ML CUP PO PRN (01:53)
[2022-02-24] MEDS ORDERED: ONDANSETRON *ODT* 4 MG TABLET SL PRN (01:53)
[2022-02-24] MEDS ORDERED: IBUPROFEN 400 MG TABLET (FP) PO PRN (01:53)
[2022-02-24] MEDS ORDERED: BENZOCAINE/MENTHOL (CHLORASEPTIC ) LOZENGE MM PRN (01:53)
[2022-02-24] MEDS: NICOTINE 21 MG/24 HOURS TOPICAL PATCH TD SCH (10:36)
[2022-02-24] MEDS: PRENATAL VITAMINS W/ FOLIC ACID TABLET (FP) PO SCH (10:37)
[2022-02-24] MEDS ORDERED: MELATONIN 5 MG TABLETS PO SCH (22:00)
[2022-02-24] MEDS ORDERED: THIAMINE HCL 100 MG TABLET (FP) PO SCH (22:00)
[2022-02-25 09:09] VITALS: BP 125/67; PULSE 84; RESP 18; TEMP 98.6
[2022-02-25] MEDS: NICOTINE 21 MG/24 HOURS TOPICAL PATCH TD SCH (11:07)
[2022-02-25] MEDS: PRENATAL VITAMINS W/ FOLIC ACID TABLET (FP) PO SCH (11:07)
== END 2022-02-25 10:29 | disposition home or self-care (01) | DRG 774 ==
LOC: YASAS 01:37 → Y3N 03:06 → UNDOADMIN 03:06 → UNDODISIN 02-25 10:29
PROVIDERS: ADMIT Allergy & Immunology; ATTEND Allergy & Immunology
PROC: HZ2ZZZZ Detoxification Services for Substance Abuse Treatment (ICD-10-PCS; principal; 2022-02-24)
DX: F10.230 Alcohol dependence with withdrawal, uncomplicated (principal); F14.20 Cocaine dependence, uncomplicated; F17.210 Nicotine dependence, cigarettes, uncomplicated; I10 Essential (primary) hypertension; M17.11 Unilateral primary osteoarthritis, right knee; I25.2 Old myocardial infarction
CPT/HCPCS: C9803-CS; U0003; U0005

== ENCOUNTER 2022-02-28 01:02 | Inpatient (IN) | payer OTHER ==
[2022-02-28 01:31] VITALS: BMI 24.5
[2022-02-28] MEDS ORDERED: NALOXONE HCL (KLOXXADO) 8 MG SPRAY NS PRN (01:51)
[2022-02-28] MEDS ORDERED: guaiFENesin 200 MG/10 ML 10 ML UNIT-DOSE CUPS PO PRN (01:51)
[2022-02-28] MEDS ORDERED: P-EPHED 60MG/TRIPROLIDI 2.5MG TABLET PO PRN (01:51)
[2022-02-28] MEDS ORDERED: IBUPROFEN 400 MG TABLET (FP) PO PRN (01:51)
[2022-02-28] MEDS ORDERED: BENZOCAINE/MENTHOL (CHLORASEPTIC ) LOZENGE MM PRN (01:51)
[2022-02-28] MEDS ORDERED: NICOTINE POLACRILEX 4 MG GUM BUC PRN (01:51)
[2022-02-28] MEDS ORDERED: MAG HYDROX/AL HYDROX/SIMETH 30 ML UNIT-DOSE CUP PO PRN (01:51)
[2022-02-28] MEDS ORDERED: LOPERAMIDE HCL 2 MG CAPSULE PO PRN (01:51)
[2022-02-28] MEDS ORDERED: BISMUTH SUBSALICYLATE 524 MG/30 ML PO PRN (01:51)
[2022-02-28] MEDS ORDERED: ONDANSETRON *ODT* 4 MG TABLET SL PRN (01:51)
[2022-02-28] MEDS ORDERED: MAGNESIUM CITRATE 300 ML BOTTLE PO PRN (01:51)
[2022-02-28] MEDS ORDERED: DICYCLOMINE HCL 10 MG CAPSULE PO PRN (01:51)
[2022-02-28] MEDS ORDERED: LORazepam 1 MG TABLET PO PRN (01:51)
[2022-02-28] MEDS ORDERED: ACETAMINOPHEN 325 MG TABLET (FP) PO PRN (01:51)
[2022-02-28] MEDS ORDERED: MAGNESIUM HYDROX 2400MG/30ML ORAL SUSPENSION 30 ML CUP PO PRN (01:51)
[2022-02-28] MEDS ORDERED: LORazepam 1 MG TABLET ONE ×2 (05:56→11:11)
[2022-02-28] MEDS: LORazepam 2 MG TABLET PO SCH ×4 (05:57→22:59)
[2022-02-28] MEDS: PRENATAL VITAMINS W/ FOLIC ACID TABLET (FP) PO SCH (11:26)
[2022-02-28] MEDS: NICOTINE 21 MG/24 HOURS TOPICAL PATCH TD SCH (11:26)
[2022-02-28] MEDS: IBUPROFEN 600 MG TABLET (FP) PO PRN ×2 (11:27→17:30)
[2022-02-28] MEDS ORDERED: LORazepam 0.5 MG TABLET PO PRN (16:59)
[2022-02-28] MEDS: MELATONIN 5 MG TABLETS PO SCH (22:59)
[2022-02-28] MEDS: THIAMINE HCL 100 MG TABLET (FP) PO SCH (22:59)
[2022-03-01] MEDS ORDERED: LORazepam 1 MG TABLET PO SCH (05:00)
[2022-03-01] MEDS: LORazepam 0.5 MG TABLET PO SCH ×4 (06:07→22:39)
[2022-03-01] MEDS: ACETAMINOPHEN 325 MG TABLET (FP) PO PRN ×2 (06:08→17:29)
[2022-03-01] MEDS: PRENATAL VITAMINS W/ FOLIC ACID TABLET (FP) PO SCH (10:53)
[2022-03-01] MEDS: NICOTINE 21 MG/24 HOURS TOPICAL PATCH TD SCH (10:53)
[2022-03-01] MEDS: MELATONIN 5 MG TABLETS PO SCH (22:39)
[2022-03-01] MEDS: THIAMINE HCL 100 MG TABLET (FP) PO SCH (22:39)
[2022-03-02] MEDS ORDERED: LORazepam 0.5 MG TABLET PO PRN
[2022-03-02] MEDS: LORazepam 0.5 MG TABLET PO SCH ×4 (05:37→22:57)
[2022-03-02] MEDS: ACETAMINOPHEN 325 MG TABLET (FP) PO PRN (05:38)
[2022-03-02] MEDS: NICOTINE 21 MG/24 HOURS TOPICAL PATCH TD SCH (10:11)
[2022-03-02] MEDS: PRENATAL VITAMINS W/ FOLIC ACID TABLET (FP) PO SCH (10:12)
[2022-03-02] MEDS: MELATONIN 5 MG TABLETS PO SCH (22:58)
[2022-03-02] MEDS: THIAMINE HCL 100 MG TABLET (FP) PO SCH (22:58)
[2022-03-03] MEDS ORDERED: LORazepam 0.5 MG TABLET PO ONE (05:00)
[2022-03-03 09:40] VITALS: BP 113/66; PULSE 74; RESP 17; TEMP 97.1
== END 2022-03-03 09:36 | disposition home or self-care (01) | DRG 774 ==
LOC: YASAS 01:02 → Y3N 10:00 → Y6N 10:58
PROVIDERS: ADMIT Allergy & Immunology; ATTEND Surgery
PROC: HZ2ZZZZ Detoxification Services for Substance Abuse Treatment (ICD-10-PCS; principal; 2022-02-28)
DX: F10.230 Alcohol dependence with withdrawal, uncomplicated (principal); F14.20 Cocaine dependence, uncomplicated; F17.210 Nicotine dependence, cigarettes, uncomplicated; F32.A Depression, unspecified; I10 Essential (primary) hypertension; M17.11 Unilateral primary osteoarthritis, right knee; I25.2 Old myocardial infarction; Z86.69 Personal history of other diseases of the nervous system and sense organs; Z56.0 Unemployment, unspecified; Z59.01 Sheltered homelessness
CPT/HCPCS: C9803-CS; U0003; U0005

== ENCOUNTER 2022-03-14 05:40 | Inpatient (IN) | payer OTHER ==
[2022-03-14] MEDS ORDERED: ONDANSETRON *ODT* 4 MG TABLET SL PRN (06:01)
[2022-03-14] MEDS ORDERED: BENZOCAINE/MENTHOL (CHLORASEPTIC ) LOZENGE MM PRN (06:01)
[2022-03-14] MEDS ORDERED: ACETAMINOPHEN 325 MG TABLET (FP) PO PRN ×2 (06:01)
[2022-03-14] MEDS ORDERED: LOPERAMIDE HCL 2 MG CAPSULE PO PRN (06:01)
[2022-03-14] MEDS ORDERED: IBUPROFEN 400 MG TABLET (FP) PO PRN (06:01)
[2022-03-14] MEDS ORDERED: BISMUTH SUBSALICYLATE 524 MG/30 ML PO PRN (06:01)
[2022-03-14] MEDS ORDERED: MAG HYDROX/AL HYDROX/SIMETH 30 ML UNIT-DOSE CUP PO PRN (06:01)
[2022-03-14] MEDS ORDERED: NICOTINE POLACRILEX 2 MG GUM BUC PRN (06:01)
[2022-03-14] MEDS ORDERED: NALOXONE HCL (KLOXXADO) 8 MG SPRAY NS PRN (06:01)
[2022-03-14] MEDS ORDERED: MAGNESIUM CITRATE 300 ML BOTTLE PO PRN (06:01)
[2022-03-14] MEDS ORDERED: MAGNESIUM HYDROX 2400MG/30ML ORAL SUSPENSION 30 ML CUP PO PRN (06:01)
[2022-03-14] MEDS ORDERED: DICYCLOMINE HCL 10 MG CAPSULE PO PRN (06:01)
[2022-03-14 06:26] VITALS: BMI 24.7
[2022-03-14] MEDS: PRENATAL VITAMINS W/ FOLIC ACID TABLET (FP) PO SCH (10:37)
[2022-03-14] MEDS: NICOTINE 21 MG/24 HOURS TOPICAL PATCH TD SCH (10:37)
[2022-03-14] MEDS: IBUPROFEN 600 MG TABLET (FP) PO PRN (10:38)
[2022-03-14] MEDS ORDERED: LORazepam 1 MG TABLET PO PRN (11:25)
[2022-03-14] MEDS ORDERED: LORazepam 2 MG TABLET PO SCH (11:45)
[2022-03-14] MEDS: LORazepam 1 MG TABLET PO SCH ×3 (12:01→22:30)
[2022-03-14 13:34] LABS: HEMATOCRIT 37.6 % (35.4-49); HEMOGLOBIN 13.3 GM/dL (11.7-16.9); MCH 29.5 pg (25.7-33.7); MCHC 35.4 g/dl (32.0-35.9); MEAN CELL VOLUME 83.3 fl (80-96); PLATELET COUNT 298 10^3/uL (134-434); RBC 4.51 M/mm3 (4.00-5.60)
[2022-03-14 13:54] LABS: ALBUMIN 3.7 g/dl (3.4-5.0); BLOOD UREA NITROGEN 23.6 mg/dL (7-18)
[2022-03-14 13:57] LABS: CREATININE 1.1 mg/dL (0.55-1.3)
[2022-03-14 13:59] LABS: BILIRUBIN,TOTAL 0.3 mg/dL (0.2-1); TOT PROT 7.3 g/dl (6.4-8.2)
[2022-03-14] MEDS: THIAMINE HCL 100 MG TABLET (FP) PO SCH (22:30)
[2022-03-14] MEDS: MELATONIN 5 MG TABLETS PO SCH (22:30)
[2022-03-14] MEDS: METHOCARBAMOL 500 MG TABLET PO PRN (22:30)
[2022-03-15] MEDS: LORazepam 1 MG TABLET PO SCH ×4 (06:08→23:18)
[2022-03-15] MEDS: NICOTINE 21 MG/24 HOURS TOPICAL PATCH TD SCH (10:34)
[2022-03-15] MEDS: PRENATAL VITAMINS W/ FOLIC ACID TABLET (FP) PO SCH (10:35)
[2022-03-15] MEDS: IBUPROFEN 600 MG TABLET (FP) PO PRN (10:35)
[2022-03-15] MEDS: METHOCARBAMOL 500 MG TABLET PO PRN (10:35)
[2022-03-15] MEDS: THIAMINE HCL 100 MG TABLET (FP) PO SCH (23:17)
[2022-03-15] MEDS: MELATONIN 5 MG TABLETS PO SCH (23:17)
[2022-03-16] MEDS ORDERED: LORazepam 1 MG TABLET PO SCH (05:00)
[2022-03-16] MEDS: LORazepam 0.5 MG TABLET PO SCH ×4 (06:45→23:31)
[2022-03-16] MEDS: PRENATAL VITAMINS W/ FOLIC ACID TABLET (FP) PO SCH (10:48)
[2022-03-16] MEDS: NICOTINE 21 MG/24 HOURS TOPICAL PATCH TD SCH (10:48)
[2022-03-16] MEDS: MELATONIN 5 MG TABLETS PO SCH (23:31)
[2022-03-16] MEDS: THIAMINE HCL 100 MG TABLET (FP) PO SCH (23:31)
[2022-03-17] MEDS ORDERED: LORazepam 0.5 MG TABLET PO PRN
[2022-03-17] MEDS: NICOTINE 21 MG/24 HOURS TOPICAL PATCH TD SCH (10:57)
[2022-03-17] MEDS: PRENATAL VITAMINS W/ FOLIC ACID TABLET (FP) PO SCH (10:57)
[2022-03-17 13:46] VITALS: RESP 18
[2022-03-17] MEDS: MELATONIN 5 MG TABLETS PO SCH (23:18)
[2022-03-17] MEDS: THIAMINE HCL 100 MG TABLET (FP) PO SCH (23:18)
[2022-03-18] MEDS ORDERED: LORazepam 0.5 MG TABLET PO ONE (05:00)
[2022-03-18 06:49] VITALS: BP 113/67; PULSE 63; TEMP 97.1
[2022-03-18] MEDS: NICOTINE 21 MG/24 HOURS TOPICAL PATCH TD SCH (09:28)
[2022-03-18] MEDS: PRENATAL VITAMINS W/ FOLIC ACID TABLET (FP) PO SCH (09:28)
== END 2022-03-18 09:12 | disposition home or self-care (01) | DRG 774 ==
LOC: YASAS 05:40 → Y6N 06:19
PROVIDERS: ADMIT Allergy & Immunology; ATTEND Allergy & Immunology
PROC: HZ2ZZZZ Detoxification Services for Substance Abuse Treatment (ICD-10-PCS; principal; 2022-03-14)
DX: F10.230 Alcohol dependence with withdrawal, uncomplicated (principal); F14.20 Cocaine dependence, uncomplicated; F17.210 Nicotine dependence, cigarettes, uncomplicated; F32.A Depression, unspecified; I10 Essential (primary) hypertension; M17.11 Unilateral primary osteoarthritis, right knee; I25.2 Old myocardial infarction; Z56.0 Unemployment, unspecified; Z59.01 Sheltered homelessness
CPT/HCPCS: 36415; 80053; 85027; 86780; C9803-CS; U0003; U0005

== ENCOUNTER 2022-03-26 02:13 | Inpatient (IN) | payer OTHER ==
[2022-03-26 03:02] VITALS: BMI 24.8
[2022-03-26] MEDS ORDERED: METHOCARBAMOL 500 MG TABLET PO PRN (04:31)
[2022-03-26] MEDS ORDERED: MAG HYDROX/AL HYDROX/SIMETH 30 ML UNIT-DOSE CUP PO PRN (04:31)
[2022-03-26] MEDS ORDERED: BENZOCAINE/MENTHOL (CHLORASEPTIC ) LOZENGE MM PRN (04:31)
[2022-03-26] MEDS ORDERED: DICYCLOMINE HCL 10 MG CAPSULE PO PRN (04:31)
[2022-03-26] MEDS ORDERED: ONDANSETRON *ODT* 4 MG TABLET SL PRN (04:31)
[2022-03-26] MEDS ORDERED: LOPERAMIDE HCL 2 MG CAPSULE PO PRN (04:31)
[2022-03-26] MEDS ORDERED: BISMUTH SUBSALICYLATE 524 MG/30 ML PO PRN (04:31)
[2022-03-26] MEDS ORDERED: NICOTINE POLACRILEX 2 MG GUM BUC PRN (04:31)
[2022-03-26] MEDS ORDERED: POLYETHYLENE GLYCOL (HEALTHYLAX) 3350 17 GM PACKET PO PRN (04:31)
[2022-03-26] MEDS ORDERED: hydrOXYzine PAMOATE 25 MG CAPSULE (FP) PO PRN (04:31)
[2022-03-26] MEDS ORDERED: IBUPROFEN 600 MG TABLET (FP) PO PRN (04:31)
[2022-03-26] MEDS ORDERED: NALOXONE HCL (KLOXXADO) 8 MG SPRAY NS PRN (04:31)
[2022-03-26] MEDS ORDERED: ACETAMINOPHEN 325 MG TABLET (FP) PO PRN ×2 (04:31)
[2022-03-26] MEDS ORDERED: IBUPROFEN 400 MG TABLET (FP) PO PRN (04:31)
[2022-03-26] MEDS ORDERED: MAGNESIUM HYDROX 2400MG/30ML ORAL SUSPENSION 30 ML CUP PO PRN (04:31)
[2022-03-26] MEDS: PRENATAL VITAMINS W/ FOLIC ACID TABLET (FP) PO SCH (10:21)
[2022-03-26] MEDS: NICOTINE 21 MG/24 HOURS TOPICAL PATCH TD SCH (10:21)
[2022-03-26] MEDS ORDERED: MELATONIN 5 MG TABLETS PO SCH (22:00)
[2022-03-26] MEDS ORDERED: THIAMINE HCL 100 MG TABLET (FP) PO SCH (22:00)
[2022-03-27 08:25] VITALS: RESP 18
[2022-03-27 09:11] VITALS: BP 134/69; PULSE 79; TEMP 97.1
[2022-03-27] MEDS: PRENATAL VITAMINS W/ FOLIC ACID TABLET (FP) PO SCH (09:22)
[2022-03-27] MEDS: NICOTINE 21 MG/24 HOURS TOPICAL PATCH TD SCH (09:22)
[2022-03-27 10:02] LABS: ALBUMIN 3.5 g/dl (3.4-5.0); CALCIUM 9.4 mg/dL (8.5-10.1)
[2022-03-27 10:03] LABS: HEMATOCRIT 35.7 % (35.4-49); HEMOGLOBIN 12.4 GM/dL (11.7-16.9); MCHC 34.8 g/dl (32.0-35.9); MEAN CELL VOLUME 83.2 fl (80-96); PLATELET COUNT 303 10^3/uL (134-434); RBC 4.29 M/mm3 (4.00-5.60); WHITE BLOOD COUNT 8.2 K/mm3 (4.0-10.0)
[2022-03-27 10:04] LABS: CREATININE 1.1 mg/dL (0.55-1.3)
[2022-03-27 10:06] LABS: BILIRUBIN,TOTAL 0.4 mg/dL (0.2-1); TOT PROT 7.5 g/dl (6.4-8.2)
== END 2022-03-27 12:30 | disposition home or self-care (01) | DRG 774 ==
LOC: YASAS 02:13 → Y3N 04:41 → Y6N 05:12
PROVIDERS: ADMIT Allergy & Immunology; ATTEND Surgery
PROC: HZ2ZZZZ Detoxification Services for Substance Abuse Treatment (ICD-10-PCS; principal; 2022-03-26)
DX: F10.230 Alcohol dependence with withdrawal, uncomplicated (principal); F14.20 Cocaine dependence, uncomplicated; F17.210 Nicotine dependence, cigarettes, uncomplicated; F32.A Depression, unspecified; M17.11 Unilateral primary osteoarthritis, right knee; Z59.01 Sheltered homelessness; Z56.0 Unemployment, unspecified
CPT/HCPCS: 36415; 80053; 85027; 86780

== ENCOUNTER 2022-04-01 09:29 | Inpatient (IN) | payer OTHER ==
[2022-04-01 11:24] VITALS: BMI 24.7
[2022-04-01] MEDS ORDERED: NICOTINE POLACRILEX 2 MG GUM BUC PRN (11:37)
[2022-04-01] MEDS ORDERED: LORazepam 1 MG TABLET PO PRN (11:37)
[2022-04-01] MEDS ORDERED: IBUPROFEN 600 MG TABLET (FP) PO PRN (11:37)
[2022-04-01] MEDS ORDERED: ONDANSETRON *ODT* 4 MG TABLET SL PRN (11:37)
[2022-04-01] MEDS ORDERED: BISMUTH SUBSALICYLATE 524 MG/30 ML PO PRN (11:37)
[2022-04-01] MEDS ORDERED: MAG HYDROX/AL HYDROX/SIMETH 30 ML UNIT-DOSE CUP PO PRN (11:37)
[2022-04-01] MEDS ORDERED: LOPERAMIDE HCL 2 MG CAPSULE PO PRN (11:37)
[2022-04-01] MEDS ORDERED: DICYCLOMINE HCL 10 MG CAPSULE PO PRN (11:37)
[2022-04-01] MEDS ORDERED: IBUPROFEN 400 MG TABLET (FP) PO PRN (11:37)
[2022-04-01] MEDS ORDERED: MAGNESIUM HYDROX 2400MG/30ML ORAL SUSPENSION 30 ML CUP PO PRN (11:37)
[2022-04-01] MEDS ORDERED: NICOTINE 10 MG CARTRIDGE (INHALER) IH PRN (11:37)
[2022-04-01] MEDS ORDERED: ACETAMINOPHEN 325 MG TABLET (FP) PO PRN ×2 (11:37)
[2022-04-01] MEDS ORDERED: POLYETHYLENE GLYCOL (HEALTHYLAX) 3350 17 GM PACKET PO PRN (11:37)
[2022-04-01] MEDS ORDERED: BENZOCAINE/MENTHOL (CHLORASEPTIC ) LOZENGE MM PRN (11:37)
[2022-04-01] MEDS: LORazepam 2 MG TABLET PO SCH ×3 (12:56→23:14)
[2022-04-01] MEDS: hydrOXYzine PAMOATE 25 MG CAPSULE (FP) PO PRN (12:58)
[2022-04-01] MEDS: METHOCARBAMOL 500 MG TABLET PO PRN (12:58)
[2022-04-01] MEDS: THIAMINE HCL 100 MG TABLET (FP) PO SCH (23:14)
[2022-04-01] MEDS: MELATONIN 5 MG TABLETS PO SCH (23:14)
[2022-04-02] MEDS: LORazepam 2 MG TABLET PO SCH (06:03)
[2022-04-02] MEDS: PRENATAL VITAMINS W/ FOLIC ACID TABLET (FP) PO SCH (10:24)
[2022-04-02] MEDS: LORazepam 1 MG TABLET PO SCH ×3 (10:25→23:08)
[2022-04-02 12:20] LABS: CALCIUM 9.1 mg/dL (8.5-10.1)
[2022-04-02 12:21] LABS: ALBUMIN 3.2 g/dl (3.4-5.0); BLOOD UREA NITROGEN 16.9 mg/dL (7-18)
[2022-04-02 12:23] LABS: CREATININE 1.1 mg/dL (0.55-1.3)
[2022-04-02 12:25] LABS: BILIRUBIN,TOTAL 0.4 mg/dL (0.2-1); TOT PROT 6.9 g/dl (6.4-8.2)
[2022-04-02 12:39] LABS: HEMATOCRIT 38.8 % (35.4-49); HEMOGLOBIN 12.7 GM/dL (11.7-16.9); MCH 27.6 pg (25.7-33.7); MCHC 32.8 g/dl (32.0-35.9); MEAN PLT VOLUME 7.5 fl (7.5-11.1); PLATELET COUNT 389 10^3/uL (134-434); RBC 4.62 M/mm3 (4.00-5.60); WHITE BLOOD COUNT 4.6 K/mm3 (4.0-10.0)
[2022-04-02] MEDS: hydrOXYzine PAMOATE 25 MG CAPSULE (FP) PO PRN (17:58)
[2022-04-02] MEDS: METHOCARBAMOL 500 MG TABLET PO PRN (17:58)
[2022-04-02] MEDS: THIAMINE HCL 100 MG TABLET (FP) PO SCH (23:08)
[2022-04-02] MEDS: MELATONIN 5 MG TABLETS PO SCH (23:08)
[2022-04-03] MEDS: LORazepam 1 MG TABLET PO SCH ×3 (06:28→17:48)
[2022-04-03] MEDS: PRENATAL VITAMINS W/ FOLIC ACID TABLET (FP) PO SCH (11:48)
[2022-04-03] MEDS: hydrOXYzine PAMOATE 25 MG CAPSULE (FP) PO PRN (17:48)
[2022-04-03] MEDS: METHOCARBAMOL 500 MG TABLET PO PRN (17:48)
[2022-04-04] MEDS ORDERED: LORazepam 0.5 MG TABLET PO PRN
[2022-04-04] MEDS: MELATONIN 5 MG TABLETS PO SCH ×2 (00:25→22:48)
[2022-04-04] MEDS: LORazepam 1 MG TABLET PO SCH (00:25)
[2022-04-04] MEDS: THIAMINE HCL 100 MG TABLET (FP) PO SCH ×2 (00:25→22:48)
[2022-04-04] MEDS: LORazepam 0.5 MG TABLET PO SCH ×4 (05:34→22:48)
[2022-04-04] MEDS: PRENATAL VITAMINS W/ FOLIC ACID TABLET (FP) PO SCH (10:05)
[2022-04-05] MEDS ORDERED: LORazepam 0.5 MG TABLET PO ONE (05:00)
[2022-04-05 09:40] VITALS: BP 101/50; PULSE 80; RESP 16; TEMP 98.2
[2022-04-05] MEDS: PRENATAL VITAMINS W/ FOLIC ACID TABLET (FP) PO SCH (10:15)
== END 2022-04-05 10:40 | disposition home or self-care (01) | DRG 774 ==
LOC: YASAS 09:29 → Y6N 12:37
PROVIDERS: ADMIT Allergy & Immunology; ATTEND Surgery
PROC: HZ2ZZZZ Detoxification Services for Substance Abuse Treatment (ICD-10-PCS; principal; 2022-04-01)
DX: F10.230 Alcohol dependence with withdrawal, uncomplicated (principal); F14.20 Cocaine dependence, uncomplicated; F17.210 Nicotine dependence, cigarettes, uncomplicated; I10 Essential (primary) hypertension; I25.2 Old myocardial infarction; M17.11 Unilateral primary osteoarthritis, right knee; Z59.00 Homelessness unspecified
CPT/HCPCS: 36415; 80053; 85027; 86780; 87811; C9803-CS; U0003; U0005

== ENCOUNTER 2022-04-11 03:11 | Inpatient (IN) | payer OTHER ==
[2022-04-11 03:36] VITALS: BMI 25.0
[2022-04-11] MEDS ORDERED: hydrOXYzine PAMOATE 25 MG CAPSULE (FP) PO PRN (09:23)
[2022-04-11] MEDS ORDERED: MAG HYDROX/AL HYDROX/SIMETH 30 ML UNIT-DOSE CUP PO PRN (09:23)
[2022-04-11] MEDS ORDERED: NICOTINE POLACRILEX 4 MG GUM BUC PRN (09:23)
[2022-04-11] MEDS ORDERED: IBUPROFEN 400 MG TABLET (FP) PO PRN (09:23)
[2022-04-11] MEDS ORDERED: MAGNESIUM HYDROX 2400MG/30ML ORAL SUSPENSION 30 ML CUP PO PRN (09:23)
[2022-04-11] MEDS ORDERED: NICOTINE 10 MG CARTRIDGE (INHALER) IH PRN (09:23)
[2022-04-11] MEDS ORDERED: guaiFENesin 200 MG/10 ML 10 ML UNIT-DOSE CUPS PO PRN (09:23)
[2022-04-11] MEDS ORDERED: ACETAMINOPHEN 325 MG TABLET (FP) PO PRN (09:23)
[2022-04-11] MEDS ORDERED: NICOTINE 21 MG/24 HOURS TOPICAL PATCH TD PRN (09:23)
[2022-04-11] MEDS ORDERED: POLYETHYLENE GLYCOL (HEALTHYLAX) 3350 17 GM PACKET PO PRN (09:23)
[2022-04-11] MEDS ORDERED: LOPERAMIDE HCL 2 MG CAPSULE PO PRN (09:23)
[2022-04-11] MEDS ORDERED: BENZOCAINE/MENTHOL (CHLORASEPTIC ) LOZENGE MM PRN (09:23)
[2022-04-11] MEDS ORDERED: SIMETHICONE 80 MG TAB.CHEW (FP) PO PRN (09:27)
[2022-04-11] MEDS: PRENATAL VITAMINS W/ FOLIC ACID TABLET (FP) PO SCH (09:56)
[2022-04-11] MEDS ORDERED: MELATONIN 5 MG TABLETS PO SCH (22:00)
[2022-04-11] MEDS ORDERED: THIAMINE HCL 100 MG TABLET (FP) PO SCH (22:00)
[2022-04-12 06:35] VITALS: BP 124/80; PULSE 81; RESP 20; TEMP 97.5
[2022-04-12] MEDS: PRENATAL VITAMINS W/ FOLIC ACID TABLET (FP) PO SCH ×2 (09:57)
== END 2022-04-12 11:36 | disposition left against medical advice (07) | DRG 770 ==
LOC: YASAS 03:11 → Y3E 09:52
PROVIDERS: ADMIT Allergy & Immunology; ATTEND Psychiatry & Neurology Pain Medicine
PROC: HZ42ZZZ Group Counseling for Substance Abuse Treatment, Cognitive-Behavioral (ICD-10-PCS; principal; 2022-04-11)
DX: F10.20 Alcohol dependence, uncomplicated (principal); F14.20 Cocaine dependence, uncomplicated; F17.210 Nicotine dependence, cigarettes, uncomplicated; F32.A Depression, unspecified; I10 Essential (primary) hypertension; I25.2 Old myocardial infarction; M17.0 Bilateral primary osteoarthritis of knee
CPT/HCPCS: 82962; 87811; C9803-CS; U0003; U0005

== ENCOUNTER 2022-04-20 11:29 | Inpatient (IN) | payer OTHER ==
[2022-04-20 12:26] VITALS: BMI 23.9
[2022-04-20] MEDS ORDERED: ACETAMINOPHEN 325 MG TABLET (FP) PO PRN ×2 (12:50)
[2022-04-20] MEDS ORDERED: LOPERAMIDE HCL 2 MG CAPSULE PO PRN (12:50)
[2022-04-20] MEDS ORDERED: ONDANSETRON *ODT* 4 MG TABLET SL PRN (12:50)
[2022-04-20] MEDS ORDERED: BISMUTH SUBSALICYLATE 262 MG/15 ML BTL PO PRN (12:50)
[2022-04-20] MEDS ORDERED: NICOTINE 21 MG/24 HOURS TOPICAL PATCH TD PRN (12:50)
[2022-04-20] MEDS ORDERED: MAGNESIUM HYDROX 2400MG/30ML ORAL SUSPENSION 30 ML CUP PO PRN (12:50)
[2022-04-20] MEDS ORDERED: NICOTINE 10 MG CARTRIDGE (INHALER) IH PRN (12:50)
[2022-04-20] MEDS ORDERED: hydrOXYzine PAMOATE 25 MG CAPSULE (FP) PO PRN (12:50)
[2022-04-20] MEDS ORDERED: IBUPROFEN 600 MG TABLET (FP) PO PRN (12:50)
[2022-04-20] MEDS ORDERED: POLYETHYLENE GLYCOL (HEALTHYLAX) 3350 17 GM PACKET PO PRN (12:50)
[2022-04-20] MEDS ORDERED: MAG HYDROX/AL HYDROX/SIMETH 30 ML UNIT-DOSE CUP PO PRN (12:50)
[2022-04-20] MEDS ORDERED: NICOTINE POLACRILEX 4 MG GUM BUC PRN (12:50)
[2022-04-20] MEDS ORDERED: METHOCARBAMOL 500 MG TABLET PO PRN (12:50)
[2022-04-20] MEDS ORDERED: BENZOCAINE/MENTHOL (CHLORASEPTIC ) LOZENGE MM PRN (12:50)
[2022-04-20] MEDS ORDERED: DICYCLOMINE HCL 10 MG CAPSULE PO PRN (12:50)
[2022-04-20] MEDS ORDERED: IBUPROFEN 400 MG TABLET (FP) PO PRN (12:50)
[2022-04-20] MEDS: MELATONIN 5 MG TABLETS PO SCH (22:45)
[2022-04-20] MEDS: THIAMINE HCL 100 MG TABLET (FP) PO SCH (22:45)
[2022-04-21] MEDS: PRENATAL VITAMINS W/ FOLIC ACID TABLET (FP) PO SCH (10:19)
[2022-04-21] MEDS ORDERED: LORazepam 2 MG TABLET PO SCH (11:00)
[2022-04-21] MEDS ORDERED: LORazepam 1 MG TABLET PO PRN (11:25)
[2022-04-21] MEDS: LORazepam 1 MG TABLET PO SCH ×2 (17:32→22:20)
[2022-04-21] MEDS: MELATONIN 5 MG TABLETS PO SCH (22:20)
[2022-04-21] MEDS: THIAMINE HCL 100 MG TABLET (FP) PO SCH (22:21)
[2022-04-22] MEDS: LORazepam 1 MG TABLET PO SCH ×4 (05:59→22:14)
[2022-04-22] MEDS: PRENATAL VITAMINS W/ FOLIC ACID TABLET (FP) PO SCH (10:48)
[2022-04-22] MEDS: MELATONIN 5 MG TABLETS PO SCH (22:14)
[2022-04-22] MEDS: THIAMINE HCL 100 MG TABLET (FP) PO SCH (22:14)
[2022-04-23] MEDS: LORazepam 1 MG TABLET PO SCH ×4 (06:02→23:33)
[2022-04-23] MEDS: PRENATAL VITAMINS W/ FOLIC ACID TABLET (FP) PO SCH (10:16)
[2022-04-23] MEDS: THIAMINE HCL 100 MG TABLET (FP) PO SCH (23:33)
[2022-04-23] MEDS: MELATONIN 5 MG TABLETS PO SCH (23:33)
[2022-04-24] MEDS ORDERED: LORazepam 0.5 MG TABLET PO PRN
[2022-04-24] MEDS: LORazepam 0.5 MG TABLET PO SCH ×4 (06:34→23:37)
[2022-04-24] MEDS: PRENATAL VITAMINS W/ FOLIC ACID TABLET (FP) PO SCH (10:13)
[2022-04-24] MEDS: MELATONIN 5 MG TABLETS PO SCH (23:37)
[2022-04-24] MEDS: THIAMINE HCL 100 MG TABLET (FP) PO SCH (23:37)
[2022-04-25] MEDS ORDERED: LORazepam 0.5 MG TABLET PO ONE (05:00)
[2022-04-25 06:11] VITALS: PULSE 64; RESP 18
[2022-04-25 09:06] VITALS: BP 123/71; TEMP 98.3
== END 2022-04-25 09:59 | disposition home or self-care (01) | DRG 774 ==
LOC: YASAS 11:29 → Y3N 13:23
PROVIDERS: ADMIT Allergy & Immunology; ATTEND Surgery
PROC: HZ2ZZZZ Detoxification Services for Substance Abuse Treatment (ICD-10-PCS; principal; 2022-04-20)
DX: F10.230 Alcohol dependence with withdrawal, uncomplicated (principal); F14.20 Cocaine dependence, uncomplicated; F17.210 Nicotine dependence, cigarettes, uncomplicated; I10 Essential (primary) hypertension; I25.2 Old myocardial infarction; M17.0 Bilateral primary osteoarthritis of knee; Z86.69 Personal history of other diseases of the nervous system and sense organs; Z56.0 Unemployment, unspecified
CPT/HCPCS: C9803-CS; U0003; U0005

== ENCOUNTER 2022-05-01 23:42 | Inpatient (IN) | payer OTHER ==
[2022-05-02 00:35] VITALS: BMI 23.9
[2022-05-02] MEDS ORDERED: BENZOCAINE/MENTHOL (CHLORASEPTIC ) LOZENGE MM PRN (01:12)
[2022-05-02] MEDS ORDERED: MAGNESIUM HYDROX 2400MG/30ML ORAL SUSPENSION 30 ML CUP PO PRN (01:12)
[2022-05-02] MEDS ORDERED: IBUPROFEN 600 MG TABLET (FP) PO PRN (01:12)
[2022-05-02] MEDS ORDERED: ONDANSETRON *ODT* 4 MG TABLET SL PRN (01:12)
[2022-05-02] MEDS ORDERED: ACETAMINOPHEN 325 MG TABLET (FP) PO PRN ×2 (01:12)
[2022-05-02] MEDS ORDERED: BISMUTH SUBSALICYLATE 524 MG/30 ML PO PRN (01:12)
[2022-05-02] MEDS ORDERED: METHOCARBAMOL 500 MG TABLET PO PRN (01:12)
[2022-05-02] MEDS ORDERED: NICOTINE 10 MG CARTRIDGE (INHALER) IH PRN (01:12)
[2022-05-02] MEDS ORDERED: NALOXONE HCL (KLOXXADO) 8 MG SPRAY NS PRN (01:12)
[2022-05-02] MEDS ORDERED: MAG HYDROX/AL HYDROX/SIMETH 30 ML UNIT-DOSE CUP PO PRN (01:12)
[2022-05-02] MEDS ORDERED: POLYETHYLENE GLYCOL (HEALTHYLAX) 3350 17 GM PACKET PO PRN (01:12)
[2022-05-02] MEDS ORDERED: LOPERAMIDE HCL 2 MG CAPSULE PO PRN (01:12)
[2022-05-02] MEDS ORDERED: IBUPROFEN 400 MG TABLET (FP) PO PRN (01:12)
[2022-05-02] MEDS ORDERED: DICYCLOMINE HCL 10 MG CAPSULE PO PRN (01:12)
[2022-05-02] MEDS: PRENATAL VITAMINS W/ FOLIC ACID TABLET (FP) PO SCH (09:50)
[2022-05-02] MEDS: NICOTINE 21 MG/24 HOURS TOPICAL PATCH TD SCH (09:51)
[2022-05-02] MEDS ORDERED: MELATONIN 5 MG TABLETS PO SCH (22:00)
[2022-05-02] MEDS ORDERED: THIAMINE HCL 100 MG TABLET (FP) PO SCH (22:00)
[2022-05-03 09:53] VITALS: BP 121/73; PULSE 83; RESP 17; TEMP 97.7
[2022-05-03] MEDS: PRENATAL VITAMINS W/ FOLIC ACID TABLET (FP) PO SCH (10:23)
[2022-05-03] MEDS: NICOTINE 21 MG/24 HOURS TOPICAL PATCH TD SCH (10:23)
[2022-05-03 11:34] LABS: HEMATOCRIT 37.6 % (35.4-49); HEMOGLOBIN 12.1 GM/dL (11.7-16.9); MCH 27.4 pg (25.7-33.7); MCHC 32.3 g/dl (32.0-35.9); MEAN CELL VOLUME 84.9 fl (80-96); MEAN PLT VOLUME 8.5 fl (7.5-11.1); PLATELET COUNT 272 10^3/uL (134-434); RBC 4.43 M/mm3 (4.00-5.60); RDW 15.1 % (11.9-15.9); WHITE BLOOD COUNT 4.9 K/mm3 (4.0-10.0)
[2022-05-03 11:37] LABS: ALBUMIN 3.3 g/dl (3.4-5.0); BLOOD UREA NITROGEN 25.2 mg/dL (7-18); CALCIUM 9.3 mg/dL (8.5-10.1)
[2022-05-03 11:41] LABS: CREATININE 1.6 mg/dL (0.55-1.3)
[2022-05-03 11:42] LABS: BILIRUBIN,TOTAL 1.1 mg/dL (0.2-1); TOT PROT 6.8 g/dl (6.4-8.2)
== END 2022-05-03 12:00 | disposition home or self-care (01) | DRG 774 ==
LOC: YASAS 23:42 → Y6N 05-02 01:03
PROVIDERS: ADMIT Allergy & Immunology; ATTEND Surgery
PROC: HZ2ZZZZ Detoxification Services for Substance Abuse Treatment (ICD-10-PCS; principal; 2022-05-02)
DX: F10.20 Alcohol dependence, uncomplicated (principal); F14.20 Cocaine dependence, uncomplicated; F17.210 Nicotine dependence, cigarettes, uncomplicated; F32.A Depression, unspecified; I10 Essential (primary) hypertension; M17.11 Unilateral primary osteoarthritis, right knee; I25.2 Old myocardial infarction
CPT/HCPCS: 36415; 80053; 85027; 86780; C9803-CS; U0003; U0005

== ENCOUNTER 2022-05-23 03:38 | Inpatient (IN) | payer OTHER ==
[2022-05-23 04:07] VITALS: BMI 23.2
[2022-05-23] MEDS ORDERED: DICYCLOMINE HCL 10 MG CAPSULE PO PRN (04:38)
[2022-05-23] MEDS ORDERED: POLYETHYLENE GLYCOL (HEALTHYLAX) 3350 17 GM PACKET PO PRN (04:38)
[2022-05-23] MEDS ORDERED: IBUPROFEN 400 MG TABLET (FP) PO PRN (04:38)
[2022-05-23] MEDS ORDERED: ACETAMINOPHEN 325 MG TABLET (FP) PO PRN ×2 (04:38)
[2022-05-23] MEDS ORDERED: MAGNESIUM HYDROX 2400MG/30ML ORAL SUSPENSION 30 ML CUP PO PRN (04:38)
[2022-05-23] MEDS ORDERED: hydrOXYzine PAMOATE 25 MG CAPSULE (FP) PO PRN (04:38)
[2022-05-23] MEDS ORDERED: LOPERAMIDE HCL 2 MG CAPSULE PO PRN (04:38)
[2022-05-23] MEDS ORDERED: NICOTINE POLACRILEX 4 MG GUM BUC PRN (04:38)
[2022-05-23] MEDS ORDERED: NALOXONE HCL (KLOXXADO) 8 MG SPRAY NS PRN (04:38)
[2022-05-23] MEDS ORDERED: IBUPROFEN 600 MG TABLET (FP) PO PRN (04:38)
[2022-05-23] MEDS ORDERED: BISMUTH SUBSALICYLATE 524 MG/30 ML PO PRN (04:38)
[2022-05-23] MEDS ORDERED: BENZOCAINE/MENTHOL (CHLORASEPTIC ) LOZENGE MM PRN (04:38)
[2022-05-23] MEDS ORDERED: ONDANSETRON *ODT* 4 MG TABLET SL PRN (04:38)
[2022-05-23] MEDS ORDERED: METHOCARBAMOL 500 MG TABLET PO PRN (04:38)
[2022-05-23] MEDS ORDERED: guaiFENesin 200 MG/10 ML 10 ML UNIT-DOSE CUPS PO PRN (04:38)
[2022-05-23] MEDS ORDERED: MAG HYDROX/AL HYDROX/SIMETH 30 ML UNIT-DOSE CUP PO PRN (04:38)
[2022-05-23] MEDS ORDERED: P-EPHED 60MG/TRIPROLIDI 2.5MG TABLET PO PRN (04:38)
[2022-05-23] MEDS ORDERED: LORazepam 1 MG TABLET PO PRN (10:26)
[2022-05-23] MEDS: PRENATAL VITAMINS W/ FOLIC ACID TABLET (FP) PO SCH (10:28)
[2022-05-23] MEDS: NICOTINE 21 MG/24 HOURS TOPICAL PATCH TD SCH (10:28)
[2022-05-23] MEDS: LORazepam 2 MG TABLET PO SCH ×2 (11:54→17:41)
[2022-05-23 12:12] LABS: HEMOGLOBIN 13.1 GM/dL (11.7-16.9); MCH 28.1 pg (25.7-33.7); MCHC 33.7 g/dl (32.0-35.9); MEAN CELL VOLUME 83.4 fl (80-96); MEAN PLT VOLUME 7.5 fl (7.5-11.1); PLATELET COUNT 269 10^3/uL (134-434); RBC 4.68 M/mm3 (4.00-5.60); RDW 15.4 % (11.9-15.9); WHITE BLOOD COUNT 4.5 K/mm3 (4.0-10.0)
[2022-05-23 12:15] LABS: ALBUMIN 3.5 g/dl (3.4-5.0); CALCIUM 9.3 mg/dL (8.5-10.1)
[2022-05-23 12:16] LABS: BLOOD UREA NITROGEN 18.3 mg/dL (7-18)
[2022-05-23 12:20] LABS: CREATININE 1.3 mg/dL (0.55-1.3)
[2022-05-23 12:21] LABS: BILIRUBIN,TOTAL 0.5 mg/dL (0.2-1); TOT PROT 6.8 g/dl (6.4-8.2)
[2022-05-23] MEDS: THIAMINE HCL 100 MG TABLET (FP) PO SCH (22:48)
[2022-05-23] MEDS: MELATONIN 5 MG TABLETS PO SCH (22:48)
[2022-05-23] MEDS: LORazepam 1 MG TABLET PO SCH (22:49)
[2022-05-24] MEDS: LORazepam 1 MG TABLET PO SCH ×4 (06:02→22:29)
[2022-05-24] MEDS: PRENATAL VITAMINS W/ FOLIC ACID TABLET (FP) PO SCH (10:55)
[2022-05-24] MEDS: NICOTINE 21 MG/24 HOURS TOPICAL PATCH TD SCH (10:56)
[2022-05-24] MEDS: THIAMINE HCL 100 MG TABLET (FP) PO SCH (22:28)
[2022-05-24] MEDS: MELATONIN 5 MG TABLETS PO SCH (22:28)
[2022-05-25] MEDS: LORazepam 1 MG TABLET PO SCH ×4 (06:20→22:42)
[2022-05-25] MEDS: PRENATAL VITAMINS W/ FOLIC ACID TABLET (FP) PO SCH (10:13)
[2022-05-25] MEDS: NICOTINE 21 MG/24 HOURS TOPICAL PATCH TD SCH (10:14)
[2022-05-25] MEDS: THIAMINE HCL 100 MG TABLET (FP) PO SCH (22:41)
[2022-05-25] MEDS: MELATONIN 5 MG TABLETS PO SCH (22:41)
[2022-05-26] MEDS ORDERED: LORazepam 0.5 MG TABLET PO PRN
[2022-05-26] MEDS: LORazepam 0.5 MG TABLET PO SCH ×4 (05:55→22:12)
[2022-05-26] MEDS: PRENATAL VITAMINS W/ FOLIC ACID TABLET (FP) PO SCH (10:16)
[2022-05-26] MEDS: NICOTINE 21 MG/24 HOURS TOPICAL PATCH TD SCH (10:17)
[2022-05-26] MEDS: MELATONIN 5 MG TABLETS PO SCH (22:12)
[2022-05-26] MEDS: THIAMINE HCL 100 MG TABLET (FP) PO SCH (22:12)
[2022-05-27] MEDS ORDERED: LORazepam 0.5 MG TABLET PO ONE (05:00)
[2022-05-27 09:44] VITALS: BP 128/80; PULSE 91; RESP 17; TEMP 97
[2022-05-27] MEDS: PRENATAL VITAMINS W/ FOLIC ACID TABLET (FP) PO SCH (10:10)
[2022-05-27] MEDS: NICOTINE 21 MG/24 HOURS TOPICAL PATCH TD SCH (10:10)
== END 2022-05-27 10:35 | disposition home or self-care (01) | DRG 774 ==
LOC: YASAS 03:38 → Y3N 04:36
PROVIDERS: ADMIT Allergy & Immunology; ATTEND Surgery
PROC: HZ2ZZZZ Detoxification Services for Substance Abuse Treatment (ICD-10-PCS; principal; 2022-05-23)
DX: F10.230 Alcohol dependence with withdrawal, uncomplicated (principal); F14.20 Cocaine dependence, uncomplicated; F17.210 Nicotine dependence, cigarettes, uncomplicated; I10 Essential (primary) hypertension; I25.2 Old myocardial infarction; M17.0 Bilateral primary osteoarthritis of knee; Z86.69 Personal history of other diseases of the nervous system and sense organs; Z59.01 Sheltered homelessness
CPT/HCPCS: 36415; 80053; 85027; 86780; 87811; C9803-CS; U0003; U0005

== ENCOUNTER 2022-06-15 01:03 | Inpatient (IN) | payer OTHER ==
[2022-06-15 01:28] VITALS: BMI 22.9
[2022-06-15] MEDS ORDERED: ONDANSETRON *ODT* 4 MG TABLET SL PRN (01:39)
[2022-06-15] MEDS ORDERED: hydrOXYzine PAMOATE 25 MG CAPSULE (FP) PO PRN (01:39)
[2022-06-15] MEDS ORDERED: MAG HYDROX/AL HYDROX/SIMETH 30 ML UNIT-DOSE CUP PO PRN (01:39)
[2022-06-15] MEDS ORDERED: NALOXONE HCL (KLOXXADO) 8 MG SPRAY NS PRN (01:39)
[2022-06-15] MEDS ORDERED: NICOTINE 10 MG CARTRIDGE (INHALER) IH PRN (01:39)
[2022-06-15] MEDS ORDERED: DICYCLOMINE HCL 10 MG CAPSULE PO PRN (01:39)
[2022-06-15] MEDS ORDERED: POLYETHYLENE GLYCOL (HEALTHYLAX) 3350 17 GM PACKET PO PRN (01:39)
[2022-06-15] MEDS ORDERED: METHOCARBAMOL 500 MG TABLET PO PRN (01:39)
[2022-06-15] MEDS ORDERED: MAGNESIUM HYDROX 2400MG/30ML ORAL SUSPENSION 30 ML CUP PO PRN (01:39)
[2022-06-15] MEDS ORDERED: IBUPROFEN 600 MG TABLET (FP) PO PRN (01:39)
[2022-06-15] MEDS ORDERED: BENZOCAINE/MENTHOL (CHLORASEPTIC ) LOZENGE MM PRN (01:39)
[2022-06-15] MEDS ORDERED: BISMUTH SUBSALICYLATE 524 MG/30 ML PO PRN (01:39)
[2022-06-15] MEDS ORDERED: IBUPROFEN 400 MG TABLET (FP) PO PRN (01:39)
[2022-06-15] MEDS ORDERED: LOPERAMIDE HCL 2 MG CAPSULE PO PRN (01:39)
[2022-06-15] MEDS ORDERED: ACETAMINOPHEN 325 MG TABLET (FP) PO PRN ×2 (01:39)
[2022-06-15] MEDS ORDERED: NICOTINE POLACRILEX 4 MG GUM BUC PRN (06:24)
[2022-06-15] MEDS: NICOTINE 21 MG/24 HOURS TOPICAL PATCH TD SCH (10:10)
[2022-06-15] MEDS: PRENATAL VITAMINS W/ FOLIC ACID TABLET (FP) PO SCH (10:11)
[2022-06-15] MEDS: diazePAM 5 MG TABLET PO SCH ×3 (10:11→23:43)
[2022-06-15 13:47] LABS: HEMATOCRIT 35.8 % (35.4-49); HEMOGLOBIN 12.5 GM/dL (11.7-16.9); MCH 29.2 pg (25.7-33.7); MCHC 34.8 g/dl (32.0-35.9); MEAN CELL VOLUME 83.8 fl (80-96); MEAN PLT VOLUME 7.5 fl (7.5-11.1); PLATELET COUNT 281 10^3/uL (134-434); RBC 4.27 M/mm3 (4.00-5.60); RDW 14.9 % (11.9-15.9); WHITE BLOOD COUNT 3.8 K/mm3 (4.0-10.0)
[2022-06-15 14:41] LABS: ALBUMIN 3.2 g/dl (3.4-5.0); BLOOD UREA NITROGEN 18.7 mg/dL (7-18); CALCIUM 9.1 mg/dL (8.5-10.1)
[2022-06-15 14:44] LABS: CREATININE 1.3 mg/dL (0.55-1.3)
[2022-06-15 14:46] LABS: BILIRUBIN,TOTAL 0.5 mg/dL (0.2-1); TOT PROT 6.4 g/dl (6.4-8.2)
[2022-06-15] MEDS: THIAMINE HCL 100 MG TABLET (FP) PO SCH (23:43)
[2022-06-15] MEDS: MELATONIN 5 MG TABLETS PO SCH (23:43)
[2022-06-16] MEDS: diazePAM 5 MG TABLET PO SCH ×4 (05:55→22:56)
[2022-06-16] MEDS: PRENATAL VITAMINS W/ FOLIC ACID TABLET (FP) PO SCH (10:29)
[2022-06-16] MEDS: NICOTINE 21 MG/24 HOURS TOPICAL PATCH TD SCH (10:30)
[2022-06-16] MEDS: THIAMINE HCL 100 MG TABLET (FP) PO SCH (22:56)
[2022-06-16] MEDS: MELATONIN 5 MG TABLETS PO SCH (22:56)
[2022-06-17] MEDS: diazePAM 5 MG TABLET PO SCH ×3 (05:30→22:51)
[2022-06-17] MEDS: NICOTINE 21 MG/24 HOURS TOPICAL PATCH TD SCH (10:27)
[2022-06-17] MEDS: PRENATAL VITAMINS W/ FOLIC ACID TABLET (FP) PO SCH (10:27)
[2022-06-17] MEDS: THIAMINE HCL 100 MG TABLET (FP) PO SCH (22:50)
[2022-06-17] MEDS: MELATONIN 5 MG TABLETS PO SCH (22:50)
[2022-06-18] MEDS: diazePAM 5 MG TABLET PO SCH ×2 (05:55→17:09)
[2022-06-18] MEDS: NICOTINE 21 MG/24 HOURS TOPICAL PATCH TD SCH (10:26)
[2022-06-18] MEDS: PRENATAL VITAMINS W/ FOLIC ACID TABLET (FP) PO SCH (10:26)
[2022-06-18] MEDS: MELATONIN 5 MG TABLETS PO SCH (22:48)
[2022-06-18] MEDS: THIAMINE HCL 100 MG TABLET (FP) PO SCH (22:48)
[2022-06-19] MEDS ORDERED: diazePAM 5 MG TABLET PO ONE (06:00)
[2022-06-19 06:49] VITALS: BP 103/63; PULSE 72; RESP 18; TEMP 97.5
== END 2022-06-19 10:00 | disposition home or self-care (01) | DRG 774 ==
LOC: YASAS 01:03 → Y6N 02:42
PROVIDERS: ADMIT Allergy & Immunology; ATTEND Surgery
PROC: HZ2ZZZZ Detoxification Services for Substance Abuse Treatment (ICD-10-PCS; principal; 2022-06-15)
DX: F10.230 Alcohol dependence with withdrawal, uncomplicated (principal); F14.20 Cocaine dependence, uncomplicated; F17.210 Nicotine dependence, cigarettes, uncomplicated; F19.24 Other psychoactive substance dependence with psychoactive substance-induced mood disorder; I10 Essential (primary) hypertension; I25.2 Old myocardial infarction; M17.0 Bilateral primary osteoarthritis of knee; Z59.01 Sheltered homelessness
CPT/HCPCS: 36415; 80053; 85027; 86780; C9803-CS; U0003; U0005

== ENCOUNTER 2022-06-27 01:24 | Inpatient (IN) | payer OTHER ==
[2022-06-27 01:40] VITALS: BMI 22.9
[2022-06-27] MEDS ORDERED: NALOXONE HCL (KLOXXADO) 8 MG SPRAY NS PRN (02:30)
[2022-06-27] MEDS ORDERED: MAG HYDROX/AL HYDROX/SIMETH 30 ML UNIT-DOSE CUP PO PRN (02:30)
[2022-06-27] MEDS ORDERED: BISMUTH SUBSALICYLATE 524 MG/30 ML PO PRN (02:30)
[2022-06-27] MEDS ORDERED: POLYETHYLENE GLYCOL (HEALTHYLAX) 3350 17 GM PACKET PO PRN (02:30)
[2022-06-27] MEDS ORDERED: LOPERAMIDE HCL 2 MG CAPSULE PO PRN (02:30)
[2022-06-27] MEDS ORDERED: METHOCARBAMOL 500 MG TABLET PO PRN (02:30)
[2022-06-27] MEDS ORDERED: NICOTINE POLACRILEX 2 MG GUM BUC PRN (02:30)
[2022-06-27] MEDS ORDERED: IBUPROFEN 600 MG TABLET (FP) PO PRN (02:30)
[2022-06-27] MEDS ORDERED: MAGNESIUM HYDROX 2400MG/30ML ORAL SUSPENSION 30 ML CUP PO PRN (02:30)
[2022-06-27] MEDS ORDERED: DICYCLOMINE HCL 10 MG CAPSULE PO PRN (02:30)
[2022-06-27] MEDS ORDERED: BENZOCAINE/MENTHOL (CHLORASEPTIC ) LOZENGE MM PRN (02:30)
[2022-06-27] MEDS ORDERED: ONDANSETRON *ODT* 4 MG TABLET SL PRN (02:30)
[2022-06-27] MEDS ORDERED: IBUPROFEN 400 MG TABLET (FP) PO PRN (02:30)
[2022-06-27] MEDS ORDERED: ACETAMINOPHEN 325 MG TABLET (FP) PO PRN ×2 (02:30)
[2022-06-27] MEDS ORDERED: LORazepam 1 MG TABLET PO PRN (09:51)
[2022-06-27] MEDS: NICOTINE 21 MG/24 HOURS TOPICAL PATCH TD SCH (10:26)
[2022-06-27] MEDS: PRENATAL VITAMINS W/ FOLIC ACID TABLET (FP) PO SCH (10:26)
[2022-06-27] MEDS: LORazepam 2 MG TABLET PO SCH ×2 (10:27→19:04)
[2022-06-27] MEDS: LORazepam 1 MG TABLET PO SCH ×2 (18:09→22:51)
[2022-06-27] MEDS: MELATONIN 5 MG TABLETS PO SCH (22:50)
[2022-06-27] MEDS: THIAMINE HCL 100 MG TABLET (FP) PO SCH (22:50)
[2022-06-28] MEDS: LORazepam 1 MG TABLET PO SCH ×4 (05:43→23:30)
[2022-06-28] MEDS: NICOTINE 21 MG/24 HOURS TOPICAL PATCH TD SCH (10:23)
[2022-06-28] MEDS: PRENATAL VITAMINS W/ FOLIC ACID TABLET (FP) PO SCH (10:23)
[2022-06-28 11:07] LABS: HEMATOCRIT 32.7 % (35.4-49); HEMOGLOBIN 11.6 GM/dL (11.7-16.9); MCH 29.3 pg (25.7-33.7); MCHC 35.6 g/dl (32.0-35.9); MEAN CELL VOLUME 82.5 fl (80-96); MEAN PLT VOLUME 7.8 fl (7.5-11.1); PLATELET COUNT 275 10^3/uL (134-434); RBC 3.96 M/mm3 (4.00-5.60); WHITE BLOOD COUNT 3.5 K/mm3 (4.0-10.0)
[2022-06-28 11:29] LABS: CALCIUM 8.8 mg/dL (8.5-10.1)
[2022-06-28 11:30] LABS: BLOOD UREA NITROGEN 17.5 mg/dL (7-18)
[2022-06-28 11:33] LABS: CREATININE 1.2 mg/dL (0.55-1.3)
[2022-06-28 11:34] LABS: BILIRUBIN,TOTAL 0.2 mg/dL (0.2-1); TOT PROT 6.2 g/dl (6.4-8.2)
[2022-06-28] MEDS: MELATONIN 5 MG TABLETS PO SCH (23:30)
[2022-06-28] MEDS: THIAMINE HCL 100 MG TABLET (FP) PO SCH (23:30)
[2022-06-29] MEDS: LORazepam 1 MG TABLET PO SCH ×4 (05:26→22:48)
[2022-06-29] MEDS: PRENATAL VITAMINS W/ FOLIC ACID TABLET (FP) PO SCH (10:17)
[2022-06-29] MEDS: NICOTINE 21 MG/24 HOURS TOPICAL PATCH TD SCH (10:44)
[2022-06-29] MEDS: THIAMINE HCL 100 MG TABLET (FP) PO SCH (22:51)
[2022-06-29] MEDS: MELATONIN 5 MG TABLETS PO SCH (22:51)
[2022-06-30] MEDS ORDERED: LORazepam 0.5 MG TABLET PO PRN
[2022-06-30] MEDS: LORazepam 0.5 MG TABLET PO SCH ×2 (05:56→10:05)
[2022-06-30 06:43] VITALS: RESP 16
[2022-06-30] MEDS: PRENATAL VITAMINS W/ FOLIC ACID TABLET (FP) PO SCH (10:05)
[2022-06-30] MEDS: NICOTINE 21 MG/24 HOURS TOPICAL PATCH TD SCH (10:06)
[2022-06-30 13:58] VITALS: BP 127/69; PULSE 89; TEMP 98
[2022-07-01] MEDS ORDERED: LORazepam 0.5 MG TABLET PO ONE (05:00)
== END 2022-06-30 13:15 | disposition home or self-care (01) | DRG 774 ==
LOC: YASAS 01:24 → Y3N 03:05
PROVIDERS: ADMIT Allergy & Immunology; ATTEND Allergy & Immunology
PROC: HZ2ZZZZ Detoxification Services for Substance Abuse Treatment (ICD-10-PCS; principal; 2022-06-27)
DX: F10.230 Alcohol dependence with withdrawal, uncomplicated (principal); F14.20 Cocaine dependence, uncomplicated; F17.210 Nicotine dependence, cigarettes, uncomplicated; F32.A Depression, unspecified; I10 Essential (primary) hypertension; M17.11 Unilateral primary osteoarthritis, right knee; I25.2 Old myocardial infarction
CPT/HCPCS: 36415; 80053; 85027; 86780; 93005; 93010; C9803-CS; U0003; U0005

== ENCOUNTER 2022-07-11 20:03 | Inpatient (IN) | payer OTHER ==
[2022-07-11] MEDS ORDERED: DICYCLOMINE HCL 10 MG CAPSULE PO PRN (21:22)
[2022-07-11] MEDS ORDERED: POLYETHYLENE GLYCOL (HEALTHYLAX) 3350 17 GM PACKET PO PRN (21:22)
[2022-07-11] MEDS ORDERED: BISMUTH SUBSALICYLATE 524 MG/30 ML PO PRN (21:22)
[2022-07-11] MEDS ORDERED: P-EPHED 60MG/TRIPROLIDI 2.5MG TABLET PO PRN (21:22)
[2022-07-11] MEDS ORDERED: NICOTINE POLACRILEX 2 MG GUM BUC PRN (21:22)
[2022-07-11] MEDS ORDERED: MAG HYDROX/AL HYDROX/SIMETH 30 ML UNIT-DOSE CUP PO PRN (21:22)
[2022-07-11] MEDS ORDERED: BENZOCAINE/MENTHOL (CHLORASEPTIC ) LOZENGE MM PRN (21:22)
[2022-07-11] MEDS ORDERED: MAGNESIUM HYDROX 2400MG/30ML ORAL SUSPENSION 30 ML CUP PO PRN (21:22)
[2022-07-11] MEDS ORDERED: hydrOXYzine PAMOATE 25 MG CAPSULE (FP) PO PRN (21:22)
[2022-07-11] MEDS ORDERED: ACETAMINOPHEN 325 MG TABLET (FP) PO PRN ×2 (21:22)
[2022-07-11] MEDS ORDERED: ONDANSETRON *ODT* 4 MG TABLET SL PRN (21:22)
[2022-07-11] MEDS ORDERED: IBUPROFEN 400 MG TABLET (FP) PO PRN (21:22)
[2022-07-11] MEDS ORDERED: LOPERAMIDE HCL 2 MG CAPSULE PO PRN (21:22)
[2022-07-11] MEDS ORDERED: guaiFENesin 200 MG/10 ML 10 ML UNIT-DOSE CUPS PO PRN (21:22)
[2022-07-11] MEDS: THIAMINE HCL 100 MG TABLET (FP) PO SCH (21:56)
[2022-07-11] MEDS: ASPIRIN COATED 81 MG TABLET.EC PO SCH (21:56)
[2022-07-11] MEDS: MELATONIN 5 MG TABLETS PO PRN (21:56)
[2022-07-11] MEDS: IBUPROFEN 600 MG TABLET (FP) PO PRN (21:57)
[2022-07-12] MEDS: ASPIRIN COATED 81 MG TABLET.EC PO SCH (10:31)
[2022-07-12] MEDS: diazePAM 5 MG TABLET PO SCH ×3 (10:31→22:23)
[2022-07-12] MEDS: PRENATAL VITAMINS W/ FOLIC ACID TABLET (FP) PO SCH (10:31)
[2022-07-12] MEDS: THIAMINE HCL 100 MG TABLET (FP) PO SCH (22:22)
[2022-07-12] MEDS: MELATONIN 5 MG TABLETS PO PRN (22:22)
[2022-07-13] MEDS: diazePAM 5 MG TABLET PO SCH ×4 (05:20→23:05)
[2022-07-13] MEDS: PRENATAL VITAMINS W/ FOLIC ACID TABLET (FP) PO SCH (10:09)
[2022-07-13] MEDS: ASPIRIN COATED 81 MG TABLET.EC PO SCH (10:10)
[2022-07-13] MEDS: IBUPROFEN 600 MG TABLET (FP) PO PRN (10:11)
[2022-07-13 21:13] VITALS: PULSE 84
[2022-07-13] MEDS: THIAMINE HCL 100 MG TABLET (FP) PO SCH (23:05)
[2022-07-14] MEDS ORDERED: diazePAM 5 MG TABLET PO SCH (06:00)
[2022-07-14 09:13] VITALS: BP 145/74; RESP 18; TEMP 97.8
[2022-07-14] MEDS: IBUPROFEN 600 MG TABLET (FP) PO PRN (09:41)
[2022-07-14] MEDS: ASPIRIN COATED 81 MG TABLET.EC PO SCH (09:41)
[2022-07-14] MEDS: PRENATAL VITAMINS W/ FOLIC ACID TABLET (FP) PO SCH (09:41)
[2022-07-15] MEDS ORDERED: diazePAM 5 MG TABLET PO SCH (06:00)
[2022-07-16] MEDS ORDERED: diazePAM 5 MG TABLET PO ONE (06:00)
== END 2022-07-14 12:18 | disposition left against medical advice (07) | DRG 770 ==
LOC: YASAS 20:03 → Y6N 21:14 → UNDOADMIN 21:14
PROVIDERS: ADMIT Allergy & Immunology; ATTEND Surgery
PROC: HZ2ZZZZ Detoxification Services for Substance Abuse Treatment (ICD-10-PCS; principal; 2022-07-11)
DX: F10.230 Alcohol dependence with withdrawal, uncomplicated (principal); F14.20 Cocaine dependence, uncomplicated; F17.210 Nicotine dependence, cigarettes, uncomplicated; I10 Essential (primary) hypertension; I25.2 Old myocardial infarction; M17.0 Bilateral primary osteoarthritis of knee; Z59.01 Sheltered homelessness; Z56.0 Unemployment, unspecified
CPT/HCPCS: 87811; C9803-CS; U0003; U0005

== ENCOUNTER 2022-07-22 19:57 | Inpatient (IN) | payer OTHER ==
[2022-07-22 21:20] VITALS: BMI 22.9
[2022-07-22] MEDS ORDERED: NALOXONE HCL (KLOXXADO) 8 MG SPRAY NS PRN (22:50)
[2022-07-22] MEDS ORDERED: BENZONATATE 200 MG CAPSULE PO PRN (22:50)
[2022-07-22] MEDS ORDERED: hydrOXYzine PAMOATE 25 MG CAPSULE (FP) PO PRN (22:50)
[2022-07-22] MEDS ORDERED: NALOXONE HCL 0.4 MG/ML VIAL IM PRN (22:50)
[2022-07-22] MEDS ORDERED: MAGNESIUM HYDROX 2400MG/30ML ORAL SUSPENSION 30 ML CUP PO PRN (22:50)
[2022-07-22] MEDS ORDERED: MAG HYDROX/AL HYDROX/SIMETH 30 ML UNIT-DOSE CUP PO PRN (22:50)
[2022-07-22] MEDS ORDERED: ONDANSETRON *ODT* 4 MG TABLET SL PRN (22:50)
[2022-07-22] MEDS ORDERED: DICYCLOMINE HCL 10 MG CAPSULE PO PRN (22:50)
[2022-07-22] MEDS ORDERED: IBUPROFEN 600 MG TABLET (FP) PO PRN (22:50)
[2022-07-22] MEDS ORDERED: IBUPROFEN 400 MG TABLET (FP) PO PRN (22:50)
[2022-07-22] MEDS ORDERED: ACETAMINOPHEN 325 MG TABLET (FP) PO PRN (22:50)
[2022-07-22] MEDS ORDERED: BISMUTH SUBSALICYLATE 524 MG/30 ML PO PRN (22:50)
[2022-07-22] MEDS ORDERED: NICOTINE POLACRILEX 2 MG GUM BUC PRN (22:50)
[2022-07-22] MEDS ORDERED: BENZOCAINE/MENTHOL (CHLORASEPTIC ) LOZENGE MM PRN (22:50)
[2022-07-22] MEDS ORDERED: POLYETHYLENE GLYCOL (HEALTHYLAX) 3350 17 GM PACKET PO PRN (22:50)
[2022-07-22] MEDS ORDERED: guaiFENesin 600 MG TABLET.ER (FP) PO PRN (22:50)
[2022-07-22] MEDS ORDERED: LOPERAMIDE HCL 2 MG CAPSULE PO PRN (22:50)
[2022-07-23 10:56] LABS: HEMATOCRIT 35.3 % (35.4-49); HEMOGLOBIN 12.2 GM/dL (11.7-16.9); MCH 27.9 pg (25.7-33.7); MCHC 34.7 g/dl (32.0-35.9); MEAN CELL VOLUME 80.5 fl (80-96); MEAN PLT VOLUME 7.5 fl (7.5-11.1); PLATELET COUNT 287 10^3/uL (134-434); RBC 4.38 M/mm3 (4.00-5.60); RDW 14.4 % (11.9-15.9); WHITE BLOOD COUNT 4.2 K/mm3 (4.0-10.0)
[2022-07-23] MEDS: NICOTINE 21 MG/24 HOURS TOPICAL PATCH TD SCH (10:58)
[2022-07-23] MEDS: PRENATAL VITAMINS W/ FOLIC ACID TABLET (FP) PO SCH (10:58)
[2022-07-23 11:15] LABS: ALBUMIN 3.2 g/dl (3.4-5.0); CALCIUM 9.3 mg/dL (8.5-10.1)
[2022-07-23 11:19] LABS: BILIRUBIN,TOTAL 0.4 mg/dL (0.2-1); TOT PROT 6.5 g/dl (6.4-8.2)
[2022-07-23] MEDS: MELATONIN 5 MG TABLETS PO SCH (22:41)
[2022-07-23] MEDS: THIAMINE HCL 100 MG TABLET (FP) PO SCH (22:41)
[2022-07-24] MEDS: NICOTINE 21 MG/24 HOURS TOPICAL PATCH TD SCH (11:00)
[2022-07-24] MEDS: PRENATAL VITAMINS W/ FOLIC ACID TABLET (FP) PO SCH (11:00)
[2022-07-24 17:29] VITALS: RESP 18
[2022-07-24] MEDS: MELATONIN 5 MG TABLETS PO SCH (21:59)
[2022-07-24] MEDS: THIAMINE HCL 100 MG TABLET (FP) PO SCH (21:59)
[2022-07-25 09:07] VITALS: BP 122/71; PULSE 73; TEMP 97.4
== END 2022-07-25 10:19 | disposition home or self-care (01) | DRG 774 ==
LOC: YASAS 19:57 → Y3N 23:01
PROVIDERS: ADMIT Allergy & Immunology; ATTEND Surgery
PROC: HZ2ZZZZ Detoxification Services for Substance Abuse Treatment (ICD-10-PCS; principal; 2022-07-22)
DX: F10.20 Alcohol dependence, uncomplicated (principal); F14.20 Cocaine dependence, uncomplicated; F17.210 Nicotine dependence, cigarettes, uncomplicated; I10 Essential (primary) hypertension; I25.2 Old myocardial infarction; M17.0 Bilateral primary osteoarthritis of knee; Z59.00 Homelessness unspecified
CPT/HCPCS: 36415; 80053; 85027; 86780; 87811; C9803-CS; U0003; U0005

== ENCOUNTER 2022-07-29 23:09 | Inpatient (IN) | payer OTHER ==
[2022-07-29 23:41] VITALS: BMI 22.9
[2022-07-30] MEDS ORDERED: IBUPROFEN 400 MG TABLET (FP) PO PRN (00:44)
[2022-07-30] MEDS ORDERED: LOPERAMIDE HCL 2 MG CAPSULE PO PRN (00:44)
[2022-07-30] MEDS ORDERED: POLYETHYLENE GLYCOL (HEALTHYLAX) 3350 17 GM PACKET PO PRN (00:44)
[2022-07-30] MEDS ORDERED: IBUPROFEN 600 MG TABLET (FP) PO PRN (00:44)
[2022-07-30] MEDS ORDERED: DICYCLOMINE HCL 10 MG CAPSULE PO PRN (00:44)
[2022-07-30] MEDS ORDERED: MAG HYDROX/AL HYDROX/SIMETH 30 ML UNIT-DOSE CUP PO PRN (00:44)
[2022-07-30] MEDS ORDERED: NALOXONE HCL 0.4 MG/ML VIAL IM PRN (00:44)
[2022-07-30] MEDS ORDERED: ACETAMINOPHEN 325 MG TABLET (FP) PO PRN (00:44)
[2022-07-30] MEDS ORDERED: ONDANSETRON *ODT* 4 MG TABLET SL PRN (00:44)
[2022-07-30] MEDS ORDERED: METHOCARBAMOL 500 MG TABLET PO PRN (00:44)
[2022-07-30] MEDS ORDERED: BISMUTH SUBSALICYLATE 524 MG/30 ML PO PRN (00:44)
[2022-07-30] MEDS ORDERED: BENZOCAINE/MENTHOL (CHLORASEPTIC ) LOZENGE MM PRN (00:44)
[2022-07-30] MEDS ORDERED: BENZONATATE 200 MG CAPSULE PO PRN (00:44)
[2022-07-30] MEDS ORDERED: guaiFENesin 600 MG TABLET.ER (FP) PO PRN (00:44)
[2022-07-30] MEDS ORDERED: NALOXONE HCL (KLOXXADO) 8 MG SPRAY NS PRN (00:44)
[2022-07-30] MEDS ORDERED: MAGNESIUM HYDROX 2400MG/30ML ORAL SUSPENSION 30 ML CUP PO PRN (00:44)
[2022-07-30] MEDS: PRENATAL VITAMINS W/ FOLIC ACID TABLET (FP) PO SCH (11:00)
[2022-07-30] MEDS ORDERED: THIAMINE HCL 100 MG TABLET (FP) PO SCH (22:00)
[2022-07-30] MEDS ORDERED: MELATONIN 5 MG TABLETS PO SCH (22:00)
[2022-07-31 07:13] VITALS: RESP 18
[2022-07-31] MEDS: PRENATAL VITAMINS W/ FOLIC ACID TABLET (FP) PO SCH (09:40)
[2022-07-31 09:42] VITALS: BP 111/66; PULSE 86; TEMP 97.8
== END 2022-07-31 09:38 | disposition home or self-care (01) | DRG 774 ==
LOC: YASAS 23:09 → Y6N 07-30 01:20
PROVIDERS: ADMIT Allergy & Immunology; ATTEND Allergy & Immunology
PROC: HZ2ZZZZ Detoxification Services for Substance Abuse Treatment (ICD-10-PCS; principal; 2022-07-30)
DX: F10.230 Alcohol dependence with withdrawal, uncomplicated (principal); F14.20 Cocaine dependence, uncomplicated; F17.210 Nicotine dependence, cigarettes, uncomplicated; I10 Essential (primary) hypertension; M17.11 Unilateral primary osteoarthritis, right knee; I25.2 Old myocardial infarction
CPT/HCPCS: 36415; 86780; C9803-CS; U0003; U0005

== ENCOUNTER 2022-08-07 01:33 | Inpatient (IN) | payer OTHER ==
[2022-08-07 01:50] VITALS: RESP 18; BMI 16.4
[2022-08-07] MEDS ORDERED: LOPERAMIDE HCL 2 MG CAPSULE PO PRN (02:02)
[2022-08-07] MEDS ORDERED: ONDANSETRON *ODT* 4 MG TABLET SL PRN (02:02)
[2022-08-07] MEDS ORDERED: IBUPROFEN 600 MG TABLET (FP) PO PRN (02:02)
[2022-08-07] MEDS ORDERED: NALOXONE HCL 0.4 MG/ML VIAL IM PRN (02:02)
[2022-08-07] MEDS ORDERED: IBUPROFEN 400 MG TABLET (FP) PO PRN (02:02)
[2022-08-07] MEDS ORDERED: POLYETHYLENE GLYCOL (HEALTHYLAX) 3350 17 GM PACKET PO PRN (02:02)
[2022-08-07] MEDS ORDERED: ACETAMINOPHEN 325 MG TABLET (FP) PO PRN (02:02)
[2022-08-07] MEDS ORDERED: NICOTINE POLACRILEX 4 MG GUM BUC PRN (02:02)
[2022-08-07] MEDS ORDERED: NALOXONE HCL (KLOXXADO) 8 MG SPRAY NS PRN (02:02)
[2022-08-07] MEDS ORDERED: BENZOCAINE/MENTHOL (CHLORASEPTIC ) LOZENGE MM PRN (02:02)
[2022-08-07] MEDS ORDERED: hydrOXYzine PAMOATE 25 MG CAPSULE (FP) PO PRN (02:02)
[2022-08-07] MEDS ORDERED: DICYCLOMINE HCL 10 MG CAPSULE PO PRN (02:02)
[2022-08-07] MEDS ORDERED: BENZONATATE 200 MG CAPSULE PO PRN (02:02)
[2022-08-07] MEDS ORDERED: BISMUTH SUBSALICYLATE 524 MG/30 ML PO PRN (02:02)
[2022-08-07] MEDS ORDERED: MAG HYDROX/AL HYDROX/SIMETH 30 ML UNIT-DOSE CUP PO PRN (02:02)
[2022-08-07] MEDS ORDERED: guaiFENesin 600 MG TABLET.ER (FP) PO PRN (02:02)
[2022-08-07] MEDS ORDERED: MAGNESIUM HYDROX 2400MG/30ML ORAL SUSPENSION 30 ML CUP PO PRN (02:02)
[2022-08-07 09:32] VITALS: BP 126/68; PULSE 75; TEMP 98.6
[2022-08-07] MEDS ORDERED: NICOTINE 21 MG/24 HOURS TOPICAL PATCH TD SCH (10:00)
[2022-08-07] MEDS ORDERED: PRENATAL VITAMINS W/ FOLIC ACID TABLET (FP) PO SCH (10:00)
[2022-08-07] MEDS ORDERED: THIAMINE HCL 100 MG TABLET (FP) PO SCH (22:00)
[2022-08-07] MEDS ORDERED: MELATONIN 5 MG TABLETS PO SCH (22:00)
== END 2022-08-07 13:04 | disposition home or self-care (01) | DRG 774 ==
LOC: YASAS 01:33 → Y3N 03:49
PROVIDERS: ADMIT Allergy & Immunology; ATTEND Surgery
PROC: HZ2ZZZZ Detoxification Services for Substance Abuse Treatment (ICD-10-PCS; principal; 2022-08-07)
DX: F10.230 Alcohol dependence with withdrawal, uncomplicated (principal); F14.20 Cocaine dependence, uncomplicated; F17.210 Nicotine dependence, cigarettes, uncomplicated; I10 Essential (primary) hypertension; M17.0 Bilateral primary osteoarthritis of knee; Z59.01 Sheltered homelessness
CPT/HCPCS: 36415; 86780; C9803-CS; U0003; U0005

== ENCOUNTER 2022-08-17 03:44 | Inpatient (IN) | payer OTHER ==
[2022-08-17 04:12] VITALS: BMI 22.4
[2022-08-17] MEDS ORDERED: NALOXONE HCL (KLOXXADO) 8 MG SPRAY NS PRN (04:12)
[2022-08-17] MEDS ORDERED: guaiFENesin 600 MG TABLET.ER (FP) PO PRN (04:12)
[2022-08-17] MEDS ORDERED: NALOXONE HCL 0.4 MG/ML VIAL IM PRN (04:12)
[2022-08-17] MEDS ORDERED: BENZOCAINE/MENTHOL (CHLORASEPTIC ) LOZENGE MM PRN (04:12)
[2022-08-17] MEDS ORDERED: BENZONATATE 200 MG CAPSULE PO PRN (04:12)
[2022-08-17] MEDS ORDERED: MAG HYDROX/AL HYDROX/SIMETH 30 ML UNIT-DOSE CUP PO PRN (04:12)
[2022-08-17] MEDS ORDERED: MAGNESIUM HYDROX 2400MG/30ML ORAL SUSPENSION 30 ML CUP PO PRN (04:12)
[2022-08-17] MEDS ORDERED: POLYETHYLENE GLYCOL (HEALTHYLAX) 3350 17 GM PACKET PO PRN (04:12)
[2022-08-17] MEDS ORDERED: IBUPROFEN 400 MG TABLET (FP) PO PRN (04:12)
[2022-08-17] MEDS ORDERED: BISMUTH SUBSALICYLATE 524 MG/30 ML PO PRN (04:12)
[2022-08-17] MEDS ORDERED: IBUPROFEN 600 MG TABLET (FP) PO PRN (04:12)
[2022-08-17] MEDS ORDERED: NICOTINE 10 MG CARTRIDGE (INHALER) IH PRN (04:12)
[2022-08-17] MEDS ORDERED: ONDANSETRON *ODT* 4 MG TABLET SL PRN (04:12)
[2022-08-17] MEDS ORDERED: LOPERAMIDE HCL 2 MG CAPSULE PO PRN (04:12)
[2022-08-17] MEDS ORDERED: DICYCLOMINE HCL 10 MG CAPSULE PO PRN (04:12)
[2022-08-17] MEDS ORDERED: ACETAMINOPHEN 325 MG TABLET (FP) PO PRN (04:12)
[2022-08-17] MEDS ORDERED: METHOCARBAMOL 500 MG TABLET PO PRN (04:12)
[2022-08-17] MEDS ORDERED: NICOTINE 21 MG/24 HOURS TOPICAL PATCH TD SCH (10:00)
[2022-08-17] MEDS ORDERED: PRENATAL VITAMINS W/ FOLIC ACID TABLET (FP) PO SCH (10:00)
[2022-08-17 14:18] VITALS: BP 118/60; PULSE 77; RESP 16; TEMP 97.7
[2022-08-17] MEDS ORDERED: THIAMINE HCL 100 MG TABLET (FP) PO SCH (22:00)
[2022-08-17] MEDS ORDERED: MELATONIN 5 MG TABLETS PO SCH (22:00)
== END 2022-08-17 15:04 | disposition home or self-care (01) | DRG 774 ==
LOC: YASAS 03:44 → Y3N 05:18
PROVIDERS: ADMIT Allergy & Immunology; ATTEND Allergy & Immunology
PROC: HZ2ZZZZ Detoxification Services for Substance Abuse Treatment (ICD-10-PCS; principal; 2022-08-17)
DX: F10.230 Alcohol dependence with withdrawal, uncomplicated (principal); F14.20 Cocaine dependence, uncomplicated; F17.210 Nicotine dependence, cigarettes, uncomplicated; I10 Essential (primary) hypertension; M17.0 Bilateral primary osteoarthritis of knee; I25.2 Old myocardial infarction; Z91.148 Patient's other noncompliance with medication regimen for other reason
CPT/HCPCS: C9803-CS; U0003; U0005

== ENCOUNTER 2022-09-05 02:24 | Inpatient (IN) | payer OTHER ==
[2022-09-05 02:48] VITALS: BMI 23.5
[2022-09-05] MEDS ORDERED: MAGNESIUM HYDROX 2400MG/30ML ORAL SUSPENSION 30 ML CUP PO PRN (03:19)
[2022-09-05] MEDS ORDERED: NALOXONE HCL (KLOXXADO) 8 MG SPRAY NS PRN (03:19)
[2022-09-05] MEDS ORDERED: ONDANSETRON *ODT* 4 MG TABLET SL PRN (03:19)
[2022-09-05] MEDS ORDERED: POLYETHYLENE GLYCOL (HEALTHYLAX) 3350 17 GM PACKET PO PRN (03:19)
[2022-09-05] MEDS ORDERED: LOPERAMIDE HCL 2 MG CAPSULE PO PRN (03:19)
[2022-09-05] MEDS ORDERED: METHOCARBAMOL 500 MG TABLET PO PRN (03:19)
[2022-09-05] MEDS ORDERED: DICYCLOMINE HCL 10 MG CAPSULE PO PRN (03:19)
[2022-09-05] MEDS ORDERED: BENZONATATE 200 MG CAPSULE PO PRN (03:19)
[2022-09-05] MEDS ORDERED: IBUPROFEN 400 MG TABLET (FP) PO PRN (03:19)
[2022-09-05] MEDS ORDERED: IBUPROFEN 600 MG TABLET (FP) PO PRN (03:19)
[2022-09-05] MEDS ORDERED: NALOXONE HCL 0.4 MG/ML VIAL IM PRN (03:19)
[2022-09-05] MEDS ORDERED: NICOTINE POLACRILEX 2 MG GUM BUC PRN (03:19)
[2022-09-05] MEDS ORDERED: MAG HYDROX/AL HYDROX/SIMETH 30 ML UNIT-DOSE CUP PO PRN (03:19)
[2022-09-05] MEDS ORDERED: BENZOCAINE/MENTHOL (CHLORASEPTIC ) LOZENGE MM PRN (03:19)
[2022-09-05] MEDS ORDERED: guaiFENesin 600 MG TABLET.ER (FP) PO PRN (03:19)
[2022-09-05] MEDS ORDERED: ACETAMINOPHEN 325 MG TABLET (FP) PO PRN (03:19)
[2022-09-05] MEDS ORDERED: BISMUTH SUBSALICYLATE 524 MG/30 ML PO PRN (03:19)
[2022-09-05] MEDS: PRENATAL VITAMINS W/ FOLIC ACID TABLET (FP) PO SCH (10:31)
[2022-09-05] MEDS: NICOTINE 21 MG/24 HOURS TOPICAL PATCH TD SCH (10:32)
[2022-09-05] MEDS ORDERED: THIAMINE HCL 100 MG TABLET (FP) PO SCH (22:00)
[2022-09-05] MEDS ORDERED: MELATONIN 5 MG TABLETS PO SCH (22:00)
[2022-09-06 06:46] VITALS: RESP 18
[2022-09-06 09:22] VITALS: BP 147/69; PULSE 76; TEMP 97.6
[2022-09-06] MEDS: PRENATAL VITAMINS W/ FOLIC ACID TABLET (FP) PO SCH (10:26)
[2022-09-06] MEDS: NICOTINE 21 MG/24 HOURS TOPICAL PATCH TD SCH (10:26)
== END 2022-09-06 12:38 | disposition home or self-care (01) | DRG 774 ==
LOC: YASAS 02:24 → Y6N 04:10
PROVIDERS: ADMIT Allergy & Immunology; ATTEND Allergy & Immunology
PROC: HZ2ZZZZ Detoxification Services for Substance Abuse Treatment (ICD-10-PCS; principal; 2022-09-05)
DX: F14.20 Cocaine dependence, uncomplicated (principal); F10.10 Alcohol abuse, uncomplicated; F17.210 Nicotine dependence, cigarettes, uncomplicated; I10 Essential (primary) hypertension; M17.11 Unilateral primary osteoarthritis, right knee; I25.2 Old myocardial infarction; Z59.01 Sheltered homelessness; Z91.199 Patient's noncompliance with other medical treatment and regimen due to unspecified reason
CPT/HCPCS: C9803-CS; U0003; U0005

== ENCOUNTER 2022-10-23 03:05 | Inpatient (IN) | payer OTHER ==
[2022-10-23 03:28] VITALS: BMI 21.9
[2022-10-23] MEDS ORDERED: IBUPROFEN 400 MG TABLET (FP) PO PRN (03:55)
[2022-10-23] MEDS ORDERED: ACETAMINOPHEN 325 MG TABLET (FP) PO PRN (03:55)
[2022-10-23] MEDS ORDERED: LOPERAMIDE HCL 2 MG CAPSULE PO PRN (03:55)
[2022-10-23] MEDS ORDERED: MAG HYDROX/AL HYDROX/SIMETH 30 ML UNIT-DOSE CUP PO PRN (03:55)
[2022-10-23] MEDS ORDERED: NALOXONE HCL (KLOXXADO) 8 MG SPRAY NS PRN (03:55)
[2022-10-23] MEDS ORDERED: MAGNESIUM HYDROX 2400MG/30ML ORAL SUSPENSION 30 ML CUP PO PRN (03:55)
[2022-10-23] MEDS ORDERED: ONDANSETRON *ODT* 4 MG TABLET SL PRN (03:55)
[2022-10-23] MEDS ORDERED: guaiFENesin 600 MG TABLET.ER (FP) PO PRN (03:55)
[2022-10-23] MEDS ORDERED: NALOXONE HCL 0.4 MG/ML VIAL IM PRN (03:55)
[2022-10-23] MEDS ORDERED: IBUPROFEN 600 MG TABLET (FP) PO PRN (03:55)
[2022-10-23] MEDS ORDERED: BISMUTH SUBSALICYLATE 524 MG/30 ML PO PRN (03:55)
[2022-10-23] MEDS ORDERED: BENZONATATE 200 MG CAPSULE PO PRN (03:55)
[2022-10-23] MEDS ORDERED: NICOTINE 10 MG CARTRIDGE (INHALER) IH PRN (03:55)
[2022-10-23] MEDS ORDERED: DICYCLOMINE HCL 10 MG CAPSULE PO PRN (03:55)
[2022-10-23] MEDS ORDERED: BENZOCAINE/MENTHOL (CHLORASEPTIC ) LOZENGE MM PRN (03:55)
[2022-10-23] MEDS ORDERED: POLYETHYLENE GLYCOL (HEALTHYLAX) 3350 17 GM PACKET PO PRN (03:55)
[2022-10-23] MEDS ORDERED: METHOCARBAMOL 500 MG TABLET PO PRN (03:55)
[2022-10-23] MEDS: PRENATAL VITAMINS W/ FOLIC ACID TABLET (FP) PO SCH (10:41)
[2022-10-23] MEDS: NICOTINE 21 MG/24 HOURS TOPICAL PATCH TD SCH (10:42)
[2022-10-23] MEDS ORDERED: THIAMINE HCL 100 MG TABLET (FP) PO SCH (22:00)
[2022-10-23] MEDS ORDERED: MELATONIN 5 MG TABLETS PO SCH (22:00)
[2022-10-24 08:47] VITALS: BP 153/80; PULSE 85; RESP 18; TEMP 97.8
[2022-10-24] MEDS: NICOTINE 21 MG/24 HOURS TOPICAL PATCH TD SCH (09:36)
[2022-10-24] MEDS: PRENATAL VITAMINS W/ FOLIC ACID TABLET (FP) PO SCH (09:36)
[2022-10-24 12:03] LABS: HEMATOCRIT 38.9 % (35.4-49); HEMOGLOBIN 12.9 GM/dL (11.7-16.9); MCH 27.2 pg (25.7-33.7); MCHC 33.1 g/dl (32.0-35.9); MEAN CELL VOLUME 82.2 fl (80-96); PLATELET COUNT 269 10^3/uL (134-434); RBC 4.73 M/mm3 (4.00-5.60); RDW 15.5 % (11.9-15.9); WHITE BLOOD COUNT 5.1 K/mm3 (4.0-10.0)
[2022-10-24 12:08] LABS: POTASSIUM 4.1 mmol/L (3.5-5.1)
[2022-10-24 12:13] LABS: CALCIUM 9.2 mg/dL (8.5-10.1)
[2022-10-24 12:14] LABS: BLOOD UREA NITROGEN 11.1 mg/dL (7-18)
[2022-10-24 12:17] LABS: CREATININE 0.9 mg/dL (0.55-1.3)
[2022-10-24 12:19] LABS: BILIRUBIN,TOTAL 0.4 mg/dL (0.2-1); TOT PROT 6.5 g/dl (6.4-8.2)
== END 2022-10-24 10:00 | disposition home or self-care (01) | DRG 774 ==
LOC: YASAS 03:05 → Y6N 04:43
PROVIDERS: ADMIT Allergy & Immunology; ATTEND Surgery
PROC: HZ2ZZZZ Detoxification Services for Substance Abuse Treatment (ICD-10-PCS; principal; 2022-10-23)
DX: F10.230 Alcohol dependence with withdrawal, uncomplicated (principal); F14.20 Cocaine dependence, uncomplicated; F17.210 Nicotine dependence, cigarettes, uncomplicated; I10 Essential (primary) hypertension; I25.2 Old myocardial infarction; M17.11 Unilateral primary osteoarthritis, right knee; Z86.59 Personal history of other mental and behavioral disorders
CPT/HCPCS: 36415; 80053; 85027; 86780; 87635

== ENCOUNTER 2022-11-06 01:47 | Inpatient (IN) | payer OTHER ==
[2022-11-06 02:23] VITALS: BMI 23.5
[2022-11-06] MEDS ORDERED: NICOTINE 10 MG CARTRIDGE (INHALER) IH PRN (05:04)
[2022-11-06] MEDS ORDERED: BISMUTH SUBSALICYLATE 524 MG/30 ML PO PRN (05:04)
[2022-11-06] MEDS ORDERED: LOPERAMIDE HCL 2 MG CAPSULE PO PRN (05:04)
[2022-11-06] MEDS ORDERED: NALOXONE HCL 0.4 MG/ML VIAL IM PRN (05:04)
[2022-11-06] MEDS ORDERED: METHOCARBAMOL 500 MG TABLET PO PRN (05:04)
[2022-11-06] MEDS ORDERED: ACETAMINOPHEN 325 MG TABLET (FP) PO PRN (05:04)
[2022-11-06] MEDS ORDERED: DICYCLOMINE HCL 10 MG CAPSULE PO PRN (05:04)
[2022-11-06] MEDS ORDERED: MAGNESIUM HYDROX 2400MG/30ML ORAL SUSPENSION 30 ML CUP PO PRN (05:04)
[2022-11-06] MEDS ORDERED: BENZONATATE 200 MG CAPSULE PO PRN (05:04)
[2022-11-06] MEDS ORDERED: guaiFENesin 600 MG TABLET.ER (FP) PO PRN (05:04)
[2022-11-06] MEDS ORDERED: ONDANSETRON *ODT* 4 MG TABLET SL PRN (05:04)
[2022-11-06] MEDS ORDERED: BENZOCAINE/MENTHOL (CHLORASEPTIC ) LOZENGE MM PRN (05:04)
[2022-11-06] MEDS ORDERED: NALOXONE HCL (KLOXXADO) 8 MG SPRAY NS PRN (05:04)
[2022-11-06] MEDS ORDERED: POLYETHYLENE GLYCOL (HEALTHYLAX) 3350 17 GM PACKET PO PRN (05:04)
[2022-11-06] MEDS ORDERED: MAG HYDROX/AL HYDROX/SIMETH 30 ML UNIT-DOSE CUP PO PRN (05:04)
[2022-11-06] MEDS ORDERED: IBUPROFEN 400 MG TABLET (FP) PO PRN (05:04)
[2022-11-06] MEDS ORDERED: IBUPROFEN 600 MG TABLET (FP) PO PRN (05:04)
[2022-11-06] MEDS: NICOTINE 21 MG/24 HOURS TOPICAL PATCH TD SCH (10:54)
[2022-11-06] MEDS: PRENATAL VITAMINS W/ FOLIC ACID TABLET (FP) PO SCH (10:54)
[2022-11-06 15:05] LABS: HEMOGLOBIN 12.7 GM/dL (11.7-16.9); MCH 27.2 pg (25.7-33.7); MCHC 33.6 g/dl (32.0-35.9); MEAN CELL VOLUME 81.1 fl (80-96); MEAN PLT VOLUME 7.8 fl (7.5-11.1); PLATELET COUNT 277 10^3/uL (134-434); POTASSIUM 4.2 mmol/L (3.5-5.1); RBC 4.68 M/mm3 (4.00-5.60); RDW 15.7 % (11.9-15.9); WHITE BLOOD COUNT 3.6 K/mm3 (4.0-10.0)
[2022-11-06 15:07] LABS: CALCIUM 9.3 mg/dL (8.5-10.1)
[2022-11-06 15:08] LABS: ALBUMIN 3.2 g/dl (3.4-5.0); BLOOD UREA NITROGEN 16.6 mg/dL (7-18)
[2022-11-06 15:11] LABS: CREATININE 1.2 mg/dL (0.55-1.3)
[2022-11-06 15:13] LABS: BILIRUBIN,TOTAL 0.3 mg/dL (0.2-1); TOT PROT 6.3 g/dl (6.4-8.2)
[2022-11-06] MEDS ORDERED: THIAMINE HCL 100 MG TABLET (FP) PO SCH (22:00)
[2022-11-06] MEDS ORDERED: MELATONIN 5 MG TABLETS PO SCH (22:00)
[2022-11-07 09:47] VITALS: BP 145/85; PULSE 85; RESP 16; TEMP 98.4
[2022-11-07] MEDS: PRENATAL VITAMINS W/ FOLIC ACID TABLET (FP) PO SCH (10:43)
[2022-11-07] MEDS: NICOTINE 21 MG/24 HOURS TOPICAL PATCH TD SCH (10:43)
== END 2022-11-07 10:54 | disposition home or self-care (01) | DRG 774 ==
LOC: YASAS 01:47 → Y6N 05:12
PROVIDERS: ADMIT Allergy & Immunology; ATTEND Allergy & Immunology
PROC: HZ2ZZZZ Detoxification Services for Substance Abuse Treatment (ICD-10-PCS; principal; 2022-11-06)
DX: F10.230 Alcohol dependence with withdrawal, uncomplicated (principal); F14.20 Cocaine dependence, uncomplicated; F17.213 Nicotine dependence, cigarettes, with withdrawal; I10 Essential (primary) hypertension; I25.2 Old myocardial infarction; M17.0 Bilateral primary osteoarthritis of knee; Z56.0 Unemployment, unspecified; Z59.01 Sheltered homelessness
CPT/HCPCS: 36415; 80053; 85027; 86780; 87635

== ENCOUNTER 2023-02-12 01:30 | Inpatient (IN) | payer OTHER ==
[2023-02-12 02:18] VITALS: BMI 23.9
[2023-02-12] MEDS ORDERED: ONDANSETRON *ODT* 4 MG TABLET SL PRN (02:40)
[2023-02-12] MEDS ORDERED: NICOTINE POLACRILEX 4 MG GUM BUC PRN (02:40)
[2023-02-12] MEDS ORDERED: guaiFENesin 600 MG TABLET.ER (FP) PO PRN (02:40)
[2023-02-12] MEDS ORDERED: NALOXONE HCL (KLOXXADO) 8 MG SPRAY NS PRN (02:40)
[2023-02-12] MEDS ORDERED: NALOXONE HCL 0.4 MG/ML VIAL IM PRN (02:40)
[2023-02-12] MEDS ORDERED: BENZOCAINE/MENTHOL (CHLORASEPTIC ) LOZENGE MM PRN (02:40)
[2023-02-12] MEDS ORDERED: MAGNESIUM HYDROX 2400MG/30ML ORAL SUSPENSION 30 ML CUP PO PRN (02:40)
[2023-02-12] MEDS ORDERED: IBUPROFEN 400 MG TABLET (FP) PO PRN (02:40)
[2023-02-12] MEDS ORDERED: POLYETHYLENE GLYCOL (HEALTHYLAX) 3350 17 GM PACKET PO PRN (02:40)
[2023-02-12] MEDS ORDERED: hydrOXYzine PAMOATE 25 MG CAPSULE (FP) PO PRN (02:40)
[2023-02-12] MEDS ORDERED: BENZONATATE 200 MG CAPSULE PO PRN (02:40)
[2023-02-12] MEDS ORDERED: BISMUTH SUBSALICYLATE 524 MG/30 ML PO PRN (02:40)
[2023-02-12] MEDS ORDERED: DICYCLOMINE HCL 10 MG CAPSULE PO PRN (02:40)
[2023-02-12] MEDS ORDERED: chlordiazePOXIDE HCL 25 MG CAPSULE PO PRN (02:40)
[2023-02-12] MEDS ORDERED: MAG HYDROX/AL HYDROX/SIMETH 30 ML UNIT-DOSE CUP PO PRN (02:40)
[2023-02-12] MEDS ORDERED: LOPERAMIDE HCL 2 MG CAPSULE PO PRN (02:40)
[2023-02-12] MEDS ORDERED: chlordiazePOXIDE HCL 25 MG CAPSULE PO ONE (03:15)
[2023-02-12] MEDS ORDERED: chlordiazePOXIDE HCL 25 MG CAPSULE ONE (03:16)
[2023-02-12] MEDS: chlordiazePOXIDE HCL 25 MG CAPSULE PO SCH ×4 (05:58→23:59)
[2023-02-12] MEDS: NICOTINE 21 MG/24 HOURS TOPICAL PATCH TD SCH (10:38)
[2023-02-12] MEDS: PRENATAL VITAMINS W/ FOLIC ACID TABLET (FP) PO SCH (10:38)
[2023-02-12] MEDS: METHOCARBAMOL 500 MG TABLET PO PRN (17:31)
[2023-02-12] MEDS: MELATONIN 5 MG TABLETS PO SCH (23:59)
[2023-02-12] MEDS: THIAMINE HCL 100 MG TABLET (FP) PO SCH (23:59)
[2023-02-13] MEDS: chlordiazePOXIDE HCL 25 MG CAPSULE PO SCH ×4 (05:15→22:39)
[2023-02-13 09:30] LABS: HEMATOCRIT 36.2 % (35.4-49); HEMOGLOBIN 12.2 GM/dL (11.7-16.9); MCH 27.5 pg (25.7-33.7); MCHC 33.6 g/dl (32.0-35.9); MEAN CELL VOLUME 81.8 fl (80-96); MEAN PLT VOLUME 7.7 fl (7.5-11.1); PLATELET COUNT 218 10^3/uL (134-434); RBC 4.43 M/mm3 (4.00-5.60); RDW 15.1 % (11.9-15.9); WHITE BLOOD COUNT 4.4 K/mm3 (4.0-10.0)
[2023-02-13 09:33] LABS: POTASSIUM 4.2 mmol/L (3.5-5.1)
[2023-02-13 09:48] LABS: BLOOD UREA NITROGEN 12.8 mg/dL (7-18)
[2023-02-13 09:51] LABS: CALCIUM 8.7 mg/dL (8.5-10.1)
[2023-02-13 09:54] LABS: CREATININE 0.8 mg/dL (0.55-1.3)
[2023-02-13 09:57] LABS: BILIRUBIN,TOTAL 0.6 mg/dL (0.2-1); TOT PROT 6.2 g/dl (6.4-8.2)
[2023-02-13] MEDS: PRENATAL VITAMINS W/ FOLIC ACID TABLET (FP) PO SCH (10:12)
[2023-02-13] MEDS: METHOCARBAMOL 500 MG TABLET PO PRN (10:12)
[2023-02-13] MEDS: NICOTINE 21 MG/24 HOURS TOPICAL PATCH TD SCH (10:13)
[2023-02-13] MEDS: THIAMINE HCL 100 MG TABLET (FP) PO SCH (22:39)
[2023-02-13] MEDS: MELATONIN 5 MG TABLETS PO SCH (22:39)
[2023-02-14] MEDS ORDERED: chlordiazePOXIDE HCL 10 MG CAPSULE PO PRN
[2023-02-14] MEDS: chlordiazePOXIDE HCL 10 MG CAPSULE PO SCH ×4 (05:32→22:34)
[2023-02-14] MEDS: IBUPROFEN 600 MG TABLET (FP) PO PRN ×2 (05:33→22:34)
[2023-02-14] MEDS: PRENATAL VITAMINS W/ FOLIC ACID TABLET (FP) PO SCH (10:18)
[2023-02-14] MEDS: METHOCARBAMOL 500 MG TABLET PO PRN (10:19)
[2023-02-14] MEDS: NICOTINE 21 MG/24 HOURS TOPICAL PATCH TD SCH (10:20)
[2023-02-14] MEDS: MELATONIN 5 MG TABLETS PO SCH (22:32)
[2023-02-14] MEDS: THIAMINE HCL 100 MG TABLET (FP) PO SCH (22:35)
[2023-02-15] MEDS: chlordiazePOXIDE HCL 10 MG CAPSULE PO SCH ×2 (05:29→17:05)
[2023-02-15] MEDS: PRENATAL VITAMINS W/ FOLIC ACID TABLET (FP) PO SCH (10:19)
[2023-02-15] MEDS: NICOTINE 21 MG/24 HOURS TOPICAL PATCH TD SCH (10:19)
[2023-02-15] MEDS: IBUPROFEN 600 MG TABLET (FP) PO PRN (10:20)
[2023-02-15] MEDS: METHOCARBAMOL 500 MG TABLET PO PRN (10:21)
[2023-02-15] MEDS: ACETAMINOPHEN 325 MG TABLET (FP) PO PRN (17:07)
[2023-02-15] MEDS: THIAMINE HCL 100 MG TABLET (FP) PO SCH (22:55)
[2023-02-15] MEDS: MELATONIN 5 MG TABLETS PO SCH (22:55)
[2023-02-16] MEDS ORDERED: chlordiazePOXIDE HCL 10 MG CAPSULE PO ONE (05:00)
[2023-02-16] MEDS: ACETAMINOPHEN 325 MG TABLET (FP) PO PRN (07:24)
[2023-02-16] MEDS: PRENATAL VITAMINS W/ FOLIC ACID TABLET (FP) PO SCH (09:32)
[2023-02-16] MEDS: NICOTINE 21 MG/24 HOURS TOPICAL PATCH TD SCH (09:32)
[2023-02-16 12:20] VITALS: BP 133/73; PULSE 86; RESP 14; TEMP 97.9
== END 2023-02-16 13:50 | disposition home or self-care (01) | DRG 774 ==
LOC: YASAS 01:30 → Y6N 02:54
PROVIDERS: ADMIT Allergy & Immunology; ATTEND Surgery
PROC: HZ2ZZZZ Detoxification Services for Substance Abuse Treatment (ICD-10-PCS; principal; 2023-02-12)
DX: F10.230 Alcohol dependence with withdrawal, uncomplicated (principal); F14.20 Cocaine dependence, uncomplicated; F17.210 Nicotine dependence, cigarettes, uncomplicated; I10 Essential (primary) hypertension; I25.2 Old myocardial infarction; M17.0 Bilateral primary osteoarthritis of knee
CPT/HCPCS: 36415; 80053; 85027; 86780; 87635; 87811

== ENCOUNTER 2023-02-24 23:41 | Inpatient (IN) | payer OTHER ==
[2023-02-25 00:29] VITALS: BMI 22.6
[2023-02-25] MEDS ORDERED: DICYCLOMINE HCL 10 MG CAPSULE PO PRN (01:34)
[2023-02-25] MEDS ORDERED: hydrOXYzine PAMOATE 25 MG CAPSULE (FP) PO PRN (01:34)
[2023-02-25] MEDS ORDERED: LOPERAMIDE HCL 2 MG CAPSULE PO PRN (01:34)
[2023-02-25] MEDS ORDERED: NALOXONE HCL (KLOXXADO) 8 MG SPRAY NS PRN (01:34)
[2023-02-25] MEDS ORDERED: BISMUTH SUBSALICYLATE 524 MG/30 ML PO PRN (01:34)
[2023-02-25] MEDS ORDERED: IBUPROFEN 400 MG TABLET (FP) PO PRN (01:34)
[2023-02-25] MEDS ORDERED: MAG HYDROX/AL HYDROX/SIMETH 30 ML UNIT-DOSE CUP PO PRN (01:34)
[2023-02-25] MEDS ORDERED: MAGNESIUM HYDROX 2400MG/30ML ORAL SUSPENSION 30 ML CUP PO PRN (01:34)
[2023-02-25] MEDS ORDERED: NALOXONE HCL 0.4 MG/ML VIAL IM PRN (01:34)
[2023-02-25] MEDS ORDERED: IBUPROFEN 600 MG TABLET (FP) PO PRN (01:34)
[2023-02-25] MEDS ORDERED: POLYETHYLENE GLYCOL (HEALTHYLAX) 3350 17 GM PACKET PO PRN (01:34)
[2023-02-25] MEDS ORDERED: guaiFENesin 600 MG TABLET.ER (FP) PO PRN (01:34)
[2023-02-25] MEDS ORDERED: ONDANSETRON *ODT* 4 MG TABLET SL PRN (01:34)
[2023-02-25] MEDS ORDERED: ACETAMINOPHEN 325 MG TABLET (FP) PO PRN (01:34)
[2023-02-25] MEDS: BENZOCAINE/MENTHOL (CHLORASEPTIC ) LOZENGE MM PRN (07:27)
[2023-02-25 09:17] VITALS: RESP 18
[2023-02-25] MEDS: NICOTINE 14 MG/24 HOURS TOPICAL PATCH TD SCH (10:32)
[2023-02-25] MEDS: PRENATAL VITAMINS W/ FOLIC ACID TABLET (FP) PO SCH (10:32)
[2023-02-25] MEDS: BENZONATATE 200 MG CAPSULE PO PRN (18:18)
[2023-02-25] MEDS ORDERED: MELATONIN 5 MG TABLETS PO SCH (22:00)
[2023-02-25] MEDS ORDERED: THIAMINE HCL 100 MG TABLET (FP) PO SCH (22:00)
[2023-02-26] MEDS: BENZONATATE 200 MG CAPSULE PO PRN (05:28)
[2023-02-26] MEDS: BENZOCAINE/MENTHOL (CHLORASEPTIC ) LOZENGE MM PRN (05:28)
[2023-02-26 09:08] VITALS: BP 109/57; PULSE 89; TEMP 97.5
[2023-02-26] MEDS: PRENATAL VITAMINS W/ FOLIC ACID TABLET (FP) PO SCH (10:01)
[2023-02-26] MEDS: NICOTINE 14 MG/24 HOURS TOPICAL PATCH TD SCH (10:02)
[2023-02-26 11:35] LABS: HEMATOCRIT 35.7 % (35.4-49); MCH 27.7 pg (25.7-33.7); MCHC 33.7 g/dl (32.0-35.9); MEAN CELL VOLUME 82.2 fl (80-96); MEAN PLT VOLUME 7.4 fl (7.5-11.1); PLATELET COUNT 308 10^3/uL (134-434); RBC 4.35 M/mm3 (4.00-5.60); RDW 15.1 % (11.9-15.9); WHITE BLOOD COUNT 4.4 K/mm3 (4.0-10.0)
[2023-02-26 11:36] LABS: POTASSIUM 4.2 mmol/L (3.5-5.1)
[2023-02-26 11:44] LABS: BLOOD UREA NITROGEN 16.2 mg/dL (7-18); CALCIUM 8.6 mg/dL (8.5-10.1)
[2023-02-26 11:48] LABS: BILIRUBIN,TOTAL 0.6 mg/dL (0.2-1); TOT PROT 6.4 g/dl (6.4-8.2)
== END 2023-02-26 10:20 | disposition home or self-care (01) | DRG 774 ==
LOC: YASAS 23:41 → Y6N 02-25 01:58
PROVIDERS: ADMIT Allergy & Immunology; ATTEND Allergy & Immunology
PROC: HZ2ZZZZ Detoxification Services for Substance Abuse Treatment (ICD-10-PCS; principal; 2023-02-25)
DX: F10.20 Alcohol dependence, uncomplicated (principal); F14.20 Cocaine dependence, uncomplicated; F17.210 Nicotine dependence, cigarettes, uncomplicated; I10 Essential (primary) hypertension; M17.0 Bilateral primary osteoarthritis of knee; I25.2 Old myocardial infarction
CPT/HCPCS: 26055; 36415; 80053; 80307; 85027; 86780; 87635; 87811

== ENCOUNTER 2023-03-26 03:51 | Inpatient (IN) | payer OTHER ==
[2023-03-26 04:19] VITALS: BMI 21.5
[2023-03-26] MEDS ORDERED: BISMUTH SUBSALICYLATE 524 MG/30 ML PO PRN (04:37)
[2023-03-26] MEDS ORDERED: NALOXONE HCL 0.4 MG/ML VIAL IM PRN (04:37)
[2023-03-26] MEDS ORDERED: BENZONATATE 200 MG CAPSULE PO PRN (04:37)
[2023-03-26] MEDS ORDERED: BENZOCAINE/MENTHOL (CHLORASEPTIC ) LOZENGE MM PRN (04:37)
[2023-03-26] MEDS ORDERED: NALOXONE HCL (KLOXXADO) 8 MG SPRAY NS PRN (04:37)
[2023-03-26] MEDS ORDERED: MAGNESIUM HYDROX 2400MG/30ML ORAL SUSPENSION 30 ML CUP PO PRN (04:37)
[2023-03-26] MEDS ORDERED: MAG HYDROX/AL HYDROX/SIMETH 30 ML UNIT-DOSE CUP PO PRN (04:37)
[2023-03-26] MEDS ORDERED: IBUPROFEN 600 MG TABLET (FP) PO PRN (04:37)
[2023-03-26] MEDS ORDERED: guaiFENesin 600 MG TABLET.ER (FP) PO PRN (04:37)
[2023-03-26] MEDS ORDERED: ACETAMINOPHEN 325 MG TABLET (FP) PO PRN (04:37)
[2023-03-26] MEDS ORDERED: IBUPROFEN 400 MG TABLET (FP) PO PRN (04:37)
[2023-03-26] MEDS ORDERED: POLYETHYLENE GLYCOL (HEALTHYLAX) 3350 17 GM PACKET PO PRN (04:37)
[2023-03-26] MEDS ORDERED: NICOTINE POLACRILEX 4 MG GUM BUC PRN (04:37)
[2023-03-26] MEDS ORDERED: LOPERAMIDE HCL 2 MG CAPSULE PO PRN (04:37)
[2023-03-26] MEDS ORDERED: ONDANSETRON *ODT* 4 MG TABLET SL PRN (04:37)
[2023-03-26] MEDS: PRENATAL VITAMINS W/ FOLIC ACID TABLET (FP) PO SCH (10:52)
[2023-03-26] MEDS: NICOTINE 21 MG/24 HOURS TOPICAL PATCH TD SCH (10:52)
[2023-03-26] MEDS ORDERED: THIAMINE HCL 100 MG TABLET (FP) PO SCH (22:00)
[2023-03-26] MEDS ORDERED: MELATONIN 5 MG TABLETS PO SCH (22:00)
[2023-03-27 06:03] VITALS: PULSE 80
[2023-03-27] MEDS: PRENATAL VITAMINS W/ FOLIC ACID TABLET (FP) PO SCH (09:26)
[2023-03-27] MEDS: NICOTINE 21 MG/24 HOURS TOPICAL PATCH TD SCH (09:27)
[2023-03-27 09:29] VITALS: BP 120/68; RESP 17; TEMP 97.9
[2023-03-27 10:50] LABS: HEMATOCRIT 41.9 % (35.4-49); HEMOGLOBIN 13.7 GM/dL (11.7-16.9); MCH 27.6 pg (25.7-33.7); MCHC 32.6 g/dl (32.0-35.9); MEAN CELL VOLUME 84.8 fl (80-96); MEAN PLT VOLUME 8.3 fl (7.5-11.1); PLATELET COUNT 277 10^3/uL (134-434); RBC 4.94 M/mm3 (4.00-5.60)
[2023-03-27 10:54] LABS: POTASSIUM 4.1 mmol/L (3.5-5.1)
[2023-03-27 11:03] LABS: ALBUMIN 3.6 g/dl (3.4-5.0)
[2023-03-27 11:06] LABS: CREATININE 1.3 mg/dL (0.55-1.3)
[2023-03-27 11:08] LABS: BILIRUBIN,TOTAL 0.5 mg/dL (0.2-1); TOT PROT 7.3 g/dl (6.4-8.2)
== END 2023-03-27 12:05 | disposition home or self-care (01) | DRG 774 ==
LOC: YASAS 03:51 → Y3N 05:04
PROVIDERS: ADMIT Allergy & Immunology; ATTEND Surgery
PROC: HZ2ZZZZ Detoxification Services for Substance Abuse Treatment (ICD-10-PCS; principal; 2023-03-26)
DX: F10.20 Alcohol dependence, uncomplicated (principal); F14.20 Cocaine dependence, uncomplicated; F17.210 Nicotine dependence, cigarettes, uncomplicated; I10 Essential (primary) hypertension; I25.2 Old myocardial infarction; M17.0 Bilateral primary osteoarthritis of knee
CPT/HCPCS: 36415; 80053; 80307; 85027; 86780; 87635; 93005; 93010

== ENCOUNTER 2023-04-22 16:59 | Emergency (ER) | payer OTHER ==
[2023-04-22 17:08] VITALS: BP 168/89; PULSE 113; RESP 20; TEMP 100.4; BMI 21.5
[2023-04-22] MEDS ORDERED: ACETAMINOPHEN 325 MG TABLET (FP) PO STA (17:41)
[2023-04-22] MEDS ORDERED: ACETAMINOPHEN 325 MG TABLET (FP) ONE (18:09)
== END 2023-04-22 22:32 | disposition home or self-care (01) ==
LOC: JER 16:59
DX: S00.81XA Abrasion of other part of head, initial encounter (principal); W01.198A Fall on same level from slipping, tripping and stumbling with subsequent striking against other object, initial encounter; Z20.822 Contact with and (suspected) exposure to COVID-19
CPT/HCPCS: 0241U-QW; 70450-TC; 72125-TC; 99284-25

== ENCOUNTER 2023-04-29 01:04 | Inpatient (IN) | payer OTHER ==
[2023-04-29 01:46] VITALS: BMI 21.5
[2023-04-29] MEDS ORDERED: BENZONATATE 200 MG CAPSULE PO PRN (04:42)
[2023-04-29] MEDS ORDERED: ACETAMINOPHEN 325 MG TABLET (FP) PO PRN (04:42)
[2023-04-29] MEDS ORDERED: NALOXONE HCL 0.4 MG/ML VIAL IM PRN (04:42)
[2023-04-29] MEDS ORDERED: MAGNESIUM HYDROX 2400MG/30ML ORAL SUSPENSION 30 ML CUP PO PRN (04:42)
[2023-04-29] MEDS ORDERED: COLLOIDAL OATMEAL 1 BAR EACH TP PRN (04:42)
[2023-04-29] MEDS ORDERED: LOPERAMIDE HCL 2 MG CAPSULE PO PRN (04:42)
[2023-04-29] MEDS ORDERED: MAG HYDROX/AL HYDROX/SIMETH 30 ML UNIT-DOSE CUP PO PRN (04:42)
[2023-04-29] MEDS ORDERED: POLYETHYLENE GLYCOL (HEALTHYLAX) 3350 17 GM PACKET PO PRN (04:42)
[2023-04-29] MEDS ORDERED: guaiFENesin 600 MG TABLET.ER (FP) PO PRN (04:42)
[2023-04-29] MEDS ORDERED: NALOXONE HCL (KLOXXADO) 8 MG SPRAY NS PRN (04:42)
[2023-04-29] MEDS ORDERED: NICOTINE POLACRILEX 2 MG GUM BUC PRN (04:42)
[2023-04-29] MEDS ORDERED: IBUPROFEN 400 MG TABLET (FP) PO PRN (04:42)
[2023-04-29] MEDS ORDERED: BENZOCAINE/MENTHOL (CHLORASEPTIC ) LOZENGE MM PRN (04:42)
[2023-04-29] MEDS: PRENATAL VITAMINS W/ FOLIC ACID TABLET (FP) PO SCH (09:59)
[2023-04-29] MEDS: NICOTINE 21 MG/24 HOURS TOPICAL PATCH TD SCH (09:59)
[2023-04-29] MEDS: MELATONIN 5 MG TABLETS PO SCH (21:30)
[2023-04-29] MEDS: THIAMINE HCL 100 MG TABLET (FP) PO SCH (21:30)
[2023-04-30] MEDS: PRENATAL VITAMINS W/ FOLIC ACID TABLET (FP) PO SCH (09:40)
[2023-04-30] MEDS: NICOTINE 21 MG/24 HOURS TOPICAL PATCH TD SCH (09:40)
[2023-04-30 09:59] LABS: HEMATOCRIT 35.2 % (35.4-49); HEMOGLOBIN 11.7 GM/dL (11.7-16.9); MCH 27.4 pg (25.7-33.7); MCHC 33.2 g/dl (32.0-35.9); MEAN CELL VOLUME 82.6 fl (80-96); RBC 4.26 M/mm3 (4.00-5.60); WHITE BLOOD COUNT 7.4 K/mm3 (4.0-10.0)
[2023-04-30 10:00] LABS: MEAN PLT VOLUME 7.5 fl (7.5-11.1); PLATELET COUNT 353 10^3/uL (134-434); RDW 14.3 % (11.9-15.9)
[2023-04-30 10:05] LABS: POTASSIUM 4.1 mmol/L (3.5-5.1)
[2023-04-30 10:11] LABS: ALBUMIN 2.7 g/dl (3.4-5.0); BLOOD UREA NITROGEN 16.2 mg/dL (7-18)
[2023-04-30 10:15] LABS: BILIRUBIN,TOTAL 0.5 mg/dL (0.2-1); TOT PROT 5.8 g/dl (6.4-8.2)
[2023-04-30] MEDS ORDERED: BISMUTH SUBSALICYLATE 262 MG/15 ML BTL PO PRN (10:47)
[2023-04-30] MEDS ORDERED: hydrOXYzine PAMOATE 25 MG CAPSULE (FP) PO PRN (10:47)
[2023-04-30] MEDS ORDERED: DICYCLOMINE HCL 10 MG CAPSULE PO PRN (10:47)
[2023-04-30] MEDS ORDERED: ONDANSETRON *ODT* 4 MG TABLET SL PRN (10:47)
[2023-04-30 11:09] LABS: SYPHILIS W/ RPR CONF NON-REACTIVE (NONREACTIVE)
[2023-04-30] MEDS: HYDROCHLOROTHIAZIDE 12.5 MG CAPSULE (FP) PO SCH (11:51)
[2023-04-30 16:23] LABS: URINE APPEARANCE CLEAR; URINE BILIRUBIN NEGATIVE (NEGATIVE); URINE COLOR YELLOW; URINE GLUCOSE (UA) NEGATIVE (NEGATIVE); URINE KETONE NEGATIVE (NEGATIVE); URINE LEUK ESTERASE NEGATIVE (NEGATIVE); URINE NITRITE NEGATIVE (NEGATIVE); URINE PROTEIN NEGATIVE (NEGATIVE); URINE UROBILINOGEN 0.2 mg/dL (0.2-1.0)
[2023-04-30] MEDS: MELATONIN 5 MG TABLETS PO SCH (21:18)
[2023-04-30] MEDS: THIAMINE HCL 100 MG TABLET (FP) PO SCH (21:18)
[2023-04-30] MEDS: IBUPROFEN 600 MG TABLET (FP) PO PRN (21:18)
[2023-05-01] MEDS: PRENATAL VITAMINS W/ FOLIC ACID TABLET (FP) PO SCH (09:44)
[2023-05-01] MEDS: NICOTINE 21 MG/24 HOURS TOPICAL PATCH TD SCH (09:44)
[2023-05-01] MEDS: HYDROCHLOROTHIAZIDE 12.5 MG CAPSULE (FP) PO SCH (09:44)
[2023-05-01] MEDS: THIAMINE HCL 100 MG TABLET (FP) PO SCH (21:18)
[2023-05-01] MEDS: MELATONIN 5 MG TABLETS PO SCH (21:18)
[2023-05-02] MEDS: PRENATAL VITAMINS W/ FOLIC ACID TABLET (FP) PO SCH (09:37)
[2023-05-02] MEDS: NICOTINE 21 MG/24 HOURS TOPICAL PATCH TD SCH (09:37)
[2023-05-02] MEDS: HYDROCHLOROTHIAZIDE 12.5 MG CAPSULE (FP) PO SCH (09:38)
[2023-05-02] MEDS: MELATONIN 5 MG TABLETS PO SCH (21:24)
[2023-05-02] MEDS: THIAMINE HCL 100 MG TABLET (FP) PO SCH (21:24)
[2023-05-03] MEDS: HYDROCHLOROTHIAZIDE 12.5 MG CAPSULE (FP) PO SCH (09:59)
[2023-05-03] MEDS: PRENATAL VITAMINS W/ FOLIC ACID TABLET (FP) PO SCH (09:59)
[2023-05-03] MEDS: NICOTINE 21 MG/24 HOURS TOPICAL PATCH TD SCH (10:00)
[2023-05-03] MEDS ORDERED: NICOTINE 21 MG/24 HOURS TOPICAL PATCH TD PRN (12:27)
[2023-05-03] MEDS: MELATONIN 5 MG TABLETS PO SCH (22:11)
[2023-05-03] MEDS: THIAMINE HCL 100 MG TABLET (FP) PO SCH (22:11)
[2023-05-04] MEDS: HYDROCHLOROTHIAZIDE 12.5 MG CAPSULE (FP) PO SCH (10:06)
[2023-05-04] MEDS: PRENATAL VITAMINS W/ FOLIC ACID TABLET (FP) PO SCH (10:06)
[2023-05-04] MEDS: MELATONIN 5 MG TABLETS PO SCH (21:39)
[2023-05-04] MEDS: THIAMINE HCL 100 MG TABLET (FP) PO SCH (21:39)
[2023-05-05] MEDS: HYDROCHLOROTHIAZIDE 12.5 MG CAPSULE (FP) PO SCH (09:21)
[2023-05-05] MEDS: PRENATAL VITAMINS W/ FOLIC ACID TABLET (FP) PO SCH (09:21)
[2023-05-05] MEDS: MELATONIN 5 MG TABLETS PO SCH (21:34)
[2023-05-05] MEDS: THIAMINE HCL 100 MG TABLET (FP) PO SCH (21:34)
[2023-05-06] MEDS: HYDROCHLOROTHIAZIDE 12.5 MG CAPSULE (FP) PO SCH (09:40)
[2023-05-06] MEDS: PRENATAL VITAMINS W/ FOLIC ACID TABLET (FP) PO SCH (09:40)
[2023-05-06] MEDS: IBUPROFEN 600 MG TABLET (FP) PO PRN (11:16)
[2023-05-06] MEDS: MELATONIN 5 MG TABLETS PO SCH (21:41)
[2023-05-06] MEDS: THIAMINE HCL 100 MG TABLET (FP) PO SCH (21:41)
[2023-05-07] MEDS: PRENATAL VITAMINS W/ FOLIC ACID TABLET (FP) PO SCH (09:43)
[2023-05-07] MEDS: HYDROCHLOROTHIAZIDE 12.5 MG CAPSULE (FP) PO SCH (09:43)
[2023-05-07] MEDS: THIAMINE HCL 100 MG TABLET (FP) PO SCH (21:38)
[2023-05-07] MEDS: MELATONIN 5 MG TABLETS PO SCH (21:38)
[2023-05-08] MEDS: HYDROCHLOROTHIAZIDE 12.5 MG CAPSULE (FP) PO SCH (10:02)
[2023-05-08] MEDS: PRENATAL VITAMINS W/ FOLIC ACID TABLET (FP) PO SCH (10:02)
[2023-05-08] MEDS: THIAMINE HCL 100 MG TABLET (FP) PO SCH (21:28)
[2023-05-08] MEDS: MELATONIN 5 MG TABLETS PO SCH (21:28)
[2023-05-09] MEDS: HYDROCHLOROTHIAZIDE 12.5 MG CAPSULE (FP) PO SCH (10:04)
[2023-05-09] MEDS: PRENATAL VITAMINS W/ FOLIC ACID TABLET (FP) PO SCH (10:04)
[2023-05-09] MEDS: THIAMINE HCL 100 MG TABLET (FP) PO SCH (21:34)
[2023-05-09] MEDS: MELATONIN 5 MG TABLETS PO SCH (21:34)
[2023-05-10] MEDS: HYDROCHLOROTHIAZIDE 12.5 MG CAPSULE (FP) PO SCH (12:13)
[2023-05-10] MEDS: PRENATAL VITAMINS W/ FOLIC ACID TABLET (FP) PO SCH (12:13)
[2023-05-10] MEDS: THIAMINE HCL 100 MG TABLET (FP) PO SCH (22:17)
[2023-05-10] MEDS: MELATONIN 5 MG TABLETS PO SCH (22:17)
[2023-05-11] MEDS: HYDROCHLOROTHIAZIDE 12.5 MG CAPSULE (FP) PO SCH (09:55)
[2023-05-11] MEDS: PRENATAL VITAMINS W/ FOLIC ACID TABLET (FP) PO SCH (09:55)
[2023-05-11] MEDS: THIAMINE HCL 100 MG TABLET (FP) PO SCH (22:53)
[2023-05-11] MEDS: MELATONIN 5 MG TABLETS PO SCH (22:53)
[2023-05-12] MEDS: HYDROCHLOROTHIAZIDE 12.5 MG CAPSULE (FP) PO SCH (09:54)
[2023-05-12] MEDS: PRENATAL VITAMINS W/ FOLIC ACID TABLET (FP) PO SCH (09:55)
[2023-05-12] MEDS: THIAMINE HCL 100 MG TABLET (FP) PO SCH (22:00)
[2023-05-12] MEDS: MELATONIN 5 MG TABLETS PO SCH (22:00)
[2023-05-13] MEDS: HYDROCHLOROTHIAZIDE 12.5 MG CAPSULE (FP) PO SCH (09:07)
[2023-05-13] MEDS: PRENATAL VITAMINS W/ FOLIC ACID TABLET (FP) PO SCH (09:07)
[2023-05-13] MEDS: MELATONIN 5 MG TABLETS PO SCH (21:29)
[2023-05-13] MEDS: THIAMINE HCL 100 MG TABLET (FP) PO SCH (21:29)
[2023-05-14 06:41] VITALS: RESP 16; TEMP 98.4
[2023-05-14 09:04] VITALS: BP 104/63; PULSE 90
== END 2023-05-14 08:47 | disposition home or self-care (01) | DRG 772 ==
LOC: YASAS 01:04 → Y3E 02:29
PROVIDERS: ADMIT Allergy & Immunology; ATTEND Psychiatry & Neurology Pain Medicine
PROC: HZ42ZZZ Group Counseling for Substance Abuse Treatment, Cognitive-Behavioral (ICD-10-PCS; principal; 2023-04-29)
DX: F10.20 Alcohol dependence, uncomplicated (principal); F14.20 Cocaine dependence, uncomplicated; F17.210 Nicotine dependence, cigarettes, uncomplicated; I10 Essential (primary) hypertension; M17.0 Bilateral primary osteoarthritis of knee; I25.2 Old myocardial infarction
CPT/HCPCS: 36415; 80053; 80307; 81003; 85027; 86780; 86803; 87635

== ENCOUNTER 2023-06-09 01:47 | Emergency (ER) | payer OTHER ==
[2023-06-09 01:54] VITALS: BMI 21.5
[2023-06-09 04:02] LABS: BASO % 0.7 % (0-2.0); EOS % 2.5 % (0-4.5); HEMOGLOBIN 11.9 GM/dL (11.7-16.9); LYMPH % 22.7 % (8-40); MCH 27.8 pg (25.7-33.7); MCHC 34.1 g/dl (32.0-35.9); MEAN CELL VOLUME 81.5 fl (80-96); MEAN PLT VOLUME 7.6 fl (7.5-11.1); MONO % 13.9 % (3.8-10.2); NEUT % 60.2 % (42.8-82.8); PLATELET COUNT 318 10^3/uL (134-434); RBC 4.29 M/mm3 (4.00-5.60); RDW 15.3 % (11.9-15.9); WHITE BLOOD COUNT 5.9 K/mm3 (4.0-10.0)
[2023-06-09 04:19] LABS: POTASSIUM 3.8 mmol/L (3.5-5.1)
[2023-06-09 04:22] LABS: ALBUMIN 3.1 g/dl (3.4-5.0); BLOOD UREA NITROGEN 20.7 mg/dL (7-18); CALCIUM 8.9 mg/dL (8.5-10.1)
[2023-06-09 04:26] LABS: BILIRUBIN,TOTAL 0.5 mg/dL (0.2-1); CREATININE 1.2 mg/dL (0.55-1.3); TOT PROT 6.6 g/dl (6.4-8.2)
[2023-06-09 04:30] LABS: N-TERMINAL BNP 138.2 pg/ml (5-125)
[2023-06-09 05:09] VITALS: BP 128/72; PULSE 87; RESP 18; TEMP 98.3
== END 2023-06-09 05:09 | disposition home or self-care (01) ==
LOC: JER 01:47
DX: R07.89 Other chest pain (principal); R42 Dizziness and giddiness
CPT/HCPCS: 36415; 71046-TC-FY; 80053; 83880; 84484; 85025; 93005; 93010; 99285-25

== ENCOUNTER 2023-06-22 00:26 | Inpatient (IN) | payer OTHER ==
[2023-06-22] MEDS ORDERED: NALOXONE HCL 0.4 MG/ML VIAL IM PRN (01:05)
[2023-06-22] MEDS ORDERED: POLYETHYLENE GLYCOL (HEALTHYLAX) 3350 17 GM PACKET PO PRN (01:05)
[2023-06-22] MEDS ORDERED: NALOXONE HCL (KLOXXADO) 8 MG SPRAY NS PRN (01:05)
[2023-06-22] MEDS ORDERED: MAG HYDROX/AL HYDROX/SIMETH 30 ML UNIT-DOSE CUP PO PRN (01:05)
[2023-06-22] MEDS ORDERED: LOPERAMIDE HCL 2 MG CAPSULE PO PRN (01:05)
[2023-06-22] MEDS ORDERED: MAGNESIUM HYDROX 2400MG/30ML ORAL SUSPENSION 30 ML CUP PO PRN (01:05)
[2023-06-22] MEDS ORDERED: BENZOCAINE/MENTHOL (CHLORASEPTIC ) LOZENGE MM PRN (01:05)
[2023-06-22] MEDS ORDERED: NICOTINE POLACRILEX 4 MG GUM BUC PRN (01:05)
[2023-06-22] MEDS ORDERED: BENZONATATE 200 MG CAPSULE PO PRN (01:05)
[2023-06-22] MEDS: cloNIDine HCL 0.1 MG TABLET PO ONE (01:57)
[2023-06-22] MEDS: PRENATAL VITAMINS W/ FOLIC ACID TABLET (FP) PO SCH (09:46)
[2023-06-22] MEDS: HYDROCHLOROTHIAZIDE 12.5 MG CAPSULE (FP) PO SCH (09:47)
[2023-06-22] MEDS: NICOTINE 21 MG/24 HOURS TOPICAL PATCH TD SCH (09:47)
[2023-06-22] MEDS ORDERED: cloNIDine HCL 0.1 MG TABLET PO PRN ×2 (11:38→11:47)
[2023-06-22 14:45] LABS: PH,URINE 6.5 (5.0-8.0); URINE APPEARANCE CLEAR; URINE BILIRUBIN NEGATIVE (NEGATIVE); URINE COLOR YELLOW; URINE GLUCOSE (UA) TRACE (NEGATIVE); URINE KETONE NEGATIVE (NEGATIVE); URINE LEUK ESTERASE NEGATIVE (NEGATIVE); URINE NITRITE NEGATIVE (NEGATIVE); URINE PROTEIN NEGATIVE (NEGATIVE); URINE UROBILINOGEN 0.2 mg/dL (0.2-1.0)
[2023-06-22] MEDS: ACETAMINOPHEN 325 MG TABLET (FP) PO PRN (15:05)
[2023-06-22] MEDS: THIAMINE HCL 100 MG TABLET (FP) PO SCH (22:24)
[2023-06-22] MEDS: MELATONIN 5 MG TABLETS PO SCH (22:24)
[2023-06-23] MEDS: guaiFENesin 600 MG TABLET.ER (FP) PO PRN (10:02)
[2023-06-23] MEDS: IBUPROFEN 600 MG TABLET (FP) PO PRN (10:06)
[2023-06-23 11:50] LABS: POTASSIUM 4.4 mmol/L (3.5-5.1)
[2023-06-23 11:56] LABS: HEMOGLOBIN 11.8 GM/dL (11.7-16.9); MCH 28.2 pg (25.7-33.7); MCHC 34.6 g/dl (32.0-35.9); MEAN CELL VOLUME 81.6 fl (80-96); MEAN PLT VOLUME 8.5 fl (7.5-11.1); PLATELET COUNT 322 10^3/uL (134-434); RBC 4.17 M/mm3 (4.00-5.60); RDW 15.1 % (11.9-15.9)
[2023-06-23 11:57] LABS: ALBUMIN 3.2 g/dl (3.4-5.0); BLOOD UREA NITROGEN 15.3 mg/dL (7-18); CALCIUM 9.6 mg/dL (8.5-10.1)
[2023-06-23 12:00] LABS: CREATININE 1.1 mg/dL (0.55-1.3)
[2023-06-23 12:01] LABS: BILIRUBIN,TOTAL 0.3 mg/dL (0.2-1); TOT PROT 6.5 g/dl (6.4-8.2)
[2023-06-23] MEDS: hydrOXYzine PAMOATE 25 MG CAPSULE (FP) PO PRN (21:34)
[2023-06-29] MEDS: IBUPROFEN 400 MG TABLET (FP) PO PRN (06:27)
[2023-07-02] MEDS ORDERED: BENZOCAINE 20 % GEL TUBE MM PRN (13:51)
[2023-07-02] MEDS ORDERED: PANTOPRAZOLE 20 MG TABLET PO PRN (13:58)
[2023-07-02] MEDS: AMOX TR/POT CLAV 500MG/125MG TABLETS (FP) PO SCH (18:01)
[2023-07-13 08:48] VITALS: RESP 18; TEMP 97.8
[2023-07-13 10:56] VITALS: BP 149/77; PULSE 94
== END 2023-07-13 09:17 | disposition home or self-care (01) | DRG 772 ==
LOC: YASAS 00:26 → Y3E 04:33
PROVIDERS: ADMIT Allergy & Immunology; ATTEND Psychiatry & Neurology Pain Medicine
PROC: HZ42ZZZ Group Counseling for Substance Abuse Treatment, Cognitive-Behavioral (ICD-10-PCS; principal; 2023-06-22)
DX: F10.20 Alcohol dependence, uncomplicated (principal); F14.20 Cocaine dependence, uncomplicated; F17.210 Nicotine dependence, cigarettes, uncomplicated; F32.A Depression, unspecified; I10 Essential (primary) hypertension; K02.9 Dental caries, unspecified; K21.9 Gastro-esophageal reflux disease without esophagitis; I25.2 Old myocardial infarction; Z56.0 Unemployment, unspecified; Z59.00 Homelessness unspecified
CPT/HCPCS: 0241U-QW; 36415; 80053; 80305; 80307; 81003; 85027; 86780; 87635; 87811; 93005; 93010

== ENCOUNTER 2023-08-10 21:03 | Inpatient (IN) | payer OTHER ==
[2023-08-10 22:03] VITALS: BMI 21.5
[2023-08-11] MEDS ORDERED: MAGNESIUM HYDROX 2400MG/30ML ORAL SUSPENSION 30 ML CUP PO PRN (00:31)
[2023-08-11] MEDS ORDERED: NALOXONE HCL (KLOXXADO) 8 MG SPRAY NS PRN (00:31)
[2023-08-11] MEDS ORDERED: ONDANSETRON *ODT* 4 MG TABLET SL PRN (00:31)
[2023-08-11] MEDS ORDERED: ACETAMINOPHEN 325 MG TABLET (FP) PO PRN (00:31)
[2023-08-11] MEDS ORDERED: MAG HYDROX/AL HYDROX/SIMETH 30 ML UNIT-DOSE CUP PO PRN (00:31)
[2023-08-11] MEDS ORDERED: IBUPROFEN 400 MG TABLET (FP) PO PRN (00:31)
[2023-08-11] MEDS ORDERED: NALOXONE HCL 0.4 MG/ML VIAL IM PRN (00:31)
[2023-08-11] MEDS ORDERED: BENZOCAINE/MENTHOL (CHLORASEPTIC ) LOZENGE MM PRN (00:31)
[2023-08-11] MEDS ORDERED: NICOTINE POLACRILEX 2 MG GUM BUC PRN (00:31)
[2023-08-11] MEDS ORDERED: BENZONATATE 200 MG CAPSULE PO PRN (00:31)
[2023-08-11] MEDS ORDERED: guaiFENesin 600 MG TABLET.ER (FP) PO PRN (00:31)
[2023-08-11] MEDS ORDERED: LOPERAMIDE HCL 2 MG CAPSULE PO PRN (00:31)
[2023-08-11] MEDS ORDERED: POLYETHYLENE GLYCOL (HEALTHYLAX) 3350 17 GM PACKET PO PRN (00:31)
[2023-08-11] MEDS ORDERED: BISMUTH SUBSALICYLATE 524 MG/30 ML PO PRN (00:31)
[2023-08-11] MEDS: IBUPROFEN 600 MG TABLET (FP) PO PRN (10:20)
[2023-08-11] MEDS: NICOTINE 21 MG/24 HOURS TOPICAL PATCH TD SCH (10:20)
[2023-08-11] MEDS: PRENATAL VITAMINS W/ FOLIC ACID TABLET (FP) PO SCH (10:20)
[2023-08-11] MEDS ORDERED: diazePAM 5 MG TABLET PO PRN (10:45)
[2023-08-11] MEDS: diazePAM 5 MG TABLET PO SCH (11:10)
[2023-08-11] MEDS: THIAMINE HCL 100 MG TABLET (FP) PO SCH (22:33)
[2023-08-11] MEDS: MELATONIN 5 MG TABLETS PO SCH (22:33)
[2023-08-12 10:38] LABS: POTASSIUM 4.1 mmol/L (3.5-5.1)
[2023-08-12 10:41] LABS: HEMATOCRIT 34.3 % (35.4-49); HEMOGLOBIN 11.6 GM/dL (11.7-16.9); MCH 27.6 pg (25.7-33.7); MCHC 33.7 g/dl (32.0-35.9); MEAN CELL VOLUME 81.9 fl (80-96); MEAN PLT VOLUME 7.3 fl (7.5-11.1); PLATELET COUNT 337 10^3/uL (134-434); RBC 4.18 M/mm3 (4.00-5.60); RDW 15.6 % (11.9-15.9); WHITE BLOOD COUNT 3.6 K/mm3 (4.0-10.0)
[2023-08-12 10:44] LABS: ALBUMIN 2.7 g/dl (3.4-5.0); BLOOD UREA NITROGEN 13.7 mg/dL (7-18); CALCIUM 8.6 mg/dL (8.5-10.1)
[2023-08-12 10:47] LABS: CREATININE 0.9 mg/dL (0.55-1.3)
[2023-08-12 10:48] LABS: BILIRUBIN,TOTAL 0.3 mg/dL (0.2-1); TOT PROT 5.7 g/dl (6.4-8.2)
[2023-08-13] MEDS: diazePAM 5 MG TABLET PO SCH (05:32)
[2023-08-13 09:06] VITALS: BP 126/70; PULSE 71; RESP 17; TEMP 97.9
[2023-08-14] MEDS ORDERED: diazePAM 5 MG TABLET PO SCH (06:00)
[2023-08-15] MEDS ORDERED: diazePAM 5 MG TABLET PO ONE (06:00)
== END 2023-08-13 11:03 | disposition home or self-care (01) | DRG 774 ==
LOC: YASAS 21:03 → Y3N 08-11 00:02
PROVIDERS: ADMIT Allergy & Immunology; ATTEND Surgery
PROC: HZ2ZZZZ Detoxification Services for Substance Abuse Treatment (ICD-10-PCS; principal; 2023-08-11)
DX: F10.230 Alcohol dependence with withdrawal, uncomplicated (principal); F14.20 Cocaine dependence, uncomplicated; F17.210 Nicotine dependence, cigarettes, uncomplicated; F32.A Depression, unspecified; I10 Essential (primary) hypertension; M17.11 Unilateral primary osteoarthritis, right knee; I25.2 Old myocardial infarction; Z86.69 Personal history of other diseases of the nervous system and sense organs; Z59.00 Homelessness unspecified
CPT/HCPCS: 36415; 80053; 80307; 85027; 86780; 93005; 93010

== ENCOUNTER 2023-10-11 18:05 | Inpatient (IN) | payer OTHER ==
[2023-10-11 19:34] VITALS: BMI 21.5
[2023-10-11] MEDS ORDERED: BENZONATATE 200 MG CAPSULE PO PRN (22:36)
[2023-10-11] MEDS ORDERED: BENZOCAINE/MENTHOL (CHLORASEPTIC ) LOZENGE MM PRN (22:36)
[2023-10-11] MEDS ORDERED: POLYETHYLENE GLYCOL (HEALTHYLAX) 3350 17 GM PACKET PO PRN (22:36)
[2023-10-11] MEDS ORDERED: IBUPROFEN 400 MG TABLET (FP) PO PRN (22:36)
[2023-10-11] MEDS ORDERED: P-EPHED 60MG/TRIPROLIDI 2.5MG TABLET PO PRN (22:36)
[2023-10-11] MEDS ORDERED: LOPERAMIDE HCL 2 MG CAPSULE PO PRN (22:36)
[2023-10-11] MEDS ORDERED: MAG HYDROX/AL HYDROX/SIMETH 30 ML UNIT-DOSE CUP PO PRN (22:36)
[2023-10-11] MEDS ORDERED: NICOTINE POLACRILEX 2 MG GUM BUC PRN (22:36)
[2023-10-11] MEDS ORDERED: NICOTINE POLACRILEX 2 MG LOZENGE BC PRN (22:36)
[2023-10-11] MEDS ORDERED: MAGNESIUM HYDROX 2400MG/30ML ORAL SUSPENSION 30 ML CUP PO PRN (22:36)
[2023-10-11] MEDS ORDERED: guaiFENesin 600 MG TABLET.ER (FP) PO PRN (22:36)
[2023-10-11] MEDS ORDERED: ACETAMINOPHEN 325 MG TABLET (FP) PO PRN (22:36)
[2023-10-11] MEDS ORDERED: MELATONIN 5 MG TABLETS ONE (23:27)
[2023-10-11] MEDS: MELATONIN 5 MG TABLETS PO SCH (23:30)
[2023-10-12] MEDS: PRENATAL VITAMINS W/ FOLIC ACID TABLET (FP) PO SCH (10:18)
[2023-10-12] MEDS: IBUPROFEN 600 MG TABLET (FP) PO PRN (10:19)
[2023-10-12 10:29] LABS: HEMOGLOBIN 12.7 GM/dL (11.7-16.9); MCHC 34.4 g/dl (32.0-35.9); MEAN CELL VOLUME 81.4 fl (80-96); MEAN PLT VOLUME 7.9 fl (7.5-11.1); PLATELET COUNT 255 10^3/uL (134-434); RBC 4.54 M/mm3 (4.00-5.60); RDW 15.7 % (11.9-15.9); WHITE BLOOD COUNT 4.3 K/mm3 (4.0-10.0)
[2023-10-12 10:35] LABS: CHLORIDE 110 mmol/L (98-107); SODIUM 143 mmol/L (136-145)
[2023-10-12 10:49] LABS: CALCIUM 8.8 mg/dL (8.5-10.1)
[2023-10-12 10:50] LABS: ALBUMIN 2.8 g/dl (3.4-5.0); ANION GAP 6 mmol/L (4-13); BLOOD UREA NITROGEN 16.8 mg/dL (7-18); CO2 27 mmol/L (21-32); GLUCOSE,RANDOM 102 mg/dL (74-106)
[2023-10-12 10:53] LABS: CREATININE 0.9 mg/dL (0.55-1.3); SGOT/AST 20 U/L (15-37); SGPT/ALT 19 U/L (13-61)
[2023-10-12 10:54] LABS: BILIRUBIN,TOTAL 0.4 mg/dL (0.2-1)
[2023-10-12 10:55] LABS: TOT PROT 5.9 g/dl (6.4-8.2)
[2023-10-12 10:59] LABS: ALK PHOS 88 U/L (45-117)
[2023-10-12 13:20] LABS: URINE APPEARANCE CLEAR; URINE BILIRUBIN NEGATIVE (NEGATIVE); URINE COLOR YELLOW; URINE GLUCOSE (UA) 1+ (NEGATIVE); URINE KETONE NEGATIVE (NEGATIVE); URINE LEUK ESTERASE NEGATIVE (NEGATIVE); URINE NITRITE NEGATIVE (NEGATIVE); URINE PROTEIN NEGATIVE (NEGATIVE)
[2023-10-12] MEDS: THIAMINE 100 MG TABLET PO SCH (21:48)
[2023-10-15] MEDS: HYDROCHLOROTHIAZIDE 12.5 MG CAPSULE (FP) PO SCH (15:50)
[2023-10-16 07:27] VITALS: RESP 17; TEMP 98.3
[2023-10-16 09:26] VITALS: BP 119/72; PULSE 83
== END 2023-10-16 10:55 | disposition home or self-care (01) | DRG 772 ==
LOC: YASAS 18:05 → Y3NR 22:55 → Y3E 10-12 13:43
PROVIDERS: ADMIT Allergy & Immunology; ATTEND Psychiatry & Neurology Pain Medicine
PROC: HZ42ZZZ Group Counseling for Substance Abuse Treatment, Cognitive-Behavioral (ICD-10-PCS; principal; 2023-10-11)
DX: F10.20 Alcohol dependence, uncomplicated (principal); F14.20 Cocaine dependence, uncomplicated; F17.210 Nicotine dependence, cigarettes, uncomplicated; F32.A Depression, unspecified; I10 Essential (primary) hypertension; I25.2 Old myocardial infarction; M17.11 Unilateral primary osteoarthritis, right knee; Z59.01 Sheltered homelessness; Z56.0 Unemployment, unspecified
CPT/HCPCS: 36415; 80053; 80305; 80307; 81003; 85027; 86780; 87811

== ENCOUNTER 2024-03-24 01:16 | Inpatient (IN) | payer OTHER ==
[2024-03-24 02:07] VITALS: BMI 25.5
[2024-03-24] MEDS: NALOXONE (NYS OPIOID OVERDOSE PROGRAM) 4 MG/0.1 ML SPRAY NS SCH (03:47)
[2024-03-24] MEDS ORDERED: POLYETHYLENE GLYCOL (HEALTHYLAX) 3350 17 GM PACKET PO PRN (05:17)
[2024-03-24] MEDS ORDERED: IBUPROFEN 400 MG TABLET (FP) PO PRN (05:17)
[2024-03-24] MEDS ORDERED: NICOTINE POLACRILEX 2 MG GUM BUC PRN (05:17)
[2024-03-24] MEDS ORDERED: MAGNESIUM HYDROX 2400MG/30ML ORAL SUSPENSION 30 ML CUP PO PRN (05:17)
[2024-03-24] MEDS ORDERED: NALOXONE (NARCAN) HCL 4 MG/0.1 ML SPRAY NS PRN (05:17)
[2024-03-24] MEDS ORDERED: MAG HYDROX/AL HYDROX/SIMETH 30 ML UNIT-DOSE CUP PO PRN (05:17)
[2024-03-24] MEDS ORDERED: BENZOCAINE/MENTHOL (CHLORASEPTIC ) LOZENGE MM PRN (05:17)
[2024-03-24] MEDS ORDERED: BENZONATATE 200 MG CAPSULE PO PRN (05:17)
[2024-03-24] MEDS ORDERED: guaiFENesin 600 MG TABLET.ER (FP) PO PRN (05:17)
[2024-03-24] MEDS ORDERED: LOPERAMIDE HCL 2 MG CAPSULE PO PRN (05:17)
[2024-03-24] MEDS ORDERED: ACETAMINOPHEN 325 MG TABLET (FP) PO PRN (05:17)
[2024-03-24] MEDS: NICOTINE 14 MG/24 HOURS TOPICAL PATCH TD SCH (10:39)
[2024-03-24] MEDS: PRENATAL VITAMINS W/ FOLIC ACID TABLET (FP) PO SCH (10:39)
[2024-03-24] MEDS: THIAMINE 100 MG TABLET PO SCH (21:07)
[2024-03-24] MEDS: MELATONIN 5 MG TABLETS PO SCH (21:07)
[2024-03-25 11:33] LABS: URINE APPEARANCE CLEAR; URINE BILIRUBIN NEGATIVE (NEGATIVE); URINE COLOR YELLOW; URINE GLUCOSE (UA) NEGATIVE (NEGATIVE); URINE KETONE NEGATIVE (NEGATIVE); URINE LEUK ESTERASE NEGATIVE (NEGATIVE); URINE NITRITE NEGATIVE (NEGATIVE); URINE PROTEIN NEGATIVE (NEGATIVE); URINE UROBILINOGEN 0.2 mg/dL (0.2-1.0)
[2024-03-25 11:34] LABS: HEMATOCRIT 30.2 % (35.4-49); HEMOGLOBIN 10.5 GM/dL (11.7-16.9); MCH 27.6 pg (25.7-33.7); MCHC 34.6 g/dl (32.0-35.9); MEAN CELL VOLUME 79.7 fl (80-96); PLATELET COUNT 419 10^3/uL (134-434); RBC 3.79 M/mm3 (4.00-5.60); RDW 15.5 % (11.9-15.9); WHITE BLOOD COUNT 4.7 K/mm3 (4.0-10.0)
[2024-03-25 12:09] LABS: POTASSIUM 4.7 mmol/L (3.5-5.1)
[2024-03-25 12:11] LABS: CALCIUM 9.2 mg/dL (8.5-10.1)
[2024-03-25 12:12] LABS: BLOOD UREA NITROGEN 21.6 mg/dL (7-18)
[2024-03-25 12:15] LABS: CREATININE 1.2 mg/dL (0.55-1.3)
[2024-03-25 12:16] LABS: BILIRUBIN,TOTAL 0.3 mg/dL (0.2-1); TOT PROT 6.5 g/dl (6.4-8.2)
[2024-03-25] MEDS ORDERED: NALOXONE (NYS OPIOID OVERDOSE PROGRAM) 4 MG/0.1 ML SPRAY NS PRN (15:46)
[2024-04-01] MEDS: IBUPROFEN 600 MG TABLET (FP) PO PRN (19:41)
[2024-04-07 07:07] VITALS: BP 124/79; PULSE 95; RESP 16; TEMP 97.6
[2024-04-07] MEDS: NALOXONE (NYS OPIOID OVERDOSE PROGRAM) 4 MG/0.1 ML SPRAY NS SCH (09:08)
== END 2024-04-07 09:13 | disposition home or self-care (01) | DRG 772 ==
LOC: YASAS 01:16 → Y3W 04:08
PROVIDERS: ADMIT Psychiatry & Neurology Pain Medicine; ATTEND Psychiatry & Neurology Pain Medicine
PROC: HZ42ZZZ Group Counseling for Substance Abuse Treatment, Cognitive-Behavioral (ICD-10-PCS; principal; 2024-03-24)
DX: F14.20 Cocaine dependence, uncomplicated (principal); F17.210 Nicotine dependence, cigarettes, uncomplicated; F32.A Depression, unspecified; I10 Essential (primary) hypertension; I25.2 Old myocardial infarction; M17.11 Unilateral primary osteoarthritis, right knee; Z91.81 History of falling; Z86.69 Personal history of other diseases of the nervous system and sense organs; Z59.01 Sheltered homelessness
CPT/HCPCS: 36415; 80053; 80305; 80307; 81003; 82962; 85027; 86780; 87811; 93005; 93010

== ENCOUNTER 2024-05-21 08:20 | Inpatient (IN) | payer OTHER ==
[2024-05-21 08:52] VITALS: BMI 22.2
[2024-05-21] MEDS ORDERED: LOPERAMIDE HCL 2 MG CAPSULE PO PRN (09:03)
[2024-05-21] MEDS ORDERED: DOCUSATE SODIUM 100 MG CAPSULE (FP) PO PRN (09:03)
[2024-05-21] MEDS ORDERED: NICOTINE POLACRILEX 2 MG LOZENGE BC PRN (09:03)
[2024-05-21] MEDS ORDERED: MAG HYDROX/AL HYDROX/SIMETH 30 ML UNIT-DOSE CUP PO PRN (09:03)
[2024-05-21] MEDS ORDERED: IBUPROFEN 400 MG TABLET (FP) PO PRN (09:03)
[2024-05-21] MEDS ORDERED: POLYETHYLENE GLYCOL (HEALTHYLAX) 3350 17 GM PACKET PO PRN (09:03)
[2024-05-21] MEDS ORDERED: BENZONATATE 200 MG CAPSULE PO PRN (09:03)
[2024-05-21] MEDS ORDERED: guaiFENesin 600 MG TABLET.ER (FP) PO PRN (09:03)
[2024-05-21] MEDS ORDERED: NICOTINE POLACRILEX 2 MG GUM BUC PRN (09:03)
[2024-05-21] MEDS ORDERED: NALOXONE (NARCAN) HCL 4 MG/0.1 ML SPRAY NS PRN (09:03)
[2024-05-21] MEDS ORDERED: MAGNESIUM HYDROX 2400MG/30ML ORAL SUSPENSION 30 ML CUP PO PRN (09:03)
[2024-05-21] MEDS ORDERED: METOPROLOL TARTRATE 25 MG TABLET (FP) ONE (09:44)
[2024-05-21] MEDS: METOPROLOL TARTRATE 25 MG TABLET (FP) PO ONE (09:47)
[2024-05-21] MEDS: PRENATAL VITAMINS W/ FOLIC ACID TABLET (FP) PO SCH (09:48)
[2024-05-21] MEDS: ASPIRIN COATED 81 MG TABLET.EC PO SCH (10:29)
[2024-05-21] MEDS: THIAMINE 100 MG TABLET PO SCH (22:58)
[2024-05-21] MEDS: MELATONIN 5 MG TABLETS PO SCH (22:58)
[2024-05-22 03:26] LABS: URINE APPEARANCE CLEAR; URINE BILIRUBIN NEGATIVE (NEGATIVE); URINE COLOR YELLOW; URINE GLUCOSE (UA) NEGATIVE (NEGATIVE); URINE KETONE TRACE (NEGATIVE); URINE LEUK ESTERASE NEGATIVE (NEGATIVE); URINE NITRITE NEGATIVE (NEGATIVE); URINE PROTEIN TRACE (NEGATIVE)
[2024-05-22 11:33] LABS: POTASSIUM 3.9 mmol/L (3.5-5.1)
[2024-05-22 11:40] LABS: HEMATOCRIT 31.6 % (35.4-49); HEMOGLOBIN 10.8 GM/dL (11.7-16.9); MCH 26.7 pg (25.7-33.7); MCHC 34.1 g/dl (32.0-35.9); MEAN CELL VOLUME 78.3 fl (80-96); MEAN PLT VOLUME 7.7 fl (7.5-11.1); PLATELET COUNT 330 10^3/uL (134-434); RBC 4.04 M/mm3 (4.00-5.60); RDW 16.8 % (11.9-15.9); WHITE BLOOD COUNT 5.9 K/mm3 (4.0-10.0)
[2024-05-22 11:42] LABS: ALBUMIN 2.7 g/dl (3.4-5.0); CALCIUM 8.9 mg/dL (8.5-10.1)
[2024-05-22 11:43] LABS: BLOOD UREA NITROGEN 11.1 mg/dL (7-18)
[2024-05-22 11:47] LABS: BILIRUBIN,TOTAL 0.9 mg/dL (0.2-1)
[2024-05-23] MEDS: BENZOCAINE/MENTHOL (CHLORASEPTIC ) LOZENGE MM PRN (08:52)
[2024-05-23] MEDS: IBUPROFEN 600 MG TABLET (FP) PO PRN (10:59)
[2024-05-26] MEDS ORDERED: ASPIRIN COATED 81 MG TABLET.EC PO PRN ×2 (08:15→08:31)
[2024-05-26] MEDS ORDERED: PRENATAL VITAMINS W/ FOLIC ACID TABLET (FP) PO PRN (08:16)
[2024-05-31 06:41] VITALS: RESP 16
[2024-06-02] MEDS: ACETAMINOPHEN 325 MG TABLET (FP) PO PRN (11:26)
[2024-06-03 07:19] VITALS: BP 108/71; PULSE 88; TEMP 98
== END 2024-06-03 10:25 | disposition home or self-care (01) | DRG 772 ==
LOC: YASAS 08:20 → Y3NR 10:37 → Y3E 05-22 09:19
PROVIDERS: ADMIT Psychiatry & Neurology Pain Medicine; ATTEND Psychiatry & Neurology Pain Medicine
PROC: HZ42ZZZ Group Counseling for Substance Abuse Treatment, Cognitive-Behavioral (ICD-10-PCS; principal; 2024-05-21)
DX: F14.20 Cocaine dependence, uncomplicated (principal); F10.10 Alcohol abuse, uncomplicated; F17.210 Nicotine dependence, cigarettes, uncomplicated; F32.A Depression, unspecified; I10 Essential (primary) hypertension; I25.2 Old myocardial infarction; M17.11 Unilateral primary osteoarthritis, right knee; Z59.01 Sheltered homelessness
CPT/HCPCS: 36415; 80053; 81003; 85027; 86780